=== PATIENT | female | born 1945 | race Caucasian/White ===

== ENCOUNTER 2016-11-16 15:22 | Inpatient (IN) ==
[~2016-11-16 15:22] MED LIST: *HR* Etomidate 20 MG/10 ML AMPUL IVP ONE; *HR* Midazolam HCl 5 MG/5 ML VIAL IVP ONE
[2016-11-16] MEDS ORDERED: Ipratropium/Albuterol Neb 3 ML IH ONE (15:36)
[2016-11-16] MEDS ORDERED: methylPREDNISolone 125 MG/2 ML VIAL IVP ONE (15:36)
--- NOTE | 2016-11-16 15:51 | Emergency Department Note ---
Disposition Clinical Impression: Acute exacerbation of chronic obstructive airways disease, Acute respiratory failure with hypoxia and hypercapnia Disposition: Admitted As Inpatient Condition: Fair Time of Disposition: 18:00 SOB HPI - General Chief Complaint: ED Shortness of Breath/Dyspnea Stated Complaint: SOB/CP/HIGH BP Time Seen by Provider: 11/16/16 15:29 Nursing Notes Reviewed: Yes Vital Signs Reviewed: Yes - History of Present Illness Patient is a 71-year-old female who presents to [facility] ED in respiratory distress. EMS states when they arrived at her house, she was saturating at low 70s. Patient was on 2.5 L home oxygen with extended oxygen tubing. They placed her on 6 L and when patient arrived, she was saturating 88% . She was placed on a nonrebreather which improved her oxygen up to 100%. We then did back off back to nasal cannula 6 L and patient has been maintaining at 92%. Per family, patient has had approximately 3 days of worsening respiratory status. They did not note any cough or cold prior to this that seemed any worse than her normal baseline COPD. Patient has been acting a little bit more altered today and daughter has been Concerned about her falling asleep watching TV. Denies any nausea, vomiting, fever or chills. Patient also noted some sharp chest pains previously that are now resolved. Denies any abdominal pain, problems with urination or bowel movements. Pt Subjective Complaint: shortness of breath Onset (ago): day(s) Context: occurred during exertion Severity: severe Consistency/Duration: gradually worsening Improves with: oxygen, rest, upright position Worsens with: exertion Known history of: COPD Associated symptoms: Reports: chest pain, wheezing. Denies: fever, cough, nausea/vomiting, abdominal pain Treatment prior to arrival: none Cough present: Yes Cough Description: Non-Productive - Related Data Home oxygen amount: 2 liters (2.5) Home Medications Medication Instructions Recorded Confirmed Aclidinium [place] [Tudorza 400 mcg IH BID 11/16/16 11/16/16 Pressair] Albuterol Neb [Proventil Neb] 2.5 mg IH Q4H PRN 11/16/16 11/16/16 Albuterol Sulfate [Ventolin Hfa] 2 puff IH Q4H PRN 11/16/16 11/16/16 Alendronate Sodium [Fosamax] 70 mg PO QWEEK 11/16/16 11/16/16 Amlodipine [Norvasc] 5 mg PO DAILY 11/16/16 11/16/16 Aspirin Enteric Coated [Aspirin EC] 325 mg PO DAILY 11/16/16 11/16/16 Atenolol [Tenormin] 25 mg PO DAILY 11/16/16 11/16/16 BuPROPion SR (12 HR) [Wellbutrin 200 mg PO BID 11/16/16 11/16/16 SR] Budesonide/Formoterol 160/4.5 2 puff IH BIDR 11/16/16 11/16/16 [Symbicort 160/4.5] Ergocalciferol (VITAMIN D2) 50,000 unit PO QWEEK 11/16/16 11/16/16 [Vitamin D2] Escitalopram [Lexapro] 20 mg PO DAILY 11/16/16 11/16/16 Folic Acid [Folic Acid] 1 mg PO DAILY 11/16/16 11/16/16 Gabapentin [Neurontin] 300 mg PO BID 11/16/16 11/16/16 Ipratropium/Albuterol Neb [Duoneb] 3 ml IH Q6H PRN 11/16/16 11/16/16 LORazepam [Ativan] 1 mg PO QID 11/16/16 11/16/16 Lamotrigine [Lamictal] 100 mg PO DAILY 11/16/16 11/16/16 Lansoprazole [Prevacid] 30 mg PO DAILY 11/16/16 11/16/16 Levothyroxine Sodium [Synthroid] 200 mcg PO QAM 11/16/16 11/16/16 Linagliptin [Tradjenta] 5 mg PO DAILY 11/16/16 11/16/16 Losartan/Hydrochlorothiazide 1 each PO DAILY 11/16/16 11/16/16 [Hyzaar 100-25 Tablet] Lovastatin [Mevacor] 20 mg PO QPM 11/16/16 11/16/16 Metformin HCl [Metformin HCl ER] 1,500 mg PO DAILY 11/16/16 11/16/16 Methotrexate [Otrexup] 12.5 mg PO QWEEK 11/16/16 11/16/16 Potassium Chloride [Klor-Con 10] 10 meq PO TID 11/16/16 11/16/16 Allergies Allergy/AdvReac Type Severity Reaction Status Date / Time No Known Allergies Allergy Verified 04/01/16 11:12 All systems ED: reviewed and negative except as stated. Past Medical History - Past Medical History Attestation: Yes The following information was validated with the patient. Source: patient Medical history: Reports: COPD, diabetes, hyperlipidemia, hypertension, thyroid disease Physical Exam - General Limitations: no limitations General appearance: alert, obtunded - Head Head exam: atraumatic, normocephalic, normal inspection - Eye Eye exam: Present: normal appearance, PERRL, EOMI - ENT ENT exam: normal exam, normal oropharynx, mucous membranes moist - Neck Neck exam: Present: normal inspection, full ROM, trachea midline - Chest Chest inspection: Present: normal inspection, symmetric chest wall rise - Respiratory Respiratory exam: Present: wheezes, other (Decreased breath sounds bilaterally) - Cardiovascular Cardiovascular exam: Present: normal rhythm, tachycardia - Abdominal Exam Abdominal exam: Present: soft, Non-Tender. Absent: tenderness, distention, guarding, rebound, rigidity - Extremities Exam Extremities exam: Present: normal inspection, full ROM. Absent: tenderness, pedal edema - Back Exam Back exam: Present: normal inspection, full ROM. Absent: tenderness - Neurological Exam Neurological exam: Present: alert, oriented X3 - Psychiatric Psychiatric exam: Present: normal affect - Skin Skin exam: Present: warm, dry, intact, normal color Course Course Narrative: Patient seen and examined. Acute respiratory failure. Patient looks like she is working hard to breathe. Using accessory muscles. Respiratory therapy was called for a triple DuoNeb. Also asked them to bring down the BiPAP. Critical care workup initiated. ABG ordered. - Reevaluation(s) Reevaluation #1: ABG showed severe respiratory acidosis. Unsure where patient baseline normally is. We repeated an ABG approximately 30 minutes later. It did show some improvement in the pH as well as CO2 and bicarbonate. We will continue to monitor. Patient will need close observation as she may need to be intubated if she does not continue to improve. I believe the patient's problem is purely secondary to her severe COPD. She does not have any sign of pneumonia on her chest x-ray. She is afebrile and does not have leukocytosis. Patient will be closely monitored for any development of infectious process. We will hold off on septic workup at this time. I spoke with hospitalist Dr. Mojica who has accepted patient for admission. Patient to go to 2 N. or ICU. Time: 18:00 Vital Signs Temperature 98.5 F 11/16/16 15:24 Pulse Rate 129 11/16/16 15:24 Respiratory Rate 30 11/16/16 15:24 Blood Pressure 205/118 11/16/16 15:24 O2 Sat by Pulse Oximetry 95 11/16/16 15:24 Temperature 98.5 F 11/16/16 15:24 Pulse Rate 110 11/16/16 17:02 Respiratory Rate 26 11/16/16 18:09 Blood Pressure 138/72 11/16/16 18:09 O2 Sat by Pulse Oximetry 90 L 11/16/16 17:02 Oxygen Delivery Oxygen Delivery Bipap Shortness of Breath/Dyspnea - Medical Records Medical records reviewed: Yes I reviewed the patient's medical records. - Lab Data Lab results reviewed: Yes I reviewed the patient's lab results. Result diagrams: 11/16/16 16:09 11/16/16 16:09 Lab Results 11/16/16 11/16/16 11/16/16 Range/Units 16:09 16:09 16:09 WBC 8.7 (4.3-11.1) K/mcL RBC 4.72 (3.82-4.97) M/mcL Hgb 13.7 (11.5-15.4) g/dL Hct 45.1 H (35.3-44.9) % MCV 95.6 (83.0-100.0) fL MCH 29.0 (28.0-33.3) pg MCHC 30.4 L (31.6-35.5) g/dL RDW 13.3 (11.5-14.5) % Plt Count 236 (140-400) K/mcL MPV 9.7 (9.4-12.4) fL Immature Gran % 0.7 (0-4) % Seg Neutrophils % 84.3 % Lymphocytes % 6.6 % Monocytes % 7.9 % Eosinophils % 0.0 % Basophils % 0.5 % Neutrophils # 7.3 (1.6-8.9) K/mcL Lymphocytes # 0.6 (0.6-4.6) K/mcL Monocytes # 0.7 (0.0-1.3) K/mcL Eosinophils # 0.0 (0.0-0.6) K/mcL Basophils # 0.0 (0.0-0.2) K/mcL ABG pH (7.32-7.45) pH Units ABG pCO2 (35-45) mmHg ABG pO2 (85-104) mmHg ABG HCO3 (21-27) mEQ/L ABG Total CO2 (20-26) mEq/L ABG O2 Saturation (95-98) % ABG Base Excess (-2.0 to 3.0) mEq/L Liter Flow L/MIN Blood Gas Modality Inspired O2 % Sodium 143 (136-145) mEq/L Potassium 4.0 (3.5-4.5) mEq/L Chloride 96 L (98-109) mEq/L Carbon Dioxide 35 H (19-29) mEq/L BUN 19 (7-20) mg/dL Creatinine 0.71 (0.57-1.11) mg/dL Est GFR ( Amer) > 60 (> 60) Est GFR (Non-Af Amer) > 60 (> 60) BUN/Creatinine Ratio 27 H (6-26) Glucose 189 H (70-99) mg/dL Calculated Osmolality 303 H (280-300) Lactic Acid 0.7 (0.5-2.2) mmol/L Calcium 9.0 (8.6-10.8) mg/dL Troponin I (0-0.03) ng/mL B-Natriuretic Peptide (0-100) pg/mL TSH 0.687 (0.350-4.840) mcIU/mL 11/16/16 11/16/16 11/16/16 Range/Units 16:09 16:09 16:20 WBC (4.3-11.1) K/mcL RBC (3.82-4.97) M/mcL Hgb (11.5-15.4) g/dL Hct (35.3-44.9) % MCV (83.0-100.0) fL MCH (28.0-33.3) pg MCHC (31.6-35.5) g/dL RDW (11.5-14.5) % Plt Count (140-400) K/mcL MPV (9.4-12.4) fL Immature Gran % (0-4) % Seg Neutrophils % % Lymphocytes % % Monocytes % % Eosinophils % % Basophils % % Neutrophils # (1.6-8.9) K/mcL Lymphocytes # (0.6-4.6) K/mcL Monocytes # (0.0-1.3) K/mcL Eosinophils # (0.0-0.6) K/mcL Basophils # (0.0-0.2) K/mcL ABG pH 7.13 L* (7.32-7.45) pH Units ABG pCO2 139 H* (35-45) mmHg ABG pO2 58 L (85-104) mmHg ABG HCO3 46.2 H (21-27) mEQ/L ABG Total CO2 50.5 H (20-26) mEq/L ABG O2 Saturation 80 L (95-98) % ABG Base Excess 10.4 H (-2.0 to 3.0) mEq/L Liter Flow 6 L/MIN Blood Gas Modality NC Inspired O2 44 % Sodium (136-145) mEq/L Potassium (3.5-4.5) mEq/L Chloride (98-109) mEq/L Carbon Dioxide (19-29) mEq/L BUN (7-20) mg/dL Creatinine (0.57-1.11) mg/dL Est GFR ( Amer) (> 60) Est GFR (Non-Af Amer) (> 60) BUN/Creatinine Ratio (6-26) Glucose (70-99) mg/dL Calculated Osmolality (280-300) Lactic Acid (0.5-2.2) mmol/L Calcium (8.6-10.8) mg/dL Troponin I 0.01 (0-0.03) ng/mL B-Natriuretic Peptide 106 H (0-100) pg/mL TSH (0.350-4.840) mcIU/mL 11/16/16 Range/Units 17:20 WBC (4.3-11.1) K/mcL RBC (3.82-4.97) M/mcL Hgb (11.5-15.4) g/dL Hct (35.3-44.9) % MCV (83.0-100.0) fL MCH (28.0-33.3) pg MCHC (31.6-35.5) g/dL RDW (11.5-14.5) % Plt Count (140-400) K/mcL MPV (9.4-12.4) fL Immature Gran % (0-4) % Seg Neutrophils % % Lymphocytes % % Monocytes % % Eosinophils % % Basophils % % Neutrophils # (1.6-8.9) K/mcL Lymphocytes # (0.6-4.6) K/mcL Monocytes # (0.0-1.3) K/mcL Eosinophils # (0.0-0.6) K/mcL Basophils # (0.0-0.2) K/mcL ABG pH 7.17 L* (7.32-7.45) pH Units ABG pCO2 123 H* (35-45) mmHg ABG pO2 72 L (85-104) mmHg ABG HCO3 44.9 H (21-27) mEQ/L ABG Total CO2 48.7 H (20-26) mEq/L ABG O2 Saturation 90 L (95-98) % ABG Base Excess 10.6 H (-2.0 to 3.0) mEq/L Liter Flow L/MIN Blood Gas Modality BIPAP Inspired O2 45 % Sodium (136-145) mEq/L Potassium (3.5-4.5) mEq/L Chloride (98-109) mEq/L Carbon Dioxide (19-29) mEq/L BUN (7-20) mg/dL Creatinine (0.57-1.11) mg/dL Est GFR ( Amer) (> 60) Est GFR (Non-Af Amer) (> 60) BUN/Creatinine Ratio (6-26) Glucose (70-99) mg/dL Calculated Osmolality (280-300) Lactic Acid (0.5-2.2) mmol/L Calcium (8.6-10.8) mg/dL Troponin I (0-0.03) ng/mL B-Natriuretic Peptide (0-100) pg/mL TSH (0.350-4.840) mcIU/mL - Radiology Data Radiology results reviewed: Yes I reviewed the patient's radiology results. Chest X-Ray 11/16/16 15:36 IMPRESSION: 1. Mildly enlarged cardiac silhouette, which appears similar to the prior exam. 2. Prominence of the interstitial markings bilaterally, which likely is a due to emphysematous changes. 3. Bibasilar atelectasis. D/ / Robin Vega MD / Robin Vega MD Interpreting Provider: Robin Vega MD - EKG Data EKG attestation: Yes I reviewed and interpreted this EKG. EKG results narrative: EKG done at 1539 shows sinus tachycardia with a rate of approximately 1 40 bpm. Poor quality throughout the anterior leads. No acute ST elevation or depression in the inferior leads. We will repeat EKG. EKG done at 1626 shows sinus tachycardia with a rate of [address] elevation or depression. Normal axis. Inverted T waves in leads aVL.
[2016-11-16 16:19] LABS: Basophils % 0.5 %; Hematocrit 45.1 % (35.3-44.9); Hemoglobin 13.7 g/dL (11.5-15.4); Immature Granulocytes % 0.7 % (0-4); Lymphocytes # 0.6 K/mcL (0.6-4.6); Lymphocytes % 6.6 %; Mean Corpuscular HGB Conc 30.4 g/dL (31.6-35.5); Mean Corpuscular Volume 95.6 fL (83.0-100.0); Mean Platelet Volume 9.7 fL (9.4-12.4); Monocytes # 0.7 K/mcL (0.0-1.3); Monocytes % 7.9 %; Neutrophils # 7.3 K/mcL (1.6-8.9); Platelet Count 236 K/mcL (140-400); Red Blood Count 4.72 M/mcL (3.82-4.97); Red Cell Distribution Width 13.3 % (11.5-14.5); Segmented Neutrophils % 84.3 %
--- NOTE | 2016-11-16 16:25 | Emergency Department Note ---
START Narrative - START START: I examined this patient and my medical decision-making was reviewed with the MEASURING MACHINE OPERATOR/PA/Advanced Practice Nurse/Resident Physician. I agree with the documented findings, disposition and treatment plan as described except to the extent set forth below. 47 yo female presents with respiratory distress and hypoxia for the past three days. Pt is unable to give a history regarding her symptoms. +hx of COPD on 2L o2 at home. Daughter states the patient requested to turn up her O2 last night due to difficulty breathing. Falling asleep more easily over the past couple days. Never intubated. +chest pain over the past few days as well. CP is sternal prior to arrival. Pt is using accessory muscles, satting 78% on RA on EMS arrival. Pt given breathing treatment en route to hospital. Pt given continued breathing treatments and placed on BiPAP after initial evaluation. Pt gradually improved and was comfortable to be admitted to the hospital for continuation of care.
[2016-11-16 16:30] LABS: BUN/Creatinine Ratio 27 (6-26); Blood Urea Nitrogen 19 mg/dL (7-20); Carbon Dioxide 35 mEq/L (19-29); Chloride 96 mEq/L (98-109); Glucose 189 mg/dL (70-99); Osmolality,Calculated 303 (280-300); Sodium 143 mEq/L (136-145); eGFR For African Americans > 60 (> 60); eGFR For Non-African Americans > 60 (> 60)
[2016-11-16 16:38] LABS: ABG Base Excess 10.4 mEq/L (-2.0 to 3.0); ABG HCO3 46.2 mEQ/L (21-27); ABG Oxygen Saturation 80 % (95-98); ABG PO2 58 mmHg (85-104); ABG TCO2 50.5 mEq/L (20-26)
[2016-11-16 16:43] LABS: ABG PCO2 139 mmHg (35-45); ABG PH 7.13 pH Units (7.32-7.45); Blood Gas FiO2 44 %; Blood Gas Liter Flow 6 L/MIN
[2016-11-16 17:31] LABS: ABG Base Excess 10.6 mEq/L (-2.0 to 3.0); ABG HCO3 44.9 mEQ/L (21-27); ABG Oxygen Saturation 90 % (95-98); ABG PO2 72 mmHg (85-104); ABG TCO2 48.7 mEq/L (20-26)
[2016-11-16 17:33] LABS: ABG PH 7.17 pH Units (7.32-7.45)
[2016-11-16 17:34] LABS: ABG PCO2 123 mmHg (35-45); Blood Gas FiO2 45 %
[2016-11-16 18:27] LABS: Thyroid Stimulating Hormone 0.687 mcIU/mL (0.350-4.840)
[2016-11-16] MEDS ORDERED: Naloxone 0.4 MG/ML INJ IVP PRN (20:12)
[2016-11-16 20:17] LABS: ABG Base Excess 12.3 mEq/L (-2.0 to 3.0); ABG HCO3 45.9 mEQ/L (21-27); ABG Oxygen Saturation 86 % (95-98); ABG PO2 64 mmHg (85-104); ABG TCO2 49.7 mEq/L (20-26)
[2016-11-16] MEDS ORDERED: *HR* Dextrose 50 % in Water (Syg) 50 ML SYRINGE IVP PRN (20:17)
[2016-11-16] MEDS ORDERED: Dextrose Gel 15 GM PO PRN ×2 (20:17)
[2016-11-16 20:18] LABS: ABG PCO2 123 mmHg (35-45)
[2016-11-16 20:19] LABS: ABG PH 7.18 pH Units (7.32-7.45); Blood Gas FiO2 50 %; Blood Gas PEEP 8 cm H2O; Blood Gas Respiration Rate 18
[2016-11-16] MEDS ORDERED: Lacri-Lube 3.5 GM TUBE BOTH EYES PRN (20:27)
--- NOTE | 2016-11-16 20:50 | Internal Med History&Physical ---
Date of Encounter: 11/16/16 Time of Encounter: 20:00 Assessment and Plan (1) Respiratory acidosis Current visit: Yes Status: Acute (2) Acute and chronic respiratory failure ([id number]) Current visit: Yes Status: Acute Patient failed supplemental oxygen, BiPAP therapy. Pt is intubated and is on mechanical ventilation. Pulmonary consultation. Treat acute exacerbation of of COPD, with the steroids, antibiotics and bronchodilators. Qualifiers: Respiratory failure complication: hypoxia and hypercapnia Qualified Code(s) : J96.21 - Acute and chronic respiratory failure with hypoxia; J96.22 - Acute and chronic respiratory failure with hypercapnia (3) Pulmonary edema Current visit: Yes Status: Acute Chest x-ray shows evidence of pulmonary edema. Treat with intravenous Lasix. We will obtain echocardiogram to evaluate for LV ejection fraction. Will consider cardiology consultation based on echocardiogram. Qualifiers: Chronicity: acute Qualified Code(s): J81.0 - Acute pulmonary edema (4) Acute exacerbation of chronic obstructive airways disease Current visit: Yes Status: Acute Will treat with levofloxacin, Solu-Medrol, bronchodilators. (5) Diabetes mellitus Current visit: Yes Status: Chronic Start sliding scale insulin Qualifiers: Diabetes mellitus type: type 2 Diabetes mellitus complication status: with unspecified complications Diabetes mellitus fpc insulin use: without fpc use Qualified Code(s): E11.8 - Type 2 diabetes mellitus with unspecified complications (6) Nicotine dependence Current visit: Yes Status: Chronic will consider nicotine patches when the pt is alert Qualifiers: Nicotine product type: cigarettes Substance use status: other nicotine- induced disorder Qualified Code(s): F17.218 - Nicotine dependence, cigarettes , with other nicotine-induced disorders (7) Hypertension Current visit: Yes Status: Chronic Cotinue home medications Qualifiers: Hypertension type: essential hypertension Qualified Code(s): I10 - Essential (primary) hypertension (8) DVT prophylaxis Current visit: Yes Status: Acute subQ Heparin Internal Medicine - H&P: HPI Chief complaint: Shortness of breath Admitted From: Emergency Dept Plans for Post Hospital Care: Home History of present illness: Ms. Jhaveri is a 71 year old female With Past medical history significant for COPD, chronic respiratory failure on home oxygen, current smoker, diabetes mellitus, hyperlipidemia, hypertension, arthritis (on methotrexate), degenerative disc disease. Patient is not able to give clinical details, as the pt is somnolent and not responding to verbal commands. Patients daughters at the bedside and was able to give some gentle details. Patient apparently has been feeling short of breath for the last 3 days and is gradually worsening. Initially started as shortness of breath on exertion but now short of breath at rest. She was increasingly somnolent. She has cough and minimal sputum production. No fevers reported. No chest pain reported. The daughter was concerned about her shortness of breath and mental status and called EMS. Per the ER note, patient was apparently saturating at about 70%, on 2.5 LPM ( her home O2). Her Oxygen saturation saturations apparently improved to 88% on 6 L of oxygen and 100% on nonrebreather. She was evaluated in the emergency department and was noted to have respiratory acidosis with significant CO2 retention. She was started on BiPAP therapy and was given solumedrol and admitted to the hospitalist service. On my evaluation, patient was somnolent and was not amendable to clinical details. She has not responded to verbal stimuli. Stat ABG showed respiratory acidosis with pH of 7.18 and PCO2 of 123, which was not significantly improved from prior ABG. Hence pt was intubated and started on mechanical ventilation. Discussed the details with the patients daughter who is at the bedside and she was agreeable for intubation. Patient is critically ill. Critical care time spent in organizing and co- ordination of the care and counselling is about 50 minutes. Past Med Surg Social Fam HX - Past Medical History Medical history: COPD, diabetes, hyperlipidemia, hypertension, thyroid disease Psychiatric history: anxiety, depression - Social History Smoking Status: Current every day smoker Smokeless Tobacco Status: No Alcohol use: none Drug use: other - Additional Family History Additional family history: Not able to obtain family hx, due to her mental status Internal Medicine - H&P: Meds Aclidinium [place] [Tudorza Pressair] 400 mcg IH BID 11/16/16 [History] Albuterol Neb [Proventil Neb] 2.5 mg IH Q4H PRN 11/16/16 [History] Albuterol Sulfate [Ventolin Hfa] 2 puff IH Q4H PRN 11/16/16 [History] Alendronate Sodium [Fosamax] 70 mg PO QWEEK 11/16/16 [History] Amlodipine [Norvasc] 5 mg PO DAILY 11/16/16 [History] Aspirin Enteric Coated [Aspirin EC] 325 mg PO DAILY 11/16/16 [History] Atenolol [Tenormin] 25 mg PO DAILY 11/16/16 [History] BuPROPion SR (12 HR) [Wellbutrin SR] 200 mg PO BID 11/16/16 [History] Budesonide/Formoterol 160/4.5 [Symbicort 160/4.5] 2 puff IH BIDR 11/16/16 [ History] Ergocalciferol (VITAMIN D2) [Vitamin D2] 50,000 unit PO QWEEK 11/16/16 [History] Escitalopram [Lexapro] 20 mg PO DAILY 11/16/16 [History] Folic Acid [Folic Acid] 1 mg PO DAILY 11/16/16 [History] Gabapentin [Neurontin] 300 mg PO BID 11/16/16 [History] Ipratropium/Albuterol Neb [Duoneb] 3 ml IH Q6H PRN 11/16/16 [History] LORazepam [Ativan] 1 mg PO QID 11/16/16 [History] Lamotrigine [Lamictal] 100 mg PO DAILY 11/16/16 [History] Lansoprazole [Prevacid] 30 mg PO DAILY 11/16/16 [History] Levothyroxine Sodium [Synthroid] 200 mcg PO QAM 11/16/16 [History] Linagliptin [Tradjenta] 5 mg PO DAILY 11/16/16 [History] Losartan/Hydrochlorothiazide [Hyzaar 100-25 Tablet] 1 each PO DAILY 11/16/16 [ History] Lovastatin [Mevacor] 20 mg PO QPM 11/16/16 [History] Metformin HCl [Metformin HCl ER] 1,500 mg PO DAILY 11/16/16 [History] Methotrexate [Otrexup] 12.5 mg PO QWEEK 11/16/16 [History] Potassium Chloride [Klor-Con 10] 10 meq PO TID 11/16/16 [History] Allergies No Known Allergies Allergy (Verified 04/01/16 11:12) ROS unobtainable: due to mental status - Constitutional Vitals: Temp Pulse Resp BP Pulse Ox 97.7 F 103 38 140/85 92 L 11/16/16 18:48 11/16/16 20:00 11/16/16 20:00 11/16/16 20:00 11/16/16 20:00 Exam: General: Somnulent at the time of my evaluation HEENT: BiPAP mask in place. No conjunctival palor or scleral icterus. Pupils small, with no significant reaction to light Neck: No obvious neck swellings Lungs: Diminished bilateral air entry Cardiac: Regular rate and rhythm. No significant murmurs Abdomen: Soft, non tender. Bowel sounds present Neurological: Somnolent. Not responsive to verbal commands Psych: Somnolent. Not responsive to verbal commands Extremities: Right sided leg edema present Skin: No generalized rash Internal Med - H&P Results - Labs CBC & Chem 7: 11/17/16 03:43 11/17/16 03:43 - ABG Interpretation ABG results: 11/16/16 20:03 ABG pH 7.18 L* ABG pCO2 123 H* ABG pO2 64 L ABG HCO3 45.9 H ABG Total CO2 49.7 H ABG O2 Saturation 86 L ABG Base Excess 12.3 H - EKG Data -: EKG Interpreted by Myself - EKG Data EKG comments: Baseline iiregularity. Needs repeat EKG 11/17/16 06:19 - Impressions ITS Impressions Chest X-Ray 11/16/16 15:36 IMPRESSION: 1. Mildly enlarged cardiac silhouette, which appears similar to the prior exam. 2. Prominence of the interstitial markings bilaterally, which likely is a due to emphysematous changes. 3. Bibasilar atelectasis. D/ / oRbin Vega MD / Robin Vega MD Interpreting Provider: Robin Vega MD Chest X-Ray 11/16/16 20:46 IMPRESSION: 1. The orogastric tube tip and side port are located in the gastric body. 2. The endotracheal tube tip is located 4.8 cm above the solitario. 3. Pulmonary edema. D/ / 11/16/2016 21:18:49 Hugh Victor MD / alfonzo Interpreting Provider: Hugh Victor MD X-Ray 11/16/16 20:46
[2016-11-16] MEDS: Ipratropium/Albuterol Neb 3 ML IH SCH (21:01)
[2016-11-16] MEDS: Chlorhexidine Rinse 15 ML MOUTHWASH MM SCH (21:57)
[2016-11-16] MEDS: Levofloxacin 750 MG/150 ML 750 MG/150 ML BAG IVPB SCH (21:57)
[2016-11-16 22:39] LABS: ABG Base Excess 16.7 mEq/L (-2.0 to 3.0); ABG HCO3 48.1 mEQ/L (21-27); ABG Oxygen Saturation 100 % (95-98); ABG PH 7.29 pH Units (7.32-7.45); ABG PO2 183 mmHg (85-104); ABG TCO2 51.2 mEq/L (20-26)
[2016-11-16 22:42] LABS: ABG PCO2 100 mmHg (35-45)
[2016-11-16 22:43] LABS: Blood Gas FiO2 100 %; Blood Gas Respiration Rate 16; Blood Gas VT 450 cc
[2016-11-17] MEDS ORDERED: Furosemide 40 MG/4 ML VIAL IVP ONE
[2016-11-17] MEDS: Ipratropium/Albuterol Neb 3 ML IH SCH ×7 (00:13→23:32)
[2016-11-17 00:17] LABS: Bilirubin,Urine Moderate (Negative); Blood,Urine Moderate (Negative); Clarity,Urine Cloudy (Clear); Color,Urine Dark Yellow (Yellow); Glucose,Urine (UA) 100 mg/dL (Normal); Ketones,Urine Negative (Negative); Leukocyte Esterase,Urine Negative (Negative); Nitrite,Urine Negative (Negative); PH,Urine 5.5 pH Units (5.0-8.0); Protein,Urine >=300 mg/dL (Neg-Trace); Specific Gravity,Urine 1.025 (1.010-1.025); Urobilinogen,Urine Normal (Normal)
[2016-11-17 00:18] LABS: ABG Base Excess 19.3 mEq/L (-2.0 to 3.0); ABG HCO3 50.1 mEQ/L (21-27); ABG Oxygen Saturation 96 % (95-98); ABG PH 7.33 pH Units (7.32-7.45); ABG PO2 85 mmHg (85-104)
[2016-11-17 00:19] LABS: Squamous Epithelial Cell,Urine Many per lpf (None-Few)
[2016-11-17 00:19] LABS: ABG PCO2 95 mmHg (35-45); Blood Gas FiO2 80 %; Blood Gas Respiration Rate 16
[2016-11-17 00:20] LABS: Blood Gas PEEP 5 cm H2O; Blood Gas VT 450 cc
[2016-11-17] MEDS: *HR* Heparin 5,000 UNIT/ML VIAL SQ SCH ×3 (00:24→18:16)
[2016-11-17] MEDS: methylPREDNISolone 125 MG/2 ML VIAL IVP SCH ×4 (00:24→18:16)
[2016-11-17] MEDS: Insulin LISPRO 300 UNITS/3 ML VIAL SQ SCH ×4 (00:25→18:21)
[2016-11-17] MEDS: Lacri-Lube 3.5 GM TUBE BOTH EYES SCH ×6 (00:25→20:17)
[2016-11-17 00:31] LABS: Granular Casts,Urine Few per lpf (None Seen); Hyaline Casts,Urine Many per lpf (None-Few); Renal Epithelial Cells,Urine Few per hpf (None-Few)
[2016-11-17 00:33] LABS: Mucus,Urine Many (Few); White Blood Cell Casts,Urine Moderate per lpf (None Seen)
[2016-11-17 00:35] LABS: Bacteria,Urine Many per hpf (None-Few)
[2016-11-17 00:37] LABS: Yeast,Urine Few per hpf (None Seen)
[2016-11-17 04:00] LABS: Basophils % 0.2 %; Hematocrit 39.4 % (35.3-44.9); Hemoglobin 12.6 g/dL (11.5-15.4); Immature Granulocytes % 0.4 % (0-4); Lymphocytes # 0.2 K/mcL (0.6-4.6); Lymphocytes % 3.1 %; Mean Corpuscular Hemoglobin 30.4 pg (28.0-33.3); Mean Corpuscular Volume 95.2 fL (83.0-100.0); Mean Platelet Volume 10.2 fL (9.4-12.4); Monocytes # 0.3 K/mcL (0.0-1.3); Monocytes % 4.8 %; Neutrophils # 4.8 K/mcL (1.6-8.9); Platelet Count 191 K/mcL (140-400); Red Blood Count 4.14 M/mcL (3.82-4.97); Red Cell Distribution Width 13.3 % (11.5-14.5); Segmented Neutrophils % 91.5 %
[2016-11-17 04:23] LABS: Alanine Aminotransferase 8 Units/L (0-55); Albumin/Globulin Ratio 0.9 (1.1-2.2); Alkaline Phosphatase 66 Units/L (38-126); Aspartate Amino Transferase 14 Units/L (5-34); BUN/Creatinine Ratio 32 (6-26); Bilirubin,Total 0.5 mg/dL (0.2-1.2); Blood Urea Nitrogen 28 mg/dL (7-20); Calcium 8.8 mg/dL (8.6-10.8); Carbon Dioxide 37 mEq/L (19-29); Chloride 94 mEq/L (98-109); Globulin 3.4 g/dL (2.4-3.5); Glucose 145 mg/dL (70-99); Osmolality,Calculated 302 (280-300); Potassium 3.7 mEq/L (3.5-4.5); Sodium 142 mEq/L (136-145); Total Protein 6.4 g/dL (6.0-8.3); eGFR For African Americans > 60 (> 60); eGFR For Non-African Americans > 60 (> 60)
[2016-11-17 04:38] LABS: Platelet Estimate Normal (Normal)
[2016-11-17 05:04] LABS: ABG Base Excess 22.9 mEq/L (-2.0 to 3.0); ABG HCO3 50.6 mEQ/L (21-27); ABG Oxygen Saturation 93 % (95-98); ABG PCO2 68 mmHg (35-45); ABG PH 7.48 pH Units (7.32-7.45); ABG PO2 62 mmHg (85-104); ABG TCO2 52.7 mEq/L (20-26)
[2016-11-17 05:05] LABS: Blood Gas FiO2 60 %; Blood Gas PEEP 5 cm H2O; Blood Gas Respiration Rate 20; Blood Gas VT 450 cc
[2016-11-17] MEDS: Chlorhexidine Rinse 15 ML MOUTHWASH MM SCH ×2 (07:49→20:14)
[2016-11-17] MEDS ORDERED: lamoTRIgine 100 MG TABLET GTUBE SCH (09:00)
[2016-11-17] MEDS ORDERED: Losartan/HCTZ 50-12.5 TABLET GTUBE SCH (09:00)
[2016-11-17] MEDS ORDERED: Gabapentin 300 MG CAPSULE GTUBE SCH (09:00)
[2016-11-17] MEDS ORDERED: amLODIPine 5 MG TABLET GTUBE SCH (09:00)
--- NOTE | 2016-11-17 09:17 | Pulmonology Consult Note ---
<Arthur Handley - Last Filed: 11/17/16 10:17> Date of Encounter: 11/17/16 Time of Encounter: 09:10 Assessment and Plan (1) Acute exacerbation of chronic obstructive airways disease Current Visit: Yes Status: Acute 71-year-old female with a history of COPD on 2.5 L home oxygen presented with chief complaint of shortness of breath worsening over the past 3 days. Patient was somnolent on presentation. Initial ABG showed respiratory acidosis and hypercapnia with hypoxia. Patient was placed on BiPAP and showed minimal improvement with repeat ABG. She was moved to the floor where hospitalist noticed patient was somnolent, unresponsive to verbal stimuli. Third ABG ordered on the patient showed no improvement and her doctor acidosis and she was intubated and moved to the ICU. Checks her x-ray showed worsening left lower lobe atelectasis, emphysema and pulmonary edema. 2nd to infectious etiology, new onset CHF unknown diastolic or systolic, undiagnosed sleep apnea. -Patient is asleep and intubated at this time -Lung exam shows diminished breath sounds throughout -ABG shows improvement in respiratory acidosis: PH: 7.48, PCO2 68, PO2 62, bicarbonate 50.6 -May consider titrating tidal volume to 6-8cc/kg. -Repeat ABG, CBC, BMP in the morning -Continue Symbicort, nebulizer treatments, Solu-Medrol, Levaquin (2) -due to diminished breath sounds patient will remain intubated for additional night. -start fentanyl drip for further sedation. Possible CAP, unknown bacterial or viral in origin -Respiratory panel -urine antigens -sputum and blood cultures pending -influenza screen Possible CHF -echocardiogram pending -20 lasix BID: 1+ pedal edema on exam. -strict I/O -troponin WNL Sleep apnea -patient will need outpatient sleep study -RF obesity, Hypertension, tobacco abuse DVT/PE less likely wells score for DVT 0 Wells score for PE 1.5 B/l Lower extremity dopplers pending. (2) Acute respiratory failure with hypoxia and hypercapnia Current Visit: Yes Status: Acute Plan as stated above. (3) Pulmonary edema Current Visit: Yes Status: Acute 2nd to undiagnosed CHF. unknown diastolic or systolic. -Chest x-ray showed cardiomegaly and bilateral pulmonary edema. -last echo in 2014 showed LVEF of 65% with no wall motion or valvular abnormalities -Echocardiogram pending -Strict I's and O's -Start on 20 mg Lasix IV -Continue Rivas catheter Qualifiers: Chronicity: acute Qualified Code(s): J81.0 - Acute pulmonary edema (4) Hx of rheumatoid arthritis Current Visit: Yes Status: Chronic hx of rheumatoid arthritis being followed by Dr. Romo. -Will hold methotrexate since concern for pneumonia as cause for acute on chronic respiratory failure. (5) Hx of major depression Current Visit: Yes Status: Chronic unknown if controlled as patient is sedated and intubated. continue lexapro (6) History of CVA in adulthood Current Visit: Yes Status: Chronic Patient had lacunar infarct 2014 with symptoms of left sided weakness. -will continue home statin, and aspirin 81mg. (7) Diabetes mellitus Current Visit: Yes Status: Chronic Controlled. Last hemoglobin A1c 5.9 -At home patient is on metformin and Linagliptin. -currently on SSI with gluclsoe levels between 150-200 Qualifiers: Diabetes mellitus type: type 2 Diabetes mellitus complication status: with unspecified complications Diabetes mellitus terminal gauger supervisor insulin use: without terminal gauger supervisor use Qualified Code(s): E11.8 - Type 2 diabetes mellitus with unspecified complications (8) Hypertension Current Visit: Yes Status: Chronic Initially patient presented with hypertension with systolic of 203. -Since being intubated and sedated patient's blood pressures under control -Continue home amlodipine, lisinopril/losartan, atenolol. Qualifiers: Hypertension type: essential hypertension Qualified Code(s): I10 - Essential (primary) hypertension (9) DVT prophylaxis Current Visit: Yes Status: Acute continue heparin (10) History of hypothyroidism Current Visit: Yes Status: Chronic TSH within normal limits continue home dose of levothyroxine. History of Present Illness Consult date: 11/17/16 Requesting physician: Blade Palma Reason for consult: other (Acute on chronic respiratory failure) Chief complaint: dyspnea and somlonence History of present illness: 71-year-old female with history of COPD on 2.5 L home oxygen, tobacco abuse, diabetes mellitus 2, hyperlipidemia, hypertension, psoriasis, rheumatoid arthritis presented to [facility] ER with chief complaint of shortness of breath onset 3 days ago. Initially shortness of breath was worse with exertion but this progressed to shortness of breath at rest. Patient was somnolent and history is obtained by talking to daughter. Patient had minimal sputum production and complaint of cough. When EMS arrived they found patient to be saturating at 70% on 2.5 L oxygen. Patient was put on 6 L high flow oxygen which improved her saturations are 88%. Thereafter patient was transitioned to a nonrebreather was increase her oxygen 100%. Initial ABG showed patient in respiratory acidosis pH of 7.18 and a PCO2 of 123. After patient was started on BiPAP there was mild improvement in her PCO2 and it was decided to admit her to the floor. During evaluation of the patient by hospitalist patient was not not responding to verbal stimuli repeat ABG was done showing no improvement and respiratory acidosis and PCO2 levels. It was decided the patient needed to be intubated and started on mechanical ventilation. Patient was transferred to ICU and intubated. She was started on COPD exacerbation regimen of bronchodilators, steroids, and abx. Since being moved to the ICU patient has had no acute events. Chest x-ray shows emphysema with left lower lobe atelectasis. CT chest in August was done and showed emphysema with a left upper lobe nodule that is being followed by outpatient. Past Med Surg Social Fam HX - Past Medical History Medical history: COPD, diabetes, hyperlipidemia, hypertension, thyroid disease, other (Psoriasis, rheumatoid arthritis) Psychiatric history: anxiety, depression - Past Surgical History Surgical History: cholecystectomy, other (Tubal ligation, local cord biopsy, bilateral cataract surgery) - Social History Smoking Status: Current every day smoker Smokeless Tobacco Status: No Alcohol use: none Drug use: other - Family History Father Living Status: Hx Family Respiratory Disorders: Yes (COPD) Hx Family Endocrine Disorder: Yes (Diabetes) Mother Living Status: Hx Family Cardiac Disorders: Yes (Hypertension) Hx Family Endocrine Disorder: Yes (Hypothyroidism, diabetes) Medications and Allergies Aclidinium [place] [Tudorza Pressair] 400 mcg IH BID 11/16/16 [History] Albuterol Neb [Proventil Neb] 2.5 mg IH Q4H PRN 11/16/16 [History] Albuterol Sulfate [Ventolin Hfa] 2 puff IH Q4H PRN 11/16/16 [History] Alendronate Sodium [Fosamax] 70 mg PO QWEEK 11/16/16 [History] Amlodipine [Norvasc] 5 mg PO DAILY 11/16/16 [History] Aspirin Enteric Coated [Aspirin EC] 325 mg PO DAILY 11/16/16 [History] Atenolol [Tenormin] 25 mg PO DAILY 11/16/16 [History] BuPROPion SR (12 HR) [Wellbutrin SR] 200 mg PO BID 11/16/16 [History] Budesonide/Formoterol 160/4.5 [Symbicort 160/4.5] 2 puff IH BIDR 11/16/16 [ History] Ergocalciferol (VITAMIN D2) [Vitamin D2] 50,000 unit PO QWEEK 11/16/16 [History] Escitalopram [Lexapro] 20 mg PO DAILY 11/16/16 [History] Folic Acid [Folic Acid] 1 mg PO DAILY 11/16/16 [History] Gabapentin [Neurontin] 300 mg PO BID 11/16/16 [History] Ipratropium/Albuterol Neb [Duoneb] 3 ml IH Q6H PRN 11/16/16 [History] LORazepam [Ativan] 1 mg PO QID 11/16/16 [History] Lamotrigine [Lamictal] 100 mg PO DAILY 11/16/16 [History] Lansoprazole [Prevacid] 30 mg PO DAILY 11/16/16 [History] Levothyroxine Sodium [Synthroid] 200 mcg PO QAM 11/16/16 [History] Linagliptin [Tradjenta] 5 mg PO DAILY 11/16/16 [History] Losartan/Hydrochlorothiazide [Hyzaar 100-25 Tablet] 1 each PO DAILY 11/16/16 [ History] Lovastatin [Mevacor] 20 mg PO QPM 11/16/16 [History] Metformin HCl [Metformin HCl ER] 1,500 mg PO DAILY 11/16/16 [History] Methotrexate [Otrexup] 12.5 mg PO QWEEK 11/16/16 [History] Potassium Chloride [Klor-Con 10] 10 meq PO TID 11/16/16 [History] Allergies No Known Allergies Allergy (Verified 04/01/16 11:12) ROS unobtainable: due to mental status All Systems: A 10-system review of systems was performed and is negative for pertinent findings except as documented above in the HPI. Physical Examination Vital Signs: Vital Signs, Last 4 Hours Temp Pulse Resp BP Pulse Ox 11/17/16 08:00 92 15 155/91 92 L 11/17/16 07:35 98.8 F 11/17/16 07:25 18 158/85 96 11/17/16 07:00 98.8 F 91 15 151/93 93 L 11/17/16 06:17 18 158/85 96 11/17/16 06:00 94 18 158/95 95 General appearance: no acute distress, asleep (Sedated) Eyes: nonicteric Neck: no lymphadenopathy (/.) Effort: normal (Ventilator control ) Inspection: normal Auscultation: bilateral: diminished breath sounds Cardiovascular: regular rate and rhythm Gastrointestinal: normoactive bowel sounds, soft, non-distended Integumentary: normal Extremities: no cyanosis, no clubbing, edema (1+ bilaterally) unable to assess due to mental status Ventilator Settings Ventilator Settings: Ventilator Settings, Last 8 Hours Ventilator Mode VC+ Ventilator Mode VC+ Ventilator Mode VC+ Ventilator Mode VC+ Ventilator Mode VC+ Ventilator Mode VC+ Ventilator Mode VC+ Ventilator Mode VC+ Ventilator Mode VC+ Ventilator Mode VC+ Ventilator Mode VC+ Ventilator Mode VC+ Ventilator Tidal Volume 450 Setting Ventilator Tidal Volume 450 Setting Ventilator Tidal Volume 450 Setting Ventilator Tidal Volume 450 Setting Ventilator Tidal Volume 450 Setting Ventilator Tidal Volume 450 Setting Ventilator Tidal Volume 450 Setting Ventilator Tidal Volume 450 Setting Ventilator Tidal Volume 450 Setting Ventilator Tidal Volume 450 Setting Ventilator Tidal Volume 450 Setting Ventilator Tidal Volume 450 Setting Ventilator Respiratory Rate 14 Setting Ventilator Respiratory Rate 14 Setting Ventilator Respiratory Rate 14 Setting Ventilator Respiratory Rate 14 Setting Ventilator Respiratory Rate 14 Setting Ventilator Respiratory Rate 20 Setting Ventilator Respiratory Rate 20 Setting Ventilator Respiratory Rate 20 Setting Ventilator Respiratory Rate 20 Setting Ventilator Respiratory Rate 20 Setting Ventilator Respiratory Rate 20 Setting Ventilator Respiratory Rate 20 Setting Actual Respiratory Rate 15 Actual Respiratory Rate 17 Actual Respiratory Rate 15 Actual Respiratory Rate 17 Actual Respiratory Rate 18 Actual Respiratory Rate 20 Actual Respiratory Rate 20 Actual Respiratory Rate 20 Actual Respiratory Rate 20 Actual Respiratory Rate 20 Actual Respiratory Rate 20 Positive End Expiratory 5 Pressure Positive End Expiratory 5 Pressure Positive End Expiratory 5 Pressure Positive End Expiratory 5 Pressure Positive End Expiratory 5 Pressure Positive End Expiratory 5 Pressure Positive End Expiratory 5 Pressure Positive End Expiratory 5 Pressure Positive End Expiratory 5 Pressure Positive End Expiratory 5 Pressure Positive End Expiratory 5 Pressure Positive End Expiratory 5 Pressure Peak Inspiratory Airway 22 Pressure Peak Inspiratory Airway 23 Pressure Peak Inspiratory Airway 23 Pressure Peak Inspiratory Airway 23 Pressure Peak Inspiratory Airway 23 Pressure Peak Inspiratory Airway 23 Pressure Peak Inspiratory Airway 22 Pressure Peak Inspiratory Airway 23 Pressure Peak Inspiratory Airway 22 Pressure Peak Inspiratory Airway 22 Pressure Peak Inspiratory Airway 23 Pressure Results - Laboratory Findings CBC and BMP: 11/17/16 03:43 11/17/16 03:43 ABG ABG pH 7.48 pH Units (7.32-7.45) H D 11/17/16 04:49 ABG pCO2 68 mmHg (35-45) H D 11/17/16 04:49 ABG pO2 62 mmHg (85-104) L 11/17/16 04:49 ABG O2 Saturation 93 % (95-98) L 11/17/16 04:49 Abnormal lab findings: Abnormal lab results Lymphocytes # 0.2 K/mcL (0.6-4.6) L 11/17/16 03:43 ABG pH 7.48 pH Units (7.32-7.45) H D 11/17/16 04:49 ABG pCO2 68 mmHg (35-45) H D 11/17/16 04:49 ABG pO2 62 mmHg (85-104) L 11/17/16 04:49 ABG HCO3 50.6 mEQ/L (21-27) H 11/17/16 04:49 ABG Total CO2 52.7 mEq/L (20-26) H 11/17/16 04:49 ABG O2 Saturation 93 % (95-98) L 11/17/16 04:49 ABG Base Excess 22.9 mEq/L (-2.0 to 3.0) H 11/17/16 04:49 Chloride 94 mEq/L (98-109) L 11/17/16 03:43 Carbon Dioxide 37 mEq/L (19-29) H 11/17/16 03:43 BUN 28 mg/dL (7-20) H 11/17/16 03:43 BUN/Creatinine Ratio 32 (6-26) H 11/17/16 03:43 Glucose 145 mg/dL (70-99) H 11/17/16 03:43 POC Glucose 156 (58-89) H 11/17/16 05:47 Calculated Osmolality 302 (280-300) H 11/17/16 03:43 B-Natriuretic Peptide 106 pg/mL (0-100) H 11/16/16 16:09 Albumin 3.0 g/dL (3.5-5.0) L 11/17/16 03:43 Albumin/Globulin Ratio 0.9 (1.1-2.2) L 11/17/16 03:43 Urine Clarity Cloudy (Clear) A 11/16/16 23:55 Urine Protein >=300 mg/dL (Neg-Trace) H 11/16/16 23:55 Urine Glucose (UA) 100 mg/dL (Normal) H 11/16/16 23:55 Urine Blood Moderate (Negative) H 11/16/16 23:55 Urine Bilirubin Moderate (Negative) H 11/16/16 23:55 Urine Microscopic RBC 3-5 per hpf (0-3) H 11/16/16 23:55 Urine Microscopic WBC 5-15 per hpf (0-3) H 11/16/16 23:55 Ur Squamous Epith Cells Many per lpf (None-Few) H 11/16/16 23:55 Urine Bacteria Many per hpf (None-Few) H 11/16/16 23:55 Hyaline Casts Many per lpf (None-Few) H 11/16/16 23:55 Granular Casts Few per lpf (None Seen) H 11/16/16 23:55 WBC Casts Moderate per lpf (None Seen) H 11/16/16 23:55 Urine Mucus Many (Few) H 11/16/16 23:55 Urine Yeast Few per hpf (None Seen) H 11/16/16 23:55 Ur Culture Indicated? YES (NO) A 11/16/16 23:55 - Microbiology Findings Microbiology Findings: Microbiology, Last 48 Hours 11/17/16 00:05 Sputum Culture - Preliminary Sputum - Diagnostic Findings Chest x-ray: report reviewed (Pulmonary edema and emphysema) - Clinical Findings Intake & Output: Intake & Output 11/16/16 11/17/16 11/17/16 23:59 07:59 15:59 Intake Total 183 / 183 Output Total 580 / 580 Balance -397 / -397 Weight 85.4 kg 85.4 kg Consult Discharge Plan - Plan Referrals: NO,PCP [Primary Care Provider] - <Felipe Putnam - Last Filed: 11/17/16 16:39> All Systems: A 10-system review of systems was performed and is negative for pertinent findings except as documented above in the HPI. Physical Examination Vital Signs: Vital Signs, Last 4 Hours Temp Pulse Resp BP Pulse Ox 11/17/16 15:19 97.9 F 11/17/16 15:00 75 16 147/78 91 L 11/17/16 14:17 14 144/85 93 L 11/17/16 14:00 66 14 144/85 93 L 11/17/16 13:00 65 14 135/70 92 L Ventilator Settings Ventilator Settings: Ventilator Settings, Last 8 Hours Ventilator Mode VC+ Ventilator Mode VC+ Ventilator Mode VC+ Ventilator Mode VC+ Ventilator Mode VC+ Ventilator Mode VC+ Ventilator Mode VC+ Ventilator Mode VC+ Ventilator Mode VC+ Ventilator Mode VC+ Ventilator Tidal Volume 450 Setting Ventilator Tidal Volume 450 Setting Ventilator Tidal Volume 450 Setting Ventilator Tidal Volume 450 Setting Ventilator Tidal Volume 450 Setting Ventilator Tidal Volume 450 Setting Ventilator Tidal Volume 450 Setting Ventilator Tidal Volume 450 Setting Ventilator Tidal Volume 450 Setting Ventilator Tidal Volume 450 Setting Ventilator Respiratory Rate 14 Setting Ventilator Respiratory Rate 14 Setting Ventilator Respiratory Rate 14 Setting Ventilator Respiratory Rate 14 Setting Ventilator Respiratory Rate 14 Setting Ventilator Respiratory Rate 14 Setting Ventilator Respiratory Rate 14 Setting Ventilator Respiratory Rate 14 Setting Ventilator Respiratory Rate 14 Setting Ventilator Respiratory Rate 14 Setting Actual Respiratory Rate 16 Actual Respiratory Rate 16 Actual Respiratory Rate 16 Actual Respiratory Rate 14 Actual Respiratory Rate 14 Actual Respiratory Rate 16 Actual Respiratory Rate 14 Actual Respiratory Rate 16 Actual Respiratory Rate 14 Actual Respiratory Rate 20 Positive End Expiratory 5 Pressure Positive End Expiratory 5 Pressure Positive End Expiratory 5 Pressure Positive End Expiratory 5 Pressure Positive End Expiratory 5 Pressure Positive End Expiratory 5 Pressure Positive End Expiratory 5 Pressure Positive End Expiratory 5 Pressure Positive End Expiratory 5 Pressure Positive End Expiratory 5 Pressure Peak Inspiratory Airway 17 Pressure Peak Inspiratory Airway 24 Pressure Peak Inspiratory Airway 21 Pressure Peak Inspiratory Airway 24 Pressure Peak Inspiratory Airway 23 Pressure Peak Inspiratory Airway 21 Pressure Peak Inspiratory Airway 22 Pressure Peak Inspiratory Airway 21 Pressure Peak Inspiratory Airway 21 Pressure Peak Inspiratory Airway 22 Pressure Results - Laboratory Findings CBC and BMP: 11/17/16 15:28 11/17/16 15:28 ABG ABG pH 7.48 pH Units (7.32-7.45) H D 11/17/16 04:49 ABG pCO2 68 mmHg (35-45) H D 11/17/16 04:49 ABG pO2 62 mmHg (85-104) L 11/17/16 04:49 ABG O2 Saturation 93 % (95-98) L 11/17/16 04:49 Abnormal lab findings: Abnormal lab results MCHC 31.1 g/dL (31.6-35.5) L 11/17/16 15:28 Lymphocytes # 0.3 K/mcL (0.6-4.6) L 11/17/16 15:28 ABG pH 7.48 pH Units (7.32-7.45) H D 11/17/16 04:49 ABG pCO2 68 mmHg (35-45) H D 11/17/16 04:49 ABG pO2 62 mmHg (85-104) L 11/17/16 04:49 ABG HCO3 50.6 mEQ/L (21-27) H 11/17/16 04:49 ABG Total CO2 52.7 mEq/L (20-26) H 11/17/16 04:49 ABG O2 Saturation 93 % (95-98) L 11/17/16 04:49 ABG Base Excess 22.9 mEq/L (-2.0 to 3.0) H 11/17/16 04:49 Chloride 92 mEq/L (98-109) L 11/17/16 15:28 Carbon Dioxide 36 mEq/L (19-29) H 11/17/16 15:28 BUN 41 mg/dL (7-20) H D 11/17/16 15:28 Creatinine 1.24 mg/dL (0.57-1.11) H 11/17/16 15:28 Est GFR ( Amer) 52 (> 60) L 11/17/16 15:28 Est GFR (Non-Af Amer) 43 (> 60) L 11/17/16 15:28 BUN/Creatinine Ratio 33 (6-26) H 11/17/16 15:28 Glucose 181 mg/dL (70-99) H 11/17/16 15:28 POC Glucose 198 (58-89) H 11/17/16 12:11 Calculated Osmolality 305 (280-300) H 11/17/16 15:28 Ionized Calcium 1.09 mmol/L (1.15-1.35) L 11/17/16 15:28 B-Natriuretic Peptide 106 pg/mL (0-100) H 11/16/16 16:09 Albumin 3.0 g/dL (3.5-5.0) L 11/17/16 03:43 Albumin/Globulin Ratio 0.9 (1.1-2.2) L 11/17/16 03:43 Urine Clarity Cloudy (Clear) A 11/16/16 23:55 Urine Protein >=300 mg/dL (Neg-Trace) H 11/16/16 23:55 Urine Glucose (UA) 100 mg/dL (Normal) H 11/16/16 23:55 Urine Blood Moderate (Negative) H 11/16/16 23:55 Urine Bilirubin Moderate (Negative) H 11/16/16 23:55 Urine Microscopic RBC 3-5 per hpf (0-3) H 11/16/16 23:55 Urine Microscopic WBC 5-15 per hpf (0-3) H 11/16/16 23:55 Ur Squamous Epith Cells Many per lpf (None-Few) H 11/16/16 23:55 Urine Bacteria Many per hpf (None-Few) H 11/16/16 23:55 Hyaline Casts Many per lpf (None-Few) H 11/16/16 23:55 Granular Casts Few per lpf (None Seen) H 11/16/16 23:55 WBC Casts Moderate per lpf (None Seen) H 11/16/16 23:55 Urine Mucus Many (Few) H 11/16/16 23:55 Urine Yeast Few per hpf (None Seen) H 11/16/16 23:55 Ur Culture Indicated? YES (NO) A 11/16/16 23:55 - Microbiology Findings Microbiology Findings: Microbiology, Last 48 Hours 11/17/16 00:05 Sputum Culture - Preliminary Sputum - Clinical Findings Intake & Output: Intake & Output 11/17/16 11/17/16 11/17/16 07:59 15:59 23:59 Intake Total 183 / 183 200 / 200 Output Total 580 / 580 150 / 150 Balance -397 / -397 50 / 50 Weight 85.4 kg - Attending Attestation I examined this patient and my medical decision-making was reviewed with the DIGITAL BUSINESS ANALYST/PA/Advanced Practice Nurse/Resident Physician. I agree with the documented findings, disposition and treatment plan as described except to the extent set forth below. Patient seen and examined. Labs, radiology, chart personally reviewed. Agree with resident's history and physical, assessment, plan with following comments: CHEESE SPECIALIST: Patient sedated and respond to painful stimuli. Pulmonary: Acceptable oxygenation and ventilation. Patient had acute/chronic respiratory acidosis and then rebound metabolic alkalosis. Changed vent setting and need to lower her minute ventilation. There is no evidence of PEEPi and will increase systemic steroid dose. I'm hoping patient will be more stable tomorrow to do SBT and can be extubated to BiPAP. Reviewing CT chest, with significant emphysema that patient have poor prognosis especially with smoking history. Cardiovascular: stable GI: Nutrition per dietary and GI prophylaxis per routine Heme: DVT prophylaxis per routine ID: Continue antibiotics and plan to de-escalation Renal; urine out put and renal funtion reviewed Endorcine: blood glucose is monitored Lines: all lines checked and no evidence of infections Skin: skin care to prevent pressure ulcers per nursing routine care I spent 35 min of Critical Care time with this patient. It involved decision making of high complexity to assess, manipulate, and support vital organ system failure and/or to prevent further life threatening deterioration of the patient' s condition. The time involved in the performance of separately reportable procedures was not counted toward critical care time.
[2016-11-17] MEDS: FentaNYL (PF) 1,000 MCG in 0.9 % Sodium Chloride 80 ML IVC SCH (09:34)
[2016-11-17] MEDS: Pantoprazole 40 MG VIAL IVP SCH (09:41)
[2016-11-17] MEDS: Budesonide/Formoterol 160/4.5 MDI IH SCH ×2 (10:21→21:01)
--- NOTE | 2016-11-17 13:10 | ECHO - Doppler Report ---
Echocardiogram Name: Lilly Jhaveri Date of Study: 11/17/2016 Date: 1945 Ht: 65.0 in Medical Record#: [id number] Age: 71 Wt: 188.0 lb Gender: Female BSA: 1.93 Order #: [id number] Location: [facility] Room #: IC4 Reading Physician: Allan Velazco DO, CHRIS, EMMANUEL JONES Sales Agent Pest Control Service: Amita Aviles Ordering Physician: Bhavesh Palma MD Primary Physician: None Indications: Congestive heart failure, Pulmonary edema Impressions: LVEF 65%. Normal LV chamber size and function. Mild concentric left ventricular hypertrophy. Mild left ventricular diastolic dysfunction. Normal right ventricular structure and function. Mild tricuspid regurgitation. Moderate pulmonary hypertension. Estimated RVSP is 47 mmHg. Left Ventricular Wall Motion: Rest Echo Findings All wall segments showed normal motion. Findings: Study Quality * Technically adequate exam. ECG Findings * Normal sinus rhythm. Left Ventricle * LVEF 65%. * Normal LV chamber size and function. * Mild concentric left ventricular hypertrophy. * Mild left ventricular diastolic dysfunction. Right Ventricle * Normal right ventricular structure and function. Left Atrium * Mildly dilated left atrium. Right Atrium * Normal right atrial size. Aortic Valve * Trileaflet aortic valve. * Mildly sclerotic aortic valve leaflets. * No aortic regurgitation. * No aortic stenosis. Mitral Valve * Mild posterior mitral annular calcification. * No mitral regurgitation. * No mitral stenosis. Tricuspid Valve * Normal tricuspid valve structure. * Mild tricuspid regurgitation. * Moderate pulmonary hypertension. * Estimated RVSP is 47 mmHg. * Estimated RA pressure is 5 mmHg. Pulmonic Valve * Normal pulmonic valve structure and function. * Trace pulmonic regurgitation. Aorta * Normally sized aortic root. Pericardium * The pericardium appears normal. IVC * Normal IVC dimensions and inspiratory collapse. Pulmonary Artery * Normal visualized portions of the main pulmonary artery. History 12/18/14 a Previous Echo was performed. Measurements: BP: 155/ 91 2D Normal Values RVIDd: 3.00 cm <2.7 cm IVSd: 1.30 cm 0.6 - 1.0 cm LVIDd: 4.60 cm 3.7 - 5.6 cm LVPWd: 1.30 cm 0.6 - 1.1 cm LVIDs: 3.60 cm 1.5 - 3.6 cm AO: 2.30 cm < 4.0 cm LA: 3.70 cm 2.0 - 4.0cm %FS: 21.70 cm >25 % LA volume: 39 Mitral Valve Peak E:.43 m/sec Peak A:.56 m/sec E/A Ratio:0.8 Peak E' Lat Andrea:3.8 cm/s Peak E' Med Andrea:4 cm/s E/E' Lat Ratio:11.3 E/E' Med Ratio:10.7 Tricuspid Valve TV Regurg Peak Grad: 43.00mmHg TV Regurg Peak Andrea: 3.26m/sec Updated by Allan Velazco DO, FACMinor, KAREN, EMMANUEL on 11/17/2016 1:04:17 PM electronically signed on 11/17/2016 1:04:34 PM with status of Final Wall Motion Archer: 1=Normal, 2=Hypokinesis, 3=Akinesis, 4=Dyskinesis, 5=Aneurysmal, 6=Hyperkinetic, X=Not Visualized (Blank)=Missing
--- NOTE | 2016-11-17 13:16 | Electrocardiograph Report ---
[address] [place] [address] Test Date: 2016-11-16 Pat Name: Lilly Jhaveri Department: 103 Room: [facility] Gender: F Seater Grinder: : 1945 Requested By: Roman Bray Order Number: [id number] Reading MD: Cas Rowley MD Measurements Intervals [place] Rate: 132 P: RI: 0 QRS: 0 QRSD: 0 T: 0 QT: 0 QTc: 0 Interpretive Statements SINUS TACHYCARDIA ANTERIOR VT, AGE UNDETERMINED BASELINE ARTIFACT Electronically Signed On 11-17-2016 13:14:34 EDT by Cas Rowley MD
[2016-11-17] MEDS: Gabapentin 100 MG CAPSULE PO SCH ×3 (13:44→20:16)
[2016-11-17] MEDS ORDERED: Sodium Phosphate 30 MMOL in D5% in Water 100 ML IVPB PRN (14:47)
[2016-11-17] MEDS ORDERED: Magnesium Sulfate 2 GM in D5% in Water 100 ML IVPB PRN (14:47)
--- NOTE | 2016-11-17 15:33 | Electrocardiograph Report ---
[address] [place] [address] Test Date: 2016-11-16 Pat Name: Lilly Jhaveri Department: 103 Room: 04 Gender: F Fly Fishing Guide: : 1945 Requested By: Annamarie Ying Order Number: [id number] Reading MD: Cas Rowley MD Measurements Intervals [employer] Rate: 120 P: AR: 0 QRS: -27 QRSD: 85 T: 84 QT: 288 QTc: 360 Interpretive Statements SINUS TACHYCARDIA LEFT ATRIAL ABNORMALITY ANTERIOR MYOCARDIAL INFARCTION, OF INDETERMINATE AGE Electronically Signed On 11-17-2016 15:31:55 EDT by Cas Rowley MD
[2016-11-17 15:38] LABS: Hematocrit 39.9 % (35.3-44.9); Hemoglobin 12.4 g/dL (11.5-15.4); Immature Granulocytes % 0.4 % (0-4); Lymphocytes # 0.3 K/mcL (0.6-4.6); Lymphocytes % 3.1 %; Mean Corpuscular HGB Conc 31.1 g/dL (31.6-35.5); Mean Corpuscular Hemoglobin 28.9 pg (28.0-33.3); Monocytes # 0.5 K/mcL (0.0-1.3); Monocytes % 6.3 %; Neutrophils # 7.5 K/mcL (1.6-8.9); Platelet Count 228 K/mcL (140-400); Red Blood Count 4.29 M/mcL (3.82-4.97); Red Cell Distribution Width 13.4 % (11.5-14.5); Segmented Neutrophils % 90.2 %
[2016-11-17 15:41] LABS: Ionized Calcium 1.09 mmol/L (1.15-1.35)
[2016-11-17 15:47] LABS: Calcium 8.8 mg/dL (8.6-10.8); Magnesium 1.6 mg/dL (1.6-2.6); Potassium 3.7 mEq/L (3.5-4.5)
[2016-11-17] MEDS ORDERED: Potassium Chloride Elixir 20 MEQ/15 ML UDC GTUBE PRN (16:40)
[2016-11-17] MEDS: Calcium Gluconate 1,000 MG in D5% in Water 100 ML IVPB PRN (18:16)
[2016-11-17] MEDS: Levofloxacin 750 MG/150 ML 750 MG/150 ML BAG IVPB SCH (20:15)
[2016-11-18] MEDS: *HR* Heparin 5,000 UNIT/ML VIAL SQ SCH ×4 (00:33→23:58)
[2016-11-18] MEDS: Insulin LISPRO 300 UNITS/3 ML VIAL SQ SCH ×4 (00:33→16:49)
[2016-11-18] MEDS: methylPREDNISolone 125 MG/2 ML VIAL IVP SCH ×5 (00:33→23:58)
[2016-11-18] MEDS: Lacri-Lube 3.5 GM TUBE BOTH EYES SCH ×4 (00:34→11:39)
[2016-11-18 01:11] LABS: Adenovirus Not Detected (Not Detect); Bordetella Pertussis Not Detected (Not Detect); Chlamydophila pneumoniae Not Detected (Not Detect); Coronavirus 229E Not Detected (Not Detect); Coronavirus HKU1 Not Detected (Not Detect); Coronavirus NL63 Not Detected (Not Detect); Coronavirus OC43 Not Detected (Not Detect); Human Metapneumovirus Not Detected (Not Detect); Human Rhinovirus/Enterovirus Not Detected (Not Detect); Influenza A Subtype 2009 H1 Not Detected (Not Detect); Influenza A Untypeable Not Detected (Not Detect); Influenza B Not Detected (Not Detect); Mycoplasma pneumoniae Not Detected (Not Detect); Parainfluenza Virus 1 Not Detected (Not Detect); Parainfluenza Virus 2 Not Detected (Not Detect); Parainfluenza Virus 3 Not Detected (Not Detect); Parainfluenza Virus 4 Not Detected (Not Detect); Respiratory Syncytial Virus Not Detected (Not Detect)
[2016-11-18] MEDS: Ipratropium/Albuterol Neb 3 ML IH SCH ×6 (03:22→23:37)
[2016-11-18 04:27] LABS: Hemoglobin 11.4 g/dL (11.5-15.4); Immature Granulocytes % 0.7 % (0-4); Lymphocytes # 0.2 K/mcL (0.6-4.6); Lymphocytes % 2.6 %; Mean Corpuscular HGB Conc 30.8 g/dL (31.6-35.5); Mean Corpuscular Hemoglobin 28.9 pg (28.0-33.3); Mean Corpuscular Volume 93.9 fL (83.0-100.0); Mean Platelet Volume 10.2 fL (9.4-12.4); Monocytes # 0.3 K/mcL (0.0-1.3); Monocytes % 3.5 %; Platelet Count 210 K/mcL (140-400); Red Blood Count 3.94 M/mcL (3.82-4.97); Red Cell Distribution Width 13.3 % (11.5-14.5); Segmented Neutrophils % 93.2 %
[2016-11-18 04:34] LABS: ABG HCO3 46.9 mEQ/L (21-27); ABG Oxygen Saturation 91 % (95-98); ABG PH 7.33 pH Units (7.32-7.45); ABG PO2 65 mmHg (85-104); ABG TCO2 49.6 mEq/L (20-26)
[2016-11-18 04:40] LABS: Blood Gas FiO2 60 %
[2016-11-18 04:41] LABS: ABG PCO2 89 mmHg (35-45)
[2016-11-18 04:51] LABS: Ionized Calcium 1.11 mmol/L (1.15-1.35)
[2016-11-18 05:00] LABS: Calcium 8.7 mg/dL (8.6-10.8); Magnesium 2.4 mg/dL (1.6-2.6); Phosphorous 4.4 mg/dL (2.3-4.7)
[2016-11-18] MEDS: FentaNYL (PF) 1,000 MCG in 0.9 % Sodium Chloride 80 ML IVC SCH (06:03)
--- NOTE | 2016-11-18 06:48 | Venous Imaging Report ---
LE Venous Duplex Patient Name:Lilly Jhaveri Order Number:[id number] Procedure Date:11/17/2016 Date:1945ge:71 yrs Gender:Female Location:[facility] Room #: IC4 Accounting Systems Analyst:Amita Aviles Referring MD:Bhavesh Palma MD tobacco grader:None Reading MD:Chuckie Barbosa MD Secondary Indications: Impressions: Normal right lower extremity deep and superficial venous exam. Normal contralateral common femoral vein. Recommendations: After imaging the patient returned to their room. Findings Venous Duplex Results: Right: Venous imaging of the lower extremity reveals full patency and normal vessel compressibility of the right distal iliac, right common femoral, right superficial femoral, right popliteal, right posterior tibial, right peroneal, right great saphenous and right lesser saphenous. Doppler signals in the evaluated veins were normal. The right lesser saphenous vein was not assessed. Left: Venous imaging of the lower extremity reveals full patency and normal vessel compressibility of the left common femoral. Doppler signals in the evaluated veins were normal. Lower Extremity Venous Duplex Side Vein Compress Spontaneous Flow Augment Diameter (cm) Depth (cm) Right Distal Iliac Normal Yes Phasic Yes Right Common Femoral Normal Yes Phasic Yes Right Superficial Femoral Normal Yes Phasic Yes Right Popliteal Normal Yes Phasic Yes Right Posterior Tibial Normal Yes Phasic Yes Right Peroneal Normal Yes Phasic Yes Right Great Saphenous Normal Yes Phasic Yes Right Lesser Saphenous Normal Yes Phasic Yes Left Common Femoral Normal Yes Phasic Yes Updated by Chuckie Barbosa MD on 11/18/2016 6:41:17 AM electronically signed on 11/18/2016 6:42:05 AM with status of Final
[2016-11-18] MEDS: Budesonide/Formoterol 160/4.5 MDI IH SCH ×2 (07:38→20:10)
[2016-11-18] MEDS: Pantoprazole 40 MG VIAL IVP SCH (08:23)
[2016-11-18] MEDS: Chlorhexidine Rinse 15 ML MOUTHWASH MM SCH (08:23)
--- NOTE | 2016-11-18 08:32 | Pulmonology Progress Note ---
<Arthur Handley - Last Filed: 11/18/16 11:08> Date of Encounter: 11/18/16 Time of Encounter: 08:30 Assessment and Plan (1) Acute exacerbation of chronic obstructive airways disease Current Visit: Yes Status: Acute 71-year-old female with a history of COPD on 2.5 L home oxygen presented with chief complaint of shortness of breath worsening over the past 3 days. Patient was somnolent on presentation. Initial ABG showed respiratory acidosis and hypercapnia with hypoxia. Patient was placed on BiPAP and showed minimal improvement with repeat ABG. She was moved to the floor where hospitalist noticed patient was somnolent, unresponsive to verbal stimuli. Third ABG ordered on the patient showed no improvement and her doctor acidosis and she was intubated and moved to the ICU. Checks her x-ray showed worsening left lower lobe atelectasis, emphysema and pulmonary edema. 2nd to infectious etiology, new onset CHF unknown diastolic or systolic, undiagnosed sleep apnea. -Patient is extubated on BIPAP -Lung exam shows diminished breath sounds throughout -ABG shows respiratory acidosis with metabolic alkalosis: PH: 7.33, PCO2 89, PO2 65, bicarbonate 49.6 patient most hayes has chronic hypercapnia and lives at PCO2 90 -Repeat ABG, CBC, BMP in the morning -Continue Symbicort, nebulizer treatments, Solu-Medrol, Levaquin (3) Possible CAP, unknown bacterial or viral in origin -Respiratory panel negative -urine antigens pending -sputum and blood cultures pending preliminarily negative -influenza screen pending Possible diastolic CHF -echocardiogram shows LVEF 65% with mild diastolic dysfunction and mild tricuspid regurg, moderate pulmonary hypertension -lasix was d/c due to worsening kidney function. SCr 1.55. -strict I/O -troponin WNL Sleep apnea -patient will need outpatient sleep study -RF obesity, Hypertension, tobacco abuse DVT/PE ruled out wells score for DVT 0 Wells score for PE 1.5 TL Lower extremity doppler negative (2) Acute respiratory failure with hypoxia and hypercapnia Current Visit: Yes Status: Acute (3) DOMINIK (acute kidney injury) Current Visit: Yes Status: Acute Patient has developed DOMINIK in the past 48 hours. Scr 1.55 lasix, and lisinopril on hold Urinalysis shows protein and blood, granular and hayline casts possible ATN, gomerulonephritis BUN:creatinine ratio 35: pre-renal cause urine culture pending. will obtain renal US, urine protein to creatinine ratio, urine urea, urine osmolaity Start 0.9% NS 75cc/hr. (4) Pulmonary edema Current Visit: Yes Status: Acute 2nd to diastolic CHF. unknown diastolic or systolic. -Chest x-ray showed cardiomegaly and bilateral pulmonary edema. -last echo in 2014 showed LVEF of 65% with no wall motion or valvular abnormalities -Echocardiogram results as stated above. -Strict I's and O's cumulative +650 -hold lasix due to DOMINIK Scr 1.55 -Continue Rivas catheter Qualifiers: Chronicity: acute Qualified Code(s): J81.0 - Acute pulmonary edema (5) Hx of rheumatoid arthritis Current Visit: Yes Status: Chronic hx of rheumatoid arthritis being followed by Dr. Romo. -Will hold methotrexate since concern for pneumonia as cause for acute on chronic respiratory failure. CBC in AM (6) Hx of major depression Current Visit: Yes Status: Chronic hx of major depression continue lexapro start home buporion (7) History of CVA in adulthood Current Visit: Yes Status: Chronic Patient had lacunar infarct 2014 with symptoms of left sided weakness. -will continue home statin, and aspirin 81mg. (8) Diabetes mellitus Current Visit: Yes Status: Chronic Controlled. Last hemoglobin A1c 5.9 -At home patient is on metformin and Linagliptin. -currently on SSI with gluclsoe levels between 150-200 -will start basal insulin dose. Qualifiers: Diabetes mellitus type: type 2 Diabetes mellitus complication status: with unspecified complications Diabetes mellitus crayon sorting machine feeder insulin use: without crayon sorting machine feeder use Qualified Code(s): E11.8 - Type 2 diabetes mellitus with unspecified complications (9) Hypertension Current Visit: Yes Status: Chronic Initially patient presented with hypertension with systolic of 203. -Since being intubated and sedated patient's blood pressures under control, now extubated -Continue home amlodipine, atenolol. -lisinopril/losartan d/c due to dominik. Qualifiers: Hypertension type: essential hypertension Qualified Code(s): I10 - Essential (primary) hypertension (10) DVT prophylaxis Current Visit: Yes Status: Acute continue heparin (11) History of hypothyroidism Current Visit: Yes Status: Chronic TSH within normal limits continue home dose of levothyroxine. Subjective Principal diagnosis: Acute on chronic respiratory failure Interval history: Patient is morning was on CPAP trial and was successfully extubated. Currently she is on BiPAP. She denies any problems. Denies chest pain, abdominal pain, nausea, lower extremity pain and swelling. Objective PUL Vital signs: Last Vital Signs Temp 98.3 F 11/18/16 08:19 Pulse 70 11/18/16 07:00 Resp 28 11/18/16 08:15 BP 150/83 11/18/16 07:00 Pulse Ox 96 11/18/16 08:15 General appearance: no acute distress, alert Eyes: nonicteric ENT: oropharynx moist Mallampati (class): 2 Neck: no lymphadenopathy Effort: mildly labored Auscultation: bilateral: diminished breath sounds Cardiovascular: regular rate and rhythm Gastrointestinal: normoactive bowel sounds, soft, non-tender, non-distended Integumentary: other (dry scaley skin on foot with great toe nail deformity. ) Extremities: no cyanosis, no edema, no clubbing, pink and warm, pulses normal Musculoskeletal: no deformities normal mental status mood appropriate Ventilator Settings Ventilator Settings: Ventilator Settings, Last 8 Hours Ventilator Mode CPAP Ventilator Mode CPAP Ventilator Mode VC+ Ventilator Mode VC+ Ventilator Mode VC+ Ventilator Mode VC+ Ventilator Mode VC+ Ventilator Mode A/C Ventilator Mode VC+ Ventilator Mode VC+ Ventilator Mode VC+ Ventilator Tidal Volume 450 Setting Ventilator Tidal Volume 450 Setting Ventilator Tidal Volume 450 Setting Ventilator Tidal Volume 450 Setting Ventilator Tidal Volume 450 Setting Ventilator Tidal Volume 450 Setting Ventilator Tidal Volume 450 Setting Ventilator Tidal Volume 450 Setting Ventilator Tidal Volume 450 Setting Ventilator Tidal Volume 450 Setting Ventilator Respiratory Rate 14 Setting Ventilator Respiratory Rate 14 Setting Ventilator Respiratory Rate 14 Setting Ventilator Respiratory Rate 14 Setting Ventilator Respiratory Rate 14 Setting Ventilator Respiratory Rate 14 Setting Ventilator Respiratory Rate 14 Setting Ventilator Respiratory Rate 14 Setting Ventilator Respiratory Rate 14 Setting Actual Respiratory Rate 33 Actual Respiratory Rate 30 Actual Respiratory Rate 16 Actual Respiratory Rate 18 Actual Respiratory Rate 14 Actual Respiratory Rate 15 Actual Respiratory Rate 14 Actual Respiratory Rate 14 Actual Respiratory Rate 14 Actual Respiratory Rate 14 Positive End Expiratory 5 Pressure Positive End Expiratory 5 Pressure Positive End Expiratory 5 Pressure Positive End Expiratory 5 Pressure Positive End Expiratory 5 Pressure Positive End Expiratory 5 Pressure Positive End Expiratory 5 Pressure Positive End Expiratory 5 Pressure Positive End Expiratory 5 Pressure Positive End Expiratory 5 Pressure Positive End Expiratory 5 Pressure Peak Inspiratory Airway 16 Pressure Peak Inspiratory Airway 15 Pressure Peak Inspiratory Airway 20 Pressure Peak Inspiratory Airway 23 Pressure Peak Inspiratory Airway 23 Pressure Peak Inspiratory Airway 22 Pressure Peak Inspiratory Airway 26 Pressure Peak Inspiratory Airway 22 Pressure Peak Inspiratory Airway 24 Pressure Peak Inspiratory Airway 22 Pressure Results - Laboratory Findings CBC and BMP: 11/18/16 03:39 11/18/16 03:39 ABG ABG pH 7.33 pH Units (7.32-7.45) 11/18/16 04:25 ABG pCO2 89 mmHg (35-45) H* 11/18/16 04:25 ABG pO2 65 mmHg (85-104) L 11/18/16 04:25 ABG O2 Saturation 91 % (95-98) L 11/18/16 04:25 Abnormal lab findings: Abnormal lab results Hgb 11.4 g/dL (11.5-15.4) L 11/18/16 03:39 MCHC 30.8 g/dL (31.6-35.5) L 11/18/16 03:39 Lymphocytes # 0.2 K/mcL (0.6-4.6) L 11/18/16 03:39 ABG pCO2 89 mmHg (35-45) H* 11/18/16 04:25 ABG pO2 65 mmHg (85-104) L 11/18/16 04:25 ABG HCO3 46.9 mEQ/L (21-27) H 11/18/16 04:25 ABG Total CO2 49.6 mEq/L (20-26) H 11/18/16 04:25 ABG O2 Saturation 91 % (95-98) L 11/18/16 04:25 ABG Base Excess 17.0 mEq/L (-2.0 to 3.0) H 11/18/16 04:25 Chloride 92 mEq/L (98-109) L 11/18/16 03:39 Carbon Dioxide 38 mEq/L (19-29) H 11/18/16 03:39 BUN 55 mg/dL (7-20) H D 11/18/16 03:39 Creatinine 1.55 mg/dL (0.57-1.11) H 11/18/16 03:39 Est GFR ( Amer) 40 (> 60) L 11/18/16 03:39 Est GFR (Non-Af Amer) 33 (> 60) L 11/18/16 03:39 BUN/Creatinine Ratio 35 (6-26) H 11/18/16 03:39 Glucose 218 mg/dL (70-99) H 11/18/16 03:39 POC Glucose 273 (58-89) H 11/18/16 00:14 Calculated Osmolality 308 (280-300) H 11/18/16 03:39 Ionized Calcium 1.11 mmol/L (1.15-1.35) L 11/18/16 03:39 B-Natriuretic Peptide 106 pg/mL (0-100) H 11/16/16 16:09 Albumin 3.0 g/dL (3.5-5.0) L 11/17/16 03:43 Albumin/Globulin Ratio 0.9 (1.1-2.2) L 11/17/16 03:43 Urine Clarity Cloudy (Clear) A 11/16/16 23:55 Urine Protein >=300 mg/dL (Neg-Trace) H 11/16/16 23:55 Urine Glucose (UA) 100 mg/dL (Normal) H 11/16/16 23:55 Urine Blood Moderate (Negative) H 11/16/16 23:55 Urine Bilirubin Moderate (Negative) H 11/16/16 23:55 Urine Microscopic RBC 3-5 per hpf (0-3) H 11/16/16 23:55 Urine Microscopic WBC 5-15 per hpf (0-3) H 11/16/16 23:55 Ur Squamous Epith Cells Many per lpf (None-Few) H 11/16/16 23:55 Urine Bacteria Many per hpf (None-Few) H 11/16/16 23:55 Hyaline Casts Many per lpf (None-Few) H 11/16/16 23:55 Granular Casts Few per lpf (None Seen) H 11/16/16 23:55 WBC Casts Moderate per lpf (None Seen) H 11/16/16 23:55 Urine Mucus Many (Few) H 11/16/16 23:55 Urine Yeast Few per hpf (None Seen) H 11/16/16 23:55 Ur Culture Indicated? YES (NO) A 11/16/16 23:55 - Microbiology Findings Microbiology Findings: Microbiology, Last 48 Hours 11/17/16 00:05 Sputum Culture - Preliminary Sputum - Clinical Findings Intake & Output: Intake & Output 11/17/16 11/18/16 11/18/16 23:59 07:59 15:59 Intake Total 857 / 857 406 / 406 Output Total 75 / 75 150 / 150 50 / 50 Balance 782 / 782 256 / 256 -50 / -50 Weight 86 kg Consult Discharge Plan - Plan Referrals: NO,PCP [Primary Care Provider] - <Felipe Putnam - Last Filed: 11/18/16 13:56> Objective PUL Vital signs: Last Vital Signs Temp 98.2 F 11/18/16 12:15 Pulse 70 11/18/16 13:00 Resp 32 11/18/16 13:00 BP 151/80 11/18/16 13:00 Pulse Ox 91 L 11/18/16 13:00 Ventilator Settings Ventilator Settings: Ventilator Settings, Last 8 Hours Ventilator Mode CPAP Ventilator Mode CPAP Ventilator Mode VC+ Ventilator Tidal Volume 450 Setting Ventilator Tidal Volume 450 Setting Ventilator Respiratory Rate 14 Setting Actual Respiratory Rate 33 Actual Respiratory Rate 30 Actual Respiratory Rate 16 Positive End Expiratory 5 Pressure Positive End Expiratory 5 Pressure Positive End Expiratory 5 Pressure Peak Inspiratory Airway 16 Pressure Peak Inspiratory Airway 15 Pressure Peak Inspiratory Airway 20 Pressure Results - Laboratory Findings CBC and BMP: 11/18/16 03:39 11/18/16 03:39 ABG ABG pH 7.33 pH Units (7.32-7.45) 11/18/16 04:25 ABG pCO2 89 mmHg (35-45) H* 11/18/16 04:25 ABG pO2 65 mmHg (85-104) L 11/18/16 04:25 ABG O2 Saturation 91 % (95-98) L 11/18/16 04:25 Abnormal lab findings: Abnormal lab results Hgb 11.4 g/dL (11.5-15.4) L 11/18/16 03:39 MCHC 30.8 g/dL (31.6-35.5) L 11/18/16 03:39 Lymphocytes # 0.2 K/mcL (0.6-4.6) L 11/18/16 03:39 ABG pCO2 89 mmHg (35-45) H* 11/18/16 04:25 ABG pO2 65 mmHg (85-104) L 11/18/16 04:25 ABG HCO3 46.9 mEQ/L (21-27) H 11/18/16 04:25 ABG Total CO2 49.6 mEq/L (20-26) H 11/18/16 04:25 ABG O2 Saturation 91 % (95-98) L 11/18/16 04:25 ABG Base Excess 17.0 mEq/L (-2.0 to 3.0) H 11/18/16 04:25 Chloride 92 mEq/L (98-109) L 11/18/16 03:39 Carbon Dioxide 38 mEq/L (19-29) H 11/18/16 03:39 BUN 55 mg/dL (7-20) H D 11/18/16 03:39 Creatinine 1.55 mg/dL (0.57-1.11) H 11/18/16 03:39 Est GFR ( Amer) 40 (> 60) L 11/18/16 03:39 Est GFR (Non-Af Amer) 33 (> 60) L 11/18/16 03:39 BUN/Creatinine Ratio 35 (6-26) H 11/18/16 03:39 Glucose 218 mg/dL (70-99) H 11/18/16 03:39 POC Glucose 232 (58-89) H 11/18/16 11:11 Calculated Osmolality 308 (280-300) H 11/18/16 03:39 Ionized Calcium 1.11 mmol/L (1.15-1.35) L 11/18/16 03:39 B-Natriuretic Peptide 106 pg/mL (0-100) H 11/16/16 16:09 Albumin 3.0 g/dL (3.5-5.0) L 11/17/16 03:43 Albumin/Globulin Ratio 0.9 (1.1-2.2) L 11/17/16 03:43 Urine Clarity Cloudy (Clear) A 11/16/16 23:55 Urine Protein >=300 mg/dL (Neg-Trace) H 11/16/16 23:55 Urine Glucose (UA) 100 mg/dL (Normal) H 11/16/16 23:55 Urine Blood Moderate (Negative) H 11/16/16 23:55 Urine Bilirubin Moderate (Negative) H 11/16/16 23:55 Urine Microscopic RBC 3-5 per hpf (0-3) H 11/16/16 23:55 Urine Microscopic WBC 5-15 per hpf (0-3) H 11/16/16 23:55 Ur Squamous Epith Cells Many per lpf (None-Few) H 11/16/16 23:55 Urine Bacteria Many per hpf (None-Few) H 11/16/16 23:55 Hyaline Casts Many per lpf (None-Few) H 11/16/16 23:55 Granular Casts Few per lpf (None Seen) H 11/16/16 23:55 WBC Casts Moderate per lpf (None Seen) H 11/16/16 23:55 Urine Mucus Many (Few) H 11/16/16 23:55 Urine Yeast Few per hpf (None Seen) H 11/16/16 23:55 Ur Culture Indicated? YES (NO) A 11/16/16 23:55 Protein/Creatinin Ratio 0.26 mg/mg (0-0.20) H 11/18/16 11:17 Urine Total Protein 28 mg/dL (1-14) H 11/18/16 11:17 - Microbiology Findings Microbiology Findings: Microbiology, Last 48 Hours 11/18/16 06:32 Legionella Antigen - Final Urine,Catheterized Streptococcus pneumoniae Antigen (M - Final 11/17/16 00:05 Sputum Culture - Preliminary Sputum - Clinical Findings Intake & Output: Intake & Output 11/17/16 11/18/16 11/18/16 23:59 07:59 15:59 Intake Total 857 / 857 406 / 406 Output Total 75 / 75 150 / 150 200 / 200 Balance 782 / 782 256 / 256 -200 / -200 Weight 86 kg - Attending Attestation I examined this patient and my medical decision-making was reviewed with the SUPERVISOR [employer] PROCESSING/PA/Advanced Practice Nurse/Resident Physician. I agree with the documented findings, disposition and treatment plan as described except to the extent set forth below. Patient seen and examined. Labs, radiology, chart personally reviewed. Agree with resident's history and physical, assessment, plan with following comments: BABYSITTER: Patient follows commands, Pulmonary: Acceptable oxygenation and ventilation and patient extubated to BiPAP continue current bronchodilators. Cardiovascular: stable GI: Nutrition per dietary and GI prophylaxis per routine Heme: DVT prophylaxis per routine ID: Continue antibiotics and plan to de-escalation Renal; urine out put and renal funtion reviewed Endorcine: blood glucose is monitored Lines: all lines checked and no evidence of infections Skin: skin care to prevent pressure ulcers per nursing routine care Patient remained stable then we will transfer patient to the floor
[2016-11-18] MEDS ORDERED: Potassium Chloride Elixir 20 MEQ/15 ML UDC PO PRN (08:46)
[2016-11-18] MEDS ORDERED: amLODIPine 5 MG TABLET PO SCH (08:46)
[2016-11-18] MEDS ORDERED: Aspirin 81 MG TAB.CHEW GTUBE SCH (09:00)
[2016-11-18] MEDS ORDERED: Furosemide 20 MG/2 ML VIAL IVP SCH (09:00)
[2016-11-18] MEDS: lamoTRIgine 100 MG TABLET PO SCH (11:33)
[2016-11-18] MEDS: BuPROPion SR (12 HR) 100 MG TABLET PO SCH ×2 (11:34→19:49)
[2016-11-18] MEDS: Gabapentin 100 MG CAPSULE PO SCH ×4 (11:34→19:50)
[2016-11-18] MEDS: 0.9 % Sodium Chloride 1,000 ML IVC SCH ×2 (11:37→23:59)
[2016-11-18 12:28] LABS: Protein/Creatinine Ratio,Urine 0.26 mg/mg (0-0.20)
[2016-11-18 12:29] LABS: Sodium, Urine < 20.0 mEq/L
[2016-11-18 12:58] LABS: Osmolality,Urine 573 mOsm/kg (300-1090)
[2016-11-18] MEDS ORDERED: *HR* Metoprolol 5 MG/5 ML VIAL IVP PRN (14:47)
[2016-11-18] MEDS ORDERED: amLODIPine 5 MG TABLET PO ONE (16:01)
[2016-11-18] MEDS ORDERED: Insulin LISPRO 300 UNITS/3 ML VIAL SQ SCH (21:00)
[2016-11-18] MEDS ORDERED: Insulin DETEMIR 100 UNIT/ML X5UNITS SQ SCH (21:00)
[2016-11-19 03:15] LABS: Ionized Calcium 1.09 mmol/L (1.15-1.35)
[2016-11-19 03:17] LABS: Basophils % 0.2 %; Hemoglobin 12.9 g/dL (11.5-15.4); Immature Granulocytes % 0.5 % (0-4); Lymphocytes # 0.3 K/mcL (0.6-4.6); Lymphocytes % 2.4 %; Mean Corpuscular HGB Conc 31.5 g/dL (31.6-35.5); Mean Corpuscular Hemoglobin 29.5 pg (28.0-33.3); Mean Corpuscular Volume 93.8 fL (83.0-100.0); Mean Platelet Volume 10.3 fL (9.4-12.4); Monocytes # 0.3 K/mcL (0.0-1.3); Monocytes % 3.1 %; Platelet Count 203 K/mcL (140-400); Red Blood Count 4.37 M/mcL (3.82-4.97); Red Cell Distribution Width 13.3 % (11.5-14.5); Segmented Neutrophils % 93.8 %
[2016-11-19 03:20] LABS: Magnesium 2.3 mg/dL (1.6-2.6); Phosphorous 4.2 mg/dL (2.3-4.7); Potassium 4.2 mEq/L (3.5-4.5)
[2016-11-19] MEDS: Ipratropium/Albuterol Neb 3 ML IH SCH ×5 (04:00→20:57)
[2016-11-19] MEDS: methylPREDNISolone 125 MG/2 ML VIAL IVP SCH (06:15)
[2016-11-19] MEDS: Calcium Gluconate 1,000 MG in D5% in Water 100 ML IVPB PRN (06:16)
[2016-11-19] MEDS: Budesonide/Formoterol 160/4.5 MDI IH SCH ×3 (07:40→20:57)
--- NOTE | 2016-11-19 07:48 | Pulmonology Progress Note ---
<Arthur Handley - Last Filed: 11/19/16 10:39> Date of Encounter: 11/19/16 Time of Encounter: 07:12 Assessment and Plan (1) Acute exacerbation of chronic obstructive airways disease Current Visit: Yes Status: Acute 71-year-old female with a history of COPD on 2.5 L home oxygen presented with chief complaint of shortness of breath worsening over the past 3 days. Patient was somnolent on presentation. Initial ABG showed respiratory acidosis and hypercapnia with hypoxia. Patient was placed on BiPAP and showed minimal improvement with repeat ABG. She was moved to the floor where hospitalist noticed patient was somnolent, unresponsive to verbal stimuli. Third ABG ordered on the patient showed no improvement and her doctor acidosis and she was intubated and moved to the ICU. Checks her x-ray showed worsening left lower lobe atelectasis, emphysema and pulmonary edema. 2nd to infectious etiology, new onset CHF unknown diastolic or systolic, undiagnosed sleep apnea. -Patient tolerating BIPAP will transition to high flow NC and transfer to . -Lung exam shows improved breath sounds. -Repeat CBC, BMP in the morning -Continue Symbicort, nebulizer treatments, d/c Solu-Medrol and transition to prednisone, Levaquin (4) -patient may need socially responsible investment adviser to set up biapap for outpatient use. Possible CAP, unknown bacterial or viral in origin -Respiratory panel negative -urine antigens negative -sputum and blood cultures pending preliminarily negative -influenza screen negative Possible diastolic CHF -echocardiogram shows LVEF 65% with mild diastolic dysfunction and mild tricuspid regurg, moderate pulmonary hypertension -lasix was d/c due to worsening kidney function which has improved to 1.15 d/c fluids. -strict I/O -troponin WNL Sleep apnea -patient will need outpatient sleep study -RF obesity, Hypertension, tobacco abuse DVT/PE ruled out wells score for DVT 0 Wells score for PE 1.5 TL Lower extremity doppler negative (2) Acute respiratory failure with hypoxia and hypercapnia Current Visit: Yes Status: Acute (3) DOMINIK (acute kidney injury) Current Visit: Yes Status: Acute improving. Patient has developed DOMINIK in the past 48 hours. like 2nd to ATN: Urinalysis shows protein and blood, granular and hayline casts Renal US shows parenchymal thickening lasix, and lisinopril on hold urine culture pending. d/c fluids (4) Pulmonary edema Current Visit: Yes Status: Resolved 2nd to diastolic CHF. -resolved. absent pedal edema and respiratory rales. -Chest x-ray showed cardiomegaly and bilateral pulmonary edema. -last echo in 2014 showed LVEF of 65% with no wall motion or valvular abnormalities -Echocardiogram results as stated above. -Strict I's and O's cumulative +550 -d/c Rivas catheter Qualifiers: Chronicity: acute Qualified Code(s): J81.0 - Acute pulmonary edema (5) Hx of rheumatoid arthritis Current Visit: Yes Status: Chronic hx of rheumatoid arthritis being followed by Dr. Romo. -Will hold methotrexate since concern for pneumonia as cause for acute on chronic respiratory failure. CBC in AM (6) Hx of major depression Current Visit: Yes Status: Chronic hx of major depression continue lexapro start home buporion (7) History of CVA in adulthood Current Visit: Yes Status: Chronic Patient had lacunar infarct 2014 with symptoms of left sided weakness. -will continue home statin, and aspirin 81mg. (8) Diabetes mellitus Current Visit: Yes Status: Chronic Controlled. Last hemoglobin A1c 5.9 -At home patient is on metformin and Linagliptin. -currently on SSI with gluclsoe levels between 150-200 -continue basal dose levamir 22 units. Qualifiers: Diabetes mellitus type: type 2 Diabetes mellitus complication status: with unspecified complications Diabetes mellitus mcc insulin use: without mcc use Qualified Code(s): E11.8 - Type 2 diabetes mellitus with unspecified complications (9) Hypertension Current Visit: Yes Status: Chronic Initially patient presented with hypertension with systolic of 203. -Since being intubated and sedated patient's blood pressures under control, now extubated -Continue home amlodipine, atenolol. -lisinopril/losartan d/c due to dominik. Qualifiers: Hypertension type: essential hypertension Qualified Code(s): I10 - Essential (primary) hypertension (10) DVT prophylaxis Current Visit: Yes Status: Acute continue heparin (11) History of hypothyroidism Current Visit: Yes Status: Chronic TSH within normal limits continue home dose of levothyroxine. Subjective Principal diagnosis: Acute on chronic respiratory failure Interval history: Patient tolerating BiPAP. She denies any chest pain, shortness of breath, abdominal pain, likely cramps. Most likely will be transferred out today. Objective PUL Vital signs: Last Vital Signs Temp 97.8 F 11/19/16 05:07 Pulse 77 11/19/16 06:00 Resp 26 11/19/16 06:00 BP 155/85 11/19/16 06:00 Pulse Ox 91 L 11/19/16 06:00 General appearance: no acute distress Eyes: nonicteric ENT: oropharynx moist Mallampati (class): 3 Effort: normal Auscultation: bilateral: clear Cardiovascular: regular rate and rhythm Gastrointestinal: normoactive bowel sounds, soft, non-tender, non-distended Integumentary: normal Extremities: no cyanosis, no edema, no clubbing normal mental status mood appropriate Results - Laboratory Findings CBC and BMP: 11/19/16 02:57 11/19/16 02:57 ABG ABG pH 7.33 pH Units (7.32-7.45) 11/18/16 04:25 ABG pCO2 89 mmHg (35-45) H* 11/18/16 04:25 ABG pO2 65 mmHg (85-104) L 11/18/16 04:25 ABG O2 Saturation 91 % (95-98) L 11/18/16 04:25 Abnormal lab findings: Abnormal lab results MCHC 31.5 g/dL (31.6-35.5) L 11/19/16 02:57 Neutrophils # 10.0 K/mcL (1.6-8.9) H 11/19/16 02:57 Lymphocytes # 0.3 K/mcL (0.6-4.6) L 11/19/16 02:57 ABG pCO2 89 mmHg (35-45) H* 11/18/16 04:25 ABG pO2 65 mmHg (85-104) L 11/18/16 04:25 ABG HCO3 46.9 mEQ/L (21-27) H 11/18/16 04:25 ABG Total CO2 49.6 mEq/L (20-26) H 11/18/16 04:25 ABG O2 Saturation 91 % (95-98) L 11/18/16 04:25 ABG Base Excess 17.0 mEq/L (-2.0 to 3.0) H 11/18/16 04:25 Chloride 95 mEq/L (98-109) L 11/19/16 02:57 Carbon Dioxide 34 mEq/L (19-29) H 11/19/16 02:57 BUN 59 mg/dL (7-20) H 11/19/16 02:57 Creatinine 1.15 mg/dL (0.57-1.11) H 11/19/16 02:57 Est GFR ( Amer) 57 (> 60) L 11/19/16 02:57 Est GFR (Non-Af Amer) 47 (> 60) L 11/19/16 02:57 BUN/Creatinine Ratio 51 (6-26) H 11/19/16 02:57 Glucose 220 mg/dL (70-99) H 11/19/16 02:57 POC Glucose 219 (58-89) H 11/18/16 19:55 Calculated Osmolality 311 (280-300) H 11/19/16 02:57 Ionized Calcium 1.09 mmol/L (1.15-1.35) L 11/19/16 02:57 B-Natriuretic Peptide 106 pg/mL (0-100) H 11/16/16 16:09 Albumin 3.0 g/dL (3.5-5.0) L 11/17/16 03:43 Albumin/Globulin Ratio 0.9 (1.1-2.2) L 11/17/16 03:43 Urine Clarity Cloudy (Clear) A 11/16/16 23:55 Urine Protein >=300 mg/dL (Neg-Trace) H 11/16/16 23:55 Urine Glucose (UA) 100 mg/dL (Normal) H 11/16/16 23:55 Urine Blood Moderate (Negative) H 11/16/16 23:55 Urine Bilirubin Moderate (Negative) H 11/16/16 23:55 Urine Microscopic RBC 3-5 per hpf (0-3) H 11/16/16 23:55 Urine Microscopic WBC 5-15 per hpf (0-3) H 11/16/16 23:55 Ur Squamous Epith Cells Many per lpf (None-Few) H 11/16/16 23:55 Urine Bacteria Many per hpf (None-Few) H 11/16/16 23:55 Hyaline Casts Many per lpf (None-Few) H 11/16/16 23:55 Granular Casts Few per lpf (None Seen) H 11/16/16 23:55 WBC Casts Moderate per lpf (None Seen) H 11/16/16 23:55 Urine Mucus Many (Few) H 11/16/16 23:55 Urine Yeast Few per hpf (None Seen) H 11/16/16 23:55 Ur Culture Indicated? YES (NO) A 11/16/16 23:55 Protein/Creatinin Ratio 0.26 mg/mg (0-0.20) H 11/18/16 11:17 Urine Total Protein 28 mg/dL (1-14) H 11/18/16 11:17 - Microbiology Findings Microbiology Findings: Microbiology, Last 48 Hours 11/16/16 23:55 Urine Culture - Final Urine,Clean Catch No growth. 11/18/16 06:32 Legionella Antigen - Final Urine,Catheterized Streptococcus pneumoniae Antigen (M - Final 11/17/16 00:05 Sputum Culture - Preliminary Sputum - Clinical Findings Intake & Output: Intake & Output 11/18/16 11/18/16 11/19/16 15:59 23:59 07:59 Intake Total 1900 / 1900 0 / 0 Output Total 200 / 200 950 / 950 900 / 900 Balance -200 / -200 950 / 950 -900 / -900 Weight 87.8 kg Consult Discharge Plan - Plan Referrals: NO,PCP [Primary Care Provider] - <Felipe Putnam - Last Filed: 11/19/16 16:21> Objective PUL Vital signs: Last Vital Signs Temp 98.0 F 11/19/16 12:00 Pulse 71 11/19/16 15:48 Resp 16 11/19/16 15:57 BP 152/84 11/19/16 14:00 Pulse Ox 99 11/19/16 15:57 Results - Laboratory Findings CBC and BMP: 11/19/16 02:57 11/19/16 02:57 ABG ABG pH 7.33 pH Units (7.32-7.45) 11/18/16 04:25 ABG pCO2 89 mmHg (35-45) H* 11/18/16 04:25 ABG pO2 65 mmHg (85-104) L 11/18/16 04:25 ABG O2 Saturation 91 % (95-98) L 11/18/16 04:25 Abnormal lab findings: Abnormal lab results MCHC 31.5 g/dL (31.6-35.5) L 11/19/16 02:57 Neutrophils # 10.0 K/mcL (1.6-8.9) H 11/19/16 02:57 Lymphocytes # 0.3 K/mcL (0.6-4.6) L 11/19/16 02:57 ABG pCO2 89 mmHg (35-45) H* 11/18/16 04:25 ABG pO2 65 mmHg (85-104) L 11/18/16 04:25 ABG HCO3 46.9 mEQ/L (21-27) H 11/18/16 04:25 ABG Total CO2 49.6 mEq/L (20-26) H 11/18/16 04:25 ABG O2 Saturation 91 % (95-98) L 11/18/16 04:25 ABG Base Excess 17.0 mEq/L (-2.0 to 3.0) H 11/18/16 04:25 Chloride 95 mEq/L (98-109) L 11/19/16 02:57 Carbon Dioxide 34 mEq/L (19-29) H 11/19/16 02:57 BUN 59 mg/dL (7-20) H 11/19/16 02:57 Creatinine 1.15 mg/dL (0.57-1.11) H 11/19/16 02:57 Est GFR ( Amer) 57 (> 60) L 11/19/16 02:57 Est GFR (Non-Af Amer) 47 (> 60) L 11/19/16 02:57 BUN/Creatinine Ratio 51 (6-26) H 11/19/16 02:57 Glucose 220 mg/dL (70-99) H 11/19/16 02:57 POC Glucose 281 (58-89) H 11/19/16 11:47 Calculated Osmolality 311 (280-300) H 11/19/16 02:57 Ionized Calcium 1.09 mmol/L (1.15-1.35) L 11/19/16 14:18 B-Natriuretic Peptide 106 pg/mL (0-100) H 11/16/16 16:09 Albumin 3.0 g/dL (3.5-5.0) L 11/17/16 03:43 Albumin/Globulin Ratio 0.9 (1.1-2.2) L 11/17/16 03:43 Urine Clarity Cloudy (Clear) A 11/16/16 23:55 Urine Protein >=300 mg/dL (Neg-Trace) H 11/16/16 23:55 Urine Glucose (UA) 100 mg/dL (Normal) H 11/16/16 23:55 Urine Blood Moderate (Negative) H 11/16/16 23:55 Urine Bilirubin Moderate (Negative) H 11/16/16 23:55 Urine Microscopic RBC 3-5 per hpf (0-3) H 11/16/16 23:55 Urine Microscopic WBC 5-15 per hpf (0-3) H 11/16/16 23:55 Ur Squamous Epith Cells Many per lpf (None-Few) H 11/16/16 23:55 Urine Bacteria Many per hpf (None-Few) H 11/16/16 23:55 Hyaline Casts Many per lpf (None-Few) H 11/16/16 23:55 Granular Casts Few per lpf (None Seen) H 11/16/16 23:55 WBC Casts Moderate per lpf (None Seen) H 11/16/16 23:55 Urine Mucus Many (Few) H 11/16/16 23:55 Urine Yeast Few per hpf (None Seen) H 11/16/16 23:55 Ur Culture Indicated? YES (NO) A 11/16/16 23:55 Protein/Creatinin Ratio 0.26 mg/mg (0-0.20) H 11/18/16 11:17 Urine Total Protein 28 mg/dL (1-14) H 11/18/16 11:17 - Microbiology Findings Microbiology Findings: Microbiology, Last 48 Hours 11/17/16 00:05 Sputum Culture - Preliminary Sputum 11/16/16 23:55 Urine Culture - Final Urine,Clean Catch No growth. 11/18/16 06:32 Legionella Antigen - Final Urine,Catheterized Streptococcus pneumoniae Antigen (M - Final - Clinical Findings Intake & Output: Intake & Output 11/19/16 11/19/16 11/19/16 07:59 15:59 23:59 Intake Total 0 / 0 350 / 350 Output Total 900 / 900 475 / 475 Balance -900 / -900 -125 / -125 Weight 87.8 kg - Attending Attestation I examined this patient and my medical decision-making was reviewed with the STEEL BUFFER/PA/Advanced Practice Nurse/Resident Physician. I agree with the documented findings, disposition and treatment plan as described except to the extent set forth below. Patient seen and examined. Labs, radiology, chart personally reviewed. Agree with resident's history and physical, assessment, plan with following comments: COMPUTER PROGRAMMER: Patient follows commands, Pulmonary: Acceptable oxygenation and ventilation. Transition IV steroid to oral and use BiPAP as needed Cardiovascular: stable GI: Nutrition per dietary and GI prophylaxis per routine Heme: DVT prophylaxis per routine ID: Continue antibiotics and plan to de-escalation Renal; urine out put and renal funtion reviewed Endorcine: blood glucose is monitored Lines: all lines checked and no evidence of infections Skin: skin care to prevent pressure ulcers per nursing routine care Patient can be transferred to the floor
[2016-11-19] MEDS: *HR* Heparin 5,000 UNIT/ML VIAL SQ SCH ×3 (08:04→23:22)
[2016-11-19] MEDS: Insulin LISPRO 300 UNITS/3 ML VIAL SQ SCH ×4 (08:04→20:36)
[2016-11-19] MEDS: Gabapentin 100 MG CAPSULE PO SCH ×5 (08:05→20:31)
[2016-11-19] MEDS: BuPROPion SR (12 HR) 100 MG TABLET PO SCH ×3 (08:06→20:32)
[2016-11-19] MEDS: lamoTRIgine 100 MG TABLET PO SCH ×2 (08:06→09:42)
[2016-11-19] MEDS: Pantoprazole 40 MG VIAL IVP SCH ×2 (08:06→09:43)
[2016-11-19] MEDS ORDERED: Potassium Chloride Elixir 20 MEQ/15 ML UDC PO PRN (08:30)
[2016-11-19] MEDS ORDERED: *HR* Metoprolol 5 MG/5 ML VIAL IVP PRN (08:30)
[2016-11-19] MEDS ORDERED: Calcium Gluconate 1,000 MG in D5% in Water 100 ML IVPB PRN (08:30)
[2016-11-19] MEDS ORDERED: Magnesium Sulfate 2 GM in D5% in Water 100 ML IVPB PRN (08:30)
[2016-11-19] MEDS ORDERED: Sodium Phosphate 30 MMOL in D5% in Water 100 ML IVPB PRN (08:30)
[2016-11-19] MEDS ORDERED: Naloxone 0.4 MG/ML INJ IVP PRN (08:30)
[2016-11-19] MEDS ORDERED: *HR* Dextrose 50 % in Water (Syg) 50 ML SYRINGE IVP PRN (08:30)
[2016-11-19] MEDS ORDERED: Dextrose Gel 15 GM PO PRN ×2 (08:30)
[2016-11-19] MEDS ORDERED: Levofloxacin 750 MG/150 ML 750 MG/150 ML BAG IVPB SCH (09:00)
[2016-11-19] MEDS ORDERED: amLODIPine 5 MG TABLET PO SCH (09:00)
[2016-11-19] MEDS: amLODIPine 5 MG TABLET PO SCH (09:43)
[2016-11-19] MEDS: predniSONE 20 MG TABLET PO SCH (11:45)
[2016-11-19] MEDS ORDERED: methylPREDNISolone 125 MG/2 ML VIAL IVP SCH (12:00)
--- NOTE | 2016-11-19 18:27 | Podiatry Consult Note ---
Date of Encounter: 11/19/16 Time of Encounter: 12:35 Assessment and Plan (1) Subungual hematoma of toe of left foot Current visit: Yes Status: Acute Assessment: #1 subungual hematoma left great toe without bacterial infection or evidence of complication #2 Multiple comorbidities as outlined in history. #3 advanced onychomycosis bilaterally 10 Plan: #1 we will debride nails of the side depending upon maturity of subungual hematoma nail avulsion may be necessary. Qualifiers: Encounter type: initial encounter Qualified Code(s): S90.222A - Contusion of left lesser toe(s) with damage to nail, initial encounter History of Present Illness Chief complaint: Discoloration left great toe HPI: Ms. Jhaveri is a 71 year old female admitted for multiple comorbidities exacerbation of COPD. Patient sitting up in bed conversant alert and oriented. Patient has no recollection of injury or trauma to the foot which is not unusual given her history of significant loss of protective sensation secondary to diabetic neuropathy. Cursory exam we observe a large subungual hematoma secondary to onychogryphosis/onychauxis secondary to onychomycosis. No cellulitis or lymphangitis noted draining purulence no fluctuance. Toenail likely to auto avulse. Patient will need bedside debridement. This particular presentation is not acute. We will treat bedside next 24 hours. Past Med Surg Social Fam HX - Past Medical History Medical history: COPD, diabetes, hyperlipidemia, hypertension, thyroid disease, other (Psoriasis, rheumatoid arthritis) Psychiatric history: anxiety, depression - Past Surgical History Surgical History: cholecystectomy, other (Tubal ligation, local cord biopsy, bilateral cataract surgery) - Social History Smoking Status: Current every day smoker Smokeless Tobacco Status: No Alcohol use: none Drug use: other - Family History Father Living Status: Hx Family Respiratory Disorders: Yes (COPD) Hx Family Endocrine Disorder: Yes (Diabetes) Mother Living Status: Hx Family Cardiac Disorders: Yes (Hypertension) Hx Family Endocrine Disorder: Yes (Hypothyroidism, diabetes) Medications and Allergies Aclidinium [place] [Tudorza Pressair] 400 mcg IH BID 11/16/16 [History] Albuterol Neb [Proventil Neb] 2.5 mg IH Q4H PRN 11/16/16 [History] Albuterol Sulfate [Ventolin Hfa] 2 puff IH Q4H PRN 11/16/16 [History] Alendronate Sodium [Fosamax] 70 mg PO QWEEK 11/16/16 [History] Amlodipine [Norvasc] 5 mg PO DAILY 11/16/16 [History] Aspirin Enteric Coated [Aspirin EC] 325 mg PO DAILY 11/16/16 [History] Atenolol [Tenormin] 25 mg PO DAILY 11/16/16 [History] BuPROPion SR (12 HR) [Wellbutrin SR] 200 mg PO BID 11/16/16 [History] Budesonide/Formoterol 160/4.5 [Symbicort 160/4.5] 2 puff IH BIDR 11/16/16 [ History] Ergocalciferol (VITAMIN D2) [Vitamin D2] 50,000 unit PO QWEEK 11/16/16 [History] Escitalopram [Lexapro] 20 mg PO DAILY 11/16/16 [History] Folic Acid [Folic Acid] 1 mg PO DAILY 11/16/16 [History] Gabapentin [Neurontin] 300 mg PO BID 11/16/16 [History] Ipratropium/Albuterol Neb [Duoneb] 3 ml IH Q6H PRN 11/16/16 [History] LORazepam [Ativan] 1 mg PO QID 11/16/16 [History] Lamotrigine [Lamictal] 100 mg PO DAILY 11/16/16 [History] Lansoprazole [Prevacid] 30 mg PO DAILY 11/16/16 [History] Levothyroxine Sodium [Synthroid] 200 mcg PO QAM 11/16/16 [History] Linagliptin [Tradjenta] 5 mg PO DAILY 11/16/16 [History] Losartan/Hydrochlorothiazide [Hyzaar 100-25 Tablet] 1 each PO DAILY 11/16/16 [ History] Lovastatin [Mevacor] 20 mg PO QPM 11/16/16 [History] Metformin HCl [Metformin HCl ER] 1,500 mg PO DAILY 11/16/16 [History] Methotrexate [Otrexup] 12.5 mg PO QWEEK 11/16/16 [History] Potassium Chloride [Klor-Con 10] 10 meq PO TID 11/16/16 [History] Allergies No Known Allergies Allergy (Verified 04/01/16 11:12) All Systems Reviewed: A 10-system review of systems was performed and is negative for pertinent findings except as documented above in the HPI. Physical Exam - Constitutional Vitals: Temp Pulse Resp BP Pulse Ox 98.1 F 87 24 148/84 91 L 11/19/16 16:00 11/19/16 18:00 11/19/16 18:00 11/19/16 18:00 11/19/16 18:00 Results - Labs Result Diagrams: 11/19/16 02:57 11/19/16 02:57 Labs: Abnormal lab results MCHC 31.5 g/dL (31.6-35.5) L 11/19/16 02:57 Neutrophils # 10.0 K/mcL (1.6-8.9) H 11/19/16 02:57 Lymphocytes # 0.3 K/mcL (0.6-4.6) L 11/19/16 02:57 ABG pCO2 89 mmHg (35-45) H* 11/18/16 04:25 ABG pO2 65 mmHg (85-104) L 11/18/16 04:25 ABG HCO3 46.9 mEQ/L (21-27) H 11/18/16 04:25 ABG Total CO2 49.6 mEq/L (20-26) H 11/18/16 04:25 ABG O2 Saturation 91 % (95-98) L 11/18/16 04:25 ABG Base Excess 17.0 mEq/L (-2.0 to 3.0) H 11/18/16 04:25 Chloride 95 mEq/L (98-109) L 11/19/16 02:57 Carbon Dioxide 34 mEq/L (19-29) H 11/19/16 02:57 BUN 59 mg/dL (7-20) H 11/19/16 02:57 Creatinine 1.15 mg/dL (0.57-1.11) H 11/19/16 02:57 Est GFR ( Amer) 57 (> 60) L 11/19/16 02:57 Est GFR (Non-Af Amer) 47 (> 60) L 11/19/16 02:57 BUN/Creatinine Ratio 51 (6-26) H 11/19/16 02:57 Glucose 220 mg/dL (70-99) H 11/19/16 02:57 POC Glucose 295 (58-89) H 11/19/16 16:33 Calculated Osmolality 311 (280-300) H 11/19/16 02:57 Ionized Calcium 1.09 mmol/L (1.15-1.35) L 11/19/16 14:18 B-Natriuretic Peptide 106 pg/mL (0-100) H 11/16/16 16:09 Albumin 3.0 g/dL (3.5-5.0) L 11/17/16 03:43 Albumin/Globulin Ratio 0.9 (1.1-2.2) L 11/17/16 03:43 Urine Clarity Cloudy (Clear) A 11/16/16 23:55 Urine Protein >=300 mg/dL (Neg-Trace) H 11/16/16 23:55 Urine Glucose (UA) 100 mg/dL (Normal) H 11/16/16 23:55 Urine Blood Moderate (Negative) H 11/16/16 23:55 Urine Bilirubin Moderate (Negative) H 11/16/16 23:55 Urine Microscopic RBC 3-5 per hpf (0-3) H 11/16/16 23:55 Urine Microscopic WBC 5-15 per hpf (0-3) H 11/16/16 23:55 Ur Squamous Epith Cells Many per lpf (None-Few) H 11/16/16 23:55 Urine Bacteria Many per hpf (None-Few) H 11/16/16 23:55 Hyaline Casts Many per lpf (None-Few) H 11/16/16 23:55 Granular Casts Few per lpf (None Seen) H 11/16/16 23:55 WBC Casts Moderate per lpf (None Seen) H 11/16/16 23:55 Urine Mucus Many (Few) H 11/16/16 23:55 Urine Yeast Few per hpf (None Seen) H 11/16/16 23:55 Ur Culture Indicated? YES (NO) A 11/16/16 23:55 Protein/Creatinin Ratio 0.26 mg/mg (0-0.20) H 11/18/16 11:17 Urine Total Protein 28 mg/dL (1-14) H 11/18/16 11:17 H & H 11/19/16 Range/Units 02:57 Hgb 12.9 D (11.5-15.4) g/dL Hct 41.0 (35.3-44.9) % All other labs normal. Consult Discharge Plan - Plan Referrals: NO,PCP [Primary Care Provider] -
[2016-11-19] MEDS: Insulin DETEMIR 100 UNIT/ML X5UNITS SQ SCH (20:32)
[2016-11-19] MEDS ORDERED: Insulin DETEMIR 100 UNIT/ML X5UNITS SQ SCH (21:00)
[2016-11-20] MEDS: Ipratropium/Albuterol Neb 3 ML IH SCH ×7 (00:33→23:30)
[2016-11-20 07:25] LABS: Basophils % 0.3 %; Hematocrit 40.5 % (35.3-44.9); Hemoglobin 12.8 g/dL (11.5-15.4); Lymphocytes % 8.8 %; Mean Corpuscular HGB Conc 31.6 g/dL (31.6-35.5); Mean Corpuscular Hemoglobin 28.8 pg (28.0-33.3); Mean Corpuscular Volume 91.2 fL (83.0-100.0); Mean Platelet Volume 11.1 fL (9.4-12.4); Monocytes # 1.1 K/mcL (0.0-1.3); Monocytes % 10.1 %; Neutrophils # 8.6 K/mcL (1.6-8.9); Platelet Count 187 K/mcL (140-400); Red Blood Count 4.44 M/mcL (3.82-4.97); Red Cell Distribution Width 13.2 % (11.5-14.5); Segmented Neutrophils % 78.8 %
[2016-11-20 07:37] LABS: BUN/Creatinine Ratio 65 (6-26); Blood Urea Nitrogen 57 mg/dL (7-20); Carbon Dioxide 36 mEq/L (19-29); Chloride 100 mEq/L (98-109); Glucose 141 mg/dL (70-99); Osmolality,Calculated 312 (280-300); Potassium 4.2 mEq/L (3.5-4.5); Sodium 142 mEq/L (136-145); eGFR For African Americans > 60 (> 60); eGFR For Non-African Americans > 60 (> 60)
[2016-11-20] MEDS: Insulin LISPRO 300 UNITS/3 ML VIAL SQ SCH ×4 (07:38→21:48)
--- NOTE | 2016-11-20 08:31 | Pulmonology Progress Note ---
Date of Encounter: 11/20/16 Time of Encounter: 08:01 Assessment and Plan (1) Acute exacerbation of chronic obstructive airways disease Current Visit: Yes Status: Resolved 71-year-old female with a history of COPD on 2.5 L home oxygen presented with chief complaint of shortness of breath worsening over the past 3 days. Patient was somnolent on presentation. Initial ABG showed respiratory acidosis and hypercapnia with hypoxia. Patient was placed on BiPAP and showed minimal improvement with repeat ABG. She was moved to the floor where hospitalist noticed patient was somnolent, unresponsive to verbal stimuli. Third ABG ordered on the patient showed no improvement and her doctor acidosis and she was intubated and moved to the ICU. Checks her x-ray showed worsening left lower lobe atelectasis, emphysema and pulmonary edema. 2nd to infectious etiology, new onset CHF unknown diastolic or systolic, undiagnosed sleep apnea. -Patient tolerating BIPAP will transition to high flow NC and transfer to . -Lung exam shows improved breath sounds. -Repeat CBC, BMP in the morning -Continue Symbicort, nebulizer treatments, d/c Solu-Medrol and transition to prednisone, Levaquin (4) -patient may need psych social worker to set up biapap for outpatient use. Possible CAP, unknown bacterial or viral in origin -Respiratory panel negative -urine antigens negative -sputum and blood cultures pending preliminarily negative -influenza screen negative Possible diastolic CHF -echocardiogram shows LVEF 65% with mild diastolic dysfunction and mild tricuspid regurg, moderate pulmonary hypertension -lasix was d/c due to worsening kidney function which has improved to 1.15 -troponin WNL Sleep apnea -patient will need outpatient sleep study -RF obesity, Hypertension, tobacco abuse DVT/PE ruled out wells score for DVT 0 Wells score for PE 1.5 TL Lower extremity doppler negative (2) Acute respiratory failure with hypoxia and hypercapnia Current Visit: Yes Status: Acute (3) DOMINIK (acute kidney injury) Current Visit: Yes Status: Acute resolved. Patient has developed DOMINIK in the past 48 hours. like 2nd to ATN: Urinalysis shows protein and blood, granular and hayline casts Renal US shows parenchymal thickening lasix, and lisinopril on hold (4) Pulmonary edema Current Visit: Yes Status: Resolved 2nd to diastolic CHF. -resolved. absent pedal edema and respiratory rales. -Chest x-ray showed cardiomegaly and bilateral pulmonary edema. -last echo in 2014 showed LVEF of 65% with no wall motion or valvular abnormalities -Echocardiogram results as stated above. Qualifiers: Chronicity: acute Qualified Code(s): J81.0 - Acute pulmonary edema (5) Hx of rheumatoid arthritis Current Visit: Yes Status: Chronic hx of rheumatoid arthritis being followed by Dr. Romo. -Will hold methotrexate since concern for pneumonia as cause for acute on chronic respiratory failure. CBC in AM (6) Hx of major depression Current Visit: Yes Status: Chronic hx of major depression continue lexapro start home buporion (7) History of CVA in adulthood Current Visit: Yes Status: Chronic Patient had lacunar infarct 2014 with symptoms of left sided weakness. -will continue home statin, and aspirin 81mg. (8) Diabetes mellitus Current Visit: Yes Status: Chronic Controlled. Last hemoglobin A1c 5.9 -At home patient is on metformin and Linagliptin. -currently on SSI with gluclsoe levels between 150-200 -continue basal dose levamir 22 units. 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 -Since being intubated and sedated patient's blood pressures under control, now extubated -Continue home amlodipine, atenolol. Qualifiers: Hypertension type: essential hypertension Qualified Code(s): I10 - Essential (primary) hypertension (10) DVT prophylaxis Current Visit: Yes Status: Acute continue heparin (11) History of hypothyroidism Current Visit: Yes Status: Chronic TSH within normal limits continue home dose of levothyroxine. Subjective Principal diagnosis: Acute on chronic respiratory failure Interval history: Patient tolerating NC on 5L. Transfer to any unit with continuous pulse ox. Objective PUL Vital signs: Last Vital Signs Temp 96.8 F L 11/20/16 07:54 Pulse 56 11/20/16 07:30 Resp 28 11/20/16 07:30 BP 135/68 11/20/16 06:00 Pulse Ox 94 L 11/20/16 07:30 General appearance: no acute distress Eyes: nonicteric ENT: oropharynx moist Neck: supple Effort: normal Auscultation: bilateral: clear Percussion: bilateral: not dull Tactile fremitus: bilateral: normal Cardiovascular: regular rate and rhythm Gastrointestinal: normoactive bowel sounds, non-distended Integumentary: normal Extremities: no cyanosis, no edema, no clubbing, other (left subungual hematoma and brittle nails ) Musculoskeletal: no deformities, ROM normal normal mental status, non-focal exam mood appropriate, affect normal Results - Laboratory Findings CBC and BMP: 11/20/16 06:40 11/20/16 06:40 ABG ABG pH 7.33 pH Units (7.32-7.45) 11/18/16 04:25 ABG pCO2 89 mmHg (35-45) H* 11/18/16 04:25 ABG pO2 65 mmHg (85-104) L 11/18/16 04:25 ABG O2 Saturation 91 % (95-98) L 11/18/16 04:25 Abnormal lab findings: Abnormal lab results ABG pCO2 89 mmHg (35-45) H* 11/18/16 04:25 ABG pO2 65 mmHg (85-104) L 11/18/16 04:25 ABG HCO3 46.9 mEQ/L (21-27) H 11/18/16 04:25 ABG Total CO2 49.6 mEq/L (20-26) H 11/18/16 04:25 ABG O2 Saturation 91 % (95-98) L 11/18/16 04:25 ABG Base Excess 17.0 mEq/L (-2.0 to 3.0) H 11/18/16 04:25 Carbon Dioxide 36 mEq/L (19-29) H 11/20/16 06:40 BUN 57 mg/dL (7-20) H 11/20/16 06:40 BUN/Creatinine Ratio 65 (6-26) H 11/20/16 06:40 Glucose 141 mg/dL (70-99) H 11/20/16 06:40 POC Glucose 133 (58-89) H 11/20/16 07:26 Calculated Osmolality 312 (280-300) H 11/20/16 06:40 Ionized Calcium 1.09 mmol/L (1.15-1.35) L 11/19/16 14:18 B-Natriuretic Peptide 106 pg/mL (0-100) H 11/16/16 16:09 Albumin 3.0 g/dL (3.5-5.0) L 11/17/16 03:43 Albumin/Globulin Ratio 0.9 (1.1-2.2) L 11/17/16 03:43 Urine Clarity Cloudy (Clear) A 11/16/16 23:55 Urine Protein >=300 mg/dL (Neg-Trace) H 11/16/16 23:55 Urine Glucose (UA) 100 mg/dL (Normal) H 11/16/16 23:55 Urine Blood Moderate (Negative) H 11/16/16 23:55 Urine Bilirubin Moderate (Negative) H 11/16/16 23:55 Urine Microscopic RBC 3-5 per hpf (0-3) H 11/16/16 23:55 Urine Microscopic WBC 5-15 per hpf (0-3) H 11/16/16 23:55 Ur Squamous Epith Cells Many per lpf (None-Few) H 11/16/16 23:55 Urine Bacteria Many per hpf (None-Few) H 11/16/16 23:55 Hyaline Casts Many per lpf (None-Few) H 11/16/16 23:55 Granular Casts Few per lpf (None Seen) H 11/16/16 23:55 WBC Casts Moderate per lpf (None Seen) H 11/16/16 23:55 Urine Mucus Many (Few) H 11/16/16 23:55 Urine Yeast Few per hpf (None Seen) H 11/16/16 23:55 Ur Culture Indicated? YES (NO) A 11/16/16 23:55 Protein/Creatinin Ratio 0.26 mg/mg (0-0.20) H 11/18/16 11:17 Urine Total Protein 28 mg/dL (1-14) H 11/18/16 11:17 - Microbiology Findings Microbiology Findings: Microbiology, Last 48 Hours 11/17/16 00:05 Sputum Culture - Final Sputum 11/16/16 23:55 Urine Culture - Final Urine,Clean Catch No growth. 11/18/16 06:32 Legionella Antigen - Final Urine,Catheterized Streptococcus pneumoniae Antigen (M - Final - Clinical Findings Intake & Output: Intake & Output 11/19/16 11/20/16 11/20/16 23:59 07:59 15:59 Output Total 250 / 250 0 / 0 Balance -250 / -250 0 / 0 Weight 89.5 kg Consult Discharge Plan - Plan Referrals: NO,PCP [Primary Care Provider] -
[2016-11-20] MEDS: *HR* Heparin 5,000 UNIT/ML VIAL SQ SCH ×3 (08:43→23:51)
[2016-11-20] MEDS: Gabapentin 100 MG CAPSULE PO SCH ×4 (08:44→21:49)
[2016-11-20] MEDS: lamoTRIgine 100 MG TABLET PO SCH (08:44)
[2016-11-20] MEDS: predniSONE 20 MG TABLET PO SCH (08:45)
[2016-11-20] MEDS: amLODIPine 5 MG TABLET PO SCH (08:45)
[2016-11-20] MEDS: Pantoprazole 40 MG VIAL IVP SCH (08:45)
[2016-11-20] MEDS: BuPROPion SR (12 HR) 100 MG TABLET PO SCH ×2 (08:45→21:48)
[2016-11-20] MEDS: Budesonide/Formoterol 160/4.5 MDI IH SCH ×2 (11:11→19:52)
[2016-11-20] MEDS: Insulin DETEMIR 100 UNIT/ML X5UNITS SQ SCH (21:48)
[2016-11-21] MEDS: Ipratropium/Albuterol Neb 3 ML IH SCH ×6 (04:51→23:13)
[2016-11-21 06:17] LABS: Basophils % 0.2 %; Hematocrit 37.7 % (35.3-44.9); Hemoglobin 11.9 g/dL (11.5-15.4); Lymphocytes # 1.2 K/mcL (0.6-4.6); Lymphocytes % 11.4 %; Mean Corpuscular HGB Conc 31.6 g/dL (31.6-35.5); Mean Corpuscular Hemoglobin 29.3 pg (28.0-33.3); Mean Corpuscular Volume 92.9 fL (83.0-100.0); Mean Platelet Volume 10.5 fL (9.4-12.4); Monocytes # 0.9 K/mcL (0.0-1.3); Neutrophils # 7.9 K/mcL (1.6-8.9); Platelet Count 186 K/mcL (140-400); Red Blood Count 4.06 M/mcL (3.82-4.97); Red Cell Distribution Width 13.3 % (11.5-14.5); Segmented Neutrophils % 77.4 %
[2016-11-21 06:30] LABS: BUN/Creatinine Ratio 53 (6-26); Blood Urea Nitrogen 48 mg/dL (7-20); Calcium 8.8 mg/dL (8.6-10.8); Carbon Dioxide 37 mEq/L (19-29); Chloride 100 mEq/L (98-109); Glucose 135 mg/dL (70-99); Osmolality,Calculated 311 (280-300); Potassium 4.2 mEq/L (3.5-4.5); Sodium 143 mEq/L (136-145); eGFR For African Americans > 60 (> 60); eGFR For Non-African Americans > 60 (> 60)
[2016-11-21] MEDS: BuPROPion SR (12 HR) 100 MG TABLET PO SCH ×2 (08:09→20:39)
[2016-11-21] MEDS: lamoTRIgine 100 MG TABLET PO SCH (08:09)
[2016-11-21] MEDS: Gabapentin 100 MG CAPSULE PO SCH ×4 (08:10→20:39)
[2016-11-21] MEDS: amLODIPine 5 MG TABLET PO SCH (08:10)
[2016-11-21] MEDS: predniSONE 20 MG TABLET PO SCH (08:10)
[2016-11-21] MEDS: *HR* Heparin 5,000 UNIT/ML VIAL SQ SCH ×2 (08:10→15:35)
[2016-11-21] MEDS: Pantoprazole 40 MG VIAL IVP SCH (08:11)
[2016-11-21] MEDS: Insulin LISPRO 300 UNITS/3 ML VIAL SQ SCH ×4 (08:11→20:40)
[2016-11-21] MEDS ORDERED: Levofloxacin 750 MG/150 ML 750 MG/150 ML BAG IVPB SCH (09:00)
[2016-11-21] MEDS: Budesonide/Formoterol 160/4.5 MDI IH SCH ×2 (11:35→20:08)
--- NOTE | 2016-11-21 17:33 | Internal Med Progress Note ---
Date of Encounter: 11/21/16 Time of Encounter: 14:30 - Assessment and plan (1) Acute and chronic respiratory failure ([id number]) Current Visit: Yes Status: Acute Assessment and plan: 71-year-old female with a history of COPD on 2.5 L home oxygen presented with chief complaint of shortness of breath worsening over the past 3 days. Patient was somnolent on presentation. Initial ABG showed respiratory acidosis and hypercapnia with hypoxia. Patient failed BiPAP trial and required mechanical ventilation to correct her respiratory acidosis and lethargy. Chest x-ray showed worsening left lower lobe atelectasis, emphysema and pulmonary edema. Patient improved and was extubated successfully and transition to BIPAP. Transfer to the medical floor on 11/20. Secondary to PNA, new onset diasstolic HF, and suspected OHS/KASIE. Respiratory panel negative. sputum culture negative. echocardiogram shows LVEF 65% with mild diastolic dysfunction and mild tricuspid regurg, moderate pulmonary hypertension. troponin WNL. Lower extremity doppler negative Still requiring high amount of oxygen, now on 7 L high flow nasal cannula. continue to wean off oxygen to keep SaO2 88-90%. will order overnight pulsoxiemtry. Continue Symbicort, nebulizer treatments, prednisone, Levaquin (5) . lasix was d/c due to worsening kidney function but kidney function has recovered will start maintenance dose of lasix. patient will need outpatient sleep study. Qualifiers: Respiratory failure complication: hypoxia and hypercapnia Qualified Code(s) : J96.21 - Acute and chronic respiratory failure with hypoxia; J96.22 - Acute and chronic respiratory failure with hypercapnia (2) Acute exacerbation of chronic obstructive airways disease Current Visit: Yes Status: Resolved Assessment and plan: plan as above. (3) PNA (pneumonia) Current Visit: Yes Status: Acute Assessment and plan: bacterial PNA. Qualifiers: Pneumonia type: due to unspecified organism Laterality: bilateral Lung location: lower lobe of lung Qualified Code(s): J18.9 - Pneumonia, unspecified organism (4) Diastolic heart failure Current Visit: Yes Status: Acute Assessment and plan: fluid restriction. low dose lasix. close monitor of kidney function. Qualifiers: Heart failure chronicity: acute on chronic Qualified Code(s): I50.33 - Acute on chronic diastolic (congestive) heart failure (5) Respiratory acidosis Current Visit: Yes Status: Acute Assessment and plan: resolved. (6) Diabetes mellitus Current Visit: Yes Status: Chronic Assessment and plan: fasting glucose 115 but rest accucheck 200-300. Change levemir to bid. sliding scale insulin. diabetic diet. 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 Qualified Code(s): E11.8 - Type 2 diabetes mellitus with unspecified complications (7) Hypertension Current Visit: Yes Status: Chronic Qualifiers: Hypertension type: essential hypertension Qualified Code(s): I10 - Essential (primary) hypertension (8) Hx of rheumatoid arthritis Current Visit: Yes Status: Chronic (9) Hx of major depression Current Visit: Yes Status: Chronic (10) History of CVA in adulthood Current Visit: Yes Status: Chronic (11) History of hypothyroidism Current Visit: Yes Status: Chronic (12) DOMINIK (acute kidney injury) Current Visit: Yes Status: Acute (13) Nicotine dependence Current Visit: Yes Status: Chronic Qualifiers: Nicotine product type: cigarettes Substance use status: other nicotine- induced disorder Qualified Code(s): F17.218 - Nicotine dependence, cigarettes , with other nicotine-induced disorders (14) KASIE (obstructive sleep apnea) Current Visit: Yes Status: Suspected Assessment and plan: sleep study as outpatient - Subjective Interval history: Improved shortness of breath at rest but still present at minimal exertion. dry cough. she complains of chronic lower back pain, she took percocet but her PCP stopped it recently. - Constitutional Vitals: Temp Pulse Resp BP Pulse Ox 98.2 F 72 18 154/84 90 L 11/21/16 15:00 11/21/16 15:00 11/21/16 15:45 11/21/16 15:00 11/21/16 15:45 General appearance: Present: cooperative, A&O X 3, pleasant, answers questions appropriately. Absent: no acute distress - Respiratory Respiratory exam: Present: CTAB - Cardiovascular Cardiovascular exam: Present: RRR - GI/Abdominal GI/Abdominal exam: Present: normal bowel sounds, soft. Absent: distended, tenderness - Extremities Exam Extremities exam: Absent: pedal edema - Back Exam Back exam: Absent: CVA tenderness (L), CVA tenderness (R) - Neurological Exam Neurological exam: Present: alert, oriented X3, no focal deficits, strengths equal and symetr throughout. Absent: facial droop, speech deficit Internal Medicine: Result - Labs CBC & Chem 7: 11/21/16 05:41 11/21/16 05:41 Labs: Short CBC 11/21/16 Range/Units 05:41 WBC 10.1 (4.3-11.1) K/mcL Hgb 11.9 (11.5-15.4) g/dL Hct 37.7 (35.3-44.9) % Plt Count 186 (140-400) K/mcL Neutrophils # 7.9 (1.6-8.9) K/mcL BMP 11/21/16 05:41 Sodium 143 Potassium 4.2 Chloride 100 Carbon Dioxide 37 H BUN 48 H Creatinine 0.91 Glucose 135 H Calcium 8.8 - ABG Interpretation ABG results: ABG ABG pH 7.33 pH Units (7.32-7.45) 11/18/16 04:25 ABG pCO2 89 mmHg (35-45) H* 11/18/16 04:25 ABG pO2 65 mmHg (85-104) L 11/18/16 04:25 ABG O2 Saturation 91 % (95-98) L 11/18/16 04:25 Consult Discharge Plan - Plan Referrals: NO,PCP [Primary Care Provider] -
[2016-11-21] MEDS: *HR* HYDROcodone/Acet 5/325 mg TABLET PO PRN (18:26)
[2016-11-21] MEDS: Insulin DETEMIR 100 UNIT/ML X5UNITS SQ SCH (20:42)
[2016-11-22] MEDS: *HR* Heparin 5,000 UNIT/ML VIAL SQ SCH ×3 (00:08→16:02)
[2016-11-22] MEDS: Ipratropium/Albuterol Neb 3 ML IH SCH ×5 (03:49→20:39)
[2016-11-22 05:05] LABS: Basophils # 0.1 K/mcL (0.0-0.2); Basophils % 0.5 %; Eosinophils % 0.1 %; Hematocrit 39.6 % (35.3-44.9); Hemoglobin 12.3 g/dL (11.5-15.4); Immature Granulocytes % 4.2 % (0-4); Lymphocytes % 10.2 %; Mean Corpuscular HGB Conc 31.1 g/dL (31.6-35.5); Mean Corpuscular Hemoglobin 28.7 pg (28.0-33.3); Mean Corpuscular Volume 92.3 fL (83.0-100.0); Monocytes # 0.7 K/mcL (0.0-1.3); Monocytes % 7.8 %; Neutrophils # 7.2 K/mcL (1.6-8.9); Platelet Count 177 K/mcL (140-400); Red Blood Count 4.29 M/mcL (3.82-4.97); Red Cell Distribution Width 13.2 % (11.5-14.5); Segmented Neutrophils % 77.2 %
[2016-11-22 05:17] LABS: BUN/Creatinine Ratio 51 (6-26); Blood Urea Nitrogen 41 mg/dL (7-20); Calcium 8.8 mg/dL (8.6-10.8); Carbon Dioxide 39 mEq/L (19-29); Chloride 98 mEq/L (98-109); Glucose 115 mg/dL (70-99); Osmolality,Calculated 305 (280-300); Potassium 3.9 mEq/L (3.5-4.5); Sodium 142 mEq/L (136-145); eGFR For African Americans > 60 (> 60); eGFR For Non-African Americans > 60 (> 60)
[2016-11-22] MEDS: Budesonide/Formoterol 160/4.5 MDI IH SCH ×2 (07:32→20:39)
--- NOTE | 2016-11-22 08:44 | Internal Med Progress Note ---
<Ralph Coutrney - Last Filed: 11/22/16 11:13> Date of Encounter: 11/22/16 Time of Encounter: 08:36 - Assessment and plan (1) Acute and chronic respiratory failure ([id number]) Current Visit: Yes Status: Acute Assessment and plan: 71-year-old female with a history of COPD on 2.5 L home oxygen presented with chief complaint of shortness of breath worsening over the past 3 days. Patient was somnolent on presentation. Initial ABG showed respiratory acidosis and hypercapnia with hypoxia. Patient failed BiPAP trial and required mechanical ventilation to correct her respiratory acidosis and lethargy. Chest x-ray showed worsening left lower lobe atelectasis, emphysema and pulmonary edema. Patient improved and was extubated successfully and transition to BIPAP. Transfer to the medical floor on 11/20. Secondary to PNA, new onset diastolic HF, and suspected OHS/KASIE. Respiratory panel negative. Sputum culture negative. echocardiogram shows LVEF 65% with mild diastolic dysfunction and mild tricuspid regurg, moderate pulmonary hypertension. troponin WNL. Lower extremity doppler negative. Still requiring high amount of oxygen, now on 7 L high flow nasal cannula. Currently saturating 96% on 7L. Continue to titrate down oxygen to keep SaO2 88 -90%. Continue overnight pulse ox. Continue Symbicort, nebulizer treatments, prednisone, Levaquin d3. Maintenance dose of Lasix was started and patient is tolerating it well with kidney function continuing to improve. Patient will need outpatient sleep study. Qualifiers: Respiratory failure complication: hypoxia and hypercapnia Qualified Code(s) : J96.21 - Acute and chronic respiratory failure with hypoxia; J96.22 - Acute and chronic respiratory failure with hypercapnia (2) Acute exacerbation of chronic obstructive airways disease Current Visit: Yes Status: Acute Assessment and plan: plan as above. (3) PNA (pneumonia) Current Visit: Yes Status: Acute Assessment and plan: CXR on 11/17 showed worsening left lower lobe pneumonia or atelectasis. Sputum culture only showed normal upper respiratory tract amber. Urine culture is negative for legionella and S. pneumo. Patient is receiving Levaquin d5 (review through OCT reveals skipped days) for treatment of CAP. Qualifiers: Pneumonia type: due to unspecified organism Laterality: bilateral Lung location: lower lobe of lung Qualified Code(s): J18.9 - Pneumonia, unspecified organism (4) Diastolic heart failure Current Visit: Yes Status: Acute Assessment and plan: ECHO showed LVEF of 65% and mild LV dysfunction along with mild tricuspid regurg and moderate pulmonary hypertension. Fluid restriction. low dose lasix 20mg bid. Continue monitoring kidney function. Qualifiers: Heart failure chronicity: acute on chronic Qualified Code(s): I50.33 - Acute on chronic diastolic (congestive) heart failure (5) Respiratory acidosis Current Visit: Yes Status: Resolved Assessment and plan: resolved. Secondary to acute exacerbation of chronic respiratory failure. (6) Diabetes mellitus Current Visit: Yes Status: Chronic Assessment and plan: fasting glucose 115. Continue Levemir bid and medium sliding scale insulin. diabetic diet. Qualifiers: Diabetes mellitus type: type 2 Diabetes mellitus complication status: with unspecified complications Diabetes mellitus long term care social worker insulin use: without fci use Qualified Code(s): E11.8 - Type 2 diabetes mellitus with unspecified complications (7) Nicotine dependence Current Visit: Yes Status: Chronic Assessment and plan: Nicotine patch available. Qualifiers: Nicotine product type: cigarettes Substance use status: other nicotine- induced disorder Qualified Code(s): F17.218 - Nicotine dependence, cigarettes , with other nicotine-induced disorders (8) Hypertension Current Visit: Yes Status: Chronic Assessment and plan: Blood pressure is elevated 149/85. Patient is on Norvasc 10mg PO daily, Atenolol 25 mg PO daily, and Lopressor 5 mg IVP Q6HR prn Continue to monitor. Qualifiers: Hypertension type: essential hypertension Qualified Code(s): I10 - Essential (primary) hypertension (9) Hx of rheumatoid arthritis Current Visit: Yes Status: Chronic Assessment and plan: Methotrexate being held due to pneumonia and acute on chronic respiratory failure. (10) Hx of major depression Current Visit: Yes Status: Chronic Assessment and plan: Continue home medications (11) History of hypothyroidism Current Visit: Yes Status: Chronic Assessment and plan: Continue home medication (12) DOMINIK (acute kidney injury) Current Visit: Yes Status: Resolved Assessment and plan: Resolved. Continue to monitor and avoid nephrotoxic medications (13) History of CVA in adulthood Current Visit: Yes Status: Chronic (14) KASIE (obstructive sleep apnea) Current Visit: Yes Status: Suspected Assessment and plan: Bipap tolerated, using during sleeps. sleep study as outpatient. (15) Constipation Current Visit: Yes Status: Acute Assessment and plan: Reports no bowel movments since admission. Miralax scheduled. May consider adding dulcolax as needed. Reassess tomorrow. Qualifiers: Constipation type: unspecified constipation type Qualified Code(s): K59.00 - Constipation, unspecified (16) DVT prophylaxis Current Visit: Yes Status: Acute Assessment and plan: Heparin SQ - Subjective Interval history: 71 year old female admitted for Acute on chronic respiratory failure, COPD exacerbation and pneumonia states that she is feeling pretty well today. Upon entering the room patient was sitting up in a chair eating breakfast. She reports that she is continuing to use BIPAP at night. States that her breathing continues to improve and is breathing well on 7L nasal cannula but is on 3L at home. She admits to some constipation and states that it is not normal for her to constipated. She denies any new or worsening symptoms. Patient denies headache, chest pain, SOB, abdominal pain, diarrhea, urinary symptoms, calf tenderness. - Constitutional Vitals: Temp Pulse Resp BP Pulse Ox 97.7 F 63 18 172/91 96 11/22/16 07:00 11/22/16 07:00 11/22/16 07:33 11/22/16 07:00 11/22/16 07:33 General appearance: Present: cooperative, A&O X 3, pleasant, obese, answers questions appropriately. Absent: no acute distress - Head Head exam: Present: atraumatic, normal inspection, normocephalic - Eye Eye exam: Present: normal appearance. Absent: conjunctival injection, scleral icterus - ENT ENT exam: Present: mucous membranes moist, normal exam, normal external ear exam , normal oropharynx - Neck Neck exam general surgery: Present: normal inspection, supple, trachea midline. Absent: lymphadenopathy, tenderness - Respiratory Respiratory exam: Present: decreased breath sounds, CTAB. Absent: accessory muscle use, rales, rhonchi, wheezes - Cardiovascular Cardiovascular exam: Present: RRR, +S1, +S2. Absent: diastolic murmur, gallop, rubs, systolic murmur - GI/Abdominal GI/Abdominal exam: Present: normal bowel sounds, soft, no peritoneal signs. Absent: distended, guarding, tenderness - Extremities Exam Extremities exam: Present: pedal edema (2+), warm, radial pulses palpable and symetrical. Absent: calf tenderness, cyanotic - Expanded Upper Extremities Exam Upper Arm exam: Present: swelling (1+ bilateral) - Neurological Exam Neurological exam: Present: altered, oriented X3, no focal deficits, strengths equal and symetr throughout. Absent: facial droop, speech deficit - Psychiatric Psychiatric exam: Present: normal affect, normal mood - Skin Skin exam: Present: dry, intact, normal color, warm. Absent: diaphoretic, erythema, pallor, rash Internal Medicine: Result - Labs CBC & Chem 7: 11/22/16 04:52 11/22/16 04:52 Labs: Short CBC 11/22/16 Range/Units 04:52 WBC 9.3 (4.3-11.1) K/mcL Hgb 12.3 (11.5-15.4) g/dL Hct 39.6 (35.3-44.9) % Plt Count 177 (140-400) K/mcL Neutrophils # 7.2 (1.6-8.9) K/mcL BMP 11/22/16 04:52 Sodium 142 Potassium 3.9 Chloride 98 Carbon Dioxide 39 H BUN 41 H Creatinine 0.80 Glucose 115 H Calcium 8.8 - ABG Interpretation ABG results: ABG ABG pH 7.33 pH Units (7.32-7.45) 11/18/16 04:25 ABG pCO2 89 mmHg (35-45) H* 11/18/16 04:25 ABG pO2 65 mmHg (85-104) L 11/18/16 04:25 ABG O2 Saturation 91 % (95-98) L 11/18/16 04:25 Consult Discharge Plan - Plan Referrals: NO,PCP [Primary Care Provider] - <Shy Izquierdo E - Last Filed: 11/22/16 17:50> - Assessment and plan (1) Acute and chronic respiratory failure ([id number]) Current Visit: Yes Status: Acute Qualifiers: Respiratory failure complication: hypoxia and hypercapnia Qualified Code(s) : J96.21 - Acute and chronic respiratory failure with hypoxia; J96.22 - Acute and chronic respiratory failure with hypercapnia (2) Acute exacerbation of chronic obstructive airways disease Current Visit: Yes Status: Acute (3) PNA (pneumonia) Current Visit: Yes Status: Acute Qualifiers: Pneumonia type: due to unspecified organism Laterality: bilateral Lung location: lower lobe of lung Qualified Code(s): J18.9 - Pneumonia, unspecified organism (4) Diastolic heart failure Current Visit: Yes Status: Acute Qualifiers: Heart failure chronicity: acute on chronic Qualified Code(s): I50.33 - Acute on chronic diastolic (congestive) heart failure (5) Respiratory acidosis Current Visit: Yes Status: Resolved (6) Diabetes mellitus Current Visit: Yes Status: Chronic Qualifiers: Diabetes mellitus type: type 2 Diabetes mellitus complication status: with unspecified complications Diabetes mellitus fci insulin use: without long term care social worker use Qualified Code(s): E11.8 - Type 2 diabetes mellitus with unspecified complications (7) Hypertension Current Visit: Yes Status: Chronic Qualifiers: Hypertension type: essential hypertension Qualified Code(s): I10 - Essential (primary) hypertension (8) Hx of rheumatoid arthritis Current Visit: Yes Status: Chronic (9) Hx of major depression Current Visit: Yes Status: Chronic (10) History of CVA in adulthood Current Visit: Yes Status: Chronic (11) History of hypothyroidism Current Visit: Yes Status: Chronic (12) DOMINIK (acute kidney injury) Current Visit: Yes Status: Resolved (13) Nicotine dependence Current Visit: Yes Status: Chronic Qualifiers: Nicotine product type: cigarettes Substance use status: other nicotine- induced disorder Qualified Code(s): F17.218 - Nicotine dependence, cigarettes , with other nicotine-induced disorders (14) KASIE (obstructive sleep apnea) Current Visit: Yes Status: Suspected - Constitutional Vitals: Temp Pulse Resp BP Pulse Ox 98.2 F 64 14 147/79 96 11/22/16 15:02 11/22/16 15:02 11/22/16 15:57 11/22/16 15:02 11/22/16 15:57 Internal Medicine: Result - Labs CBC & Chem 7: 11/22/16 04:52 11/22/16 04:52 Labs: Short CBC 11/22/16 Range/Units 04:52 WBC 9.3 (4.3-11.1) K/mcL Hgb 12.3 (11.5-15.4) g/dL Hct 39.6 (35.3-44.9) % Plt Count 177 (140-400) K/mcL Neutrophils # 7.2 (1.6-8.9) K/mcL BMP 11/22/16 04:52 Sodium 142 Potassium 3.9 Chloride 98 Carbon Dioxide 39 H BUN 41 H Creatinine 0.80 Glucose 115 H Calcium 8.8 - ABG Interpretation ABG results: ABG ABG pH 7.33 pH Units (7.32-7.45) 11/18/16 04:25 ABG pCO2 89 mmHg (35-45) H* 11/18/16 04:25 ABG pO2 65 mmHg (85-104) L 11/18/16 04:25 ABG O2 Saturation 91 % (95-98) L 11/18/16 04:25 - Attending Attestation I examined this patient and reviewed laboratory, imaging and all diagnostic data. My medical decision-making was reviewed with Ralph Roper - Resident Physician. I agree with the documented findings, disposition and treatment plan as described above.
[2016-11-22] MEDS: predniSONE 20 MG TABLET PO SCH (08:47)
[2016-11-22] MEDS: lamoTRIgine 100 MG TABLET PO SCH (08:47)
[2016-11-22] MEDS: BuPROPion SR (12 HR) 100 MG TABLET PO SCH ×2 (08:48→21:56)
[2016-11-22] MEDS: Furosemide 20 MG TABLET PO SCH ×2 (08:48→16:11)
[2016-11-22] MEDS: Gabapentin 100 MG CAPSULE PO SCH ×4 (08:48→21:56)
[2016-11-22] MEDS: Pantoprazole 40 MG VIAL IVP SCH (08:49)
[2016-11-22] MEDS: amLODIPine 5 MG TABLET PO SCH (08:49)
[2016-11-22] MEDS: Insulin LISPRO 300 UNITS/3 ML VIAL SQ SCH ×4 (08:51→21:57)
[2016-11-22] MEDS ORDERED: Levofloxacin 750 MG/150 ML 750 MG/150 ML BAG IVPB SCH (09:00)
[2016-11-22] MEDS ORDERED: Nicotine 7 MG PATCH.TD24 TD PRN (10:25)
[2016-11-22] MEDS: Insulin DETEMIR 100 UNIT/ML X5UNITS SQ SCH ×2 (10:43→22:19)
[2016-11-22] MEDS: *HR* HYDROcodone/Acet 5/325 mg TABLET PO PRN (12:43)
[2016-11-23] MEDS: Ipratropium/Albuterol Neb 3 ML IH SCH ×7 (00:05→23:06)
[2016-11-23] MEDS: *HR* Heparin 5,000 UNIT/ML VIAL SQ SCH ×4 (00:44→23:34)
[2016-11-23] MEDS: *HR* HYDROcodone/Acet 5/325 mg TABLET PO PRN ×2 (05:02→20:33)
[2016-11-23] MEDS: Insulin LISPRO 300 UNITS/3 ML VIAL SQ SCH ×4 (07:44→20:28)
[2016-11-23] MEDS: Budesonide/Formoterol 160/4.5 MDI IH SCH ×2 (08:22→19:59)
--- NOTE | 2016-11-23 08:49 | Internal Med Progress Note ---
<Ralph Courtney - Last Filed: 11/23/16 10:00> Date of Encounter: 11/23/16 Time of Encounter: 08:49 - Assessment and plan (1) Acute and chronic respiratory failure ([id number]) Current Visit: Yes Status: Acute Assessment and plan: 71-year-old female with a history of COPD on 2.5 L home oxygen presented with chief complaint of shortness of breath worsening over the past 3 days. Patient was somnolent on presentation. Initial ABG showed respiratory acidosis and hypercapnia with hypoxia. Patient failed BiPAP trial and required mechanical ventilation to correct her respiratory acidosis and lethargy. Chest x-ray showed worsening left lower lobe atelectasis, emphysema and pulmonary edema. Patient improved and was extubated successfully and transition to BIPAP. Transfer to the medical floor on 11/20. Secondary to PNA, new onset diastolic HF, and suspected OHS/KASIE. Respiratory panel negative. Sputum culture negative. echocardiogram shows LVEF 65% with mild diastolic dysfunction and mild tricuspid regurg, moderate pulmonary hypertension. troponin WNL. Lower extremity doppler negative. Patient is improving but still requiring more oxygen than prescribed at home. Currently saturating 90% on 5L high flow cannula. Will continue to titrate down oxygen as tolerated to keep SaO2 88-90%. May consider switching to nasal cannula this afternoon. Continue prednisone, albuterol, duonebs, and symbicort. Possible discharge tomorrow. PT recommends SNF, but patient refuses. PT to reevaluate later today. Qualifiers: Respiratory failure complication: hypoxia and hypercapnia Qualified Code(s) : J96.21 - Acute and chronic respiratory failure with hypoxia; J96.22 - Acute and chronic respiratory failure with hypercapnia (2) Acute exacerbation of chronic obstructive airways disease Current Visit: Yes Status: Acute Assessment and plan: plan as above. (3) PNA (pneumonia) Current Visit: Yes Status: Acute Assessment and plan: CXR on 11/17 showed worsening left lower lobe pneumonia or atelectasis. Sputum culture only showed normal upper respiratory tract amber. Urine culture is negative for legionella and S. pneumo. Patient received 5 days of Levaquin 750 mg for treatment of CAP. Qualifiers: Pneumonia type: due to unspecified organism Laterality: bilateral Lung location: lower lobe of lung Qualified Code(s): J18.9 - Pneumonia, unspecified organism (4) Diastolic heart failure Current Visit: Yes Status: Acute Assessment and plan: ECHO showed LVEF of 65% and mild LV dysfunction along with mild tricuspid regurg and moderate pulmonary hypertension. Fluid restriction. low dose lasix 20mg bid. Qualifiers: Heart failure chronicity: acute on chronic Qualified Code(s): I50.33 - Acute on chronic diastolic (congestive) heart failure (5) Respiratory acidosis Current Visit: Yes Status: Resolved Assessment and plan: resolved. Secondary to acute exacerbation of chronic respiratory failure. (6) Diabetes mellitus Current Visit: Yes Status: Chronic Assessment and plan: accucheck of 88 this morning. Will continue current medications and continue to monitor. Qualifiers: Diabetes mellitus type: type 2 Diabetes mellitus complication status: with unspecified complications Diabetes mellitus terminal system operator insulin use: without terminal system operator use Qualified Code(s): E11.8 - Type 2 diabetes mellitus with unspecified complications (7) Nicotine dependence Current Visit: Yes Status: Chronic Assessment and plan: Nicotine patch available. Qualifiers: Nicotine product type: cigarettes Substance use status: other nicotine- induced disorder Qualified Code(s): F17.218 - Nicotine dependence, cigarettes , with other nicotine-induced disorders (8) Hypertension Current Visit: Yes Status: Chronic Assessment and plan: Blood pressure is elevated 159/77. Patient is on Norvasc 10mg PO daily, Atenolol 25 mg PO daily, and Lopressor 5 mg IVP Q6HR prn Continue to monitor. Qualifiers: Hypertension type: essential hypertension Qualified Code(s): I10 - Essential (primary) hypertension (9) Hx of rheumatoid arthritis Current Visit: Yes Status: Chronic Assessment and plan: Methotrexate being held due to pneumonia and acute on chronic respiratory failure. (10) Hx of major depression Current Visit: Yes Status: Chronic Assessment and plan: Continue home medications (11) History of hypothyroidism Current Visit: Yes Status: Chronic Assessment and plan: Continue home medication (12) DOMINIK (acute kidney injury) Current Visit: Yes Status: Resolved Assessment and plan: Resolved. Continue to monitor and avoid nephrotoxic medications (13) History of CVA in adulthood Current Visit: Yes Status: Chronic (14) KASIE (obstructive sleep apnea) Current Visit: Yes Status: Suspected Assessment and plan: Bipap tolerated, using during sleep. sleep study as outpatient. (15) Constipation Current Visit: Yes Status: Acute Assessment and plan: Reports no bowel movement since admission. Miralax scheduled. Dulcolax will be added. Mag Citrate will also be added. Reassess tomorrow. Qualifiers: Constipation type: unspecified constipation type Qualified Code(s): K59.00 - Constipation, unspecified (16) DVT prophylaxis Current Visit: Yes Status: Acute Assessment and plan: Heparin SQ - Subjective Interval history: 71 year old female admitted for Acute on chronic respiratory failure, COPD exacerbation and pneumonia states that she is feeling pretty well today. Patient was eating breakfast again this morning upon entering the room. She reports continued improvement today and states that she feels a little better each day. Patient is still requiring 5L of O2 and is saturating at 90%. Patient is on 3L at home. She still admits to not having a bowel movement even after receiving Miralax yesterday. She reports no new or worsening symptoms today. She denies fever, headache, chest pain, SOB, abdominal pain, diarrhea, urinary symptoms, calf tenderness. - Constitutional Vitals: Temp Pulse Resp BP Pulse Ox 98.1 F 61 18 159/77 90 L 11/23/16 07:52 11/23/16 07:52 11/23/16 07:52 11/23/16 07:52 11/23/16 07:52 General appearance: Present: cooperative, A&O X 3, pleasant, obese, answers questions appropriately. Absent: no acute distress - Head Head exam: Present: atraumatic, normal inspection, normocephalic - Eye Eye exam: Present: EOMI, normal appearance, PERRL. Absent: scleral icterus Pupils: Present: PERRL - Neck Neck exam general surgery: Present: normal inspection, supple, trachea midline. Absent: lymphadenopathy - Respiratory Respiratory exam: Present: decreased breath sounds, wheezes (mild end expiratory wheeze). Absent: accessory muscle use, rales, rhonchi - Cardiovascular Cardiovascular exam: Present: RRR, +S1, +S2. Absent: diastolic murmur, gallop, rubs, systolic murmur - GI/Abdominal GI/Abdominal exam: Present: normal bowel sounds, soft, no peritoneal signs. Absent: distended, guarding, rebound, tenderness - Extremities Exam Extremities exam: Present: full ROM, pedal edema (1+), warm. Absent: calf tenderness, tenderness - Neurological Exam Neurological exam: Present: alert, CN II-XII intact, oriented X3, no focal deficits, strengths equal and symetr throughout. Absent: facial droop, speech deficit - Skin Skin exam: Present: dry, intact, normal color, warm. Absent: erythema, pallor, rash Internal Medicine: Result - Labs CBC & Chem 7: 11/22/16 04:52 11/22/16 04:52 - ABG Interpretation ABG results: ABG ABG pH 7.33 pH Units (7.32-7.45) 11/18/16 04:25 ABG pCO2 89 mmHg (35-45) H* 11/18/16 04:25 ABG pO2 65 mmHg (85-104) L 11/18/16 04:25 ABG O2 Saturation 91 % (95-98) L 11/18/16 04:25 Consult Discharge Plan - Plan Referrals: Jose G Toure MD [Partnered Physician] - 11/30/16 1:00 pm <Christos Cheek H - Last Filed: 11/24/16 10:12> - Constitutional Vitals: Temp Pulse Resp BP Pulse Ox 98.4 F 67 20 156/77 89 L 11/24/16 07:22 11/24/16 07:22 11/24/16 08:04 11/24/16 07:22 11/24/16 08:04 Internal Medicine: Result - Labs CBC & Chem 7: 11/22/16 04:52 11/22/16 04:52 - ABG Interpretation ABG results: ABG ABG pH 7.33 pH Units (7.32-7.45) 11/18/16 04:25 ABG pCO2 89 mmHg (35-45) H* 11/18/16 04:25 ABG pO2 65 mmHg (85-104) L 11/18/16 04:25 ABG O2 Saturation 91 % (95-98) L 11/18/16 04:25 - Attending Attestation acute on chronic hypoxic hypercapnic resp failure 2ry to acute COPD exacerbation due to community acquired pneumonia in combination with acute diastolic CHF exacerbation s/p intubation and extubation Oxygen dependant / BIPAP at home continue Prednisone and taper Lasix 20 mg PO BID started levaquin on 11/15 and completed treatment on 11/22 Methotrexate ( for RA) on hold due to infection ARF resolved still desaturating at 86% on 4 Lt I examined this patient and my medical decision-making was reviewed with the PACKAGE MAKER/PA/Advanced Practice Nurse/Resident Physician. I agree with the documented findings, disposition and treatment plan as described except to the extent set forth below. <Shy Izquierdo E - Last Filed: 11/24/16 19:39> Date of Encounter: 11/23/16 Time of Encounter: 09:48 - Assessment and plan (1) Acute and chronic respiratory failure ([id number]) Current Visit: Yes Status: Acute Qualifiers: Respiratory failure complication: hypoxia and hypercapnia Qualified Code(s) : J96.21 - Acute and chronic respiratory failure with hypoxia; J96.22 - Acute and chronic respiratory failure with hypercapnia (2) Acute exacerbation of chronic obstructive airways disease Current Visit: Yes Status: Acute (3) PNA (pneumonia) Current Visit: Yes Status: Acute Qualifiers: Pneumonia type: due to unspecified organism Laterality: bilateral Lung location: lower lobe of lung Qualified Code(s): J18.9 - Pneumonia, unspecified organism (4) Diastolic heart failure Current Visit: Yes Status: Acute Qualifiers: Heart failure chronicity: acute on chronic Qualified Code(s): I50.33 - Acute on chronic diastolic (congestive) heart failure (5) Respiratory acidosis Current Visit: Yes Status: Resolved (6) Diabetes mellitus Current Visit: Yes Status: Chronic Qualifiers: Diabetes mellitus type: type 2 Diabetes mellitus complication status: with unspecified complications Diabetes mellitus terminal system operator insulin use: without terminal system operator use Qualified Code(s): E11.8 - Type 2 diabetes mellitus with unspecified complications (7) Hypertension Current Visit: Yes Status: Chronic Qualifiers: Hypertension type: essential hypertension Qualified Code(s): I10 - Essential (primary) hypertension (8) Hx of rheumatoid arthritis Current Visit: Yes Status: Chronic (9) Hx of major depression Current Visit: Yes Status: Chronic (10) History of CVA in adulthood Current Visit: Yes Status: Chronic (11) History of hypothyroidism Current Visit: Yes Status: Chronic (12) DOMINIK (acute kidney injury) Current Visit: Yes Status: Resolved (13) Nicotine dependence Current Visit: Yes Status: Chronic Qualifiers: Nicotine product type: cigarettes Substance use status: other nicotine- induced disorder Qualified Code(s): F17.218 - Nicotine dependence, cigarettes , with other nicotine-induced disorders (14) KASIE (obstructive sleep apnea) Current Visit: Yes Status: Suspected - Constitutional Vitals: Temp Pulse Resp BP Pulse Ox 98.5 F 72 18 138/74 91 L 11/24/16 14:52 11/24/16 14:52 11/24/16 16:04 11/24/16 16:04 11/24/16 16:04 Internal Medicine: Result - Labs CBC & Chem 7: 11/22/16 04:52 11/22/16 04:52 - ABG Interpretation ABG results: ABG ABG pH 7.33 pH Units (7.32-7.45) 11/18/16 04:25 ABG pCO2 89 mmHg (35-45) H* 11/18/16 04:25 ABG pO2 65 mmHg (85-104) L 11/18/16 04:25 ABG O2 Saturation 91 % (95-98) L 11/18/16 04:25 - Attending Attestation Please disregard Dr Shields's attestation. This progress note is for 11/23/16, Dr Ralph Courtney and myself Dr Toan Kitchen. Late entry for a patient I examined, reviewed laboratory, imaging and all diagnostic data on 11/23/16. My medical decision-making was reviewed with Vidal Ricci - Resident Physician. I agree with the documented findings, disposition and treatment plan as described.
[2016-11-23] MEDS: Gabapentin 100 MG CAPSULE PO SCH ×4 (09:47→20:29)
[2016-11-23] MEDS: Furosemide 20 MG TABLET PO SCH ×2 (09:48→17:14)
[2016-11-23] MEDS: lamoTRIgine 100 MG TABLET PO SCH (09:49)
[2016-11-23] MEDS: amLODIPine 5 MG TABLET PO SCH (09:50)
[2016-11-23] MEDS: predniSONE 20 MG TABLET PO SCH (09:50)
[2016-11-23] MEDS: BuPROPion SR (12 HR) 100 MG TABLET PO SCH ×2 (09:51→20:29)
[2016-11-23] MEDS: Insulin DETEMIR 100 UNIT/ML X5UNITS SQ SCH ×2 (09:59→20:29)
[2016-11-24] MEDS: Ipratropium/Albuterol Neb 3 ML IH SCH ×5 (03:41→20:53)
[2016-11-24] MEDS: amLODIPine 5 MG TABLET PO SCH (07:48)
[2016-11-24] MEDS: BuPROPion SR (12 HR) 100 MG TABLET PO SCH ×2 (07:49→19:56)
[2016-11-24] MEDS: lamoTRIgine 100 MG TABLET PO SCH (07:49)
[2016-11-24] MEDS: predniSONE 20 MG TABLET PO SCH (07:49)
[2016-11-24] MEDS: Gabapentin 100 MG CAPSULE PO SCH ×4 (07:49→19:55)
[2016-11-24] MEDS: Furosemide 20 MG TABLET PO SCH ×2 (07:50→17:06)
[2016-11-24] MEDS: *HR* Heparin 5,000 UNIT/ML VIAL SQ SCH ×3 (07:50→23:26)
[2016-11-24] MEDS: Insulin LISPRO 300 UNITS/3 ML VIAL SQ SCH ×4 (07:59→21:31)
[2016-11-24] MEDS: Budesonide/Formoterol 160/4.5 MDI IH SCH ×2 (08:01→20:56)
[2016-11-24] MEDS: Insulin DETEMIR 100 UNIT/ML X5UNITS SQ SCH ×2 (11:56→21:31)
--- NOTE | 2016-11-24 16:35 | Podiatry Progress Note ---
Date of Encounter: 11/23/16 Time of Encounter: 12:30 - Assessment and Plan (1) Diabetes mellitus Current Visit: Yes Status: Chronic Qualifiers: Diabetes mellitus type: type 2 Diabetes mellitus complication status: with unspecified complications Diabetes mellitus [facility] insulin use: without long term care social worker use Qualified Code(s): E11.8 - Type 2 diabetes mellitus with unspecified complications (2) Subungual hematoma of toe of left foot Current Visit: Yes Status: Acute Left great toe nail likely to auto avulse. Will debride toe nails once subungual hematoma has dried to the left great toe. No evidence of bacterial infection. Will continue to monitor left great toe while in the hospital and may be able to debride toe nails based on maturity of subungual hematoma. Recommend patient f/u in Podiatry with in one week of discharge from the hospital to have toenails debrided. Qualifiers: Encounter type: initial encounter Qualified Code(s): S90.222A - Contusion of left lesser toe(s) with damage to nail, initial encounter Subjective Principal diagnosis: Acute on chronic respiratory failure Interval history: Podiatry was consulted on 11/19/2016 for subungual hematoma left great toe. Patient was evaluated by Dr. Arreola and diagnosed with a subungual hematoma left great toe with out bacterial infection and advanced onychomycosis to nails #1 through #5 bilaterally. Patient is lying bed. No c/o pain to the left great toe. Denies fever or chills. Objective - Vital Signs Vital Signs: Vital Signs Temp Pulse Resp BP Pulse Ox 11/24/16 14:52 98.5 F 72 20 138/74 91 L 11/24/16 11:34 18 144/77 94 L 11/24/16 11:14 98.3 F 71 18 144/77 92 L 11/24/16 08:04 20 89 L 11/24/16 07:22 98.4 F 67 20 156/77 92 L 11/24/16 04:37 98.0 F 67 25 150/91 90 L 11/24/16 03:41 20 89 L 11/23/16 23:24 97.2 F L 64 24 149/76 91 L 11/23/16 23:06 23 92 L 11/23/16 19:59 16 88 L 11/23/16 18:54 98.3 F 69 22 138/71 95 03/28/17 18:30 20 88 L Intake and Output 11/24/16 11/24/16 11/24/16 07:59 15:59 23:59 Intake Total 0 / 0 600 / 600 Output Total 300 / 300 800 / 800 Balance -300 / -300 -200 / -200 Intake: Oral 0 / 0 600 / 600 Output: Urine 300 / 300 800 / 800 Other: Meal Lunch Percent of Meal Consumed 100% Weight 87.634 kg Blood Glucose* 111 394 258 Patient Weight 11/24/16 23:59 Weight 87.634 kg - Exam Exam: Dermatologic: NAIL PATHOLOGY: Nails #1 through #5 bilaterally are thick, discolored, and mycotic. No signs of bacterial infection.. Large subungual hematoma to the left great toe, no erythema, no active drainage, no lymphangitis, no pus, no warmth, no fluctuance. ULCER: No signs of ulceration or open wound of either foot.. Podiatry General Exam: General appearance: alert awake oriented X 3. Calm and pleasant, no acute distress.. Vascular: Pedal pulses +1/4 DP/PT , No evidence of cyanosis, pallor or rubor, Edema graded at 1+/4, Skin temperature warm, Homans Sign negative, capillary refill time is immediate to digits.. Neurologic: Intact sensation with light touch. Musculoskeletal: Muscle strength 5/5 and equal bilaterally.. Integument: Skin with decreased turgor, decreased subcutaneous tissue, skin thin and shiny with trophic changes associated with comorbidities as described in history. - Lab Result Diagrams: 11/22/16 04:52 11/22/16 04:52 Labs: Abnormal lab results MCHC 31.1 g/dL (31.6-35.5) L 11/22/16 04:52 Immature Gran % 4.2 % (0-4) H 11/22/16 04:52 ABG pCO2 89 mmHg (35-45) H* 11/18/16 04:25 ABG pO2 65 mmHg (85-104) L 11/18/16 04:25 ABG HCO3 46.9 mEQ/L (21-27) H 11/18/16 04:25 ABG Total CO2 49.6 mEq/L (20-26) H 11/18/16 04:25 ABG O2 Saturation 91 % (95-98) L 11/18/16 04:25 ABG Base Excess 17.0 mEq/L (-2.0 to 3.0) H 11/18/16 04:25 Carbon Dioxide 39 mEq/L (19-29) H 11/22/16 04:52 BUN 41 mg/dL (7-20) H 11/22/16 04:52 BUN/Creatinine Ratio 51 (6-26) H 11/22/16 04:52 Glucose 115 mg/dL (70-99) H 11/22/16 04:52 POC Glucose 238 (58-89) H 11/23/16 20:12 Calculated Osmolality 305 (280-300) H 11/22/16 04:52 Ionized Calcium 1.09 mmol/L (1.15-1.35) L 11/19/16 14:18 B-Natriuretic Peptide 106 pg/mL (0-100) H 11/16/16 16:09 Albumin 3.0 g/dL (3.5-5.0) L 11/17/16 03:43 Albumin/Globulin Ratio 0.9 (1.1-2.2) L 11/17/16 03:43 Urine Clarity Cloudy (Clear) A 11/16/16 23:55 Urine Protein >=300 mg/dL (Neg-Trace) H 11/16/16 23:55 Urine Glucose (UA) 100 mg/dL (Normal) H 11/16/16 23:55 Urine Blood Moderate (Negative) H 11/16/16 23:55 Urine Bilirubin Moderate (Negative) H 11/16/16 23:55 Urine Microscopic RBC 3-5 per hpf (0-3) H 11/16/16 23:55 Urine Microscopic WBC 5-15 per hpf (0-3) H 11/16/16 23:55 Ur Squamous Epith Cells Many per lpf (None-Few) H 11/16/16 23:55 Urine Bacteria Many per hpf (None-Few) H 11/16/16 23:55 Hyaline Casts Many per lpf (None-Few) H 11/16/16 23:55 Granular Casts Few per lpf (None Seen) H 11/16/16 23:55 WBC Casts Moderate per lpf (None Seen) H 11/16/16 23:55 Urine Mucus Many (Few) H 11/16/16 23:55 Urine Yeast Few per hpf (None Seen) H 11/16/16 23:55 Ur Culture Indicated? YES (NO) A 11/16/16 23:55 Protein/Creatinin Ratio 0.26 mg/mg (0-0.20) H 11/18/16 11:17 Urine Total Protein 28 mg/dL (1-14) H 11/18/16 11:17 Consult Discharge Plan - Plan Referrals: Jose G Toure MD [Partnered Physician] - 11/30/16 1:00 pm
[2016-11-24] MEDS: *HR* HYDROcodone/Acet 5/325 mg TABLET PO PRN (19:55)
[2016-11-25] MEDS: Ipratropium/Albuterol Neb 3 ML IH SCH ×6 (00:26→15:41)
[2016-11-25] MEDS: Budesonide/Formoterol 160/4.5 MDI IH SCH (07:37)
--- NOTE | 2016-11-25 08:57 | Internal Med Progress Note ---
Date of Encounter: 11/24/16 Time of Encounter: 08:53 - Assessment and plan (1) Acute respiratory failure with hypoxia and hypercapnia Current Visit: Yes Status: Acute Assessment and plan: acute on chronic hypoxic hypercapnic resp failure 2ry to acute COPD exacerbation due to community acquired pneumonia in combination with acute diastolic CHF exacerbation s/p intubation and extubation Oxygen dependant / BIPAP at home continue Prednisone and taper Lasix 20 mg PO BID started levaquin on 11/15 and completed treatment on 11/22 Methotrexate ( for RA) on hold due to infection ARF resolved still desaturating at 86% on 4 Lt (2) Respiratory acidosis Current Visit: Yes Status: Resolved Assessment and plan: resolved. Secondary to acute exacerbation of chronic respiratory failure. (3) Pulmonary edema Current Visit: Yes Status: Resolved Qualifiers: Chronicity: acute Qualified Code(s): J81.0 - Acute pulmonary edema (4) Diabetes mellitus Current Visit: Yes Status: Chronic Assessment and plan: continue Levemir 20 in am and 22 units HS ISS. Qualifiers: Diabetes mellitus type: type 2 Diabetes mellitus complication status: with unspecified complications Diabetes mellitus prison insulin use: without brand representative use Qualified Code(s): E11.8 - Type 2 diabetes mellitus with unspecified complications (5) Nicotine dependence Current Visit: Yes Status: Chronic Assessment and plan: Nicotine patch available. Qualifiers: Nicotine product type: cigarettes Substance use status: other nicotine- induced disorder Qualified Code(s): F17.218 - Nicotine dependence, cigarettes , with other nicotine-induced disorders (6) Hypertension Current Visit: Yes Status: Chronic Assessment and plan: Continue Norvasc 10mg PO daily, Atenolol 25 mg PO daily, losartan 50 mg daily and Lopressor 5 mg IVP Q6HR prn Continue to monitor. Qualifiers: Hypertension type: essential hypertension Qualified Code(s): I10 - Essential (primary) hypertension (7) History of CVA in adulthood Current Visit: Yes Status: Chronic (8) History of hypothyroidism Current Visit: Yes Status: Chronic Assessment and plan: Continue home medication (9) Diastolic heart failure Current Visit: Yes Status: Acute Assessment and plan: ECHO showed LVEF of 65% and mild LV dysfunction along with mild tricuspid regurg and moderate pulmonary hypertension. Fluid restriction. low dose lasix 20mg bid. Qualifiers: Heart failure chronicity: acute on chronic Qualified Code(s): I50.33 - Acute on chronic diastolic (congestive) heart failure (10) PNA (pneumonia) Current Visit: Yes Status: Acute Assessment and plan: CXR on 11/17 showed worsening left lower lobe pneumonia or atelectasis. Sputum culture only showed normal upper respiratory tract amber. Urine culture is negative for legionella and S. pneumo. Completed Levaquin for treatment of CAP. Qualifiers: Pneumonia type: due to unspecified organism Laterality: bilateral Lung location: lower lobe of lung Qualified Code(s): J18.9 - Pneumonia, unspecified organism - Time Spent With Patient Greater than 35 minutes - Subjective Interval history: 71 year old female admitted for Acute on chronic respiratory failure, COPD exacerbation and pneumonia stated that she is feeling better Still requiring 5L of O2 and is saturating at 90%. Patient was on 3L at home. She still admitted to not having a bowel movement even after receiving Miralax . She reports no new or worsening symptoms today. She denied fever, headache, chest pain, SOB, abdominal pain, diarrhea, urinary symptoms, calf tenderness. Still desaturating down to 84% - Constitutional Vitals: Temp Pulse Resp BP Pulse Ox 98.1 F 71 20 156/82 93 L 11/25/16 07:41 11/25/16 07:41 11/25/16 07:41 11/25/16 07:41 11/25/16 07:41 General appearance: Present: cooperative, A&O X 3, pleasant, obese, answers questions appropriately. Absent: no acute distress - Head Head exam: Present: atraumatic, normocephalic - Eye Eye exam: Present: PERRL, conjuntiva pink, sclera anicteric Pupils: Present: PERRL - Neck Neck exam general surgery: Present: supple, trachea midline. Absent: lymphadenopathy - Respiratory Respiratory exam: Present: CTAB, wheezes. Absent: accessory muscle use, rales, rhonchi - Cardiovascular Cardiovascular exam: Present: RRR, +S1, +S2. Absent: diastolic murmur, gallop, rubs, systolic murmur - GI/Abdominal GI/Abdominal exam: Present: normal bowel sounds, soft, no peritoneal signs. Absent: distended, tenderness - Extremities Exam Extremities exam: Present: warm, radial pulses palpable and symetrical. Absent : calf tenderness, cyanotic, pedal edema - Neurological Exam Neurological exam: Present: CN II-XII intact, oriented X3, no focal deficits. Absent: pronater drift, facial droop, speech deficit - Skin Skin exam: Present: dry, intact Internal Medicine: Result - Labs CBC & Chem 7: 11/22/16 04:52 11/22/16 04:52 - ABG Interpretation ABG results: ABG ABG pH 7.33 pH Units (7.32-7.45) 11/18/16 04:25 ABG pCO2 89 mmHg (35-45) H* 11/18/16 04:25 ABG pO2 65 mmHg (85-104) L 11/18/16 04:25 ABG O2 Saturation 91 % (95-98) L 11/18/16 04:25 Consult Discharge Plan - Plan Referrals: Jose G Toure MD [Partnered Physician] - 11/30/16 1:00 pm
[2016-11-25] MEDS: BuPROPion SR (12 HR) 100 MG TABLET PO SCH (09:00)
[2016-11-25] MEDS: Insulin LISPRO 300 UNITS/3 ML VIAL SQ SCH ×2 (09:00→11:51)
[2016-11-25] MEDS: *HR* Heparin 5,000 UNIT/ML VIAL SQ SCH (09:00)
[2016-11-25] MEDS: amLODIPine 5 MG TABLET PO SCH (09:00)
[2016-11-25] MEDS: lamoTRIgine 100 MG TABLET PO SCH (09:01)
[2016-11-25] MEDS: Insulin DETEMIR 100 UNIT/ML X5UNITS SQ SCH (09:01)
[2016-11-25] MEDS: Furosemide 20 MG TABLET PO SCH (09:01)
[2016-11-25] MEDS: Gabapentin 100 MG CAPSULE PO SCH (09:01)
--- NOTE | 2016-11-25 09:14 | Discharge Summary ---
Date of Encounter: 11/24/16 Time of Encounter: 09:12 - Discharge Diagnosis (1) Acute respiratory failure with hypoxia and hypercapnia Priority: Primary Status: Acute Comments: acute on chronic hypoxic hypercapnic resp failure 2ry to acute COPD exacerbation due to community acquired pneumonia in combination with acute diastolic CHF exacerbation s/p intubation and extubation (2) Respiratory acidosis Priority: Secondary Status: Resolved (3) Pulmonary edema Priority: Secondary Status: Resolved Qualifiers: Chronicity: acute Qualified Code(s): J81.0 - Acute pulmonary edema (4) Diabetes mellitus Priority: Secondary Status: Chronic Qualifiers: Diabetes mellitus type: type 2 Diabetes mellitus complication status: with unspecified complications Diabetes mellitus penitentiary insulin use: without marine oil terminal superintendent use Qualified Code(s): E11.8 - Type 2 diabetes mellitus with unspecified complications (5) Nicotine dependence Priority: Secondary Status: Chronic Qualifiers: Nicotine product type: cigarettes Substance use status: other nicotine- induced disorder Qualified Code(s): F17.218 - Nicotine dependence, cigarettes , with other nicotine-induced disorders (6) Hypertension Priority: Secondary Status: Chronic Qualifiers: Hypertension type: essential hypertension Qualified Code(s): I10 - Essential (primary) hypertension (7) History of CVA in adulthood Priority: Secondary Status: Chronic (8) History of hypothyroidism Priority: Secondary Status: Chronic (9) Diastolic heart failure Priority: Secondary Status: Acute Qualifiers: Heart failure chronicity: acute on chronic Qualified Code(s): I50.33 - Acute on chronic diastolic (congestive) heart failure (10) PNA (pneumonia) Priority: Primary Status: Acute Qualifiers: Pneumonia type: due to unspecified organism Laterality: bilateral Lung location: lower lobe of lung Qualified Code(s): J18.9 - Pneumonia, unspecified organism - Discharge Medications Prescriptions: Furosemide [Lasix] 20 mg PO DAILY #30 tablet LORazepam [Ativan] 1 mg PO QID PRN #30 tablet PRN Reason: shortness of breath anxiety PredniSONE 10 mg PO DAILY 12 Days Home Medications: Aclidinium [place] [Tudorza Pressair] 400 mcg IH BID 11/16/16 [History] Albuterol Neb [Proventil Neb] 2.5 mg IH Q4H PRN 11/16/16 [History] Albuterol Sulfate [Ventolin Hfa] 2 puff IH Q4H PRN 11/16/16 [History] Alendronate Sodium [Fosamax] 70 mg PO QWEEK 11/16/16 [History] Amlodipine [Norvasc] 5 mg PO DAILY 11/16/16 [History] Aspirin Enteric Coated [Aspirin EC] 325 mg PO DAILY 11/16/16 [History] Atenolol [Tenormin] 25 mg PO DAILY 11/16/16 [History] BuPROPion SR (12 HR) [Wellbutrin SR] 200 mg PO BID 11/16/16 [History] Budesonide/Formoterol 160/4.5 [Symbicort 160/4.5] 2 puff IH BIDR 11/16/16 [ History] Ergocalciferol (VITAMIN D2) [Vitamin D2] 50,000 unit PO QWEEK 11/16/16 [History] Escitalopram [Lexapro] 20 mg PO DAILY 11/16/16 [History] Folic Acid 1 mg PO DAILY 11/16/16 [History] Gabapentin [Neurontin] 300 mg PO BID 11/16/16 [History] Ipratropium/Albuterol Neb [Duoneb] 3 ml IH Q6H PRN 11/16/16 [History] Lamotrigine [Lamictal] 100 mg PO DAILY 11/16/16 [History] Lansoprazole [Prevacid] 30 mg PO DAILY 11/16/16 [History] Levothyroxine Sodium [Synthroid] 200 mcg PO QAM 11/16/16 [History] Linagliptin [Tradjenta] 5 mg PO DAILY 11/16/16 [History] Losartan/Hydrochlorothiazide [Hyzaar 100-25 Tablet] 1 each PO DAILY 11/16/16 [ History] Lovastatin [Mevacor] 20 mg PO QPM 11/16/16 [History] Metformin HCl [Metformin HCl ER] 1,500 mg PO DAILY 11/16/16 [History] Methotrexate [Otrexup] 12.5 mg PO QWEEK 11/16/16 [History] Potassium Chloride [Klor-Con 10] 10 meq PO TID 11/16/16 [History] Furosemide [Lasix] 20 mg PO DAILY #30 tablet 11/25/16 [Rx] LORazepam [Ativan] 1 mg PO QID PRN #30 tablet 11/25/16 [Rx] PredniSONE 10 mg PO DAILY 12 Days 11/25/16 [Rx] Allergies/Adverse Reactions: Allergies No Known Allergies Allergy (Verified 04/01/16 11:12) Date of admission: 11/16/16 18:01 Primary care physician: PCP NO Consults: 11/16/16 19:59 Consult to Pastoral Services [CONS] Routine Comment: Consult to Crossbow [employer] [CONS] Routine Reason for SW Consult: Discharge planning 11/16/16 20:47 Consult to Pulmonology [CONS] Routine Consulting Provider: [facility] [place] Reason for Consult: Acute on chronic resp failure Call Completed: No 11/17/16 11:04 consult to legal counsel [Consult to Nutrition] [CONS] Routine Comment: Consulting Provider: NUTRITION Reason for Dietary Consult: TF Start and Manage 11/19/16 10:58 Consult to Podiatry [CONS] Routine Consulting Provider: [facility] Reason for Consult: brusing of left great toe. Call Completed: Yes 11/20/16 09:13 Consult to Occupational Therapy [CONS] Routine Comment: Evaluate, develop and implement POC Consult to Physical Therapy [CONS] Routine Comment: Evaluate, develop and implement POC - Patient Status Disposition: Home Health Service Condition: Fair Overall status at discharge: patient is progressing back to baseline - Discharge Instructions Follow Up With: Jose G Toure MD [Partnered Physician] - 11/30/16 1:00 pm Additional Instructions: Follow with primary care physician within the next 7 days. Complete prednisone taper. COntinue Oxygen at home, quit smoking , follow with pulmonary service within the next 3 weeks. Continue Lasix, Keep oxygen saturation between 88 and 92% - Diet and Activity Activity: increase activity as tolerated, wear oxygen at all times Diet: diabetic diet Hospital course: Ms. Jhaveri is a 71 year old female With Past medical history significant for COPD, chronic respiratory failure on home oxygen 3 Lt, current smoker, diabetes mellitus, hyperlipidemia, hypertension, arthritis (on methotrexate), degenerative disc disease. Upon admission the patient was somnolent and not responding to verbal commands. Patients daughters was at the bedside and was able to give some gentle details. Patient apparently was feeling short of breath for the last 3 days prior to admission and was gradually worsening. She was increasingly somnolent. She had a cough and minimal sputum production. No fevers reported. No chest pain reported. The daughter was concerned about her shortness of breath and mental status and called EMS. Per the ER note , patient was apparently saturating at about 70%, on 2.5 LPM (her home O2). Her Oxygen saturation saturations apparently improved to 88% on 6 L of oxygen and 100% on nonrebreather. She was evaluated in the emergency department and was noted to have respiratory acidosis with significant CO2 retention. She was started on BiPAP therapy and was given solumedrol and admitted to the hospitalist service. ABG showed respiratory acidosis with pH of 7.18 and PCO2 of 123, which was not significantly improved from prior ABG. Hence pt was intubated and started on mechanical ventilation. Discussed the details with the patients daughter who is at the bedside and she was agreeable for intubation. CXR on 11/17 showed worsening left lower lobe pneumonia or atelectasis. Sputum culture only showed normal upper respiratory tract amber. Urine was negative for legionella and S. pneumo. Completed Levaquin 7 days, started levaquin on 11/15 and completed treatment on Was diagnosed with acute on chronic hypoxic hypercapnic resp failure 2ry to acute COPD exacerbation due to community acquired pneumonia in combination with acute diastolic CHF exacerbation s/p intubation and extubation Oxygen dependant / BIPAP at home continue Prednisone taper Lasix 20 mg PO daily Methotrexate ( for RA) on hold due to infection ECHO showed LVEF of 65% and mild LV dysfunction along with mild tricuspid regurg and moderate pulmonary hypertension. ARF resolved , creat was 1.55 , now 0.8. Developed steroid induced hyperglycemia. Time spent discussing smoking cessation with patient: 3 to 10 minutes - Time Spent with Patient Total time spent providing and/or coordinating discharge services: Greater than 30 minutes (40 min) - Constitutional Vitals: Temp Pulse Resp BP Pulse Ox 98.1 F 71 20 156/82 93 L 11/25/16 07:41 11/25/16 07:41 11/25/16 07:41 11/25/16 07:41 11/25/16 07:41 General appearance: Present: cooperative, A&O X 3, pleasant, obese, answers questions appropriately. Absent: no acute distress - Head Head exam: Present: atraumatic, normocephalic - Eye Eye exam: Present: PERRL, conjuntiva pink, sclera anicteric Pupils: Present: PERRL - Neck Neck exam general surgery: Present: supple, trachea midline. Absent: lymphadenopathy - Respiratory Respiratory exam: Present: decreased breath sounds, CTAB. Absent: accessory muscle use, rales, rhonchi, wheezes - Cardiovascular Cardiovascular exam: Present: RRR, +S1, +S2. Absent: diastolic murmur, gallop, rubs, systolic murmur - GI/Abdominal GI/Abdominal exam: Present: normal bowel sounds, soft, no peritoneal signs. Absent: distended, tenderness - Extremities Exam Extremities exam: Present: warm, radial pulses palpable and symetrical. Absent : calf tenderness, cyanotic, pedal edema - Neurological Exam Neurological exam: Present: CN II-XII intact, oriented X3, no focal deficits. Absent: pronater drift, facial droop, speech deficit - Skin Skin exam: Present: dry, intact
[2016-11-25] MEDS ORDERED: predniSONE 20 MG TABLET PO SCH (09:15)
--- NOTE | 2016-11-25 09:29 | Physician Discharge Referral ---
Home Health/Hosp Referral Info Transfer to: Home Health Provider in Charge Post Discharge: PCP - Diagnosis (1) Acute respiratory failure with hypoxia and hypercapnia Status: Acute (2) Respiratory acidosis Status: Resolved (3) Pulmonary edema Status: Resolved (4) Diabetes mellitus Status: Chronic (5) Nicotine dependence Status: Chronic (6) Hypertension Status: Chronic (7) History of CVA in adulthood Status: Chronic (8) History of hypothyroidism Status: Chronic (9) Diastolic heart failure Status: Acute (10) PNA (pneumonia) Status: Acute - Respiratory Orders Oxygen / L per min (3.5-4 Lt) Smoking Cessation: Smoking cessation has been advised. For more information, call the [place] Tobacco Quit Line at 8-796-BUNC-NOW. - Diet/Nutrition Diet/Nutrition Orders: No Added Salt (KASSIDY) - Services Needed Following services are medically necessary services: Home Health Aide, Physical Therapy Home Care Orders: Follow with primary care physician within the next 7 days. Complete prednisone taper. COntinue Oxygen at home, quit smoking , follow with pulmonary service within the next 3 weeks. Continue Lasix, Keep oxygen saturation between 88 and 92% - Transfer Medications Prescriptions: Furosemide [Lasix] 20 mg PO DAILY #30 tablet LORazepam [Ativan] 1 mg PO QID PRN #30 tablet PRN Reason: shortness of breath anxiety PredniSONE 10 mg PO DAILY 12 Days Home Medications: Aclidinium [place] [Tudorza Pressair] 400 mcg IH BID 11/16/16 [History] Albuterol Neb [Proventil Neb] 2.5 mg IH Q4H PRN 11/16/16 [History] Albuterol Sulfate [Ventolin Hfa] 2 puff IH Q4H PRN 11/16/16 [History] Alendronate Sodium [Fosamax] 70 mg PO QWEEK 11/16/16 [History] Amlodipine [Norvasc] 5 mg PO DAILY 11/16/16 [History] Aspirin Enteric Coated [Aspirin EC] 325 mg PO DAILY 11/16/16 [History] Atenolol [Tenormin] 25 mg PO DAILY 11/16/16 [History] BuPROPion SR (12 HR) [Wellbutrin SR] 200 mg PO BID 11/16/16 [History] Budesonide/Formoterol 160/4.5 [Symbicort 160/4.5] 2 puff IH BIDR 11/16/16 [ History] Ergocalciferol (VITAMIN D2) [Vitamin D2] 50,000 unit PO QWEEK 11/16/16 [History] Escitalopram [Lexapro] 20 mg PO DAILY 11/16/16 [History] Folic Acid 1 mg PO DAILY 11/16/16 [History] Gabapentin [Neurontin] 300 mg PO BID 11/16/16 [History] Ipratropium/Albuterol Neb [Duoneb] 3 ml IH Q6H PRN 11/16/16 [History] Lamotrigine [Lamictal] 100 mg PO DAILY 11/16/16 [History] Lansoprazole [Prevacid] 30 mg PO DAILY 11/16/16 [History] Levothyroxine Sodium [Synthroid] 200 mcg PO QAM 11/16/16 [History] Linagliptin [Tradjenta] 5 mg PO DAILY 11/16/16 [History] Losartan/Hydrochlorothiazide [Hyzaar 100-25 Tablet] 1 each PO DAILY 11/16/16 [ History] Lovastatin [Mevacor] 20 mg PO QPM 11/16/16 [History] Metformin HCl [Metformin HCl ER] 1,500 mg PO DAILY 11/16/16 [History] Methotrexate [Otrexup] 12.5 mg PO QWEEK 11/16/16 [History] Potassium Chloride [Klor-Con 10] 10 meq PO TID 11/16/16 [History] Furosemide [Lasix] 20 mg PO DAILY #30 tablet 11/25/16 [Rx] LORazepam [Ativan] 1 mg PO QID PRN #30 tablet 11/25/16 [Rx] PredniSONE 10 mg PO DAILY 12 Days 11/25/16 [Rx] Allergies/Adverse Reactions: Allergies No Known Allergies Allergy (Verified 04/01/16 11:12) Certification: Further, I certify that my clinical findings support that this patient is homebound (i.e. absences from home require considerable and taxing effort and are for medical reasons or voodoo services or infrequently or short duration when for other reasons) because: Homebound Reason: Patient requires assistance of a person or device to safely leave home Attestation: My signature below is to certify that this patient is under my care and that I, or nurse practitioner, or a physician's faculty research assistant working with me, has a face-to -face encounter with this patient.
[2016-11-25 15:47] VITALS: BP 157/85
== END 2016-11-25 15:45 | disposition home health service (06) | DRG 951 ==
LOC: EMEROO 15:22 → SUATTDRO 18:01 → ICNU 18:01 → 3ANU 11-20 14:20
PROVIDERS: ADMIT Internal Medicine; ATTEND Internal Medicine

== ENCOUNTER 2016-12-30 21:52 | Inpatient (IN) ==
[2016-12-30] MEDS ORDERED: Ipratropium/Albuterol Neb 3 ML IH ONE (22:09)
[2016-12-30] MEDS ORDERED: methylPREDNISolone 125 MG/2 ML VIAL IVP ONE (22:09)
[2016-12-30] MEDS ORDERED: Aspirin 81 MG TAB.CHEW PO STA (22:10)
[2016-12-30 22:32] LABS: Basophils % 0.2 %; Eosinophils % 0.2 %; Hematocrit 34.9 % (35.3-44.9); Hemoglobin 11.4 g/dL (11.5-15.4); Immature Granulocytes % 1.2 % (0-4); Lymphocytes # 0.6 K/mcL (0.6-4.6); Lymphocytes % 3.3 %; Mean Corpuscular HGB Conc 32.7 g/dL (31.6-35.5); Mean Corpuscular Hemoglobin 29.2 pg (28.0-33.3); Mean Corpuscular Volume 89.3 fL (83.0-100.0); Mean Platelet Volume 9.5 fL (9.4-12.4); Monocytes # 0.4 K/mcL (0.0-1.3); Monocytes % 2.1 %; Neutrophils # 15.8 K/mcL (1.6-8.9); Platelet Count 258 K/mcL (140-400); Red Blood Count 3.91 M/mcL (3.82-4.97); Red Cell Distribution Width 13.5 % (11.5-14.5)
[2016-12-30 22:42] LABS: BUN/Creatinine Ratio 19 (6-26); Blood Urea Nitrogen 16 mg/dL (7-20); Carbon Dioxide 38 mEq/L (19-29); Chloride 91 mEq/L (98-109); Glucose 349 mg/dL (70-99); Sodium 140 mEq/L (136-145); eGFR For African Americans > 60 (> 60); eGFR For Non-African Americans > 60 (> 60)
[2016-12-30 22:42] LABS: INR 1.3; Prothrombin Time 14.5 Seconds (9.4-12.1)
[2016-12-30 22:43] LABS: Calcium 9.6 mg/dL (8.6-10.8); Osmolality,Calculated 305 (280-300)
--- NOTE | 2016-12-30 22:46 | Emergency Department Note ---
Disposition Clinical Impression: PNA (pneumonia) Qualifiers: Pneumonia type: due to unspecified organism Laterality: right Lung location: lower lobe of lung Qualified Code(s): J18.1 - Lobar pneumonia, unspecified organism Disposition: Admitted As Inpatient Condition: Fair Time of Disposition: 02:44 General Adult HPI - General Chief complaint: ED Shortness of Breath/Dyspnea Stated complaint: CALEB Time Seen by Provider: 12/30/16 22:02 Nursing Notes Reviewed: Yes Vital Signs Reviewed: Yes - History of Present Illness HPI Narrative: 1 Week history of increased SOB, cough, and dyspnea. Patient began having chest pain today. She states she has had an increase in her sputum and is changed to a thick clear sputum. - Related Data Home Medications Medication Instructions Recorded Confirmed Aclidinium [place] [Tudorza 400 mcg IH BID 11/16/16 12/31/16 Pressair] Albuterol Neb [Proventil Neb] 2.5 mg IH Q4H PRN 11/16/16 12/31/16 Albuterol Sulfate [Ventolin Hfa] 2 puff IH Q4H PRN 11/16/16 12/31/16 Amlodipine [Norvasc] 5 mg PO DAILY 11/16/16 12/31/16 Aspirin Enteric Coated [Aspirin EC] 325 mg PO DAILY 11/16/16 12/31/16 Atenolol [Tenormin] 25 mg PO DAILY 11/16/16 12/31/16 BuPROPion SR (12 HR) [Wellbutrin 200 mg PO BID 11/16/16 12/31/16 SR] Budesonide/Formoterol 160/4.5 2 puff IH BIDR 11/16/16 12/31/16 [Symbicort 160/4.5] Ergocalciferol (VITAMIN D2) 50,000 unit PO QWEEK 11/16/16 12/31/16 [Vitamin D2] Escitalopram [Lexapro] 20 mg PO DAILY 11/16/16 12/31/16 Folic Acid 1 mg PO DAILY 11/16/16 12/31/16 Gabapentin [Neurontin] 300 mg PO BID 11/16/16 12/31/16 Ipratropium/Albuterol Neb [Duoneb] 3 ml IH Q6H PRN 11/16/16 12/31/16 Lansoprazole [Prevacid] 30 mg PO DAILY 11/16/16 12/31/16 Levothyroxine Sodium [Synthroid] 200 mcg PO QAM 11/16/16 12/31/16 Linagliptin [Tradjenta] 5 mg PO DAILY 11/16/16 12/31/16 Losartan/Hydrochlorothiazide 1 each PO DAILY 11/16/16 12/31/16 [Hyzaar 100-25 Tablet] Lovastatin [Mevacor] 20 mg PO QPM 11/16/16 12/31/16 Metformin HCl [Metformin HCl ER] 1,500 mg PO DAILY 11/16/16 12/31/16 Methotrexate [Otrexup] 12.5 mg PO QWEEK 11/16/16 12/31/16 Potassium Chloride [Klor-Con 10] 10 meq PO TID 11/16/16 12/31/16 Previous Rx's Medication Instructions Recorded LORazepam [Ativan] 1 mg PO QID PRN #30 tablet 11/25/16 Allergies Allergy/AdvReac Type Severity Reaction Status Date / Time No Known Allergies Allergy Verified 12/31/16 02:29 Past Medical History - Past Medical History Medical history: Reports: COPD, diabetes, hyperlipidemia, hypertension, thyroid disease, other (Psoriasis, rheumatoid arthritis) Surgical history: Reports: cholecystectomy, other (Tubal ligation, local cord biopsy, bilateral cataract surgery) Psychiatric history: Reports: anxiety, depression - Social History Smoking Status: Current every day smoker Smokeless Tobacco Status: No Alcohol use: Reports: none Drug use: Reports: other Physical Exam - General Limitations: no limitations, language barrier General appearance: alert, in no apparent distress - Head Head exam: atraumatic, normocephalic - Eye Eye exam: Present: normal appearance, PERRL, EOMI - ENT ENT exam: normal exam, normal oropharynx, mucous membranes moist - Neck Neck exam: Present: normal inspection, full ROM - Chest Chest inspection: Present: normal inspection - Respiratory Respiratory exam: Present: respiratory distress, other (tight lung sounds throughout) - Cardiovascular Cardiovascular exam: Present: tachycardia, normal heart sounds - Abdominal Exam Abdominal exam: Present: soft, Non-Tender, normal bowel sounds. Absent: tenderness, distention, guarding, rebound, rigidity - Extremities Exam Extremities exam: Present: normal inspection, full ROM, normal capillary refill. Absent: tenderness, pedal edema - Neurological Exam Neurological exam: Present: alert, oriented X3 - Psychiatric Psychiatric exam: Present: normal affect, normal mood - Skin Skin exam: Present: warm, dry, intact, normal color. Absent: rash, cyanosis Course Course Narrative: 1 week history of increasing shortness of breath. Today history of left-sided chest pain. Does have a productive cough of a thickened clear sputum. This has changed from her normal sputum production. States that the pain is in the left side of her chest and is still present. She is stating she has never had a cardiac workup however family stating she was released one month ago for chest pain here as well. Patient's lung sounds are tight throughout. We will give patient 3 duo nebs and steroids. We will also do a cardiac workup on patient and provide her with aspirin. She denies any nausea vomiting or diarrhea. She denies any diaphoresis. Patient's oxygen saturation has been staying in the mid 80s to low 90s. Patient's family advises the patient's oxygen saturation generally stays from 85-90%. She is on 4 lpm via nasal cannula. She does appear to have possible pneumonia. Her chest x-rays have an increase opacity from the previous chest x-ray she has had. With her lung sounds dyspnea and increased sputum as well as recent IV antibiotic use we will admit patient for healthcare associated pneumonia and began her on triple antibiotic therapy. SHe is agreeable to this. - Consultations Consultation #1: Dr Piedra accepted Pt on stable condition Time: 23:36 Vital Signs Temperature 0 F L 12/30/16 21:55 Pulse Rate 130 12/30/16 21:55 Respiratory Rate 25 12/30/16 21:55 Blood Pressure 125/85 12/30/16 21:55 O2 Sat by Pulse Oximetry 91 12/30/16 21:55 Temperature 98.5 F 12/31/16 01:33 Pulse Rate 112 12/31/16 01:33 Respiratory Rate 0 12/31/16 00:56 Blood Pressure 165/90 12/31/16 01:33 O2 Sat by Pulse Oximetry 92 12/31/16 01:33 Oxygen Delivery Oxygen Delivery Nasal Cannula Medical Decision Making - Medical Records Medical records reviewed: Yes I reviewed the patient's medical records. - Lab Data Lab results reviewed: Yes I reviewed the patient's lab results. Result diagrams: 12/30/16 22:16 05/04/17 22:16 Lab Results 12/30/16 12/30/16 12/30/16 Range/Units 22:16 22:16 22:16 WBC 17.0 H (4.3-11.1) K/mcL RBC 3.91 (3.82-4.97) M/mcL Hgb 11.4 L (11.5-15.4) g/dL Hct 34.9 L (35.3-44.9) % MCV 89.3 (83.0-100.0) fL MCH 29.2 (28.0-33.3) pg MCHC 32.7 (31.6-35.5) g/dL RDW 13.5 (11.5-14.5) % Plt Count 258 (140-400) K/mcL MPV 9.5 (9.4-12.4) fL Immature Gran % 1.2 (0-4) % Seg Neutrophils % 93.0 % Lymphocytes % 3.3 % Monocytes % 2.1 % Eosinophils % 0.2 % Basophils % 0.2 % Neutrophils # 15.8 H (1.6-8.9) K/mcL Lymphocytes # 0.6 (0.6-4.6) K/mcL Monocytes # 0.4 (0.0-1.3) K/mcL Eosinophils # 0.0 (0.0-0.6) K/mcL Basophils # 0.0 (0.0-0.2) K/mcL PT (9.4-12.1) Seconds INR APTT (26.0-36.0) Seconds Sodium 140 (136-145) mEq/L Potassium 3.0 L (3.5-4.5) mEq/L Chloride 91 L (98-109) mEq/L Carbon Dioxide 38 H (19-29) mEq/L BUN 16 (7-20) mg/dL Creatinine 0.86 (0.57-1.11) mg/dL Est GFR ( Amer) > 60 (> 60) Est GFR (Non-Af Amer) > 60 (> 60) BUN/Creatinine Ratio 19 (6-26) Glucose 349 H (70-99) mg/dL Calculated Osmolality 305 H (280-300) Calcium 9.6 (8.6-10.8) mg/dL Troponin I (0-0.03) ng/mL B-Natriuretic Peptide 105 H (0-100) pg/mL 12/30/16 12/30/16 Range/Units 22:16 22:31 WBC (4.3-11.1) K/mcL RBC (3.82-4.97) M/mcL Hgb (11.5-15.4) g/dL Hct (35.3-44.9) % MCV (83.0-100.0) fL MCH (28.0-33.3) pg MCHC (31.6-35.5) g/dL RDW (11.5-14.5) % Plt Count (140-400) K/mcL MPV (9.4-12.4) fL Immature Gran % (0-4) % Seg Neutrophils % % Lymphocytes % % Monocytes % % Eosinophils % % Basophils % % Neutrophils # (1.6-8.9) K/mcL Lymphocytes # (0.6-4.6) K/mcL Monocytes # (0.0-1.3) K/mcL Eosinophils # (0.0-0.6) K/mcL Basophils # (0.0-0.2) K/mcL PT 14.5 H (9.4-12.1) Seconds INR 1.3 APTT 26.0 (26.0-36.0) Seconds Sodium (136-145) mEq/L Potassium (3.5-4.5) mEq/L Chloride (98-109) mEq/L Carbon Dioxide (19-29) mEq/L BUN (7-20) mg/dL Creatinine (0.57-1.11) mg/dL Est GFR ( Amer) (> 60) Est GFR (Non-Af Amer) (> 60) BUN/Creatinine Ratio (6-26) Glucose (70-99) mg/dL Calculated Osmolality (280-300) Calcium (8.6-10.8) mg/dL Troponin I 0.02 (0-0.03) ng/mL B-Natriuretic Peptide (0-100) pg/mL - Radiology Data Radiology results reviewed: Yes I reviewed the patient's radiology results. Chest X-Ray 12/30/16 22:04 IMPRESSION: No significant change compared to prior radiograph. Stable nonspecific mild diffuse interstitial prominence, worse in the mid and lower lung zones. Otherwise no new or acute consolidation. D/ / Johnathon Silva MD / Johnathon Silva MD Interpreting Provider: Johnahton Silva MD - EKG Data EKG #1 EKG attestation: Yes I reviewed and interpreted this EKG. EKG results narrative: Sinus tachycardia at a rate of 118. IL interval is 145. QRS duration is 92. QT is 321. QTC is 391. No signs of acute ischemia. No significant changes from previous EKG dated 11/16/2016. EKG #2 EKG attestation: Yes I reviewed and interpreted this EKG. Critical Care Time Critical Care Time: Yes Total Critical Care Time: 33 Attestation: Acute respiratory distress with hypoxia Attestation Statement - Attestation Attestation: Dr Cantrell note: Patient was seen in conjunction with resident Dr. Sara Padron; please see her charting for complete documentation. I have spent [id number] and with the patient and I agree with patient's treatment and disposition; patient's x-ray results have been reviewed. Her work of breathing has improved since she arrived in the ER. X-ray report was read as mostly unchanged. We reviewed the films ourselves and feel that the bilateral densities have worsened. Admitted to the hospitalist. Improved
[2016-12-30] MEDS ORDERED: 0.9 % Sodium Chloride 500 ML IVC ONE (23:20)
[2016-12-30] MEDS ORDERED: Piperacillin/Tazobactam 4.5 GM in D5% in Water (Mini-Bag+) 100 ML IVPB ONE (23:21)
[2016-12-30] MEDS ORDERED: Vancomycin 1,000 MG in D5% in Water 250 ML IVPB ONE (23:22)
[2016-12-30] MEDS ORDERED: Azithromycin 500 MG in D5% in Water 250 ML IVPB ONE (23:22)
[2016-12-31] MEDS ORDERED: Naloxone 0.4 MG/ML INJ IVP PRN (02:35)
[2016-12-31] MEDS ORDERED: 0.9 % Sodium Chloride 500 ML IVC ONE (02:38)
[2016-12-31] MEDS ORDERED: Levalbuterol Neb 1.25 MG/3 ML IH PRN (02:42)
--- NOTE | 2016-12-31 02:44 | Internal Med History&Physical ---
Date of Encounter: 12/31/16 Time of Encounter: 02:44 Assessment and Plan (1) Pneumonia Current visit: Yes Status: Acute On my personal review of chest x-ray, there is increased opacity of the right lower lobe. Treat her for healthcare associated pneumonia, with vancomycin, Zosyn and azithromycin. Sputum cultures. Qualifiers: Pneumonia type: due to unspecified organism Laterality: right Lung location: lower lobe of lung Qualified Code(s): J18.1 - Lobar pneumonia, unspecified organism (2) Sepsis Current visit: Yes Status: Acute Likely due to pneumonia. Patient has leukocytosis and tachycardia. Lactate is normal. Treat with antibiotics and IV fluids. Qualifiers: Sepsis type: sepsis due to unspecified organism Qualified Code(s): A41.9 - Sepsis, unspecified organism (3) Acute and chronic respiratory failure ([id number]) Current visit: Yes Status: Acute On supplemental oxygen. ABG does not show any respiratory acidosis. Consider BiPAP therapy, if any deterioration. Pt confirms that she does not want to be intubated. Code status at this time: DNRCCA- DNI Qualifiers: Respiratory failure complication: hypoxia and hypercapnia Qualified Code(s) : J96.21 - Acute and chronic respiratory failure with hypoxia; J96.22 - Acute and chronic respiratory failure with hypercapnia (4) Diabetes mellitus Current visit: Yes Status: Chronic Treat with sliding scale insulin Qualifiers: Diabetes mellitus type: type 2 Diabetes mellitus complication status: with unspecified complications Diabetes mellitus long term care social worker insulin use: without penitentiary use Qualified Code(s): E11.8 - Type 2 diabetes mellitus with unspecified complications (5) Nicotine dependence Current visit: Yes Status: Chronic Does not want nicotine patches Qualifiers: Nicotine product type: cigarettes Substance use status: other nicotine- induced disorder Qualified Code(s): F17.218 - Nicotine dependence, cigarettes , with other nicotine-induced disorders (6) Hypokalemia Current visit: Yes Status: Acute Replenish potassium (7) Leucocytosis Current visit: Yes Status: Acute Likely due to pneumonia Qualifiers: Leukocytosis type: unspecified Qualified Code(s): D72.829 - Elevated white blood cell count, unspecified (8) Hypothyroidism Current visit: Yes Status: Acute Continue synthroid Qualifiers: Hypothyroidism type: unspecified Qualified Code(s): E03.9 - Hypothyroidism , unspecified (9) Hypertension Current visit: Yes Status: Acute Continue home medications Qualifiers: Hypertension type: essential hypertension Qualified Code(s): I10 - Essential (primary) hypertension (10) Hypomagnesemia Current visit: Yes Status: Acute Replenish magnesium. Internal Medicine - H&P: HPI Chief complaint: Shortness of breath Admitted From: Emergency Dept Plans for Post Hospital Care: Home History of present illness: Ms. Jhaveri is a 71 year old female with Past medical history significant for COPD, chronic respiratory failure on home oxygen (4LPM), current smoker, diabetes mellitus, hyperlipidemia, hypertension, hypothyroidism, arthritis (on methotrexate), degenerative disc disease. She was recently admitted to this hospital in October 2016, acute respiratory failure requiring intubation and mechanical ventilation. She presents to the emergency department with 1 Week history of increased SOB, but even worse in the last day, cough with greenish expectoration. Patient began having chest pain today. She states she has had an increase in her sputum and is changed to a thick clear sputum. She reports low-grade fever. She denies significant chest pain/palpitations. She denies abdominal pain, dysuria, hematuria. She reports diarrhea for a few days. She was evaluated in the emergency department - oxygen saturation has been staying in the mid 80s to low 90s and improved with that treatment in the emergency department. WBC of 17. Her chest x-rays showed increase opacity from the previous chest x-ray - she is started on vancomycin, Zosyn, and daptomycin for healthcare associated pneumonia. She is admitted to the hospitalist service for further workup and management. Past Med Surg Social Fam HX - Past Medical History Medical history: COPD, diabetes, hyperlipidemia, hypertension, thyroid disease, other (Psoriasis, rheumatoid arthritis) Psychiatric history: anxiety, depression - Past Surgical History Surgical History: cholecystectomy, other (Tubal ligation, local cord biopsy, bilateral cataract surgery) - Social History Smoking Status: Current every day smoker Packs per day: 2 cigs/day Smokeless Tobacco Status: No Alcohol use: none Drug use: other - Family History Father Living Status: Hx Family Cardiac Disorders: Yes (Stroke,) Hx Family Respiratory Disorders: Yes (COPD) Hx Family Endocrine Disorder: Yes (Diabetes) Mother Living Status: Cause of : DC Hx Family Cardiac Disorders: Yes (DC) Hx Family Cancer: Yes (Lung) Hx Family Endocrine Disorder: Yes (Hypothyroidism, diabetes) Internal Medicine - H&P: Meds Aclidinium [place] [Tudorza Pressair] 400 mcg IH BID 11/16/16 [History] Albuterol Neb [Proventil Neb] 2.5 mg IH Q4H PRN 11/16/16 [History] Albuterol Sulfate [Ventolin Hfa] 2 puff IH Q4H PRN 11/16/16 [History] Amlodipine [Norvasc] 5 mg PO DAILY 11/16/16 [History] Aspirin Enteric Coated [Aspirin EC] 325 mg PO DAILY 11/16/16 [History] Atenolol [Tenormin] 25 mg PO DAILY 11/16/16 [History] BuPROPion SR (12 HR) [Wellbutrin SR] 200 mg PO BID 11/16/16 [History] Budesonide/Formoterol 160/4.5 [Symbicort 160/4.5] 2 puff IH BIDR 11/16/16 [ History] Ergocalciferol (VITAMIN D2) [Vitamin D2] 50,000 unit PO QWEEK 11/16/16 [History] Escitalopram [Lexapro] 20 mg PO DAILY 11/16/16 [History] Folic Acid 1 mg PO DAILY 11/16/16 [History] Gabapentin [Neurontin] 300 mg PO BID 11/16/16 [History] Ipratropium/Albuterol Neb [Duoneb] 3 ml IH Q6H PRN 11/16/16 [History] Lansoprazole [Prevacid] 30 mg PO DAILY 11/16/16 [History] Levothyroxine Sodium [Synthroid] 200 mcg PO QAM 11/16/16 [History] Linagliptin [Tradjenta] 5 mg PO DAILY 11/16/16 [History] Losartan/Hydrochlorothiazide [Hyzaar 100-25 Tablet] 1 each PO DAILY 11/16/16 [ History] Lovastatin [Mevacor] 20 mg PO QPM 11/16/16 [History] Metformin HCl [Metformin HCl ER] 1,500 mg PO DAILY 11/16/16 [History] Methotrexate [Otrexup] 12.5 mg PO QWEEK 11/16/16 [History] Potassium Chloride [Klor-Con 10] 10 meq PO TID 11/16/16 [History] LORazepam [Ativan] 1 mg PO QID PRN #30 tablet 11/25/16 [Rx] Alendronate Sodium [Fosamax] 70 mg PO QWEEK 12/31/16 [History] Roflumilast [Daliresp] 500 mcg PO DAILY 12/31/16 [History] Allergies No Known Allergies Allergy (Verified 12/31/16 02:29) All Systems PM: A 10-system review of systems was performed and is negative for pertinent findings except as documented above in the HPI. - Constitutional Vitals: Temp Pulse Resp BP Pulse Ox 98.5 F 112 0 165/90 92 12/31/16 01:33 12/31/16 01:33 12/31/16 00:56 12/31/16 01:33 12/31/16 01:33 Exam: General: Short of breath / tachypneic on talking HEENT: Oral mucosa is moist. No conjunctival palor or scleral icterus Neck: No obvious neck swellings Lungs: No significant wheeze Cardiac: Regular rate and rhythm. No significant murmurs Abdomen: Soft, non tender. Bowel sounds present Genitourinary: No vaughn catheter Neurological: Alert and oriented. No gross localizing deficits Psych: Not aggressive or agitated Extremities: Minimal leg edema Skin: No generalized rash Internal Med - H&P Results - Labs CBC & Chem 7: 12/31/16 03:24 12/31/16 03:24 - ABG Interpretation Interpretation: ABG interpreted by me Additional comments: Possible chronic CO2 retention - EKG Data -: EKG Interpreted by Myself EKG shows normal: sinus rhythm Rate: tachycardia - Impressions ITS Impressions Chest X-Ray 12/30/16 22:04 IMPRESSION: No significant change compared to prior radiograph. Stable nonspecific mild diffuse interstitial prominence, worse in the mid and lower lung zones. Otherwise no new or acute consolidation. D/ / Johnathon Silva MD / Johnathon Silva MD Interpreting Provider: Johnathon Silva MD
[2016-12-31] MEDS ORDERED: Vancomycin 1,250 MG in D5% in Water 250 ML IVPB SCH (03:00)
[2016-12-31] MEDS: Acetaminophen 325 MG TABLET PO PRN (03:06)
[2016-12-31 03:24] LABS: ABG Base Excess 15.3 mEq/L (-2.0 to 3.0); ABG HCO3 42.5 mEQ/L (21-27); ABG Oxygen Saturation 93 % (95-98); ABG PCO2 64 mmHg (35-45); ABG PH 7.43 pH Units (7.32-7.45); ABG PO2 65 mmHg (85-104); ABG TCO2 44.5 mEq/L (20-26)
[2016-12-31 03:25] LABS: Blood Gas FiO2 36 %
[2016-12-31 03:37] LABS: Basophils % 0.2 %; Hematocrit 33.6 % (35.3-44.9); Immature Granulocytes % 1.5 % (0-4); Lymphocytes # 0.2 K/mcL (0.6-4.6); Lymphocytes % 0.9 %; Mean Corpuscular HGB Conc 32.7 g/dL (31.6-35.5); Mean Corpuscular Hemoglobin 29.3 pg (28.0-33.3); Mean Corpuscular Volume 89.4 fL (83.0-100.0); Mean Platelet Volume 9.7 fL (9.4-12.4); Monocytes # 0.1 K/mcL (0.0-1.3); Monocytes % 0.7 %; Neutrophils # 17.1 K/mcL (1.6-8.9); Platelet Count 252 K/mcL (140-400); Red Blood Count 3.76 M/mcL (3.82-4.97); Red Cell Distribution Width 13.6 % (11.5-14.5); Segmented Neutrophils % 96.7 %
[2016-12-31 03:51] LABS: BUN/Creatinine Ratio 18 (6-26); Blood Urea Nitrogen 16 mg/dL (7-20); Calcium 9.3 mg/dL (8.6-10.8); Carbon Dioxide 34 mEq/L (19-29); Chloride 94 mEq/L (98-109); Glucose 361 mg/dL (70-99); Osmolality,Calculated 306 (280-300); Potassium 3.1 mEq/L (3.5-4.5); Sodium 140 mEq/L (136-145); eGFR For African Americans > 60 (> 60); eGFR For Non-African Americans > 60 (> 60)
[2016-12-31] MEDS ORDERED: Magnesium Sulfate 2 GM in D5% in Water 100 ML IVPB ONE (03:58)
[2016-12-31 04:16] LABS: Platelet Estimate Normal (Normal); Toxic Granulation Present (Not Present)
[2016-12-31] MEDS: Ipratropium/Albuterol Neb 3 ML IH SCH ×4 (04:17→22:28)
[2016-12-31] MEDS: *HR* Heparin 5,000 UNIT/ML VIAL SQ SCH ×3 (05:51→22:58)
[2016-12-31] MEDS: Azithromycin 500 MG in D5% in Water 250 ML IVPB SCH (05:52)
[2016-12-31] MEDS: Vancomycin 1,250 MG in D5% in Water 250 ML IVPB SCH ×2 (05:53→17:30)
[2016-12-31] MEDS ORDERED: *HR* LORazepam 1 MG TABLET PO PRN (06:51)
[2016-12-31] MEDS ORDERED: Albuterol 2.5 MG/3 ML NEBULIZER IH PRN (06:51)
[2016-12-31] MEDS ORDERED: D5% in Water 1,000 ML IVC PRN (06:54)
[2016-12-31] MEDS ORDERED: Dextrose Gel 15 GM PO PRN ×2 (06:54)
[2016-12-31] MEDS ORDERED: *HR* Dextrose 50 % in Water (Syg) 50 ML SYRINGE IVP PRN (06:54)
[2016-12-31] MEDS ORDERED: Potassium Chloride Elixir 20 MEQ/15 ML UDC PO SCH (09:00)
[2016-12-31] MEDS ORDERED: Magnesium Oxide 400 MG TABLET PO SCH (09:00)
[2016-12-31] MEDS ORDERED: predniSONE 10 MG TABLET PO SCH (09:00)
[2016-12-31] MEDS: Aspirin Enteric Coated 325 MG Tablet PO SCH (09:11)
[2016-12-31] MEDS: Gabapentin 300 MG CAPSULE PO SCH ×2 (09:11→22:57)
[2016-12-31] MEDS: Folic Acid 1 MG TABLET PO SCH (09:12)
[2016-12-31] MEDS: amLODIPine 5 MG TABLET PO SCH (09:12)
[2016-12-31] MEDS: Lactobacillus 1 EACH CAP.SPRINK PO SCH ×2 (09:12→22:57)
[2016-12-31] MEDS: (Aclidinium Bromide [Tudorza Pressair] 400 MCG) IH SCH ×2 (09:13→22:58)
[2016-12-31] MEDS: Piperacillin/Tazobactam 3.375 GM in D5% in Water (Mini-Bag+) 100 ML IVPB SCH ×3 (09:14→22:57)
[2016-12-31] MEDS: Insulin LISPRO 300 UNITS/3 ML VIAL SQ SCH ×4 (09:14→23:06)
--- NOTE | 2016-12-31 09:24 | Internal Med Progress Note ---
Addendum entered and electronically signed by Linda Quigley DO 12/31/16 15:05: NOTE: Patient has H&P from earlier this morning. This document is not to be considered a progress note, but to aid in documenting interval events and active issues. Original Note: <Linda Quigley - Last Filed: 12/31/16 14:54> Date of Encounter: 12/31/16 Time of Encounter: 09:00 - Assessment and plan (1) PNA (pneumonia) Current Visit: Yes Status: Acute Assessment and plan: Evidenced clinically and on CXR Chest X-Ray 12/30/16 22:04 IMPRESSION: No significant change compared to prior radiograph. Stable nonspecific mild diffuse interstitial prominence, worse in the mid and lower lung zones. Otherwise no new or acute consolidation. Given her RA on MTX, advanced COPD, consideration of immunosuppressed state. Agree with continuing broad spectrum abx pending culture return. Check Resp infectious panel. Ordered for induced sputum sample, to be obtained by RT with hypertonic inhaled saline. Qualifiers: Pneumonia type: due to unspecified organism Laterality: right Lung location: lower lobe of lung Qualified Code(s): J18.1 - Lobar pneumonia, unspecified organism (2) Acute exacerbation of chronic obstructive airways disease Current Visit: Yes Status: Acute Assessment and plan: Clinically with worsened sputum production, dyspnea. Solumedrol, taper as clinically warranted (3) Acute and chronic respiratory failure ([id number]) Current Visit: Yes Status: Acute Assessment and plan: Patient has advanced COPD, on daily prednisone and 4LNC supp O2 continuous. ABG @ 0315 Prior ABG pCO2 80's Recheck ABG - @ 11: Patient still able to follow cmds and protect airway, will start biPAP, re- evaluate. 1hr BiPAP: @ 12:00 - 7.33/ Improved. OK to take off BiPAP for meals. Resume BiPAP intermittently. Qualifiers: Respiratory failure complication: hypoxia and hypercapnia Qualified Code(s) : J96.21 - Acute and chronic respiratory failure with hypoxia; J96.22 - Acute and chronic respiratory failure with hypercapnia (4) KASIE (obstructive sleep apnea) Current Visit: Yes Status: Chronic Assessment and plan: Patient is diagnosed with KASIE, was on CPAP at home, reports compliance. While acutely hospitalized with CO2 retention, cont BiPAP therapy intermittently during daytime and always on while asleep (5) Rheumatoid arthritis Current Visit: Yes Status: Chronic Assessment and plan: In setting of pna, holding MTX She is followed by Dr. Shannon as outpatient. Qualifiers: Rheumatoid arthritis location: wrist Rheumatoid factor presence: with rheumatoid factor Laterality: bilateral Qualified Code(s): M05.731 - Rheumatoid arthritis with rheumatoid factor of right wrist without organ or systems involvement; M05.732 - Rheumatoid arthritis with rheumatoid factor of left wrist without organ or systems involvement (6) Diastolic heart failure Current Visit: No Status: Chronic Assessment and plan: Echo 11/17/16: EF 65%, mild concentric LVH, moderate PAH RVSP 47mmHg Does not appear to be acute CHF exacerbation at this time. Cont monitoring I/Os. Qualifiers: Heart failure chronicity: chronic Qualified Code(s): I50.32 - Chronic diastolic (congestive) heart failure (7) History of CVA in adulthood Current Visit: Yes Status: Chronic Assessment and plan: November 2014 with Acute lacunar infarct--cerebrovascular accident, residual L- sided weakness. Focal weakness not appreciated on exam during this hospitalization. (8) Insulin dependent diabetes mellitus Current Visit: Yes Status: Acute Assessment and plan: A1C October 2016: 5.9% IDDM, also was recently started on daily prednisone for advanced end-stage COPD. This hospitalization with acute COPD exacerbation, increased systemic steroids. Will increase basal dose. Cont monitoring. (9) DVT prophylaxis Current Visit: Yes Status: Acute Assessment and plan: Hep 5000 U SC TID Patient was initially hesitant regarding need for intubation should the need arise during cardiopulmonary arrest. We discussed that the pneumonia is being treated and that she has the option of changing her mind at any time. After careful consideration, she has elected to be FULL CODE Orders sent to reflect her wishes. - Subjective Interval history: Patient seen/eval, affirms events prompting hospitalization and past medical history. Advanced COPD, on daily prednisone, 4LNC continuous supp O2. Previously hospitalized 11/22/16 in ICU was on mechanical ventilation She affirms worsening dyspnea at home, productive cough, sick contacts. Denies overt chest pain, nvd. History RA followed by Dr. Shannon, has been on MTX since October 2016, follows Dr. [facility] for end-stage COPD. - Constitutional Vitals: Temp Pulse Resp BP Pulse Ox 97.5 F L 111 14 147/68 94 12/31/16 07:12 12/31/16 07:12 12/31/16 07:12 12/31/16 07:12 12/31/16 07:12 General appearance: Present: disheveled, A&O X 2 - Head Head exam: Present: atraumatic, normocephalic - Eye Eye exam: Present: EOMI, sclera anicteric - ENT ENT exam: Present: mucous membranes moist - Neck Neck exam general surgery: Present: supple, trachea midline. Absent: lymphadenopathy, nuchal rigidity - Respiratory Respiratory exam: Present: accessory muscle use (mild), decreased breath sounds (dim RUL, poor air mvt), rhonchi (scant), wheezes (end exp) - Cardiovascular Cardiovascular exam: Present: +S1, +S2. Absent: JVD - GI/Abdominal GI/Abdominal exam: Present: soft, no peritoneal signs - Extremities Exam Extremities exam: Present: warm, radial pulses palpable and symetrical. Absent : pedal edema Internal Medicine: Result - Labs CBC & Chem 7: 12/31/16 03:24 12/31/16 03:24 Labs: Short CBC 12/31/16 Range/Units 03:24 WBC 17.7 H (4.3-11.1) K/mcL Hgb 11.0 L (11.5-15.4) g/dL Hct 33.6 L (35.3-44.9) % Plt Count 252 (140-400) K/mcL Neutrophils # 17.1 H (1.6-8.9) K/mcL BMP 12/31/16 03:24 Sodium 140 Potassium 3.1 L Chloride 94 L Carbon Dioxide 34 H BUN 16 Creatinine 0.87 Glucose 361 H Calcium 9.3 Cardiac Enzymes 12/31/16 Range/Units 03:24 Troponin I 0.03 (0-0.03) ng/mL - ABG Interpretation ABG results: ABG ABG pH 7.43 pH Units (7.32-7.45) 12/31/16 03:15 ABG pCO2 64 mmHg (35-45) H 12/31/16 03:15 ABG pO2 65 mmHg (85-104) L 12/31/16 03:15 ABG O2 Saturation 93 % (95-98) L 12/31/16 03:15 PT/INR, D-dimer PT 14.5 Seconds (9.4-12.1) H 12/30/16 22:31 Consult Discharge Plan - Plan Referrals: Jose G Toure MD [Primary Care Provider] - <Mervin Yoo P - Last Filed: 12/31/16 17:01> Date of Encounter: 12/31/16 - Constitutional Vitals: Temp Pulse Resp BP Pulse Ox 97.7 F 65 26 93/46 99 12/31/16 15:26 12/31/16 15:26 12/31/16 16:34 12/31/16 15:26 12/31/16 16:34 Internal Medicine: Result - Labs CBC & Chem 7: 12/31/16 03:24 12/31/16 03:24 Labs: Short CBC 12/31/16 Range/Units 03:24 WBC 17.7 H (4.3-11.1) K/mcL Hgb 11.0 L (11.5-15.4) g/dL Hct 33.6 L (35.3-44.9) % Plt Count 252 (140-400) K/mcL Neutrophils # 17.1 H (1.6-8.9) K/mcL BMP 12/31/16 03:24 Sodium 140 Potassium 3.1 L Chloride 94 L Carbon Dioxide 34 H BUN 16 Creatinine 0.87 Glucose 361 H Calcium 9.3 Cardiac Enzymes 12/31/16 Range/Units 03:24 Troponin I 0.03 (0-0.03) ng/mL - ABG Interpretation ABG results: ABG ABG pH 7.33 pH Units (7.32-7.45) 12/31/16 12:16 ABG pCO2 85 mmHg (35-45) H* 12/31/16 12:16 ABG pO2 74 mmHg (85-104) L 12/31/16 12:16 ABG O2 Saturation 94 % (95-98) L 12/31/16 12:16 PT/INR, D-dimer PT 14.5 Seconds (9.4-12.1) H 12/30/16 22:31 - Attending Attestation I examined this patient and my medical decision-making was reviewed with the BUS REPAIR SUPERVISOR/PA/Advanced Practice Nurse/Resident Physician. I agree with the documented findings, disposition and treatment plan as described except to the extent set forth below. CODE STATUS: Full code. In case of worsening of the respiratory status, please consider endotracheal intubation and transferred to ICU
[2016-12-31] MEDS: Budesonide/Formoterol 160/4.5 MDI IH SCH ×2 (11:02→22:27)
[2016-12-31 11:10] LABS: ABG Base Excess 14.1 mEq/L (-2.0 to 3.0); ABG HCO3 44.2 mEQ/L (21-27); ABG Oxygen Saturation 99 % (95-98); ABG PH 7.28 pH Units (7.32-7.45); ABG PO2 174 mmHg (85-104); ABG TCO2 47.1 mEq/L (20-26)
[2016-12-31 11:11] LABS: ABG PCO2 94 mmHg (35-45)
[2016-12-31 11:12] LABS: Blood Gas FiO2 50 %
[2016-12-31] MEDS: BuPROPion SR (12 HR) 100 MG TABLET PO SCH ×2 (13:27→22:57)
[2016-12-31 13:35] LABS: ABG Base Excess 15.7 mEq/L (-2.0 to 3.0); ABG HCO3 44.8 mEQ/L (21-27); ABG Oxygen Saturation 94 % (95-98); ABG PH 7.33 pH Units (7.32-7.45); ABG PO2 74 mmHg (85-104); ABG TCO2 47.4 mEq/L (20-26)
[2016-12-31 13:36] LABS: ABG PCO2 85 mmHg (35-45); Blood Gas FiO2 35 %
[2016-12-31] MEDS ORDERED: 3% Sodium Chloride Inhalation 4 ML VIAL.NEB IH ONE (14:53)
[2016-12-31 16:50] LABS: Adenovirus Not Detected (Not Detect); Bordetella Pertussis Not Detected (Not Detect); Chlamydophila pneumoniae Not Detected (Not Detect); Coronavirus 229E Not Detected (Not Detect); Coronavirus HKU1 Not Detected (Not Detect); Coronavirus NL63 Not Detected (Not Detect); Coronavirus OC43 Not Detected (Not Detect); Human Metapneumovirus Not Detected (Not Detect); Human Rhinovirus/Enterovirus Not Detected (Not Detect); Influenza A Subtype 2009 H1 Not Detected (Not Detect); Influenza A Untypeable Not Detected (Not Detect); Influenza B Not Detected (Not Detect); Mycoplasma pneumoniae Not Detected (Not Detect); Parainfluenza Virus 1 Not Detected (Not Detect); Parainfluenza Virus 2 Not Detected (Not Detect); Parainfluenza Virus 3 Not Detected (Not Detect); Parainfluenza Virus 4 Not Detected (Not Detect); Respiratory Syncytial Virus Not Detected (Not Detect)
[2016-12-31] MEDS: methylPREDNISolone 125 MG/2 ML VIAL IVP SCH (17:30)
--- NOTE | 2016-12-31 17:46 | Electrocardiograph Report ---
[address] [address] Test Date: 2016-12-30 Pat Name: Lilly Jhaveri Department: 104 Room: 2NE18 Gender: F [employer] Consultant: KIRAN : 1945 Requested By: Kenya Padron Order Number: [id number] Reading MD: Scott Jeffery Measurements Intervals [place] Rate: 118 P: 84 [place]: 145 QRS: 105 QRSD: 92 T: 101 QT: 321 QTc: 391 Interpretive Statements SINUS TACHYCARDIA POSSIBLE LEFT ATRIAL ENLARGEMENT INDETERMINATE AXIS SEVERE ARTIFACT Electronically Signed On 12-31-2016 17:45:29 EDT by Scott Jeffery
[2016-12-31] MEDS: Insulin DETEMIR 100 UNIT/ML X5UNITS SQ SCH (23:10)
[2017-01-01] MEDS: Azithromycin 500 MG in D5% in Water 250 ML IVPB SCH (03:12)
[2017-01-01] MEDS: Vancomycin 1,250 MG in D5% in Water 250 ML IVPB SCH (03:13)
[2017-01-01] MEDS: Ipratropium/Albuterol Neb 3 ML IH SCH ×3 (04:46→16:34)
[2017-01-01 04:53] LABS: ABG Base Excess 17.2 mEq/L (-2.0 to 3.0); ABG HCO3 45.6 mEQ/L (21-27); ABG Oxygen Saturation 97 % (95-98); ABG PH 7.38 pH Units (7.32-7.45); ABG PO2 91 mmHg (85-104)
[2017-01-01 04:54] LABS: Blood Gas FiO2 35 %
[2017-01-01 04:55] LABS: ABG PCO2 77 mmHg (35-45)
[2017-01-01 05:46] LABS: Basophils % 0.2 %; Hematocrit 31.5 % (35.3-44.9); Hemoglobin 10.2 g/dL (11.5-15.4); Immature Granulocytes % 1.4 % (0-4); Lymphocytes # 0.5 K/mcL (0.6-4.6); Lymphocytes % 2.7 %; Mean Corpuscular HGB Conc 32.4 g/dL (31.6-35.5); Mean Corpuscular Volume 89.5 fL (83.0-100.0); Mean Platelet Volume 9.7 fL (9.4-12.4); Monocytes # 0.5 K/mcL (0.0-1.3); Monocytes % 2.4 %; Neutrophils # 18.5 K/mcL (1.6-8.9); Platelet Count 292 K/mcL (140-400); Red Blood Count 3.52 M/mcL (3.82-4.97); Red Cell Distribution Width 13.4 % (11.5-14.5); Segmented Neutrophils % 93.3 %
[2017-01-01 05:57] LABS: BUN/Creatinine Ratio 30 (6-26); Calcium 8.9 mg/dL (8.6-10.8); Carbon Dioxide 38 mEq/L (19-29); Chloride 93 mEq/L (98-109); Glucose 331 mg/dL (70-99); Osmolality,Calculated 304 (280-300); Sodium 138 mEq/L (136-145); eGFR For African Americans > 60 (> 60); eGFR For Non-African Americans 59 (> 60)
[2017-01-01 05:58] LABS: Blood Urea Nitrogen 28 mg/dL (7-20); Potassium 4.3 mEq/L (3.5-4.5)
[2017-01-01] MEDS: *HR* Heparin 5,000 UNIT/ML VIAL SQ SCH ×3 (06:28→23:18)
[2017-01-01] MEDS: Piperacillin/Tazobactam 3.375 GM in D5% in Water (Mini-Bag+) 100 ML IVPB SCH ×3 (06:29→20:43)
[2017-01-01] MEDS: methylPREDNISolone 125 MG/2 ML VIAL IVP SCH ×2 (06:29→17:19)
[2017-01-01] MEDS: Acetaminophen 325 MG TABLET PO PRN (06:31)
--- NOTE | 2017-01-01 07:52 | Internal Med Progress Note ---
<Linda Quigley - Last Filed: 01/01/17 10:44> Date of Encounter: 01/01/17 Time of Encounter: 07:35 - Assessment and plan (1) PNA (pneumonia) Current Visit: Yes Status: Acute Assessment and plan: Evidenced clinically and on CXR Chest X-Ray 12/30/16 22:04 IMPRESSION: No significant change compared to prior radiograph. Stable nonspecific mild diffuse interstitial prominence, worse in the mid and lower lung zones. Otherwise no new or acute consolidation. Given her RA on MTX, advanced COPD, consideration of immunosuppressed state. Agree with continuing broad spectrum abx Check Resp infectious panel - negative Ordered for induced sputum sample, to be obtained by RT with hypertonic inhaled saline. Sent for UAT Strep and Legionella, Influenza A/B/H1N1 and BC x 2 Qualifiers: Pneumonia type: due to unspecified organism Laterality: right Lung location: lower lobe of lung Qualified Code(s): J18.1 - Lobar pneumonia, unspecified organism (2) Acute exacerbation of chronic obstructive airways disease Current Visit: Yes Status: Acute Assessment and plan: Clinically with worsened sputum production, dyspnea. Solumedrol, taper as clinically warranted (3) Acute and chronic respiratory failure ([id number]) Current Visit: Yes Status: Acute Assessment and plan: Patient has advanced COPD, on daily prednisone and 4LNC supp O2 continuous. ABG @ 0315 7.43/64 Prior ABG pCO2 80's Recheck ABG - @ 11: 7. Patient still able to follow cmds and protect airway, will start biPAP, re- evaluate. 1hr BiPAP: @ 12:00 - 7.33/85 Improved. 01/01/17 7.38/77, bicarb 38, improved OK to take off BiPAP for meals. Resume BiPAP intermittently during the daytime. BiPAP while asleep. Qualifiers: Respiratory failure complication: hypoxia and hypercapnia Qualified Code(s) : J96.21 - Acute and chronic respiratory failure with hypoxia; J96.22 - Acute and chronic respiratory failure with hypercapnia (4) KASIE (obstructive sleep apnea) Current Visit: Yes Status: Chronic Assessment and plan: Patient is diagnosed with KASIE, was on CPAP at home, reports compliance. While acutely hospitalized with CO2 retention, cont BiPAP therapy intermittently during daytime and always on while asleep (5) Rheumatoid arthritis Current Visit: Yes Status: Chronic Assessment and plan: In setting of pna, holding MTX She is followed by Dr. Shannon as outpatient. Qualifiers: Rheumatoid arthritis location: wrist Rheumatoid factor presence: with rheumatoid factor Laterality: bilateral Qualified Code(s): M05.731 - Rheumatoid arthritis with rheumatoid factor of right wrist without organ or systems involvement; M05.732 - Rheumatoid arthritis with rheumatoid factor of left wrist without organ or systems involvement (6) Diastolic heart failure Current Visit: No Status: Chronic Assessment and plan: Echo 11/17/16: EF 65%, mild concentric LVH, moderate PAH RVSP 47mmHg Does not appear to be acute CHF exacerbation at this time. Cont monitoring I/Os. Qualifiers: Heart failure chronicity: chronic Qualified Code(s): I50.32 - Chronic diastolic (congestive) heart failure (7) History of CVA in adulthood Current Visit: Yes Status: Chronic Assessment and plan: November 2014 with Acute lacunar infarct--cerebrovascular accident, residual L- sided weakness. Focal weakness not appreciated on exam during this hospitalization. (8) Insulin dependent diabetes mellitus Current Visit: Yes Status: Acute Assessment and plan: A1C October 2016: 5.9% IDDM, also was recently started on daily prednisone for advanced end-stage COPD. This hospitalization with acute COPD exacerbation, increased systemic steroids. Will increase basal dose. Cont monitoring. (9) DVT prophylaxis Current Visit: Yes Status: Acute Assessment and plan: Hep 5000 U SC TID Patient was initially hesitant regarding need for intubation should the need arise during cardiopulmonary arrest. We discussed that the pneumonia is being treated and that she has the option of changing her mind at any time. After careful consideration, she has elected to be FULL CODE Orders sent to reflect her wishes. - Subjective Interval history: Patient seen/eval, also discussed interval events with covering resident overnight. Patient would be compliant with BiPAP, no acute events. She is resting comfortably on BiPAP. Review of orders no UAT or Cultures were sent. - Constitutional Vitals: Temp Pulse Resp BP Pulse Ox 98.6 F 72 30 144/79 96 01/01/17 06:50 01/01/17 06:50 01/01/17 06:50 01/01/17 06:50 01/01/17 06:50 Exam: Resting comfortably - Head Head exam: Present: atraumatic, normocephalic - Eye Eye exam: Absent: periorbital swelling - ENT ENT exam: Present: mucous membranes moist - Neck Neck exam general surgery: Present: supple, trachea midline - Respiratory Respiratory exam: Present: decreased breath sounds (dim RUL), rhonchi (scant). Absent: accessory muscle use, wheezes - Cardiovascular Cardiovascular exam: Present: +S1, +S2. Absent: JVD - GI/Abdominal GI/Abdominal exam: Present: soft, no peritoneal signs. Absent: tenderness - Extremities Exam Extremities exam: Present: warm, radial pulses palpable and symetrical. Absent : pedal edema Internal Medicine: Result - Labs CBC & Chem 7: 01/01/17 05:29 01/01/17 05:29 Labs: Short CBC 01/01/17 Range/Units 05:29 WBC 19.9 H (4.3-11.1) K/mcL Hgb 10.2 L (11.5-15.4) g/dL Hct 31.5 L (35.3-44.9) % Plt Count 292 (140-400) K/mcL Neutrophils # 18.5 H (1.6-8.9) K/mcL BMP 01/01/17 05:29 Sodium 138 Potassium 4.3 D Chloride 93 L Carbon Dioxide 38 H BUN 28 H D Creatinine 0.94 Glucose 331 H Calcium 8.9 - ABG Interpretation ABG results: ABG ABG pH 7.38 pH Units (7.32-7.45) 01/01/17 04:45 ABG pCO2 77 mmHg (35-45) H* 01/01/17 04:45 ABG pO2 91 mmHg (85-104) 01/01/17 04:45 ABG O2 Saturation 97 % (95-98) 01/01/17 04:45 PT/INR, D-dimer PT 14.5 Seconds (9.4-12.1) H 12/30/16 22:31 Consult Discharge Plan - Plan Referrals: Jose G Toure MD [Primary Care Provider] - <Mervin Yoo P - Last Filed: 01/01/17 12:33> Date of Encounter: 01/01/17 - Constitutional Vitals: Temp Pulse Resp BP Pulse Ox 98.6 F 62 25 140/81 100 01/01/17 11:35 01/01/17 11:35 01/01/17 11:35 01/01/17 11:35 01/01/17 11:35 Internal Medicine: Result - Labs CBC & Chem 7: 01/01/17 05:29 01/01/17 05:29 Labs: Short CBC 01/01/17 Range/Units 05:29 WBC 19.9 H (4.3-11.1) K/mcL Hgb 10.2 L (11.5-15.4) g/dL Hct 31.5 L (35.3-44.9) % Plt Count 292 (140-400) K/mcL Neutrophils # 18.5 H (1.6-8.9) K/mcL BMP 01/01/17 05:29 Sodium 138 Potassium 4.3 D Chloride 93 L Carbon Dioxide 38 H BUN 28 H D Creatinine 0.94 Glucose 331 H Calcium 8.9 - ABG Interpretation ABG results: ABG ABG pH 7.38 pH Units (7.32-7.45) 01/01/17 04:45 ABG pCO2 77 mmHg (35-45) H* 01/01/17 04:45 ABG pO2 91 mmHg (85-104) 01/01/17 04:45 ABG O2 Saturation 97 % (95-98) 01/01/17 04:45 PT/INR, D-dimer PT 14.5 Seconds (9.4-12.1) H 12/30/16 22:31 - Attending Attestation I examined this patient and my medical decision-making was reviewed with the ROAD MENDER/PA/Advanced Practice Nurse/Resident Physician. I agree with the documented findings, disposition and treatment plan as described except to the extent set forth below. We will continue present management. Very high risk patient with possible decompensation and likely intubation.
[2017-01-01] MEDS: Lactobacillus 1 EACH CAP.SPRINK PO SCH ×2 (08:50→20:39)
[2017-01-01] MEDS: BuPROPion SR (12 HR) 100 MG TABLET PO SCH ×2 (08:50→20:38)
[2017-01-01] MEDS: Folic Acid 1 MG TABLET PO SCH (08:51)
[2017-01-01] MEDS: Gabapentin 300 MG CAPSULE PO SCH ×2 (08:51→20:39)
[2017-01-01] MEDS: amLODIPine 5 MG TABLET PO SCH (08:51)
[2017-01-01] MEDS: Aspirin Enteric Coated 325 MG Tablet PO SCH (08:51)
[2017-01-01] MEDS: Insulin LISPRO 300 UNITS/3 ML VIAL SQ SCH ×5 (08:52→20:48)
[2017-01-01] MEDS: (Aclidinium Bromide [Tudorza Pressair] 400 MCG) IH SCH ×2 (08:52→20:43)
[2017-01-01] MEDS: Budesonide/Formoterol 160/4.5 MDI IH SCH (11:25)
[2017-01-01 12:13] LABS: 2009 H1N1 PCR NOT DETECTED (Not Detect); Influenza A PCR Negative (Negative); Influenza B PCR Negative (Negative)
[2017-01-01] MEDS: Insulin DETEMIR 100 UNIT/ML X5UNITS SQ SCH (20:39)
[2017-01-01] MEDS: Vancomycin 1,000 MG in D5% in Water 250 ML IVPB SCH (20:40)
[2017-01-02] MEDS: Azithromycin 500 MG in D5% in Water 250 ML IVPB SCH (03:59)
[2017-01-02 04:54] LABS: Basophils % 0.1 %; Hematocrit 30.4 % (35.3-44.9); Hemoglobin 10.2 g/dL (11.5-15.4); Immature Granulocytes % 0.7 % (0-4); Lymphocytes # 0.6 K/mcL (0.6-4.6); Lymphocytes % 3.7 %; Mean Corpuscular HGB Conc 33.6 g/dL (31.6-35.5); Mean Corpuscular Hemoglobin 30.1 pg (28.0-33.3); Mean Corpuscular Volume 89.7 fL (83.0-100.0); Mean Platelet Volume 10.6 fL (9.4-12.4); Monocytes # 0.4 K/mcL (0.0-1.3); Monocytes % 2.7 %; Neutrophils # 14.6 K/mcL (1.6-8.9); Platelet Count 307 K/mcL (140-400); Red Blood Count 3.39 M/mcL (3.82-4.97); Red Cell Distribution Width 13.2 % (11.5-14.5); Segmented Neutrophils % 92.8 %
[2017-01-02] MEDS: Ipratropium/Albuterol Neb 3 ML IH SCH ×5 (04:54→23:50)
[2017-01-02] MEDS: methylPREDNISolone 125 MG/2 ML VIAL IVP SCH (05:55)
[2017-01-02] MEDS: *HR* Heparin 5,000 UNIT/ML VIAL SQ SCH ×3 (05:57→21:50)
[2017-01-02] MEDS: Piperacillin/Tazobactam 3.375 GM in D5% in Water (Mini-Bag+) 100 ML IVPB SCH (06:00)
[2017-01-02 06:20] LABS: BUN/Creatinine Ratio 33 (6-26); Blood Urea Nitrogen 28 mg/dL (7-20); Calcium 8.7 mg/dL (8.6-10.8); Carbon Dioxide 38 mEq/L (19-29); Chloride 92 mEq/L (98-109); Glucose 237 mg/dL (70-99); Magnesium 1.9 mg/dL (1.6-2.6); Osmolality,Calculated 297 (280-300); Sodium 137 mEq/L (136-145); eGFR For African Americans > 60 (> 60); eGFR For Non-African Americans > 60 (> 60)
[2017-01-02 06:22] LABS: Potassium 3.6 mEq/L (3.5-4.5)
[2017-01-02] MEDS: Insulin LISPRO 300 UNITS/3 ML VIAL SQ SCH ×4 (08:05→21:49)
[2017-01-02] MEDS: Vancomycin 1,000 MG in D5% in Water 250 ML IVPB SCH (08:07)
[2017-01-02] MEDS: Lactobacillus 1 EACH CAP.SPRINK PO SCH ×2 (08:08→21:48)
[2017-01-02] MEDS: (Aclidinium Bromide [Tudorza Pressair] 400 MCG) IH SCH ×2 (08:09→21:50)
[2017-01-02] MEDS: Gabapentin 300 MG CAPSULE PO SCH ×2 (08:09→21:48)
[2017-01-02] MEDS: Aspirin Enteric Coated 325 MG Tablet PO SCH (08:09)
[2017-01-02] MEDS: amLODIPine 5 MG TABLET PO SCH (08:09)
[2017-01-02] MEDS: Folic Acid 1 MG TABLET PO SCH (08:15)
--- NOTE | 2017-01-02 09:32 | Internal Med Progress Note ---
<Linda Quigley - Last Filed: 01/02/17 09:34> Date of Encounter: 01/02/17 Time of Encounter: 08:00 - Assessment and plan (1) PNA (pneumonia) Current Visit: Yes Status: Acute Assessment and plan: Evidenced clinically and on CXR Chest X-Ray 12/30/16 22:04 IMPRESSION: No significant change compared to prior radiograph. Stable nonspecific mild diffuse interstitial prominence, worse in the mid and lower lung zones. Otherwise no new or acute consolidation. Given her RA on MTX, advanced COPD, consideration of immunosuppressed state. Agree with continuing broad spectrum abx, deescalate to levaquin tomorrow. Check Resp infectious panel - negative Ordered for induced sputum sample, to be obtained by RT with hypertonic inhaled saline. Sent for UAT Strep and Legionella, Influenza A/B/[id number] and BC x 2- pending. Qualifiers: Pneumonia type: due to unspecified organism Laterality: right Lung location: lower lobe of lung Qualified Code(s): J18.1 - Lobar pneumonia, unspecified organism (2) Acute exacerbation of chronic obstructive airways disease Current Visit: Yes Status: Acute Assessment and plan: Clinically with worsened sputum production, dyspnea. Solumedrol, taper as clinically warranted (3) Acute and chronic respiratory failure (lijns-iq-wlcglmb) Current Visit: Yes Status: Acute Assessment and plan: Patient has advanced COPD, on daily prednisone and 4LNC supp O2 continuous. ABG @ 0315 7.43/64 Prior ABG pCO2 80's Recheck ABG - @ 11: 7. Patient still able to follow cmds and protect airway, will start biPAP, re- evaluate. 1hr BiPAP: @ 12:00 - 7.33/85 Improved. 01/01/17 7.38/77, bicarb 38, improved OK to take off BiPAP for meals. Resume BiPAP intermittently during the daytime. BiPAP while asleep. Qualifiers: Respiratory failure complication: hypoxia and hypercapnia Qualified Code(s) : J96.21 - Acute and chronic respiratory failure with hypoxia; J96.22 - Acute and chronic respiratory failure with hypercapnia (4) KASIE (obstructive sleep apnea) Current Visit: Yes Status: Chronic Assessment and plan: Patient is diagnosed with KASIE, was on CPAP at home, reports compliance. While acutely hospitalized with CO2 retention, cont BiPAP therapy intermittently during daytime and always on while asleep (5) Rheumatoid arthritis Current Visit: Yes Status: Chronic Assessment and plan: In setting of pna, holding MTX She is followed by Dr. Shannon as outpatient. Qualifiers: Rheumatoid arthritis location: wrist Rheumatoid factor presence: with rheumatoid factor Laterality: bilateral Qualified Code(s): M05.731 - Rheumatoid arthritis with rheumatoid factor of right wrist without organ or systems involvement; M05.732 - Rheumatoid arthritis with rheumatoid factor of left wrist without organ or systems involvement (6) Diastolic heart failure Current Visit: No Status: Chronic Assessment and plan: Echo 11/17/16: EF 65%, mild concentric LVH, moderate PAH RVSP 47mmHg Does not appear to be acute CHF exacerbation at this time. Cont monitoring I/Os. Qualifiers: Heart failure chronicity: chronic Qualified Code(s): I50.32 - Chronic diastolic (congestive) heart failure (7) History of CVA in adulthood Current Visit: Yes Status: Chronic Assessment and plan: November 2014 with Acute lacunar infarct--cerebrovascular accident, residual L- sided weakness. Focal weakness not appreciated on exam during this hospitalization. (8) Insulin dependent diabetes mellitus Current Visit: Yes Status: Acute Assessment and plan: A1C October 2016: 5.9% IDDM, also was recently started on daily prednisone for advanced end-stage COPD. This hospitalization with acute COPD exacerbation, increased systemic steroids. Will increase basal dose. Cont monitoring. 01/02/17 BG 200s, also anticipate decreasing steroids. Will dec basal dose tonight. (9) DVT prophylaxis Current Visit: Yes Status: Acute Assessment and plan: Hep 5000 U SC TID Patient was initially hesitant regarding need for intubation should the need arise during cardiopulmonary arrest. We discussed that the pneumonia is being treated and that she has the option of changing her mind at any time. After careful consideration, she has elected to be FULL CODE Orders sent to reflect her wishes. - Subjective Interval history: Patient seen/eval, she is breathing better, still has mild cough - clearish sputum. Compliant with biPAP overnight. We discussed further about smoking cessation and she would like to try that upon discharge but not presently. She denies fever, chills, chest pain/tightness, nvd. Ate breakfast, no other concerns. - Constitutional Vitals: Temp Pulse Resp BP Pulse Ox 97.8 F 65 22 174/83 100 01/02/17 07:42 01/02/17 07:42 01/02/17 07:42 01/02/17 07:42 01/02/17 07:42 General appearance: Present: disheveled, A&O X 2 - Head Head exam: Present: atraumatic, normocephalic - Eye Eye exam: Present: EOMI, sclera anicteric - ENT ENT exam: Present: mucous membranes moist - Neck Neck exam general surgery: Present: supple, trachea midline - Respiratory Respiratory exam: Present: decreased breath sounds (bases and RU field), prolonged expiratory phase. Absent: wheezes - Cardiovascular Cardiovascular exam: Present: +S1, +S2. Absent: JVD - GI/Abdominal GI/Abdominal exam: Present: soft, no peritoneal signs. Absent: tenderness - Extremities Exam Extremities exam: Present: warm, radial pulses palpable and symetrical. Absent : pedal edema - Neurological Exam Neurological exam: Absent: facial droop, speech deficit Internal Medicine: Result - Labs CBC & Chem 7: 01/02/17 03:17 01/02/17 05:50 Labs: Short CBC 01/02/17 Range/Units 03:17 WBC 15.8 H (4.3-11.1) K/mcL Hgb 10.2 L (11.5-15.4) g/dL Hct 30.4 L (35.3-44.9) % Plt Count 307 (140-400) K/mcL Neutrophils # 14.6 H (1.6-8.9) K/mcL BMP 01/02/17 05:50 Sodium 137 Potassium 3.6 Chloride 92 L Carbon Dioxide 38 H BUN 28 H Creatinine 0.85 Glucose 237 H Calcium 8.7 - ABG Interpretation ABG results: ABG ABG pH 7.38 pH Units (7.32-7.45) 01/01/17 04:45 ABG pCO2 77 mmHg (35-45) H* 01/01/17 04:45 ABG pO2 91 mmHg (85-104) 01/01/17 04:45 ABG O2 Saturation 97 % (95-98) 01/01/17 04:45 PT/INR, D-dimer PT 14.5 Seconds (9.4-12.1) H 12/30/16 22:31 Consult Discharge Plan - Plan Referrals: Jose G Toure MD [Primary Care Provider] - <Mervin Yoo P - Last Filed: 01/02/17 17:24> Date of Encounter: 01/02/17 - Constitutional Vitals: Temp Pulse Resp BP Pulse Ox 97.9 F 74 20 166/91 99 01/02/17 16:25 01/02/17 16:25 01/02/17 16:25 01/02/17 16:25 01/02/17 16:25 Internal Medicine: Result - Labs CBC & Chem 7: 01/02/17 03:17 01/02/17 05:50 Labs: Short CBC 01/02/17 Range/Units 03:17 WBC 15.8 H (4.3-11.1) K/mcL Hgb 10.2 L (11.5-15.4) g/dL Hct 30.4 L (35.3-44.9) % Plt Count 307 (140-400) K/mcL Neutrophils # 14.6 H (1.6-8.9) K/mcL BMP 01/02/17 05:50 Sodium 137 Potassium 3.6 Chloride 92 L Carbon Dioxide 38 H BUN 28 H Creatinine 0.85 Glucose 237 H Calcium 8.7 - ABG Interpretation ABG results: ABG ABG pH 7.38 pH Units (7.32-7.45) 01/01/17 04:45 ABG pCO2 77 mmHg (35-45) H* 01/01/17 04:45 ABG pO2 91 mmHg (85-104) 01/01/17 04:45 ABG O2 Saturation 97 % (95-98) 01/01/17 04:45 PT/INR, D-dimer PT 14.5 Seconds (9.4-12.1) H 12/30/16 22:31 - Attending Attestation I examined this patient and my medical decision-making was reviewed with the DEALER ANALYST/PA/Advanced Practice Nurse/Resident Physician. I agree with the documented findings, disposition and treatment plan as described except to the extent set forth below.
[2017-01-02] MEDS: Budesonide/Formoterol 160/4.5 MDI IH SCH ×3 (10:48→23:50)
[2017-01-02] MEDS ORDERED: Aminoglycoside Consult 1 EACH MC ONE (12:00)
[2017-01-02] MEDS: BuPROPion SR (12 HR) 100 MG TABLET PO SCH ×2 (12:15→21:48)
[2017-01-02] MEDS: Acetaminophen 325 MG TABLET PO PRN (21:48)
[2017-01-02] MEDS: Insulin DETEMIR 100 UNIT/ML X5UNITS SQ SCH (21:48)
[2017-01-03] MEDS: Ipratropium/Albuterol Neb 3 ML IH SCH ×4 (05:04→23:59)
[2017-01-03 05:16] LABS: Basophils % 0.2 %; Eosinophils % 0.3 %; Hematocrit 30.3 % (35.3-44.9); Hemoglobin 9.6 g/dL (11.5-15.4); Immature Granulocytes % 1.5 % (0-4); Lymphocytes # 1.3 K/mcL (0.6-4.6); Lymphocytes % 11.4 %; Mean Corpuscular HGB Conc 31.7 g/dL (31.6-35.5); Mean Corpuscular Hemoglobin 28.8 pg (28.0-33.3); Mean Platelet Volume 9.8 fL (9.4-12.4); Monocytes # 0.7 K/mcL (0.0-1.3); Monocytes % 6.4 %; Neutrophils # 8.8 K/mcL (1.6-8.9); Platelet Count 315 K/mcL (140-400); Red Blood Count 3.33 M/mcL (3.82-4.97); Red Cell Distribution Width 13.1 % (11.5-14.5); Segmented Neutrophils % 80.2 %
[2017-01-03 05:36] LABS: BUN/Creatinine Ratio 30 (6-26); Blood Urea Nitrogen 23 mg/dL (7-20); Calcium 8.6 mg/dL (8.6-10.8); Chloride 95 mEq/L (98-109); Glucose 125 mg/dL (70-99); Osmolality,Calculated 299 (280-300); Potassium 3.3 mEq/L (3.5-4.5); Sodium 142 mEq/L (136-145); eGFR For African Americans > 60 (> 60); eGFR For Non-African Americans > 60 (> 60)
[2017-01-03 05:41] LABS: Carbon Dioxide 40 mEq/L (19-29)
[2017-01-03] MEDS: *HR* Heparin 5,000 UNIT/ML VIAL SQ SCH ×3 (06:49→21:58)
[2017-01-03] MEDS: methylPREDNISolone 125 MG/2 ML VIAL IVP SCH (08:12)
[2017-01-03] MEDS: Insulin LISPRO 300 UNITS/3 ML VIAL SQ SCH ×4 (08:12→22:00)
[2017-01-03] MEDS: Gabapentin 300 MG CAPSULE PO SCH ×2 (08:13→21:57)
[2017-01-03] MEDS: BuPROPion SR (12 HR) 100 MG TABLET PO SCH ×2 (08:13→21:57)
[2017-01-03] MEDS: Aspirin Enteric Coated 325 MG Tablet PO SCH (08:13)
[2017-01-03] MEDS: amLODIPine 5 MG TABLET PO SCH (08:14)
[2017-01-03] MEDS: Lactobacillus 1 EACH CAP.SPRINK PO SCH ×2 (08:14→21:58)
[2017-01-03] MEDS: Folic Acid 1 MG TABLET PO SCH (08:14)
[2017-01-03] MEDS: Levofloxacin 750 MG/150 ML 750 MG/150 ML BAG IVPB SCH (08:14)
--- NOTE | 2017-01-03 08:57 | Internal Med Progress Note ---
Date of Encounter: 01/03/17 Time of Encounter: 08:52 - Assessment and plan (1) PNA (pneumonia) Current Visit: Yes Status: Acute Assessment and plan: Evidenced clinically and on CXR Chest X-Ray 12/30/16 22:04 IMPRESSION: No significant change compared to prior radiograph. Stable nonspecific mild diffuse interstitial prominence, worse in the mid and lower lung zones. Otherwise no new or acute consolidation. Given her RA on MTX, advanced COPD, consideration of immunosuppressed state. Agree with continuing broad spectrum abx, deescalate to levaquin tomorrow. Check Resp infectious panel - negative Ordered for induced sputum sample, to be obtained by RT with hypertonic inhaled saline. Sent for UAT Strep and Legionella, Influenza A/B/[id number] and BC x 2- pending. 01/03/2017 Pneumonia in immunocompromised host. Also has underlying advanced stage IV Gold COPD. Admitted with COPD exacerbation. Presently on Zosyn/levofloxacin: D5 Uses BiPAP in the night. Was previously intubated 1. Plan We will continue antibiotics for now. We will continue steroids for now. We will continue bronchodilators for now Expected duration of about treatment should be 7 days. Qualifiers: Pneumonia type: due to unspecified organism Laterality: right Lung location: lower lobe of lung Qualified Code(s): J18.1 - Lobar pneumonia, unspecified organism (2) Acute exacerbation of chronic obstructive airways disease Current Visit: Yes Status: Acute Assessment and plan: Clinically with worsened sputum production, dyspnea. Solumedrol, taper as clinically warranted (3) Acute and chronic respiratory failure ([id number]) Current Visit: Yes Status: Acute Assessment and plan: Patient has advanced COPD, on daily prednisone and 4LNC supp O2 continuous. ABG @ 0315 7.43/64 Prior ABG pCO2 80's Recheck ABG - @ 11: 7. Patient still able to follow cmds and protect airway, will start biPAP, re- evaluate. 1hr BiPAP: @ 12:00 - 7.33/ Improved. 01/01/17 7.38/77, bicarb 38, improved OK to take off BiPAP for meals. Resume BiPAP intermittently during the daytime. BiPAP while asleep. Qualifiers: Respiratory failure complication: hypoxia and hypercapnia Qualified Code(s) : J96.21 - Acute and chronic respiratory failure with hypoxia; J96.22 - Acute and chronic respiratory failure with hypercapnia (4) Rheumatoid arthritis Current Visit: Yes Status: Chronic Assessment and plan: In setting of pna, holding MTX She is followed by Dr. Shannon as outpatient. Qualifiers: Rheumatoid arthritis location: wrist Rheumatoid factor presence: with rheumatoid factor Laterality: bilateral Qualified Code(s): M05.731 - Rheumatoid arthritis with rheumatoid factor of right wrist without organ or systems involvement; M05.732 - Rheumatoid arthritis with rheumatoid factor of left wrist without organ or systems involvement - Subjective Interval history: 01/03/2017 Seen and examined. Chart reviewed. Patient is comfortably sitting in the bed. has occasional dizziness, shortness of breath Denies chest pain, nausea, vomiting, abdominal pain and diarrhea. - Constitutional Vitals: Temp Pulse Resp BP Pulse Ox 98.4 F 61 29 148/84 99 01/03/17 07:07 01/03/17 07:07 01/03/17 07:07 01/03/17 07:07 01/03/17 07:07 General appearance: Present: disheveled, A&O X 3, pleasant, answers questions appropriately - Head Head exam: Present: atraumatic, normocephalic - Eye Eye exam: Present: PERRL, conjuntiva pink, sclera anicteric Pupils: Present: PERRL - Neck Neck exam general surgery: Present: supple, trachea midline. Absent: lymphadenopathy - Respiratory Respiratory exam: Present: CTAB. Absent: accessory muscle use, rales, rhonchi, wheezes - Cardiovascular Cardiovascular exam: Present: RRR, +S1, +S2. Absent: diastolic murmur, gallop, rubs, systolic murmur - GI/Abdominal GI/Abdominal exam: Present: normal bowel sounds, soft, no peritoneal signs. Absent: distended, tenderness - Extremities Exam Extremities exam: Present: warm, radial pulses palpable and symetrical. Absent : calf tenderness, cyanotic, pedal edema - Neurological Exam Neurological exam: Present: CN II-XII intact, oriented X3, no focal deficits. Absent: pronater drift, facial droop, speech deficit - Skin Skin exam: Present: dry, intact Internal Medicine: Result - Labs CBC & Chem 7: 01/03/17 04:07 01/03/17 04:07 Labs: Short CBC 01/03/17 Range/Units 04:07 WBC 11.0 (4.3-11.1) K/mcL Hgb 9.6 L (11.5-15.4) g/dL Hct 30.3 L (35.3-44.9) % Plt Count 315 (140-400) K/mcL Neutrophils # 8.8 (1.6-8.9) K/mcL BMP 01/03/17 04:07 Sodium 142 Potassium 3.3 L Chloride 95 L Carbon Dioxide 40 H* BUN 23 H Creatinine 0.76 Glucose 125 H Calcium 8.6 - ABG Interpretation ABG results: ABG ABG pH 7.38 pH Units (7.32-7.45) 01/01/17 04:45 ABG pCO2 77 mmHg (35-45) H* 01/01/17 04:45 ABG pO2 91 mmHg (85-104) 01/01/17 04:45 ABG O2 Saturation 97 % (95-98) 01/01/17 04:45 PT/INR, D-dimer PT 14.5 Seconds (9.4-12.1) H 12/30/16 22:31 Consult Discharge Plan - Plan Referrals: Jose G Toure MD [Primary Care Provider] -
[2017-01-03] MEDS: (Aclidinium Bromide [Tudorza Pressair] 400 MCG) IH SCH (10:02)
[2017-01-03] MEDS: Acetaminophen 325 MG TABLET PO PRN (10:05)
[2017-01-03] MEDS: Budesonide/Formoterol 160/4.5 MDI IH SCH (10:48)
[2017-01-03] MEDS: Insulin DETEMIR 100 UNIT/ML X5UNITS SQ SCH (21:59)
[2017-01-04] MEDS: Budesonide/Formoterol 160/4.5 MDI IH SCH ×3 (00:13→22:41)
[2017-01-04 04:59] LABS: Basophils % 0.2 %; Hematocrit 31.1 % (35.3-44.9); Hemoglobin 10.1 g/dL (11.5-15.4); Immature Granulocytes % 1.9 % (0-4); Lymphocytes % 7.9 %; Mean Corpuscular HGB Conc 32.5 g/dL (31.6-35.5); Mean Corpuscular Hemoglobin 29.3 pg (28.0-33.3); Mean Corpuscular Volume 90.1 fL (83.0-100.0); Mean Platelet Volume 10.1 fL (9.4-12.4); Monocytes # 0.7 K/mcL (0.0-1.3); Monocytes % 5.5 %; Neutrophils # 10.4 K/mcL (1.6-8.9); Platelet Count 349 K/mcL (140-400); Red Blood Count 3.45 M/mcL (3.82-4.97); Red Cell Distribution Width 13.2 % (11.5-14.5); Segmented Neutrophils % 84.5 %
[2017-01-04] MEDS: Ipratropium/Albuterol Neb 3 ML IH SCH ×4 (04:59→22:41)
[2017-01-04 05:30] LABS: Alanine Aminotransferase 6 Units/L (0-55); Albumin 2.7 g/dL (3.5-5.0); Albumin/Globulin Ratio 0.8 (1.1-2.2); Alkaline Phosphatase 60 Units/L (38-126); BUN/Creatinine Ratio 29 (6-26); Bilirubin,Total 0.2 mg/dL (0.2-1.2); Blood Urea Nitrogen 23 mg/dL (7-20); Calcium 8.6 mg/dL (8.6-10.8); Carbon Dioxide 39 mEq/L (19-29); Chloride 95 mEq/L (98-109); Globulin 3.4 g/dL (2.4-3.5); Glucose 137 mg/dL (70-99); Osmolality,Calculated 300 (280-300); Sodium 142 mEq/L (136-145); Total Protein 6.1 g/dL (6.0-8.3); eGFR For African Americans > 60 (> 60); eGFR For Non-African Americans > 60 (> 60)
[2017-01-04 05:32] LABS: Aspartate Amino Transferase 13 Units/L (5-34)
[2017-01-04] MEDS: *HR* Heparin 5,000 UNIT/ML VIAL SQ SCH ×3 (05:37→21:13)
[2017-01-04] MEDS: methylPREDNISolone 125 MG/2 ML VIAL IVP SCH (08:25)
[2017-01-04] MEDS: Levofloxacin 750 MG/150 ML 750 MG/150 ML BAG IVPB SCH (08:25)
[2017-01-04] MEDS: Folic Acid 1 MG TABLET PO SCH (08:26)
[2017-01-04] MEDS: amLODIPine 5 MG TABLET PO SCH (08:26)
[2017-01-04] MEDS: Aspirin Enteric Coated 325 MG Tablet PO SCH (08:26)
[2017-01-04] MEDS: Lactobacillus 1 EACH CAP.SPRINK PO SCH ×2 (08:27→21:14)
[2017-01-04] MEDS: Insulin LISPRO 300 UNITS/3 ML VIAL SQ SCH ×4 (08:27→21:14)
[2017-01-04] MEDS: BuPROPion SR (12 HR) 100 MG TABLET PO SCH ×2 (08:27→21:14)
[2017-01-04] MEDS: Gabapentin 300 MG CAPSULE PO SCH ×2 (08:27→21:14)
[2017-01-04] MEDS: Acetaminophen 325 MG TABLET PO PRN ×2 (08:41→16:32)
[2017-01-04] MEDS: predniSONE 20 MG TABLET PO SCH (16:31)
--- NOTE | 2017-01-04 16:33 | Podiatry Consult Note ---
Date of Encounter: 01/05/17 Time of Encounter: 16:10 Assessment and Plan (1) Onychomycosis Current visit: Yes Status: Acute #1 Exam and evaluate #2 Discuss and educate on diabetic foot care and necessity for daily inspection of skin. Discuss proper footwear fit and size. #3 Debridement of nails x 10 Length, width and thickness with nail nipper and nail regrinder operator to debulk nails to prevent infection/ulceration. No complication ensued. #4 Recommend patient f/u in three months in Podiatry clinic for diabetic foot care or sooner if increased redness, pain, open area or any other questions or concerns. (2) Subungual hematoma of great toe of left foot Current visit: Yes Status: Acute Subungual hematoma of the left great toe nail is dried and from nail bed. Light erythema to the proximal nail border secondary to pressure from loose mycotic toe nail. Pain alleviated after debridement of toe nail with nail nipper and regrinder operator. No open area. Recommend patient f/u in Podiatry clinic in three months for diabetic foot care or sooner if pain, increased redness, streaking, swelling, fever, chills, open area or any other questions or concerns. Qualifiers: Encounter type: subsequent encounter Qualified Code(s): S90.212D - Contusion of left great toe with damage to nail, subsequent encounter (3) DM type 2 with diabetic peripheral neuropathy Current visit: Yes Status: Acute History of Present Illness HPI: Ms. Jhaveri is a 71 year old female admitted to [facility] for COPD exacerbation. Patient has a medical history significant for DM with neuropathy. Patient was evaluated at the end of October during her most recent hospital admission for a subungual hematoma of the left great toe. Patient was instructed to f/u in Podiatry clinic for a toe nail debridement. Patient had not followed up and Podiatry was consulted today for a toe nail debridement. Toe nail #1 left with a dried subungual hematoma, toe nail is loose. No known injury or trauma. Patient has onychomycosis to toe nails #1 through #5 bilaterally. Patient states the left great toe nail is sore. Patients history of DM with neuropathy places her in a high risk category for self care. Past Med Surg Social Fam HX - Past Medical History Medical history: COPD, diabetes, hyperlipidemia, hypertension, thyroid disease, other (Psoriasis, rheumatoid arthritis) Psychiatric history: anxiety, depression - Past Surgical History Surgical History: cholecystectomy, other (Tubal ligation, local cord biopsy, bilateral cataract surgery) - Social History Smoking Status: Current every day smoker Packs per day: 2 cigs/day Smokeless Tobacco Status: No Alcohol use: none Drug use: other - Family History Father Living Status: Hx Family Cardiac Disorders: Yes (Stroke,) Hx Family Respiratory Disorders: Yes (COPD) Hx Family Endocrine Disorder: Yes (Diabetes) Mother Living Status: Cause of : [place] Hx Family Cardiac Disorders: Yes ([place]) Hx Family Cancer: Yes (Lung) Hx Family Endocrine Disorder: Yes (Hypothyroidism, diabetes) Medications and Allergies Aclidinium [place] [Tudorza Pressair] 400 mcg IH BID 11/16/16 [History] Albuterol Neb [Proventil Neb] 2.5 mg IH Q4H PRN 11/16/16 [History] Albuterol Sulfate [Ventolin Hfa] 2 puff IH Q4H PRN 11/16/16 [History] Amlodipine [Norvasc] 5 mg PO DAILY 11/16/16 [History] Aspirin Enteric Coated [Aspirin EC] 325 mg PO DAILY 11/16/16 [History] Atenolol [Tenormin] 25 mg PO DAILY 11/16/16 [History] BuPROPion SR (12 HR) [Wellbutrin SR] 200 mg PO BID 11/16/16 [History] Budesonide/Formoterol 160/4.5 [Symbicort 160/4.5] 2 puff IH BIDR 11/16/16 [ History] Ergocalciferol (VITAMIN D2) [Vitamin D2] 50,000 unit PO QWEEK 11/16/16 [History] Escitalopram [Lexapro] 20 mg PO DAILY 11/16/16 [History] Folic Acid 1 mg PO DAILY 11/16/16 [History] Gabapentin [Neurontin] 300 mg PO BID 11/16/16 [History] Ipratropium/Albuterol Neb [Duoneb] 3 ml IH Q6H PRN 11/16/16 [History] Lansoprazole [Prevacid] 30 mg PO DAILY 11/16/16 [History] Levothyroxine Sodium [Synthroid] 200 mcg PO QAM 11/16/16 [History] Linagliptin [Tradjenta] 5 mg PO DAILY 11/16/16 [History] Losartan/Hydrochlorothiazide [Hyzaar 100-25 Tablet] 1 each PO DAILY 11/16/16 [ History] Lovastatin [Mevacor] 20 mg PO QPM 11/16/16 [History] Metformin HCl [Metformin HCl ER] 1,500 mg PO DAILY 11/16/16 [History] Methotrexate [Otrexup] 12.5 mg PO QWEEK 11/16/16 [History] Potassium Chloride [Klor-Con 10] 10 meq PO TID 11/16/16 [History] LORazepam [Ativan] 1 mg PO QID PRN #30 tablet 11/25/16 [Rx] Alendronate Sodium [Fosamax] 70 mg PO QWEEK 12/31/16 [History] Roflumilast [Daliresp] 500 mcg PO DAILY 12/31/16 [History] Allergies No Known Allergies Allergy (Verified 12/31/16 02:29) All Systems Reviewed: A 10-system review of systems was performed and is negative for pertinent findings except as documented above in the HPI. Physical Exam - Constitutional Vitals: Temp Pulse Resp BP Pulse Ox 98.8 F 73 16 162/70 100 01/04/17 15:53 01/04/17 15:53 01/04/17 16:22 01/04/17 15:53 01/04/17 16:22 Exam: Dermatologic: NAIL PATHOLOGY: Nails #1 through #5 bilaterally are thick, discolored, and mycotic. Dried subungual hematoma to the left great toe, with light periwound erythema. Left great toe nail is separted from nail. S/p removal of toe nail revealed a dry nail bed, no open area. No streaking, no ascending cellulitis. No signs of bacterial infection.. ULCER: No signs of ulceration or open wound of either foot.. Podiatry General Exam: General appearance: alert awake oriented X 3. Calm and pleasant, no acute distress.. Vascular: Pedal pulses +1/4 DP/PT , No evidence of cyanosis, pallor or rubor, Edema graded at 1+/4, Skin temperature warm, Homans Sign negative, capillary refill time is immediate to digits.. Neurologic: Decreased epicritic sensation as evidenced by the SWMF 5.07. 28 CPS.. Musculoskeletal: Muscle strength 5/5 and equal bilaterally.. Integument: Skin with decreased turgor, decreased subcutaneous tissue, skin thin and shiny with trophic changes associated with comorbidities as described in history.. . Results - Labs Result Diagrams: 01/05/17 04:12 01/05/17 04:12 Labs: Abnormal lab results WBC 12.3 K/mcL (4.3-11.1) H 01/04/17 03:30 RBC 3.45 M/mcL (3.82-4.97) L 01/04/17 03:30 Hgb 10.1 g/dL (11.5-15.4) L 01/04/17 03:30 Hct 31.1 % (35.3-44.9) L 01/04/17 03:30 Neutrophils # 10.4 K/mcL (1.6-8.9) H 01/04/17 03:30 Toxic Granulation Present (Not Present) A 12/31/16 03:24 PT 14.5 Seconds (9.4-12.1) H 12/30/16 22:31 ABG pCO2 77 mmHg (35-45) H* 01/01/17 04:45 ABG HCO3 45.6 mEQ/L (21-27) H 01/01/17 04:45 ABG Total CO2 48.0 mEq/L (20-26) H 01/01/17 04:45 ABG Base Excess 17.2 mEq/L (-2.0 to 3.0) H 01/01/17 04:45 Chloride 95 mEq/L (98-109) L 01/04/17 03:30 Carbon Dioxide 39 mEq/L (19-29) H 01/04/17 03:30 BUN 23 mg/dL (7-20) H 01/04/17 03:30 BUN/Creatinine Ratio 29 (6-26) H 01/04/17 03:30 Glucose 137 mg/dL (70-99) H 01/04/17 03:30 POC Glucose 385 (58-89) H 01/04/17 11:15 B-Natriuretic Peptide 105 pg/mL (0-100) H 12/30/16 22:16 Albumin 2.7 g/dL (3.5-5.0) L 01/04/17 03:30 Albumin/Globulin Ratio 0.8 (1.1-2.2) L 01/04/17 03:30 Vancomycin Trough 21.5 mcg/mL (10-20) H* 01/01/17 14:54 H & H 01/04/17 Range/Units 03:30 Hgb 10.1 L (11.5-15.4) g/dL Hct 31.1 L (35.3-44.9) % All other labs normal. Consult Discharge Plan - Plan Referrals: Jose G Toure MD [Primary Care Provider] - 01/11/17 4:00 pm
--- NOTE | 2017-01-04 17:06 | Internal Med Progress Note ---
Date of Encounter: 01/04/17 Time of Encounter: 11:00 - Assessment and plan (1) Acute and chronic respiratory failure ([id number]) Current Visit: Yes Status: Acute Assessment and plan: Patient has advanced COPD, on daily prednisone and 4LNC supp O2 continuous. She seems to do much better with bipap. Will do bipap study tonight for further arrangements at discharge. Continue oxygen overnight. Qualifiers: Respiratory failure complication: hypoxia and hypercapnia Qualified Code(s) : J96.21 - Acute and chronic respiratory failure with hypoxia; J96.22 - Acute and chronic respiratory failure with hypercapnia (2) PNA (pneumonia) Current Visit: Yes Status: Acute Assessment and plan: Evidenced clinically and on CXR Pneumonia in immunocompromised host with severe COPD. Presently on IV abx and using bipap with improvement at night. Plan We will continue antibiotics for now. We will continue steroids for now. We will continue bronchodilators for now Expected duration of about treatment should be 7 days. Qualifiers: Pneumonia type: due to unspecified organism Laterality: right Lung location: lower lobe of lung Qualified Code(s): J18.1 - Lobar pneumonia, unspecified organism (3) Acute exacerbation of chronic obstructive airways disease Current Visit: Yes Status: Acute Assessment and plan: Tapering steroids today and changing to oral. Plan to wean as much as able but takes chronic prednisone. (4) Diabetes mellitus Current Visit: Yes Status: Chronic Assessment and plan: Continue current medications and coverage. 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 Qualifiers: Hypertension type: essential hypertension Qualified Code(s): I10 - Essential (primary) hypertension (6) Sepsis Current Visit: Yes Status: Resolved Qualifiers: Sepsis type: sepsis due to unspecified organism Qualified Code(s): A41.9 - Sepsis, unspecified organism (7) Rheumatoid arthritis Current Visit: Yes Status: Chronic Assessment and plan: In setting of pna, holding MTX She is followed by Dr. Shannon as outpatient. Qualifiers: Rheumatoid arthritis location: wrist Rheumatoid factor presence: with rheumatoid factor Laterality: bilateral Qualified Code(s): M05.731 - Rheumatoid arthritis with rheumatoid factor of right wrist without organ or systems involvement; M05.732 - Rheumatoid arthritis with rheumatoid factor of left wrist without organ or systems involvement (8) Moderate protein-calorie malnutrition Current Visit: Yes Status: Chronic Assessment and plan: Supportive care. - Subjective Interval history: Ms. Jhaveri is currently admitted for acute hypercarbic resp failure and acute exac COPD. She remains high risk due to potential for worsening respiratory status. Ms. Jhaveri feels the bipap really helps her breathing. She is not as short of breath when she has been wearing it. No fever or chills. Less cough. No GI symptoms. She does not have the bipap at home and would like to have it arranged if possible. - Constitutional Vitals: Temp Pulse Resp BP Pulse Ox 98.8 F 73 16 162/70 100 01/04/17 15:53 01/04/17 15:53 01/04/17 16:22 01/04/17 15:53 01/04/17 16:22 General appearance: Present: disheveled, A&O X 3, pleasant, answers questions appropriately - Head Head exam: Present: normocephalic - Eye Eye exam: Present: conjuntiva pink - ENT ENT exam: Present: mucous membranes moist - Respiratory Respiratory exam: Present: decreased breath sounds, prolonged expiratory phase, wheezes - Cardiovascular Cardiovascular exam: Present: RRR - GI/Abdominal GI/Abdominal exam: Present: soft. Absent: tenderness - Extremities Exam Extremities exam: Present: pedal edema, warm. Absent: tenderness - Neurological Exam Neurological exam: Present: alert, oriented X3, no focal deficits - Psychiatric Psychiatric exam: Present: normal affect, normal mood - Skin Skin exam: Present: warm. Absent: rash Internal Medicine: Result - Labs CBC & Chem 7: 01/04/17 03:30 01/04/17 03:30 Labs: Short CBC 01/04/17 Range/Units 03:30 WBC 12.3 H (4.3-11.1) K/mcL Hgb 10.1 L (11.5-15.4) g/dL Hct 31.1 L (35.3-44.9) % Plt Count 349 (140-400) K/mcL Neutrophils # 10.4 H (1.6-8.9) K/mcL BMP 01/04/17 03:30 Sodium 142 Potassium 4.0 Chloride 95 L Carbon Dioxide 39 H BUN 23 H Creatinine 0.80 Glucose 137 H Calcium 8.6 Liver Function 01/04/17 Range/Units 03:30 Total Bilirubin 0.2 (0.2-1.2) mg/dL AST 13 (5-34) Units/L ALT 6 (0-55) Units/L Alkaline Phosphatase 60 (38-126) Units/L Albumin 2.7 L (3.5-5.0) g/dL - ABG Interpretation ABG results: ABG ABG pH 7.38 pH Units (7.32-7.45) 01/01/17 04:45 ABG pCO2 77 mmHg (35-45) H* 01/01/17 04:45 ABG pO2 91 mmHg (85-104) 01/01/17 04:45 ABG O2 Saturation 97 % (95-98) 01/01/17 04:45 PT/INR, D-dimer PT 14.5 Seconds (9.4-12.1) H 12/30/16 22:31 Consult Discharge Plan - Plan Referrals: Jose G Toure MD [Primary Care Provider] - 01/11/17 4:00 pm
[2017-01-04] MEDS: Insulin LISPRO 300 UNITS/3 ML VIAL SQ ONE (18:17)
[2017-01-04] MEDS: Insulin DETEMIR 100 UNIT/ML X5UNITS SQ SCH (21:14)
[2017-01-05] MEDS: Ipratropium/Albuterol Neb 3 ML IH SCH ×3 (04:27→15:21)
[2017-01-05] MEDS: *HR* Heparin 5,000 UNIT/ML VIAL SQ SCH ×2 (05:12→16:26)
[2017-01-05 05:27] LABS: Basophils % 0.1 %; Hematocrit 35.2 % (35.3-44.9); Hemoglobin 11.1 g/dL (11.5-15.4); Immature Granulocytes % 2.2 % (0-4); Lymphocytes # 0.6 K/mcL (0.6-4.6); Lymphocytes % 4.2 %; Mean Corpuscular HGB Conc 31.5 g/dL (31.6-35.5); Mean Corpuscular Hemoglobin 28.3 pg (28.0-33.3); Mean Corpuscular Volume 89.8 fL (83.0-100.0); Mean Platelet Volume 9.9 fL (9.4-12.4); Monocytes # 0.4 K/mcL (0.0-1.3); Monocytes % 3.2 %; Neutrophils # 12.6 K/mcL (1.6-8.9); Platelet Count 413 K/mcL (140-400); Red Blood Count 3.92 M/mcL (3.82-4.97); Red Cell Distribution Width 13.1 % (11.5-14.5); Segmented Neutrophils % 90.3 %
[2017-01-05 05:46] LABS: Alanine Aminotransferase 10 Units/L (0-55); Alkaline Phosphatase 62 Units/L (38-126); Aspartate Amino Transferase 12 Units/L (5-34); BUN/Creatinine Ratio 29 (6-26); Bilirubin,Total 0.3 mg/dL (0.2-1.2); Blood Urea Nitrogen 25 mg/dL (7-20); Calcium 8.9 mg/dL (8.6-10.8); Carbon Dioxide 39 mEq/L (19-29); Chloride 93 mEq/L (98-109); Glucose 222 mg/dL (70-99); Osmolality,Calculated 301 (280-300); Sodium 140 mEq/L (136-145); eGFR For African Americans > 60 (> 60); eGFR For Non-African Americans > 60 (> 60)
[2017-01-05] MEDS: Aspirin Enteric Coated 325 MG Tablet PO SCH (09:13)
[2017-01-05] MEDS: BuPROPion SR (12 HR) 100 MG TABLET PO SCH (09:14)
[2017-01-05] MEDS: Lactobacillus 1 EACH CAP.SPRINK PO SCH (09:14)
[2017-01-05] MEDS: Levofloxacin 750 MG/150 ML 750 MG/150 ML BAG IVPB SCH (09:14)
[2017-01-05] MEDS: amLODIPine 5 MG TABLET PO SCH (09:14)
[2017-01-05] MEDS: Folic Acid 1 MG TABLET PO SCH (09:14)
[2017-01-05] MEDS: Gabapentin 300 MG CAPSULE PO SCH (09:14)
[2017-01-05] MEDS: Insulin LISPRO 300 UNITS/3 ML VIAL SQ SCH ×3 (09:15→16:26)
[2017-01-05] MEDS: Budesonide/Formoterol 160/4.5 MDI IH SCH (09:43)
[2017-01-05] MEDS: Acetaminophen 325 MG TABLET PO PRN (11:19)
--- NOTE | 2017-01-05 15:22 | Discharge Summary ---
Date of Encounter: 01/05/17 Time of Encounter: 15:20 - Discharge Diagnosis (1) Acute and chronic respiratory failure ([id number]) Priority: Primary Status: Acute Qualifiers: Respiratory failure complication: hypoxia and hypercapnia Qualified Code(s) : J96.21 - Acute and chronic respiratory failure with hypoxia; J96.22 - Acute and chronic respiratory failure with hypercapnia (2) PNA (pneumonia) Priority: Primary Status: Acute Qualifiers: Pneumonia type: due to unspecified organism Laterality: right Lung location: lower lobe of lung Qualified Code(s): J18.1 - Lobar pneumonia, unspecified organism (3) Acute exacerbation of chronic obstructive airways disease Priority: Primary Status: Acute (4) Diabetes mellitus Priority: Secondary Status: Chronic Qualifiers: Diabetes mellitus type: type 2 Diabetes mellitus complication status: with hyperglycemia Diabetes mellitus coil assembler insulin use: without coil assembler use Qualified Code(s): E11.65 - Type 2 diabetes mellitus with hyperglycemia (5) Hypertension Priority: Secondary Status: Chronic Qualifiers: Hypertension type: essential hypertension Qualified Code(s): I10 - Essential (primary) hypertension (6) Sepsis Priority: Primary Status: Resolved Qualifiers: Sepsis type: sepsis due to unspecified organism Qualified Code(s): A41.9 - Sepsis, unspecified organism (7) Rheumatoid arthritis Priority: Secondary Status: Chronic Qualifiers: Rheumatoid arthritis location: wrist Rheumatoid factor presence: with rheumatoid factor Laterality: bilateral Qualified Code(s): M05.731 - Rheumatoid arthritis with rheumatoid factor of right wrist without organ or systems involvement; M05.732 - Rheumatoid arthritis with rheumatoid factor of left wrist without organ or systems involvement (8) Moderate protein-calorie malnutrition Priority: Secondary Status: Chronic - Discharge Medications Prescriptions: GuaiFENesin ER [Mucinex] 600 mg PO BID #60 tbbp.12hr predniSONE [PredniSONE] See Taper PO Q24H #20 tablet Home Medications: Aclidinium [place] [Tudorza Pressair] 400 mcg IH BID 11/16/16 [History] Albuterol Neb [Proventil Neb] 2.5 mg IH Q4H PRN 11/16/16 [History] Albuterol Sulfate [Ventolin Hfa] 2 puff IH Q4H PRN 11/16/16 [History] Aspirin Enteric Coated [Aspirin EC] 325 mg PO DAILY 11/16/16 [History] Atenolol [Tenormin] 25 mg PO DAILY 11/16/16 [History] BuPROPion SR (12 HR) [Wellbutrin SR] 200 mg PO BID 11/16/16 [History] Budesonide/Formoterol 160/4.5 [Symbicort 160/4.5] 2 puff IH BIDR 11/16/16 [ History] Ergocalciferol (VITAMIN D2) [Vitamin D2] 50,000 unit PO QWEEK 11/16/16 [History] Escitalopram [Lexapro] 20 mg PO DAILY 11/16/16 [History] Folic Acid 1 mg PO DAILY 11/16/16 [History] Gabapentin [Neurontin] 300 mg PO BID 11/16/16 [History] Ipratropium/Albuterol Neb [Duoneb] 3 ml IH Q6H PRN 11/16/16 [History] Lansoprazole [Prevacid] 30 mg PO DAILY 11/16/16 [History] Levothyroxine Sodium [Synthroid] 200 mcg PO QAM 11/16/16 [History] Linagliptin [Tradjenta] 5 mg PO DAILY 11/16/16 [History] Losartan/Hydrochlorothiazide [Hyzaar 100-25 Tablet] 1 each PO DAILY 11/16/16 [ History] Lovastatin [Mevacor] 20 mg PO QPM 11/16/16 [History] Metformin HCl [Metformin HCl ER] 1,500 mg PO DAILY 11/16/16 [History] Methotrexate [Otrexup] 12.5 mg PO QWEEK 11/16/16 [History] Potassium Chloride [Klor-Con 10] 10 meq PO TID 11/16/16 [History] amLODIPine [Norvasc] 5 mg PO DAILY 11/16/16 [History] LORazepam [Ativan] 1 mg PO QID PRN #30 tablet 11/25/16 [Rx] Alendronate Sodium [Fosamax] 70 mg PO QWEEK 12/31/16 [History] Roflumilast [Daliresp] 500 mcg PO DAILY 12/31/16 [History] GuaiFENesin ER [Mucinex] 600 mg PO BID #60 tbbp.12hr 01/05/17 [Rx] predniSONE [PredniSONE] See Taper PO Q24H #20 tablet 01/05/17 [Rx] Allergies/Adverse Reactions: Allergies No Known Allergies Allergy (Verified 12/31/16 02:29) - Notes to Outpatient Provider Pt has been requiring insulin while on high dose steroids and may need coil assembler. Date of admission: 12/31/16 02:35 Primary care physician: Jose G Toure MD Consults: 12/31/16 09:21 Consult to Respiratory Therapy [CONS] Routine Reason for Consult: BiPAP at bedside - Advanced COPD, here with pna and COPD exacerbation - will be moving to 2NE -18 Call Completed: No 01/03/17 11:38 Consult to Podiatry [CONS] Routine Consulting Provider: Podiatry [facility] Reason for Consult: toenails Call Completed: No Discharging clinician: Chuck Gresham Anticipated date of discharge: 01/05/17 - Patient Status Disposition: Home Health Service Condition: Fair Functional capacity at discharge: independent ambulation Overall status at discharge: patient is progressing back to baseline - Discharge Instructions Follow Up With: Jose G Toure MD [Primary Care Provider] - 01/11/17 4:00 pm Forms: ED Satisfaction Letter - Diet and Activity Activity: increase activity as tolerated Diet: advance to your usual diet Hospital course: Ms. Jhaveri is a 71 year old female with hx of chronic hypoxic resp failure and RA on methotrexate presented to ED with 1 week history of increasing dyspnea. She had been hospitalized in 11/12 and required intubation and ventilation. She was evaluated in the ED and found to have pneumonia. She was then admitted for further treatment. Ms. Jhaveri was admitted to [facility]. She was started on aerosols, abx, steroids and bipap. She seemed to do well with the bipap and she had slow improvement in her symptoms. Her abx were de-escalated and her steroids were decreased. Blood sugars managed while on steroids. She had a study for bipap and arrangements were made for home use. On 01/05 she was afebrile with stable vitals. She was at baseline respiratory status. At that time she was felt ready for discharge home. Bipap to be arranged today. She will complete a course of abx and steroid taper. - Time Spent with Patient Total time spent providing and/or coordinating discharge services: 42min - Constitutional Vitals: Temp Pulse Resp BP Pulse Ox 98.2 F 71 16 159/94 93 01/05/17 07:01 01/05/17 07:01 01/05/17 09:44 01/05/17 07:01 01/05/17 09:44 General appearance: Present: disheveled, A&O X 3, pleasant, answers questions appropriately - Head Head exam: Present: normocephalic - Eye Eye exam: Present: conjuntiva pink - ENT ENT exam: Present: mucous membranes moist - Respiratory Respiratory exam: Present: decreased breath sounds, CTAB, prolonged expiratory phase. Absent: rales, wheezes - Cardiovascular Cardiovascular exam: Present: RRR. Absent: tachycardia - GI/Abdominal GI/Abdominal exam: Present: soft. Absent: tenderness - Extremities Exam Extremities exam: Present: warm. Absent: pedal edema, tenderness - Back Exam Additional comments: Increased thoracic kyphosis. - Neurological Exam Neurological exam: Present: alert, oriented X3 - Psychiatric Psychiatric exam: Present: normal affect, normal mood - Skin Skin exam: Present: warm. Absent: rash
[2017-01-05 15:51] VITALS: BP 147/62
--- NOTE | 2017-01-05 16:03 | Physician Discharge Referral ---
Home Health/Hosp Referral Info Transfer to: Home Health Attending Provider: Chuck Gresham DO Provider in Charge Post Discharge: PCP - Diagnosis (1) Acute and chronic respiratory failure ([id number]) Priority: Primary Status: Acute (2) PNA (pneumonia) Priority: Primary Status: Acute (3) Acute exacerbation of chronic obstructive airways disease Priority: Primary Status: Acute (4) Diabetes mellitus Priority: Secondary Status: Chronic (5) Hypertension Priority: Secondary Status: Chronic (6) Sepsis Priority: Primary Status: Resolved (7) Rheumatoid arthritis Priority: Secondary Status: Chronic (8) Moderate protein-calorie malnutrition Priority: Secondary Status: Chronic - Respiratory Orders Oxygen / L per min (Maintain saturation greater than 90%. Bipap at hs and naps. ) Smoking Cessation: Smoking cessation has been advised. For more information, call the [employer] Tobacco Quit Line at 4-392-ONVB-NOW. - Diet/Nutrition Diet/Nutrition Orders: No Concentrated Sweets - Activity Activity Orders: Up ad nazario - Services Needed Following services are medically necessary services: Nursing, Home Health Aide Home Care Orders: Follow blood sugars - Transfer Medications Prescriptions: GuaiFENesin ER [Mucinex] 600 mg PO BID #60 tbbp.12hr predniSONE [PredniSONE] See Taper PO Q24H #20 tablet Home Medications: Aclidinium [place] [Tudorza Pressair] 400 mcg IH BID 11/16/16 [History] Albuterol Neb [Proventil Neb] 2.5 mg IH Q4H PRN 11/16/16 [History] Albuterol Sulfate [Ventolin Hfa] 2 puff IH Q4H PRN 11/16/16 [History] Aspirin Enteric Coated [Aspirin EC] 325 mg PO DAILY 11/16/16 [History] Atenolol [Tenormin] 25 mg PO DAILY 11/16/16 [History] BuPROPion SR (12 HR) [Wellbutrin SR] 200 mg PO BID 11/16/16 [History] Budesonide/Formoterol 160/4.5 [Symbicort 160/4.5] 2 puff IH BIDR 11/16/16 [ History] Ergocalciferol (VITAMIN D2) [Vitamin D2] 50,000 unit PO QWEEK 11/16/16 [History] Escitalopram [Lexapro] 20 mg PO DAILY 11/16/16 [History] Folic Acid 1 mg PO DAILY 11/16/16 [History] Gabapentin [Neurontin] 300 mg PO BID 11/16/16 [History] Ipratropium/Albuterol Neb [Duoneb] 3 ml IH Q6H PRN 11/16/16 [History] Lansoprazole [Prevacid] 30 mg PO DAILY 11/16/16 [History] Levothyroxine Sodium [Synthroid] 200 mcg PO QAM 11/16/16 [History] Linagliptin [Tradjenta] 5 mg PO DAILY 11/16/16 [History] Losartan/Hydrochlorothiazide [Hyzaar 100-25 Tablet] 1 each PO DAILY 11/16/16 [ History] Lovastatin [Mevacor] 20 mg PO QPM 11/16/16 [History] Metformin HCl [Metformin HCl ER] 1,500 mg PO DAILY 11/16/16 [History] Methotrexate [Otrexup] 12.5 mg PO QWEEK 11/16/16 [History] Potassium Chloride [Klor-Con 10] 10 meq PO TID 11/16/16 [History] amLODIPine [Norvasc] 5 mg PO DAILY 11/16/16 [History] LORazepam [Ativan] 1 mg PO QID PRN #30 tablet 11/25/16 [Rx] Alendronate Sodium [Fosamax] 70 mg PO QWEEK 12/31/16 [History] Roflumilast [Daliresp] 500 mcg PO DAILY 12/31/16 [History] GuaiFENesin ER [Mucinex] 600 mg PO BID #60 tbbp.12hr 01/05/17 [Rx] predniSONE [PredniSONE] See Taper PO Q24H #20 tablet 01/05/17 [Rx] Allergies/Adverse Reactions: Allergies No Known Allergies Allergy (Verified 12/31/16 02:29) Certification: Further, I certify that my clinical findings support that this patient is homebound (i.e. absences from home require considerable and taxing effort and are for medical reasons or latter-day services or infrequently or short duration when for other reasons) because: Homebound Reason: Leaving home requires considerable and taxing effort due to condition, Severity of cardiac or pulmonary status limits activity tolerance Attestation: My signature below is to certify that this patient is under my care and that I, or nurse practitioner, or a physician's assistant tennis professional working with me, has a face-to -face encounter with this patient.
[2017-01-05] MEDS: Insulin LISPRO 300 UNITS/3 ML VIAL SQ ONE (16:22)
[2017-01-05] MEDS: predniSONE 20 MG TABLET PO SCH (16:26)
== END 2017-01-05 19:59 | disposition home health service (06) | DRG 720 ==
LOC: 2NENU 21:52 → EMEROO 21:52 → 2NENU 12-31 01:04 → SUATTDRO 12-31 02:35 → 2NENU 12-31 09:25
PROVIDERS: ADMIT Internal Medicine; ATTEND Internal Medicine

== ENCOUNTER 2017-01-21 00:45 | Inpatient (IN) ==
--- NOTE | 2017-01-21 01:33 | Emergency Department Note ---
Disposition Clinical Impression: Congestive heart failure Qualifiers: Congestive heart failure type: unspecified congestive heart failure type Congestive heart failure chronicity: unspecified congestive heart failure chronicity Qualified Code(s): I50.9 - Heart failure, unspecified Nicotine dependence Qualifiers: Nicotine product type: cigarettes Substance use status: unspecified nicotine- induced disorder Qualified Code(s): F17.219 - Nicotine dependence, cigarettes, with unspecified nicotine-induced disorders Disposition: Admitted As Inpatient Condition: Fair Time of Disposition: 04:18 SOB HPI - General Chief Complaint: ED Shortness of Breath/Dyspnea Stated Complaint: difficulty breathing Time Seen by Provider: 01/21/17 00:59 Source: EMS Mode of arrival: EMS Limitations: no limitations Nursing Notes Reviewed: Yes Vital Signs Reviewed: Yes - History of Present Illness Patient brought to the ED via EMS from home because of increased shortness of breath and difficulty in breathing. She has a history of CHF, DM. These current symptoms have been progressively worse over the last 2 days. She is on home oxygen at 4 l/min per n.c. She is able to answer questions, but is quite winded in doing so. She does have pedal edema all the time, but family seems to think it is worse tonight. Strong odor of cigarette smoke is on patient and all family members. She denies any chest pain or epigastric pain at this time. No nausea or vomiting. Pt Subjective Complaint: shortness of breath, cough Onset (ago): day(s) (2) Severity: severe Known history of: COPD, congestive heart failure, diabetes Associated symptoms: Reports: cough, sputum production. Denies: pain with inspiration, fever, lower extremity pain, nausea/vomiting Treatment prior to arrival: oxygen Cough present: Yes Cough Description: Involuntary, Bronchospastic, Wheezy Cough Frequency: Intermittent Sputum production: Yes Sputum Amount: Moderate Sputum Color: Clear - Related Data Home oxygen amount: 4 liters Home Medications Medication Instructions Recorded Confirmed Aclidinium [place] [Tudorza 400 mcg IH BID 11/16/16 12/31/16 Pressair] Albuterol Neb [Proventil Neb] 2.5 mg IH Q4H PRN 11/16/16 12/31/16 Albuterol Sulfate [Ventolin Hfa] 2 puff IH Q4H PRN 11/16/16 12/31/16 Aspirin Enteric Coated [Aspirin EC] 325 mg PO DAILY 11/16/16 12/31/16 Atenolol [Tenormin] 25 mg PO DAILY 11/16/16 12/31/16 BuPROPion SR (12 HR) [Wellbutrin 200 mg PO BID 11/16/16 12/31/16 SR] Budesonide/Formoterol 160/4.5 2 puff IH BIDR 11/16/16 12/31/16 [Symbicort 160/4.5] Escitalopram [Lexapro] 20 mg PO DAILY 11/16/16 12/31/16 Folic Acid 1 mg PO DAILY 11/16/16 12/31/16 Gabapentin [Neurontin] 300 mg PO BID 11/16/16 12/31/16 Ipratropium/Albuterol Neb [Duoneb] 3 ml IH Q6H PRN 11/16/16 12/31/16 Lansoprazole [Prevacid] 30 mg PO DAILY 11/16/16 12/31/16 Levothyroxine Sodium [Synthroid] 200 mcg PO QAM 11/16/16 12/31/16 Linagliptin [Tradjenta] 5 mg PO DAILY 11/16/16 12/31/16 Losartan/Hydrochlorothiazide 1 each PO DAILY 11/16/16 12/31/16 [Hyzaar 100-25 Tablet] Lovastatin [Mevacor] 20 mg PO QPM 11/16/16 12/31/16 Metformin HCl [Metformin HCl ER] 1,500 mg PO DAILY 11/16/16 12/31/16 Methotrexate [Otrexup] 12.5 mg PO QWEEK 11/16/16 12/31/16 Potassium Chloride [Klor-Con 10] 10 meq PO TID 11/16/16 12/31/16 amLODIPine [Norvasc] 5 mg PO DAILY 11/16/16 12/31/16 Alendronate Sodium [Fosamax] 70 mg PO QWEEK 12/31/16 12/31/16 Albuterol Sulfate [Ventolin Hfa] 2 puff IH Q4H PRN 01/21/17 01/21/17 Cholecalciferol (Vitamin D3) 50,000 unit PO QWEEK 01/21/17 01/21/17 [Vitamin D3] LORazepam [Ativan] 1 mg PO TID 01/21/17 01/21/17 lamoTRIgine [Lamotrigine] 100 mg PO DAILY 01/21/17 01/21/17 predniSONE [PredniSONE] See Taper PO DAILY 01/21/17 01/21/17 Allergies Allergy/AdvReac Type Severity Reaction Status Date / Time No Known Allergies Allergy Verified 01/21/17 03:23 All systems ED: reviewed and negative except as stated. Constitutional: Denies: fever, chills, weakness, weight change ENT ED: Denies: ear pain, throat pain, dental pain, hearing loss, epistaxis, congestion, dysphagia Cardiovascular: Denies: chest pain, palpitations, dyspnea on exertion, edema, syncope Respiratory: Reports: cough, dyspnea, wheezes, sputum production Gastrointestinal: Denies: abdominal pain, nausea, vomiting, diarrhea, constipation, hematemesis, melena, hematochezia Past Medical History - Past Medical History Attestation: Yes The following information was validated with the patient. Source: patient, nursing notes reviewed Medical history: Reports: COPD, diabetes, hyperlipidemia, hypertension, thyroid disease, other Surgical history: Reports: cholecystectomy, other (Tubal ligation, local cord biopsy, bilateral cataract surgery) Psychiatric history: Reports: anxiety, depression - Social History Smoking Status: Current every day smoker Smokeless Tobacco Status: No Alcohol use: Reports: none Drug use: Reports: none Physical Exam - General Limitations: no limitations General appearance: alert - Head Head exam: atraumatic, normocephalic, normal inspection - Eye Eye exam: Present: normal appearance, PERRL, EOMI - ENT ENT exam: normal exam, normal oropharynx, mucous membranes moist - Neck Neck exam: Present: normal inspection, full ROM, trachea midline - Chest Chest inspection: Present: normal inspection, symmetric chest wall rise - Respiratory Respiratory exam: Present: wheezes, accessory muscle use, prolonged expiratory phase - Cardiovascular Cardiovascular exam: Present: regular rate, normal rhythm, normal heart sounds - Abdominal Exam Abdominal exam: Present: soft, Non-Tender. Absent: tenderness, distention, guarding, rebound, rigidity - Extremities Exam Extremities exam: Present: normal inspection, full ROM, pedal edema (2+ to 3+). Absent: tenderness - Expanded Lower Extremity Exam Hip/Pelvis exam: Present: normal inspection, full ROM Upper leg exam: Present: normal inspection, full ROM Knee exam: Present: normal inspection, full ROM Lower leg exam: Present: normal inspection, full ROM Ankle exam: Present: normal inspection, full ROM Foot/toe exam: Present: normal inspection, full ROM Neurovascular/Tendon exam: Absent: motor deficit, sensory deficit, tendon deficit - Back Exam Back exam: Present: normal inspection, full ROM. Absent: tenderness - Neurological Exam Neurological exam: Present: alert, oriented X3, CN II-XII intact, reflexes normal - Psychiatric Psychiatric exam: Present: normal affect, normal mood - Skin Skin exam: Present: warm, dry, intact, normal color Course - Consultations Consultation #1: spoke with hospitalist who accepted her as a patient. Time: 03:18 Vital Signs Temperature 98.1 F 01/21/17 01:08 Pulse Rate 119 01/21/17 01:08 Respiratory Rate 22 01/21/17 01:08 Blood Pressure 155/93 01/21/17 01:08 O2 Sat by Pulse Oximetry 96 01/21/17 01:08 Temperature 98.1 F 01/21/17 04:11 Pulse Rate 103 01/21/17 04:11 Respiratory Rate 22 01/21/17 04:11 Blood Pressure 146/80 01/21/17 04:11 O2 Sat by Pulse Oximetry 95 01/21/17 04:11 Oxygen Delivery Oxygen Delivery Nasal Cannula Shortness of Breath/Dyspnea - Differential Diagnosis Likely: congestive heart failure - Lab Data Lab results reviewed: Yes I reviewed the patient's lab results. Result diagrams: 01/21/17 02:25 01/21/17 02:25 Lab Results 01/21/17 01/21/17 01/21/17 Range/Units 02:25 02:25 02:25 WBC 6.6 (4.3-11.1) K/mcL RBC 3.09 L (3.82-4.97) M/mcL Hgb 9.0 L (11.5-15.4) g/dL Hct 28.6 L (35.3-44.9) % MCV 92.6 (83.0-100.0) fL MCH 29.1 (28.0-33.3) pg MCHC 31.5 L (31.6-35.5) g/dL RDW 14.2 (11.5-14.5) % Plt Count 210 (140-400) K/mcL MPV 9.7 (9.4-12.4) fL Immature Gran % 0.6 (0-4) % Seg Neutrophils % 81.7 % Lymphocytes % 11.8 % Monocytes % 4.2 % Eosinophils % 1.5 % Basophils % 0.2 % Neutrophils # 5.4 (1.6-8.9) K/mcL Lymphocytes # 0.8 (0.6-4.6) K/mcL Monocytes # 0.3 (0.0-1.3) K/mcL Eosinophils # 0.1 (0.0-0.6) K/mcL Basophils # 0.0 (0.0-0.2) K/mcL PT 12.2 H (9.4-12.1) Seconds INR 1.1 APTT 23.7 L (26.0-36.0) Seconds Sodium 141 (136-145) mEq/L Potassium 3.4 L (3.5-4.5) mEq/L Chloride 99 (98-109) mEq/L Carbon Dioxide 28 (19-29) mEq/L BUN 21 H (7-20) mg/dL Creatinine 0.87 (0.57-1.11) mg/dL Est GFR ( Amer) > 60 (> 60) Est GFR (Non-Af Amer) > 60 (> 60) BUN/Creatinine Ratio 24 (6-26) Glucose 254 H (70-99) mg/dL Calculated Osmolality 304 H (280-300) Lactic Acid (0.5-2.2) mmol/L Calcium 9.2 (8.6-10.8) mg/dL Troponin I (0-0.03) ng/mL B-Natriuretic Peptide (0-100) pg/mL 01/21/17 01/21/17 01/21/17 Range/Units 02:25 02:25 03:11 WBC (4.3-11.1) K/mcL RBC (3.82-4.97) M/mcL Hgb (11.5-15.4) g/dL Hct (35.3-44.9) % MCV (83.0-100.0) fL MCH (28.0-33.3) pg MCHC (31.6-35.5) g/dL RDW (11.5-14.5) % Plt Count (140-400) K/mcL MPV (9.4-12.4) fL Immature Gran % (0-4) % Seg Neutrophils % % Lymphocytes % % Monocytes % % Eosinophils % % Basophils % % Neutrophils # (1.6-8.9) K/mcL Lymphocytes # (0.6-4.6) K/mcL Monocytes # (0.0-1.3) K/mcL Eosinophils # (0.0-0.6) K/mcL Basophils # (0.0-0.2) K/mcL PT (9.4-12.1) Seconds INR APTT (26.0-36.0) Seconds Sodium (136-145) mEq/L Potassium (3.5-4.5) mEq/L Chloride (98-109) mEq/L Carbon Dioxide (19-29) mEq/L BUN (7-20) mg/dL Creatinine (0.57-1.11) mg/dL Est GFR ( Amer) (> 60) Est GFR (Non-Af Amer) (> 60) BUN/Creatinine Ratio (6-26) Glucose (70-99) mg/dL Calculated Osmolality (280-300) Lactic Acid 1.6 (0.5-2.2) mmol/L Calcium (8.6-10.8) mg/dL Troponin I 0.02 (0-0.03) ng/mL B-Natriuretic Peptide 43 (0-100) pg/mL - Radiology Data Radiology results reviewed: Yes I reviewed the patient's radiology results. - EKG Data EKG attestation: Yes I reviewed and interpreted this EKG. EKG shows normal: Reports: sinus rhythm Rate: Reports: tachycardia Rhythm: Reports: PVC's Attestation Statement - Attestation Attestation: I, Javier Dutta MD, personally evaluated this patient and discussed their management with the midlevel provicer, PAC/MATERIAL MAN. I reviewed the midlevel provider 's note and agree with the documented findings, medical decision making, and plan of care. 71-year-old female presents to the emergency department with a complaint of increased shortness of breath over the past 2 days. Increased swelling of her feet and ankles. No chest pain. No increased cough or fever. History of COPD and CHF and is on home oxygen. On examination patient is a well-developed well-nourished elderly female in no acute distress. She is alert and oriented 3. There is no cyanosis or diaphoresis. She is mildly tachypneic on oxygen. Breath sounds are decreased bilaterally with some bibasilar rales. No wheezes noted. Heart regular with a mild tachycardia. Abdomen soft with normal bowel sounds. Bilateral pedal edema. Chest x-ray read as CHF. No acute changes on EKG. Labs reviewed. The hospitalist, Dr. Carlson, was consulted and accepted admission of the patient.
[2017-01-21] MEDS ORDERED: Furosemide 40 MG/4 ML VIAL IVP ONE (01:46)
[2017-01-21] MEDS ORDERED: 0.9 % Sodium Chloride 500 ML IVC SCH (02:00)
[2017-01-21 02:34] LABS: Basophils % 0.2 %; Eosinophils # 0.1 K/mcL (0.0-0.6); Eosinophils % 1.5 %; Hematocrit 28.6 % (35.3-44.9); Immature Granulocytes % 0.6 % (0-4); Lymphocytes # 0.8 K/mcL (0.6-4.6); Lymphocytes % 11.8 %; Mean Corpuscular HGB Conc 31.5 g/dL (31.6-35.5); Mean Corpuscular Hemoglobin 29.1 pg (28.0-33.3); Mean Corpuscular Volume 92.6 fL (83.0-100.0); Mean Platelet Volume 9.7 fL (9.4-12.4); Monocytes # 0.3 K/mcL (0.0-1.3); Monocytes % 4.2 %; Neutrophils # 5.4 K/mcL (1.6-8.9); Platelet Count 210 K/mcL (140-400); Red Blood Count 3.09 M/mcL (3.82-4.97); Red Cell Distribution Width 14.2 % (11.5-14.5); Segmented Neutrophils % 81.7 %
[2017-01-21 02:42] LABS: INR 1.1; Prothrombin Time 12.2 Seconds (9.4-12.1)
[2017-01-21 02:44] LABS: Activated Partial Thrombo Time 23.7 Seconds (26.0-36.0)
[2017-01-21 03:04] LABS: BUN/Creatinine Ratio 24 (6-26); Blood Urea Nitrogen 21 mg/dL (7-20); Calcium 9.2 mg/dL (8.6-10.8); Carbon Dioxide 28 mEq/L (19-29); Chloride 99 mEq/L (98-109); Glucose 254 mg/dL (70-99); Osmolality,Calculated 304 (280-300); Potassium 3.4 mEq/L (3.5-4.5); Sodium 141 mEq/L (136-145); eGFR For African Americans > 60 (> 60); eGFR For Non-African Americans > 60 (> 60)
[2017-01-21] MEDS ORDERED: Acetaminophen 325 MG TABLET PO PRN (04:34)
[2017-01-21] MEDS ORDERED: Naloxone 0.4 MG/ML INJ IVP PRN (04:34)
[2017-01-21] MEDS ORDERED: 0.9 % Sodium Chloride 1,000 ML IVC SCH (04:45)
--- NOTE | 2017-01-21 04:56 | Internal Med History&Physical ---
Date of Encounter: 01/21/17 Time of Encounter: 04:45 Assessment and Plan (1) Dyspnea Current visit: Yes Status: Acute At this point her failure is at the top of the differential however the patient does not appear to be in overt heart failure so other causes of dyspnea will be investigated. We will check a d-dimer and if positive patient will likely need a CTA to rule out PE. CT would also evaluate for interstitial lung disease related to rheumatoid arthritis or methotrexate therapy. This does not appear to be a COPD exacerbation. EKG shows sinus tachycardia with PVCs, no signs of ischemia, troponin is negative. Will diuresis, institute fluid restriction diet , strict I's and O's, daily weights. Qualifiers: Dyspnea type: shortness of breath Qualified Code(s): R06.02 - Shortness of breath (2) COPD (chronic obstructive pulmonary disease) Current visit: Yes Status: Acute Does not appear to be in acute exacerbation. We will continue aerosol treatments. Patient does continue to smoke, is down to 2 cigarettes a day. Qualifiers: COPD type: emphysema Emphysema type: unspecified Qualified Code(s): J43.9 - Emphysema, unspecified (3) Diabetes mellitus Current visit: No Status: Chronic Blood sugar elevated on presentation. We will hold oral hyperglycemic medications and institute moderate dose sliding scale. Adjust insulin based on blood sugar readings. Qualifiers: Diabetes mellitus type: type 2 Diabetes mellitus complication status: with hyperglycemia Diabetes mellitus ferry terminal supervisor insulin use: without ferry terminal supervisor use Qualified Code(s): E11.65 - Type 2 diabetes mellitus with hyperglycemia (4) Diastolic heart failure Current visit: No Status: Chronic Questionable if the patient's symptoms are related to her diastolic heart failure as discussed above. Most recent echo was in October 2016 which showed a normal EF with mild diastolic dysfunction. We will hold off on repeating at this time. Chest x-ray was read as pulmonary edema however upon comparison to previous chest x-rays it appears unchanged. Qualifiers: Heart failure chronicity: unspecified heart failure chronicity Qualified Code(s): I50.30 - Unspecified diastolic (congestive) heart failure (5) KASIE (obstructive sleep apnea) Current visit: No Status: Chronic Patient uses BiPAP at home, we will continue BiPAP at night. (6) Hypothyroidism Current visit: No Status: Acute Check TSH. Continue Synthroid. Qualifiers: Hypothyroidism type: unspecified Qualified Code(s): E03.9 - Hypothyroidism , unspecified (7) Rheumatoid arthritis Current visit: No Status: Chronic On methotrexate therapy. No evidence of worsening of symptoms. Qualifiers: Rheumatoid arthritis location: wrist Rheumatoid factor presence: with rheumatoid factor Laterality: bilateral Qualified Code(s): M05.731 - Rheumatoid arthritis with rheumatoid factor of right wrist without organ or systems involvement; M05.732 - Rheumatoid arthritis with rheumatoid factor of left wrist without organ or systems involvement (8) DVT prophylaxis Current visit: No Status: Acute Heparin 5000 units subcutaneous twice a day Internal Medicine - H&P: HPI Chief complaint: Dyspnea Admitted From: Emergency Dept Plans for Post Hospital Care: Home History of present illness: Ms. Jhaveri is a 71 year old female with history of COPD, rheumatoid arthritis, CHF presents with shortness of breath. Patient states that the shortness of breath developed yesterday while at rest all of a sudden and has gradually been getting worse. Patient also complains of an occasional tightness in her chest that does not radiate and was not associated with inspiration. Patient reports no change in her chronic cough which is sometimes productive with white phlegm. She also reports lower extremity swelling that has been increasing. Patient states that normally her right leg is more swollen than her left leg but recently her left leg seems to be more swollen than her right leg. Patient received Lasix in the emergency department she states that she feels better. She denies fever, chills, abdominal pain, nausea, vomiting, diarrhea, dysuria. Past Med Surg Social Fam HX - Past Medical History Medical history: COPD, diabetes, hyperlipidemia, hypertension, thyroid disease, other Psychiatric history: anxiety, depression - Past Surgical History Surgical History: cholecystectomy, other (Tubal ligation, local cord biopsy, bilateral cataract surgery) - Social History Smoking Status: Current every day smoker Smokeless Tobacco Status: No Alcohol use: none Drug use: none - Family History Father Living Status: Hx Family Cardiac Disorders: Yes (Stroke,) Hx Family Respiratory Disorders: Yes (COPD) Hx Family Endocrine Disorder: Yes (Diabetes) Mother Living Status: Hx Family Cardiac Disorders: Yes ([place]) Hx Family Cancer: Yes (Lung) Hx Family Endocrine Disorder: Yes (Hypothyroidism, diabetes) Internal Medicine - H&P: Meds Aclidinium [place] [Tudorza Pressair] 400 mcg IH BID 11/16/16 [History] Albuterol Neb [Proventil Neb] 2.5 mg IH QID 11/16/16 [History] Albuterol Sulfate [Ventolin Hfa] 2 puff IH QID 11/16/16 [History] Aspirin Enteric Coated [Aspirin EC] 325 mg PO DAILY 11/16/16 [History] Atenolol [Tenormin] 25 mg PO DAILY 11/16/16 [History] BuPROPion SR (12 HR) [Wellbutrin SR] 200 mg PO BID 11/16/16 [History] Budesonide/Formoterol 160/4.5 [Symbicort 160/4.5] 2 puff IH BIDR 11/16/16 [ History] Escitalopram [Lexapro] 20 mg PO DAILY 11/16/16 [History] Folic Acid 1 mg PO DAILY 11/16/16 [History] Gabapentin [Neurontin] 300 mg PO BID 11/16/16 [History] Ipratropium/Albuterol Neb [Duoneb] 3 ml IH QID 11/16/16 [History] Lansoprazole [Prevacid] 30 mg PO DAILY 11/16/16 [History] Levothyroxine Sodium [Synthroid] 200 mcg PO QAM 11/16/16 [History] Linagliptin [Tradjenta] 5 mg PO DAILY 11/16/16 [History] Losartan/Hydrochlorothiazide [Hyzaar 100-25 Tablet] 1 each PO DAILY 11/16/16 [ History] Lovastatin [Mevacor] 20 mg PO QPM 11/16/16 [History] Metformin HCl [Metformin HCl ER] 1,500 mg PO DAILY 11/16/16 [History] Methotrexate [Otrexup] 12.5 mg PO QWEEK 11/16/16 [History] Potassium Chloride [Klor-Con 10] 10 meq PO TID 11/16/16 [History] amLODIPine [Norvasc] 5 mg PO DAILY 11/16/16 [History] Alendronate Sodium [Fosamax] 70 mg PO QWEEK 12/31/16 [History] Albuterol Sulfate [Ventolin Hfa] 2 puff IH Q4H PRN 01/21/17 [History] Cholecalciferol (Vitamin D3) [Vitamin D3] 50,000 unit PO QWEEK 01/21/17 [History ] LORazepam [Ativan] 1 mg PO TID 01/21/17 [History] lamoTRIgine [Lamotrigine] 100 mg PO DAILY 01/21/17 [History] predniSONE [PredniSONE] See Taper PO DAILY 01/21/17 [History] Allergies No Known Allergies Allergy (Verified 01/21/17 03:23) All Systems PM: A 10-system review of systems was performed and is negative for pertinent findings except as documented above in the HPI. - Constitutional Constitutional: no chills, no fever(s) - EENT Eyes: no blurry vision, no change in vision Nose, mouth and throat: no sinus pain, no sinus pressure, no sore throat - Cardiovascular Cardiovascular ROS IM: chest pain, dyspnea, dyspnea on exertion, edema, no orthopnea, no palpitations, no syncope - Respiratory Respiratory: cough, dyspnea, no hemoptysis, no wheezing, no pain on inspiration , no chest congestion, no excessive phlegm production, no change in phlegm color , no pain with cough - Gastrointestinal Gastrointestinal: no abdominal pain, no diarrhea, no nausea, no vomiting - Genitourinary Genitourinary: no dysuria, no hematuria - Musculoskeletal Musculoskeletal ROS IM: back pain, no numbness, no tingling - Integumentary Integumentary IM: no erythema, no new lesions, no rash - Neurological Neurological ROS: no dizziness, no focal weakness, no numbness, no weakness - Endocrine Endocrine IM: no polydipsia, no polyuria - Hematologic/Lymphatic Hematologic/Lymphatic: no easy bleeding, no easy bruising - Constitutional Vitals: Temp Pulse Resp BP Pulse Ox 98.1 F 103 22 146/80 95 01/21/17 04:11 01/21/17 04:11 01/21/17 04:11 01/21/17 04:11 01/21/17 04:11 General appearance: Present: A&O X 3, pleasant, no acute distress - Head Head exam: Present: atraumatic, normal inspection, normocephalic - Eye Eye exam: Present: EOMI, PERRL - ENT ENT exam: Present: mucous membranes moist - Neck Neck exam general surgery: Present: supple - Respiratory Respiratory exam: Present: decreased breath sounds, wheezes (Occasional scattered). Absent: rales, respiratory distress, rhonchi, tachypnea - Cardiovascular Cardiovascular exam: Present: irregular rhythm, tachycardia. Absent: gallop, rubs, systolic murmur - GI/Abdominal GI/Abdominal exam: Present: normal bowel sounds, soft. Absent: distended, tenderness - Extremities Exam Extremities exam: Present: pedal edema (2+), warm (The left lower extremity does feel slightly warmer than the right lower extremity). Absent: calf tenderness (Homans sign negative), tenderness - Neurological Exam Neurological exam: Present: alert, CN II-XII intact, oriented X3, no focal deficits - Skin Skin exam: Present: dry, intact, warm Internal Med - H&P Results - Labs CBC & Chem 7: 01/21/17 02:25 01/21/17 02:25
[2017-01-21] MEDS ORDERED: Dextrose Gel 15 GM PO PRN ×2 (05:15)
[2017-01-21] MEDS ORDERED: D5% in Water 1,000 ML IVC PRN (05:15)
[2017-01-21] MEDS ORDERED: *HR* Dextrose 50 % in Water (Syg) 50 ML SYRINGE IVP PRN (05:15)
[2017-01-21] MEDS: *HR* OxyCODONE Immed Rel 5 MG TABLET PO PRN ×2 (05:16→12:10)
[2017-01-21] MEDS: *HR* Heparin 5,000 UNIT/ML VIAL SQ SCH ×2 (05:26→17:32)
[2017-01-21] MEDS: Ipratropium/Albuterol Neb 3 ML IH SCH ×6 (05:32→23:52)
--- NOTE | 2017-01-21 06:53 | Event Note ---
Date of Encounter: 01/21/17 Time of Encounter: 06:51 Patient seen and examined. Acute CHF exacerbation. lasix recently discontinued. Will give IV lasix. D-dimer is elevated, will do VQ scan because of my low suspicion for PE. She wants to discuss code status with daughter.
[2017-01-21] MEDS: Losartan/HCTZ 50-12.5 TABLET PO SCH (08:51)
[2017-01-21] MEDS: *HR* LORazepam 1 MG TABLET PO SCH (08:52)
[2017-01-21] MEDS: Aspirin Enteric Coated 325 MG Tablet PO SCH (08:52)
[2017-01-21] MEDS: amLODIPine 5 MG TABLET PO SCH (08:52)
[2017-01-21] MEDS: BuPROPion SR (12 HR) 100 MG TABLET PO SCH ×2 (08:52→19:16)
[2017-01-21] MEDS: Furosemide 20 MG/2 ML VIAL IVP SCH ×2 (08:52→17:29)
[2017-01-21] MEDS: lamoTRIgine 100 MG TABLET PO SCH (08:52)
[2017-01-21] MEDS: Folic Acid 1 MG TABLET PO SCH (08:52)
[2017-01-21] MEDS: Insulin LISPRO 300 UNITS/3 ML VIAL SQ SCH ×4 (08:52→19:53)
[2017-01-21] MEDS: Gabapentin 300 MG CAPSULE PO SCH ×2 (08:52→19:16)
[2017-01-21] MEDS: Budesonide/Formoterol 160/4.5 MDI IH SCH ×2 (10:39→20:12)
--- NOTE | 2017-01-21 11:22 | Event Note ---
Date of Encounter: 01/21/17 Time of Encounter: 11:00 Patient doing better today compared to yesterday. Unable to tolerate VQ scan as she was unable to lie flat. We will change his imaging study to CT angiogram to look for PE. We will also get venous Dopplers. Continue current management with diuretics and bronchodilators along with O2 supplementation to treat both CHF and COPD.
[2017-01-21] MEDS ORDERED: methylPREDNISolone 125 MG/2 ML VIAL IVP ONE (16:16)
[2017-01-21] MEDS ORDERED: methylPREDNISolone 125 MG/2 ML VIAL IVP SCH (16:38)
--- NOTE | 2017-01-21 16:42 | Electrocardiograph Report ---
[address] [address] Test Date: 2017-01-21 Pat Name: Lilly Jhaveri Department: 105 Room: 3B37 Gender: F [place] Treater: KIRAN : 1945 Requested By: Beverly Goldman Order Number: [id number] Reading MD: Linda Jeffery Measurements Intervals [place] Rate: 118 P: 72 MT: 155 QRS: 17 QRSD: 83 T: 91 QT: 321 QTc: 391 Interpretive Statements SINUS TACHYCARDIA WITH OCCASIONAL SUPRAVENTRICULAR PREMATURE COMPLEXES ABNORMAL QRS-T ANGLE [QRS-T AXIS DIFFERENCE > 60] Electronically Signed On 01-21-2017 16:40:27 EDT by Linda Jeffery
--- NOTE | 2017-01-21 16:43 | Pulmonology Consult Note ---
Date of Encounter: 01/21/17 Time of Encounter: 16:43 Assessment and Plan (1) Acute respiratory failure with hypoxia and hypercapnia Current Visit: No Status: Acute likely secondary to advanced COPD and CHF exacerbation initial ABG 7.29/88/73/42.3/93/1.7 - repeat ABG in 1 hour continue BiPAP trial Precedex for agitation and sedation if clinically worsens, recommend endotracheal intubation ddimer elevated 771 but clinically appears to be COPD exacerbation (2) Encephalopathy Current Visit: Yes Status: Acute likely secondary to CO2 narcosis patient is afebrile electrolytes unremarkable Cr 0.87 lactate normal history of DM, continue to monitor glucose not on chronic AC, non focal neuro exam (3) Acute exacerbation of chronic obstructive airways disease Current Visit: No Status: Acute history of COPD, 3L home oxygen supplementation scheduled bronchodilators IV steroids 60mg q6hr patient is afebrile start on Azithromycin awaiting ABG now and repeat 1 hour currently awake and restless on BiPAP Precedex for sedation and agitation if ABG worsens or becomes unresponsive, recommend endotracheal intubation (4) Diastolic heart failure Current Visit: No Status: Chronic 11/17/2016 ECHO EF 65% with normal LV size and fucntion, mild diastolic dysfunction, mild TR, moderate pulmonary hypertension RVSP 47 mmHg IV lasix vaughn placed strict I/Os Qualifiers: Heart failure chronicity: unspecified heart failure chronicity Qualified Code(s): I50.30 - Unspecified diastolic (congestive) heart failure (5) KASIE (obstructive sleep apnea) Current Visit: No Status: Chronic BiPAP at home (6) Diabetes mellitus Current Visit: No Status: Chronic ISS ordered accucheck ACHS continue to monitor Qualifiers: Diabetes mellitus type: type 2 Diabetes mellitus complication status: with hyperglycemia Diabetes mellitus fpc insulin use: without exterminator termite use Qualified Code(s): E11.65 - Type 2 diabetes mellitus with hyperglycemia (7) Hypertension Current Visit: No Status: Chronic continue home medications BPs stable Qualifiers: Hypertension type: essential hypertension Qualified Code(s): I10 - Essential (primary) hypertension (8) Hypothyroidism Current Visit: No Status: Acute TSH 0.406 continue home medications Qualifiers: Hypothyroidism type: unspecified Qualified Code(s): E03.9 - Hypothyroidism , unspecified (9) Rheumatoid arthritis Current Visit: No Status: Chronic takes Methotrexate continue home medications immunosuppressed, start on Azithromycin for COPD Qualifiers: Rheumatoid arthritis location: wrist Rheumatoid factor presence: with rheumatoid factor Laterality: bilateral Qualified Code(s): M05.731 - Rheumatoid arthritis with rheumatoid factor of right wrist without organ or systems involvement; M05.732 - Rheumatoid arthritis with rheumatoid factor of left wrist without organ or systems involvement (10) DVT prophylaxis Current Visit: No Status: Acute Heparin SQ History of Present Illness Consult date: 01/21/17 Requesting physician: Reggie Jeter Reason for consult: dyspnea, COPD, other (respiratory failure) Chief complaint: dyspnea History of present illness: 71-year-old female history of DCHF, DM, HTN, COPD on 4L home oxygenation and hypothyroidism admitted to [facility] for progressive dyspnea, combination of CHF versus COPD exacerbation. Patient reports shortness of breath over the past 2 days that has gradually worsened. She has been using her inhalers more frequently without much relief. Reports increase cough production as well as increased swelling in her lower extremities. Denies any fevers, chest pain, abdominal pain, nausea, vomiting. Denies any recent illness, diarrhea, or recent travel. Chest x-ray revealed pulmonary edema. BNP 43. Troponin 0.02. Lactic acid 1.6. She was admitted to the floor 01/21 on BiPAP. During the course of the day, her respiratory and mental status has declined. Transferred to the intensive care unit on 2016. She currently is somnolent but easily arousable. Answers questions and is alert and oriented but falls back to asleep easily. Concerning for acute and chronic respiratory failure due to hypercapnia. Will continue on a BiPAP trial and obtain an ABG now and then repeat in 1 hour. If ABG worsens or patient becomes unresponsive will elect to intubate. Patient is in agreement with this plan and endorses code status as FULL CODE. Past Med Surg Social Fam HX - Past Medical History Medical history: COPD, diabetes, hyperlipidemia, hypertension, thyroid disease, other Psychiatric history: anxiety, depression - Past Surgical History Surgical History: cholecystectomy, other (Tubal ligation, local cord biopsy, bilateral cataract surgery) - Social History Smoking Status: Current every day smoker Smokeless Tobacco Status: No Alcohol use: none Drug use: none - Family History Father Living Status: Hx Family Cardiac Disorders: Yes (Stroke,) Hx Family Respiratory Disorders: Yes (COPD) Hx Family Endocrine Disorder: Yes (Diabetes) Mother Name: Regina Alan Living Status: Age at : 83 Cause of : Cardiac arrest Hx Family Cardiac Disorders: Yes ([place]) Hx Family Respiratory Disorders: Yes (Lung CA,) Hx Family Cancer: Yes (Lung) Hx Family GI Disorders: Yes (Ulcers) Hx Family Genitourinary Disorders: No Hx Family Endocrine Disorder: Yes (Hypothyroidism, diabetes) Hx Family Musculoskeletal Disorders: Yes (Arthritis, back sx) Hx Family Neuromuscular Disorders: No Hx Family Neurologic Disorders: No Hx Family HEENT Disorders: No Hx Family Autoimmune Disorders: No Hx Family Reproductive Disorders: No Hx Family Psychosocial Disorders: Yes (Mental break down) Medications and Allergies Aclidinium [place] [Tudorza Pressair] 400 mcg IH BID 11/16/16 [History] Albuterol Sulfate [Ventolin Hfa] 2 puff IH QID 11/16/16 [History] Aspirin Enteric Coated [Aspirin EC] 325 mg PO DAILY 11/16/16 [History] Atenolol [Tenormin] 25 mg PO DAILY 11/16/16 [History] BuPROPion SR (12 HR) [Wellbutrin SR] 200 mg PO BID 11/16/16 [History] Budesonide/Formoterol 160/4.5 [Symbicort 160/4.5] 2 puff IH BIDR 11/16/16 [ History] Escitalopram [Lexapro] 20 mg PO DAILY 11/16/16 [History] Folic Acid 1 mg PO DAILY 11/16/16 [History] Gabapentin [Neurontin] 300 mg PO BID 11/16/16 [History] Ipratropium/Albuterol Neb [Duoneb] 3 ml IH QID 11/16/16 [History] Lansoprazole [Prevacid] 30 mg PO DAILY 11/16/16 [History] Levothyroxine Sodium [Synthroid] 200 mcg PO QAM 11/16/16 [History] Linagliptin [Tradjenta] 5 mg PO DAILY 11/16/16 [History] Losartan/Hydrochlorothiazide [Hyzaar 100-25 Tablet] 1 tab PO DAILY 11/16/16 [ History] Lovastatin [Mevacor] 20 mg PO QPM 11/16/16 [History] Metformin HCl [Metformin HCl ER] 1,500 mg PO DAILY 11/16/16 [History] Methotrexate [Otrexup] 12.5 mg PO QWEEK 11/16/16 [History] Potassium Chloride [Klor-Con 10] 10 meq PO TID 11/16/16 [History] amLODIPine [Norvasc] 5 mg PO DAILY 11/16/16 [History] Alendronate Sodium [Fosamax] 70 mg PO QWEEK 12/31/16 [History] Cholecalciferol (Vitamin D3) [Vitamin D3] 50,000 unit PO QWEEK 01/21/17 [History ] LORazepam [Ativan] 1 mg PO TID 01/21/17 [History] Oxygen 4 l .ROUTE AD 01/21/17 [History] Roflumilast [Daliresp] 500 mcg PO DAILY 01/21/17 [History] lamoTRIgine [Lamotrigine] 100 mg PO DAILY 01/21/17 [History] Allergies No Known Allergies Allergy (Verified 01/21/17 03:23) ROS unobtainable: due to mental status (assisted from medical records) All Systems: A 10-system review of systems was performed and is negative for pertinent findings except as documented above in the HPI. Physical Examination Vital Signs: Vital Signs, Last 4 Hours Pulse Resp Pulse Ox 01/21/17 15:38 39 90 01/21/17 15:25 106 85 01/21/17 15:15 33 72 General appearance: lethargic (easily arousable), agitated (restless, attempts to climb out of bed and remove BiPAP) Eyes: nonicteric Neck: supple Effort: mildly labored (on BiPAP) Inspection: other (attenuated chest rise) Auscultation: bilateral: diminished breath sounds Cardiovascular: regular rate and rhythm Gastrointestinal: normoactive bowel sounds, soft, non-tender, non-distended Integumentary: normal Extremities: pulses normal, edema (+2 pitting, symmetrical bilaterally) Musculoskeletal: no deformities, ROM normal non-focal exam, pupils equal and round, other (alert and oriented to person place and time) anxious Results - Laboratory Findings CBC and BMP: 01/21/17 02:25 01/21/17 02:25 PT/INR, D-dimer PT 12.2 Seconds (9.4-12.1) H 01/21/17 02:25 D-Dimer 771 ng/mLFEU (0-500) H 01/21/17 06:27 Abnormal lab findings: Abnormal lab results RBC 3.09 M/mcL (3.82-4.97) L 01/21/17 02:25 Hgb 9.0 g/dL (11.5-15.4) L 01/21/17 02:25 Hct 28.6 % (35.3-44.9) L 01/21/17 02:25 MCHC 31.5 g/dL (31.6-35.5) L 01/21/17 02:25 PT 12.2 Seconds (9.4-12.1) H 01/21/17 02:25 APTT 23.7 Seconds (26.0-36.0) L 01/21/17 02:25 D-Dimer 771 ng/mLFEU (0-500) H 01/21/17 06:27 Potassium 3.4 mEq/L (3.5-4.5) L 01/21/17 02:25 BUN 21 mg/dL (7-20) H 01/21/17 02:25 Glucose 254 mg/dL (70-99) H 01/21/17 02:25 POC Glucose 98 (58-89) H 01/21/17 11:58 Calculated Osmolality 304 (280-300) H 01/21/17 02:25 - Clinical Findings Intake & Output: Intake & Output 01/21/17 01/21/17 01/21/17 07:59 15:59 23:59 Output Total 600 / 600 Balance -600 / -600 Weight 82.1 kg Consult Discharge Plan - Plan Referrals: Freddy Toure MD [Primary Care Provider] -
--- NOTE | 2017-01-21 16:46 | Event Note ---
Date of Encounter: 01/21/17 Time of Encounter: 16:44 Attending addendum: The patient was seen and examined with the house staff. Complete resident note to follow. * Acute on chronic respiratory failure * Encephalopathy * COPD with acute exacerbation 71-year-old female with medical history significant for advanced COPD who presented to the emergency department for progressive dyspnea. She is admitted to the floor on BiPAP, but her respiratory status and mental status declined. She was transferred to the intensive care unit on 01/21/2017. Recommend trial of BiPAP as we treat her underlying COPD with steroids and bronchodilators. Recommend obtaining an arterial blood gas now and again in 1 hour. If her blood gas worsens or she becomes unresponsive, I recommend endotracheal intubation. She appears to have advanced, possibly end-stage, COPD and may be at risk for future tracheostomy depending on goals of care. Continue ICU level of care.
[2017-01-21 16:59] LABS: ABG Base Excess 12.7 mEq/L (-2.0 to 3.0); ABG HCO3 42.3 mEQ/L (21-27); ABG Oxygen Saturation 93 % (95-98); ABG PH 7.29 pH Units (7.32-7.45); ABG PO2 73 mmHg (85-104); Blood Gas FiO2 36 %
[2017-01-21 17:00] LABS: ABG PCO2 88 mmHg (35-45)
[2017-01-21] MEDS ORDERED: Ipratropium/Albuterol Neb 3 ML IH SCH (17:00)
[2017-01-21] MEDS: methylPREDNISolone 125 MG/2 ML VIAL IVP SCH ×2 (17:29→23:05)
[2017-01-21] MEDS: Azithromycin 500 MG in D5% in Water 250 ML IVPB SCH (17:29)
[2017-01-21] MEDS: Dexmedetomidine HCl 400 MCG/100 ML MLS IVC SCH (17:30)
[2017-01-21] MEDS ORDERED: Magnesium Sulfate 2 GM in D5% in Water 100 ML IVPB PRN (17:47)
[2017-01-21] MEDS ORDERED: Potassium Phosphate 44 MEQ in 0.9 % Sodium Chloride 250 ML IVPB PRN (17:47)
[2017-01-21] MEDS ORDERED: Calcium Gluconate 1,000 MG in D5% in Water 100 ML IVPB PRN (17:47)
[2017-01-21 17:56] LABS: ABG Base Excess 13.1 mEq/L (-2.0 to 3.0); ABG HCO3 43.2 mEQ/L (21-27); ABG Oxygen Saturation 92 % (95-98); ABG PH 7.28 pH Units (7.32-7.45); ABG PO2 72 mmHg (85-104)
[2017-01-21 17:57] LABS: ABG PCO2 92 mmHg (35-45); Blood Gas FiO2 35 %
[2017-01-21 20:07] LABS: ABG HCO3 42.8 mEQ/L (21-27); ABG Oxygen Saturation 94 % (95-98); ABG PH 7.32 pH Units (7.32-7.45); ABG PO2 76 mmHg (85-104); ABG TCO2 45.3 mEq/L (20-26)
[2017-01-21 20:08] LABS: Blood Gas FiO2 35 %
[2017-01-21 20:09] LABS: ABG PCO2 83 mmHg (35-45)
[2017-01-22] MEDS: Dexmedetomidine HCl 400 MCG/100 ML MLS IVC SCH ×2 (01:54→15:49)
[2017-01-22] MEDS: Ipratropium/Albuterol Neb 3 ML IH SCH ×6 (04:16→23:58)
[2017-01-22] MEDS: methylPREDNISolone 125 MG/2 ML VIAL IVP SCH ×3 (04:59→16:10)
[2017-01-22] MEDS: *HR* Heparin 5,000 UNIT/ML VIAL SQ SCH ×2 (05:00→16:10)
[2017-01-22 05:46] LABS: ABG Base Excess 12.5 mEq/L (-2.0 to 3.0); ABG HCO3 39.6 mEQ/L (21-27); ABG Oxygen Saturation 96 % (95-98); ABG PCO2 67 mmHg (35-45); ABG PH 7.38 pH Units (7.32-7.45); ABG PO2 83 mmHg (85-104); ABG TCO2 41.7 mEq/L (20-26); Blood Gas FiO2 35 %
[2017-01-22 06:09] LABS: Hematocrit 33.6 % (35.3-44.9); Immature Granulocytes % 0.9 % (0-4); Lymphocytes # 0.3 K/mcL (0.6-4.6); Lymphocytes % 4.7 %; Mean Corpuscular HGB Conc 31.5 g/dL (31.6-35.5); Mean Corpuscular Volume 92.1 fL (83.0-100.0); Mean Platelet Volume 9.5 fL (9.4-12.4); Monocytes % 0.3 %; Neutrophils # 5.4 K/mcL (1.6-8.9); Platelet Count 214 K/mcL (140-400); Red Blood Count 3.65 M/mcL (3.82-4.97); Red Cell Distribution Width 13.8 % (11.5-14.5); Segmented Neutrophils % 94.1 %
[2017-01-22 06:12] LABS: Hemoglobin 10.6 g/dL (11.5-15.4)
[2017-01-22 06:20] LABS: Calcium 9.4 mg/dL (8.6-10.8); Magnesium 1.6 mg/dL (1.6-2.6); Phosphorous 4.7 mg/dL (2.3-4.7); Potassium 4.4 mEq/L (3.5-4.5)
--- NOTE | 2017-01-22 06:32 | Pulmonology Progress Note ---
Date of Encounter: 01/22/17 Time of Encounter: 06:31 Assessment and Plan (1) Acute respiratory failure with hypoxia and hypercapnia Current Visit: Yes Status: Acute likely secondary to advanced COPD and CHF exacerbation ABG has improved significantly, 7.38/67/83/39.6/96/12.5 continue BiPAP and wean to home supplementation oxygen 4L NC Precedex for agitation as needed, currently off if clinically worsens, recommend endotracheal intubation ddimer elevated 771 but clinically appears to be COPD exacerbation, CTA chest discontinued (2) Encephalopathy Current Visit: Yes Status: Acute improving suspect likely secondary to CO2 narcosis as her CO2 is improving with mental status patient remains afebrile labs unremarkable (3) Acute exacerbation of chronic obstructive airways disease Current Visit: Yes Status: Suspected history of COPD, 3L home oxygen supplementation continue on BiPAP as tolerated and switch to NC scheduled bronchodilators IV steroids 60mg q6hr patient is afebrile Azithromycin day 2 if ABG worsens or becomes unresponsive, recommend endotracheal intubation (4) Diastolic heart failure Current Visit: No Status: Chronic questionable if patient's symptoms related to CHF BNP 43 11/17/2016 ECHO EF 65% with normal LV size and fucntion, mild diastolic dysfunction, mild TR, moderate pulmonary hypertension RVSP 47 mmHg CXE 01/21 read as pulmonary edema but upon comparison appears unchanged continue diuresis strict I/Os UOP 125 today, 450cc on 01/21 Qualifiers: Heart failure chronicity: unspecified heart failure chronicity Qualified Code(s): I50.30 - Unspecified diastolic (congestive) heart failure (5) KASIE (obstructive sleep apnea) Current Visit: Yes Status: Chronic BiPAP at night (6) Diabetes mellitus Current Visit: Yes Status: Chronic medium dose ISS continue to monitor Qualifiers: Diabetes mellitus type: type 2 Diabetes mellitus complication status: with hyperglycemia Diabetes mellitus exterminator helper insulin use: without exterminator helper use Qualified Code(s): E11.65 - Type 2 diabetes mellitus with hyperglycemia (7) Hypertension Current Visit: No Status: Chronic continue home medications Qualifiers: Hypertension type: essential hypertension Qualified Code(s): I10 - Essential (primary) hypertension (8) Hypothyroidism Current Visit: No Status: Chronic TSH 0.406 continue home medications Qualifiers: Hypothyroidism type: unspecified Qualified Code(s): E03.9 - Hypothyroidism , unspecified (9) Rheumatoid arthritis Current Visit: No Status: Chronic takes Methotrexate continue home medications immunosuppressed, start on Azithromycin for COPD Qualifiers: Rheumatoid arthritis location: wrist Rheumatoid factor presence: with rheumatoid factor Laterality: bilateral Qualified Code(s): M05.731 - Rheumatoid arthritis with rheumatoid factor of right wrist without organ or systems involvement; M05.732 - Rheumatoid arthritis with rheumatoid factor of left wrist without organ or systems involvement (10) DVT prophylaxis Current Visit: Yes Status: Acute Heparin SQ Subjective Principal diagnosis: Respiratory failure Interval history: No major events overnight. Patient seen and examined at bedside. She continues to tolerate the BiPAP well. ABGs have improved significantly. Maintains good at oxygen saturation. She is awake alert and oriented to person place and time. She remains confused about the events that occurred yesterday. She is tolerating sips of water without difficulty. Requesting food at this time. Denies any cough, shortness of breath, chest pain, nausea, vomiting. Denies any abdominal pain. Patient taken off BiPAP and tolerating 4 L nasal cannula well. She is able to have a conversation without any significant dyspnea. Objective PUL Vital signs: Last Vital Signs Temp 97.4 F L 01/22/17 05:10 Pulse 69 01/22/17 06:01 Resp 30 01/22/17 06:01 BP 131/67 01/22/17 06:01 Pulse Ox 99 01/22/17 06:01 General appearance: no acute distress, alert, other (no conversational dyspnea) Eyes: nonicteric, other (PERRL) ENT: oropharynx dry Neck: supple Effort: normal Auscultation: bilateral: diminished breath sounds Cardiovascular: regular rate and rhythm Gastrointestinal: normoactive bowel sounds, soft, non-tender, non-distended Integumentary: normal Extremities: pulses normal, edema (+2 pitting edema, symmetrical bilaterally) Musculoskeletal: no deformities, ROM normal normal mental status, non-focal exam, pupils equal and round Ventilator Settings Ventilator Settings: Ventilator Settings, Last 8 Hours Ventilator Respiratory Rate 8 Setting Results - Laboratory Findings CBC and BMP: 01/22/17 05:42 01/22/17 05:42 ABG ABG pH 7.38 pH Units (7.32-7.45) 01/22/17 05:37 ABG pCO2 67 mmHg (35-45) H 01/22/17 05:37 ABG pO2 83 mmHg (85-104) L 01/22/17 05:37 ABG O2 Saturation 96 % (95-98) 01/22/17 05:37 PT/INR, D-dimer PT 12.2 Seconds (9.4-12.1) H 01/21/17 02:25 D-Dimer 771 ng/mLFEU (0-500) H 01/21/17 06:27 Abnormal lab findings: Abnormal lab results RBC 3.65 M/mcL (3.82-4.97) L 01/22/17 05:42 Hgb 10.6 g/dL (11.5-15.4) L D 01/22/17 05:42 Hct 33.6 % (35.3-44.9) L 01/22/17 05:42 MCHC 31.5 g/dL (31.6-35.5) L 01/22/17 05:42 Lymphocytes # 0.3 K/mcL (0.6-4.6) L 01/22/17 05:42 PT 12.2 Seconds (9.4-12.1) H 01/21/17 02:25 APTT 23.7 Seconds (26.0-36.0) L 01/21/17 02:25 D-Dimer 771 ng/mLFEU (0-500) H 01/21/17 06:27 ABG pCO2 67 mmHg (35-45) H 01/22/17 05:37 ABG pO2 83 mmHg (85-104) L 01/22/17 05:37 ABG HCO3 39.6 mEQ/L (21-27) H 01/22/17 05:37 ABG Total CO2 41.7 mEq/L (20-26) H 01/22/17 05:37 ABG Base Excess 12.5 mEq/L (-2.0 to 3.0) H 01/22/17 05:37 Chloride 93 mEq/L (98-109) L 01/22/17 05:42 Carbon Dioxide 33 mEq/L (19-29) H 01/22/17 05:42 BUN 31 mg/dL (7-20) H D 01/22/17 05:42 Est GFR (Non-Af Amer) 49 (> 60) L 01/22/17 05:42 BUN/Creatinine Ratio 28 (6-26) H 01/22/17 05:42 Glucose 280 mg/dL (70-99) H 01/22/17 05:42 POC Glucose 193 (58-89) H 01/21/17 19:50 Calculated Osmolality 307 (280-300) H 01/22/17 05:42 - Clinical Findings Intake & Output: Intake & Output 01/21/17 01/21/17 01/22/17 15:59 23:59 07:59 Intake Total 250 / 250 100 / 100 Output Total 450 / 450 125 / 125 Balance -200 / -200 -25 / -25 Consult Discharge Plan - Plan Referrals: Freddy Toure MD [Primary Care Provider] -
[2017-01-22] MEDS: *HR* LORazepam 1 MG TABLET PO SCH (06:48)
[2017-01-22] MEDS: Insulin LISPRO 300 UNITS/3 ML VIAL SQ SCH ×4 (07:18→20:20)
[2017-01-22] MEDS: BuPROPion SR (12 HR) 100 MG TABLET PO SCH ×2 (07:47→20:11)
[2017-01-22] MEDS: Folic Acid 1 MG TABLET PO SCH (07:48)
[2017-01-22] MEDS: Gabapentin 300 MG CAPSULE PO SCH ×2 (07:48→20:11)
[2017-01-22] MEDS: Aspirin Enteric Coated 325 MG Tablet PO SCH (07:48)
[2017-01-22] MEDS: lamoTRIgine 100 MG TABLET PO SCH (07:49)
[2017-01-22] MEDS: amLODIPine 5 MG TABLET PO SCH (07:49)
[2017-01-22] MEDS: Furosemide 20 MG/2 ML VIAL IVP SCH ×2 (07:49→16:07)
[2017-01-22] MEDS: Losartan/HCTZ 50-12.5 TABLET PO SCH (07:49)
[2017-01-22] MEDS: Budesonide/Formoterol 160/4.5 MDI IH SCH ×2 (08:11→20:25)
[2017-01-22] MEDS: Azithromycin 500 MG in D5% in Water 250 ML IVPB SCH (16:07)
[2017-01-22] MEDS ORDERED: Insulin LISPRO 300 UNITS/3 ML VIAL SQ SCH (16:44)
[2017-01-22] MEDS ORDERED: Insulin DETEMIR 100 UNIT/ML X5UNITS SQ SCH (21:00)
[2017-01-23] MEDS: Ipratropium/Albuterol Neb 3 ML IH SCH ×5 (04:15→20:52)
[2017-01-23] MEDS: *HR* Heparin 5,000 UNIT/ML VIAL SQ SCH ×2 (05:04→16:40)
[2017-01-23 05:08] LABS: Eosinophils % 0.2 %; Hematocrit 28.4 % (35.3-44.9); Hemoglobin 9.3 g/dL (11.5-15.4); Immature Granulocytes % 0.7 % (0-4); Lymphocytes # 0.9 K/mcL (0.6-4.6); Lymphocytes % 10.8 %; Mean Corpuscular HGB Conc 32.7 g/dL (31.6-35.5); Mean Corpuscular Hemoglobin 29.7 pg (28.0-33.3); Mean Corpuscular Volume 90.7 fL (83.0-100.0); Mean Platelet Volume 9.8 fL (9.4-12.4); Monocytes # 0.4 K/mcL (0.0-1.3); Monocytes % 4.2 %; Platelet Count 195 K/mcL (140-400); Red Blood Count 3.13 M/mcL (3.82-4.97); Red Cell Distribution Width 14.2 % (11.5-14.5); Segmented Neutrophils % 84.1 %
[2017-01-23 05:15] LABS: Neutrophils # 7.3 K/mcL (1.6-8.9)
[2017-01-23 05:19] LABS: Calcium 8.5 mg/dL (8.6-10.8); Magnesium 1.6 mg/dL (1.6-2.6); Phosphorous 2.9 mg/dL (2.3-4.7); Potassium 3.4 mEq/L (3.5-4.5)
[2017-01-23] MEDS: Furosemide 20 MG/2 ML VIAL IVP SCH (07:15)
[2017-01-23] MEDS: Gabapentin 300 MG CAPSULE PO SCH ×2 (07:15→20:55)
[2017-01-23] MEDS: amLODIPine 5 MG TABLET PO SCH (07:16)
[2017-01-23] MEDS: Aspirin Enteric Coated 325 MG Tablet PO SCH (07:16)
[2017-01-23] MEDS: lamoTRIgine 100 MG TABLET PO SCH (07:16)
[2017-01-23] MEDS: Losartan/HCTZ 50-12.5 TABLET PO SCH (07:17)
[2017-01-23] MEDS: BuPROPion SR (12 HR) 100 MG TABLET PO SCH ×2 (07:17→20:55)
[2017-01-23] MEDS: Folic Acid 1 MG TABLET PO SCH (07:17)
[2017-01-23] MEDS: Budesonide/Formoterol 160/4.5 MDI IH SCH ×3 (08:01→20:52)
[2017-01-23] MEDS ORDERED: predniSONE 20 MG TABLET PO SCH (09:00)
[2017-01-23] MEDS ORDERED: *HR* Acetaminophen w/Cod 300-30 mg 1 TAB TABLET PO PRN (09:37)
--- NOTE | 2017-01-23 09:42 | Pulmonology Progress Note ---
Date of Encounter: 01/23/17 Time of Encounter: 09:40 Assessment and Plan (1) Acute exacerbation of chronic obstructive airways disease Current Visit: Yes Status: Suspected (2) Acute and chronic respiratory failure ([id number]) Current Visit: No Status: Acute Qualifiers: Respiratory failure complication: hypoxia and hypercapnia Qualified Code(s) : J96.21 - Acute and chronic respiratory failure with hypoxia; J96.22 - Acute and chronic respiratory failure with hypercapnia (3) Encephalopathy Current Visit: Yes Status: Acute Subjective Principal diagnosis: Respiratory failure Interval history: Patient tolerated BiPAP overnight. No fever/chills. Dyspnea all together improved. Mental status has cleared. Objective PUL Vital signs: Last Vital Signs Temp 97.5 F L 01/23/17 04:46 Pulse 66 01/23/17 09:00 Resp 14 01/23/17 08:00 BP 124/78 01/23/17 09:00 Pulse Ox 98 01/23/17 08:00 General: no acute distress Eyes: nonicteric ENT: oropharynx moist Neck: supple, no lymphadenopathy Lungs: Minimal air movement noted bilaterally Cardiovascular: regular rate and rhythm Gastrointestinal: normoactive bowel sounds, soft, non-tender, non-distended Integumentary: normal Extremities: no cyanosis, no edema Musculoskeletal: no deformities Neuro: normal mental status, non-focal exam Psych: mood appropriate, affect normal Results - Laboratory Findings CBC and BMP: 01/23/17 04:58 01/23/17 04:58 ABG ABG pH 7.38 pH Units (7.32-7.45) 01/22/17 05:37 ABG pCO2 67 mmHg (35-45) H 01/22/17 05:37 ABG pO2 83 mmHg (85-104) L 01/22/17 05:37 ABG O2 Saturation 96 % (95-98) 01/22/17 05:37 PT/INR, D-dimer PT 12.2 Seconds (9.4-12.1) H 01/21/17 02:25 D-Dimer 771 ng/mLFEU (0-500) H 01/21/17 06:27 Abnormal lab findings: Abnormal lab results RBC 3.13 M/mcL (3.82-4.97) L 01/23/17 04:58 Hgb 9.3 g/dL (11.5-15.4) L 01/23/17 04:58 Hct 28.4 % (35.3-44.9) L 01/23/17 04:58 PT 12.2 Seconds (9.4-12.1) H 01/21/17 02:25 APTT 23.7 Seconds (26.0-36.0) L 01/21/17 02:25 D-Dimer 771 ng/mLFEU (0-500) H 01/21/17 06:27 ABG pCO2 67 mmHg (35-45) H 01/22/17 05:37 ABG pO2 83 mmHg (85-104) L 01/22/17 05:37 ABG HCO3 39.6 mEQ/L (21-27) H 01/22/17 05:37 ABG Total CO2 41.7 mEq/L (20-26) H 01/22/17 05:37 ABG Base Excess 12.5 mEq/L (-2.0 to 3.0) H 01/22/17 05:37 Potassium 3.4 mEq/L (3.5-4.5) L D 01/23/17 04:58 Chloride 94 mEq/L (98-109) L 01/23/17 04:58 Carbon Dioxide 35 mEq/L (19-29) H 01/23/17 04:58 BUN 48 mg/dL (7-20) H D 01/23/17 04:58 Creatinine 1.19 mg/dL (0.57-1.11) H 01/23/17 04:58 Est GFR ( Amer) 55 (> 60) L 01/23/17 04:58 Est GFR (Non-Af Amer) 45 (> 60) L 01/23/17 04:58 BUN/Creatinine Ratio 40 (6-26) H 01/23/17 04:58 Glucose 186 mg/dL (70-99) H 01/23/17 04:58 POC Glucose 170 (58-89) H 01/23/17 07:23 Calculated Osmolality 303 (280-300) H 01/23/17 04:58 Calcium 8.5 mg/dL (8.6-10.8) L 01/23/17 04:58 - Clinical Findings Intake & Output: Intake & Output 05/27/17 05/28/17 05/28/17 23:59 07:59 15:59 Intake Total 610 / 610 360 / 360 104 / 104 Output Total 500 / 500 300 / 300 Balance 110 / 110 60 / 60 104 / 104 Weight 85 kg 85 kg Consult Discharge Plan - Plan Referrals: Freddy Toure MD [Primary Care Provider] -
[2017-01-23] MEDS ORDERED: Potassium Chloride Elixir 20 MEQ/15 ML UDC PO SCH ×2 (09:45→21:00)
[2017-01-23] MEDS ORDERED: Dextrose Gel 15 GM PO PRN ×2 (09:49)
[2017-01-23] MEDS ORDERED: *HR* Dextrose 50 % in Water (Syg) 50 ML SYRINGE IVP PRN (09:49)
[2017-01-23] MEDS ORDERED: Acetaminophen 325 MG TABLET PO PRN (09:49)
[2017-01-23] MEDS ORDERED: Naloxone 0.4 MG/ML INJ IVP PRN (09:49)
[2017-01-23] MEDS ORDERED: D5% in Water 1,000 ML IVC PRN (09:49)
[2017-01-23] MEDS: Azithromycin 500 MG in D5% in Water 250 ML IVPB SCH (10:04)
[2017-01-23] MEDS: Potassium Chloride Elixir 20 MEQ/15 ML UDC PO SCH ×2 (10:08→20:55)
[2017-01-23] MEDS: *HR* Acetaminophen w/Cod 300-30 mg 1 TAB TABLET PO PRN ×2 (11:01→16:40)
[2017-01-23] MEDS: Insulin LISPRO 300 UNITS/3 ML VIAL SQ SCH ×2 (11:43→16:40)
[2017-01-23] MEDS ORDERED: Insulin LISPRO 300 UNITS/3 ML VIAL SQ SCH (21:00)
[2017-01-24] MEDS: Ipratropium/Albuterol Neb 3 ML IH SCH ×4 (00:33→11:19)
[2017-01-24] MEDS: *HR* Heparin 5,000 UNIT/ML VIAL SQ SCH (05:35)
[2017-01-24 07:03] VITALS: BP 113/75
[2017-01-24] MEDS: BuPROPion SR (12 HR) 100 MG TABLET PO SCH (07:55)
[2017-01-24] MEDS: Gabapentin 300 MG CAPSULE PO SCH (07:56)
[2017-01-24] MEDS: *HR* Acetaminophen w/Cod 300-30 mg 1 TAB TABLET PO PRN (07:56)
[2017-01-24] MEDS: Insulin LISPRO 300 UNITS/3 ML VIAL SQ SCH ×2 (07:58→11:57)
[2017-01-24] MEDS: Budesonide/Formoterol 160/4.5 MDI IH SCH (08:05)
[2017-01-24 08:39] LABS: Basophils % 0.1 %; Eosinophils # 0.1 K/mcL (0.0-0.6); Eosinophils % 0.6 %; Hematocrit 31.7 % (35.3-44.9); Hemoglobin 10.2 g/dL (11.5-15.4); Immature Granulocytes % 0.6 % (0-4); Immature Platelets 2.3 % (1.1-6.1); Lymphocytes # 1.3 K/mcL (0.6-4.6); Lymphocytes % 12.4 %; Mean Corpuscular HGB Conc 32.2 g/dL (31.6-35.5); Mean Corpuscular Hemoglobin 29.5 pg (28.0-33.3); Mean Corpuscular Volume 91.6 fL (83.0-100.0); Mean Platelet Volume 9.6 fL (9.4-12.4); Monocytes # 0.6 K/mcL (0.0-1.3); Monocytes % 5.6 %; Neutrophils # 8.4 K/mcL (1.6-8.9); Platelet Count 246 K/mcL (140-400); Red Blood Count 3.46 M/mcL (3.82-4.97); Red Cell Distribution Width 14.4 % (11.5-14.5); Segmented Neutrophils % 80.7 %
[2017-01-24 08:51] LABS: BUN/Creatinine Ratio 32 (6-26); Calcium 9.1 mg/dL (8.6-10.8); Carbon Dioxide 33 mEq/L (19-29); Chloride 95 mEq/L (98-109); Glucose 190 mg/dL (70-99); Osmolality,Calculated 302 (280-300); Potassium 3.5 mEq/L (3.5-4.5); Sodium 140 mEq/L (136-145); eGFR For African Americans > 60 (> 60); eGFR For Non-African Americans 56 (> 60)
[2017-01-24 08:55] LABS: Blood Urea Nitrogen 32 mg/dL (7-20)
[2017-01-24] MEDS ORDERED: predniSONE 20 MG TABLET PO SCH (09:00)
[2017-01-24] MEDS ORDERED: amLODIPine 5 MG TABLET PO SCH (09:00)
[2017-01-24] MEDS ORDERED: Folic Acid 1 MG TABLET PO SCH (09:00)
[2017-01-24] MEDS ORDERED: Aspirin Enteric Coated 325 MG Tablet PO SCH (09:00)
[2017-01-24] MEDS ORDERED: Losartan/HCTZ 50-12.5 TABLET PO SCH (09:00)
[2017-01-24] MEDS ORDERED: lamoTRIgine 100 MG TABLET PO SCH (09:00)
--- NOTE | 2017-01-24 09:49 | Discharge Summary ---
Date of Encounter: 01/24/17 Time of Encounter: 08:35 - Discharge Diagnosis (1) Acute exacerbation of chronic obstructive airways disease Priority: Primary Status: Suspected (2) Acute and chronic respiratory failure ([id number]) Priority: Primary Status: Acute Qualifiers: Respiratory failure complication: hypoxia and hypercapnia Qualified Code(s) : J96.21 - Acute and chronic respiratory failure with hypoxia; J96.22 - Acute and chronic respiratory failure with hypercapnia (3) Diabetes mellitus Priority: Secondary Status: Chronic Qualifiers: Diabetes mellitus type: type 2 Diabetes mellitus complication status: with hyperglycemia Diabetes mellitus care home insulin use: without care home use Qualified Code(s): E11.65 - Type 2 diabetes mellitus with hyperglycemia (4) DVT prophylaxis Priority: Secondary Status: Acute (5) Hypertension Priority: Secondary Status: Chronic Qualifiers: Hypertension type: essential hypertension Qualified Code(s): I10 - Essential (primary) hypertension - Discharge Medications Prescriptions: predniSONE [PredniSONE] See Taper PO DAILY #14 tablet Home Medications: Aclidinium [place] [Tudorza Pressair] 400 mcg IH BID 11/16/16 [History] Albuterol Sulfate [Ventolin Hfa] 2 puff IH QID 11/16/16 [History] Aspirin Enteric Coated [Aspirin EC] 325 mg PO DAILY 11/16/16 [History] Atenolol [Tenormin] 25 mg PO DAILY 11/16/16 [History] BuPROPion SR (12 HR) [Wellbutrin SR] 200 mg PO BID 11/16/16 [History] Budesonide/Formoterol 160/4.5 [Symbicort 160/4.5] 2 puff IH BIDR 11/16/16 [ History] Escitalopram [Lexapro] 20 mg PO DAILY 11/16/16 [History] Folic Acid 1 mg PO DAILY 11/16/16 [History] Gabapentin [Neurontin] 300 mg PO BID 11/16/16 [History] Ipratropium/Albuterol Neb [Duoneb] 3 ml IH QID 11/16/16 [History] Lansoprazole [Prevacid] 30 mg PO DAILY 11/16/16 [History] Levothyroxine Sodium [Synthroid] 200 mcg PO QAM 11/16/16 [History] Linagliptin [Tradjenta] 5 mg PO DAILY 11/16/16 [History] Losartan/Hydrochlorothiazide [Hyzaar 100-25 Tablet] 1 tab PO DAILY 11/16/16 [ History] Lovastatin [Mevacor] 20 mg PO QPM 11/16/16 [History] Metformin HCl [Metformin HCl ER] 1,500 mg PO DAILY 11/16/16 [History] Methotrexate [Otrexup] 12.5 mg PO QWEEK 11/16/16 [History] Potassium Chloride [Klor-Con 10] 10 meq PO TID 11/16/16 [History] amLODIPine [Norvasc] 5 mg PO DAILY 11/16/16 [History] Alendronate Sodium [Fosamax] 70 mg PO QWEEK 12/31/16 [History] Cholecalciferol (Vitamin D3) [Vitamin D3] 50,000 unit PO QWEEK 01/21/17 [History ] LORazepam [Ativan] 1 mg PO TID 01/21/17 [History] Oxygen 4 l .ROUTE AD 01/21/17 [History] Roflumilast [Daliresp] 500 mcg PO DAILY 01/21/17 [History] lamoTRIgine [Lamotrigine] 100 mg PO DAILY 01/21/17 [History] Azithromycin [Zithromax] 250 mg PO DAILY #7 tablet 01/24/17 [Rx] predniSONE [PredniSONE] See Taper PO DAILY #14 tablet 01/24/17 [Rx] Allergies/Adverse Reactions: Allergies No Known Allergies Allergy (Verified 01/21/17 03:23) - Notes to Outpatient Provider 1. Prednisone tapered down: 40 mg 3 days, then 20 mg 3 days, then 10 mg 3 days, then stop. 2. Azithromycin 250 mg daily by mouth for 7 more days Date of admission: 01/21/17 18:29 Primary care physician: Freddy Toure MD Discharging clinician: Lexie Piedra Anticipated date of discharge: 01/24/17 - Patient Status Disposition: Home Health Service Condition: Fair Functional capacity at discharge: uses cane/walker Overall status at discharge: patient is back to baseline - Discharge Instructions Follow Up With: Freddy Toure MD [Primary Care Provider] - - Diet and Activity Activity: as per physical therapy Diet: diabetic diet Interval History: Ms. Jhaveri is a 71 year old female with history of COPD, rheumatoid arthritis, CHF presents with shortness of breath. Patient states that the shortness of breath developed yesterday while at rest all of a sudden and has gradually been getting worse. Patient also complains of an occasional tightness in her chest that does not radiate and was not associated with inspiration. Patient reports no change in her chronic cough which is sometimes productive with white phlegm. She also reports lower extremity swelling that has been increasing. Patient states that normally her right leg is more swollen than her left leg but recently her left leg seems to be more swollen than her right leg. Patient received Lasix in the emergency department she states that she feels better. She denies fever, chills, abdominal pain, nausea, vomiting, diarrhea, dysuria. Hospital course: Ms. Jhaveri is a 71 year old female admitted as COPD exacerbation. Patient was placed on antibiotic, IV steroids, bronchodilator. She was admitted to ICU and placed on BiPAP supportive treatment. After treatment, her condition has improved. Steroid taper down and changed to by mouth. Patient's shortness of breath has improved, right now is about her baseline. Patient has home oxygen and home BiPAP already, she also has home health arranged already.we will discharge patient home with by mouth azithromycin and prednisone. 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 I saw and examined patient. She is awake alert oriented 3. She said she feels fine, shortness of breath is about her baseline. Vital signs stable. No wheezing on auscultation. Lab reviewed. Patient will discharge home, with home health, home oxygen, and home BiPAP (patient has all of them at home already). - Time Spent with Patient Total time spent providing and/or coordinating discharge services: 40 minutes Greater than 30 minutes - Constitutional Vitals: Temp Pulse Resp BP Pulse Ox 97.8 F 73 18 113/75 98 01/24/17 06:59 01/24/17 06:59 01/24/17 08:02 01/24/17 08:02 01/24/17 08:02 General appearance: Present: A&O X 3, pleasant, no acute distress - Head Head exam: Present: atraumatic, normocephalic - Eye Eye exam: Present: PERRL, conjuntiva pink, sclera anicteric Pupils: Present: PERRL - Neck Neck exam general surgery: Present: supple, trachea midline. Absent: lymphadenopathy - Respiratory Respiratory exam: Present: decreased breath sounds (Bilaterally), CTAB. Absent : accessory muscle use, rales, rhonchi, wheezes - Cardiovascular Cardiovascular exam: Present: RRR, +S1, +S2. Absent: diastolic murmur, gallop, rubs, systolic murmur - GI/Abdominal GI/Abdominal exam: Present: normal bowel sounds, soft, no peritoneal signs. Absent: distended, tenderness - Extremities Exam Extremities exam: Present: warm, radial pulses palpable and symetrical. Absent : calf tenderness, cyanotic, pedal edema - Neurological Exam Neurological exam: Present: CN II-XII intact, oriented X3, no focal deficits. Absent: pronater drift, facial droop, speech deficit - Skin Skin exam: Present: dry, intact
--- NOTE | 2017-01-24 10:15 | Physician Discharge Referral ---
Home Health/Hosp Referral Info Transfer to: Home Health Provider in Charge Post Discharge: PCP - Diagnosis (1) Acute exacerbation of chronic obstructive airways disease Status: Suspected (2) Acute and chronic respiratory failure ([id number]) Status: Acute (3) Diabetes mellitus Status: Chronic (4) DVT prophylaxis Status: Acute (5) Hypertension Status: Chronic - Respiratory Orders Oxygen / L per min (2-4) Smoking Cessation: Smoking cessation has been advised. For more information, call the [place] Tobacco Quit Line at 8-663-OXZN-NOW. - Diet/Nutrition Diet/Nutrition Orders: No Concentrated Sweets - Activity Activity Orders: Walker - Services Needed Following services are medically necessary services: Nursing, Home Health Aide, Physical Therapy, Occupational Therapy - Transfer Medications Prescriptions: Azithromycin [Zithromax] 250 mg PO DAILY #7 tablet predniSONE [PredniSONE] See Taper PO DAILY #14 tablet Home Medications: Aclidinium [place] [Tudorza Pressair] 400 mcg IH BID 11/16/16 [History] Albuterol Sulfate [Ventolin Hfa] 2 puff IH QID 11/16/16 [History] Aspirin Enteric Coated [Aspirin EC] 325 mg PO DAILY 11/16/16 [History] Atenolol [Tenormin] 25 mg PO DAILY 11/16/16 [History] BuPROPion SR (12 HR) [Wellbutrin SR] 200 mg PO BID 11/16/16 [History] Budesonide/Formoterol 160/4.5 [Symbicort 160/4.5] 2 puff IH BIDR 11/16/16 [ History] Escitalopram [Lexapro] 20 mg PO DAILY 11/16/16 [History] Folic Acid 1 mg PO DAILY 11/16/16 [History] Gabapentin [Neurontin] 300 mg PO BID 11/16/16 [History] Ipratropium/Albuterol Neb [Duoneb] 3 ml IH QID 11/16/16 [History] Lansoprazole [Prevacid] 30 mg PO DAILY 11/16/16 [History] Levothyroxine Sodium [Synthroid] 200 mcg PO QAM 11/16/16 [History] Linagliptin [Tradjenta] 5 mg PO DAILY 11/16/16 [History] Losartan/Hydrochlorothiazide [Hyzaar 100-25 Tablet] 1 tab PO DAILY 11/16/16 [ History] Lovastatin [Mevacor] 20 mg PO QPM 11/16/16 [History] Metformin HCl [Metformin HCl ER] 1,500 mg PO DAILY 11/16/16 [History] Methotrexate [Otrexup] 12.5 mg PO QWEEK 11/16/16 [History] Potassium Chloride [Klor-Con 10] 10 meq PO TID 11/16/16 [History] amLODIPine [Norvasc] 5 mg PO DAILY 11/16/16 [History] Alendronate Sodium [Fosamax] 70 mg PO QWEEK 12/31/16 [History] Cholecalciferol (Vitamin D3) [Vitamin D3] 50,000 unit PO QWEEK 01/21/17 [History ] LORazepam [Ativan] 1 mg PO TID 01/21/17 [History] Oxygen 4 l .ROUTE AD 01/21/17 [History] Roflumilast [Daliresp] 500 mcg PO DAILY 01/21/17 [History] lamoTRIgine [Lamotrigine] 100 mg PO DAILY 01/21/17 [History] Azithromycin [Zithromax] 250 mg PO DAILY #7 tablet 01/24/17 [Rx] predniSONE [PredniSONE] See Taper PO DAILY #14 tablet 01/24/17 [Rx] Allergies/Adverse Reactions: Allergies No Known Allergies Allergy (Verified 01/21/17 03:23) Certification: Further, I certify that my clinical findings support that this patient is homebound (i.e. absences from home require considerable and taxing effort and are for medical reasons or worship services or infrequently or short duration when for other reasons) because: Homebound Reason: Patient requires assistance of a person or device to safely leave home Attestation: My signature below is to certify that this patient is under my care and that I, or nurse practitioner, or a physician's insurance administrative assistant working with me, has a face-to -face encounter with this patient.
[2017-01-24] MEDS: Azithromycin 500 MG in D5% in Water 250 ML IVPB SCH (10:18)
== END 2017-01-24 12:45 | disposition home health service (06) | DRG 140 ==
LOC: 3BNU 00:45 → EMEROO 00:45 → SUATTDRO 03:31 → 3BNU 03:50 → ICNU 17:18 → SUATTDRO 18:29 → 3ANU 01-23 12:31
PROVIDERS: ADMIT Registered Nurse; ATTEND Internal Medicine

== ENCOUNTER 2017-12-31 02:44 | Inpatient (IN) ==
[2017-12-31] MEDS ORDERED: methylPREDNISolone 125 MG/2 ML VIAL IVP ONE (02:52)
[2017-12-31] MEDS ORDERED: Ipratropium/Albuterol Neb 3 ML IH ONE (02:52)
[2017-12-31] MEDS ORDERED: Ipratropium/Albuterol Neb 3 ML ONE (02:53)
[2017-12-31 03:20] LABS: Basophils % 0.2 %; Eosinophils # 0.2 K/mcL (0.0-0.6); Eosinophils % 2.9 %; Hematocrit 33.8 % (35.3-44.9); Hemoglobin 10.6 g/dL (11.5-15.4); Immature Granulocytes % 0.2 % (0-4); Lymphocytes # 0.7 K/mcL (0.6-4.6); Lymphocytes % 12.4 %; Mean Corpuscular HGB Conc 31.4 g/dL (31.6-35.5); Mean Corpuscular Hemoglobin 29.5 pg (28.0-33.3); Mean Corpuscular Volume 94.2 fL (83.0-100.0); Mean Platelet Volume 10.4 fL (9.4-12.4); Monocytes # 0.3 K/mcL (0.0-1.3); Monocytes % 5.7 %; Neutrophils # 4.1 K/mcL (1.6-8.9); Platelet Count 141 K/mcL (140-400); Red Blood Count 3.59 M/mcL (3.82-4.97); Red Cell Distribution Width 14.1 % (11.5-14.5); Segmented Neutrophils % 78.6 %
--- NOTE | 2017-12-31 03:20 | Emergency Department Note ---
Disposition Clinical Impression: Acute exacerbation of chronic obstructive airways disease Acute and chronic respiratory failure Qualifiers: Respiratory failure complication: hypoxia and hypercapnia Qualified Code(s): J96.21 - Acute and chronic respiratory failure with hypoxia Disposition: Admitted As Inpatient Condition: Fair General Adult HPI - General Chief complaint: ED Shortness of Breath/Dyspnea Stated complaint: CALEB Time Seen by Provider: 12/31/17 02:52 Source: patient, EMS Limitations: no limitations Nursing Notes Reviewed: Yes Vital Signs Reviewed: Yes - History of Present Illness Pain Scale: 8 - Related Data Home Medications Medication Instructions Recorded Confirmed Albuterol Sulfate [Ventolin Hfa] 2 puff IH QID PRN 11/16/16 08/31/17 Aspirin Enteric Coated [Aspirin EC] 325 mg PO DAILY 11/16/16 08/31/17 Atenolol [Tenormin] 25 mg PO DAILY 11/16/16 08/31/17 Folic Acid 1 mg PO DAILY 11/16/16 08/31/17 Gabapentin [Neurontin] 300 mg PO BID 11/16/16 08/31/17 Ipratropium/Albuterol Neb [Duoneb] 3 ml IH QID 11/16/16 08/31/17 Lansoprazole [Prevacid] 30 mg PO DAILY 11/16/16 08/31/17 Linagliptin [Tradjenta] 5 mg PO DAILY 11/16/16 08/31/17 Losartan/Hydrochlorothiazide 1 tab PO DAILY 11/16/16 08/31/17 [Hyzaar 100-25 Tablet] Lovastatin [Mevacor] 20 mg PO QPM 11/16/16 08/31/17 Metformin HCl [Metformin HCl ER] 1,500 mg PO DAILY 11/16/16 08/31/17 Methotrexate [Otrexup] 12.5 mg PO TU 11/16/16 08/31/17 Potassium Chloride [Klor-Con 10] 10 meq PO TID 11/16/16 08/31/17 amLODIPine [Norvasc] 10 mg PO DAILY 11/16/16 08/31/17 Alendronate Sodium [Fosamax] 70 mg PO TU 12/31/16 08/31/17 Cholecalciferol (Vitamin D3) 50,000 unit PO TU 01/21/17 08/31/17 [Vitamin D3] Oxygen 4 l NS AD 01/21/17 08/31/17 Roflumilast [Daliresp] 500 mcg PO DAILY 01/21/17 08/31/17 lamoTRIgine [Lamotrigine] 100 mg PO DAILY 01/21/17 08/31/17 Escitalopram [Lexapro] 10 mg PO DAILY 08/31/17 08/31/17 Guaifenesin [Guaifenesin ER] 600 mg PO DAILY 08/31/17 08/31/17 Levothyroxine [Synthroid] 150 mcg PO QAM 08/31/17 08/31/17 Previous Rx's Medication Instructions Recorded Levofloxacin [Levaquin] 500 mg PO DAILY #5 tablet 09/03/17 Nicotine Patch [Nicoderm] 14 mg TD DAILY #30 patch.td24 09/03/17 predniSONE [PredniSONE] 40 mg PO NOW #10 tablet 09/03/17 Allergies Allergy/AdvReac Type Severity Reaction Status Date / Time No Known Allergies Allergy Verified 01/21/17 03:23 Past Medical History - Past Medical History Medical history: Reports: COPD, diabetes, hyperlipidemia, hypertension, thyroid disease, other Surgical history: Reports: cholecystectomy, other Psychiatric history: Reports: anxiety, depression - Social History Smoking Status: Current every day smoker Smokeless Tobacco Status: No Alcohol use: Reports: none Drug use: Reports: none Physical Exam - General Limitations: no limitations General appearance: alert, in no apparent distress Course Vital Signs Temperature 98.2 F 12/31/17 02:45 Pulse Rate 80 12/31/17 02:45 Respiratory Rate 22 12/31/17 02:45 Blood Pressure 143/119 12/31/17 02:45 O2 Sat by Pulse Oximetry 98 12/31/17 02:45 Temperature 98.2 F 12/31/17 02:45 Pulse Rate 75 12/31/17 03:43 Respiratory Rate 39 12/31/17 05:41 Blood Pressure 106/74 12/31/17 05:13 O2 Sat by Pulse Oximetry 98 12/31/17 05:41 Oxygen Delivery Oxygen Delivery Bipap Medical Decision Making - Lab Data Result diagrams: 12/31/17 03:07 12/31/17 03:07 Lab Results 12/31/17 12/31/17 12/31/17 Range/Units 03:07 03:07 03:07 WBC 5.3 (4.3-11.1) K/mcL RBC 3.59 L (3.82-4.97) M/mcL Hgb 10.6 L (11.5-15.4) g/dL Hct 33.8 L (35.3-44.9) % MCV 94.2 (83.0-100.0) fL MCH 29.5 (28.0-33.3) pg MCHC 31.4 L (31.6-35.5) g/dL RDW 14.1 (11.5-14.5) % Plt Count 141 (140-400) K/mcL MPV 10.4 (9.4-12.4) fL Immature Gran % 0.2 (0-4) % Seg Neutrophils % 78.6 % Lymphocytes % 12.4 % Monocytes % 5.7 % Eosinophils % 2.9 % Basophils % 0.2 % Neutrophils # 4.1 (1.6-8.9) K/mcL Lymphocytes # 0.7 (0.6-4.6) K/mcL Monocytes # 0.3 (0.0-1.3) K/mcL Eosinophils # 0.2 (0.0-0.6) K/mcL Basophils # 0.0 (0.0-0.2) K/mcL Sodium 142 (136-145) mEq/L Potassium 4.2 (3.5-5.1) mEq/L Chloride 100 (98-107) mEq/L Carbon Dioxide 36 H (23-29) mEq/L BUN 25 H (8-23) mg/dL Creatinine 0.96 (0.60-1.20) mg/dL Est GFR ( Amer) > 60 (> 60) Est GFR (Non-Af Amer) 57 L (> 60) BUN/Creatinine Ratio 26 (6-26) Glucose 136 H (70-105) mg/dL Calculated Osmolality 300 (280-300) Lactic Acid 0.8 (0.5-2.2) mmol/L Calcium 9.2 (8.6-10.3) mg/dL Troponin I < 0.03 (< 0.04) ng/mL B-Natriuretic Peptide (Less than 100) pg/mL 12/31/17 Range/Units 03:07 WBC (4.3-11.1) K/mcL RBC (3.82-4.97) M/mcL Hgb (11.5-15.4) g/dL Hct (35.3-44.9) % MCV (83.0-100.0) fL MCH (28.0-33.3) pg MCHC (31.6-35.5) g/dL RDW (11.5-14.5) % Plt Count (140-400) K/mcL MPV (9.4-12.4) fL Immature Gran % (0-4) % Seg Neutrophils % % Lymphocytes % % Monocytes % % Eosinophils % % Basophils % % Neutrophils # (1.6-8.9) K/mcL Lymphocytes # (0.6-4.6) K/mcL Monocytes # (0.0-1.3) K/mcL Eosinophils # (0.0-0.6) K/mcL Basophils # (0.0-0.2) K/mcL Sodium (136-145) mEq/L Potassium (3.5-5.1) mEq/L Chloride (98-107) mEq/L Carbon Dioxide (23-29) mEq/L BUN (8-23) mg/dL Creatinine (0.60-1.20) mg/dL Est GFR ( Amer) (> 60) Est GFR (Non-Af Amer) (> 60) BUN/Creatinine Ratio (6-26) Glucose (70-105) mg/dL Calculated Osmolality (280-300) Lactic Acid (0.5-2.2) mmol/L Calcium (8.6-10.3) mg/dL Troponin I (< 0.04) ng/mL B-Natriuretic Peptide 119 H (Less than 100) pg/mL Critical Care Time Critical Care Time: Yes Total Critical Care Time: 35 Attestation: Critical care performed: Time is exclusive of separately billable procedures. Time includes: direct patient care, patient reassessment, coordination of patient care, interpretation of data (laboratory data, radiology data, and respiratory data), review of patient's medical records, medical consultation and documentation of patient care. Procedures included in critical care time: Procedures excluded from critical care time: Attestation Statement - Attestation Attestation: I examined this patient and my medical decision-making was reviewed with the Resident Physician. I agree with the documented findings, disposition and treatment plan as described except to the extent set forth below. Patient to the ED with a chief complaint of shortness of breath. Dry cough. Worsening tonight. Patient states her taylor out she is unable to use her BiPAP which usually helps. She has COPD and emphysema and she also has CHF. On examination she is in some mild respiratory distress with accessory muscle use. Diffuse wheezing. Plan. Patient placed on BiPAP. steroids. Cardiac workup and likely admission. Patient tolerating BiPAP at this time. Workup shows no pneumonia. Steroids given by EMS. Patient admitted to medicine. Chest X-Ray 12/31/17 02:52 IMPRESSION: Emphysema with diffuse airway inflammation, presumably smoking-related although a component of acute bronchitis could present in the appropriate clinical context. No consolidative pneumonia. D/ / Johnathon Song / Johnathon Song Interpreting Provider: Johnathon Song
[2017-12-31 03:45] LABS: BUN/Creatinine Ratio 26 (6-26); Blood Urea Nitrogen 25 mg/dL (8-23); Calcium 9.2 mg/dL (8.6-10.3); Carbon Dioxide 36 mEq/L (23-29); Chloride 100 mEq/L (98-107); Glucose 136 mg/dL (70-105); Osmolality,Calculated 300 (280-300); Potassium 4.2 mEq/L (3.5-5.1); Sodium 142 mEq/L (136-145); Troponin I < 0.03 ng/mL (< 0.04); eGFR For African Americans > 60 (> 60); eGFR For Non-African Americans 57 (> 60)
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
[2017-12-31 06:21] LABS: VBG HCO3 38 mEq/L (21-27); VBG PCO2 78 mmHg (41-51); VBG PO2 151 mmHg (25-50)
[2017-12-31] MEDS ORDERED: Naloxone 0.4 MG/ML INJ IVP PRN (08:14)
[2017-12-31] MEDS ORDERED: Acetaminophen 325 MG TABLET PO PRN (08:14)
[2017-12-31] MEDS ORDERED: *HR* Dextrose 50 % in Water (Syg) 50 ML SYRINGE IVP PRN (08:29)
[2017-12-31] MEDS ORDERED: D5% in Water 1,000 ML IVC PRN (08:29)
[2017-12-31] MEDS ORDERED: Dextrose Gel 15 GM/37.5 ML TUBE PO PRN ×2 (08:29)
[2017-12-31] MEDS ORDERED: NON-FORMULARY MEDICATION 1 EACH EACH (Oxygen [Oxygen] 4 L) NS SCH (08:30)
--- NOTE | 2017-12-31 08:34 | Internal Med History&Physical ---
Date of Encounter: 12/31/17 Time of Encounter: 08:23 Internal Medicine - H&P: HPI Chief complaint: Shortness of breath Admitted From: Emergency Dept Plans for Post Hospital Care: Home History of present illness: Ms. Jhaveri is a 72 year old female who is a background history of diabetes mellitus, hypertension, dyslipidemia, COPD, rheumatoid arthritis on methotrexate , active smoker. Patient started worsening shortness of breath for past 4 days. In last 24 hours her shortness of breath has progressively got worsened. Since last night 10 PM patient was not able to lay down flat and was persistently coughing. In view of this persistent cough she was not able to sleep. Patient also claims that there is a change in the phlegm color. Patient denies chest pain, nausea, vomiting, dizziness and diarrhea. Workup in the emergency room: Patient was evaluated in the emergency room. Noted that patient was persistently tachypneic. ABG shows PCO2 of 70. Patient was started on BiPAP. Reason for admission acute exacerbation of COPD likely secondary to infective origin, for intravenous antibiotics/steroids. Family history: Noncontributory Past Med Surg Social Fam HX - Past Medical History Medical history: COPD, diabetes, hyperlipidemia, hypertension, thyroid disease, other Psychiatric history: anxiety, depression - Past Surgical History Surgical History: cholecystectomy, other - Social History Smoking Status: Current every day smoker Smokeless Tobacco Status: No Alcohol use: none Drug use: none - Family History Father Living Status: Hx Family Cardiac Disorders: Yes (Stroke,) Hx Family Respiratory Disorders: Yes (COPD) Hx Family Endocrine Disorder: Yes (Diabetes) Mother Living Status: Hx Family Cardiac Disorders: Yes ([place]) Hx Family Respiratory Disorders: Yes (Lung CA,) Hx Family Cancer: Yes (Lung) Hx Family GI Disorders: Yes (Ulcers) Hx Family Endocrine Disorder: Yes (Hypothyroidism, diabetes) Hx Family Neuromuscular Disorders: No Hx Family Neurologic Disorders: No Hx Family HEENT Disorders: No Hx Family Autoimmune Disorders: No Internal Medicine - H&P: Meds Albuterol Sulfate [Ventolin Hfa] 2 puff IH QID PRN 11/16/16 [History] Aspirin Enteric Coated [Aspirin EC] 325 mg PO DAILY 11/16/16 [History] Atenolol [Tenormin] 25 mg PO DAILY 11/16/16 [History] Folic Acid 1 mg PO DAILY 11/16/16 [History] Gabapentin [Neurontin] 300 mg PO BID 11/16/16 [History] Ipratropium/Albuterol Neb [Duoneb] 3 ml IH QID 11/16/16 [History] Lansoprazole [Prevacid] 30 mg PO DAILY 11/16/16 [History] Linagliptin [Tradjenta] 5 mg PO DAILY 11/16/16 [History] Losartan/Hydrochlorothiazide [Hyzaar 100-25 Tablet] 1 tab PO DAILY 11/16/16 [ History] Lovastatin [Mevacor] 20 mg PO QPM 11/16/16 [History] Metformin HCl [Metformin HCl ER] 1,500 mg PO DAILY 11/16/16 [History] Methotrexate [Otrexup] 12.5 mg PO TU 11/16/16 [History] Potassium Chloride [Klor-Con 10] 10 meq PO TID 11/16/16 [History] amLODIPine [Norvasc] 10 mg PO DAILY 11/16/16 [History] Alendronate Sodium [Fosamax] 70 mg PO TU 12/31/16 [History] Cholecalciferol (Vitamin D3) [Vitamin D3] 50,000 unit PO TU 01/21/17 [History] Oxygen 4 l NS AD 01/21/17 [History] Roflumilast [Daliresp] 500 mcg PO DAILY 01/21/17 [History] lamoTRIgine [Lamotrigine] 100 mg PO DAILY 01/21/17 [History] Escitalopram [Lexapro] 10 mg PO DAILY 08/31/17 [History] Guaifenesin [Guaifenesin ER] 600 mg PO DAILY 08/31/17 [History] Levothyroxine [Synthroid] 150 mcg PO QAM 08/31/17 [History] Levofloxacin [Levaquin] 500 mg PO DAILY #5 tablet 09/03/17 [Rx] Nicotine Patch [Nicoderm] 14 mg TD DAILY #30 patch.td24 09/03/17 [Rx] predniSONE [PredniSONE] 40 mg PO NOW #10 tablet 09/03/17 [Rx] 3 Allergy/AdvReac Type Severity Reaction Status Date / Time No Known Allergies Allergy Verified 01/21/17 03:23 All Systems PM: A 10-system review of systems was performed and is negative for pertinent findings except as documented above in the HPI. - Constitutional Constitutional: no chills, no fever(s), no night sweats - EENT Eyes: no change in vision, no discharge, no pain, no photophobia Ears: no ear discharge, no ear pain, no tinnitus Nose, mouth and throat: no dysphagia, no nasal discharge, no neck pain, no sore throat - Cardiovascular Cardiovascular ROS IM: dyspnea, dyspnea on exertion, no chest pain, no diaphoresis, no lightheadedness, no palpitations, no syncope - Respiratory Respiratory: no cough, no dyspnea, no wheezing, no excessive phlegm production - Gastrointestinal Gastrointestinal: no abdominal pain, no diarrhea, no hematemesis, no hematochezia, no melena, no nausea, no vomiting - Genitourinary Genitourinary: no change in urinary stream, no dysuria, no flank pain, no hematuria - Musculoskeletal Musculoskeletal ROS IM: no numbness, no tingling - Integumentary Integumentary IM: no rash, no unusual bruising - Neurological Neurological ROS: no confusion, no convulsions, no focal weakness, no numbness, no tingling, no tremor(s) - Hematologic/Lymphatic Hematologic/Lymphatic: no easy bruising - Constitutional Vitals: Temp Pulse Resp BP Pulse Ox 97.8 F 80 17 136/70 94 12/31/17 06:43 12/31/17 06:43 12/31/17 06:43 12/31/17 06:43 12/31/17 08:14 General appearance: Present: A&O X 3, pleasant, no acute distress, answers questions appropriately - Head Head exam: Present: atraumatic, normocephalic - Eye Eye exam: Present: PERRL, conjuntiva pink, sclera anicteric Pupils: Present: PERRL - Neck Neck exam general surgery: Present: supple, trachea midline. Absent: lymphadenopathy - Respiratory Respiratory exam: Present: CTAB, prolonged expiratory phase, wheezes, tachypnea. Absent: accessory muscle use, rales, rhonchi - Cardiovascular Cardiovascular exam: Present: RRR, +S1, +S2. Absent: diastolic murmur, gallop, rubs, systolic murmur - GI/Abdominal GI/Abdominal exam: Present: normal bowel sounds, soft, no peritoneal signs. Absent: distended, tenderness - Extremities Exam Extremities exam: Present: warm, radial pulses palpable and symmetrical. Absent : calf tenderness, cyanotic, pedal edema - Neurological Exam Neurological exam: Present: CN II-XII intact, oriented X3, no focal deficits. Absent: pronater drift, facial droop, speech deficit - Skin Skin exam: Present: dry, intact Internal Med - H&P Results - Labs CBC & Chem 7: 12/31/17 03:07 12/31/17 03:07 - ABG Interpretation ABG results: 12/31/17 06:04 VBG pH 7.30 L VBG pCO2 78 H* VBG pO2 151 H VBG HCO3 38 H - Assessment and plan (1) Acute exacerbation of chronic obstructive airways disease Current Visit: No Status: Resolved Assessment and plan: 70/mL Known to have a acute exacerbation of COPD and multiple times the past. Admitted with the persistent cough/change change in color of expectoration. Noted that on the VBG PCO2 is 70. Line: Admit as inpatient. Continue BiPAP. Cardiac diet. Diabetic diet. VBG at 11 AM. Cycle troponin. Antibiotics: Ceftriaxone and azithromycin. Steroids: Solu-Medrol. Bronchodilators: DuoNeb. I examined this patient in a patient's room. Plan of care explained to the patient. Patient is active smoker. Spent 10 minutes with the patient regarding smoking cessation. (2) Diabetes mellitus Current Visit: No Status: Chronic Assessment and plan: Patient is known to have her type 2 diabetes mellitus. At this point patient will get home medications resumed. We will follow the recommendations from subcutaneous insulin order set. Qualifiers: Diabetes mellitus type: type 2 Diabetes mellitus manager equity insulin use: without custodial use Diabetes mellitus complication status: with hyperglycemia Qualified Code(s): E11.65 - Type 2 diabetes mellitus with hyperglycemia (3) Hypertension Current Visit: No Status: Chronic Assessment and plan: Patient blood pressure is very well-controlled. We will resume the home medication. Close monitoring of the blood pressure Qualifiers: Hypertension type: essential hypertension Qualified Code(s): I10 - Essential (primary) hypertension (4) History of hypothyroidism Current Visit: No Status: Chronic Assessment and plan: Patient is known to have a history of hypothyroidism. We will resume her home medication. (5) Rheumatoid arthritis Current Visit: No Status: Chronic Assessment and plan: Patient is known to have seropositive rheumatoid arthritis. Patient is presently on methotrexate. we will continue the same medication. Patient is a possibility that patient might have a rheumatoid lung. Qualifiers: Rheumatoid arthritis location: wrist Rheumatoid factor presence: with rheumatoid factor Laterality: bilateral Qualified Code(s): M05.731 - Rheumatoid arthritis with rheumatoid factor of right wrist without organ or systems involvement; M05.732 - Rheumatoid arthritis with rheumatoid factor of left wrist without organ or systems involvement; M05.732 - Rheumatoid arthritis with rheumatoid factor of left wrist without organ or systems involvement; M05.732 - Rheumatoid arthritis with rheumatoid factor of left wrist without organ or systems involvement; M05.732 - Rheumatoid arthritis with rheumatoid factor of left wrist without organ or systems involvement (6) DVT prophylaxis Current Visit: No Status: Acute Assessment and plan: Heparin Medical decision making: This patient has a moderate to severe risk of worsening in spite of being on appropriate medication due to the underlying chronic comorbid conditions. - Time Spent With Patient Total time spent is greater than 50% in coordination of care (as documented) at patient's floor/unit and/or counseling patient:
[2017-12-31] MEDS ORDERED: (Linagliptin [Tradjenta] 5 MG) PO SCH (09:00)
[2017-12-31] MEDS ORDERED: (Roflumilast [Daliresp] 500 MCG) PO SCH (09:00)
[2017-12-31] MEDS: Azithromycin 500 MG in D5% in Water 250 ML IVPB SCH (10:53)
[2017-12-31] MEDS: cefTRIAXone 1,000 MG in 0.9 % Sodium Chloride Mini Bag 100 ML IVPB SCH (10:55)
[2017-12-31] MEDS: Aspirin Enteric Coated 325 MG Tablet PO SCH (10:56)
[2017-12-31] MEDS: Gabapentin 300 MG CAPSULE PO SCH ×2 (10:56→19:53)
[2017-12-31] MEDS: Folic Acid 1 MG TABLET PO SCH (10:56)
[2017-12-31] MEDS: lamoTRIgine 100 MG TABLET PO SCH (10:56)
[2017-12-31] MEDS: Losartan/HCTZ 50-12.5 TABLET PO SCH (10:56)
[2017-12-31] MEDS: amLODIPine 5 MG TABLET PO SCH (10:57)
[2017-12-31] MEDS: Nicotine 14 MG PATCH.TD24 TD SCH (10:57)
[2017-12-31] MEDS: Cholecalciferol (D-3) 1,000 UNIT TABLET PO SCH (11:02)
[2017-12-31] MEDS: (Linagliptin [Tradjenta] 5 MG) PO SCH (11:03)
[2017-12-31] MEDS: (Roflumilast [Daliresp] 500 MCG) PO SCH (11:03)
[2017-12-31] MEDS: Ipratropium/Albuterol Neb 3 ML IH SCH ×3 (11:53→20:03)
[2017-12-31] MEDS: Insulin LISPRO 300 UNITS/3 ML VIAL SQ SCH ×2 (12:59→16:57)
[2017-12-31] MEDS: MethylPREDNISolone 40 MG/ML VIAL IVP SCH (18:16)
[2017-12-31] MEDS: *HR* Heparin 5,000 UNIT/ML VIAL SQ SCH (18:16)
[2018-01-01] MEDS ORDERED: *HR* LORazepam 2 MG/ML VIAL IVP ONE ×2 (00:30→03:00)
[2018-01-01] MEDS: Ipratropium/Albuterol Neb 3 ML IH SCH ×8 (00:37→23:30)
[2018-01-01] MEDS: MethylPREDNISolone 40 MG/ML VIAL IVP SCH ×4 (00:40→23:01)
[2018-01-01] MEDS: *HR* Heparin 5,000 UNIT/ML VIAL SQ SCH ×4 (00:40→23:01)
[2018-01-01 07:33] LABS: Hematocrit 37.2 % (35.3-44.9); Hemoglobin 11.5 g/dL (11.5-15.4); Mean Corpuscular HGB Conc 30.9 g/dL (31.6-35.5); Mean Corpuscular Hemoglobin 29.1 pg (28.0-33.3); Mean Corpuscular Volume 94.2 fL (83.0-100.0); Mean Platelet Volume 10.5 fL (9.4-12.4); Platelet Count 174 K/mcL (140-400); Red Blood Count 3.95 M/mcL (3.82-4.97); Red Cell Distribution Width 13.8 % (11.5-14.5)
[2018-01-01 07:38] LABS: INR 1.1; Prothrombin Time 11.3 Seconds (9.4-12.1)
[2018-01-01 07:41] LABS: Activated Partial Thrombo Time 28.6 Seconds (26.0-36.0)
[2018-01-01] MEDS ORDERED: *HR* Midazolam HCl 5 MG/5 ML VIAL IVP ONE ×2 (07:48→12:22)
[2018-01-01] MEDS ORDERED: *HR* Etomidate 20 MG/10 ML AMPUL IVP ONE ×2 (07:48→12:22)
[2018-01-01] MEDS ORDERED: *HR* Midazolam HCl 2 MG/2 ML VIAL IV ONE (07:48)
[2018-01-01 08:00] LABS: BUN/Creatinine Ratio 36 (6-26); Blood Urea Nitrogen 25 mg/dL (8-23); Carbon Dioxide 41 mEq/L (23-29); Chloride 96 mEq/L (98-107); Potassium 4.3 mEq/L (3.5-5.1); Sodium 140 mEq/L (136-145); eGFR For African Americans > 60 (> 60)
[2018-01-01 08:01] LABS: Alanine Aminotransferase 4 Units/L (7-52); Albumin/Globulin Ratio 1.5 (1.1-2.2); Alkaline Phosphatase 66 Units/L (34-104); Aspartate Amino Transferase 10 Units/L (13-39); Bilirubin,Total 0.3 mg/dL (0.3-1.0); Calcium 9.3 mg/dL (8.6-10.3); Chol/HDL Ratio 3.1 (0-4.9); Cholesterol 154 mg/dL (< 200); Globulin 2.7 g/dL (2.4-3.5); Glucose 184 mg/dL (70-105); HDL Cholesterol 49 mg/dL (40-59); LDL Cholesterol,Calculated 78 mg/dL (0-99); Magnesium 2.2 mg/dL (1.6-2.6); Osmolality,Calculated 299 (280-300); Total Protein 6.7 g/dL (6.4-8.9); Triglycerides 134 mg/dL (< 150); eGFR For Non-African Americans > 60 (> 60)
[2018-01-01 08:14] LABS: Monocytes # 0.2 K/mcL (0.0-1.3); Neutrophils # 7.9 K/mcL (1.6-8.9); Platelet Estimate Normal (Normal)
[2018-01-01] MEDS: Azithromycin 500 MG in D5% in Water 250 ML IVPB SCH (09:08)
[2018-01-01] MEDS: cefTRIAXone 1,000 MG in 0.9 % Sodium Chloride Mini Bag 100 ML IVPB SCH (09:09)
[2018-01-01] MEDS: Losartan/HCTZ 50-12.5 TABLET PO SCH (09:10)
[2018-01-01] MEDS: Gabapentin 300 MG CAPSULE PO SCH ×2 (09:10→20:08)
[2018-01-01] MEDS: Folic Acid 1 MG TABLET PO SCH (09:10)
[2018-01-01] MEDS: Aspirin Enteric Coated 325 MG Tablet PO SCH (09:10)
[2018-01-01] MEDS: Cholecalciferol (D-3) 1,000 UNIT TABLET PO SCH (09:11)
[2018-01-01] MEDS: lamoTRIgine 100 MG TABLET PO SCH (09:11)
[2018-01-01] MEDS: amLODIPine 5 MG TABLET PO SCH (09:11)
[2018-01-01] MEDS: Nicotine 14 MG PATCH.TD24 TD SCH (09:12)
[2018-01-01] MEDS: (Roflumilast [Daliresp] 500 MCG) PO SCH (09:12)
[2018-01-01] MEDS: (Linagliptin [Tradjenta] 5 MG) PO SCH (09:12)
[2018-01-01] MEDS: Insulin LISPRO 300 UNITS/3 ML VIAL SQ SCH ×3 (09:12→17:01)
[2018-01-01 09:47] LABS: ABG Base Excess 11 mEq/L (-2 to 3); ABG HCO3 45 mEq/L (21-27); ABG Oxygen Saturation 86 % (95-98); ABG PCO2 134 mmHg (35-45); ABG PH 7.14 pH Units (7.32-7.45); ABG PO2 73 mmHg (85-104); ABG TCO2 49 mEq/L (20-26)
--- NOTE | 2018-01-01 10:12 | Internal Med Progress Note ---
Date of Encounter: 01/01/18 Time of Encounter: 09:45 - Assessment and plan (1) Acute on chronic respiratory failure with hypoxia and hypercapnia Current Visit: Yes Status: Acute Assessment and plan: She has declined overnight and is now unresponsive. ABG shows worsening respiratory acidosis. She will be transferred to ICU for further management. (2) Acute exacerbation of chronic obstructive airways disease Current Visit: No Status: Resolved Assessment and plan: 70/mL Known to have a acute exacerbation of COPD and multiple times the past. Admitted with the persistent cough/change change in color of expectoration Worsening respiratory status. To be transferred to ICU at this time. (3) Diabetes mellitus Current Visit: No Status: Chronic Assessment and plan: Accuchecks and coverage. Qualifiers: Diabetes mellitus type: type 2 Diabetes mellitus nursing home insulin use: without nursing home use Diabetes mellitus complication status: with hyperglycemia Qualified Code(s): E11.65 - Type 2 diabetes mellitus with hyperglycemia (4) Hypertension Current Visit: No Status: Chronic Assessment and plan: Continuing monitoring. Qualifiers: Hypertension type: essential hypertension Qualified Code(s): I10 - Essential (primary) hypertension (5) History of hypothyroidism Current Visit: Yes Status: Chronic Assessment and plan: Patient is known to have a history of hypothyroidism. Synthroid. (6) Rheumatoid arthritis Current Visit: No Status: Chronic Assessment and plan: Patient is known to have seropositive rheumatoid arthritis. Patient is presently on methotrexate. Qualifiers: Rheumatoid arthritis location: wrist Rheumatoid factor presence: with rheumatoid factor Laterality: bilateral Qualified Code(s): M05.731 - Rheumatoid arthritis with rheumatoid factor of right wrist without organ or systems involvement; M05.732 - Rheumatoid arthritis with rheumatoid factor of left wrist without organ or systems involvement; M05.732 - Rheumatoid arthritis with rheumatoid factor of left wrist without organ or systems involvement; M05.732 - Rheumatoid arthritis with rheumatoid factor of left wrist without organ or systems involvement; M05.732 - Rheumatoid arthritis with rheumatoid factor of left wrist without organ or systems involvement (7) DVT prophylaxis Current Visit: No Status: Acute Assessment and plan: Heparin - Time Spent With Patient Total time spent is greater than 50% in coordination of care (as documented) at patient's floor/unit and/or counseling patient: - Subjective Interval history: Ms Jhaveri is currently admitted for acute exac COPD. She remains high risk due to potential for worsening respiratory status. Ms Jhaveri is more somnolent this AM. She is breathing 30-40 times a minute on bipap. Repeat blood gas at this time is worse. - Constitutional Vitals: Temp Pulse Resp BP Pulse Ox 98.1 F 98 16 153/72 93 01/01/18 07:55 01/01/18 07:55 01/01/18 07:55 01/01/18 07:55 01/01/18 07:55 Exam: Unresponsive. Tachypneic. - Head Head exam: Present: normocephalic - Eye Eye exam: Present: conjuntiva pink - ENT ENT exam: Present: mucous membranes dry - Respiratory Respiratory exam: Present: wheezes Additional comments: Diffuse rhonchi and wheeze - Cardiovascular Cardiovascular exam: Present: distant heart sounds - GI/Abdominal GI/Abdominal exam: Present: soft - Extremities Exam Extremities exam: Present: warm - Neurological Exam Additional comments: Unresponsive to voice. Moves to pain. - Skin Skin exam: Present: warm Internal Medicine: Result - Labs CBC & Chem 7: 01/01/18 05:44 01/01/18 05:44 Labs: Short CBC 01/01/18 Range/Units 05:44 WBC 8.1 D (4.3-11.1) K/mcL Hgb 11.5 (11.5-15.4) g/dL Hct 37.2 (35.3-44.9) % Plt Count 174 (140-400) K/mcL Neutrophils # 7.9 (1.6-8.9) K/mcL BMP 01/01/18 05:44 Sodium 140 Potassium 4.3 Chloride 96 L Carbon Dioxide 41 H* BUN 25 H Creatinine 0.69 Glucose 184 H Calcium 9.3 Cardiac Enzymes 12/31/17 12/31/17 Range/Units 13:53 20:43 Troponin I < 0.03 < 0.03 (< 0.04) ng/mL Liver Function 01/01/18 Range/Units 05:44 Total Bilirubin 0.3 (0.3-1.0) mg/dL AST 10 L (13-39) Units/L ALT 4 L (7-52) Units/L Alkaline Phosphatase 66 (34-104) Units/L Albumin 4.0 (3.5-5.7) g/dL - ABG Interpretation ABG results: ABG ABG pH 7.14 pH Units (7.32-7.45) L* 01/01/18 09:42 ABG pCO2 134 mmHg (35-45) H* 01/01/18 09:42 ABG pO2 73 mmHg (85-104) L 01/01/18 09:42 ABG O2 Saturation 86 % (95-98) L 01/01/18 09:42 PT/INR, D-dimer PT 11.3 Seconds (9.4-12.1) 01/01/18 05:44 Consult Discharge Plan - Plan Referrals: Jose G Toure MD [Primary Care Provider] -
[2018-01-01] MEDS ORDERED: Furosemide 20 MG/2 ML VIAL IVP ONE (10:20)
--- NOTE | 2018-01-01 10:22 | Pulmonology Consult Note ---
<Bora Michaud - Last Filed: 01/01/18 11:14> Date of Encounter: 01/01/18 Time of Encounter: 10:25 Assessment and Plan (1) Acute on chronic respiratory failure with hypoxia and hypercapnia Current Visit: Yes Status: Acute Acute on chronic respiratory failure with hypoxia and hypercapnia Patient presented with shortness of breath, became more somnolent and obtunded overnight CXR shows emphysema with diffuse airway inflammation Currently on BiPAP, however not mentating appropriately ABG 7.14/126/61/43/79 on BiPAP She has been minimally responsive to BiPAP, however remains somnolent We will continue to attempt BiPAP with plan to intubate if respiratory failure persists We will give Lasix to decrease pulmonary edema (2) Diastolic heart failure Current Visit: Yes Status: Chronic CHF with preserved EF, pulmonary edema present TTE 11/12 LVEF 65% Mild LV diastolic dysfunction Moderate Pulmonary htn, RVSP 47 The patient has JVD on exam, minimal LE edema We will get a repeat TTE today Lasix for fluid management Qualifiers: Heart failure chronicity: acute on chronic Qualified Code(s): I50.33 - Acute on chronic diastolic (congestive) heart failure (3) Encephalopathy Current Visit: Yes Status: Acute (4) COPD (chronic obstructive pulmonary disease) Current Visit: Yes Status: Acute Severe COPD with significant emphysematous changes CXR demonstrates substantial airtrapping and airway disease Chest CT 12/14 shows Severe centrilobular and paraseptal emphysema ABG demonstrates hypoxia and hypercapnia We will give IV Steroids Duonebs and albuterol as needed Will likely require intubation Qualifiers: COPD type: emphysema Emphysema type: unspecified Qualified Code(s): J43.9 - Emphysema, unspecified (5) History of hypothyroidism Current Visit: Yes Status: Chronic Continue home dose synthroid (6) Hx of rheumatoid arthritis Current Visit: Yes Status: Chronic History of seropositive RA Continue methorexate (7) Diabetes mellitus Current Visit: No Status: Chronic Hold oral DM meds Start SSI Qualifiers: Diabetes mellitus type: type 2 Diabetes mellitus chcf insulin use: without chcf use Diabetes mellitus complication status: with hyperglycemia Qualified Code(s): E11.65 - Type 2 diabetes mellitus with hyperglycemia (8) Hypertension Current Visit: No Status: Chronic continue home meds, may require holding if sedation is started Qualifiers: Hypertension type: essential hypertension Qualified Code(s): I10 - Essential (primary) hypertension (9) DVT prophylaxis Current Visit: No Status: Acute SQ Heparin History of Present Illness Consult date: 01/01/18 Requesting physician: Chuck Gresham Reason for consult: COPD, other (Hypoxic Hypercapnic respiratory failure) Chief complaint: Shortness of breath History of present illness: Ms. Jhaveri is a 72-year-old woman with a history of diabetes, hypertension, hyperlipidemia, rheumatoid arthritis, severe COPD presented to the ED with worsening shortness of breath for approximately 4 days. The patient is minimally responsive at time of examination secondary to respiratory failure, and her history is primarily taken from previous records as well as family. The patient apparently has severe COPD and uses approximately 3-4 L of oxygen at home. In the past several days, the patient has become increasingly short of breath. In addition of this, she is apparently had a dry cough over the past several days. According to the patient's daughter the patient does have BiPAP at home as well as O2, however she has been unable to use the BiPAP due to technical difficulties with the machine. Apparently Tuesday night she was unable to lie flat or redness without significant shortness of breath, and eventually EMS was called due to severe respiratory distress. When they found her she had an oxygen saturation of 82% on 4 L nasal cannula, which apparently improved with increase to 6 L nasal cannula. In the ED, the patient was found to be dyspneic, tachypneic, and hypoxic. She was placed on BiPAP at the time of arrival, and she was treated for acute exacerbation of COPD with IV steroids. The mentating appropriately at that time , and further workup did demonstrate that she had significant airway disease. Her chest x-ray showed diffuse airway disease with increased opacifications in the bases consistent with chronic lung disease. Her BNP was mildly elevated, and troponins were negative. Initial VBG did demonstrate mild respiratory acidosis with venous PCO2 78 and venous pH 7.3 with incomplete compensation with bicarbonate 38. She was admitted to the hospitalist service on BiPAP for management of acute exacerbation of COPD with steroids and IV antibiotics, however overnight she apparently worsened. This morning she was found to be poorly responsive, with very minimal alertness. The patient did remain on BiPAP throughout the night, however she apparently did receive Ativan multiple times throughout the night as well. ABG at that time did demonstrate a pH of 7.14, PCO2 134, PO2 73 with O2 saturation 86. At this time she was transferred to the ICU for more critical management. Notably, I did speak with the patient's daughter who is listed as her emergency contact to confirm that the patient would want advanced measures. She said that she has undergone endotracheal intubation in the past for respiratory distress and she believes that it would be her wish to have this done again if necessary. Past Med Surg Social Fam HX - Past Medical History Medical history: COPD, diabetes, hyperlipidemia, hypertension, thyroid disease, other Psychiatric history: anxiety, depression - Past Surgical History Surgical History: cholecystectomy, other - Social History Smoking Status: Current every day smoker Smokeless Tobacco Status: No Alcohol use: none Drug use: none - Family History Father Living Status: Hx Family Cardiac Disorders: Yes (Stroke,) Hx Family Respiratory Disorders: Yes (COPD) Hx Family Endocrine Disorder: Yes (Diabetes) Mother Living Status: Hx Family Cardiac Disorders: Yes ([place]) Hx Family Respiratory Disorders: Yes (Lung CA,) Hx Family Cancer: Yes (Lung) Hx Family GI Disorders: Yes (Ulcers) Hx Family Endocrine Disorder: Yes (Hypothyroidism, diabetes) Hx Family Neuromuscular Disorders: No Hx Family Neurologic Disorders: No Hx Family HEENT Disorders: No Hx Family Autoimmune Disorders: No Medications and Allergies Albuterol Sulfate [Ventolin Hfa] 2 puff IH QID PRN 11/16/16 [History] Aspirin Enteric Coated [Aspirin EC] 325 mg PO DAILY 11/16/16 [History] Atenolol [Tenormin] 25 mg PO DAILY 11/16/16 [History] Folic Acid 1 mg PO DAILY 11/16/16 [History] Gabapentin [Neurontin] 300 mg PO BID 11/16/16 [History] Ipratropium/Albuterol Neb [Duoneb] 3 ml IH QID 11/16/16 [History] Lansoprazole [Prevacid] 30 mg PO DAILY 11/16/16 [History] Linagliptin [Tradjenta] 5 mg PO DAILY 11/16/16 [History] Losartan/Hydrochlorothiazide [Hyzaar 100-25 Tablet] 1 tab PO DAILY 11/16/16 [ History] Lovastatin [Mevacor] 20 mg PO QPM 11/16/16 [History] Metformin HCl [Metformin HCl ER] 1,500 mg PO DAILY 11/16/16 [History] Methotrexate [Otrexup] 12.5 mg PO TU 11/16/16 [History] Potassium Chloride [Klor-Con 10] 10 meq PO TID 11/16/16 [History] amLODIPine [Norvasc] 10 mg PO DAILY 11/16/16 [History] Alendronate Sodium [Fosamax] 70 mg PO TU 12/31/16 [History] Cholecalciferol (Vitamin D3) [Vitamin D3] 50,000 unit PO TU 01/21/17 [History] Oxygen 4 l NS AD 01/21/17 [History] Roflumilast [Daliresp] 500 mcg PO DAILY 01/21/17 [History] lamoTRIgine [Lamotrigine] 100 mg PO DAILY 01/21/17 [History] Escitalopram [Lexapro] 10 mg PO DAILY 08/31/17 [History] Guaifenesin [Guaifenesin ER] 600 mg PO DAILY 08/31/17 [History] Levothyroxine [Synthroid] 150 mcg PO QAM 08/31/17 [History] Levofloxacin [Levaquin] 500 mg PO DAILY #5 tablet 09/03/17 [Rx] Nicotine Patch [Nicoderm] 14 mg TD DAILY #30 patch.td24 09/03/17 [Rx] predniSONE [PredniSONE] 40 mg PO NOW #10 tablet 09/03/17 [Rx] 3 Allergy/AdvReac Type Severity Reaction Status Date / Time No Known Allergies Allergy Verified 01/21/17 03:23 ROS unobtainable: due to endotracheal tube All Systems: The remainder of the systems were reviewed and are negative Physical Examination Vital Signs: Vital Signs, Last 4 Hours Temp Pulse Resp BP Pulse Ox 01/01/18 07:55 98.1 F 98 16 153/72 93 Gen: Vitals noted. No acute distress. Alert only to painful stimuli HEENT: PERRL, oropharynx clear, Normocephalic, atraumatic Neck: Supple. No adenopathy. JVD present Cardiac: RRR, no murmur, +S1/S2. Bounding pulses Pulmonary: Poor aeration overall, wheezes present b/l with extremely diminished lung sounds in the b/l bases Abdomen: soft, nontender, no guarding Back: Nontender throughout. MSK: ROM intact, no joint swelling noted Extremities: no BLE edema, nontender calf, no cyanosis or clubbing Neuro: unable to assess due to mental status Results - Laboratory Findings CBC and BMP: 01/01/18 05:44 01/01/18 05:44 ABG ABG pH 7.14 pH Units (7.32-7.45) L* 01/01/18 09:42 ABG pCO2 134 mmHg (35-45) H* 01/01/18 09:42 ABG pO2 73 mmHg (85-104) L 01/01/18 09:42 ABG O2 Saturation 86 % (95-98) L 01/01/18 09:42 PT/INR, D-dimer PT 11.3 Seconds (9.4-12.1) 01/01/18 05:44 Abnormal lab findings: Abnormal lab results MCHC 30.9 g/dL (31.6-35.5) L 01/01/18 05:44 ABG pH 7.14 pH Units (7.32-7.45) L* 01/01/18 09:42 ABG pCO2 134 mmHg (35-45) H* 01/01/18 09:42 ABG pO2 73 mmHg (85-104) L 01/01/18 09:42 ABG HCO3 45 mEq/L (21-27) H 01/01/18 09:42 ABG Total CO2 49 mEq/L (20-26) H 01/01/18 09:42 ABG O2 Saturation 86 % (95-98) L 01/01/18 09:42 ABG Base Excess 11 mEq/L (-2 to 3) H 01/01/18 09:42 VBG pH 7.30 pH Units (7.32-7.42) L 12/31/17 06:04 VBG pCO2 78 mmHg (41-51) H* 12/31/17 06:04 VBG pO2 151 mmHg (25-50) H 12/31/17 06:04 VBG HCO3 38 mEq/L (21-27) H 12/31/17 06:04 Chloride 96 mEq/L (98-107) L 01/01/18 05:44 Carbon Dioxide 41 mEq/L (23-29) H* 01/01/18 05:44 BUN 25 mg/dL (8-23) H 01/01/18 05:44 BUN/Creatinine Ratio 36 (6-26) H 01/01/18 05:44 Glucose 184 mg/dL (70-105) H 01/01/18 05:44 POC Glucose 174 mg/dL (70-99) H 01/01/18 10:10 AST 10 Units/L (13-39) L 01/01/18 05:44 ALT 4 Units/L (7-52) L 01/01/18 05:44 B-Natriuretic Peptide 500 pg/mL (Less than 100) H 01/01/18 05:44 - Microbiology Findings Microbiology Findings: Microbiology, Last 48 Hours 12/31/17 08:56 Blood Culture - Preliminary Peripheral Venipuncture No growth. - Clinical Findings Intake & Output: Intake & Output 12/31/17 01/01/18 01/01/18 23:59 07:59 15:59 Intake Total 200 / 200 Balance 200 / 200 Weight 77.3 kg Consult Discharge Plan - Plan Referrals: Jose G Toure MD [Primary Care Provider] - <Dave Villegas - Last Filed: 01/01/18 15:27> Date of Encounter: 01/01/18 All Systems: The remainder of the systems were reviewed and are negative Physical Examination Vital Signs: Vital Signs, Last 4 Hours Pulse Resp BP Pulse Ox 01/01/18 14:00 60 16 105/57 99 01/01/18 13:00 66 16 103/53 97 01/01/18 12:00 97 34 141/74 90 Ventilator Settings Ventilator Settings: Ventilator Settings, Last 8 Hours Ventilator Mode VC+ Ventilator Tidal Volume 400 Setting Ventilator Tidal Volume 450 Setting Ventilator Respiratory Rate 16 Setting Actual Respiratory Rate 16 Positive End Expiratory 5 Pressure Peak Inspiratory Airway 22 Pressure Results - Laboratory Findings CBC and BMP: 01/01/18 05:44 01/01/18 05:44 ABG ABG pH 7.26 pH Units (7.32-7.45) L 01/01/18 14:00 ABG pCO2 94 mmHg (35-45) H* D 01/01/18 14:00 ABG pO2 53 mmHg (85-104) L 01/01/18 14:00 ABG O2 Saturation 79 % (95-98) L 01/01/18 14:00 PT/INR, D-dimer PT 11.3 Seconds (9.4-12.1) 01/01/18 05:44 Abnormal lab findings: Abnormal lab results MCHC 30.9 g/dL (31.6-35.5) L 01/01/18 05:44 ABG pH 7.26 pH Units (7.32-7.45) L 01/01/18 14:00 ABG pCO2 94 mmHg (35-45) H* D 01/01/18 14:00 ABG pO2 53 mmHg (85-104) L 01/01/18 14:00 ABG HCO3 42 mEq/L (21-27) H 01/01/18 14:00 ABG Total CO2 45 mEq/L (20-26) H 01/01/18 14:00 ABG O2 Saturation 79 % (95-98) L 01/01/18 14:00 ABG Base Excess 12 mEq/L (-2 to 3) H 01/01/18 14:00 VBG pH 7.30 pH Units (7.32-7.42) L 12/31/17 06:04 VBG pCO2 78 mmHg (41-51) H* 12/31/17 06:04 VBG pO2 151 mmHg (25-50) H 12/31/17 06:04 VBG HCO3 38 mEq/L (21-27) H 12/31/17 06:04 Chloride 96 mEq/L (98-107) L 01/01/18 05:44 Carbon Dioxide 41 mEq/L (23-29) H* 01/01/18 05:44 BUN 25 mg/dL (8-23) H 01/01/18 05:44 BUN/Creatinine Ratio 36 (6-26) H 01/01/18 05:44 Glucose 184 mg/dL (70-105) H 01/01/18 05:44 POC Glucose 174 mg/dL (70-99) H 01/01/18 10:10 AST 10 Units/L (13-39) L 01/01/18 05:44 ALT 4 Units/L (7-52) L 01/01/18 05:44 B-Natriuretic Peptide 500 pg/mL (Less than 100) H 01/01/18 05:44 - Microbiology Findings Microbiology Findings: Microbiology, Last 48 Hours 12/31/17 08:56 Blood Culture - Preliminary Peripheral Venipuncture No growth. - Clinical Findings Intake & Output: Intake & Output 12/31/17 01/01/1818 23:59 07:59 15:59 Intake Total 200 / 200 Balance 200 / 200 Weight 77.3 kg - Attending Attestation I saw and evaluated this patient and my medical decision-making was reviewed with the Resident Physician. I agree with the documented findings, disposition and treatment plan as described except to the extent set forth below. We independently had [id number] contact with the patient I spent 45 minutes of Critical Care time with this patient. It involved decision making of high complexity to assess, manipulate, and support vital organ system failure and/or to prevent further life threatening deterioration of the patient's condition. The time involved in the performance of separately reportable procedures was not counted toward critical care time. Patient seen and examined at bedside Labs, radiology, chart personally reviewed. Management was reviewed during multidisciplinary critical care rounds. CONCRETE BLOCK MOLDER: Patient altered mental status with profound hypercarbia and acidosis most likely this is the cause for encephalopathy Pulm: Acute on chronic hypoxic and hypercarbic respiratory failure secondary to COPD exacerbation to continue bronchodilators , steroids because of endstage COPD will add anti-pseudomonal coverage . Intubated with Low tidal volume RR adjusted to prevent significant airtrapping will repeat ABG after intubation . Cards: Patient has some acute on chronic diastolic dysfunction will gently diurese if blood pressure tolerates FEN-GI:NPO for now Renal:Labs reviewed ID:No active source of infection CXR shows some chronic interstitial changes Heme/Onc:Labs reviewed Endo: Glucose Monitored Integ/MSK: Skin Care per routine ICU Nursing Protocol to prevent ulcers. Lines: All lines examined without evidence of infection : Dispo: Critically ill CODE:Full Code
[2018-01-01] MEDS ORDERED: D5% in Water 1,000 ML IVC PRN (11:07)
[2018-01-01] MEDS ORDERED: Naloxone 0.4 MG/ML INJ IVP PRN (11:07)
[2018-01-01] MEDS ORDERED: *HR* Dextrose 50 % in Water (Syg) 50 ML SYRINGE IVP PRN (11:07)
[2018-01-01] MEDS ORDERED: Dextrose Gel 15 GM/37.5 ML TUBE PO PRN ×2 (11:07)
[2018-01-01] MEDS ORDERED: Acetaminophen 325 MG TABLET PO PRN (11:07)
[2018-01-01 11:18] LABS: ABG Base Excess 9 mEq/L (-2 to 3); ABG HCO3 43 mEq/L (21-27); ABG Oxygen Saturation 79 % (95-98); ABG PCO2 126 mmHg (35-45); ABG PH 7.14 pH Units (7.32-7.45); ABG PO2 61 mmHg (85-104); ABG TCO2 46 mEq/L (20-26); Blood Gas PEEP 5 cm H2O; Blood Gas VT 450 cc
[2018-01-01 12:04] LABS: ABG Base Excess 11 mEq/L (-2 to 3); ABG HCO3 45 mEq/L (21-27); ABG Oxygen Saturation 76 % (95-98); ABG PCO2 129 mmHg (35-45); ABG PH 7.15 pH Units (7.32-7.45); ABG PO2 57 mmHg (85-104); ABG TCO2 49 mEq/L (20-26); Blood Gas PEEP 5 cm H2O; Blood Gas VT 450 cc
[2018-01-01] MEDS ORDERED: Lacri-Lube 3.5 GM TUBE BOTH EYES PRN (12:20)
--- NOTE | 2018-01-01 12:28 | Procedure Note ---
<Bora Michaud - Last Filed: 01/01/18 12:24> Date of procedure: 01/01/18 Pre-op diagnosis: Acute hypoxic respiratory failure Post-op diagnosis: same Procedure: Procedure: Endotracheal intubation Date: 01/01/18 Time: 1225 Shuttle Car Operator: DO Jaswant Attending: MD Nelly Indication: Acute hypoxic hypercapnic respiratory failure The patient was placed in supine position. All equipment was checked and operational before beginning the procedure. Sedation was obtained using 5mg IV Versed. Patient was paralyzed using 15mg IV Etomidate. The patient was easily ventilated using an Ambu bag. dbBlade of GLIDESCOPE was inserted into the oropharynx at which time a grade 1 view of the vocal cords was visualized. A 7.5 Italian endotracheal tube was inserted and visualized going through the cords. The stylet was removed. Colorimetric change was visualized on the CO2 meter. Breath sounds were heard in both lung renee. There were no breast breath sounds auscultated over the stomach. The endotracheal tube was placed at 24 cm at the lip line. Attending physician Dr. Villegas was in attendance throughout the entirety of the procedures. A chest x-ray was ordered afterwards to assess for pneumothorax and placement of the endotracheal tube. The patient tolerated the procedure well without desaturation or hemodynamic compromise. Anesthesia: IV sedation Surgeon: Bora Michaud Was there an campaign assistant present: Yes Transporter Driver: Dave Villegas Estimated blood loss (cc): 0 Specimen: 0 Pathology: none sent Condition: critical Disposition: ICU <Dave Villegas - Last Filed: 01/01/18 15:11> Procedure: I was present for the entire procedure assisted in critical portions . Patient tolerated the procedure well.
[2018-01-01] MEDS ORDERED: Dexmedetomidine HCl 400 MCG/100 ML MLS IVC ONE (12:33)
[2018-01-01] MEDS: Dexmedetomidine HCl 400 MCG/100 ML MLS IVC SCH ×2 (12:38→20:41)
[2018-01-01] MEDS ORDERED: *HR* FentaNYL (PF) 100 MCG/2 ML VIAL IVP ONE (13:04)
[2018-01-01] MEDS ORDERED: *HR* FentaNYL (PF) 100 MCG/2 ML VIAL ONE (13:06)
[2018-01-01] MEDS: FentaNYL (PF) 1,000 MCG in 0.9 % Sodium Chloride 80 ML IVC SCH ×2 (13:35→20:40)
[2018-01-01 14:05] LABS: ABG Base Excess 12 mEq/L (-2 to 3); ABG HCO3 42 mEq/L (21-27); ABG Oxygen Saturation 79 % (95-98); ABG PCO2 94 mmHg (35-45); ABG PH 7.26 pH Units (7.32-7.45); ABG PO2 53 mmHg (85-104); ABG TCO2 45 mEq/L (20-26); Blood Gas Modality PRVC; Blood Gas PEEP 5 cm H2O; Blood Gas Respiration Rate 16; Blood Gas VT 400 cc
[2018-01-01] MEDS: Levofloxacin 750 MG/150 ML 750 MG/150 ML BAG IVPB SCH (14:47)
[2018-01-01] MEDS: Piperacillin/Tazobactam 3.375 GM in 0.9 % Sodium Chloride Mini Bag 100 ML IVPB SCH ×2 (16:57→23:00)
[2018-01-01] MEDS: Lacri-Lube 3.5 GM TUBE BOTH EYES SCH ×3 (16:57→23:02)
[2018-01-01] MEDS: Chlorhexidine Rinse 15 ML MOUTHWASH MM SCH (20:07)
[2018-01-01 22:42] LABS: ABG Base Excess 15 mEq/L (-2 to 3); ABG HCO3 43 mEq/L (21-27); ABG Oxygen Saturation 87 % (95-98); ABG PCO2 75 mmHg (35-45); ABG PH 7.37 pH Units (7.32-7.45); ABG PO2 57 mmHg (85-104); ABG TCO2 46 mEq/L (20-26); Blood Gas Modality ASSIST CONTROL; Blood Gas PEEP 5 cm H2O; Blood Gas Respiration Rate 16; Blood Gas VT 400 cc
[2018-01-02] MEDS: FentaNYL (PF) 1,000 MCG in 0.9 % Sodium Chloride 80 ML IVC SCH ×4 (02:06→19:35)
[2018-01-02] MEDS: Ipratropium/Albuterol Neb 3 ML IH SCH ×6 (03:21→23:51)
[2018-01-02] MEDS: Lacri-Lube 3.5 GM TUBE BOTH EYES SCH ×6 (04:05→23:58)
[2018-01-02] MEDS: Dexmedetomidine HCl 400 MCG/100 ML MLS IVC SCH ×4 (04:11→22:41)
[2018-01-02 04:23] LABS: Hematocrit 31.9 % (35.3-44.9); Immature Granulocytes % 0.6 % (0-4); Lymphocytes # 0.3 K/mcL (0.6-4.6); Lymphocytes % 4.5 %; Mean Corpuscular Hemoglobin 29.2 pg (28.0-33.3); Mean Corpuscular Volume 94.1 fL (83.0-100.0); Mean Platelet Volume 10.7 fL (9.4-12.4); Monocytes # 0.2 K/mcL (0.0-1.3); Neutrophils # 6.5 K/mcL (1.6-8.9); Platelet Count 136 K/mcL (140-400); Red Blood Count 3.39 M/mcL (3.82-4.97); Red Cell Distribution Width 13.9 % (11.5-14.5); Segmented Neutrophils % 91.9 %
[2018-01-02 04:37] LABS: Hemoglobin 9.9 g/dL (11.5-15.4)
[2018-01-02 04:42] LABS: Calcium 8.9 mg/dL (8.6-10.3); Potassium 4.3 mEq/L (3.5-5.1)
[2018-01-02 04:57] LABS: ABG Base Excess 14 mEq/L (-2 to 3); ABG HCO3 41 mEq/L (21-27); ABG Oxygen Saturation 87 % (95-98); ABG PCO2 68 mmHg (35-45); ABG PH 7.39 pH Units (7.32-7.45); ABG PO2 55 mmHg (85-104); ABG TCO2 43 mEq/L (20-26); Blood Gas Modality PRVC; Blood Gas PEEP 5 cm H2O; Blood Gas Respiration Rate 16; Blood Gas VT 400 cc
[2018-01-02] MEDS: *HR* Heparin 5,000 UNIT/ML VIAL SQ SCH ×3 (08:26→23:59)
[2018-01-02] MEDS: Chlorhexidine Rinse 15 ML MOUTHWASH MM SCH ×2 (08:26→19:16)
[2018-01-02] MEDS: MethylPREDNISolone 40 MG/ML VIAL IVP SCH ×3 (08:26→23:56)
[2018-01-02] MEDS: Pantoprazole 40 MG VIAL IVP SCH (08:26)
[2018-01-02] MEDS: Piperacillin/Tazobactam 3.375 GM in 0.9 % Sodium Chloride Mini Bag 100 ML IVPB SCH (08:26)
[2018-01-02] MEDS: Nicotine 14 MG PATCH.TD24 TD SCH (08:27)
[2018-01-02] MEDS: amLODIPine 5 MG TABLET PO SCH (08:27)
[2018-01-02] MEDS: lamoTRIgine 100 MG TABLET PO SCH (08:28)
[2018-01-02] MEDS: Losartan/HCTZ 50-12.5 TABLET PO SCH (08:28)
[2018-01-02] MEDS: Cholecalciferol (D-3) 1,000 UNIT TABLET PO SCH (08:28)
[2018-01-02] MEDS: Gabapentin 300 MG CAPSULE PO SCH ×2 (08:28→19:17)
[2018-01-02] MEDS: Insulin LISPRO 300 UNITS/3 ML VIAL SQ SCH ×3 (08:28→16:03)
[2018-01-02] MEDS: Folic Acid 1 MG TABLET PO SCH (08:28)
[2018-01-02] MEDS: Levofloxacin 750 MG/150 ML 750 MG/150 ML BAG IVPB SCH (08:29)
[2018-01-02] MEDS: Potassium Chloride Elixir 20 MEQ/15 ML UDC GTUBE SCH ×3 (08:35→19:17)
[2018-01-02] MEDS: Aspirin 325 MG TABLET PO SCH (08:35)
[2018-01-02] MEDS ORDERED: Patient Taking Own Medication 1 EACH PO SCH ×2 (09:00)
[2018-01-02] MEDS ORDERED: Aspirin Enteric Coated 325 MG Tablet PO SCH (09:00)
[2018-01-02 09:18] LABS: ABG Base Excess 13 mEq/L (-2 to 3); ABG HCO3 40 mEq/L (21-27); ABG Oxygen Saturation 90 % (95-98); ABG PCO2 61 mmHg (35-45); ABG PH 7.42 pH Units (7.32-7.45); ABG PO2 60 mmHg (85-104); ABG TCO2 42 mEq/L (20-26); Blood Gas Modality VC; Blood Gas PEEP 5 cm H2O; Blood Gas Respiration Rate 12; Blood Gas VT 500 cc
[2018-01-02] MEDS ORDERED: 0.9 % Sodium Chloride 1,000 ML IVC ONE (09:33)
--- NOTE | 2018-01-02 09:41 | Pulmonology Progress Note ---
<Felipe Putnam M - Last Filed: 01/02/18 10:31> Date of Encounter: 01/02/18 Objective PUL Vital signs: Last Vital Signs Temp 100.2 F H 01/02/18 08:09 Pulse 88 01/02/18 09:00 Resp 12 01/02/18 09:00 BP 153/81 01/02/18 09:00 Pulse Ox 95 01/02/18 08:11 Ventilator Settings Ventilator Settings: Ventilator Settings, Last 8 Hours Ventilator Mode VC+ Ventilator Mode VC+ Ventilator Mode VC+ Ventilator Mode VC+ Ventilator Mode VC+ Ventilator Tidal Volume 500 Setting Ventilator Tidal Volume 500 Setting Ventilator Tidal Volume 500 Setting Ventilator Tidal Volume 500 Setting Ventilator Tidal Volume 500 Setting Ventilator Tidal Volume 400 Setting Ventilator Tidal Volume 400 Setting Ventilator Tidal Volume 400 Setting Ventilator Tidal Volume 400 Setting Ventilator Tidal Volume 400 Setting Ventilator Tidal Volume 400 Setting Ventilator Tidal Volume 400 Setting Ventilator Tidal Volume 400 Setting Ventilator Respiratory Rate 12 Setting Ventilator Respiratory Rate 12 Setting Ventilator Respiratory Rate 12 Setting Ventilator Respiratory Rate 12 Setting Ventilator Respiratory Rate 12 Setting Ventilator Respiratory Rate 16 Setting Ventilator Respiratory Rate 16 Setting Ventilator Respiratory Rate 16 Setting Ventilator Respiratory Rate 16 Setting Ventilator Respiratory Rate 16 Setting Ventilator Respiratory Rate 16 Setting Ventilator Respiratory Rate 16 Setting Ventilator Respiratory Rate 16 Setting Actual Respiratory Rate 12 Actual Respiratory Rate 12 Actual Respiratory Rate 16 Actual Respiratory Rate 16 Actual Respiratory Rate 16 Actual Respiratory Rate 16 Actual Respiratory Rate 16 Actual Respiratory Rate 16 Actual Respiratory Rate 16 Positive End Expiratory 5 Pressure Positive End Expiratory 5 Pressure Positive End Expiratory 5 Pressure Positive End Expiratory 5 Pressure Positive End Expiratory 5 Pressure Positive End Expiratory 5 Pressure Positive End Expiratory 5 Pressure Positive End Expiratory 5 Pressure Positive End Expiratory 5 Pressure Positive End Expiratory 5 Pressure Positive End Expiratory 5 Pressure Positive End Expiratory 5 Pressure Positive End Expiratory 5 Pressure Peak Inspiratory Airway 32 Pressure Peak Inspiratory Airway 24 Pressure Peak Inspiratory Airway 24 Pressure Peak Inspiratory Airway 26 Pressure Peak Inspiratory Airway 26 Pressure Peak Inspiratory Airway 25 Pressure Peak Inspiratory Airway 23 Pressure Peak Inspiratory Airway 25 Pressure Results - Laboratory Findings CBC and BMP: 01/02/18 04:00 01/02/18 04:00 ABG ABG pH 7.42 pH Units (7.32-7.45) 01/02/18 09:15 ABG pCO2 61 mmHg (35-45) H 01/02/18 09:15 ABG pO2 60 mmHg (85-104) L 01/02/18 09:15 ABG O2 Saturation 90 % (95-98) L 01/02/18 09:15 PT/INR, D-dimer PT 11.3 Seconds (9.4-12.1) 01/01/18 05:44 Abnormal lab findings: Abnormal lab results RBC 3.39 M/mcL (3.82-4.97) L 01/02/18 04:00 Hgb 9.9 g/dL (11.5-15.4) L D 01/02/18 04:00 Hct 31.9 % (35.3-44.9) L 01/02/18 04:00 MCHC 31.0 g/dL (31.6-35.5) L 01/02/18 04:00 Plt Count 136 K/mcL (140-400) L 01/02/18 04:00 Lymphocytes # 0.3 K/mcL (0.6-4.6) L 01/02/18 04:00 ABG pCO2 61 mmHg (35-45) H 01/02/18 09:15 ABG pO2 60 mmHg (85-104) L 01/02/18 09:15 ABG HCO3 40 mEq/L (21-27) H 01/02/18 09:15 ABG Total CO2 42 mEq/L (20-26) H 01/02/18 09:15 ABG O2 Saturation 90 % (95-98) L 01/02/18 09:15 ABG Base Excess 13 mEq/L (-2 to 3) H 01/02/18 09:15 VBG pH 7.30 pH Units (7.32-7.42) L 12/31/17 06:04 VBG pCO2 78 mmHg (41-51) H* 12/31/17 06:04 VBG pO2 151 mmHg (25-50) H 12/31/17 06:04 VBG HCO3 38 mEq/L (21-27) H 12/31/17 06:04 Chloride 96 mEq/L (98-107) L 01/02/18 04:00 Carbon Dioxide 36 mEq/L (23-29) H 01/02/18 04:00 BUN 43 mg/dL (8-23) H 01/02/18 04:00 Creatinine 1.22 mg/dL (0.60-1.20) H 01/02/18 04:00 Est GFR ( Amer) 53 (> 60) L 01/02/18 04:00 Est GFR (Non-Af Amer) 44 (> 60) L 01/02/18 04:00 BUN/Creatinine Ratio 35 (6-26) H 01/02/18 04:00 Glucose 174 mg/dL (70-105) H 01/02/18 04:00 POC Glucose 253 mg/dL (70-99) H 01/02/18 07:25 Calculated Osmolality 305 (280-300) H 01/02/18 04:00 AST 10 Units/L (13-39) L 01/01/18 05:44 ALT 4 Units/L (7-52) L 01/01/18 05:44 B-Natriuretic Peptide 500 pg/mL (Less than 100) H 01/01/18 05:44 - Microbiology Findings Microbiology Findings: Microbiology, Last 48 Hours 12/31/17 08:56 Blood Culture - Preliminary Peripheral Venipuncture No growth. - Clinical Findings Intake & Output: Intake & Output 01/01/18 01/02/18 01/02/18 23:59 07:59 15:59 Intake Total 444 / 444 300 / 300 100 / 100 Output Total 100 / 100 100 / 100 225 / 225 Balance 344 / 344 200 / 200 -125 / -125 Weight 77 kg Consult Discharge Plan - Plan Referrals: Jose G Toure MD [Primary Care Provider] - - Attending Attestation I examined this patient and my medical decision-making was reviewed with the Resident Physician. I agree with the documented findings, disposition and treatment plan as described except to the extent set forth below. Patient seen and examined. Labs, radiology, chart personally reviewed. 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 Cardiovascular: stable GI: Nutrition per dietary and GI prophylaxis per routine Heme: DVT prophylaxis per routine ID: Continue antibiotics and plan to de-escalation. Stop Zosyn Renal; urine out put and renal funtion reviewed Endorcine: blood glucose is monitored Lines: all lines checked and no evidence of infections Skin: skin care to prevent pressure ulcers per nursing routine care I spent 35 min of Critical Care time with this patient. It involved decision making of high complexity to assess, manipulate, and support vital organ system failure and/or to prevent further life threatening deterioration of the patient' s condition. The time involved in the performance of separately reportable procedures was not counted toward critical care time. <Liam Coleman - Last Filed: 01/02/18 16:55> Date of Encounter: 01/02/18 Time of Encounter: 09:41 Assessment and Plan (1) Acute respiratory failure with hypoxia and hypercapnia Current Visit: Yes Status: Acute - Acute on chronic respiratory failure secondary to likely COPD exacerbation - ABG on admission showed a respiratory acidosis with a pH of 7.14 and a CO2 of 134 - This did require intubation on 01/01 - Most recent ABG showing a pH of 7.42 with CO2 improved to 61 - Chest x-ray showed mild edema superimposed on likely COPD Plan - Continue ventilator support as necessary - Attempt to wean tomorrow, patient failed CPAP today. Likely has an anxiety component - Start Klonopin for anxiety - Continue Solu-Medrol, however will decrease dose from 40 mg every 8 hours to every 12 hours - Continue breathing treatments, Levaquin (2) Acute metabolic encephalopathy Current Visit: Yes Status: Acute - Secondary to hypercapnia secondary to COPD exacerbation as above - We will continue to treat the underlying illness - Continue to monitor for signs of improvement (3) Acute exacerbation of chronic obstructive airways disease Current Visit: Yes Status: Acute As above for respiratory failure (4) Respiratory acidosis Current Visit: Yes Status: Resolved Results Most recent pH on ABG of 7.42 Still requiring ventilator support as above (5) Diabetes mellitus Current Visit: Yes Status: Chronic - History of type 2 diabetes with peripheral neuropathy - Most recent blood sugar of 174 - A1c in August 2017 of 5.8% - Continue sliding scale insulin Qualifiers: Diabetes mellitus type: type 2 Diabetes mellitus penitentiary insulin use: without penitentiary use Diabetes mellitus complication status: with hyperglycemia Qualified Code(s): E11.65 - Type 2 diabetes mellitus with hyperglycemia (6) Hypertension Current Visit: Yes Status: Chronic - Most recent BP of 153/81 - Continue home medications Qualifiers: Hypertension type: essential hypertension Qualified Code(s): I10 - Essential (primary) hypertension (7) Hypothyroidism Current Visit: Yes Status: Chronic Continue Synthroid when able to take by mouth meds Qualifiers: Hypothyroidism type: unspecified Qualified Code(s): E03.9 - Hypothyroidism , unspecified (8) DOMINIK (acute kidney injury) Current Visit: No Status: Resolved - Most recent creatinine this morning was 1.22 - Baseline creatinine appears to be around 0.8 - History of stage III CKD per chart review - Possibly secondary to medication effect Plan - Continue to monitor with daily labs - Avoid nephrotoxic medications - We will hold methotrexate for rheumatoid arthritis (9) DVT prophylaxis Current Visit: Yes Status: Acute Heparin 5000 units every 8 hours Subjective Principal diagnosis: Acute on chronic respiratory failure Interval history: Patient seen and examined at bedside this AM. She was intubated yesterday due to hypersomulence and non improvement of respiratory acidosis on BiPAP. She is unable to provide an interval history this AM. No acute events overnight. Objective PUL Vital signs: Last Vital Signs Temp 100.2 F H 01/02/18 08:09 Pulse 88 01/02/18 09:00 Resp 12 01/02/18 09:00 BP 153/81 01/02/18 09:00 Pulse Ox 95 01/02/18 08:11 Gen.: Vitals noted. No acute distress. Intubated and sedated, resting comfortably HEENT: PERRL/EOMI, oropharynx clear, Normocephalic, atraumatic, MMM Cardiac: RRR, no murmur, +S1/S2 Pulmonary: Mild diffuse rhonchi, equal chest expansion Abdomen: soft, nontender, BS noted, no guarding, no rebound. Extremities: no BLE edema, nontender calf, no cyanosis or clubbing Neuro: sedation Ventilator Settings Ventilator Settings: Ventilator Settings, Last 8 Hours Ventilator Mode VC+ Ventilator Mode VC+ Ventilator Mode VC+ Ventilator Mode VC+ Ventilator Mode VC+ Ventilator Tidal Volume 500 Setting Ventilator Tidal Volume 500 Setting Ventilator Tidal Volume 500 Setting Ventilator Tidal Volume 500 Setting Ventilator Tidal Volume 500 Setting Ventilator Tidal Volume 400 Setting Ventilator Tidal Volume 400 Setting Ventilator Tidal Volume 400 Setting Ventilator Tidal Volume 400 Setting Ventilator Tidal Volume 400 Setting Ventilator Tidal Volume 400 Setting Ventilator Tidal Volume 400 Setting Ventilator Tidal Volume 400 Setting Ventilator Respiratory Rate 12 Setting Ventilator Respiratory Rate 12 Setting Ventilator Respiratory Rate 12 Setting Ventilator Respiratory Rate 12 Setting Ventilator Respiratory Rate 12 Setting Ventilator Respiratory Rate 16 Setting Ventilator Respiratory Rate 16 Setting Ventilator Respiratory Rate 16 Setting Ventilator Respiratory Rate 16 Setting Ventilator Respiratory Rate 16 Setting Ventilator Respiratory Rate 16 Setting Ventilator Respiratory Rate 16 Setting Ventilator Respiratory Rate 16 Setting Actual Respiratory Rate 12 Actual Respiratory Rate 12 Actual Respiratory Rate 16 Actual Respiratory Rate 16 Actual Respiratory Rate 16 Actual Respiratory Rate 16 Actual Respiratory Rate 16 Actual Respiratory Rate 16 Actual Respiratory Rate 16 Positive End Expiratory 5 Pressure Positive End Expiratory 5 Pressure Positive End Expiratory 5 Pressure Positive End Expiratory 5 Pressure Positive End Expiratory 5 Pressure Positive End Expiratory 5 Pressure Positive End Expiratory 5 Pressure Positive End Expiratory 5 Pressure Positive End Expiratory 5 Pressure Positive End Expiratory 5 Pressure Positive End Expiratory 5 Pressure Positive End Expiratory 5 Pressure Positive End Expiratory 5 Pressure Peak Inspiratory Airway 32 Pressure Peak Inspiratory Airway 24 Pressure Peak Inspiratory Airway 24 Pressure Peak Inspiratory Airway 26 Pressure Peak Inspiratory Airway 26 Pressure Peak Inspiratory Airway 25 Pressure Peak Inspiratory Airway 23 Pressure Peak Inspiratory Airway 25 Pressure Results - Laboratory Findings CBC and BMP: 01/02/18 04:00 01/02/18 04:00 ABG ABG pH 7.42 pH Units (7.32-7.45) 01/02/18 09:15 ABG pCO2 61 mmHg (35-45) H 01/02/18 09:15 ABG pO2 60 mmHg (85-104) L 01/02/18 09:15 ABG O2 Saturation 90 % (95-98) L 01/02/18 09:15 PT/INR, D-dimer PT 11.3 Seconds (9.4-12.1) 01/01/18 05:44 Abnormal lab findings: Abnormal lab results RBC 3.39 M/mcL (3.82-4.97) L 01/02/18 04:00 Hgb 9.9 g/dL (11.5-15.4) L D 01/02/18 04:00 Hct 31.9 % (35.3-44.9) L 01/02/18 04:00 MCHC 31.0 g/dL (31.6-35.5) L 01/02/18 04:00 Plt Count 136 K/mcL (140-400) L 01/02/18 04:00 Lymphocytes # 0.3 K/mcL (0.6-4.6) L 01/02/18 04:00 ABG pCO2 61 mmHg (35-45) H 01/02/18 09:15 ABG pO2 60 mmHg (85-104) L 01/02/18 09:15 ABG HCO3 40 mEq/L (21-27) H 01/02/18 09:15 ABG Total CO2 42 mEq/L (20-26) H 01/02/18 09:15 ABG O2 Saturation 90 % (95-98) L 05/07/18 09:15 ABG Base Excess 13 mEq/L (-2 to 3) H 01/02/18 09:15 VBG pH 7.30 pH Units (7.32-7.42) L 12/31/17 06:04 VBG pCO2 78 mmHg (41-51) H* 12/31/17 06:04 VBG pO2 151 mmHg (25-50) H 12/31/17 06:04 VBG HCO3 38 mEq/L (21-27) H 12/31/17 06:04 Chloride 96 mEq/L (98-107) L 01/02/18 04:00 Carbon Dioxide 36 mEq/L (23-29) H 01/02/18 04:00 BUN 43 mg/dL (8-23) H 01/02/18 04:00 Creatinine 1.22 mg/dL (0.60-1.20) H 01/02/18 04:00 Est GFR ( Amer) 53 (> 60) L 01/02/18 04:00 Est GFR (Non-Af Amer) 44 (> 60) L 01/02/18 04:00 BUN/Creatinine Ratio 35 (6-26) H 01/02/18 04:00 Glucose 174 mg/dL (70-105) H 01/02/18 04:00 POC Glucose 253 mg/dL (70-99) H 01/02/18 07:25 Calculated Osmolality 305 (280-300) H 01/02/18 04:00 AST 10 Units/L (13-39) L 01/01/18 05:44 ALT 4 Units/L (7-52) L 01/01/18 05:44 B-Natriuretic Peptide 500 pg/mL (Less than 100) H 01/01/18 05:44 - Microbiology Findings Microbiology Findings: Microbiology, Last 48 Hours 12/31/17 08:56 Blood Culture - Preliminary Peripheral Venipuncture No growth. - Clinical Findings Intake & Output: Intake & Output 01/01/18 01/02/18 01/02/18 23:59 07:59 15:59 Intake Total 444 / 444 300 / 300 100 / 100 Output Total 100 / 100 100 / 100 225 / 225 Balance 344 / 344 200 / 200 -125 / -125 Weight 77 kg
[2018-01-02] MEDS: clonazePAM 1 MG TABLET PO PRN (15:55)
[2018-01-03] MEDS: FentaNYL (PF) 1,000 MCG in 0.9 % Sodium Chloride 80 ML IVC SCH ×3 (01:38→23:38)
[2018-01-03] MEDS: Ipratropium/Albuterol Neb 3 ML IH SCH ×6 (03:32→23:24)
[2018-01-03 05:02] LABS: ABG Base Excess 14 mEq/L (-2 to 3); ABG HCO3 41 mEq/L (21-27); ABG Oxygen Saturation 89 % (95-98); ABG PCO2 66 mmHg (35-45); ABG PH 7.41 pH Units (7.32-7.45); ABG PO2 59 mmHg (85-104); ABG TCO2 43 mEq/L (20-26); Blood Gas Modality VC; Blood Gas PEEP 5 cm H2O; Blood Gas Respiration Rate 12; Blood Gas VT 500 cc
[2018-01-03 05:31] LABS: Hematocrit 33.2 % (35.3-44.9); Hemoglobin 10.5 g/dL (11.5-15.4); Immature Granulocytes % 0.4 % (0-4); Lymphocytes # 0.3 K/mcL (0.6-4.6); Lymphocytes % 5.1 %; Mean Corpuscular HGB Conc 31.6 g/dL (31.6-35.5); Mean Corpuscular Hemoglobin 29.2 pg (28.0-33.3); Mean Corpuscular Volume 92.2 fL (83.0-100.0); Mean Platelet Volume 10.7 fL (9.4-12.4); Monocytes # 0.3 K/mcL (0.0-1.3); Monocytes % 5.9 %; Neutrophils # 4.5 K/mcL (1.6-8.9); Platelet Count 141 K/mcL (140-400); Segmented Neutrophils % 88.6 %
[2018-01-03 05:41] LABS: BUN/Creatinine Ratio 49 (6-26); Blood Urea Nitrogen 39 mg/dL (8-23); Calcium 9.1 mg/dL (8.6-10.3); Carbon Dioxide 38 mEq/L (23-29); Chloride 99 mEq/L (98-107); Glucose 188 mg/dL (70-105); Osmolality,Calculated 306 (280-300); Sodium 141 mEq/L (136-145); eGFR For African Americans > 60 (> 60); eGFR For Non-African Americans > 60 (> 60)
[2018-01-03] MEDS: Dexmedetomidine HCl 400 MCG/100 ML MLS IVC SCH ×2 (05:57→15:56)
[2018-01-03] MEDS: Lacri-Lube 3.5 GM TUBE BOTH EYES SCH ×6 (05:59→23:58)
--- NOTE | 2018-01-03 07:22 | Pulmonology Progress Note ---
<IndyGriselyamilex M - Last Filed: 01/03/18 15:31> Date of Encounter: 01/03/18 Objective PUL Vital signs: Last Vital Signs Temp 97.8 F 01/03/18 05:01 Pulse 72 01/03/18 06:00 Resp 15 01/03/18 06:00 BP 163/93 01/03/18 06:00 Pulse Ox 96 01/03/18 06:00 Ventilator Settings Ventilator Settings: Ventilator Settings, Last 8 Hours Ventilator Mode VC+ Ventilator Mode VC+ Ventilator Mode VC+ Ventilator Mode VC+ Ventilator Mode VC+ Ventilator Mode VC+ Ventilator Mode VC+ Ventilator Tidal Volume 500 Setting Ventilator Tidal Volume 500 Setting Ventilator Tidal Volume 500 Setting Ventilator Tidal Volume 500 Setting Ventilator Tidal Volume 500 Setting Ventilator Tidal Volume 500 Setting Ventilator Tidal Volume 500 Setting Ventilator Tidal Volume 500 Setting Ventilator Tidal Volume 500 Setting Ventilator Tidal Volume 500 Setting Ventilator Respiratory Rate 12 Setting Ventilator Respiratory Rate 12 Setting Ventilator Respiratory Rate 12 Setting Ventilator Respiratory Rate 12 Setting Ventilator Respiratory Rate 12 Setting Ventilator Respiratory Rate 12 Setting Ventilator Respiratory Rate 12 Setting Ventilator Respiratory Rate 12 Setting Ventilator Respiratory Rate 12 Setting Ventilator Respiratory Rate 12 Setting Actual Respiratory Rate 12 Actual Respiratory Rate 12 Actual Respiratory Rate 12 Actual Respiratory Rate 12 Actual Respiratory Rate 12 Actual Respiratory Rate 12 Actual Respiratory Rate 12 Actual Respiratory Rate 12 Actual Respiratory Rate 12 Positive End Expiratory 5 Pressure Positive End Expiratory 5 Pressure Positive End Expiratory 5 Pressure Positive End Expiratory 5 Pressure Positive End Expiratory 5 Pressure Positive End Expiratory 5 Pressure Positive End Expiratory 5 Pressure Positive End Expiratory 5 Pressure Positive End Expiratory 5 Pressure Positive End Expiratory 5 Pressure Peak Inspiratory Airway 28 Pressure Peak Inspiratory Airway 28 Pressure Peak Inspiratory Airway 34 Pressure Peak Inspiratory Airway 31 Pressure Peak Inspiratory Airway 31 Pressure Peak Inspiratory Airway 34 Pressure Peak Inspiratory Airway 34 Pressure Peak Inspiratory Airway 38 Pressure Peak Inspiratory Airway 40 Pressure Results - Laboratory Findings CBC and BMP: 01/03/18 05:00 01/03/18 05:00 ABG ABG pH 7.41 pH Units (7.32-7.45) 01/03/18 04:58 ABG pCO2 66 mmHg (35-45) H 01/03/18 04:58 ABG pO2 59 mmHg (85-104) L 01/03/18 04:58 ABG O2 Saturation 89 % (95-98) L 01/03/18 04:58 PT/INR, D-dimer PT 11.3 Seconds (9.4-12.1) 05/06/18 05:44 Abnormal lab findings: Abnormal lab results RBC 3.60 M/mcL (3.82-4.97) L 01/03/18 05:00 Hgb 10.5 g/dL (11.5-15.4) L 01/03/18 05:00 Hct 33.2 % (35.3-44.9) L 01/03/18 05:00 Lymphocytes # 0.3 K/mcL (0.6-4.6) L 01/03/18 05:00 ABG pCO2 66 mmHg (35-45) H 01/03/18 04:58 ABG pO2 59 mmHg (85-104) L 01/03/18 04:58 ABG HCO3 41 mEq/L (21-27) H 01/03/18 04:58 ABG Total CO2 43 mEq/L (20-26) H 01/03/18 04:58 ABG O2 Saturation 89 % (95-98) L 01/03/18 04:58 ABG Base Excess 14 mEq/L (-2 to 3) H 01/03/18 04:58 VBG pH 7.30 pH Units (7.32-7.42) L 12/31/17 06:04 VBG pCO2 78 mmHg (41-51) H* 12/31/17 06:04 VBG pO2 151 mmHg (25-50) H 12/31/17 06:04 VBG HCO3 38 mEq/L (21-27) H 12/31/17 06:04 Carbon Dioxide 38 mEq/L (23-29) H 01/03/18 05:00 BUN 39 mg/dL (8-23) H 01/03/18 05:00 BUN/Creatinine Ratio 49 (6-26) H 01/03/18 05:00 Glucose 188 mg/dL (70-105) H 01/03/18 05:00 POC Glucose 182 mg/dL (70-99) H 01/03/18 04:43 Calculated Osmolality 306 (280-300) H 01/03/18 05:00 AST 10 Units/L (13-39) L 01/01/18 05:44 ALT 4 Units/L (7-52) L 01/01/18 05:44 B-Natriuretic Peptide 500 pg/mL (Less than 100) H 01/01/18 05:44 - Microbiology Findings Microbiology Findings: Microbiology, Last 48 Hours 12/31/17 08:56 Blood Culture - Preliminary Peripheral Venipuncture No growth. - Clinical Findings Intake & Output: Intake & Output 01/02/18 01/02/18 01/03/18 15:59 23:59 07:59 Intake Total 550 / 550 513 / 513 365 / 365 Output Total 425 / 425 350 / 350 550 / 550 Balance 125 / 125 163 / 163 -185 / -185 Weight 77.3 kg Consult Discharge Plan - Plan Referrals: Jose G Toure MD [Primary Care Provider] - - Attending Attestation I examined this patient and my medical decision-making was reviewed with the Resident Physician. I agree with the documented findings, disposition and treatment plan as described except to the extent set forth below. Patient seen and examined. Labs, radiology, chart personally reviewed. Agree with resident's history and physical, assessment, plan with following comments: [employer]: Patient follows commands, Pulmonary: Acceptable oxygenation and ventilation him a however she failed spontaneous breathing trial and is still not ready for extubation. Continue supportive care and trial tomorrow. Cardiovascular: stable GI: Nutrition per dietary and GI prophylaxis per routine Heme: DVT prophylaxis per routine ID: Continue antibiotics and plan to de-escalation Renal; urine out put and renal funtion reviewed Endorcine: blood glucose is monitored Lines: all lines checked and no evidence of infections Skin: skin care to prevent pressure ulcers per nursing routine care <Liam Coleman - Last Filed: 01/03/18 18:11> Date of Encounter: 01/03/18 Time of Encounter: 08:04 Assessment and Plan (1) Acute respiratory failure with hypoxia and hypercapnia Current Visit: Yes Status: Acute - Acute on chronic respiratory failure secondary to likely COPD exacerbation - ABG on admission showed a respiratory acidosis with a pH of 7.14 and a CO2 of 134 - This did require intubation on 01/01 - Most recent ABG showing a pH of 7.41 with CO2 improved to 66 - Chest x-ray showed mild edema superimposed on likely COPD - Failed CPAP trial this AM due to low tidal volumes Plan - Continue ventilator support as necessary - Attempt to wean tomorrow, patient failed CPAP today. Likely has an anxiety component - [place] Klonopin for anxiety - Continue Solu-Medrol 40 mg q 12 hours - Continue breathing treatments, Levaquin day 2 (2) Acute metabolic encephalopathy Current Visit: Yes Status: Acute - Secondary to hypercapnia secondary to COPD exacerbation as above - We will continue to treat the underlying illness - Continue to monitor for signs of improvement (3) Acute exacerbation of chronic obstructive airways disease Current Visit: Yes Status: Acute As above for respiratory failure (4) Respiratory acidosis Current Visit: Yes Status: Resolved Resolved Most recent pH on ABG of 7.41 Still requiring ventilator support as above (5) Diabetes mellitus Current Visit: Yes Status: Chronic - History of type 2 diabetes with peripheral neuropathy - Most recent blood sugar of 159 - A1c in August 2017 of 5.8% - Continue sliding scale insulin Qualifiers: Diabetes mellitus type: type 2 Diabetes mellitus senior living insulin use: without terminal clerk use Diabetes mellitus complication status: with hyperglycemia Qualified Code(s): E11.65 - Type 2 diabetes mellitus with hyperglycemia (6) Hypertension Current Visit: Yes Status: Chronic - Most recent BP of 153/82 - Continue home medications Qualifiers: Hypertension type: essential hypertension Qualified Code(s): I10 - Essential (primary) hypertension (7) Hypothyroidism Current Visit: Yes Status: Chronic Continue Synthroid when able to take by mouth meds Qualifiers: Hypothyroidism type: unspecified Qualified Code(s): E03.9 - Hypothyroidism , unspecified (8) DOMINIK (acute kidney injury) Current Visit: Yes Status: Resolved - Resolved - Most recent creatinine this morning was 0.80 - Baseline creatinine appears to be around 0.8 - History of stage III CKD per chart review - Possibly secondary to medication effect Plan - Continue to monitor with daily labs - Avoid nephrotoxic medications - We will hold methotrexate for rheumatoid arthritis (9) DVT prophylaxis Current Visit: Yes Status: Acute Heparin 5000 units every 8 hours Subjective Principal diagnosis: Acute on chronic respiratory failure Interval history: Patient seen and examined at bedside this AM. She was intubated due to hypersomulence and non improvement of respiratory acidosis on BiPAP. She is unable to provide an interval history this AM. No acute events overnight. Objective PUL Vital signs: Last Vital Signs Temp 97.8 F 01/03/18 05:01 Pulse 72 01/03/18 06:00 Resp 15 01/03/18 06:00 BP 163/93 01/03/18 06:00 Pulse Ox 96 01/03/18 06:00 Gen.: Vitals noted. No acute distress. Intubated and sedated, resting comfortably HEENT: PERRL/EOMI, oropharynx clear, Normocephalic, atraumatic, MMM Cardiac: RRR, no murmur, +S1/S2 Pulmonary: Mild diffuse rhonchi, equal chest expansion Abdomen: soft, nontender, BS noted, no guarding, no rebound. mildly distended Extremities: no BLE edema, nontender calf, no cyanosis or clubbing Neuro: sedation Ventilator Settings Ventilator Settings: Ventilator Settings, Last 8 Hours Ventilator Mode VC+ Ventilator Mode VC+ Ventilator Mode VC+ Ventilator Mode VC+ Ventilator Mode VC+ Ventilator Mode VC+ Ventilator Mode VC+ Ventilator Tidal Volume 500 Setting Ventilator Tidal Volume 500 Setting Ventilator Tidal Volume 500 Setting Ventilator Tidal Volume 500 Setting Ventilator Tidal Volume 500 Setting Ventilator Tidal Volume 500 Setting Ventilator Tidal Volume 500 Setting Ventilator Tidal Volume 500 Setting Ventilator Tidal Volume 500 Setting Ventilator Tidal Volume 500 Setting Ventilator Tidal Volume 500 Setting Ventilator Respiratory Rate 12 Setting Ventilator Respiratory Rate 12 Setting Ventilator Respiratory Rate 12 Setting Ventilator Respiratory Rate 12 Setting Ventilator Respiratory Rate 12 Setting Ventilator Respiratory Rate 12 Setting Ventilator Respiratory Rate 12 Setting Ventilator Respiratory Rate 12 Setting Ventilator Respiratory Rate 12 Setting Ventilator Respiratory Rate 12 Setting Ventilator Respiratory Rate 12 Setting Actual Respiratory Rate 12 Actual Respiratory Rate 12 Actual Respiratory Rate 12 Actual Respiratory Rate 12 Actual Respiratory Rate 12 Actual Respiratory Rate 12 Actual Respiratory Rate 12 Actual Respiratory Rate 12 Actual Respiratory Rate 12 Actual Respiratory Rate 12 Positive End Expiratory 5 Pressure Positive End Expiratory 5 Pressure Positive End Expiratory 5 Pressure Positive End Expiratory 5 Pressure Positive End Expiratory 5 Pressure Positive End Expiratory 5 Pressure Positive End Expiratory 5 Pressure Positive End Expiratory 5 Pressure Positive End Expiratory 5 Pressure Positive End Expiratory 5 Pressure Positive End Expiratory 5 Pressure Peak Inspiratory Airway 28 Pressure Peak Inspiratory Airway 28 Pressure Peak Inspiratory Airway 34 Pressure Peak Inspiratory Airway 31 Pressure Peak Inspiratory Airway 31 Pressure Peak Inspiratory Airway 34 Pressure Peak Inspiratory Airway 34 Pressure Peak Inspiratory Airway 38 Pressure Peak Inspiratory Airway 40 Pressure Peak Inspiratory Airway 32 Pressure Results - Laboratory Findings CBC and BMP: 01/03/18 05:00 01/03/18 05:00 ABG ABG pH 7.41 pH Units (7.32-7.45) 01/03/18 04:58 ABG pCO2 66 mmHg (35-45) H 01/03/18 04:58 ABG pO2 59 mmHg (85-104) L 01/03/18 04:58 ABG O2 Saturation 89 % (95-98) L 01/03/18 04:58 PT/INR, D-dimer PT 11.3 Seconds (9.4-12.1) 01/01/18 05:44 Abnormal lab findings: Abnormal lab results RBC 3.60 M/mcL (3.82-4.97) L 01/03/18 05:00 Hgb 10.5 g/dL (11.5-15.4) L 01/03/18 05:00 Hct 33.2 % (35.3-44.9) L 01/03/18 05:00 Lymphocytes # 0.3 K/mcL (0.6-4.6) L 01/03/18 05:00 ABG pCO2 66 mmHg (35-45) H 01/03/18 04:58 ABG pO2 59 mmHg (85-104) L 01/03/18 04:58 ABG HCO3 41 mEq/L (21-27) H 01/03/18 04:58 ABG Total CO2 43 mEq/L (20-26) H 01/03/18 04:58 ABG O2 Saturation 89 % (95-98) L 01/03/18 04:58 ABG Base Excess 14 mEq/L (-2 to 3) H 01/03/18 04:58 VBG pH 7.30 pH Units (7.32-7.42) L 12/31/17 06:04 VBG pCO2 78 mmHg (41-51) H* 12/31/17 06:04 VBG pO2 151 mmHg (25-50) H 12/31/17 06:04 VBG HCO3 38 mEq/L (21-27) H 12/31/17 06:04 Carbon Dioxide 38 mEq/L (23-29) H 01/03/18 05:00 BUN 39 mg/dL (8-23) H 01/03/18 05:00 BUN/Creatinine Ratio 49 (6-26) H 01/03/18 05:00 Glucose 188 mg/dL (70-105) H 01/03/18 05:00 POC Glucose 182 mg/dL (70-99) H 01/03/18 04:43 Calculated Osmolality 306 (280-300) H 01/03/18 05:00 AST 10 Units/L (13-39) L 01/01/18 05:44 ALT 4 Units/L (7-52) L 01/01/18 05:44 B-Natriuretic Peptide 500 pg/mL (Less than 100) H 01/01/18 05:44 - Microbiology Findings Microbiology Findings: Microbiology, Last 48 Hours 12/31/17 08:56 Blood Culture - Preliminary Peripheral Venipuncture No growth. - Clinical Findings Intake & Output: Intake & Output 01/02/18 01/02/18 01/03/18 15:59 23:59 07:59 Intake Total 550 / 550 513 / 513 365 / 365 Output Total 425 / 425 350 / 350 550 / 550 Balance 125 / 125 163 / 163 -185 / -185 Weight 77.3 kg
[2018-01-03] MEDS: Insulin LISPRO 300 UNITS/3 ML VIAL SQ SCH ×3 (08:18→16:07)
[2018-01-03] MEDS: Nicotine 14 MG PATCH.TD24 TD SCH (08:23)
[2018-01-03] MEDS: *HR* Heparin 5,000 UNIT/ML VIAL SQ SCH ×3 (08:24→23:48)
[2018-01-03] MEDS: Gabapentin 300 MG CAPSULE PO SCH ×2 (08:24→19:52)
[2018-01-03] MEDS: Aspirin 325 MG TABLET PO SCH (08:24)
[2018-01-03] MEDS: MethylPREDNISolone 40 MG/ML VIAL IVP SCH ×3 (08:24→23:49)
[2018-01-03] MEDS: lamoTRIgine 100 MG TABLET PO SCH (08:25)
[2018-01-03] MEDS: Folic Acid 1 MG TABLET PO SCH (08:25)
[2018-01-03] MEDS: Cholecalciferol (D-3) 1,000 UNIT TABLET PO SCH (08:25)
[2018-01-03] MEDS: Chlorhexidine Rinse 15 ML MOUTHWASH MM SCH ×2 (08:25→19:52)
[2018-01-03] MEDS: Pantoprazole 40 MG VIAL IVP SCH (08:25)
[2018-01-03] MEDS: Potassium Chloride Elixir 20 MEQ/15 ML UDC GTUBE SCH ×3 (08:55→19:53)
[2018-01-03] MEDS: Losartan/HCTZ 50-12.5 TABLET PO SCH (09:00)
[2018-01-03] MEDS ORDERED: *HR* Methotrexate 2.5 MG TABLET PO SCH ×2 (09:00)
--- NOTE | 2018-01-03 15:53 | Electrocardiograph Report ---
[address] [place], [place] [address] Test Date: 2017-12-31 Pat Name: Lilly Jhaveri Department: 102 Room: [facility] Gender: F Gamer: Akiko : 1945 Requested By: Annamarie Ying Order Number: [id number] Reading MD: Allan Velazco Measurements Intervals [place] Rate: 75 P: 75 OR: 173 QRS: -9 QRSD: 88 T: 78 QT: 385 QTc: 414 Interpretive Statements SINUS RHYTHM ANTEROSEPTAL MYOCARDIAL INFARCTION [40+ ms Q WAVE IN V1-V4], OF INDETERMINATE AGE Electronically Signed On 01-03-2018 15:51:31 EDT by Allan Velazco
[2018-01-03] MEDS: amLODIPine 5 MG TABLET PO SCH (16:05)
[2018-01-03] MEDS: Lactulose Oral Soln 20 GM/30 ML UDC PO SCH (19:52)
[2018-01-04] MEDS: Ipratropium/Albuterol Neb 3 ML IH SCH ×5 (03:22→20:19)
[2018-01-04 04:11] LABS: Hematocrit 29.9 % (35.3-44.9); Hemoglobin 9.6 g/dL (11.5-15.4); Immature Granulocytes % 0.5 % (0-4); Lymphocytes # 0.3 K/mcL (0.6-4.6); Lymphocytes % 4.5 %; Mean Corpuscular HGB Conc 32.1 g/dL (31.6-35.5); Mean Corpuscular Hemoglobin 29.9 pg (28.0-33.3); Mean Corpuscular Volume 93.1 fL (83.0-100.0); Mean Platelet Volume 10.5 fL (9.4-12.4); Monocytes # 0.3 K/mcL (0.0-1.3); Monocytes % 5.5 %; Neutrophils # 5.6 K/mcL (1.6-8.9); Nucleated Red Blood Cells 0.3 /100 WBC (0); Platelet Count 148 K/mcL (140-400); Red Blood Count 3.21 M/mcL (3.82-4.97); Red Cell Distribution Width 14.2 % (11.5-14.5); Segmented Neutrophils % 89.5 %
[2018-01-04 04:29] LABS: Alanine Aminotransferase 5 Units/L (7-52); Albumin 2.9 g/dL (3.5-5.7); Albumin/Globulin Ratio 1.3 (1.1-2.2); Alkaline Phosphatase 42 Units/L (34-104); Aspartate Amino Transferase 14 Units/L (13-39); BUN/Creatinine Ratio 59 (6-26); Bilirubin,Total 0.3 mg/dL (0.3-1.0); Blood Urea Nitrogen 41 mg/dL (8-23); Calcium 8.4 mg/dL (8.6-10.3); Carbon Dioxide 33 mEq/L (23-29); Chloride 103 mEq/L (98-107); Globulin 2.2 g/dL (2.4-3.5); Glucose 210 mg/dL (70-105); Osmolality,Calculated 310 (280-300); Potassium 3.8 mEq/L (3.5-5.1); Sodium 142 mEq/L (136-145); Total Protein 5.1 g/dL (6.4-8.9); eGFR For African Americans > 60 (> 60); eGFR For Non-African Americans > 60 (> 60)
[2018-01-04 05:07] LABS: ABG Base Excess 14 mEq/L (-2 to 3); ABG HCO3 37 mEq/L (21-27); ABG Oxygen Saturation 99 % (95-98); ABG PCO2 42 mmHg (35-45); ABG PH 7.55 pH Units (7.32-7.45); ABG PO2 110 mmHg (85-104); ABG TCO2 39 mEq/L (20-26); Blood Gas Modality VC; Blood Gas PEEP 5 cm H2O; Blood Gas Respiration Rate 12; Blood Gas VT 500 cc
[2018-01-04] MEDS: Lacri-Lube 3.5 GM TUBE BOTH EYES SCH (05:17)
[2018-01-04] MEDS: Potassium Chloride Elixir 20 MEQ/15 ML UDC GTUBE SCH ×3 (08:14→21:29)
[2018-01-04] MEDS: lamoTRIgine 100 MG TABLET PO SCH (08:15)
[2018-01-04] MEDS: Losartan/HCTZ 50-12.5 TABLET PO SCH (08:15)
[2018-01-04] MEDS: Gabapentin 300 MG CAPSULE PO SCH ×2 (08:15→21:29)
[2018-01-04] MEDS: Aspirin 325 MG TABLET PO SCH (08:15)
[2018-01-04] MEDS: Lactulose Oral Soln 20 GM/30 ML UDC PO SCH ×2 (08:15→21:29)
[2018-01-04] MEDS: Folic Acid 1 MG TABLET PO SCH (08:16)
[2018-01-04] MEDS: Nicotine 14 MG PATCH.TD24 TD SCH (08:16)
[2018-01-04] MEDS: amLODIPine 5 MG TABLET PO SCH (08:16)
[2018-01-04] MEDS: Chlorhexidine Rinse 15 ML MOUTHWASH MM SCH (08:16)
[2018-01-04] MEDS: Pantoprazole 40 MG VIAL IVP SCH (08:17)
[2018-01-04] MEDS: MethylPREDNISolone 40 MG/ML VIAL IVP SCH ×2 (08:17→17:25)
[2018-01-04] MEDS: Insulin LISPRO 300 UNITS/3 ML VIAL SQ SCH ×3 (08:18→16:26)
[2018-01-04] MEDS: *HR* Heparin 5,000 UNIT/ML VIAL SQ SCH ×3 (08:18→23:11)
[2018-01-04] MEDS ORDERED: Levofloxacin 750 MG/150 ML 750 MG/150 ML BAG IVPB SCH (09:00)
--- NOTE | 2018-01-04 10:02 | Pulmonology Progress Note ---
<TyrelcamiloLiam yoon - Last Filed: 01/04/18 14:42> Date of Encounter: 01/04/18 Time of Encounter: 08:35 Assessment and Plan (1) Acute respiratory failure with hypoxia and hypercapnia Current Visit: Yes Status: Acute - Acute on chronic respiratory failure secondary to likely COPD exacerbation - ABG on admission showed a respiratory acidosis with a pH of 7.14 and a CO2 of 134 - This did require intubation on 01/01, successfully extubated to BiPAP this morning - Most recent ABG showing a pH of 7.55 with CO2 improved to 42 - Chest x-ray showed mild edema superimposed on likely COPD, repeat chest x-ray on 01/04 showed COPD with possible edema Plan - Continue BiPAP support as necessary - Resume home meds once passes swallow evaluation - Coninute Klonopin for anxiety - Continue Solu-Medrol 40 mg Will decrease to every 24 hours - Continue breathing treatments, Levaquin day 3 (2) Acute metabolic encephalopathy Current Visit: Yes Status: Acute -Resolved , alert and oriented this morning on exam - Secondary to hypercapnia secondary to COPD exacerbation as above - We will continue to treat the underlying illness - Continue to monitor (3) Acute exacerbation of chronic obstructive airways disease Current Visit: Yes Status: Acute As above for respiratory failure (4) Respiratory acidosis Current Visit: Yes Status: Resolved Resolved Most recent pH on ABG of 7.55 Still requiring ventilator support as above (5) Diabetes mellitus Current Visit: Yes Status: Chronic - History of type 2 diabetes with peripheral neuropathy - Most recent blood sugar of 326 - A1c in August 2017 of 5.8% - Continue sliding scale insulin - Rapid increase in blood sugars possibly secondary to steroids and stress - We will monitor for additional day and decrease steroids Qualifiers: Diabetes mellitus type: type 2 Diabetes mellitus fdc insulin use: without fdc use Diabetes mellitus complication status: with hyperglycemia Qualified Code(s): E11.65 - Type 2 diabetes mellitus with hyperglycemia (6) Hypertension Current Visit: Yes Status: Chronic - Most recent BP of 133/62 - Continue home medications Qualifiers: Hypertension type: essential hypertension Qualified Code(s): I10 - Essential (primary) hypertension (7) Hypothyroidism Current Visit: Yes Status: Chronic Continue Synthroid when able to take by mouth meds Qualifiers: Hypothyroidism type: unspecified Qualified Code(s): E03.9 - Hypothyroidism , unspecified (8) DOMINIK (acute kidney injury) Current Visit: Yes Status: Resolved - Resolved - Most recent creatinine this morning was 0.70 - Baseline creatinine appears to be around 0.8 - History of stage III CKD per chart review - Possibly secondary to medication effect Plan - Continue to monitor with daily labs - Avoid nephrotoxic medications - We will hold methotrexate for rheumatoid arthritis (9) DVT prophylaxis Current Visit: Yes Status: Acute Heparin 5000 units every 8 hours Subjective Principal diagnosis: Acute on chronic respiratory failure Interval history: Patient seen and examined at bedside this AM. She was successfully extubated to BiPAP this morning. She states she is no longer feeling shortness of breath. She is having a scratchy throat but otherwise has no complaints. She is wondering when she will be able to eat and drink. No overnight events Objective PUL Vital signs: Last Vital Signs Temp 99.1 F 01/04/18 07:25 Pulse 107 01/04/18 08:45 Resp 28 01/04/18 08:45 BP 157/76 01/04/18 08:45 Pulse Ox 97 01/04/18 08:45 Gen.: Vitals noted. No acute distress. AAOx3. BiPAP in place, resting comfortably HEENT: PERRL/EOMI, oropharynx clear, Normocephalic, atraumatic, MMM Cardiac: RRR, no murmur, +S1/S2 Pulmonary: Mild wheezes appreciated diffusely, otherwise clear to auscultation, equal chest expansion Abdomen: soft, nontender, BS noted, no guarding, no rebound. MSK: ROM intact, no joint swelling noted Extremities: no BLE edema, nontender calf, no cyanosis or clubbing Neuro: A&Ox3, moves all extremities, no focal deficits, answers questions appropriately, responds to verbal and tactile stimuli Psych: Appropriate mood and behavior Ventilator Settings Ventilator Settings: Ventilator Settings, Last 8 Hours Ventilator Mode VC+ Ventilator Mode VC+ Ventilator Mode VC+ Ventilator Mode VC+ Ventilator Mode VC+ Ventilator Tidal Volume 500 Setting Ventilator Tidal Volume 500 Setting Ventilator Tidal Volume 500 Setting Ventilator Tidal Volume 500 Setting Ventilator Tidal Volume 500 Setting Ventilator Tidal Volume 500 Setting Ventilator Tidal Volume 500 Setting Ventilator Tidal Volume 500 Setting Ventilator Respiratory Rate 12 Setting Ventilator Respiratory Rate 12 Setting Ventilator Respiratory Rate 12 Setting Ventilator Respiratory Rate 12 Setting Ventilator Respiratory Rate 12 Setting Ventilator Respiratory Rate 12 Setting Ventilator Respiratory Rate 12 Setting Ventilator Respiratory Rate 12 Setting Actual Respiratory Rate 22 Actual Respiratory Rate 22 Actual Respiratory Rate 22 Actual Respiratory Rate 12 Actual Respiratory Rate 12 Actual Respiratory Rate 12 Positive End Expiratory 5 Pressure Positive End Expiratory 5 Pressure Positive End Expiratory 5 Pressure Positive End Expiratory 5 Pressure Positive End Expiratory 5 Pressure Positive End Expiratory 5 Pressure Positive End Expiratory 5 Pressure Positive End Expiratory 5 Pressure Peak Inspiratory Airway 23 Pressure Peak Inspiratory Airway 24 Pressure Peak Inspiratory Airway 24 Pressure Peak Inspiratory Airway 22 Pressure Peak Inspiratory Airway 23 Pressure Peak Inspiratory Airway 23 Pressure Peak Inspiratory Airway 23 Pressure Results - Laboratory Findings CBC and BMP: 01/04/18 04:00 01/04/18 04:00 ABG ABG pH 7.55 pH Units (7.32-7.45) H 01/04/18 05:02 ABG pCO2 42 mmHg (35-45) 01/04/18 05:02 ABG pO2 110 mmHg (85-104) H 01/04/18 05:02 ABG O2 Saturation 99 % (95-98) H 01/04/18 05:02 PT/INR, D-dimer PT 11.3 Seconds (9.4-12.1) 01/01/18 05:44 Abnormal lab findings: Abnormal lab results RBC 3.21 M/mcL (3.82-4.97) L 01/04/18 04:00 Hgb 9.6 g/dL (11.5-15.4) L 01/04/18 04:00 Hct 29.9 % (35.3-44.9) L 01/04/18 04:00 Lymphocytes # 0.3 K/mcL (0.6-4.6) L 01/04/18 04:00 Nucleated RBCs/100 WBC 0.3 /100 WBC (0) H 01/04/18 04:00 ABG pH 7.55 pH Units (7.32-7.45) H 01/04/18 05:02 ABG pO2 110 mmHg (85-104) H 01/04/18 05:02 ABG HCO3 37 mEq/L (21-27) H 01/04/18 05:02 ABG Total CO2 39 mEq/L (20-26) H 01/04/18 05:02 ABG O2 Saturation 99 % (95-98) H 01/04/18 05:02 ABG Base Excess 14 mEq/L (-2 to 3) H 01/04/18 05:02 VBG pH 7.30 pH Units (7.32-7.42) L 12/31/17 06:04 VBG pCO2 78 mmHg (41-51) H* 12/31/17 06:04 VBG pO2 151 mmHg (25-50) H 12/31/17 06:04 VBG HCO3 38 mEq/L (21-27) H 12/31/17 06:04 Carbon Dioxide 33 mEq/L (23-29) H 01/04/18 04:00 BUN 41 mg/dL (8-23) H 01/04/18 04:00 BUN/Creatinine Ratio 59 (6-26) H 01/04/18 04:00 Glucose 210 mg/dL (70-105) H 01/04/18 04:00 POC Glucose 326 mg/dL (70-99) H 01/04/18 07:24 Calculated Osmolality 310 (280-300) H 01/04/18 04:00 Calcium 8.4 mg/dL (8.6-10.3) L 01/04/18 04:00 ALT 5 Units/L (7-52) L 01/04/18 04:00 B-Natriuretic Peptide 500 pg/mL (Less than 100) H 01/01/18 05:44 Serum Total Protein 5.1 g/dL (6.4-8.9) L 01/04/18 04:00 Albumin 2.9 g/dL (3.5-5.7) L 01/04/18 04:00 Globulin 2.2 g/dL (2.4-3.5) L 01/04/18 04:00 - Clinical Findings Intake & Output: Intake & Output 01/03/18 01/04/18 01/04/18 23:59 07:59 15:59 Intake Total 100 / 100 463 / 463 Output Total 550 / 550 300 / 300 100 / 100 Balance -450 / -450 163 / 163 -100 / -100 Consult Discharge Plan - Plan Referrals: Jose G Toure MD [Primary Care Provider] - <Felipe Putnam - Last Filed: 01/04/18 16:01> Date of Encounter: 01/04/18 Objective PUL Vital signs: Last Vital Signs Temp 99.1 F 01/04/18 07:25 Pulse 107 01/04/18 08:45 Resp 28 01/04/18 08:45 BP 157/76 01/04/18 08:45 Pulse Ox 97 01/04/18 08:45 Ventilator Settings Ventilator Settings: Ventilator Settings, Last 8 Hours Ventilator Mode VC+ Ventilator Mode VC+ Ventilator Mode VC+ Ventilator Mode VC+ Ventilator Mode VC+ Ventilator Tidal Volume 500 Setting Ventilator Tidal Volume 500 Setting Ventilator Tidal Volume 500 Setting Ventilator Tidal Volume 500 Setting Ventilator Tidal Volume 500 Setting Ventilator Tidal Volume 500 Setting Ventilator Tidal Volume 500 Setting Ventilator Tidal Volume 500 Setting Ventilator Respiratory Rate 12 Setting Ventilator Respiratory Rate 12 Setting Ventilator Respiratory Rate 12 Setting Ventilator Respiratory Rate 12 Setting Ventilator Respiratory Rate 12 Setting Ventilator Respiratory Rate 12 Setting Ventilator Respiratory Rate 12 Setting Ventilator Respiratory Rate 12 Setting Actual Respiratory Rate 22 Actual Respiratory Rate 22 Actual Respiratory Rate 22 Actual Respiratory Rate 12 Actual Respiratory Rate 12 Actual Respiratory Rate 12 Positive End Expiratory 5 Pressure Positive End Expiratory 5 Pressure Positive End Expiratory 5 Pressure Positive End Expiratory 5 Pressure Positive End Expiratory 5 Pressure Positive End Expiratory 5 Pressure Positive End Expiratory 5 Pressure Positive End Expiratory 5 Pressure Peak Inspiratory Airway 23 Pressure Peak Inspiratory Airway 24 Pressure Peak Inspiratory Airway 24 Pressure Peak Inspiratory Airway 22 Pressure Peak Inspiratory Airway 23 Pressure Peak Inspiratory Airway 23 Pressure Peak Inspiratory Airway 23 Pressure Results - Laboratory Findings CBC and BMP: 01/04/18 04:00 01/04/18 04:00 ABG ABG pH 7.55 pH Units (7.32-7.45) H 01/04/18 05:02 ABG pCO2 42 mmHg (35-45) 01/04/18 05:02 ABG pO2 110 mmHg (85-104) H 01/04/18 05:02 ABG O2 Saturation 99 % (95-98) H 01/04/18 05:02 PT/INR, D-dimer PT 11.3 Seconds (9.4-12.1) 01/01/18 05:44 Abnormal lab findings: Abnormal lab results RBC 3.21 M/mcL (3.82-4.97) L 01/04/18 04:00 Hgb 9.6 g/dL (11.5-15.4) L 01/04/18 04:00 Hct 29.9 % (35.3-44.9) L 01/04/18 04:00 Lymphocytes # 0.3 K/mcL (0.6-4.6) L 01/04/18 04:00 Nucleated RBCs/100 WBC 0.3 /100 WBC (0) H 01/04/18 04:00 ABG pH 7.55 pH Units (7.32-7.45) H 01/04/18 05:02 ABG pO2 110 mmHg (85-104) H 01/04/18 05:02 ABG HCO3 37 mEq/L (21-27) H 01/04/18 05:02 ABG Total CO2 39 mEq/L (20-26) H 01/04/18 05:02 ABG O2 Saturation 99 % (95-98) H 01/04/18 05:02 ABG Base Excess 14 mEq/L (-2 to 3) H 01/04/18 05:02 VBG pH 7.30 pH Units (7.32-7.42) L 12/31/17 06:04 VBG pCO2 78 mmHg (41-51) H* 12/31/17 06:04 VBG pO2 151 mmHg (25-50) H 12/31/17 06:04 VBG HCO3 38 mEq/L (21-27) H 12/31/17 06:04 Carbon Dioxide 33 mEq/L (23-29) H 01/04/18 04:00 BUN 41 mg/dL (8-23) H 01/04/18 04:00 BUN/Creatinine Ratio 59 (6-26) H 01/04/18 04:00 Glucose 210 mg/dL (70-105) H 01/04/18 04:00 POC Glucose 326 mg/dL (70-99) H 01/04/18 07:24 Calculated Osmolality 310 (280-300) H 01/04/18 04:00 Calcium 8.4 mg/dL (8.6-10.3) L 01/04/18 04:00 ALT 5 Units/L (7-52) L 01/04/18 04:00 B-Natriuretic Peptide 500 pg/mL (Less than 100) H 01/01/18 05:44 Serum Total Protein 5.1 g/dL (6.4-8.9) L 01/04/18 04:00 Albumin 2.9 g/dL (3.5-5.7) L 01/04/18 04:00 Globulin 2.2 g/dL (2.4-3.5) L 01/04/18 04:00 - Clinical Findings Intake & Output: Intake & Output 01/03/18 01/04/18 01/04/18 23:59 07:59 15:59 Intake Total 100 / 100 463 / 463 Output Total 550 / 550 300 / 300 100 / 100 Balance -450 / -450 163 / 163 -100 / -100 - Attending Attestation I examined this patient and my medical decision-making was reviewed with the Resident Physician. I agree with the documented findings, disposition and treatment plan as described except to the extent set forth below. Patient seen and examined. Labs, radiology, chart personally reviewed. 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 Cardiovascular: stable GI: Nutrition per dietary and GI prophylaxis per routine Heme: DVT prophylaxis per routine Renal; urine out put and renal funtion reviewed Endorcine: blood glucose is monitored Lines: all lines checked and no evidence of infections Skin: skin care to prevent pressure ulcers per nursing routine care
[2018-01-04] MEDS: Cholecalciferol (D-3) 1,000 UNIT TABLET PO SCH (17:25)
[2018-01-04] MEDS ORDERED: Ketorolac 15 MG/ML VIAL IVP ONE (20:55)
[2018-01-04] MEDS: clonazePAM 1 MG TABLET PO PRN (23:10)
[2018-01-05] MEDS: Ipratropium/Albuterol Neb 3 ML IH SCH ×7 (00:10→23:38)
[2018-01-05 04:20] LABS: Basophils % 0.1 %; Hematocrit 36.8 % (35.3-44.9); Hemoglobin 11.4 g/dL (11.5-15.4); Immature Granulocytes % 0.8 % (0-4); Immature Platelets 2.7 % (1.1-6.1); Lymphocytes # 0.5 K/mcL (0.6-4.6); Lymphocytes % 4.7 %; Mean Corpuscular Hemoglobin 29.4 pg (28.0-33.3); Mean Corpuscular Volume 94.8 fL (83.0-100.0); Mean Platelet Volume 10.2 fL (9.4-12.4); Monocytes # 0.6 K/mcL (0.0-1.3); Monocytes % 5.1 %; Platelet Count 228 K/mcL (140-400); Red Blood Count 3.88 M/mcL (3.82-4.97); Red Cell Distribution Width 14.6 % (11.5-14.5); Segmented Neutrophils % 89.3 %
[2018-01-05 06:07] LABS: Neutrophils # 9.6 K/mcL (1.6-8.9)
[2018-01-05] MEDS: MethylPREDNISolone 40 MG/ML VIAL IVP SCH (06:15)
[2018-01-05 06:22] LABS: BUN/Creatinine Ratio 69 (6-26); Blood Urea Nitrogen 49 mg/dL (8-23); Calcium 9.5 mg/dL (8.6-10.3); Carbon Dioxide 38 mEq/L (23-29); Chloride 100 mEq/L (98-107); Glucose 197 mg/dL (70-105); Osmolality,Calculated 314 (280-300); Potassium 4.7 mEq/L (3.5-5.1); Sodium 143 mEq/L (136-145); eGFR For African Americans > 60 (> 60); eGFR For Non-African Americans > 60 (> 60)
--- NOTE | 2018-01-05 07:51 | Pulmonology Progress Note ---
<CachorroLiam yoon - Last Filed: 01/05/18 10:45> Date of Encounter: 01/05/18 Time of Encounter: 10:47 Assessment and Plan (1) Acute respiratory failure with hypoxia and hypercapnia Current Visit: Yes Status: Acute - Acute on chronic respiratory failure secondary to likely COPD exacerbation - ABG on admission showed a respiratory acidosis with a pH of 7.14 and a CO2 of 134 - This did require intubation on 01/01, successfully extubated to BiPAP yesterday - Has been tolerating intermittent BiPAP with brakes on 10 L of oxygen mask - Chest x-ray showed mild edema superimposed on likely COPD, repeat chest x-ray on 01/04 showed COPD with possible edema Plan - Continue BiPAP support as necessary - Coninute Klonopin for anxiety - Continue Solu-Medrol 40 mg Will decrease to every 24 hours - Continue breathing treatments, Levaquin day 5, complete course after today - Continue to monitor for 1 additional day with potential transfer out of ICU tomorrow (2) Acute metabolic encephalopathy Current Visit: Yes Status: Acute -Resolved , alert and oriented this morning on exam - Secondary to hypercapnia secondary to COPD exacerbation as above - We will continue to treat the underlying illness - Continue to monitor (3) Acute exacerbation of chronic obstructive airways disease Current Visit: Yes Status: Acute As above for respiratory failure (4) Respiratory acidosis Current Visit: Yes Status: Resolved Resolved Most recent pH on ABG of 7.55 Still requiring ventilator support as above (5) Diabetes mellitus Current Visit: Yes Status: Chronic - History of type 2 diabetes with peripheral neuropathy - Most recent blood sugar of 197 - A1c in August 2017 of 5.8% - Continue sliding scale insulin - Rapid increase in blood sugars possibly secondary to steroids and stress, improved from yesterday - We will monitor for additional day and decrease steroids Qualifiers: Diabetes mellitus type: type 2 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 care use Diabetes mellitus complication status: with hyperglycemia Qualified Code(s): E11.65 - Type 2 diabetes mellitus with hyperglycemia (6) Hypertension Current Visit: Yes Status: Chronic - Most recent BP of 159/77 - May be slightly elevated due to anxiety - Continue home medications Qualifiers: Hypertension type: essential hypertension Qualified Code(s): I10 - Essential (primary) hypertension (7) Hypothyroidism Current Visit: Yes Status: Chronic Continue Synthroid when able to take by mouth meds Qualifiers: Hypothyroidism type: unspecified Qualified Code(s): E03.9 - Hypothyroidism , unspecified (8) DOMINIK (acute kidney injury) Current Visit: Yes Status: Resolved - Resolved - Most recent creatinine this morning was 0.71 - Baseline creatinine appears to be around 0.8 - History of stage III CKD per chart review - Possibly secondary to medication effect Plan - Continue to monitor with daily labs - Avoid nephrotoxic medications - We will hold methotrexate for rheumatoid arthritis (9) DVT prophylaxis Current Visit: Yes Status: Acute Heparin 5000 units every 8 hours Subjective Principal diagnosis: Acute on chronic respiratory failure Interval history: Patient seen and examined at bedside this AM. She was successfully extubated to BiPAP this yesterday and is currently tolerating 10 L of oxygen via Oxy mask. No shortness of breath. Passed her swallow evaluation. No overnight events Objective PUL Vital signs: Last Vital Signs Temp 98.0 F 01/05/18 07:36 Pulse 58 01/05/18 06:00 Resp 18 01/05/18 07:47 BP 142/80 01/05/18 07:47 Pulse Ox 98 01/05/18 07:47 Gen.: Vitals noted. No acute distress. AAOx3 HEENT: PERRL/EOMI, oropharynx clear, Normocephalic, atraumatic, MMM Cardiac: RRR, no murmur, +S1/S2 Pulmonary: Minimal wheezes, greatly improved from previous. equal chest expansion Abdomen: soft, nontender, BS noted, no guarding, no rebound. MSK: ROM intact, no joint swelling noted Extremities: no BLE edema, nontender calf, no cyanosis or clubbing Neuro: A&Ox3, moves all extremities, no focal deficits Psych: Appropriate mood and behavior Results - Laboratory Findings CBC and BMP: 01/05/18 03:30 01/05/18 03:30 ABG ABG pH 7.55 pH Units (7.32-7.45) H 01/04/18 05:02 ABG pCO2 42 mmHg (35-45) 01/04/18 05:02 ABG pO2 110 mmHg (85-104) H 01/04/18 05:02 ABG O2 Saturation 99 % (95-98) H 01/04/18 05:02 PT/INR, D-dimer PT 11.3 Seconds (9.4-12.1) 01/01/18 05:44 Abnormal lab findings: Abnormal lab results Hgb 11.4 g/dL (11.5-15.4) L D 01/05/18 03:30 MCHC 31.0 g/dL (31.6-35.5) L 01/05/18 03:30 RDW 14.6 % (11.5-14.5) H 01/05/18 03:30 Neutrophils # 9.6 K/mcL (1.6-8.9) H 01/05/18 03:30 Lymphocytes # 0.5 K/mcL (0.6-4.6) L 01/05/18 03:30 Nucleated RBCs/100 WBC 0.3 /100 WBC (0) H 01/04/18 04:00 ABG pH 7.55 pH Units (7.32-7.45) H 01/04/18 05:02 ABG pO2 110 mmHg (85-104) H 01/04/18 05:02 ABG HCO3 37 mEq/L (21-27) H 01/04/18 05:02 ABG Total CO2 39 mEq/L (20-26) H 01/04/18 05:02 ABG O2 Saturation 99 % (95-98) H 01/04/18 05:02 ABG Base Excess 14 mEq/L (-2 to 3) H 01/04/18 05:02 VBG pH 7.30 pH Units (7.32-7.42) L 12/31/17 06:04 VBG pCO2 78 mmHg (41-51) H* 12/31/17 06:04 VBG pO2 151 mmHg (25-50) H 12/31/17 06:04 VBG HCO3 38 mEq/L (21-27) H 12/31/17 06:04 Carbon Dioxide 38 mEq/L (23-29) H 01/05/18 03:30 BUN 49 mg/dL (8-23) H 01/05/18 03:30 BUN/Creatinine Ratio 69 (6-26) H 01/05/18 03:30 Glucose 197 mg/dL (70-105) H 01/05/18 03:30 POC Glucose 220 mg/dL (70-99) H 01/04/18 23:38 Calculated Osmolality 314 (280-300) H 01/05/18 03:30 ALT 5 Units/L (7-52) L 01/04/18 04:00 B-Natriuretic Peptide 500 pg/mL (Less than 100) H 01/01/18 05:44 Serum Total Protein 5.1 g/dL (6.4-8.9) L 01/04/18 04:00 Albumin 2.9 g/dL (3.5-5.7) L 01/04/18 04:00 Globulin 2.2 g/dL (2.4-3.5) L 01/04/18 04:00 - Clinical Findings Intake & Output: Intake & Output 01/04/18 01/04/18 01/05/18 15:59 23:59 07:59 Intake Total 50 / 50 Output Total 350 / 350 300 / 300 525 / 525 Balance -300 / -300 -300 / -300 -525 / -525 Weight 75.4 kg Consult Discharge Plan - Plan Referrals: Jose G Toure MD [Primary Care Provider] - <Felipe Putnam - Last Filed: 01/06/18 06:33> Date of Encounter: 01/06/18 Objective PUL Vital signs: Last Vital Signs Temp 96.7 F L 01/06/18 03:49 Pulse 59 01/06/18 06:00 Resp 16 01/06/18 06:00 BP 130/59 01/06/18 06:00 Pulse Ox 100 01/06/18 06:00 Results - Laboratory Findings CBC and BMP: 01/06/18 03:25 01/06/18 03:25 ABG ABG pH 7.55 pH Units (7.32-7.45) H 01/04/18 05:02 ABG pCO2 42 mmHg (35-45) 01/04/18 05:02 ABG pO2 110 mmHg (85-104) H 01/04/18 05:02 ABG O2 Saturation 99 % (95-98) H 01/04/18 05:02 PT/INR, D-dimer PT 11.3 Seconds (9.4-12.1) 01/01/18 05:44 Abnormal lab findings: Abnormal lab results RBC 3.64 M/mcL (3.82-4.97) L 01/06/18 03:25 Hgb 11.1 g/dL (11.5-15.4) L 01/06/18 03:25 Hct 35.1 % (35.3-44.9) L 01/06/18 03:25 Nucleated RBCs/100 WBC 0.3 /100 WBC (0) H 01/04/18 04:00 ABG pH 7.55 pH Units (7.32-7.45) H 01/04/18 05:02 ABG pO2 110 mmHg (85-104) H 01/04/18 05:02 ABG HCO3 37 mEq/L (21-27) H 01/04/18 05:02 ABG Total CO2 39 mEq/L (20-26) H 01/04/18 05:02 ABG O2 Saturation 99 % (95-98) H 01/04/18 05:02 ABG Base Excess 14 mEq/L (-2 to 3) H 01/04/18 05:02 VBG pH 7.30 pH Units (7.32-7.42) L 12/31/17 06:04 VBG pCO2 78 mmHg (41-51) H* 12/31/17 06:04 VBG pO2 151 mmHg (25-50) H 12/31/17 06:04 VBG HCO3 38 mEq/L (21-27) H 12/31/17 06:04 Carbon Dioxide 42 mEq/L (23-29) H* 01/06/18 03:25 BUN 50 mg/dL (8-23) H 01/06/18 03:25 BUN/Creatinine Ratio 57 (6-26) H 01/06/18 03:25 Glucose 120 mg/dL (70-105) H 01/06/18 03:25 POC Glucose 150 mg/dL (70-99) H 01/05/18 20:02 Calculated Osmolality 313 (280-300) H 01/06/18 03:25 ALT 5 Units/L (7-52) L 01/04/18 04:00 B-Natriuretic Peptide 500 pg/mL (Less than 100) H 01/01/18 05:44 Serum Total Protein 5.1 g/dL (6.4-8.9) L 01/04/18 04:00 Albumin 2.9 g/dL (3.5-5.7) L 01/04/18 04:00 Globulin 2.2 g/dL (2.4-3.5) L 01/04/18 04:00 - Microbiology Findings Microbiology Findings: Microbiology, Last 48 Hours 12/31/17 08:56 Blood Culture - Final Peripheral Venipuncture No growth. - Clinical Findings Intake & Output: Intake & Output 01/05/18 01/05/18 01/06/18 15:59 23:59 07:59 Intake Total 150 / 150 Output Total 550 / 550 200 / 200 100 / 100 Balance -550 / -550 -50 / -50 -100 / -100 Weight 76.2 kg - Attending Attestation this was done in 01/06/2018, but patient was seen and examined with the resident and case discussed in MDR on 01/05/2018. I examined this patient and my medical decision-making was reviewed with the Resident Physician. I agree with the documented findings, disposition and treatment plan as described except to the extent set forth below. Patient seen and examined. Labs, radiology, chart personally reviewed. 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 Pulmonary: Acceptable oxygenation and ventilation and still requiring NIV. Cardiovascular: stable GI: Nutrition per dietary and GI prophylaxis per routine Heme: DVT prophylaxis per routine Renal; urine out put and renal funtion reviewed Endorcine: blood glucose is monitored Lines: all lines checked and no evidence of infections Skin: skin care to prevent pressure ulcers per nursing routine care Continue monitoring can ICU for often another day or 2.
[2018-01-05] MEDS: amLODIPine 5 MG TABLET PO SCH (09:00)
[2018-01-05] MEDS ORDERED: Levofloxacin 750 MG/150 ML 750 MG/150 ML BAG IVPB SCH (09:00)
[2018-01-05] MEDS: Aspirin 325 MG TABLET PO SCH (09:00)
[2018-01-05] MEDS: *HR* Heparin 5,000 UNIT/ML VIAL SQ SCH ×3 (09:01→23:17)
[2018-01-05] MEDS: Folic Acid 1 MG TABLET PO SCH (09:01)
[2018-01-05] MEDS: Lactulose Oral Soln 20 GM/30 ML UDC PO SCH ×2 (09:01→20:20)
[2018-01-05] MEDS: Cholecalciferol (D-3) 1,000 UNIT TABLET PO SCH (09:01)
[2018-01-05] MEDS: Potassium Chloride Elixir 20 MEQ/15 ML UDC GTUBE SCH ×3 (09:01→20:17)
[2018-01-05] MEDS: lamoTRIgine 100 MG TABLET PO SCH (09:01)
[2018-01-05] MEDS: Nicotine 14 MG PATCH.TD24 TD SCH (09:02)
[2018-01-05] MEDS: Insulin LISPRO 300 UNITS/3 ML VIAL SQ SCH ×3 (09:03→16:57)
[2018-01-05] MEDS: Gabapentin 300 MG CAPSULE PO SCH ×2 (09:20→20:17)
[2018-01-05] MEDS ORDERED: *HR* HYDROcodone/Acet 5/325 mg TABLET PO PRN (17:10)
[2018-01-05] MEDS: clonazePAM 1 MG TABLET PO PRN (20:20)
[2018-01-06 03:44] LABS: Basophils % 0.2 %; Eosinophils % 0.2 %; Hematocrit 35.1 % (35.3-44.9); Hemoglobin 11.1 g/dL (11.5-15.4); Immature Granulocytes % 0.9 % (0-4); Lymphocytes # 0.7 K/mcL (0.6-4.6); Mean Corpuscular HGB Conc 31.6 g/dL (31.6-35.5); Mean Corpuscular Hemoglobin 30.5 pg (28.0-33.3); Mean Corpuscular Volume 96.4 fL (83.0-100.0); Mean Platelet Volume 9.9 fL (9.4-12.4); Monocytes # 0.7 K/mcL (0.0-1.3); Monocytes % 10.1 %; Neutrophils # 5.2 K/mcL (1.6-8.9); Platelet Count 196 K/mcL (140-400); Red Blood Count 3.64 M/mcL (3.82-4.97); Red Cell Distribution Width 14.2 % (11.5-14.5); Segmented Neutrophils % 77.6 %
[2018-01-06] MEDS: Ipratropium/Albuterol Neb 3 ML IH SCH ×6 (03:45→22:58)
[2018-01-06 04:09] LABS: BUN/Creatinine Ratio 57 (6-26); Blood Urea Nitrogen 50 mg/dL (8-23); Calcium 9.4 mg/dL (8.6-10.3); Carbon Dioxide 42 mEq/L (23-29); Chloride 102 mEq/L (98-107); Glucose 120 mg/dL (70-105); Osmolality,Calculated 313 (280-300); Potassium 4.4 mEq/L (3.5-5.1); Sodium 144 mEq/L (136-145); eGFR For African Americans > 60 (> 60); eGFR For Non-African Americans > 60 (> 60)
--- NOTE | 2018-01-06 07:40 | Pulmonology Progress Note ---
<IndyFelipe M - Last Filed: 01/06/18 13:00> Date of Encounter: 01/06/18 Objective PUL Vital signs: Last Vital Signs Temp 97.8 F 01/06/18 07:53 Pulse 66 01/06/18 08:00 Resp 24 01/06/18 08:00 BP 117/58 01/06/18 08:00 Pulse Ox 100 01/06/18 08:00 Results - Laboratory Findings CBC and BMP: 01/06/18 03:25 01/06/18 03:25 ABG ABG pH 7.55 pH Units (7.32-7.45) H 01/04/18 05:02 ABG pCO2 42 mmHg (35-45) 01/04/18 05:02 ABG pO2 110 mmHg (85-104) H 01/04/18 05:02 ABG O2 Saturation 99 % (95-98) H 01/04/18 05:02 PT/INR, D-dimer PT 11.3 Seconds (9.4-12.1) 01/01/18 05:44 Abnormal lab findings: Abnormal lab results RBC 3.64 M/mcL (3.82-4.97) L 01/06/18 03:25 Hgb 11.1 g/dL (11.5-15.4) L 01/06/18 03:25 Hct 35.1 % (35.3-44.9) L 01/06/18 03:25 Nucleated RBCs/100 WBC 0.3 /100 WBC (0) H 01/04/18 04:00 ABG pH 7.55 pH Units (7.32-7.45) H 01/04/18 05:02 ABG pO2 110 mmHg (85-104) H 01/04/18 05:02 ABG HCO3 37 mEq/L (21-27) H 01/04/18 05:02 ABG Total CO2 39 mEq/L (20-26) H 01/04/18 05:02 ABG O2 Saturation 99 % (95-98) H 01/04/18 05:02 ABG Base Excess 14 mEq/L (-2 to 3) H 01/04/18 05:02 VBG pH 7.30 pH Units (7.32-7.42) L 12/31/17 06:04 VBG pCO2 78 mmHg (41-51) H* 12/31/17 06:04 VBG pO2 151 mmHg (25-50) H 12/31/17 06:04 VBG HCO3 38 mEq/L (21-27) H 12/31/17 06:04 Carbon Dioxide 42 mEq/L (23-29) H* 01/06/18 03:25 BUN 50 mg/dL (8-23) H 01/06/18 03:25 BUN/Creatinine Ratio 57 (6-26) H 01/06/18 03:25 Glucose 120 mg/dL (70-105) H 01/06/18 03:25 POC Glucose 150 mg/dL (70-99) H 01/05/18 20:02 Calculated Osmolality 313 (280-300) H 01/06/18 03:25 ALT 5 Units/L (7-52) L 01/04/18 04:00 B-Natriuretic Peptide 500 pg/mL (Less than 100) H 01/01/18 05:44 Serum Total Protein 5.1 g/dL (6.4-8.9) L 01/04/18 04:00 Albumin 2.9 g/dL (3.5-5.7) L 01/04/18 04:00 Globulin 2.2 g/dL (2.4-3.5) L 01/04/18 04:00 - Microbiology Findings Microbiology Findings: Microbiology, Last 48 Hours 12/31/17 08:56 Blood Culture - Final Peripheral Venipuncture No growth. - Clinical Findings Intake & Output: Intake & Output 01/05/18 01/06/18 01/06/18 23:59 07:59 15:59 Intake Total 150 / 150 Output Total 200 / 200 100 / 100 Balance -50 / -50 -100 / -100 Weight 76.2 kg Consult Discharge Plan - Plan Referrals: Jose G Toure MD [Primary Care Provider] - - Attending Attestation I examined this patient and my medical decision-making was reviewed with the Resident Physician. I agree with the documented findings, disposition and treatment plan as described except to the extent set forth below. Patient seen and examined. Labs, radiology, chart personally reviewed. Agree with resident's history and physical, assessment, plan with following comments: CONCRETE POURER: Patient follows commands, Pulmonary: Acceptable oxygenation and ventilation continue noninvasive ventilation with bronchodilators Cardiovascular: stable GI: Nutrition per dietary and GI prophylaxis per routine Heme: DVT prophylaxis per routine Renal; urine out put and renal funtion reviewed Endorcine: blood glucose is monitored Lines: all lines checked and no evidence of infections Skin: skin care to prevent pressure ulcers per nursing routine care Patient transferred to the floor she remained hemodynamically stable and can follow-up as outpatient for her COPD <Liam Coleman - Last Filed: 01/06/18 16:46> Date of Encounter: 01/06/18 Time of Encounter: 09:00 Assessment and Plan (1) Acute respiratory failure with hypoxia and hypercapnia Current Visit: Yes Status: Acute - Acute on chronic respiratory failure secondary to likely COPD exacerbation - ABG on admission showed a respiratory acidosis with a pH of 7.14 and a CO2 of 134 - This did require intubation on 01/01, successfully extubated to BiPAP. Tolerating intermittent BiPAP with intermittent oxygen mask - Has been tolerating intermittent BiPAP with breaks on 10 L of oxygen mask - Chest x-ray showed mild edema superimposed on likely COPD, repeat chest x-ray on 01/04 showed COPD with possible edema Plan - Continue BiPAP support as necessary - Coninute Klonopin for anxiety - Discontinue steroids on transfer to medical floor - Continue breathing treatments, Levaquin day 5 (stopped upon transfer) - Stable for transfer to medical floor (2) Acute metabolic encephalopathy Current Visit: Yes Status: Resolved -Resolved , alert and oriented this morning on exam - Secondary to hypercapnia secondary to COPD exacerbation as above - We will continue to treat the underlying illness - Continue to monitor (3) Acute exacerbation of chronic obstructive airways disease Current Visit: Yes Status: Acute As above for respiratory failure (4) Respiratory acidosis Current Visit: Yes Status: Resolved Resolved Most recent pH on ABG of 7.55 Still requiring ventilator support as above (5) Diabetes mellitus Current Visit: Yes Status: Chronic - History of type 2 diabetes with peripheral neuropathy - Most recent blood sugar of 120 - A1c in August 2017 of 5.8% - Continue sliding scale insulin - Rapid increase in blood sugars possibly secondary to steroids and stress, improved from yesterday - We will monitor for additional day and decrease steroids Qualifiers: Diabetes mellitus type: type 2 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: without correction use Diabetes mellitus complication status: with hyperglycemia Qualified Code(s): E11.65 - Type 2 diabetes mellitus with hyperglycemia (6) Hypertension Current Visit: Yes Status: Chronic - Most recent BP of 120/67 - May be slightly elevated due to anxiety - Continue home medications Qualifiers: Hypertension type: essential hypertension Qualified Code(s): I10 - Essential (primary) hypertension (7) Hypothyroidism Current Visit: Yes Status: Chronic Continue Synthroid when able to take by mouth meds Qualifiers: Hypothyroidism type: unspecified Qualified Code(s): E03.9 - Hypothyroidism , unspecified (8) DOMINIK (acute kidney injury) Current Visit: Yes Status: Resolved - Resolved - Most recent creatinine this morning was 0.87 - Baseline creatinine appears to be around 0.8 - History of stage III CKD per chart review - Possibly secondary to medication effect Plan - Continue to monitor with daily labs - Avoid nephrotoxic medications - We will hold methotrexate for rheumatoid arthritis (9) DVT prophylaxis Current Visit: Yes Status: Acute Heparin 5000 units every 8 hours Subjective Principal diagnosis: Acute on chronic respiratory failure Interval history: Patient seen and examined at bedside this AM. She is tolerating her BiPAP well and had intermittent periods of oxygen mask yesterday. She states overall she is feeling better with no complaints of shortness of breath, wheezing, chest pain. No events overnight Objective PUL Vital signs: Last Vital Signs Temp 96.7 F L 01/06/18 03:49 Pulse 60 01/06/18 07:00 Resp 26 01/06/18 07:00 BP 116/56 01/06/18 07:00 Pulse Ox 100 01/06/18 07:00 Gen.: Vitals noted. No acute distress. AAOx3 HEENT: PERRL/EOMI, oropharynx clear, Normocephalic, atraumatic, MMM Cardiac: RRR, no murmur, +S1/S2 Pulmonary: Minimal wheezes, greatly improved from previous. equal chest expansion Abdomen: soft, nontender, BS noted, no guarding, no rebound. MSK: ROM intact, no joint swelling noted Extremities: no BLE edema, nontender calf, no cyanosis or clubbing Neuro: A&Ox3, moves all extremities, no focal deficits Psych: Appropriate mood and behavior Results - Laboratory Findings CBC and BMP: 01/06/18 03:25 01/06/18 03:25 ABG ABG pH 7.55 pH Units (7.32-7.45) H 01/04/18 05:02 ABG pCO2 42 mmHg (35-45) 01/04/18 05:02 ABG pO2 110 mmHg (85-104) H 01/04/18 05:02 ABG O2 Saturation 99 % (95-98) H 01/04/18 05:02 PT/INR, D-dimer PT 11.3 Seconds (9.4-12.1) 01/01/18 05:44 Abnormal lab findings: Abnormal lab results RBC 3.64 M/mcL (3.82-4.97) L 01/06/18 03:25 Hgb 11.1 g/dL (11.5-15.4) L 01/06/18 03:25 Hct 35.1 % (35.3-44.9) L 01/06/18 03:25 Nucleated RBCs/100 WBC 0.3 /100 WBC (0) H 01/04/18 04:00 ABG pH 7.55 pH Units (7.32-7.45) H 01/04/18 05:02 ABG pO2 110 mmHg (85-104) H 01/04/18 05:02 ABG HCO3 37 mEq/L (21-27) H 01/04/18 05:02 ABG Total CO2 39 mEq/L (20-26) H 01/04/18 05:02 ABG O2 Saturation 99 % (95-98) H 01/04/18 05:02 ABG Base Excess 14 mEq/L (-2 to 3) H 01/04/18 05:02 VBG pH 7.30 pH Units (7.32-7.42) L 12/31/17 06:04 VBG pCO2 78 mmHg (41-51) H* 12/31/17 06:04 VBG pO2 151 mmHg (25-50) H 12/31/17 06:04 VBG HCO3 38 mEq/L (21-27) H 12/31/17 06:04 Carbon Dioxide 42 mEq/L (23-29) H* 01/06/18 03:25 BUN 50 mg/dL (8-23) H 01/06/18 03:25 BUN/Creatinine Ratio 57 (6-26) H 01/06/18 03:25 Glucose 120 mg/dL (70-105) H 01/06/18 03:25 POC Glucose 150 mg/dL (70-99) H 01/05/18 20:02 Calculated Osmolality 313 (280-300) H 01/06/18 03:25 ALT 5 Units/L (7-52) L 01/04/18 04:00 B-Natriuretic Peptide 500 pg/mL (Less than 100) H 01/01/18 05:44 Serum Total Protein 5.1 g/dL (6.4-8.9) L 01/04/18 04:00 Albumin 2.9 g/dL (3.5-5.7) L 01/04/18 04:00 Globulin 2.2 g/dL (2.4-3.5) L 01/04/18 04:00 - Microbiology Findings Microbiology Findings: Microbiology, Last 48 Hours 12/31/17 08:56 Blood Culture - Final Peripheral Venipuncture No growth. - Clinical Findings Intake & Output: Intake & Output 01/05/18 01/05/18 01/06/18 15:59 23:59 07:59 Intake Total 150 / 150 Output Total 550 / 550 200 / 200 100 / 100 Balance -550 / -550 -50 / -50 -100 / -100 Weight 76.2 kg
[2018-01-06] MEDS: Insulin LISPRO 300 UNITS/3 ML VIAL SQ SCH ×3 (07:50→17:26)
[2018-01-06] MEDS: Potassium Chloride Elixir 20 MEQ/15 ML UDC GTUBE SCH (07:51)
[2018-01-06] MEDS: Nicotine 14 MG PATCH.TD24 TD SCH (08:02)
[2018-01-06] MEDS: Lactulose Oral Soln 20 GM/30 ML UDC PO SCH ×2 (08:02→21:17)
[2018-01-06] MEDS: Folic Acid 1 MG TABLET PO SCH (08:03)
[2018-01-06] MEDS: Gabapentin 300 MG CAPSULE PO SCH ×3 (08:03→21:17)
[2018-01-06] MEDS: Aspirin 325 MG TABLET PO SCH (08:03)
[2018-01-06] MEDS: Cholecalciferol (D-3) 1,000 UNIT TABLET PO SCH (08:03)
[2018-01-06] MEDS: lamoTRIgine 100 MG TABLET PO SCH (08:04)
[2018-01-06] MEDS: amLODIPine 5 MG TABLET PO SCH (08:04)
[2018-01-06] MEDS: *HR* Heparin 5,000 UNIT/ML VIAL SQ SCH ×2 (08:05→17:27)
[2018-01-06] MEDS ORDERED: MethylPREDNISolone 40 MG/ML VIAL IVP SCH (09:00)
[2018-01-06] MEDS ORDERED: Dextrose Gel 15 GM/37.5 ML TUBE PO PRN ×2 (09:14)
[2018-01-06] MEDS ORDERED: D5% in Water 1,000 ML IVC PRN (09:14)
[2018-01-06] MEDS ORDERED: Naloxone 0.4 MG/ML INJ IVP PRN (09:14)
[2018-01-06] MEDS ORDERED: Acetaminophen 325 MG TABLET PO PRN (09:14)
[2018-01-06] MEDS ORDERED: clonazePAM 1 MG TABLET PO PRN (09:14)
[2018-01-06] MEDS ORDERED: *HR* Dextrose 50 % in Water (Syg) 50 ML SYRINGE IVP PRN (09:14)
[2018-01-06] MEDS: *HR* HYDROcodone/Acet 5/325 mg TABLET PO PRN ×2 (09:39→17:27)
[2018-01-06] MEDS ORDERED: Potassium Chloride Elixir 20 MEQ/15 ML UDC GTUBE SCH (15:00)
[2018-01-07] MEDS: *HR* Heparin 5,000 UNIT/ML VIAL SQ SCH ×3 (00:22→16:32)
[2018-01-07] MEDS: Ipratropium/Albuterol Neb 3 ML IH SCH ×6 (04:28→23:17)
[2018-01-07] MEDS: *HR* HYDROcodone/Acet 5/325 mg TABLET PO PRN ×2 (04:54→21:54)
[2018-01-07 04:56] LABS: Basophils % 0.2 %; Eosinophils % 0.5 %; Hematocrit 35.2 % (35.3-44.9); Hemoglobin 10.5 g/dL (11.5-15.4); Immature Granulocytes % 0.8 % (0-4); Lymphocytes # 0.8 K/mcL (0.6-4.6); Lymphocytes % 13.3 %; Mean Corpuscular HGB Conc 29.8 g/dL (31.6-35.5); Mean Corpuscular Hemoglobin 28.6 pg (28.0-33.3); Mean Corpuscular Volume 95.9 fL (83.0-100.0); Mean Platelet Volume 10.2 fL (9.4-12.4); Monocytes # 0.6 K/mcL (0.0-1.3); Monocytes % 9.2 %; Neutrophils # 4.7 K/mcL (1.6-8.9); Platelet Count 188 K/mcL (140-400); Red Blood Count 3.67 M/mcL (3.82-4.97)
[2018-01-07 05:20] LABS: BUN/Creatinine Ratio 59 (6-26); Blood Urea Nitrogen 47 mg/dL (8-23); Carbon Dioxide 44 mEq/L (23-29); Chloride 104 mEq/L (98-107); Glucose 108 mg/dL (70-105); Osmolality,Calculated 319 (280-300); Potassium 4.5 mEq/L (3.5-5.1); Sodium 148 mEq/L (136-145); eGFR For African Americans > 60 (> 60); eGFR For Non-African Americans > 60 (> 60)
[2018-01-07] MEDS: Insulin LISPRO 300 UNITS/3 ML VIAL SQ SCH ×3 (08:02→16:31)
[2018-01-07] MEDS: Lactulose Oral Soln 20 GM/30 ML UDC PO SCH ×2 (09:02→21:49)
[2018-01-07] MEDS: Aspirin 325 MG TABLET PO SCH (09:03)
[2018-01-07] MEDS: Gabapentin 300 MG CAPSULE PO SCH ×2 (09:04→21:51)
[2018-01-07] MEDS: Folic Acid 1 MG TABLET PO SCH (09:04)
[2018-01-07] MEDS: amLODIPine 5 MG TABLET PO SCH (09:04)
[2018-01-07] MEDS: lamoTRIgine 100 MG TABLET PO SCH (09:04)
[2018-01-07] MEDS: Cholecalciferol (D-3) 1,000 UNIT TABLET PO SCH (09:04)
[2018-01-07] MEDS: Nicotine 14 MG PATCH.TD24 TD SCH (09:05)
[2018-01-07] MEDS ORDERED: methylPREDNISolone 125 MG/2 ML VIAL IVP ONE (11:24)
--- NOTE | 2018-01-07 11:30 | Internal Med Progress Note ---
Date of Encounter: 01/07/18 Time of Encounter: 11:26 - Assessment and plan (1) Acute exacerbation of chronic obstructive airways disease Current Visit: Yes Status: Acute Assessment and plan: Acute on chronic hypoxic hypercapnic respiratory failure secondary to acute COPD exacerbation due to acute bacterial bronchitis in combination with possible acute pulmonary edema status post extubation Resume steroids, start Solu-Medrol Continue Levaquin day #6, the patient received 2 days of Rocephin and azithromycin until January 01, received 2 days of Zosyn until January 02 Repeat chest x-ray, continue BiPAP, may repeat ABG is not improving Worsening respiratory status. Consider CT scan of the chest Was intubated in the ICU Last chest x-ray showed severe emphysema with superimposed interstitial edema, the initial chest x-ray showed possible acute bronchitis (2) Diastolic heart failure Current Visit: Yes Status: Chronic Assessment and plan: History of diastolic CHF Order echocardiogram Start IV Lasix Qualifiers: Heart failure chronicity: acute on chronic Qualified Code(s): I50.33 - Acute on chronic diastolic (congestive) heart failure (3) Acute respiratory failure with hypoxia and hypercapnia Current Visit: Yes Status: Acute (4) Respiratory acidosis Current Visit: Yes Status: Resolved Assessment and plan: PH was 7.14 upon admission (5) Diabetes mellitus Current Visit: Yes Status: Chronic Assessment and plan: Accuchecks and coverage. Insulin sliding scale Qualifiers: Diabetes mellitus type: type 2 Diabetes mellitus mcc insulin use: without termite treater helper use Diabetes mellitus complication status: with hyperglycemia Qualified Code(s): E11.65 - Type 2 diabetes mellitus with hyperglycemia (6) DVT prophylaxis Current Visit: Yes Status: Acute Assessment and plan: Heparin (7) Hypertension Current Visit: Yes Status: Chronic Assessment and plan: Continue losartan Qualifiers: Hypertension type: essential hypertension Qualified Code(s): I10 - Essential (primary) hypertension (8) DOMINIK (acute kidney injury) Current Visit: Yes Status: Resolved Assessment and plan: Resolved Creatinine was 1.22, baseline of 0.7 (9) Hypothyroidism Current Visit: Yes Status: Chronic Qualifiers: Hypothyroidism type: unspecified Qualified Code(s): E03.9 - Hypothyroidism , unspecified (10) Acute metabolic encephalopathy Current Visit: Yes Status: Resolved Assessment and plan: Secondary to acute on chronic respiratory failure (11) Tobacco use Current Visit: No Status: Acute Assessment and plan: Smoking cessation counseling, nicotine patch (12) Rheumatoid arthritis Current Visit: No Status: Chronic Assessment and plan: Hold methotrexate. Qualifiers: Rheumatoid arthritis location: wrist Rheumatoid factor presence: with rheumatoid factor Laterality: bilateral Qualified Code(s): M05.731 - Rheumatoid arthritis with rheumatoid factor of right wrist without organ or systems involvement; M05.732 - Rheumatoid arthritis with rheumatoid factor of left wrist without organ or systems involvement; M05.732 - Rheumatoid arthritis with rheumatoid factor of left wrist without organ or systems involvement; M05.732 - Rheumatoid arthritis with rheumatoid factor of left wrist without organ or systems involvement; M05.732 - Rheumatoid arthritis with rheumatoid factor of left wrist without organ or systems involvement - Time Spent With Patient Total time spent is greater than 50% in coordination of care (as documented) at patient's floor/unit and/or counseling patient: - Subjective Interval history: Saturation of oxygen dropping to the 80s while coming off BiPAP, feels very short of breath, denies any chest pain, no abdominal pain, no dysuria or diarrhea - Constitutional Vitals: Temp Pulse Resp BP Pulse Ox 97.6 F 58 18 150/75 99 01/07/18 07:31 01/07/18 07:31 01/07/18 11:09 01/07/18 07:31 01/07/18 11:09 General appearance: Present: A&O X 3, pleasant, no acute distress, answers questions appropriately - Head Head exam: Present: atraumatic, normocephalic - Eye Eye exam: Present: PERRL, conjuntiva pink, sclera anicteric Pupils: Present: PERRL - Neck Neck exam general surgery: Present: supple, trachea midline. Absent: lymphadenopathy - Respiratory Respiratory exam: Present: CTAB, rales (Bibasilar crackles, very diminished breath sounds). Absent: accessory muscle use, rhonchi, wheezes - Cardiovascular Cardiovascular exam: Present: RRR, +S1, +S2. Absent: diastolic murmur, gallop, rubs, systolic murmur - GI/Abdominal GI/Abdominal exam: Present: normal bowel sounds, soft, no peritoneal signs. Absent: distended, tenderness - Extremities Exam Extremities exam: Present: warm, radial pulses palpable and symmetrical. Absent : calf tenderness, cyanotic, pedal edema - Neurological Exam Neurological exam: Present: CN II-XII intact, oriented X3, no focal deficits. Absent: pronater drift, facial droop, speech deficit - Skin Skin exam: Present: dry. Absent: intact Additional comments: Skin is very frail, ecchymotic areas in both upper extremities +1 pitting edema in both lower extremities Internal Medicine: Result - Labs CBC & Chem 7: 01/07/18 04:00 01/07/18 04:00 Labs: Short CBC 01/07/18 Range/Units 04:00 WBC 6.2 (4.3-11.1) K/mcL Hgb 10.5 L (11.5-15.4) g/dL Hct 35.2 L (35.3-44.9) % Plt Count 188 (140-400) K/mcL Neutrophils # 4.7 (1.6-8.9) K/mcL BMP 01/07/18 04:00 Sodium 148 H Potassium 4.5 Chloride 104 Carbon Dioxide 44 H* BUN 47 H Creatinine 0.79 Glucose 108 H Calcium 9.0 - ABG Interpretation ABG results: ABG ABG pH 7.55 pH Units (7.32-7.45) H 01/04/18 05:02 ABG pCO2 42 mmHg (35-45) 01/04/18 05:02 ABG pO2 110 mmHg (85-104) H 01/04/18 05:02 ABG O2 Saturation 99 % (95-98) H 01/04/18 05:02 PT/INR, D-dimer PT 11.3 Seconds (9.4-12.1) 01/01/18 05:44 Consult Discharge Plan - Plan Referrals: Jose G Toure MD [Primary Care Provider] -
[2018-01-07] MEDS: Levofloxacin 750 MG/150 ML 750 MG/150 ML BAG IVPB SCH (11:48)
[2018-01-07] MEDS: Furosemide 20 MG/2 ML VIAL IVP SCH ×2 (11:49→21:49)
[2018-01-07] MEDS: MethylPREDNISolone 40 MG/ML VIAL IVP SCH (16:32)
[2018-01-08] MEDS: MethylPREDNISolone 40 MG/ML VIAL IVP SCH ×3 (00:11→16:49)
[2018-01-08] MEDS: *HR* Heparin 5,000 UNIT/ML VIAL SQ SCH ×3 (00:12→16:49)
[2018-01-08] MEDS: Ipratropium/Albuterol Neb 3 ML IH SCH ×6 (03:07→23:13)
[2018-01-08] MEDS: *HR* HYDROcodone/Acet 5/325 mg TABLET PO PRN ×2 (06:06→21:05)
[2018-01-08] MEDS: Levofloxacin 750 MG/150 ML 750 MG/150 ML BAG IVPB SCH (08:35)
[2018-01-08] MEDS: Nicotine 14 MG PATCH.TD24 TD SCH (08:36)
[2018-01-08] MEDS: lamoTRIgine 100 MG TABLET PO SCH (08:37)
[2018-01-08] MEDS: Furosemide 20 MG/2 ML VIAL IVP SCH ×2 (08:37→21:02)
[2018-01-08] MEDS: Insulin LISPRO 300 UNITS/3 ML VIAL SQ SCH ×4 (08:38→21:03)
[2018-01-08] MEDS: amLODIPine 5 MG TABLET PO SCH (08:38)
[2018-01-08] MEDS: Folic Acid 1 MG TABLET PO SCH (08:38)
[2018-01-08] MEDS: Aspirin 325 MG TABLET PO SCH (08:38)
[2018-01-08] MEDS: Cholecalciferol (D-3) 1,000 UNIT TABLET PO SCH (08:39)
[2018-01-08] MEDS: Lactulose Oral Soln 20 GM/30 ML UDC PO SCH ×2 (08:39→21:02)
[2018-01-08] MEDS: Gabapentin 300 MG CAPSULE PO SCH ×2 (08:39→21:13)
--- NOTE | 2018-01-08 14:40 | Internal Med Progress Note ---
Date of Encounter: 01/08/18 Time of Encounter: 14:38 - Assessment and plan (1) Acute exacerbation of chronic obstructive airways disease Current Visit: Yes Status: Acute Assessment and plan: Acute on chronic hypoxic hypercapnic respiratory failure secondary to acute COPD exacerbation due to acute bacterial bronchitis in combination with possible acute pulmonary edema status post extubation Still on 6 L Continue Solu-Medrol Lasix due to congestion Continue Levaquin day #7, the patient received 2 days of Rocephin and azithromycin until January 01, received 2 days of Zosyn until January 02 baseline HOme O 2 requirements is 4 L continue BiPAP PRN Was intubated in the ICU Last chest x-ray showed severe emphysema with superimposed interstitial edema, the initial chest x-ray showed possible acute bronchitis (2) Diastolic heart failure Current Visit: Yes Status: Chronic Assessment and plan: History of diastolic CHF Echocardiogram showed EF of 65-70%, mild diastolic dysfunction IV Lasix Qualifiers: Heart failure chronicity: acute on chronic Qualified Code(s): I50.33 - Acute on chronic diastolic (congestive) heart failure (3) Acute respiratory failure with hypoxia and hypercapnia Current Visit: Yes Status: Acute (4) Respiratory acidosis Current Visit: Yes Status: Resolved Assessment and plan: PH was 7.14 upon admission (5) Diabetes mellitus Current Visit: Yes Status: Chronic Assessment and plan: Accuchecks and coverage. Insulin sliding scale Qualifiers: Diabetes mellitus type: type 2 Diabetes mellitus halfway insulin use: without ferry terminal supervisor use Diabetes mellitus complication status: with hyperglycemia Qualified Code(s): E11.65 - Type 2 diabetes mellitus with hyperglycemia (6) Hypertension Current Visit: Yes Status: Chronic Assessment and plan: Continue losartan Qualifiers: Hypertension type: essential hypertension Qualified Code(s): I10 - Essential (primary) hypertension (7) DOMINIK (acute kidney injury) Current Visit: Yes Status: Resolved Assessment and plan: Resolved Creatinine was 1.22, baseline of 0.7 (8) Hypothyroidism Current Visit: Yes Status: Chronic Qualifiers: Hypothyroidism type: unspecified Qualified Code(s): E03.9 - Hypothyroidism , unspecified (9) Acute metabolic encephalopathy Current Visit: Yes Status: Resolved Assessment and plan: Secondary to acute on chronic respiratory failure (10) Tobacco use Current Visit: No Status: Acute Assessment and plan: Smoking cessation counseling, nicotine patch (11) Rheumatoid arthritis Current Visit: No Status: Chronic Assessment and plan: Hold methotrexate. Qualifiers: Rheumatoid arthritis location: wrist Rheumatoid factor presence: with rheumatoid factor Laterality: bilateral Qualified Code(s): M05.731 - Rheumatoid arthritis with rheumatoid factor of right wrist without organ or systems involvement; M05.732 - Rheumatoid arthritis with rheumatoid factor of left wrist without organ or systems involvement; M05.732 - Rheumatoid arthritis with rheumatoid factor of left wrist without organ or systems involvement; M05.732 - Rheumatoid arthritis with rheumatoid factor of left wrist without organ or systems involvement; M05.732 - Rheumatoid arthritis with rheumatoid factor of left wrist without organ or systems involvement - Time Spent With Patient Total time spent is greater than 50% in coordination of care (as documented) at patient's floor/unit and/or counseling patient: - Subjective Interval history: Less SOB and weak. Saturation of oxygen dropping to the 80s while coming off BiPAP on 01/07/18, denies any chest pain, no abdominal pain, no dysuria or diarrhea - Constitutional Vitals: Temp Pulse Resp BP Pulse Ox 97.0 F L 78 30 145/66 97 01/08/18 12:00 01/08/18 12:00 01/08/18 12:00 01/08/18 12:00 01/08/18 12:00 General appearance: Present: A&O X 3, pleasant, no acute distress, answers questions appropriately Exam: - Head Head exam: Present: atraumatic, normocephalic - Eye Eye exam: Present: PERRL, conjuntiva pink, sclera anicteric Pupils: Present: PERRL - Neck Neck exam general surgery: Present: supple, trachea midline. Absent: lymphadenopathy - Respiratory Respiratory exam: Present: CTAB, rales (Bibasilar fine crackles, very diminished breath sounds). Absent: accessory muscle use, rhonchi, wheezes - Cardiovascular Cardiovascular exam: Present: RRR, +S1, +S2. Absent: diastolic murmur, gallop, rubs, systolic murmur - GI/Abdominal GI/Abdominal exam: Present: normal bowel sounds, soft, no peritoneal signs. Absent: distended, tenderness - Extremities Exam Extremities exam: Present: warm, radial pulses palpable and symmetrical. Absent : calf tenderness, cyanotic, pedal edema - Neurological Exam Neurological exam: Present: CN II-XII intact, oriented X3, no focal deficits. Absent: pronater drift, facial droop, speech deficit - Skin Skin exam: Present: dry. Absent: intact Additional comments: Skin is very frail, ecchymotic areas in both upper extremities +1 pitting edema in both lower extremities Internal Medicine: Result - Labs CBC & Chem 7: 01/07/18 04:00 01/07/18 04:00 - ABG Interpretation ABG results: ABG ABG pH 7.55 pH Units (7.32-7.45) H 01/04/18 05:02 ABG pCO2 42 mmHg (35-45) 01/04/18 05:02 ABG pO2 110 mmHg (85-104) H 01/04/18 05:02 ABG O2 Saturation 99 % (95-98) H 01/04/18 05:02 PT/INR, D-dimer PT 11.3 Seconds (9.4-12.1) 01/01/18 05:44 - Impressions Impressions Chest X-Ray 01/07/18 11:24 IMPRESSION: Interval removal of endotracheal and enteric tubes. Otherwise no significant change from 01/04/2018. D/ / Laney Mccray MD / Laney Mccray MD Interpreting Provider: Laney Mccray MD Echocardiogram 01/07/18 11:28 Impressions: No pulmonary hypertension. LVEF 65-70%. Mild left ventricular diastolic dysfunction. No significant valvular dysfunction. Left Ventricular Wall Motion: Rest Echo Findings The apex, apical inferior, mid inferior, basal inferior, apical anterior, mid anterior, basal anterior, apical septal, mid inferior septal, basal inferior septal, apical lateral, mid anterior lateral, basal anterior lateral, mid anterior septal, mid inferior lateral, basal anterior septal and basal inferior lateral villegas were hyperkinetic. Findings: Right Ventricle * Normal right ventricular structure and function. Right Atrium * Normal right atrial size. Interatrial Septum * No evidence of PFO by color Doppler. Aorta * Normally sized aortic root. Pericardium * The pericardium appears normal. Study Quality * Technically adequate exam. ECG Findings * Normal sinus rhythm. Mitral Valve * Mildly calcified mitral valve leaflets. * No mitral stenosis. * Trace mitral regurgitation. Tricuspid Valve * Trace tricuspid regurgitation. * No tricuspid stenosis. * Estimated RVSP is 28 mmHg. * No pulmonary hypertension. * Estimated RA pressure is 0-5 mmHg. Pulmonic Valve * No pulmonic regurgitation. * No pulmonic stenosis. Aortic Valve * No aortic regurgitation. * No aortic stenosis. * Aortic valve not well visualized. Left Ventricle * LVEF 65-70%. * Mild left ventricular diastolic dysfunction. Left Atrium * Mildly dilated left atrium. Consult Discharge Plan - Plan Referrals: Jose G Toure MD [Primary Care Provider] -
[2018-01-09] MEDS: MethylPREDNISolone 40 MG/ML VIAL IVP SCH ×3 (00:06→20:08)
[2018-01-09] MEDS: *HR* Heparin 5,000 UNIT/ML VIAL SQ SCH ×4 (00:06→23:15)
[2018-01-09] MEDS: Ipratropium/Albuterol Neb 3 ML IH SCH ×6 (03:29→23:44)
[2018-01-09 04:44] LABS: BUN/Creatinine Ratio 42 (6-26); Blood Urea Nitrogen 33 mg/dL (8-23); Calcium 8.9 mg/dL (8.6-10.3); Carbon Dioxide 44 mEq/L (23-29); Chloride 94 mEq/L (98-107); Glucose 236 mg/dL (70-105); Osmolality,Calculated 311 (280-300); Sodium 143 mEq/L (136-145); eGFR For African Americans > 60 (> 60); eGFR For Non-African Americans > 60 (> 60)
[2018-01-09] MEDS: *HR* HYDROcodone/Acet 5/325 mg TABLET PO PRN ×2 (05:22→17:27)
--- NOTE | 2018-01-09 05:57 | Electrocardiograph Report ---
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
[2018-01-09] MEDS: Lactulose Oral Soln 20 GM/30 ML UDC PO SCH ×2 (07:54→20:05)
[2018-01-09] MEDS: amLODIPine 5 MG TABLET PO SCH (07:55)
[2018-01-09] MEDS: Furosemide 20 MG/2 ML VIAL IVP SCH ×2 (07:55→20:04)
[2018-01-09] MEDS: Cholecalciferol (D-3) 1,000 UNIT TABLET PO SCH (07:55)
[2018-01-09] MEDS: Folic Acid 1 MG TABLET PO SCH (07:55)
[2018-01-09] MEDS: lamoTRIgine 100 MG TABLET PO SCH (07:56)
[2018-01-09] MEDS: Aspirin 325 MG TABLET PO SCH (07:56)
[2018-01-09] MEDS: Gabapentin 300 MG CAPSULE PO SCH ×2 (07:56→20:06)
[2018-01-09] MEDS: Nicotine 14 MG PATCH.TD24 TD SCH (07:56)
[2018-01-09] MEDS: Levofloxacin 750 MG/150 ML 750 MG/150 ML BAG IVPB SCH (07:57)
[2018-01-09] MEDS: Insulin LISPRO 300 UNITS/3 ML VIAL SQ SCH ×4 (07:58→20:10)
--- NOTE | 2018-01-09 13:14 | Electrocardiograph Report ---
[address] [place], [place] [address] Test Date: 2018-01-06 Pat Name: Lilly Jhaveri Department: 114 Room: [facility] Gender: F Hand Buffer: : 1945 Requested By: Chuck Gresham Order Number: [id number] Reading MD: Cas Rowley Measurements Intervals [place] Rate: 59 P: 87 SD: 149 QRS: -3 QRSD: 84 T: 78 QT: 399 QTc: 399 Interpretive Statements SINUS BRADYCARDIA Electronically Signed On 01-09-2018 9:56:10 EDT by Cas Rowley
--- NOTE | 2018-01-09 16:02 | Internal Med Progress Note ---
Date of Encounter: 01/09/18 Time of Encounter: 16:00 - Assessment and plan (1) Acute exacerbation of chronic obstructive airways disease Current Visit: Yes Status: Acute Assessment and plan: Acute on chronic hypoxic hypercapnic respiratory failure secondary to acute COPD exacerbation due to acute bacterial bronchitis in combination with possible acute pulmonary edema status post extubation Still on 6 L Continue Solu-Medrol Lasix due to congestion Stop Levaquin day #8, the patient received 2 days of Rocephin and azithromycin until January 01, received 2 days of Zosyn until January 02 baseline HOme O 2 requirements is 4 L continue BiPAP PRN Was intubated in the ICU Last chest x-ray showed severe emphysema with superimposed interstitial edema, the initial chest x-ray showed possible acute bronchitis (2) Diastolic heart failure Current Visit: Yes Status: Chronic Assessment and plan: History of diastolic CHF Echocardiogram showed EF of 65-70%, mild diastolic dysfunction IV Lasix Qualifiers: Heart failure chronicity: acute on chronic Qualified Code(s): I50.33 - Acute on chronic diastolic (congestive) heart failure (3) Acute respiratory failure with hypoxia and hypercapnia Current Visit: Yes Status: Acute (4) Respiratory acidosis Current Visit: Yes Status: Resolved Assessment and plan: PH was 7.14 upon admission (5) Diabetes mellitus Current Visit: Yes Status: Chronic Assessment and plan: Accuchecks and coverage. Insulin sliding scale Qualifiers: Diabetes mellitus type: type 2 Diabetes mellitus termination clerk insulin use: without longterm use Diabetes mellitus complication status: with hyperglycemia Qualified Code(s): E11.65 - Type 2 diabetes mellitus with hyperglycemia (6) Hypertension Current Visit: Yes Status: Chronic Assessment and plan: Continue losartan Qualifiers: Hypertension type: essential hypertension Qualified Code(s): I10 - Essential (primary) hypertension (7) DOMINIK (acute kidney injury) Current Visit: Yes Status: Resolved Assessment and plan: Resolved Creatinine was 1.22, baseline of 0.7 (8) Hypothyroidism Current Visit: Yes Status: Chronic Qualifiers: Hypothyroidism type: unspecified Qualified Code(s): E03.9 - Hypothyroidism , unspecified (9) Acute metabolic encephalopathy Current Visit: Yes Status: Resolved Assessment and plan: Secondary to acute on chronic respiratory failure (10) Tobacco use Current Visit: No Status: Acute Assessment and plan: Smoking cessation counseling, nicotine patch (11) Rheumatoid arthritis Current Visit: No Status: Chronic Assessment and plan: Hold methotrexate. Qualifiers: Rheumatoid arthritis location: wrist Rheumatoid factor presence: with rheumatoid factor Laterality: bilateral Qualified Code(s): M05.731 - Rheumatoid arthritis with rheumatoid factor of right wrist without organ or systems involvement; M05.732 - Rheumatoid arthritis with rheumatoid factor of left wrist without organ or systems involvement; M05.732 - Rheumatoid arthritis with rheumatoid factor of left wrist without organ or systems involvement; M05.732 - Rheumatoid arthritis with rheumatoid factor of left wrist without organ or systems involvement; M05.732 - Rheumatoid arthritis with rheumatoid factor of left wrist without organ or systems involvement - Time Spent With Patient Total time spent is greater than 50% in coordination of care (as documented) at patient's floor/unit and/or counseling patient: - Subjective Interval history: Feeling slightly better but still weak and short of breath. Saturation of oxygen dropping to the 80s while coming off BiPAP on 01/07/18, denies any chest pain, no abdominal pain, no dysuria or diarrhea - Constitutional Vitals: Temp Pulse Resp BP Pulse Ox 97.9 F 84 20 129/76 100 01/09/18 11:40 01/09/18 15:39 01/09/18 15:56 01/09/18 12:00 01/09/18 15:56 General appearance: Present: A&O X 3, pleasant, no acute distress, answers questions appropriately Exam: - Head Head exam: Present: atraumatic, normocephalic - Eye Eye exam: Present: PERRL, conjuntiva pink, sclera anicteric Pupils: Present: PERRL - Neck Neck exam general surgery: Present: supple, trachea midline. Absent: lymphadenopathy - Respiratory Respiratory exam: Present: CTAB, rales (Bibasilar fine crackles, very diminished breath sounds). Absent: accessory muscle use, rhonchi, wheezes - Cardiovascular Cardiovascular exam: Present: RRR, +S1, +S2. Absent: diastolic murmur, gallop, rubs, systolic murmur - GI/Abdominal GI/Abdominal exam: Present: normal bowel sounds, soft, no peritoneal signs. Absent: distended, tenderness - Extremities Exam Extremities exam: Present: warm, radial pulses palpable and symmetrical. Absent : calf tenderness, cyanotic, pedal edema - Neurological Exam Neurological exam: Present: CN II-XII intact, oriented X3, no focal deficits. Absent: pronater drift, facial droop, speech deficit - Skin Skin exam: Present: dry. Absent: intact Additional comments: Skin is very frail, ecchymotic areas in both upper extremities +1 pitting edema in both lower extremities Internal Medicine: Result - Labs CBC & Chem 7: 01/07/18 04:00 01/09/18 03:45 Labs: BMP 01/09/18 03:45 Sodium 143 Potassium 4.0 Chloride 94 L Carbon Dioxide 44 H* BUN 33 H Creatinine 0.78 Glucose 236 H Calcium 8.9 - ABG Interpretation ABG results: ABG ABG pH 7.55 pH Units (7.32-7.45) H 01/04/18 05:02 ABG pCO2 42 mmHg (35-45) 01/04/18 05:02 ABG pO2 110 mmHg (85-104) H 01/04/18 05:02 ABG O2 Saturation 99 % (95-98) H 01/04/18 05:02 PT/INR, D-dimer PT 11.3 Seconds (9.4-12.1) 01/01/18 05:44 Consult Discharge Plan - Plan Referrals: Jose G Toure MD [Primary Care Provider] -
[2018-01-10] MEDS: Ipratropium/Albuterol Neb 3 ML IH SCH ×5 (03:19→20:30)
[2018-01-10] MEDS: *HR* HYDROcodone/Acet 5/325 mg TABLET PO PRN ×3 (10:35→20:49)
[2018-01-10] MEDS: MethylPREDNISolone 40 MG/ML VIAL IVP SCH (11:49)
[2018-01-10] MEDS: Gabapentin 300 MG CAPSULE PO SCH ×2 (11:49→20:48)
[2018-01-10] MEDS: Aspirin 325 MG TABLET PO SCH (11:49)
[2018-01-10] MEDS: Furosemide 20 MG/2 ML VIAL IVP SCH ×2 (11:49→20:48)
[2018-01-10] MEDS: Insulin LISPRO 300 UNITS/3 ML VIAL SQ SCH ×4 (11:50→20:55)
[2018-01-10] MEDS: *HR* Heparin 5,000 UNIT/ML VIAL SQ SCH ×2 (12:51→15:48)
--- NOTE | 2018-01-10 13:32 | Internal Med Progress Note ---
Date of Encounter: 01/10/18 Time of Encounter: 13:00 - Assessment and plan (1) Acute exacerbation of chronic obstructive airways disease Current Visit: Yes Status: Acute Assessment and plan: Acute on chronic hypoxic hypercapnic respiratory failure secondary to acute COPD exacerbation due to acute bacterial bronchitis in combination with possible acute pulmonary edema status post extubation Still on 6 L Will taper slumedrol to po prednisone. Completed course of antibiotic Lasix due to congestion continue BiPAP PRN. Repeat cxr today 01/10 Was intubated in the ICU Last chest x-ray showed severe emphysema with superimposed interstitial edema, the initial chest x-ray showed possible acute bronchitis (2) Acute respiratory failure with hypoxia and hypercapnia Current Visit: Yes Status: Acute Assessment and plan: See management for COPD (3) Respiratory acidosis Current Visit: Yes Status: Resolved Assessment and plan: PH was 7.14 upon admission and is s/p intubation and extubation. Continue BIPAP as needed (4) Diabetes mellitus Current Visit: Yes Status: Chronic Assessment and plan: Accuchecks and coverage. Insulin sliding scale Qualifiers: Diabetes mellitus type: type 2 Diabetes mellitus lobsterman insulin use: without assisted use Diabetes mellitus complication status: with hyperglycemia Qualified Code(s): E11.65 - Type 2 diabetes mellitus with hyperglycemia (5) Hypertension Current Visit: Yes Status: Chronic Assessment and plan: Continue losartan Qualifiers: Hypertension type: essential hypertension Qualified Code(s): I10 - Essential (primary) hypertension (6) DOMINIK (acute kidney injury) Current Visit: Yes Status: Resolved Assessment and plan: Resolved Creatinine was 1.22, baseline of 0.7 (7) Diastolic heart failure Current Visit: Yes Status: Chronic Assessment and plan: History of diastolic CHF Echocardiogram showed EF of 65-70%, mild diastolic dysfunction IV Lasix Qualifiers: Heart failure chronicity: acute on chronic Qualified Code(s): I50.33 - Acute on chronic diastolic (congestive) heart failure (8) Hypothyroidism Current Visit: Yes Status: Chronic Qualifiers: Hypothyroidism type: unspecified Qualified Code(s): E03.9 - Hypothyroidism , unspecified (9) Rheumatoid arthritis Current Visit: No Status: Chronic Assessment and plan: Hold methotrexate. Qualifiers: Rheumatoid arthritis location: wrist Rheumatoid factor presence: with rheumatoid factor Laterality: bilateral Qualified Code(s): M05.731 - Rheumatoid arthritis with rheumatoid factor of right wrist without organ or systems involvement; M05.732 - Rheumatoid arthritis with rheumatoid factor of left wrist without organ or systems involvement; M05.732 - Rheumatoid arthritis with rheumatoid factor of left wrist without organ or systems involvement; M05.732 - Rheumatoid arthritis with rheumatoid factor of left wrist without organ or systems involvement; M05.732 - Rheumatoid arthritis with rheumatoid factor of left wrist without organ or systems involvement (10) Tobacco use Current Visit: No Status: Acute Assessment and plan: Smoking cessation counseling, nicotine patch (11) Acute metabolic encephalopathy Current Visit: Yes Status: Resolved Assessment and plan: Secondary to acute on chronic respiratory failure - Time Spent With Patient Total time spent is greater than 50% in coordination of care (as documented) at patient's floor/unit and/or counseling patient: - Subjective Interval history: No acute events overnight - Constitutional Vitals: Temp Pulse Resp BP Pulse Ox 98.1 F 83 22 133/63 97 01/10/18 12:41 01/10/18 12:41 01/10/18 12:41 01/10/18 12:41 01/10/18 12:41 General appearance: Present: A&O X 3, pleasant, no acute distress, answers questions appropriately - Head Head exam: Present: atraumatic, normocephalic - Eye Eye exam: Present: PERRL, conjuntiva pink, sclera anicteric Pupils: Present: PERRL - Neck Neck exam general surgery: Present: supple, trachea midline. Absent: lymphadenopathy - Respiratory Respiratory exam: Present: CTAB. Absent: accessory muscle use, rales, rhonchi, wheezes - Cardiovascular Cardiovascular exam: Present: RRR, +S1, +S2. Absent: diastolic murmur, gallop, rubs, systolic murmur - GI/Abdominal GI/Abdominal exam: Present: normal bowel sounds, soft, no peritoneal signs. Absent: distended, tenderness - Extremities Exam Extremities exam: Present: warm, radial pulses palpable and symmetrical. Absent : calf tenderness, cyanotic, pedal edema - Neurological Exam Neurological exam: Present: CN II-XII intact, oriented X3, no focal deficits. Absent: pronater drift, facial droop, speech deficit - Skin Skin exam: Present: dry, intact Internal Medicine: Result - Labs CBC & Chem 7: 01/07/18 04:00 01/09/18 03:45 - ABG Interpretation ABG results: ABG ABG pH 7.55 pH Units (7.32-7.45) H 01/04/18 05:02 ABG pCO2 42 mmHg (35-45) 01/04/18 05:02 ABG pO2 110 mmHg (85-104) H 01/04/18 05:02 ABG O2 Saturation 99 % (95-98) H 01/04/18 05:02 PT/INR, D-dimer PT 11.3 Seconds (9.4-12.1) 01/01/18 05:44 Consult Discharge Plan - Plan Referrals: Jose G Toure MD [Primary Care Provider] -
[2018-01-10] MEDS: Folic Acid 1 MG TABLET PO SCH (14:41)
[2018-01-10] MEDS: Cholecalciferol (D-3) 1,000 UNIT TABLET PO SCH (14:41)
[2018-01-10] MEDS: amLODIPine 5 MG TABLET PO SCH (14:41)
[2018-01-10] MEDS: Lactulose Oral Soln 20 GM/30 ML UDC PO SCH ×2 (17:50→20:48)
[2018-01-10] MEDS: lamoTRIgine 100 MG TABLET PO SCH (17:51)
[2018-01-10] MEDS: Nicotine 14 MG PATCH.TD24 TD SCH (17:51)
[2018-01-11] MEDS: *HR* Heparin 5,000 UNIT/ML VIAL SQ SCH ×2 (00:21→07:46)
[2018-01-11] MEDS: Ipratropium/Albuterol Neb 3 ML IH SCH ×5 (00:47→15:49)
[2018-01-11 05:40] LABS: BUN/Creatinine Ratio 39 (6-26); Blood Urea Nitrogen 27 mg/dL (8-23); Carbon Dioxide 42 mEq/L (23-29); Chloride 101 mEq/L (98-107); Glucose 155 mg/dL (70-105); Osmolality,Calculated 314 (280-300); Potassium 3.5 mEq/L (3.5-5.1); Sodium 148 mEq/L (136-145); eGFR For African Americans > 60 (> 60); eGFR For Non-African Americans > 60 (> 60)
[2018-01-11] MEDS: Folic Acid 1 MG TABLET PO SCH (07:43)
[2018-01-11] MEDS: Aspirin 325 MG TABLET PO SCH (07:43)
[2018-01-11] MEDS: amLODIPine 5 MG TABLET PO SCH (07:44)
[2018-01-11] MEDS: Gabapentin 300 MG CAPSULE PO SCH (07:44)
[2018-01-11] MEDS: Cholecalciferol (D-3) 1,000 UNIT TABLET PO SCH (07:44)
[2018-01-11] MEDS: lamoTRIgine 100 MG TABLET PO SCH (07:44)
[2018-01-11] MEDS: Furosemide 20 MG/2 ML VIAL IVP SCH (07:45)
[2018-01-11] MEDS: Nicotine 14 MG PATCH.TD24 TD SCH (07:45)
[2018-01-11] MEDS: Lactulose Oral Soln 20 GM/30 ML UDC PO SCH (07:50)
[2018-01-11] MEDS: Insulin LISPRO 300 UNITS/3 ML VIAL SQ SCH ×2 (08:15→12:32)
[2018-01-11] MEDS: *HR* HYDROcodone/Acet 5/325 mg TABLET PO PRN (08:19)
[2018-01-11] MEDS ORDERED: predniSONE 20 MG TABLET PO SCH (09:00)
[2018-01-11 11:07] VITALS: BP 122/55
--- NOTE | 2018-01-11 11:12 | Discharge Summary ---
Orders not resulted at time of discharge: Pending orders 01/12/18 04:00 Basic Metabolic Panel AM 04001/13/18 04:00 Basic Metabolic Panel AM 39901/14/18 04:00 Basic Metabolic Panel AM 39901/15/18 04:00 Basic Metabolic Panel AM 39901/16/18 04:00 Basic Metabolic Panel AM 040 Date of Encounter: 01/11/18 Time of Encounter: 11:00 - Discharge Diagnosis (1) Acute exacerbation of chronic obstructive airways disease Priority: Primary Status: Acute Assessment and Plan: 72 year old female with COPD, tobacco abuse, diabetes, rheumatoid arthritis who camei in with inability to lie down flat and persistent coughing. She was assessed with acute on chronic hypoxic hypercapnic respiratory failure secondary to acute COPD exacerbation due to acute bacterial bronchitis. She was started on BIPAP, nebs , steroids and antibiotics. Her respiratory status continued to decline with respiratory acidosis and she was intubated on 01/01 and managed supportively in the ICU. she tolerated CPAP and was successfully extubated on 01/04. She tolerated BiPAP and was transferred tp the floor. She was continued on lasix and Iv steroids on the floor after which she was successfully tapered to po steroids. She was stable for discharge with her oxygen requirements back to her baseline and she was discharged home in a stable condition. (2) Acute respiratory failure with hypoxia and hypercapnia Priority: Primary Status: Acute Assessment and Plan: See management for COPD (3) Respiratory acidosis Priority: Secondary Status: Resolved Assessment and Plan: PH was 7.14 upon admission and is s/p intubation and extubation. Continue BIPAP as needed (4) Diabetes mellitus Priority: Secondary Status: Chronic Assessment and Plan: Accuchecks and coverage. Insulin sliding scale Qualifiers: Diabetes mellitus type: type 2 Diabetes mellitus detention insulin use: without ad terminal makeup operator use Diabetes mellitus complication status: with hyperglycemia Qualified Code(s): E11.65 - Type 2 diabetes mellitus with hyperglycemia (5) Hypertension Priority: Secondary Status: Chronic Assessment and Plan: Continue losartan Qualifiers: Hypertension type: essential hypertension Qualified Code(s): I10 - Essential (primary) hypertension (6) DOMINIK (acute kidney injury) Priority: Secondary Status: Resolved Assessment and Plan: Resolved Creatinine was 1.22, baseline of 0.7 (7) Diastolic heart failure Priority: Secondary Status: Chronic Assessment and Plan: History of diastolic CHF Echocardiogram showed EF of 65-70%, mild diastolic dysfunction IV Lasix Qualifiers: Heart failure chronicity: acute on chronic Qualified Code(s): I50.33 - Acute on chronic diastolic (congestive) heart failure (8) Hypothyroidism Priority: Secondary Status: Chronic Assessment and Plan: Continue levothyroxine Qualifiers: Hypothyroidism type: unspecified Qualified Code(s): E03.9 - Hypothyroidism , unspecified (9) Tobacco use Priority: Secondary Status: Acute Assessment and Plan: Smoking cessation counseling, nicotine patch (10) Acute metabolic encephalopathy Priority: Secondary Status: Resolved Assessment and Plan: Secondary to acute on chronic respiratory failure Hospital course: Ms. Jhaveri is a 72 year old female - Time Spent with Patient Total time spent providing and/or coordinating discharge services: - Discharge Medications Prescriptions: Docusate [Colace] 100 mg PO BID #60 capsule Polyethylene Glycol 3350 [MiraLAX] 17 gm PO DAILY #30 powd.pack predniSONE [PredniSONE] 40 mg PO DAILY #5 tablet Home Medications: Albuterol Sulfate [Ventolin Hfa] 2 puff IH QID PRN 11/16/16 [History] Aspirin Enteric Coated [Aspirin EC] 325 mg PO DAILY 11/16/16 [History] Atenolol [Tenormin] 25 mg PO DAILY 11/16/16 [History] Folic Acid 1 mg PO DAILY 11/16/16 [History] Gabapentin [Neurontin] 300 mg PO BID 11/16/16 [History] Ipratropium/Albuterol Neb [Duoneb] 3 ml IH QID 11/16/16 [History] Linagliptin [Tradjenta] 5 mg PO DAILY 11/16/16 [History] Lovastatin [Mevacor] 20 mg PO QPM 11/16/16 [History] Metformin HCl [Metformin HCl ER] 1,500 mg PO DAILY 11/16/16 [History] Methotrexate [Otrexup] 12.5 mg PO TU 11/16/16 [History] Potassium Chloride [Klor-Con 10] 10 meq PO BID 11/16/16 [History] amLODIPine [Norvasc] 5 mg PO DAILY 11/16/16 [History] Alendronate Sodium [Fosamax] 70 mg PO TU 12/31/16 [History] Cholecalciferol (Vitamin D3) [Vitamin D3] 50,000 unit PO TU 01/21/17 [History] Oxygen 4 l NS AD 01/21/17 [History] Roflumilast [Daliresp] 500 mcg PO DAILY 01/21/17 [History] lamoTRIgine [Lamotrigine] 100 mg PO DAILY 01/21/17 [History] Escitalopram [Lexapro] 10 mg PO DAILY 08/31/17 [History] Guaifenesin [Guaifenesin ER] 600 mg PO DAILY 08/31/17 [History] Nicotine Patch [Nicoderm] 14 mg TD DAILY #30 patch.[id number] 09/03/17 [Rx] Furosemide [Lasix] 20 mg PO DAILY 01/02/18 [History] Levothyroxine Sodium [Levo-T] 200 mcg PO QAM 01/02/18 [History] Losartan Potassium [Cozaar] 100 mg PO DAILY 01/02/18 [History] Docusate [Colace] 100 mg PO BID #60 capsule 01/11/18 [Rx] Polyethylene Glycol 3350 [MiraLAX] 17 gm PO DAILY #30 powd.pack 01/11/18 [Rx] predniSONE [PredniSONE] 40 mg PO DAILY #5 tablet 01/11/18 [Rx] Allergies/Adverse Reactions: 3 Allergy/AdvReac Type Severity Reaction Status Date / Time No Known Allergies Allergy Verified 01/21/17 03:23 Date of admission: 12/31/17 08:14 Primary care physician: Jose G Toure MD Consults: 01/01/18 10:11 Consult to Critical Care [CONS] Routine Consulting Provider: [facility] Reason for Consult: respiratory failure Time Notified: 09:45 Call Completed: Yes 01/05/18 09:12 Consult to Physical Therapy [CONS] Routine Comment: Evaluate, develop and implement POC Reason for Consult: Eval and treat Does patient have active BEDREST order?: No Is patient medically & hemodynamically stable?: Yes 01/07/18 07:55 Consult to Occupational Therapy [CONS] Routine Comment: Evaluate, develop and implement POC Reason for Consult: d/c planning Does patient have active BEDREST order?: No Is patient medically & hemodynamically stable?: Yes - Constitutional Vitals: Temp Pulse Resp BP Pulse Ox 98.5 F 77 18 122/55 98 01/11/18 11:04 01/11/18 11:04 01/11/18 11:04 01/11/18 11:04 01/11/18 11:04 General appearance: Present: A&O X 3, pleasant, no acute distress, answers questions appropriately - Head Head exam: Present: atraumatic, normocephalic - Eye Eye exam: Present: PERRL, conjuntiva pink, sclera anicteric Pupils: Present: PERRL - Neck Neck exam general surgery: Present: supple, trachea midline. Absent: lymphadenopathy - Respiratory Respiratory exam: Present: CTAB. Absent: accessory muscle use, rales, rhonchi, wheezes - Cardiovascular Cardiovascular exam: Present: RRR, +S1, +S2. Absent: diastolic murmur, gallop, rubs, systolic murmur - GI/Abdominal GI/Abdominal exam: Present: normal bowel sounds, soft, no peritoneal signs. Absent: distended, tenderness - Extremities Exam Extremities exam: Present: warm, radial pulses palpable and symmetrical. Absent : calf tenderness, cyanotic, pedal edema - Neurological Exam Neurological exam: Present: CN II-XII intact, oriented X3, no focal deficits. Absent: pronater drift, facial droop, speech deficit - Skin Skin exam: Present: dry, intact - Patient Status Disposition: Home, Self-Care Condition: Good - Discharge Instructions Follow Up With: Jose G Toure MD [Primary Care Provider] - 01/20/18 10:30 am
== END 2018-01-11 16:03 | disposition home or self-care (01) | DRG 133 ==
LOC: 3BNU 02:44 → EMEROO 02:44 → 3BNU 05:16 → SUATTDRO 08:14 → ICNU 01-01 11:05 → 3NENU 01-06 10:13 → ICNU 01-07 12:40 → 2SOUTHHOLD 01-10 06:28 → 2NNU 01-10 23:13
PROVIDERS: ADMIT Internal Medicine; ATTEND Internal Medicine

== ENCOUNTER 2018-10-12 18:50 | Inpatient (IN) ==
[~2018-10-12 18:50] MED LIST changes: -*HR* Midazolam HCl 5 MG/5 ML VIAL IVP ONE; +*HR* Rocuronium Bromide 100 MG/10 ML VIAL IVC ONE
[2018-10-12] MEDS ORDERED: methylPREDNISolone 125 MG/2 ML VIAL IVP ONE (18:59)
[2018-10-12] MEDS ORDERED: Ipratropium/Albuterol Neb 3 ML IH ONE (19:00)
[2018-10-12] MEDS ORDERED: *HR* LORazepam 2 MG/ML VIAL IVP ONE (19:08)
--- NOTE | 2018-10-12 19:22 | Emergency Department Note ---
Disposition Clinical Impression: COPD exacerbation Hypercapnic respiratory failure Qualifiers: Chronicity: acute on chronic Qualified Code(s): J96.22 - Acute and chronic respiratory failure with hypercapnia Disposition: Admitted As Inpatient Condition: Fair SOB HPI - General Chief Complaint: ED Shortness of Breath/Dyspnea Stated Complaint: CALEB Time Seen by Provider: 10/12/18 18:57 Source: EMS Mode of arrival: EMS Limitations: no limitations Nursing Notes Reviewed: Yes Vital Signs Reviewed: Yes - History of Present Illness 73-year-old female history of oxygen-dependent COPD as well as BiPAP at night who presents in respiratory distress. Reports symptoms of 4 days. She has had a cough as well as productive sputum that is green at home. EMS found her this evening and respiratory distress. She received 1 DuoNeb treatment in route. She denies any chest pain. She denies fevers or chills. No nausea vomiting or diarrhea. No history of DVT or PE. No other complaints. Pt Subjective Complaint: shortness of breath, cough Onset (ago): day(s) Context: recent illness Severity: severe Consistency/Duration: constant Improves with: nothing Worsens with: nothing Known history of: COPD Associated symptoms: Reports: cough, sputum production. Denies: chest pain, fever Cough present: Yes Cough Description: Involuntary, Hoarse Sputum production: Yes - Related Data Home oxygen amount: 2 liters Home Medications Medication Instructions Recorded Confirmed Albuterol Sulfate [Ventolin Hfa] 2 puff IH QID PRN 11/16/16 01/02/18 Aspirin Enteric Coated [Aspirin EC] 325 mg PO DAILY 11/16/16 01/02/18 Atenolol [Tenormin] 25 mg PO DAILY 11/16/16 01/02/18 Folic Acid 1 mg PO DAILY 11/16/16 01/02/18 Gabapentin [Neurontin] 300 mg PO BID 11/16/16 01/02/18 Ipratropium/Albuterol Neb [Duoneb] 3 ml IH QID 11/16/16 01/02/18 Linagliptin [Tradjenta] 5 mg PO DAILY 11/16/16 01/02/18 Lovastatin [Mevacor] 20 mg PO QPM 11/16/16 01/02/18 Metformin HCl [Metformin ER 1,500 mg PO DAILY 11/16/16 01/02/18 Gastric] Methotrexate [Otrexup] 12.5 mg PO TU 11/16/16 01/02/18 Potassium Chloride [Klor-Con 10] 10 meq PO BID 11/16/16 01/02/18 amLODIPine [Norvasc] 5 mg PO DAILY 11/16/16 01/02/18 Alendronate Sodium [Fosamax] 70 mg PO TU 12/31/16 01/02/18 Cholecalciferol (Vitamin D3) 50,000 unit PO TU 01/21/17 01/02/18 [Vitamin D3] Oxygen 4 l NS AD 01/21/17 01/02/18 Roflumilast [Daliresp] 500 mcg PO DAILY 01/21/17 01/02/18 lamoTRIgine [Lamotrigine] 100 mg PO DAILY 01/21/17 01/02/18 Escitalopram [Lexapro] 10 mg PO DAILY 08/31/17 01/02/18 Guaifenesin [Guaifenesin ER] 600 mg PO DAILY 08/31/17 01/02/18 Furosemide [Lasix] 20 mg PO DAILY 01/02/18 01/02/18 Levothyroxine Sodium [Levo-T] 200 mcg PO QAM 01/02/18 01/02/18 Losartan Potassium [Cozaar] 100 mg PO DAILY 01/02/18 01/02/18 Previous Rx's Medication Instructions Recorded Nicotine Patch [Nicoderm] 14 mg TD DAILY #30 patch.td24 09/03/17 Docusate [Colace] 100 mg PO BID #60 capsule 01/11/18 Polyethylene Glycol 3350 [MiraLAX] 17 gm PO DAILY #30 powd.pack 01/11/18 predniSONE [PredniSONE] 40 mg PO DAILY #5 tablet 01/11/18 Allergies Allergy/AdvReac Type Severity Reaction Status Date / Time No Known Allergies Allergy Verified 01/21/17 03:23 All systems ED: reviewed and negative except as stated. Constitutional: Denies: fever, chills Cardiovascular: Denies: chest pain Respiratory: Reports: cough, dyspnea, sputum production Gastrointestinal: Denies: abdominal pain, nausea, vomiting Psychiatric: Reports: anxiety Past Medical History - Past Medical History Attestation: Yes The following information was validated with the patient. Source: patient Medical history: Reports: COPD, diabetes, hyperlipidemia, hypertension, thyroid disease, other Surgical history: Reports: cholecystectomy, other Psychiatric history: Reports: anxiety, depression - Social History Smoking Status: Current every day smoker Smokeless Tobacco Status: No Alcohol use: Reports: none Drug use: Reports: none Physical Exam - General Limitations: no limitations General appearance: alert, anxious, in distress (Moderate respiratory distress) - Head Head exam: atraumatic, normocephalic, normal inspection - Eye Eye exam: Present: normal appearance - ENT ENT exam: normal exam - Neck Neck exam: Present: normal inspection - Chest Chest inspection: Present: normal inspection, symmetric chest wall rise - Respiratory Respiratory exam: Present: respiratory distress, accessory muscle use, other (Poor air movement throughout) - Cardiovascular Cardiovascular exam: Present: normal rhythm, tachycardia, normal heart sounds - Abdominal Exam Abdominal exam: Present: soft, Non-Tender. Absent: tenderness, distention, rigidity - Extremities Exam Extremities exam: Present: normal inspection, full ROM - Expanded Upper Extremity Exam Shoulder exam: Present: normal inspection, full ROM Arm exam: Present: normal inspection, full ROM Elbow exam: Present: normal inspection, full ROM Forearm/Wrist exam: Present: normal inspection, full ROM Hand exam: Present: normal inspection, full ROM - Expanded Lower Extremity Exam Hip/Pelvis exam: Present: normal inspection, full ROM Upper leg exam: Present: normal inspection, full ROM Knee exam: Present: normal inspection, full ROM Lower leg exam: Present: normal inspection, full ROM, other (Lymphedema of the lower extremities) Ankle exam: Present: normal inspection, full ROM Foot/toe exam: Present: normal inspection, full ROM - Skin Skin exam: Present: warm, dry Course Course Narrative: Patient seen and examined at time of arrival. She is in moderate respiratory distress. Respiratory therapy paged. Plan for DuoNeb treatments, Solu-Medrol, EKG, chest x-ray, labs, BiPAP and Ativan for anxiety. She will require admission for COPD exacerbation. - Reevaluation(s) Reevaluation #1: Patient had decompensation in her mental status here. We check an ABG demonstrating hypercapnic respiratory acidosis. Given her failure on BiPAP patient intubated. Vital Signs Temperature 98.3 F 10/12/18 19:03 Pulse Rate 98 10/12/18 19:03 Respiratory Rate 28 10/12/18 19:03 Blood Pressure 187/100 10/12/18 19:03 O2 Sat by Pulse Oximetry 100 10/12/18 19:03 Temperature 98.3 F 10/12/18 19:03 Pulse Rate 80 10/12/18 21:17 Respiratory Rate 18 10/12/18 21:17 Blood Pressure 147/76 10/12/18 21:17 O2 Sat by Pulse Oximetry 90 10/12/18 21:17 Oxygen Delivery Oxygen Delivery Ventilator Procedures - Intubation sedative: Etomidate Mg Given: 20 paralytic: Rocuronium Mg Given: 100 Laryngoscope: Gallo ET Tube Size: 7.5 ET Tube Uncuffed: No Tube Secured Depth (cm): 25 Tube Secured Location: lips Tube Placement Confirmation: visualized tube passing through cords, equal breath sounds bilaterally, no breath sounds over epigastrium, confirmation by capnometry Patient Tolerated Procedure: well Intubation Complications: none Shortness of Breath/Dyspnea - [facility] Narrative Medical decision making narrative: 73-year-old female presenting in respiratory distress secondary to COPD exacerbation. She had worsening respiratory and mental status here necessitati ng intubation after felt BiPAP management. Labs reviewed and grossly unremarkable. Patient given Levaquin for COPD exacerbation. Admitted to the intensive care unit for hypercapnic respiratory failure. - Lab Data Lab results reviewed: Yes I reviewed the patient's lab results. Result diagrams: 10/12/18 19:25 10/12/18 19:25 Lab Results 10/12/18 10/12/18 10/12/18 Range/Units 19:25 19:25 19:25 WBC 9.4 (4.3-11.1) K/mcL RBC 3.83 (3.82-4.97) M/mcL Hgb 11.8 (11.5-15.4) g/dL Hct 37.5 (35.3-44.9) % MCV 97.9 (83.0-100.0) fL MCH 30.8 (28.0-33.3) pg MCHC 31.5 L (31.6-35.5) g/dL RDW 13.3 (11.5-14.5) % Plt Count 140 (140-400) K/mcL MPV 10.2 (9.4-12.4) fL Immature Gran % 1.3 (0-4) % Seg Neutrophils % 84.3 % Lymphocytes % 6.4 % Monocytes % 6.0 % Eosinophils % 1.6 % Basophils % 0.4 % Neutrophils # 7.9 (1.6-8.9) K/mcL Lymphocytes # 0.6 (0.6-4.6) K/mcL Monocytes # 0.6 (0.0-1.3) K/mcL Eosinophils # 0.2 (0.0-0.6) K/mcL Basophils # 0.0 (0.0-0.2) K/mcL PT 11.6 (9.4-12.1) Seconds INR 1.0 APTT 32.5 (26.0-36.0) Seconds ABG pH (7.32-7.45) pH Units ABG pCO2 (35-45) mmHg ABG pO2 (85-104) mmHg ABG HCO3 (21-27) mEq/L ABG Total CO2 (20-26) mEq/L ABG O2 Saturation (95-98) % ABG Base Excess (-2 to 3) mEq/L O2 Delivery Device Inspired O2 (1-15=lpm [id number]=%) Sodium 144 (136-145) mEq/L Potassium 4.1 (3.5-5.1) mEq/L Chloride 102 (98-107) mEq/L Carbon Dioxide 38 H (23-29) mEq/L BUN 17 (8-23) mg/dL Creatinine 0.82 (0.60-1.20) mg/dL Est GFR ( Amer) > 60 (> 60) Est GFR (Non-Af Amer) > 60 (> 60) BUN/Creatinine Ratio 21 (6-26) Glucose 134 H (70-105) mg/dL Calculated Osmolality 302 H (280-300) Lactic Acid (0.5-2.2) mmol/L Calcium 9.5 (8.6-10.3) mg/dL Troponin I < 0.03 (< 0.04) ng/mL B-Natriuretic Peptide (Less than 100) pg/mL 10/12/18 10/12/18 10/12/18 Range/Units 19:25 19:25 20:00 WBC (4.3-11.1) K/mcL RBC (3.82-4.97) M/mcL Hgb (11.5-15.4) g/dL Hct (35.3-44.9) % MCV (83.0-100.0) fL MCH (28.0-33.3) pg MCHC (31.6-35.5) g/dL RDW (11.5-14.5) % Plt Count (140-400) K/mcL MPV (9.4-12.4) fL Immature Gran % (0-4) % Seg Neutrophils % % Lymphocytes % % Monocytes % % Eosinophils % % Basophils % % Neutrophils # (1.6-8.9) K/mcL Lymphocytes # (0.6-4.6) K/mcL Monocytes # (0.0-1.3) K/mcL Eosinophils # (0.0-0.6) K/mcL Basophils # (0.0-0.2) K/mcL PT (9.4-12.1) Seconds INR APTT (26.0-36.0) Seconds ABG pH 7.07 L* (7.32-7.45) pH Units ABG pCO2 143 H* (35-45) mmHg ABG pO2 96 (85-104) mmHg ABG HCO3 41 H (21-27) mEq/L ABG Total CO2 45 H (20-26) mEq/L ABG O2 Saturation 92 L (95-98) % ABG Base Excess 6 H (-2 to 3) mEq/L O2 Delivery Device AeroMask Inspired O2 10.0 (1-15=lpm [id number]=%) Sodium (136-145) mEq/L Potassium (3.5-5.1) mEq/L Chloride (98-107) mEq/L Carbon Dioxide (23-29) mEq/L BUN (8-23) mg/dL Creatinine (0.60-1.20) mg/dL Est GFR ( Amer) (> 60) Est GFR (Non-Af Amer) (> 60) BUN/Creatinine Ratio (6-26) Glucose (70-105) mg/dL Calculated Osmolality (280-300) Lactic Acid 0.6 (0.5-2.2) mmol/L Calcium (8.6-10.3) mg/dL Troponin I (< 0.04) ng/mL B-Natriuretic Peptide 341 H (Less than 100) pg/mL - Radiology Data Radiology results reviewed: Yes I reviewed the patient's radiology results. Chest X-Ray 10/12/18 18:59 IMPRESSION: 1. Stable cardiomegaly 2. Diffuse reticular changes at the lung bases could represent an atypical pneumonia or possibly interstitial lung disease D/ / Bora Cabrera MD / Bora Cabrera MD Interpreting Provider: Bora Cabrera MD Chest X-Ray 10/12/18 20:27 IMPRESSION: No acute process. Endotracheal tube in satisfactory position Stable cardiomegaly D/ / Bora Cabrera MD / Bora Cabrera MD Interpreting Provider: Bora Cabrera MD - EKG Data EKG attestation: Yes I reviewed and interpreted this EKG. EKG results narrative: EKG demonstrates sinus rhythm with rate of 95 beats or minute. Normal axis. Normal intervals. Normal R-wave progression. No gross ST elevations or depressions. No acute ischemic findings. S.B.A.R. - S.B.A.R. Situation: Demographics, MOA Background: Presenting Complaint, Relevant PMH, Meds, & Allergies Assessment: Course and respsone to treatment, Exam Concerns, Patient/Family Expectation, Pertinant Lab Results Recommendation: Barrier(s) to disposition, Recommendation based on pending studies, treatments, or consults S.B.A.R. Report Given to: Dr. Chadwick TinocoBMalathiATammy Repor Time: 21:12 Attestation Statement - Attestation Attestation: I, Darren Mora DO, examined this patient [id number] and my medical decision-making was reviewed with Dr. Carmelo Jimenez, Resident Physician. I agree with the documented findings, disposition and treatment plan as described except to the extent set forth below. Please see my progress notes for details.
[2018-10-12 19:43] LABS: Basophils % 0.4 %; Eosinophils # 0.2 K/mcL (0.0-0.6); Eosinophils % 1.6 %; Hematocrit 37.5 % (35.3-44.9); Hemoglobin 11.8 g/dL (11.5-15.4); Immature Granulocytes % 1.3 % (0-4); Lymphocytes # 0.6 K/mcL (0.6-4.6); Lymphocytes % 6.4 %; Mean Corpuscular HGB Conc 31.5 g/dL (31.6-35.5); Mean Corpuscular Hemoglobin 30.8 pg (28.0-33.3); Mean Corpuscular Volume 97.9 fL (83.0-100.0); Mean Platelet Volume 10.2 fL (9.4-12.4); Monocytes # 0.6 K/mcL (0.0-1.3); Neutrophils # 7.9 K/mcL (1.6-8.9); Platelet Count 140 K/mcL (140-400); Red Blood Count 3.83 M/mcL (3.82-4.97); Red Cell Distribution Width 13.3 % (11.5-14.5); Segmented Neutrophils % 84.3 %
[2018-10-12 20:00] LABS: Prothrombin Time 11.6 Seconds (9.4-12.1)
--- NOTE | 2018-10-12 20:01 | Emergency Department Note ---
Disposition Clinical Impression: COPD exacerbation, Hypercapnia, Respiratory acidosis, Altered mental status Disposition: Admitted As Inpatient Condition: Critical Referrals: NONE,PCP [Primary Care Provider] - Forms: ED Satisfaction Letter Time of Disposition: 21:33 General Adult HPI - General Chief complaint: ED Shortness of Breath/Dyspnea Stated complaint: CALEB Time Seen by Provider: 10/12/18 18:57 Source: EMS Mode of arrival: EMS Limitations: no limitations - History of Present Illness Pain Scale: 10 - Related Data Home Medications Medication Instructions Recorded Confirmed Albuterol Sulfate [Ventolin Hfa] 2 puff IH QID PRN 11/16/16 01/02/18 Aspirin Enteric Coated [Aspirin EC] 325 mg PO DAILY 11/16/16 01/02/18 Atenolol [Tenormin] 25 mg PO DAILY 11/16/16 01/02/18 Folic Acid 1 mg PO DAILY 11/16/16 01/02/18 Gabapentin [Neurontin] 300 mg PO BID 11/16/16 01/02/18 Ipratropium/Albuterol Neb [Duoneb] 3 ml IH QID 11/16/16 01/02/18 Linagliptin [Tradjenta] 5 mg PO DAILY 11/16/16 01/02/18 Lovastatin [Mevacor] 20 mg PO QPM 11/16/16 01/02/18 Metformin HCl [Metformin ER 1,500 mg PO DAILY 11/16/16 01/02/18 Gastric] Methotrexate [Otrexup] 12.5 mg PO TU 11/16/16 01/02/18 Potassium Chloride [Klor-Con 10] 10 meq PO BID 11/16/16 01/02/18 amLODIPine [Norvasc] 5 mg PO DAILY 11/16/16 01/02/18 Alendronate Sodium [Fosamax] 70 mg PO TU 12/31/16 01/02/18 Cholecalciferol (Vitamin D3) 50,000 unit PO TU 01/21/17 01/02/18 [Vitamin D3] Oxygen 4 l NS AD 01/21/17 01/02/18 Roflumilast [Daliresp] 500 mcg PO DAILY 01/21/17 01/02/18 lamoTRIgine [Lamotrigine] 100 mg PO DAILY 01/21/17 01/02/18 Escitalopram [Lexapro] 10 mg PO DAILY 08/31/17 01/02/18 Guaifenesin [Guaifenesin ER] 600 mg PO DAILY 08/31/17 01/02/18 Furosemide [Lasix] 20 mg PO DAILY 01/02/18 01/02/18 Levothyroxine Sodium [Levo-T] 200 mcg PO QAM 01/02/18 01/02/18 Losartan Potassium [Cozaar] 100 mg PO DAILY 01/02/18 01/02/18 Previous Rx's Medication Instructions Recorded Nicotine Patch [Nicoderm] 14 mg TD DAILY #30 patch.td24 09/03/17 Docusate [Colace] 100 mg PO BID #60 capsule 01/11/18 Polyethylene Glycol 3350 [MiraLAX] 17 gm PO DAILY #30 powd.pack 01/11/18 predniSONE [PredniSONE] 40 mg PO DAILY #5 tablet 01/11/18 Allergies Allergy/AdvReac Type Severity Reaction Status Date / Time No Known Allergies Allergy Verified 01/21/17 03:23 Constitutional: Denies: fever, chills Cardiovascular: Denies: chest pain Respiratory: Reports: cough, dyspnea, sputum production Gastrointestinal: Denies: abdominal pain, nausea, vomiting Psychiatric: Reports: anxiety Past Medical History - Past Medical History Medical history: Reports: COPD, diabetes, hyperlipidemia, hypertension, thyroid disease, other Surgical history: Reports: cholecystectomy, other Psychiatric history: Reports: anxiety, depression - Social History Smoking Status: Current every day smoker Smokeless Tobacco Status: No Alcohol use: Reports: none Drug use: Reports: none Physical Exam - General Limitations: no limitations General appearance: alert, anxious, in distress (Moderate respiratory distress) Course Vital Signs Temperature 98.3 F 10/12/18 19:03 Pulse Rate 98 10/12/18 19:03 Respiratory Rate 28 10/12/18 19:03 Blood Pressure 187/100 10/12/18 19:03 O2 Sat by Pulse Oximetry 100 10/12/18 19:03 Temperature 98.3 F 10/12/18 19:03 Pulse Rate 91 10/12/18 20:19 Respiratory Rate 32 10/12/18 20:19 Blood Pressure 153/72 10/12/18 20:19 O2 Sat by Pulse Oximetry 100 10/12/18 20:19 Oxygen Delivery Oxygen Delivery CPAP Mask O2 Medical Decision Making - Lab Data Result diagrams: 10/12/18 19:25 02/14/19 19:25 Lab Results 10/12/18 10/12/18 10/12/18 Range/Units 19:25 19:25 19:25 WBC 9.4 (4.3-11.1) K/mcL RBC 3.83 (3.82-4.97) M/mcL Hgb 11.8 (11.5-15.4) g/dL Hct 37.5 (35.3-44.9) % MCV 97.9 (83.0-100.0) fL MCH 30.8 (28.0-33.3) pg MCHC 31.5 L (31.6-35.5) g/dL RDW 13.3 (11.5-14.5) % Plt Count 140 (140-400) K/mcL MPV 10.2 (9.4-12.4) fL Immature Gran % 1.3 (0-4) % Seg Neutrophils % 84.3 % Lymphocytes % 6.4 % Monocytes % 6.0 % Eosinophils % 1.6 % Basophils % 0.4 % Neutrophils # 7.9 (1.6-8.9) K/mcL Lymphocytes # 0.6 (0.6-4.6) K/mcL Monocytes # 0.6 (0.0-1.3) K/mcL Eosinophils # 0.2 (0.0-0.6) K/mcL Basophils # 0.0 (0.0-0.2) K/mcL PT 11.6 (9.4-12.1) Seconds INR 1.0 APTT 32.5 (26.0-36.0) Seconds ABG pH (7.32-7.45) pH Units ABG pCO2 (35-45) mmHg ABG pO2 (85-104) mmHg ABG HCO3 (21-27) mEq/L ABG Total CO2 (20-26) mEq/L ABG O2 Saturation (95-98) % ABG Base Excess (-2 to 3) mEq/L O2 Delivery Device Inspired O2 (1-15=lpm [id number]=%) Sodium 144 (136-145) mEq/L Potassium 4.1 (3.5-5.1) mEq/L Chloride 102 (98-107) mEq/L Carbon Dioxide 38 H (23-29) mEq/L BUN 17 (8-23) mg/dL Creatinine 0.82 (0.60-1.20) mg/dL Est GFR ( Amer) > 60 (> 60) Est GFR (Non-Af Amer) > 60 (> 60) BUN/Creatinine Ratio 21 (6-26) Glucose 134 H (70-105) mg/dL Calculated Osmolality 302 H (280-300) Lactic Acid (0.5-2.2) mmol/L Calcium 9.5 (8.6-10.3) mg/dL Troponin I < 0.03 (< 0.04) ng/mL B-Natriuretic Peptide (Less than 100) pg/mL 10/12/18 10/12/18 10/12/18 Range/Units 19:25 19:25 20:00 WBC (4.3-11.1) K/mcL RBC (3.82-4.97) M/mcL Hgb (11.5-15.4) g/dL Hct (35.3-44.9) % MCV (83.0-100.0) fL MCH (28.0-33.3) pg MCHC (31.6-35.5) g/dL RDW (11.5-14.5) % Plt Count (140-400) K/mcL MPV (9.4-12.4) fL Immature Gran % (0-4) % Seg Neutrophils % % Lymphocytes % % Monocytes % % Eosinophils % % Basophils % % Neutrophils # (1.6-8.9) K/mcL Lymphocytes # (0.6-4.6) K/mcL Monocytes # (0.0-1.3) K/mcL Eosinophils # (0.0-0.6) K/mcL Basophils # (0.0-0.2) K/mcL PT (9.4-12.1) Seconds INR APTT (26.0-36.0) Seconds ABG pH 7.07 L* (7.32-7.45) pH Units ABG pCO2 143 H* (35-45) mmHg ABG pO2 96 (85-104) mmHg ABG HCO3 41 H (21-27) mEq/L ABG Total CO2 45 H (20-26) mEq/L ABG O2 Saturation 92 L (95-98) % ABG Base Excess 6 H (-2 to 3) mEq/L O2 Delivery Device AeroMask Inspired O2 10.0 (1-15=lpm [id number]=%) Sodium (136-145) mEq/L Potassium (3.5-5.1) mEq/L Chloride (98-107) mEq/L Carbon Dioxide (23-29) mEq/L BUN (8-23) mg/dL Creatinine (0.60-1.20) mg/dL Est GFR ( Amer) (> 60) Est GFR (Non-Af Amer) (> 60) BUN/Creatinine Ratio (6-26) Glucose (70-105) mg/dL Calculated Osmolality (280-300) Lactic Acid 0.6 (0.5-2.2) mmol/L Calcium (8.6-10.3) mg/dL Troponin I (< 0.04) ng/mL B-Natriuretic Peptide 341 H (Less than 100) pg/mL Critical Care Time Critical Care Time: Yes Total Critical Care Time: 45 Attestation: Critical care performed: Time is exclusive of separately billable procedures. Time includes: direct patient care, patient reassessment, coordination of patient care, interpretation of data (laboratory data, radiology data, and respiratory data), review of patient's medical records, medical consultation and documentation of patient care. Procedures included in critical care time: Procedures excluded from critical care time: Attestation Statement - Attestation Attestation: I, Darren Mora DO, examined this patient [id number] and my medical decision-making was reviewed with Dr. Carmelo Jimenez, Resident Physician. I agree with the documented findings, disposition and treatment plan as described except to the extent set forth below. Please see my progress notes for details. 73-year-old female presents from home by EMS for evaluation of significant shortness of breath. Patient is very anxious on arrival. Patient typically uses 2 L of oxygen by nasal cannula 24 hours a day. She has known COPD and emphysema. Denies any recent fevers or chills. Currently denying chest pain. Patient does have increased work of breathing. Denies any nausea vomiting or diarrhea. She has not traveled outside the country. She has not had any trauma or injuries. Denies any medication changes. Vital signs in transport were stable with a nonrebreather mask and placed. Patient has significant work of breathing. She has diminished breath sounds bilaterally with no air movement. Heart is regular on arrival with intermittent runs of tachycardia. Abdomen is soft nontender nondistended. Patient does have significantly swollen bilateral lower extremities are getting worse according to her. No signs of skin lesions or rashes. Patient has what appears to be COPD exacerbation but other etiology will be addressed and reviewed. Patient is otherwise clinically stable but does require medical intervention. CBC chemistry BMP troponin EKG chest x-ray will be resulted along with breathing treatments steroids and BiPAP to be applied. Nausea medication will be given fluids will be started if needed and anxiety medication will be given to help with symptomatic control. See detailed documentation of the physical exam, medical intervention, medical decision- making and disposition in the resident physician's note. No critical care applied the patient's treatment course at this time. 1999 ABG shows a CO2 of 143 along with a pH of 7.01. Patient is post on the BiPAP at this time and she does not tolerate or is any decline in mental status she will be intubated. The remainder the workup is to be completed at this time. 2024 Patient was not able to fall commands and was very somnolent. At this time determined that intubation was most appropriate way of managing the patient's airway. Intubation was completed by the resident physician under my direct supervision. The laryngoscopy was utilized and one attempt was made with good visualization of the ET tube passing through the cords. 20 mg of etomidate and 100 mg of Roxicodone Amer utilized without any issue. Post chest x-ray was ordered. 2114 Repeat ABG shows a pH of 7.3. His appear to be a venous blood draw at this time but the CO2 is 71 and the O2 is 41 which shows significant resolution of the hypercapnic presentation. Patient left on the ventilator and admitted to the hospital. Hospitalist reviewed the case and no other concerns at least initially at this time. Patient will be monitored here in the emergency department to the admission process is completed.
[2018-10-12 20:02] LABS: Activated Partial Thrombo Time 32.5 Seconds (26.0-36.0)
[2018-10-12 20:06] LABS: BUN/Creatinine Ratio 21 (6-26); Blood Urea Nitrogen 17 mg/dL (8-23); Calcium 9.5 mg/dL (8.6-10.3); Carbon Dioxide 38 mEq/L (23-29); Chloride 102 mEq/L (98-107); Glucose 134 mg/dL (70-105); Osmolality,Calculated 302 (280-300); Potassium 4.1 mEq/L (3.5-5.1); Sodium 144 mEq/L (136-145); Troponin I < 0.03 ng/mL (< 0.04); eGFR For Non-African Americans > 60 (> 60)
[2018-10-12 20:10] LABS: ABG Base Excess 6 mEq/L (-2 to 3); ABG HCO3 41 mEq/L (21-27); ABG Oxygen Saturation 92 % (95-98); ABG PCO2 143 mmHg (35-45); ABG PH 7.07 pH Units (7.32-7.45); ABG PO2 96 mmHg (85-104); ABG TCO2 45 mEq/L (20-26)
[2018-10-12] MEDS ORDERED: 0.9 % Sodium Chloride 1,000 ML ONE ×2 (20:22→22:47)
[2018-10-12] MEDS ORDERED: Levofloxacin 750 MG/150 ML 750 MG/150 ML BAG IVPB ONE (20:29)
[2018-10-12] MEDS ORDERED: Propofol 500 MG/50 ML INFUS..BTL ONE (20:31)
--- NOTE | 2018-10-12 20:38 | Internal Med History&Physical ---
Addendum entered and electronically signed by Tong Doty MD 10/13/18 00:06: CCT=60mins Original Note: <Keon Pablo S - Last Filed: 10/12/18 22:29> Date of Encounter: 10/12/18 Time of Encounter: 20:52 Internal Medicine - H&P: HPI Chief complaint: SOB Admitted From: Home Plans for Post Hospital Care: Home History of present illness: Ms. Jhaveri is a 73 year old female with PMH COPD on 2 L, CHF, depression, hypothyroidism, T2DM, tobacco abuse , and osteoporosis is here for shortness of breath. She is seen in the ER after intubation and all information is gathered from ER notes and ER resident. She presented to the ER in acute respiratory distress x 4 days according to notes. She had increasing green sputum production and cough. EMS was called and she was found to be in respiraotyr distress and got [address] to the ER. No other information is able to be gathered. ROS is unobtainable due to intubation. She uses home 2 L oxygen. She is a chronic tobacco smoker. In the ER she was intubated and given a dose of steroid and levofloxacin. She will be admitted to the ICU for further evaluation and management. Past Med Surg Social Fam HX - Past Medical History Medical history: COPD, diabetes, hyperlipidemia, hypertension, thyroid disease, other Additional medical history: Patient reports an irregual heart rate but doesnt remember what it was called. CVA (2015), Psychiatric history: anxiety, depression - Past Surgical History Surgical History: cholecystectomy, other Additional surgical history: Throat biopsy. - Social History Smoking Status: Current every day smoker Smokeless Tobacco Status: No Alcohol use: none Drug use: none - Family History Father Living Status: Hx Family Cardiac Disorders: Yes (Stroke,) Hx Family Respiratory Disorders: Yes (COPD) Hx Family Endocrine Disorder: Yes (Diabetes) Mother Living Status: Hx Family Cardiac Disorders: Yes ([place]) Hx Family Respiratory Disorders: Yes (Lung CA,) Hx Family Cancer: Yes (Lung) Hx Family GI Disorders: Yes (Ulcers) Hx Family Endocrine Disorder: Yes (Hypothyroidism, diabetes) Hx Family Neuromuscular Disorders: No Hx Family Neurologic Disorders: No Hx Family HEENT Disorders: No Hx Family Autoimmune Disorders: No Internal Medicine - H&P: Meds RX: Albuterol Sulfate [Ventolin Hfa] 2 puff IH QID PRN 11/16/16 [History] RX: Aspirin Enteric Coated [Aspirin EC] 325 mg PO DAILY 11/16/16 [History] RX: Atenolol [Tenormin] 25 mg PO DAILY 11/16/16 [History] RX: Folic Acid 1 mg PO DAILY 11/16/16 [History] RX: Gabapentin [Neurontin] 300 mg PO BID 11/16/16 [History] RX: Ipratropium/Albuterol Neb [Duoneb] 3 ml IH QID 11/16/16 [History] RX: Linagliptin [Tradjenta] 5 mg PO DAILY 11/16/16 [History] RX: Lovastatin [Mevacor] 20 mg PO QPM 11/16/16 [History] RX: Metformin HCl [Metformin ER Gastric] 1,500 mg PO DAILY 11/16/16 [History] RX: Methotrexate [Otrexup] 12.5 mg PO TU 11/16/16 [History] RX: Potassium Chloride [Klor-Con 10] 10 meq PO BID 11/16/16 [History] RX: amLODIPine [Norvasc] 5 mg PO DAILY 11/16/16 [History] RX: Alendronate Sodium [Fosamax] 70 mg PO TU 12/31/16 [History] RX: Cholecalciferol (Vitamin D3) [Vitamin D3] 50,000 unit PO TU 01/21/17 [History] RX: Oxygen 4 l NS AD 01/21/17 [History] RX: Roflumilast [Daliresp] 500 mcg PO DAILY 01/21/17 [History] RX: lamoTRIgine [Lamotrigine] 100 mg PO DAILY 01/21/17 [History] RX: Escitalopram [Lexapro] 10 mg PO DAILY 08/31/17 [History] RX: Guaifenesin [Guaifenesin ER] 600 mg PO DAILY 08/31/17 [History] RX: Nicotine Patch [Nicoderm] 14 mg TD DAILY #30 patch.td24 09/03/17 [Rx] RX: Furosemide [Lasix] 20 mg PO DAILY 01/02/18 [History] RX: Levothyroxine Sodium [Levo-T] 200 mcg PO QAM 01/02/18 [History] RX: Losartan Potassium [Cozaar] 100 mg PO DAILY 01/02/18 [History] RX: Docusate [Colace] 100 mg PO BID #60 capsule 01/11/18 [Rx] RX: Polyethylene Glycol 3350 [MiraLAX] 17 gm PO DAILY #30 powd.pack 01/11/18 [Rx] RX: predniSONE [PredniSONE] 40 mg PO DAILY #5 tablet 01/11/18 [Rx] Allergy/AdvReac Type Severity Reaction Status Date / Time No Known Allergies Allergy Verified 01/21/17 03:23 ROS unobtainable: due to mental status All Systems PM: A 10-system review of systems was performed and is negative for pertinent findings except as documented above in the HPI. - Constitutional Vitals: Temp Pulse Resp BP Pulse Ox 98.3 F 110 16 129/67 100 10/12/18 19:03 10/12/18 20:29 10/12/18 20:29 10/12/18 20:29 10/12/18 20:29 General appearance: Present: A&O X 0, obese. Absent: answers questions appropriately Exam: x - Head Head exam: Present: atraumatic, normocephalic - Eye Eye exam: Present: sclera anicteric - ENT ENT exam: Present: mucous membranes dry - Neck Neck exam general surgery: Present: trachea midline - Respiratory Respiratory exam: Present: decreased breath sounds, prolonged expiratory phase - Expanded Respiratory Exam Location: decreased breath sounds: Left, Right, Upper, Lower - Cardiovascular Cardiovascular exam: Present: +S1, +S2, tachycardia. Absent: clicks, gallop, J VD, rubs - GI/Abdominal GI/Abdominal exam: Present: soft, no peritoneal signs. Absent: distended, firm, guarding, tenderness - Extremities Exam Extremities exam: Present: pedal edema Additional comments: bilateral venous stasis changes - Neurological Exam Additional comments: unable to assess due to mental status - Psychiatric Additional comments: unable to assess due to mental status - Skin Skin exam: Present: dry, intact, warm Internal Med - H&P Results - Labs CBC & Chem 7: 10/12/18 19:25 10/12/18 19:25 Labs: Short CBC 10/12/18 Range/Units 19:25 WBC 9.4 (4.3-11.1) K/mcL Hgb 11.8 (11.5-15.4) g/dL Hct 37.5 (35.3-44.9) % Plt Count 140 (140-400) K/mcL Neutrophils # 7.9 (1.6-8.9) K/mcL BMP 10/12/18 19:25 Sodium 144 Potassium 4.1 Chloride 102 Carbon Dioxide 38 H BUN 17 Creatinine 0.82 Glucose 134 H Calcium 9.5 Cardiac Enzymes 10/12/18 Range/Units 19:25 Troponin I < 0.03 (< 0.04) ng/mL - ABG Interpretation ABG results: 10/12/18 20:00 ABG pH 7.07 L* ABG pCO2 143 H* ABG pO2 96 ABG HCO3 41 H ABG Total CO2 45 H ABG O2 Saturation 92 L ABG Base Excess 6 H - Impressions ITS Impressions Chest X-Ray 10/12/18 18:59 IMPRESSION: 1. Stable cardiomegaly 2. Diffuse reticular changes at the lung bases could represent an atypical pneumonia or possibly interstitial lung disease D/ / Bora Cabrera MD / Bora Cabrera MD Interpreting Provider: Bora Cabrera MD - Assessment and plan (1) Acute exacerbation of chronic obstructive airways disease Current Visit: No Status: Acute Assessment and plan: Pt with increasing SOB from baseline, requiring increasing amounts of oxygen - pt intubated when I evaluated her - failed BiPAP and was intubated Initial ABG showed pH 7.07, CO2 143, HCO3 41 Repeat ABG at 21:26 showed pH 7.31, CO2 74, HCO3 37 CXR showed stable cardiomegaly, diffuse reticular changes at the lung bases, atypical pneumonia vs interstitial lung disease Repeat CXR showed endotracheal tube in correct position Met sepsis criteria for HR 91, RR 32 on admission, has since resolved - pt remains stable BP, MAP >65 Vent settings: TV 500, PEEP 5, FiO2 40, RR 20 Plan: - IV steroids 40 q8hr - azithromycin and rocephin q24hr, got 1x dose of levaquin in the ER - blood cx pending - strep pneumo, mycoplasma and legionella antigens pending - ABG pending for 0400 - CBC and BMP with AM labs - consult for pulmonology placed for vent management - lorazepam q6h4 prn agitation - on propofol drip - MRSA screen pending - admission to ICU for further evaluate and management, if pt becomes hypotensive with MAP <65 we will plan to place central line (2) PNA (pneumonia) Current Visit: No Status: Acute Assessment and plan: Pt with change in respiratory status, came to ER in active respiratory distress - had to be intubated by ER physician CXR from ER showed - Stable cardiomegaly - Diffuse reticular changes at the lung bases could represent an atypical pneumonia or possibly interstitial lung disease See plan as above for AECOPD. Qualifiers: Pneumonia type: due to unspecified organism Laterality: right Lung location: lower lobe of lung Qualified Code(s): J18.1 - Lobar pneumonia, unspecified organism (3) Acute respiratory failure with hypoxia and hypercapnia Current Visit: No Status: Acute Assessment and plan: See plan as above. (4) Diabetes mellitus Current Visit: No Status: Chronic Assessment and plan: Has hx of T2DM - chronic On admission glucose 134 Plan: - achs glucose checks - LDSS - hold home DM rx Qualifiers: Diabetes mellitus type: type 2 Diabetes mellitus correction insulin use: without correction use Diabetes mellitus complication status: with hyperg lycemia Qualified Code(s): E11.65 - Type 2 diabetes mellitus with hypergl ycemia (5) DVT prophylaxis Current Visit: No Status: Acute Assessment and plan: sq heparin (6) Hypertension Current Visit: No Status: Chronic Assessment and plan: BP 158/95 - chronic Plan: - holding home PO rx - will add lopressor ivp 10mg for SBP >160 Qualifiers: Hypertension type: essential hypertension Qualified Code(s): I10 - Essential (primary) hypertension (7) KASIE (obstructive sleep apnea) Current Visit: No Status: Chronic Assessment and plan: Chronic. (8) Hypothyroidism Current Visit: No Status: Chronic Assessment and plan: On levothyroxine, chronic. Qualifiers: Hypothyroidism type: unspecified Qualified Code(s): E03.9 - Hypothyroidism, unspecified (9) Dyspnea Current Visit: No Status: Acute Assessment and plan: Secondary to AECOPD. Qualifiers: Dyspnea type: shortness of breath Qualified Code(s): R06.02 - Shortness of breath (10) Diastolic heart failure Current Visit: Yes Status: Acute Assessment and plan: Exacebration of underlying HF - troponin negative, BNP 341 Last ECHO completed in December 2017 - showed no pHTN, LVEF 65-70% - mild LV diastolic dysfxnnn - no significant valvular dysfxn Pt appears euvolemic on examination Plan: - takes home PO lasix, will change this to IVP lasix 20mg daily Qualifiers: Heart failure chronicity: acute on chronic Qualified Code(s): I50.33 - Acute on chronic diastolic (congestive) heart failure - Time Spent With Patient Total time spent is greater than 50% in coordination of care (as documented) at patient's floor/unit and/or counseling patient: less than 15 minutes <Tong Doty - Last Filed: 10/13/18 00:04> Date of Encounter: 10/12/18 All Systems PM: A 10-system review of systems was performed and is negative for pertinent findings except as documented above in the HPI. - Constitutional Vitals: Temp Pulse Resp BP Pulse Ox 98.3 F 80 18 147/76 90 10/12/18 19:03 10/12/18 21:17 10/12/18 21:17 10/12/18 21:17 10/12/18 21:17 Internal Med - H&P Results - Labs CBC & Chem 7: 10/12/18 19:25 10/12/18 19:25 Labs: Short CBC 10/12/18 Range/Units 19:25 WBC 9.4 (4.3-11.1) K/mcL Hgb 11.8 (11.5-15.4) g/dL Hct 37.5 (35.3-44.9) % Plt Count 140 (140-400) K/mcL Neutrophils # 7.9 (1.6-8.9) K/mcL BMP 10/12/18 19:25 Sodium 144 Potassium 4.1 Chloride 102 Carbon Dioxide 38 H BUN 17 Creatinine 0.82 Glucose 134 H Calcium 9.5 Cardiac Enzymes 10/12/18 Range/Units 19:25 Troponin I < 0.03 (< 0.04) ng/mL Urine 10/12/18 Range/Units 21:10 Urine Color Yellow (Yellow) Urine Clarity Clear (Clear) Urine pH 6.0 (5.0-8.0) pH Units Ur Specific [place] 1.019 (1.010-1.025) Urine Protein 100 H (Neg-Trace) mg/dL Urine Glucose (UA) Normal (Normal) mg/dL - ABG Interpretation ABG results: 10/12/18 10/12/18 20:00 21:26 ABG pH 7.07 L* 7.31 L D ABG pCO2 143 H* 74 H* D ABG pO2 96 42 L* D ABG HCO3 41 H 37 H ABG Total CO2 45 H 39 H ABG O2 Saturation 92 L 69 L ABG Base Excess 6 H 8 H - Impressions ITS Impressions Chest X-Ray 10/12/18 18:59 IMPRESSION: 1. Stable cardiomegaly 2. Diffuse reticular changes at the lung bases could represent an atypical pneumonia or possibly interstitial lung disease D/ / Bora Cabrera MD / Bora Cabrera MD Interpreting Provider: Bora Cabrera MD Chest X-Ray 10/12/18 20:27 IMPRESSION: No acute process. Endotracheal tube in satisfactory position Stable cardiomegaly D/ / Bora Cabrera MD / Bora Cabrera MD Interpreting Provider: Bora Cabrera MD - Time Spent With Patient Total time spent is greater than 50% in coordination of care (as documented) at patient's floor/unit and/or counseling patient: Greater than 35 minutes - Attending Attestation I performed a history and physical exam of the patient and discussed management with the resident. I reviewed the resident's note and agree with the documented findings and plan of care. Lilly Jhaveri is a 73 year old woman with severe obstructive ventilatory impairment without significant bronchodilator response based on her spirometry reviewed from 2016 seen to have severe gas exchange abnormalities with a DLCO 25% of predicted and increased residual volumes suggesting air trapping who presents with acute hypercarbic respiratory failure with a PCO2 at 143 and pH of 7.07. She required intubation due to distress and will be admitted to ICU for further. Physical exam remarkable for rhonchorous breath sounds bilaterally, nondistended and soft abdomen and 3+ pitting edema on both legs bilaterally with blanching erythema. We will titrate vent settings per ABG response, empiric antimicrobials for possible pneumonia has been started and a respiratory virus panel will be sent. Give 1 dose of furosemide 40mg tonight. Sedate to RASS -2 and wean as per protocol once more stabilized. Unable to obtain family history due to intubated status. HU CANCINO.
[2018-10-12] MEDS ORDERED: D5% in Water 1,000 ML IVC PRN ×2 (20:49→23:54)
[2018-10-12] MEDS ORDERED: *HR* Dextrose 50 % in Water (Syg) 50 ML SYRINGE IVP PRN ×2 (20:49→23:54)
[2018-10-12] MEDS ORDERED: Dextrose Gel 15 GM/37.5 ML TUBE PO PRN ×4 (20:49→23:54)
[2018-10-12] MEDS ORDERED: Dextrose 4 GM Chewable Tablets PO PRN ×4 (20:49→23:54)
[2018-10-12] MEDS ORDERED: Naloxone 0.4 MG/ML INJ IVP PRN (20:49)
[2018-10-12] MEDS ORDERED: Insulin LISPRO 300 UNITS/3 ML VIAL SQ SCH (21:00)
[2018-10-12] MEDS ORDERED: methylPREDNISolone 125 MG/2 ML VIAL IVP SCH (21:00)
[2018-10-12 21:31] LABS: ABG Base Excess 8 mEq/L (-2 to 3); ABG HCO3 37 mEq/L (21-27); ABG Oxygen Saturation 69 % (95-98); ABG PCO2 74 mmHg (35-45); ABG PH 7.31 pH Units (7.32-7.45); ABG PO2 42 mmHg (85-104); ABG TCO2 39 mEq/L (20-26); Blood Gas PEEP 5 cm H2O; Blood Gas Respiration Rate 20; Blood Gas VT 500 cc
[2018-10-12 21:40] LABS: Bilirubin,Urine Negative (Negative); Blood,Urine Trace (Negative); Clarity,Urine Clear (Clear); Color,Urine Yellow (Yellow); Glucose,Urine (UA) Normal (Normal); Ketones,Urine Trace mg/dL (Negative); Leukocyte Esterase,Urine Negative (Negative); Nitrite,Urine Negative (Negative); Protein,Urine 100 mg/dL (Neg-Trace); Specific Gravity,Urine 1.019 (1.010-1.025); Urobilinogen,Urine Normal (Normal)
[2018-10-12 21:43] LABS: Bacteria,Urine None Seen per hpf (None-Few); Hyaline Casts,Urine None Seen per lpf (None-Few); Squamous Epithelial Cell,Urine Many per lpf (None-Few); WBC,Urine 0-3 per hpf (0-3)
[2018-10-12] MEDS ORDERED: Artificial Tears SOLN 15 ML BOTTLE BOTH EYES PRN (21:58)
[2018-10-12] MEDS ORDERED: Furosemide 40 MG/4 ML VIAL IVP ONE (22:10)
[2018-10-13 00:24] LABS: ABG Base Excess 8 mEq/L (-2 to 3); ABG HCO3 35 mEq/L (21-27); ABG Oxygen Saturation 81 % (95-98); ABG PCO2 58 mmHg (35-45); ABG PH 7.39 pH Units (7.32-7.45); ABG PO2 47 mmHg (85-104); ABG TCO2 36 mEq/L (20-26); Blood Gas Modality PRVC; Blood Gas PEEP 5 cm H2O; Blood Gas Respiration Rate 20; Blood Gas VT 500 cc
[2018-10-13] MEDS: FentaNYL (PF) 1,000 MCG in 0.9 % Sodium Chloride 80 ML IVC SCH ×3 (00:24→23:13)
[2018-10-13] MEDS: *HR* Heparin 5,000 UNIT/ML VIAL SQ SCH ×3 (00:24→16:56)
[2018-10-13] MEDS: Azithromycin 500 MG in D5% in Water 250 ML IVPB SCH ×2 (00:25→20:11)
[2018-10-13] MEDS: cefTRIAXone 2,000 MG in Water for inj. (sterile) 20 ML 20 ML IVP SCH ×2 (00:25→20:11)
[2018-10-13] MEDS: Artificial Tears SOLN 15 ML BOTTLE BOTH EYES SCH ×7 (00:29→23:22)
[2018-10-13] MEDS: MethylPREDNISolone 40 MG/ML VIAL IVP SCH ×3 (02:25→20:12)
[2018-10-13] MEDS ORDERED: methylPREDNISolone 125 MG/2 ML VIAL IVP SCH (03:00)
[2018-10-13] MEDS ORDERED: D5% in Water 1,000 ML IVC PRN (03:13)
[2018-10-13 03:54] LABS: Eosinophils % 0.1 %; Hematocrit 33.5 % (35.3-44.9); Hemoglobin 10.5 g/dL (11.5-15.4); Immature Granulocytes % 0.5 % (0-4); Lymphocytes # 0.4 K/mcL (0.6-4.6); Lymphocytes % 4.2 %; Mean Corpuscular HGB Conc 31.3 g/dL (31.6-35.5); Mean Corpuscular Hemoglobin 29.7 pg (28.0-33.3); Mean Corpuscular Volume 94.6 fL (83.0-100.0); Mean Platelet Volume 10.1 fL (9.4-12.4); Monocytes # 0.2 K/mcL (0.0-1.3); Monocytes % 2.8 %; Neutrophils # 7.7 K/mcL (1.6-8.9); Platelet Count 141 K/mcL (140-400); Red Blood Count 3.54 M/mcL (3.82-4.97); Red Cell Distribution Width 13.3 % (11.5-14.5); Segmented Neutrophils % 92.4 %
[2018-10-13 04:09] LABS: BUN/Creatinine Ratio 25 (6-26); Blood Urea Nitrogen 18 mg/dL (8-23); Calcium 8.9 mg/dL (8.6-10.3); Carbon Dioxide 33 mEq/L (23-29); Chloride 101 mEq/L (98-107); Glucose 213 mg/dL (70-105); Osmolality,Calculated 300 (280-300); Potassium 3.9 mEq/L (3.5-5.1); Sodium 141 mEq/L (136-145); eGFR For Non-African Americans > 60 (> 60)
[2018-10-13 05:22] LABS: ABG Base Excess 10 mEq/L (-2 to 3); ABG HCO3 35 mEq/L (21-27); ABG Oxygen Saturation 85 % (95-98); ABG PCO2 49 mmHg (35-45); ABG PH 7.46 pH Units (7.32-7.45); ABG PO2 49 mmHg (85-104); ABG TCO2 37 mEq/L (20-26); Blood Gas Modality ac; Blood Gas PEEP 5 cm H2O; Blood Gas Respiration Rate 20; Blood Gas VT 500 cc
[2018-10-13] MEDS: Insulin LISPRO 300 UNITS/3 ML VIAL SQ SCH ×3 (05:32→18:00)
[2018-10-13] MEDS ORDERED: Insulin LISPRO 300 UNITS/3 ML VIAL SQ SCH (07:30)
[2018-10-13] MEDS ORDERED: Budesonide/Formoterol 160/4.5 1 PUFF INH IH ONE (07:43)
[2018-10-13] MEDS: Ipratropium/Albuterol Neb 3 ML IH SCH ×5 (07:46→23:37)
[2018-10-13] MEDS: Budesonide/Formoterol 160/4.5 1 PUFF INH IH SCH ×2 (07:46→19:45)
[2018-10-13] MEDS: Chlorhexidine Rinse 15 ML MOUTHWASH MM SCH ×2 (08:43→20:11)
[2018-10-13] MEDS: Furosemide 20 MG/2 ML VIAL IVP SCH (08:43)
--- NOTE | 2018-10-13 09:39 | Pulmonology Progress Note ---
Addendum entered and electronically signed by Daquan Collier 10/13/18 17:44: Document created in error. Please delete. Refer to subsequent Pulm consult note. Original Note: <MiguelDaquan T - Last Filed: 10/13/18 16:12> Date of Encounter: 10/13/18 Time of Encounter: 14:07 Assessment and Plan (1) Acute exacerbation of chronic obstructive airways disease Current Visit: No Status: Acute 73-year-old female presenting on 10/12 she was intubated in ER and received 750 mg of Levaquin IV push bolus. History significant for COPD on 2 L oxygen, CHF, hypercapnic respiratory failure. Started on Rocephin and azithromycin. Currently on mechanical ventilation. Vitals: Pulse 6, respiratory rate 14, satting 94% on mechanical ventilation, BP 129/64 Ventilator settings: Rate 20, FiO2 60%, PEEP 5, tidal volume 500 Imaging CXR 10/12 showing stable cardiomegaly, diffuse reticular changes at lung bases possibly representing atypical pneumonia or interstitial lung disease - Labs - 10/12 pending mycoplasma pneumonia IgG IgM - 10/12 pending blood culture 2 - 10/13/18 bronchoscopy morning, pending sputum cytology and culture, AFB culture, fungal culture Plan: Sedation continue fentanyl propofol COPD exacerbation continue Solu-Medrol and Symbicort For potential pneumonia continue azithromycin and Rocephin Morning labs CBC and BMP and ABG Tube feeding diet (2) PNA (pneumonia) Current Visit: No Status: Acute Refer to acute exacerbation of COPD Qualifiers: Pneumonia type: due to unspecified organism Laterality: right Lung location: lower lobe of lung Qualified Code(s): J18.1 - Lobar pneumonia, unspecified organism (3) Diabetes mellitus Current Visit: No Status: Chronic Sliding scale insulin Qualifiers: Diabetes mellitus type: type 2 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 Received one time push of 40 mg Lasix on 10/12. Plan: Lopressor 5 mg IV push every 6 when necessary Continue Lasix 20 mg IV push daily. Qualifiers: Hypertension type: essential hypertension Qualified Code(s): I10 - Essential (primary) hypertension (5) DVT prophylaxis Current Visit: No Status: Acute Subcutaneous heparin. Subjective Principal diagnosis: Acute respiratory distress secondary to COPD exacerbation possible pneumo Interval history: 73-year-old female here for shortness of breath with history significant for COPD 2 L oxygen, CHF, hypercapnic respiratory failure, and pneumonia. Patient received bronchoscopy this morning with Dr. Putnam. She is currently asleep on sedation with fentanyl and propofol. No acute distress. Objective PUL Vital signs: Last Vital Signs Temp 97.5 F L 10/13/18 08:59 Pulse 55 10/13/18 09:00 Resp 14 10/13/18 09:05 BP 116/66 10/13/18 09:05 Pulse Ox 94 10/13/18 09:05 General appearance: no acute distress, asleep, appears uncomfortable Eyes: nonicteric Neck: supple Effort: normal Auscultation: bilateral: diminished breath sounds Cardiovascular: regular rate and rhythm Gastrointestinal: normoactive bowel sounds, soft, non-distended Extremities: pink and warm unable to assess due to mental status Ventilator Settings Ventilator Settings: Ventilator Settings, Last 8 Hours Ventilator Tidal Volume 500 Setting Ventilator Tidal Volume 500 Setting Ventilator Tidal Volume 500 Setting Ventilator Tidal Volume 500 Setting Ventilator Tidal Volume 500 Setting Ventilator Tidal Volume 500 Setting Ventilator Tidal Volume 500 Setting Ventilator Tidal Volume 500 Setting Ventilator Tidal Volume 500 Setting Ventilator Tidal Volume 500 Setting Ventilator Tidal Volume 500 Setting Ventilator Tidal Volume 500 Setting Ventilator Tidal Volume 500 Setting Ventilator Respiratory Rate 14 Setting Ventilator Respiratory Rate 14 Setting Ventilator Respiratory Rate 14 Setting Ventilator Respiratory Rate 14 Setting Ventilator Respiratory Rate 20 Setting Ventilator Respiratory Rate 20 Setting Ventilator Respiratory Rate 20 Setting Ventilator Respiratory Rate 20 Setting Ventilator Respiratory Rate 20 Setting Ventilator Respiratory Rate 20 Setting Ventilator Respiratory Rate 20 Setting Ventilator Respiratory Rate 20 Setting Ventilator Respiratory Rate 20 Setting Actual Respiratory Rate 14 Actual Respiratory Rate 14 Actual Respiratory Rate 14 Actual Respiratory Rate 14 Actual Respiratory Rate 20 Actual Respiratory Rate 20 Actual Respiratory Rate 20 Actual Respiratory Rate 20 Actual Respiratory Rate 20 Actual Respiratory Rate 20 Actual Respiratory Rate 20 Actual Respiratory Rate 20 Positive End Expiratory 5 Pressure Positive End Expiratory 5 Pressure Positive End Expiratory 5 Pressure Positive End Expiratory 5 Pressure Positive End Expiratory 5 Pressure Positive End Expiratory 5 Pressure Positive End Expiratory 5 Pressure Positive End Expiratory 5 Pressure Positive End Expiratory 5 Pressure Positive End Expiratory 5 Pressure Positive End Expiratory 5 Pressure Positive End Expiratory 5 Pressure Positive End Expiratory 5 Pressure Peak Inspiratory Airway 21 Pressure Peak Inspiratory Airway 21 Pressure Peak Inspiratory Airway 23 Pressure Peak Inspiratory Airway 33 Pressure Peak Inspiratory Airway 32 Pressure Peak Inspiratory Airway 24 Pressure Peak Inspiratory Airway 28 Pressure Peak Inspiratory Airway 25 Pressure Peak Inspiratory Airway 27 Pressure Peak Inspiratory Airway 31 Pressure Peak Inspiratory Airway 25 Pressure Peak Inspiratory Airway 25 Pressure Results - Laboratory Findings CBC and BMP: 10/13/18 03:26 10/13/18 03:26 ABG ABG pH 7.46 pH Units (7.32-7.45) H 10/13/18 05:17 ABG pCO2 49 mmHg (35-45) H 10/13/18 05:17 ABG pO2 49 mmHg (85-104) L* 10/13/18 05:17 ABG O2 Saturation 85 % (95-98) L 10/13/18 05:17 PT/INR, D-dimer PT 11.6 Seconds (9.4-12.1) 10/12/18 19:25 Abnormal lab findings: Abnormal lab results RBC 3.54 M/mcL (3.82-4.97) L 10/13/18 03:26 Hgb 10.5 g/dL (11.5-15.4) L 10/13/18 03:26 Hct 33.5 % (35.3-44.9) L 10/13/18 03:26 MCHC 31.3 g/dL (31.6-35.5) L 10/13/18 03:26 Lymphocytes # 0.4 K/mcL (0.6-4.6) L 10/13/18 03:26 ABG pH 7.46 pH Units (7.32-7.45) H 10/13/18 05:17 ABG pCO2 49 mmHg (35-45) H 10/13/18 05:17 ABG pO2 49 mmHg (85-104) L* 10/13/18 05:17 ABG HCO3 35 mEq/L (21-27) H 10/13/18 05:17 ABG Total CO2 37 mEq/L (20-26) H 10/13/18 05:17 ABG O2 Saturation 85 % (95-98) L 10/13/18 05:17 ABG Base Excess 10 mEq/L (-2 to 3) H 10/13/18 05:17 Carbon Dioxide 33 mEq/L (23-29) H 10/13/18 03:26 Glucose 213 mg/dL (70-105) H 10/13/18 03:26 POC Glucose 189 mg/dL (70-99) H 10/12/18 23:08 B-Natriuretic Peptide 341 pg/mL (Less than 100) H 10/12/18 19:25 Urine Protein 100 mg/dL (Neg-Trace) H 10/12/18 21:10 Urine Ketones Trace mg/dL (Negative) H 10/12/18 21:10 Urine Blood Trace (Negative) H 10/12/18 21:10 Urine Microscopic RBC 3-5 per hpf (0-3) H 10/12/18 21:10 Ur Squamous Epith Cells Many per lpf (None-Few) H 10/12/18 21:10 - Microbiology Findings Microbiology Findings: Microbiology, Last 48 Hours 10/13/18 01:05 Legionella Antigen - Final Urine,Clean Catch Streptococcus pneumoniae Antigen (M - Final 10/12/18 19:25 Blood Culture - Preliminary Peripheral Venipuncture Culture is incubating and being continuously monitored for growth. Final report to follow. 10/12/18 19:25 Blood Culture - Preliminary Peripheral Venipuncture Culture is incubating and being continuously monitored for growth. Final report to follow. - Clinical Findings Intake & Output: Intake & Output 10/12/18 10/13/18 10/13/18 23:59 07:59 15:59 Intake Total 1200 / 1200 513 / 513 Output Total 125 / 125 400 / 400 Balance 1075 / 1075 113 / 113 Weight 83.6 kg 83.6 kg Consult Discharge Plan - Plan Referrals: NONE,PCP [Primary Care Provider] - <Felipe Putnam M - Last Filed: 10/14/18 23:21> Date of Encounter: 10/14/18 Assessment and Plan (1) Acute and chronic respiratory failure ([id number]) Current Visit: No Status: Acute Qualifiers: Respiratory failure complication: hypoxia and hypercapnia Qualified Code(s): J96.21 - Acute and chronic respiratory failure with hypoxia; J96.22 - Acute and chronic respiratory failure with hypercapnia (2) Acute exacerbation of chronic obstructive airways disease Current Visit: No Status: Acute Objective PUL Vital signs: Last Vital Signs Temp 98.3 F 10/14/18 20:00 Pulse 71 10/14/18 22:00 Resp 14 10/14/18 22:04 BP 96/47 10/14/18 22:04 Pulse Ox 92 10/14/18 22:04 Ventilator Settings Ventilator Settings: Ventilator Settings, Last 8 Hours Ventilator Tidal Volume 500 Setting Ventilator Tidal Volume 500 Setting Ventilator Tidal Volume 500 Setting Ventilator Tidal Volume 500 Setting Ventilator Tidal Volume 500 Setting Ventilator Tidal Volume 500 Setting Ventilator Tidal Volume 500 Setting Ventilator Tidal Volume 500 Setting Ventilator Tidal Volume 500 Setting Ventilator Tidal Volume 500 Setting Ventilator Tidal Volume 500 Setting Ventilator Respiratory Rate 14 Setting Ventilator Respiratory Rate 14 Setting Ventilator Respiratory Rate 14 Setting Ventilator Respiratory Rate 14 Setting Ventilator Respiratory Rate 14 Setting Ventilator Respiratory Rate 14 Setting Ventilator Respiratory Rate 14 Setting Ventilator Respiratory Rate 14 Setting Ventilator Respiratory Rate 14 Setting Ventilator Respiratory Rate 14 Setting Ventilator Respiratory Rate 14 Setting Actual Respiratory Rate 14 Actual Respiratory Rate 14 Actual Respiratory Rate 14 Actual Respiratory Rate 14 Actual Respiratory Rate 14 Actual Respiratory Rate 14 Actual Respiratory Rate 14 Actual Respiratory Rate 14 Positive End Expiratory 5 Pressure Positive End Expiratory 5 Pressure Positive End Expiratory 5 Pressure Positive End Expiratory 5 Pressure Positive End Expiratory 5 Pressure Positive End Expiratory 5 Pressure Positive End Expiratory 5 Pressure Positive End Expiratory 5 Pressure Positive End Expiratory 5 Pressure Positive End Expiratory 5 Pressure Positive End Expiratory 5 Pressure Peak Inspiratory Airway 17 Pressure Peak Inspiratory Airway 16 Pressure Peak Inspiratory Airway 17 Pressure Peak Inspiratory Airway 19 Pressure Peak Inspiratory Airway 23 Pressure Peak Inspiratory Airway 19 Pressure Peak Inspiratory Airway 20 Pressure Peak Inspiratory Airway 20 Pressure Peak Inspiratory Airway 20 Pressure Peak Inspiratory Airway 20 Pressure Peak Inspiratory Airway 20 Pressure Results - Laboratory Findings CBC and BMP: 10/14/18 03:08 10/14/18 03:08 ABG ABG pH 7.38 pH Units (7.32-7.45) 10/14/18 06:21 ABG pCO2 60 mmHg (35-45) H 10/14/18 06:21 ABG pO2 81 mmHg (85-104) L 10/14/18 06:21 ABG O2 Saturation 95 % (95-98) 10/14/18 06:21 PT/INR, D-dimer PT 11.6 Seconds (9.4-12.1) 10/12/18 19:25 Abnormal lab findings: Abnormal lab results RBC 3.19 M/mcL (3.82-4.97) L 10/14/18 03:08 Hgb 9.6 g/dL (11.5-15.4) L 10/14/18 03:08 Hct 30.0 % (35.3-44.9) L 10/14/18 03:08 Lymphocytes # 0.3 K/mcL (0.6-4.6) L 10/14/18 03:08 ABG pCO2 60 mmHg (35-45) H 10/14/18 06:21 ABG pO2 81 mmHg (85-104) L 10/14/18 06:21 ABG HCO3 36 mEq/L (21-27) H 10/14/18 06:21 ABG Total CO2 37 mEq/L (20-26) H 10/14/18 06:21 ABG Base Excess 9 mEq/L (-2 to 3) H 10/14/18 06:21 Carbon Dioxide 33 mEq/L (23-29) H 10/14/18 03:08 BUN 27 mg/dL (8-23) H 10/14/18 03:08 Est GFR (Non-Af Amer) 52 (> 60) L 10/14/18 03:08 Glucose 210 mg/dL (70-105) H 10/14/18 03:08 POC Glucose 184 mg/dL (70-99) H 10/14/18 08:01 B-Natriuretic Peptide 341 pg/mL (Less than 100) H 10/12/18 19:25 Urine Protein 100 mg/dL (Neg-Trace) H 10/12/18 21:10 Urine Ketones Trace mg/dL (Negative) H 10/12/18 21:10 Urine Blood Trace (Negative) H 10/12/18 21:10 Urine Microscopic RBC 3-5 per hpf (0-3) H 10/12/18 21:10 Ur Squamous Epith Cells Many per lpf (None-Few) H 10/12/18 21:10 Fluid Appearance Hazy (Clear) A 10/13/18 10:10 - Microbiology Findings Microbiology Findings: Microbiology, Last 48 Hours 10/13/18 10:10 Respiratory Culture - Preliminary Left Lower Lobe Lung 10/13/18 10:10 Fungal Culture - Preliminary Left Lower Lobe Lung Culture is incubating. 10/13/18 01:05 Legionella Antigen - Final Urine,Clean Catch Streptococcus pneumoniae Antigen (M - Final 10/12/18 19:25 Blood Culture - Preliminary Peripheral Venipuncture Culture is incubating and being continuously monitored for growth. Final report to follow. 10/12/18 19:25 Blood Culture - Preliminary Peripheral Venipuncture Culture is incubating and being continuously monitored for growth. Final report to follow. - Clinical Findings Intake & Output: Intake & Output 10/14/18 10/14/1810/14/19 07:59 15:59 23:59 Intake Total 529.1 / 529.1 401.9 / 401.9 947 / 947 Output Total 50 / 50 150 / 150 250 / 250 Balance 479.1 / 479.1 251.9 / 251.9 697 / 697 Weight 83.5 kg - Attending Attestation Refer to consult note
[2018-10-13] MEDS ORDERED: Pantoprazole 40 MG VIAL IVP ONE (10:53)
--- NOTE | 2018-10-13 16:45 | Pulmonology Consult Note ---
<Daquan Collier - Last Filed: 10/13/18 17:38> Date of Encounter: 10/13/18 Time of Encounter: 17:38 Assessment and Plan (1) Acute exacerbation of chronic obstructive airways disease Current Visit: No Status: Acute 73-year-old female presenting on 10/12 she was intubated in ER and received 750 mg of Levaquin IV push bolus. History significant for COPD on 2 L oxygen, CHF, hypercapnic respiratory failure. Started on Rocephin and azithromycin. Currently on mechanical ventilation. Vitals: Pulse 6, respiratory rate 14, satting 94% on mechanical ventilation, BP 129/64 Ventilator settings: Rate 20, FiO2 60%, PEEP 5, tidal volume 500 Imaging CXR 10/12 showing stable cardiomegaly, diffuse reticular changes at lung bases possibly representing atypical pneumonia or interstitial lung disease - Labs - 10/12 pending mycoplasma pneumonia IgG IgM - 10/12 pending blood culture 2 - 10/13/18 bronchoscopy morning, pending sputum cytology and culture, AFB culture, fungal culture Plan: Sedation continue fentanyl propofol COPD exacerbation continue Solu-Medrol and Symbicort For potential pneumonia continue azithromycin and Rocephin Morning labs CBC and BMP and ABG Tube feeding diet (2) PNA (pneumonia) Current Visit: No Status: Acute Refer to acute exacerbation of COPD Qualifiers: Pneumonia type: due to unspecified organism Laterality: right Lung location: lower lobe of lung Qualified Code(s): J18.1 - Lobar pneumonia, unspecified organism (3) Diabetes mellitus Current Visit: No Status: Chronic Sliding scale insulin Qualifiers: Diabetes mellitus type: type 2 Diabetes mellitus fpc insulin use: without fpc use Diabetes mellitus complication status: with hyperglycemia Qualified Code(s): E11.65 - Type 2 diabetes mellitus with hyperglycemia (4) Hypertension Current Visit: No Status: Chronic Patient's current pressures 142/68. Received one time push of 40 mg Lasix on 10/12. Plan: Lopressor 5 mg IV push every 6 when necessary Continue Lasix 20 mg IV push daily. Qualifiers: Hypertension type: essential hypertension Qualified Code(s): I10 - Essential (primary) hypertension (5) DVT prophylaxis Current Visit: No Status: Acute Subcutaneous heparin. History of Present Illness Consult date: 10/13/18 Reason for consult: dyspnea, pneumonia Chief complaint: Shortness of breath History of present illness: 73-year-old female presenting/19 shortness of breath admitted to the ICU for further evaluation and management of shortness of breath. History significant for COPD on 2 L oxygen, CHF, hypothyroidism, type 2 diabetes, tobacco abuse. She was intubated in the ER and given one dose of steroids and levofloxacin. Vitals: Pulse 6, respiratory rate 14, satting 94% on mechanical ventilation, BP 129/64 Ventilator settings: Rate 20, FiO2 60%, PEEP 5, tidal volume 500 Imaging CXR 10/12 showing stable cardiomegaly, diffuse reticular changes at lung bases possibly representing atypical pneumonia or interstitial lung disease - Labs - 10/12 pending mycoplasma pneumonia IgG IgM - 10/12 pending blood culture 2 - 10/13/18 bronchoscopy morning, pending sputum cytology and culture, AFB culture, fungal culture Past Med Surg Social Fam HX - Past Medical History Medical history: COPD, diabetes, hyperlipidemia, hypertension, thyroid disease, other Additional medical history: Patient reports an irregual heart rate but doesnt remember what it was called. CVA (2015), Psychiatric history: anxiety, depression - Past Surgical History Surgical History: cholecystectomy, other Additional surgical history: Throat biopsy. - Social History Smoking Status: Current every day smoker Smokeless Tobacco Status: No Alcohol use: none Drug use: none - Family History Father Living Status: Hx Family Cardiac Disorders: Yes (Stroke,) Hx Family Respiratory Disorders: Yes (COPD) Hx Family Endocrine Disorder: Yes (Diabetes) Mother Living Status: Hx Family Cardiac Disorders: Yes (MS) Hx Family Respiratory Disorders: Yes (Lung CA,) Hx Family Cancer: Yes (Lung) Hx Family GI Disorders: Yes (Ulcers) Hx Family Endocrine Disorder: Yes (Hypothyroidism, diabetes) Hx Family Neuromuscular Disorders: No Hx Family Neurologic Disorders: No Hx Family HEENT Disorders: No Hx Family Autoimmune Disorders: No Medications and Allergies RX: Albuterol Sulfate [Ventolin Hfa] 2 puff IH Q4H PRN 11/16/16 [History] RX: Aspirin Enteric Coated [Aspirin EC] 325 mg PO DAILY 11/16/16 [History] RX: Atenolol [Tenormin] 25 mg PO DAILY 11/16/16 [History] RX: Folic Acid 1 mg PO DAILY 11/16/16 [History] RX: Gabapentin [Neurontin] 300 mg PO BID 11/16/16 [History] RX: Ipratropium/Albuterol Neb [Duoneb] 3 ml IH QID PRN 11/16/16 [History] RX: Lovastatin [Mevacor] 20 mg PO DAILY 11/16/16 [History] RX: Metformin HCl [Metformin ER Gastric] 1,500 mg PO QPM 11/16/16 [History] RX: Potassium Chloride [Klor-Con 10] 10 meq PO BID 11/16/16 [History] RX: amLODIPine [Norvasc] 5 mg PO DAILY 11/16/16 [History] RX: Alendronate Sodium [Fosamax] 70 mg PO QWEEK 12/31/16 [History] RX: Cholecalciferol (Vitamin D3) [Vitamin D3] 50,000 unit PO TU 01/21/17 [History] RX: Oxygen 4 l NS AD 01/21/17 [History] RX: Escitalopram [Lexapro] 10 mg PO DAILY 08/31/17 [History] RX: Furosemide [Lasix] 40 mg PO QAM 01/02/18 [History] RX: Levothyroxine Sodium [Levo-T] 200 mcg PO QAM 01/02/18 [History] RX: Losartan Potassium [Cozaar] 100 mg PO DAILY 01/02/18 [History] Albuterol Neb [Proventil Neb] 2.5 mg IH QID PRN 10/13/18 [History] Furosemide [Lasix] 20 mg PO QPM 10/13/18 [History] Linagliptin [Tradjenta] 5 mg PO DAILY 10/13/18 [History] RX: Docusate [Colace] 100 mg PO BID PRN 10/13/18 [History] RX: Mupirocin [Bactroban Oint] 1 appl TP TID 10/13/18 [History] Allergy/AdvReac Type Severity Reaction Status Date / Time No Known Allergies Allergy Verified 01/21/17 03:23 ROS unobtainable: due to endotracheal tube, due to mental status All Systems: The remainder of the systems were reviewed and are negative Physical Examination Vital Signs: Vital Signs, Last 4 Hours Temp Pulse Resp BP Pulse Ox 10/13/18 16:16 14 157/71 98 10/13/18 15:22 97.3 F L 10/13/18 15:00 97.3 F L 57 14 152/66 97 02/15/19 14:00 62 16 142/68 95 10/13/18 13:34 14 129/64 92 10/13/18 13:00 56 14 130/67 94 General appearance: no acute distress, asleep, appears uncomfortable Eyes: nonicteric Neck: supple Effort: mildly labored Auscultation: bilateral: diminished breath sounds Cardiovascular: regular rate and rhythm Gastrointestinal: normoactive bowel sounds, soft, non-distended Extremities: pink and warm, pulses normal unable to assess due to mental status Ventilator Settings Ventilator Settings: Ventilator Settings, Last 8 Hours Ventilator Tidal Volume 500 Setting Ventilator Tidal Volume 500 Setting Ventilator Tidal Volume 500 Setting Ventilator Tidal Volume 500 Setting Ventilator Tidal Volume 500 Setting Ventilator Tidal Volume 500 Setting Ventilator Tidal Volume 500 Setting Ventilator Tidal Volume 500 Setting Ventilator Tidal Volume 500 Setting Ventilator Tidal Volume 500 Setting Ventilator Tidal Volume 500 Setting Ventilator Respiratory Rate 14 Setting Ventilator Respiratory Rate 14 Setting Ventilator Respiratory Rate 14 Setting Ventilator Respiratory Rate 14 Setting Ventilator Respiratory Rate 14 Setting Ventilator Respiratory Rate 14 Setting Ventilator Respiratory Rate 14 Setting Ventilator Respiratory Rate 14 Setting Ventilator Respiratory Rate 14 Setting Ventilator Respiratory Rate 14 Setting Ventilator Respiratory Rate 14 Setting Actual Respiratory Rate 14 Actual Respiratory Rate 14 Actual Respiratory Rate 16 Actual Respiratory Rate 14 Actual Respiratory Rate 14 Actual Respiratory Rate 14 Actual Respiratory Rate 14 Actual Respiratory Rate 14 Actual Respiratory Rate 14 Actual Respiratory Rate 14 Actual Respiratory Rate 14 Positive End Expiratory 5 Pressure Positive End Expiratory 5 Pressure Positive End Expiratory 5 Pressure Positive End Expiratory 5 Pressure Positive End Expiratory 5 Pressure Positive End Expiratory 5 Pressure Positive End Expiratory 5 Pressure Positive End Expiratory 5 Pressure Positive End Expiratory 5 Pressure Positive End Expiratory 5 Pressure Positive End Expiratory 5 Pressure Peak Inspiratory Airway 23 Pressure Peak Inspiratory Airway 24 Pressure Peak Inspiratory Airway 24 Pressure Peak Inspiratory Airway 24 Pressure Peak Inspiratory Airway 22 Pressure Peak Inspiratory Airway 22 Pressure Peak Inspiratory Airway 22 Pressure Peak Inspiratory Airway 22 Pressure Peak Inspiratory Airway 21 Pressure Peak Inspiratory Airway 21 Pressure Peak Inspiratory Airway 21 Pressure Results - Laboratory Findings CBC and BMP: 10/13/18 03:26 10/13/18 03:26 ABG ABG pH 7.46 pH Units (7.32-7.45) H 10/13/18 05:17 ABG pCO2 49 mmHg (35-45) H 10/13/18 05:17 ABG pO2 49 mmHg (85-104) L* 10/13/18 05:17 ABG O2 Saturation 85 % (95-98) L 10/13/18 05:17 PT/INR, D-dimer PT 11.6 Seconds (9.4-12.1) 10/12/18 19:25 Abnormal lab findings: Abnormal lab results RBC 3.54 M/mcL (3.82-4.97) L 10/13/18 03:26 Hgb 10.5 g/dL (11.5-15.4) L 10/13/18 03:26 Hct 33.5 % (35.3-44.9) L 10/13/18 03:26 MCHC 31.3 g/dL (31.6-35.5) L 10/13/18 03:26 Lymphocytes # 0.4 K/mcL (0.6-4.6) L 10/13/18 03:26 ABG pH 7.46 pH Units (7.32-7.45) H 10/13/18 05:17 ABG pCO2 49 mmHg (35-45) H 10/13/18 05:17 ABG pO2 49 mmHg (85-104) L* 10/13/18 05:17 ABG HCO3 35 mEq/L (21-27) H 10/13/18 05:17 ABG Total CO2 37 mEq/L (20-26) H 10/13/18 05:17 ABG O2 Saturation 85 % (95-98) L 10/13/18 05:17 ABG Base Excess 10 mEq/L (-2 to 3) H 10/13/18 05:17 Carbon Dioxide 33 mEq/L (23-29) H 10/13/18 03:26 Glucose 213 mg/dL (70-105) H 10/13/18 03:26 POC Glucose 189 mg/dL (70-99) H 10/12/18 23:08 B-Natriuretic Peptide 341 pg/mL (Less than 100) H 10/12/18 19:25 Urine Protein 100 mg/dL (Neg-Trace) H 10/12/18 21:10 Urine Ketones Trace mg/dL (Negative) H 10/12/18 21:10 Urine Blood Trace (Negative) H 10/12/18 21:10 Urine Microscopic RBC 3-5 per hpf (0-3) H 10/12/18 21:10 Ur Squamous Epith Cells Many per lpf (None-Few) H 10/12/18 21:10 - Microbiology Findings Microbiology Findings: Microbiology, Last 48 Hours 10/13/18 10:10 Respiratory Culture - Preliminary Left Lower Lobe Lung 10/13/18 01:05 Legionella Antigen - Final Urine,Clean Catch Streptococcus pneumoniae Antigen (M - Final 10/12/18 19:25 Blood Culture - Preliminary Peripheral Venipuncture Culture is incubating and being continuously monitored for growth. Final report to follow. 10/12/18 19:25 Blood Culture - Preliminary Peripheral Venipuncture Culture is incubating and being continuously monitored for growth. Final report to follow. - Clinical Findings Intake & Output: Intake & Output 10/13/18 10/13/18 10/13/18 07:59 15:59 23:59 Intake Total 513 / 513 157 / 157 Output Total 400 / 400 250 / 250 Balance 113 / 113 -93 / -93 Weight 83.6 kg Consult Discharge Plan - Plan Referrals: NONE,PCP [Primary Care Provider] - <Felipe Putnam M - Last Filed: 10/14/18 23:31> Date of Encounter: 10/14/18 All Systems: The remainder of the systems were reviewed and are negative Physical Examination Vital Signs: Vital Signs, Last 4 Hours Temp Pulse Resp BP Pulse Ox 10/13/18 16:16 14 157/71 98 10/13/18 15:22 97.3 F L 10/13/18 15:00 97.3 F L 57 14 152/66 97 10/13/18 14:00 62 16 142/68 95 10/13/18 13:34 14 129/64 92 10/13/18 13:00 56 14 130/67 94 Ventilator Settings Ventilator Settings: Ventilator Settings, Last 8 Hours Ventilator Tidal Volume 500 Setting Ventilator Tidal Volume 500 Setting Ventilator Tidal Volume 500 Setting Ventilator Tidal Volume 500 Setting Ventilator Tidal Volume 500 Setting Ventilator Tidal Volume 500 Setting Ventilator Tidal Volume 500 Setting Ventilator Tidal Volume 500 Setting Ventilator Tidal Volume 500 Setting Ventilator Tidal Volume 500 Setting Ventilator Tidal Volume 500 Setting Ventilator Respiratory Rate 14 Setting Ventilator Respiratory Rate 14 Setting Ventilator Respiratory Rate 14 Setting Ventilator Respiratory Rate 14 Setting Ventilator Respiratory Rate 14 Setting Ventilator Respiratory Rate 14 Setting Ventilator Respiratory Rate 14 Setting Ventilator Respiratory Rate 14 Setting Ventilator Respiratory Rate 14 Setting Ventilator Respiratory Rate 14 Setting Ventilator Respiratory Rate 14 Setting Actual Respiratory Rate 14 Actual Respiratory Rate 14 Actual Respiratory Rate 16 Actual Respiratory Rate 14 Actual Respiratory Rate 14 Actual Respiratory Rate 14 Actual Respiratory Rate 14 Actual Respiratory Rate 14 Actual Respiratory Rate 14 Actual Respiratory Rate 14 Actual Respiratory Rate 14 Positive End Expiratory 5 Pressure Positive End Expiratory 5 Pressure Positive End Expiratory 5 Pressure Positive End Expiratory 5 Pressure Positive End Expiratory 5 Pressure Positive End Expiratory 5 Pressure Positive End Expiratory 5 Pressure Positive End Expiratory 5 Pressure Positive End Expiratory 5 Pressure Positive End Expiratory 5 Pressure Positive End Expiratory 5 Pressure Peak Inspiratory Airway 23 Pressure Peak Inspiratory Airway 24 Pressure Peak Inspiratory Airway 24 Pressure Peak Inspiratory Airway 24 Pressure Peak Inspiratory Airway 22 Pressure Peak Inspiratory Airway 22 Pressure Peak Inspiratory Airway 22 Pressure Peak Inspiratory Airway 22 Pressure Peak Inspiratory Airway 21 Pressure Peak Inspiratory Airway 21 Pressure Peak Inspiratory Airway 21 Pressure Results - Laboratory Findings CBC and BMP: 10/14/18 03:08 10/14/18 03:08 ABG ABG pH 7.46 pH Units (7.32-7.45) H 10/13/18 05:17 ABG pCO2 49 mmHg (35-45) H 10/13/18 05:17 ABG pO2 49 mmHg (85-104) L* 10/13/18 05:17 ABG O2 Saturation 85 % (95-98) L 10/13/18 05:17 PT/INR, D-dimer PT 11.6 Seconds (9.4-12.1) 10/12/18 19:25 Abnormal lab findings: Abnormal lab results RBC 3.54 M/mcL (3.82-4.97) L 10/13/18 03:26 Hgb 10.5 g/dL (11.5-15.4) L 10/13/18 03:26 Hct 33.5 % (35.3-44.9) L 10/13/18 03:26 MCHC 31.3 g/dL (31.6-35.5) L 10/13/18 03:26 Lymphocytes # 0.4 K/mcL (0.6-4.6) L 10/13/18 03:26 ABG pH 7.46 pH Units (7.32-7.45) H 10/13/18 05:17 ABG pCO2 49 mmHg (35-45) H 10/13/18 05:17 ABG pO2 49 mmHg (85-104) L* 10/13/18 05:17 ABG HCO3 35 mEq/L (21-27) H 10/13/18 05:17 ABG Total CO2 37 mEq/L (20-26) H 10/13/18 05:17 ABG O2 Saturation 85 % (95-98) L 10/13/18 05:17 ABG Base Excess 10 mEq/L (-2 to 3) H 10/13/18 05:17 Carbon Dioxide 33 mEq/L (23-29) H 10/13/18 03:26 Glucose 213 mg/dL (70-105) H 10/13/18 03:26 POC Glucose 189 mg/dL (70-99) H 10/12/18 23:08 B-Natriuretic Peptide 341 pg/mL (Less than 100) H 10/12/18 19:25 Urine Protein 100 mg/dL (Neg-Trace) H 10/12/18 21:10 Urine Ketones Trace mg/dL (Negative) H 10/12/18 21:10 Urine Blood Trace (Negative) H 10/12/18 21:10 Urine Microscopic RBC 3-5 per hpf (0-3) H 10/12/18 21:10 Ur Squamous Epith Cells Many per lpf (None-Few) H 10/12/18 21:10 - Microbiology Findings Microbiology Findings: Microbiology, Last 48 Hours 10/13/18 10:10 Respiratory Culture - Preliminary Left Lower Lobe Lung 10/13/18 01:05 Legionella Antigen - Final Urine,Clean Catch Streptococcus pneumoniae Antigen (M - Final 10/12/18 19:25 Blood Culture - Preliminary Peripheral Venipuncture Culture is incubating and being continuously monitored for growth. Final report to follow. 10/12/18 19:25 Blood Culture - Preliminary Peripheral Venipuncture Culture is incubating and being continuously monitored for growth. Final report to follow. - Clinical Findings Intake & Output: Intake & Output 10/13/18 10/13/18 10/13/18 07:59 15:59 23:59 Intake Total 513 / 513 157 / 157 Output Total 400 / 400 250 / 250 Balance 113 / 113 -93 / -93 Weight 83.6 kg - Attending Attestation I examined this patient and my medical decision-making was reviewed with the Resident Physician. I agree with the documented findings, disposition and treatment plan as described except to the extent set forth below. Patient seen and examined. Labs, radiology, chart personally reviewed. 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 Pulmonary: Acceptable oxygenation and ventilation. Patient has evidence of intrinsic PEEP and I have change her setting with lowering respiratory rate and quick improvement in the intrinsic PEEP.Will adjust the vent based on the ABG and also PEEPi and I'm hoping with treatment of AECOP with systemic steroid and bronchdilators, she will be liberated from the invasive mechanical ventilation soon.Nursing staff and respiratory therapist noticed significant sputum when suction patient and discussed with daughter regarding bronchoscpy since patient is sedated on the vent and she gave consent for bronchoscopy for airway inspection and bronchial hygiene. Cardiovascular: stable , however there is a possibility her condition could worsen. GI: Nutrition per dietary and GI prophylaxis per routine Heme: DVT prophylaxis per routine ID: Continue antibiotics and plan to de-escalation Renal; urine out put and renal funtion reviewed Endorcine: blood glucose is monitored Lines: all lines checked and no evidence of infections Skin: skin care to prevent pressure ulcers per nursing routine care. Her lower extremities has evidence of chronic skin changes and stasis, suspect home condition may have something to do with this and social services coordinator consulted. I spent 35 min of Critical Care time with this patient. It involved decision making of high complexity to assess, manipulate, and support vital organ system failure and/or to prevent further life threatening deterioration of the patient's condition. The time involved in the performance of separately reportable procedures was not counted toward critical care time.
[2018-10-13] MEDS: Miconazole 2% ointment 114 GM TUBE TP SCH (20:13)
[2018-10-13 23:08] LABS: Appearance of Body Fluid Hazy (Clear); Volume of Body Fluid 20 mL
[2018-10-14] MEDS: Insulin LISPRO 300 UNITS/3 ML VIAL SQ SCH ×6 (00:39→23:34)
[2018-10-14] MEDS: MethylPREDNISolone 40 MG/ML VIAL IVP SCH ×3 (03:32→18:15)
[2018-10-14] MEDS: Artificial Tears SOLN 15 ML BOTTLE BOTH EYES SCH ×6 (03:33→23:33)
[2018-10-14 03:37] LABS: Hemoglobin 9.6 g/dL (11.5-15.4); Immature Granulocytes % 0.4 % (0-4); Lymphocytes # 0.3 K/mcL (0.6-4.6); Lymphocytes % 4.2 %; Mean Corpuscular Hemoglobin 30.1 pg (28.0-33.3); Mean Platelet Volume 10.5 fL (9.4-12.4); Monocytes # 0.2 K/mcL (0.0-1.3); Monocytes % 3.5 %; Neutrophils # 6.4 K/mcL (1.6-8.9); Platelet Count 160 K/mcL (140-400); Red Blood Count 3.19 M/mcL (3.82-4.97); Red Cell Distribution Width 13.6 % (11.5-14.5); Segmented Neutrophils % 91.9 %
[2018-10-14 03:40] LABS: BUN/Creatinine Ratio 26 (6-26); Blood Urea Nitrogen 27 mg/dL (8-23); Carbon Dioxide 33 mEq/L (23-29); Chloride 98 mEq/L (98-107); Glucose 210 mg/dL (70-105); Osmolality,Calculated 297 (280-300); Potassium 3.7 mEq/L (3.5-5.1); Sodium 138 mEq/L (136-145); eGFR For Non-African Americans 52 (> 60)
[2018-10-14] MEDS: Ipratropium/Albuterol Neb 3 ML IH SCH ×6 (03:44→23:39)
[2018-10-14] MEDS: *HR* Heparin 5,000 UNIT/ML VIAL SQ SCH ×2 (05:54→18:15)
[2018-10-14 06:25] LABS: ABG Base Excess 9 mEq/L (-2 to 3); ABG HCO3 36 mEq/L (21-27); ABG Oxygen Saturation 95 % (95-98); ABG PCO2 60 mmHg (35-45); ABG PH 7.38 pH Units (7.32-7.45); ABG PO2 81 mmHg (85-104); ABG TCO2 37 mEq/L (20-26); Blood Gas Modality ASSIST CONTROL; Blood Gas PEEP 5 cm H2O; Blood Gas Respiration Rate 14; Blood Gas VT 500 cc
[2018-10-14] MEDS ORDERED: Insulin LISPRO 300 UNITS/3 ML VIAL SQ SCH (08:00)
[2018-10-14] MEDS: Chlorhexidine Rinse 15 ML MOUTHWASH MM SCH ×2 (08:02→19:34)
[2018-10-14] MEDS: Pantoprazole 40 MG VIAL IVP SCH (08:02)
[2018-10-14] MEDS: Furosemide 20 MG/2 ML VIAL IVP SCH (08:02)
[2018-10-14] MEDS: Miconazole 2% ointment 114 GM TUBE TP SCH ×2 (08:03→19:44)
[2018-10-14] MEDS: Budesonide/Formoterol 160/4.5 1 PUFF INH IH SCH ×2 (08:15→20:32)
[2018-10-14] MEDS: FentaNYL (PF) 1,000 MCG in 0.9 % Sodium Chloride 80 ML IVC SCH ×3 (10:14→23:29)
--- NOTE | 2018-10-14 11:19 | Pulmonology Progress Note ---
Date of Encounter: 10/14/18 Time of Encounter: 07:30 Assessment and Plan (1) Acute and chronic respiratory failure ([id number]) Current Visit: No Status: Acute Unfortunately patient did not tolerate spontaneous breathing trial and agitation plays an important role for the failure and most likely we will need to have a short trial and extubate. We will resume her home medication or the antidepressant which hopefully will help to some extent. Continue vent support today and another trial tomorrow. Qualifiers: Respiratory failure complication: hypoxia and hypercapnia Qualified Code(s): J96.21 - Acute and chronic respiratory failure with hypoxia; J96.22 - Acute and chronic respiratory failure with hypercapnia (2) Acute exacerbation of chronic obstructive airways disease Current Visit: No Status: Acute Continue current treatment with bronchodilators and systemic steroid. 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 Subjective Principal diagnosis: Acute respiratory distress secondary to COPD exacerbation possible pneumo Interval history: Patient failed spontaneous breathing trial and looks like mainly due to agitation Objective PUL Vital signs: Last Vital Signs Temp 97.7 F 10/14/18 08:00 Pulse 68 10/14/18 10:00 Resp 14 10/14/18 10:00 BP 102/50 10/14/18 10:00 Pulse Ox 90 10/14/18 10:00 General: Patient is in no acute distress. HEENT: Normocephalic atraumatic, pupils are equal round and reactive to light and accommodation, anicteric sclera, nares is patent, mucous membranes moist, no JVD, trachea is midline Cardiovascular: Normal sinus rhythm, S1 and S2 audible, no murmur or rubs Respiratory: Diminished to auscultation bilaterally. No acute distress. No wheezing. Patient not using accessory muscles. Abdomen: Soft, nontender, nondistended, positive bowel sounds in all 4 quadrants Extremities: Warm, dry, trace lower extremity edema. Normal capillary refill. Neuro: Does not follows commands. Patient on sedation Skin: Warm to touch : No obvious abnormalities. Ventilator Settings Ventilator Settings: Ventilator Settings, Last 8 Hours Ventilator Tidal Volume 500 Setting Ventilator Tidal Volume 500 Setting Ventilator Tidal Volume 500 Setting Ventilator Tidal Volume 500 Setting Ventilator Tidal Volume 500 Setting Ventilator Tidal Volume 500 Setting Ventilator Tidal Volume 500 Setting Ventilator Tidal Volume 500 Setting Ventilator Tidal Volume 500 Setting Ventilator Tidal Volume 500 Setting Ventilator Tidal Volume 500 Setting Ventilator Respiratory Rate 14 Setting Ventilator Respiratory Rate 14 Setting Ventilator Respiratory Rate 14 Setting Ventilator Respiratory Rate 14 Setting Ventilator Respiratory Rate 14 Setting Ventilator Respiratory Rate 14 Setting Ventilator Respiratory Rate 14 Setting Ventilator Respiratory Rate 14 Setting Ventilator Respiratory Rate 14 Setting Ventilator Respiratory Rate 14 Setting Ventilator Respiratory Rate 14 Setting Actual Respiratory Rate 16 Actual Respiratory Rate 15 Actual Respiratory Rate 19 Actual Respiratory Rate 15 Actual Respiratory Rate 14 Actual Respiratory Rate 14 Actual Respiratory Rate 14 Positive End Expiratory 5 Pressure Positive End Expiratory 5 Pressure Positive End Expiratory 5 Pressure Positive End Expiratory 5 Pressure Positive End Expiratory 5 Pressure Positive End Expiratory 5 Pressure Positive End Expiratory 5 Pressure Positive End Expiratory 5 Pressure Positive End Expiratory 5 Pressure Positive End Expiratory 5 Pressure Positive End Expiratory 5 Pressure Positive End Expiratory 5 Pressure Peak Inspiratory Airway 20 Pressure Peak Inspiratory Airway 16 Pressure Peak Inspiratory Airway 17 Pressure Peak Inspiratory Airway 16 Pressure Peak Inspiratory Airway 17 Pressure Peak Inspiratory Airway 17 Pressure Peak Inspiratory Airway 10 Pressure Peak Inspiratory Airway 19 Pressure Peak Inspiratory Airway 21 Pressure Peak Inspiratory Airway 21 Pressure Peak Inspiratory Airway 20 Pressure Results - Laboratory Findings CBC and BMP: 10/14/18 03:08 10/14/18 03:08 ABG ABG pH 7.38 pH Units (7.32-7.45) 10/14/18 06:21 ABG pCO2 60 mmHg (35-45) H 10/14/18 06:21 ABG pO2 81 mmHg (85-104) L 10/14/18 06:21 ABG O2 Saturation 95 % (95-98) 10/14/18 06:21 PT/INR, D-dimer PT 11.6 Seconds (9.4-12.1) 10/12/18 19:25 Abnormal lab findings: Abnormal lab results RBC 3.19 M/mcL (3.82-4.97) L 10/14/18 03:08 Hgb 9.6 g/dL (11.5-15.4) L 10/14/18 03:08 Hct 30.0 % (35.3-44.9) L 10/14/18 03:08 Lymphocytes # 0.3 K/mcL (0.6-4.6) L 10/14/18 03:08 ABG pCO2 60 mmHg (35-45) H 10/14/18 06:21 ABG pO2 81 mmHg (85-104) L 10/14/18 06:21 ABG HCO3 36 mEq/L (21-27) H 10/14/18 06:21 ABG Total CO2 37 mEq/L (20-26) H 10/14/18 06:21 ABG Base Excess 9 mEq/L (-2 to 3) H 10/14/18 06:21 Carbon Dioxide 33 mEq/L (23-29) H 10/14/18 03:08 BUN 27 mg/dL (8-23) H 10/14/18 03:08 Est GFR (Non-Af Amer) 52 (> 60) L 10/14/18 03:08 Glucose 210 mg/dL (70-105) H 10/14/18 03:08 POC Glucose 184 mg/dL (70-99) H 10/14/18 08:01 B-Natriuretic Peptide 341 pg/mL (Less than 100) H 10/12/18 19:25 Urine Protein 100 mg/dL (Neg-Trace) H 10/12/18 21:10 Urine Ketones Trace mg/dL (Negative) H 10/12/18 21:10 Urine Blood Trace (Negative) H 10/12/18 21:10 Urine Microscopic RBC 3-5 per hpf (0-3) H 10/12/18 21:10 Ur Squamous Epith Cells Many per lpf (None-Few) H 10/12/18 21:10 Fluid Appearance Hazy (Clear) A 10/13/18 10:10 - Microbiology Findings Microbiology Findings: Microbiology, Last 48 Hours 10/13/18 10:10 Respiratory Culture - Preliminary Left Lower Lobe Lung 10/13/18 01:05 Legionella Antigen - Final Urine,Clean Catch Streptococcus pneumoniae Antigen (M - Final 10/12/18 19:25 Blood Culture - Preliminary Peripheral Venipuncture Culture is incubating and being continuously monit ored for growth. Final report to follow. 10/12/18 19:25 Blood Culture - Preliminary Peripheral Venipuncture Culture is incubating and being continuously monitored for growth. Final report to follow. - Clinical Findings Intake & Output: Intake & Output 10/13/18 10/14/18 10/14/18 23:59 07:59 15:59 Intake Total 988.0 / 988.0 529.1 / 529.1 109.9 / 109.9 Output Total 250 / 250 50 / 50 Balance 738.0 / 738.0 479.1 / 479.1 109.9 / 109.9 Weight 83.5 kg Consult Discharge Plan - Plan Referrals: NONE,PCP [Primary Care Provider] -
[2018-10-14] MEDS: cefTRIAXone 2,000 MG in Water for inj. (sterile) 20 ML 20 ML IVP SCH (19:32)
[2018-10-14] MEDS: Azithromycin 500 MG in D5% in Water 250 ML IVPB SCH (19:34)
--- NOTE | 2018-10-14 21:18 | Electrocardiograph Report ---
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
[2018-10-15] MEDS: MethylPREDNISolone 40 MG/ML VIAL IVP SCH ×3 (03:30→18:40)
[2018-10-15] MEDS: Ipratropium/Albuterol Neb 3 ML IH SCH ×5 (03:50→20:25)
[2018-10-15] MEDS: Artificial Tears SOLN 15 ML BOTTLE BOTH EYES SCH ×5 (04:00→20:23)
[2018-10-15] MEDS: Insulin LISPRO 300 UNITS/3 ML VIAL SQ SCH ×5 (04:01→20:50)
[2018-10-15 04:26] LABS: Hematocrit 30.4 % (35.3-44.9); Hemoglobin 9.7 g/dL (11.5-15.4); Immature Granulocytes % 1.5 % (0-4); Lymphocytes # 0.4 K/mcL (0.6-4.6); Lymphocytes % 5.5 %; Mean Corpuscular HGB Conc 31.9 g/dL (31.6-35.5); Mean Corpuscular Volume 94.1 fL (83.0-100.0); Mean Platelet Volume 10.3 fL (9.4-12.4); Monocytes # 0.4 K/mcL (0.0-1.3); Monocytes % 4.8 %; Neutrophils # 6.9 K/mcL (1.6-8.9); Platelet Count 186 K/mcL (140-400); Red Blood Count 3.23 M/mcL (3.82-4.97); Segmented Neutrophils % 88.2 %
[2018-10-15 04:46] LABS: Calcium 8.6 mg/dL (8.6-10.3); Potassium 3.6 mEq/L (3.5-5.1)
[2018-10-15 05:31] LABS: ABG Base Excess 9 mEq/L (-2 to 3); ABG HCO3 37 mEq/L (21-27); ABG Oxygen Saturation 85 % (95-98); ABG PCO2 68 mmHg (35-45); ABG PH 7.34 pH Units (7.32-7.45); ABG PO2 55 mmHg (85-104); ABG TCO2 39 mEq/L (20-26); Blood Gas PEEP 5 cm H2O; Blood Gas Respiration Rate 14; Blood Gas VT 500 cc
[2018-10-15] MEDS: *HR* Heparin 5,000 UNIT/ML VIAL SQ SCH ×2 (06:15→18:40)
[2018-10-15] MEDS: FentaNYL (PF) 1,000 MCG in 0.9 % Sodium Chloride 80 ML IVC SCH ×2 (06:15→20:05)
[2018-10-15 06:46] LABS: Mycoplasma pneumoniae IgG 0.04 U/L (<=0.09)
--- NOTE | 2018-10-15 06:50 | Pulmonology Progress Note ---
Date of Encounter: 10/15/18 Time of Encounter: 06:50 Assessment and Plan (1) Acute respiratory failure with hypoxia and hypercapnia Current Visit: No Status: Acute In conclusion this Emilio has advanced emphysema complicated by chronic respiratory failure presenting with acute on chronic hypoxic hypercapnic respiratory failure secondary to COPD exacerbation possibly from pneumonia. She remains intubated spontaneous breathing trial a day was cut short because of apnea patient still having periods of intense agitation requiring sedation while on vent Switch from propofol to Precedex for agitation control and comfort on vent. May need fentanyl if pain arises Plan to flip back to before meals mode today and we will reassess tomorrow with spontaneous breathing trial Review antibiotics IV steroids and bronchodilators. Nicotine patch will be provided and smoking cessation counseling given prior to discharge from the hospital DVT prophy/PPI/VAP while on Vent. (2) Acute exacerbation of chronic obstructive airways disease Current Visit: No Status: Acute (3) Pulmonary edema Current Visit: No Status: Resolved Qualifiers: Chronicity: acute Qualified Code(s): J81.0 - Acute pulmonary edema (4) Nicotine dependence Current Visit: No Status: Chronic Qualifiers: Nicotine product type: cigarettes Substance use status: unspecified nicotine-induced disorder Qualified Code(s): F17.219 - Nicotine dependence, cigarettes, with unspecified nicotine-induced disorders Subjective Principal diagnosis: Acute respiratory distress secondary to COPD exacerbation possible pneumo Interval history: No acute events overnight. Remains on vent fairly minimal sedation but she has had periods of intense agitation where she started hitting the side rails. Objective PUL Vital signs: Last Vital Signs Temp 96.6 F L 10/15/18 04:00 Pulse 75 10/15/18 06:00 Resp 12 10/15/18 06:23 BP 108/59 10/15/18 06:23 Pulse Ox 90 10/15/18 06:23 General appearance: other (She is calm and appears comfortable when I examined her) Eyes: nonicteric ENT: other (Endotracheal tube noted in satisfactory position) Neck: supple Auscultation: bilateral: diminished breath sounds, wheezes Cardiovascular: regular rate and rhythm Gastrointestinal: normoactive bowel sounds, soft, non-tender Integumentary: other (Bilateral erythema noted in the lower extremities which appears chronic for the patient) Extremities: edema Musculoskeletal: no deformities normal mental status, non-focal exam mood appropriate Ventilator Settings Ventilator Settings: Ventilator Settings, Last 8 Hours Ventilator Tidal Volume 500 Setting Ventilator Tidal Volume 500 Setting Ventilator Tidal Volume 500 Setting Ventilator Tidal Volume 500 Setting Ventilator Tidal Volume 500 Setting Ventilator Tidal Volume 500 Setting Ventilator Tidal Volume 500 Setting Ventilator Tidal Volume 500 Setting Ventilator Tidal Volume 500 Setting Ventilator Tidal Volume 500 Setting Ventilator Tidal Volume 500 Setting Ventilator Tidal Volume 500 Setting Ventilator Tidal Volume 500 Setting Ventilator Respiratory Rate 14 Setting Ventilator Respiratory Rate 14 Setting Ventilator Respiratory Rate 14 Setting Ventilator Respiratory Rate 14 Setting Ventilator Respiratory Rate 14 Setting Ventilator Respiratory Rate 14 Setting Ventilator Respiratory Rate 14 Setting Ventilator Respiratory Rate 14 Setting Ventilator Respiratory Rate 14 Setting Ventilator Respiratory Rate 14 Setting Ventilator Respiratory Rate 14 Setting Ventilator Respiratory Rate 14 Setting Ventilator Respiratory Rate 14 Setting Actual Respiratory Rate 14 Actual Respiratory Rate 14 Actual Respiratory Rate 14 Actual Respiratory Rate 14 Actual Respiratory Rate 14 Actual Respiratory Rate 14 Actual Respiratory Rate 14 Actual Respiratory Rate 14 Actual Respiratory Rate 14 Actual Respiratory Rate 14 Actual Respiratory Rate 14 Actual Respiratory Rate 14 Positive End Expiratory 5 Pressure Positive End Expiratory 5 Pressure Positive End Expiratory 5 Pressure Positive End Expiratory 5 Pressure Positive End Expiratory 5 Pressure Positive End Expiratory 5 Pressure Positive End Expiratory 5 Pressure Positive End Expiratory 5 Pressure Positive End Expiratory 5 Pressure Positive End Expiratory 5 Pressure Positive End Expiratory 5 Pressure Positive End Expiratory 5 Pressure Positive End Expiratory 5 Pressure Peak Inspiratory Airway 20 Pressure Peak Inspiratory Airway 22 Pressure Peak Inspiratory Airway 18 Pressure Peak Inspiratory Airway 22 Pressure Peak Inspiratory Airway 22 Pressure Peak Inspiratory Airway 20 Pressure Peak Inspiratory Airway 19 Pressure Peak Inspiratory Airway 19 Pressure Peak Inspiratory Airway 19 Pressure Peak Inspiratory Airway 20 Pressure Peak Inspiratory Airway 19 Pressure Peak Inspiratory Airway 21 Pressure Results - Laboratory Findings CBC and BMP: 10/15/18 04:02 10/15/18 04:02 ABG ABG pH 7.34 pH Units (7.32-7.45) 10/15/18 05:28 ABG pCO2 68 mmHg (35-45) H 10/15/18 05:28 ABG pO2 55 mmHg (85-104) L 10/15/18 05:28 ABG O2 Saturation 85 % (95-98) L 10/15/18 05:28 PT/INR, D-dimer PT 11.6 Seconds (9.4-12.1) 10/12/18 19:25 Abnormal lab findings: Abnormal lab results RBC 3.23 M/mcL (3.82-4.97) L 10/15/18 04:02 Hgb 9.7 g/dL (11.5-15.4) L 10/15/18 04:02 Hct 30.4 % (35.3-44.9) L 10/15/18 04:02 Lymphocytes # 0.4 K/mcL (0.6-4.6) L 10/15/18 04:02 ABG pCO2 68 mmHg (35-45) H 10/15/18 05:28 ABG pO2 55 mmHg (85-104) L 10/15/18 05:28 ABG HCO3 37 mEq/L (21-27) H 10/15/18 05:28 ABG Total CO2 39 mEq/L (20-26) H 10/15/18 05:28 ABG O2 Saturation 85 % (95-98) L 10/15/18 05:28 ABG Base Excess 9 mEq/L (-2 to 3) H 10/15/18 05:28 Carbon Dioxide 33 mEq/L (23-29) H 10/15/18 04:02 BUN 39 mg/dL (8-23) H 10/15/18 04:02 Est GFR ( Amer) 54 (> 60) L 10/15/18 04:02 Est GFR (Non-Af Amer) 44 (> 60) L 10/15/18 04:02 BUN/Creatinine Ratio 33 (6-26) H 10/15/18 04:02 Glucose 163 mg/dL (70-105) H 10/15/18 04:02 POC Glucose 222 mg/dL (70-99) H 10/14/18 23:28 B-Natriuretic Peptide 341 pg/mL (Less than 100) H 10/12/18 19:25 Urine Protein 100 mg/dL (Neg-Trace) H 10/12/18 21:10 Urine Ketones Trace mg/dL (Negative) H 10/12/18 21:10 Urine Blood Trace (Negative) H 10/12/18 21:10 Urine Microscopic RBC 3-5 per hpf (0-3) H 10/12/18 21:10 Ur Squamous Epith Cells Many per lpf (None-Few) H 10/12/18 21:10 Fluid Appearance Hazy (Clear) A 10/13/18 10:10 - Microbiology Findings Microbiology Findings: Microbiology, Last 48 Hours 10/13/18 10:10 Respiratory Culture - Preliminary Left Lower Lobe Lung 10/13/18 10:10 Fungal Culture - Preliminary Left Lower Lobe Lung Culture is incubating. 10/13/18 01:05 Legionella Antigen - Final Urine,Clean Catch Streptococcus pneumoniae Antigen (M - Final 10/12/18 19:25 Blood Culture - Preliminary Peripheral Venipuncture Culture is incubating and being continuously monitored for growth. Final report to follow. 10/12/18 19:25 Blood Culture - Preliminary Peripheral Venipuncture Culture is incubating and being continuously monitored for growth. Final report to follow. - Clinical Findings Intake & Output: Intake & Output 10/14/18 10/14/18 10/15/18 15:59 23:59 07:59 Intake Total 401.9 / 401.9 1147 / 1147 711 / 711 Output Total 150 / 150 250 / 250 225 / 225 Balance 251.9 / 251.9 897 / 897 486 / 486 Weight 86 kg Consult Discharge Plan - Plan Referrals: NONE,PCP [Primary Care Provider] -
[2018-10-15] MEDS: Budesonide/Formoterol 160/4.5 1 PUFF INH IH SCH ×2 (07:35→20:25)
[2018-10-15] MEDS: Chlorhexidine Rinse 15 ML MOUTHWASH MM SCH ×2 (07:53→20:50)
[2018-10-15] MEDS: Miconazole 2% ointment 114 GM TUBE TP SCH ×2 (07:53→20:24)
[2018-10-15] MEDS: Furosemide 20 MG/2 ML VIAL IVP SCH (07:53)
[2018-10-15] MEDS: Pantoprazole 40 MG VIAL IVP SCH (07:53)
[2018-10-15 08:32] LABS: Magnesium 2.4 mg/dL (1.6-2.6)
[2018-10-15] MEDS: Dexmedetomidine HCl 400 MCG/100 ML MLS IVC SCH ×3 (09:20→20:49)
[2018-10-15] MEDS: *HR* Metoprolol 5 MG/5 ML VIAL IVP PRN ×2 (15:34→17:06)
[2018-10-15 18:39] LABS: Troponin I 0.03 ng/mL (< 0.04)
[2018-10-15 18:53] LABS: Thyroid Stimulating Hormone 18.059 mcIU/mL (0.340-5.600)
[2018-10-15] MEDS ORDERED: Furosemide 20 MG/2 ML VIAL IVP ONE (19:53)
[2018-10-15 20:41] LABS: BUN/Creatinine Ratio 41 (6-26); Blood Urea Nitrogen 41 mg/dL (8-23); Calcium 8.6 mg/dL (8.6-10.3); Carbon Dioxide 32 mEq/L (23-29); Chloride 101 mEq/L (98-107); Glucose 186 mg/dL (70-105); Osmolality,Calculated 293 (280-300); Potassium 4.2 mEq/L (3.5-5.1); Sodium 134 mEq/L (136-145); eGFR For Non-African Americans 54 (> 60)
[2018-10-15] MEDS: Azithromycin 500 MG in D5% in Water 250 ML IVPB SCH (20:48)
[2018-10-15] MEDS: cefTRIAXone 2,000 MG in Water for inj. (sterile) 20 ML 20 ML IVP SCH (20:48)
[2018-10-16] MEDS: Insulin LISPRO 300 UNITS/3 ML VIAL SQ SCH ×7 (00:25→23:13)
[2018-10-16] MEDS: Artificial Tears SOLN 15 ML BOTTLE BOTH EYES SCH ×3 (00:26→08:06)
[2018-10-16] MEDS: Ipratropium/Albuterol Neb 3 ML IH SCH ×7 (00:27→23:59)
[2018-10-16] MEDS: Dexmedetomidine HCl 400 MCG/100 ML MLS IVC SCH ×2 (03:12→14:27)
[2018-10-16] MEDS: MethylPREDNISolone 40 MG/ML VIAL IVP SCH ×2 (03:12→11:47)
[2018-10-16] MEDS: FentaNYL (PF) 1,000 MCG in 0.9 % Sodium Chloride 80 ML IVC SCH (03:13)
[2018-10-16 04:11] LABS: Basophils % 0.2 %; Hematocrit 33.6 % (35.3-44.9); Hemoglobin 10.9 g/dL (11.5-15.4); Immature Granulocytes % 1.4 % (0-4); Lymphocytes # 0.5 K/mcL (0.6-4.6); Lymphocytes % 8.2 %; Mean Corpuscular HGB Conc 32.4 g/dL (31.6-35.5); Mean Corpuscular Hemoglobin 29.8 pg (28.0-33.3); Mean Corpuscular Volume 91.8 fL (83.0-100.0); Mean Platelet Volume 10.4 fL (9.4-12.4); Monocytes # 0.4 K/mcL (0.0-1.3); Monocytes % 5.7 %; Neutrophils # 5.3 K/mcL (1.6-8.9); Platelet Count 198 K/mcL (140-400); Red Blood Count 3.66 M/mcL (3.82-4.97); Red Cell Distribution Width 13.7 % (11.5-14.5); Segmented Neutrophils % 84.5 %
[2018-10-16 04:24] LABS: BUN/Creatinine Ratio 46 (6-26); Blood Urea Nitrogen 41 mg/dL (8-23); Calcium 8.4 mg/dL (8.6-10.3); Carbon Dioxide 35 mEq/L (23-29); Chloride 98 mEq/L (98-107); Glucose 181 mg/dL (70-105); Osmolality,Calculated 305 (280-300); Potassium 3.8 mEq/L (3.5-5.1); Sodium 140 mEq/L (136-145); eGFR For Non-African Americans > 60 (> 60)
[2018-10-16] MEDS: *HR* Heparin 5,000 UNIT/ML VIAL SQ SCH ×2 (05:09→17:47)
[2018-10-16 05:26] LABS: ABG Base Excess 10 mEq/L (-2 to 3); ABG HCO3 37 mEq/L (21-27); ABG Oxygen Saturation 87 % (95-98); ABG PCO2 61 mmHg (35-45); ABG PH 7.39 pH Units (7.32-7.45); ABG PO2 55 mmHg (85-104); ABG TCO2 39 mEq/L (20-26); Blood Gas PEEP 5 cm H2O; Blood Gas Respiration Rate 14; Blood Gas VT 500 cc
[2018-10-16] MEDS: Budesonide/Formoterol 160/4.5 1 PUFF INH IH SCH ×2 (08:00→19:55)
[2018-10-16] MEDS: Furosemide 20 MG/2 ML VIAL IVP SCH (08:05)
[2018-10-16] MEDS: Miconazole 2% ointment 114 GM TUBE TP SCH ×2 (08:06→20:28)
[2018-10-16] MEDS: Pantoprazole 40 MG VIAL IVP SCH (08:06)
[2018-10-16] MEDS: Chlorhexidine Rinse 15 ML MOUTHWASH MM SCH (08:06)
[2018-10-16] MEDS ORDERED: Levothyroxine Sodium 100 MCG VIAL IVP ONE (08:29)
[2018-10-16] MEDS ORDERED: Furosemide 20 MG/2 ML VIAL IVP ONE (08:36)
--- NOTE | 2018-10-16 08:53 | Pulmonology Progress Note ---
Date of Encounter: 10/16/18 Time of Encounter: 08:51 Assessment and Plan (1) Acute respiratory failure with hypoxia and hypercapnia Current Visit: No Status: Acute In conclusion Lilly Jhaveri has advanced emphysema complicated by chronic respiratory failure presenting with acute on chronic hypoxic hypercapnic respiratory failure secondary to COPD exacerbation possibly from pneumonia. She remains intubated however passed SBT with favorable liberation parameters. Plan for extubation to Bipap today Start antihypertensives Increase dose of Lasix Cont Steroids transition to oral glucocorticoids once taking by mouth Continue bronchodilators including Symbicort Continue Tx for CAP x 7 days Nicotine patch will be provided and smoking cessation counseling given prior to discharge from the hospital DVT prophy/PPI/VAP while on Vent. Skin care per Routine ICU protocol (2) Acute exacerbation of chronic obstructive airways disease Current Visit: No Status: Acute (3) Pulmonary edema Current Visit: No Status: Resolved Qualifiers: Chronicity: acute Qualified Code(s): J81.0 - Acute pulmonary edema (4) Nicotine dependence Current Visit: No Status: Chronic Qualifiers: Nicotine product type: cigarettes Substance use status: unspecified nicotine-induced disorder Qualified Code(s): F17.219 - Nicotine dependence, cigarettes, with unspecified nicotine-induced disorders Subjective Principal diagnosis: Acute respiratory distress secondary to COPD exacerbation possible pneumo Interval history: No acute events overnight. Remains hemodynamically stable. She denies being in any pain she is anxious to have the endotracheal tube removed Objective PUL Vital signs: Last Vital Signs Temp 97.7 F 10/16/18 08:43 Pulse 77 10/16/18 06:00 Resp 23 10/16/18 08:36 BP 150/88 10/16/18 06:21 Pulse Ox 93 10/16/18 08:02 General appearance: no acute distress ENT: other (ETT noted in satisfactory position ) Neck: supple, JVD Auscultation: bilateral: rales Cardiovascular: regular rate and rhythm Gastrointestinal: normoactive bowel sounds, soft, non-tender Integumentary: erythema (b/l LE ext's (chronic appearing) with venous stasis changes ) Extremities: no cyanosis, no clubbing, pulses normal, edema Musculoskeletal: no deformities normal mental status, non-focal exam mood appropriate (occasional episodes of agitation ) Ventilator Settings Ventilator Settings: Ventilator Settings, Last 8 Hours Ventilator Tidal Volume 500 Setting Ventilator Tidal Volume 500 Setting Ventilator Tidal Volume 500 Setting Ventilator Tidal Volume 500 Setting Ventilator Tidal Volume 500 Setting Ventilator Tidal Volume 500 Setting Ventilator Tidal Volume 500 Setting Ventilator Tidal Volume 500 Setting Ventilator Tidal Volume 500 Setting Ventilator Respiratory Rate 14 Setting Ventilator Respiratory Rate 14 Setting Ventilator Respiratory Rate 14 Setting Ventilator Respiratory Rate 14 Setting Ventilator Respiratory Rate 14 Setting Ventilator Respiratory Rate 14 Setting Ventilator Respiratory Rate 14 Setting Ventilator Respiratory Rate 14 Setting Ventilator Respiratory Rate 14 Setting Actual Respiratory Rate 21 Actual Respiratory Rate 14 Actual Respiratory Rate 14 Actual Respiratory Rate 14 Actual Respiratory Rate 14 Actual Respiratory Rate 15 Actual Respiratory Rate 14 Actual Respiratory Rate 16 Actual Respiratory Rate 15 Positive End Expiratory 5 Pressure Positive End Expiratory 5 Pressure Positive End Expiratory 5 Pressure Positive End Expiratory 5 Pressure Positive End Expiratory 5 Pressure Positive End Expiratory 5 Pressure Positive End Expiratory 5 Pressure Positive End Expiratory 5 Pressure Positive End Expiratory 5 Pressure Positive End Expiratory 5 Pressure Peak Inspiratory Airway 11 Pressure Peak Inspiratory Airway 18 Pressure Peak Inspiratory Airway 19 Pressure Peak Inspiratory Airway 20 Pressure Peak Inspiratory Airway 20 Pressure Peak Inspiratory Airway 21 Pressure Peak Inspiratory Airway 20 Pressure Peak Inspiratory Airway 20 Pressure Peak Inspiratory Airway 20 Pressure Results - Laboratory Findings CBC and BMP: 10/16/18 03:49 10/16/18 03:49 ABG ABG pH 7.39 pH Units (7.32-7.45) 10/16/18 05:23 ABG pCO2 61 mmHg (35-45) H 10/16/18 05:23 ABG pO2 55 mmHg (85-104) L 10/16/18 05:23 ABG O2 Saturation 87 % (95-98) L 10/16/18 05:23 PT/INR, D-dimer PT 11.6 Seconds (9.4-12.1) 10/12/18 19:25 Abnormal lab findings: Abnormal lab results RBC 3.66 M/mcL (3.82-4.97) L 10/16/18 03:49 Hgb 10.9 g/dL (11.5-15.4) L 10/16/18 03:49 Hct 33.6 % (35.3-44.9) L 10/16/18 03:49 Lymphocytes # 0.5 K/mcL (0.6-4.6) L 10/16/18 03:49 ABG pCO2 61 mmHg (35-45) H 10/16/18 05:23 ABG pO2 55 mmHg (85-104) L 10/16/18 05:23 ABG HCO3 37 mEq/L (21-27) H 10/16/18 05:23 ABG Total CO2 39 mEq/L (20-26) H 10/16/18 05:23 ABG O2 Saturation 87 % (95-98) L 10/16/18 05:23 ABG Base Excess 10 mEq/L (-2 to 3) H 10/16/18 05:23 Carbon Dioxide 35 mEq/L (23-29) H 10/16/18 03:49 BUN 41 mg/dL (8-23) H 10/16/18 03:49 BUN/Creatinine Ratio 46 (6-26) H 10/16/18 03:49 Glucose 181 mg/dL (70-105) H 10/16/18 03:49 POC Glucose 254 mg/dL (70-99) H 10/15/18 23:56 Calculated Osmolality 305 (280-300) H 10/16/18 03:49 Calcium 8.4 mg/dL (8.6-10.3) L 10/16/18 03:49 B-Natriuretic Peptide 181 pg/mL (Less than 100) H 10/15/18 17:33 TSH 18.059 mcIU/mL (0.340-5.600) H 10/15/18 17:36 Urine Protein 100 mg/dL (Neg-Trace) H 10/12/18 21:10 Urine Ketones Trace mg/dL (Negative) H 10/12/18 21:10 Urine Blood Trace (Negative) H 10/12/18 21:10 Urine Microscopic RBC 3-5 per hpf (0-3) H 10/12/18 21:10 Ur Squamous Epith Cells Many per lpf (None-Few) H 10/12/18 21:10 Fluid Appearance Hazy (Clear) A 10/13/18 10:10 - Microbiology Findings Microbiology Findings: Microbiology, Last 48 Hours 10/13/18 10:10 Respiratory Culture - Final Left Lower Lobe Lung Corynebacterium striatum 10/13/18 10:10 Acid Fast Stain - Final Left Lower Lobe Lung 10/13/18 10:10 Fungal Culture - Preliminary Left Lower Lobe Lung Culture is incubating. - Diagnostic Findings Chest x-ray: report reviewed, image reviewed - Clinical Findings Intake & Output: Intake & Output 10/15/18 10/16/18 10/16/18 23:59 07:59 15:59 Intake Total 849.5 / 849.5 843.7 / 843.7 Output Total 700 / 700 1200 / 1200 325 / 325 Balance 149.5 / 149.5 -356.3 / -356.3 -325 / -325 Weight 85 kg Consult Discharge Plan - Plan Referrals: NONE,PCP [Primary Care Provider] -
[2018-10-16] MEDS: amLODIPine 5 MG TABLET PO SCH (08:54)
[2018-10-16] MEDS: Doxycycline 100 MG CAPSULE PO SCH ×2 (11:47→20:27)
[2018-10-16] MEDS ORDERED: Promethazine 12.5 MG in 0.9 % Sodium Chloride 50 ML IVPB ONE (17:02)
[2018-10-16] MEDS ORDERED: *HR* Promethazine 25 MG/ML VIAL IVP ONE (17:27)
[2018-10-16] MEDS ORDERED: *HR* Promethazine 25 MG/ML VIAL ONE (17:30)
[2018-10-16] MEDS: Furosemide 40 MG/4 ML VIAL IVP SCH (17:47)
[2018-10-16] MEDS: cefTRIAXone 2,000 MG in Water for inj. (sterile) 20 ML 20 ML IVP SCH (20:27)
[2018-10-16 21:16] LABS: ABG Base Excess 16 mEq/L (-2 to 3); ABG HCO3 42 mEq/L (21-27); ABG Oxygen Saturation 90 % (95-98); ABG PCO2 52 mmHg (35-45); ABG PH 7.51 pH Units (7.32-7.45); ABG PO2 54 mmHg (85-104); ABG TCO2 44 mEq/L (20-26); Blood Gas PEEP 6 cm H2O
[2018-10-16] MEDS ORDERED: *HR* LORazepam 2 MG/ML VIAL IVP ONE ×2 (21:20)
[2018-10-17] MEDS: Dexmedetomidine HCl 400 MCG/100 ML MLS IVC SCH ×2 (00:02→10:43)
[2018-10-17 00:03] LABS: ABG Base Excess 13 mEq/L (-2 to 3); ABG HCO3 38 mEq/L (21-27); ABG Oxygen Saturation 91 % (95-98); ABG PCO2 50 mmHg (35-45); ABG PH 7.49 pH Units (7.32-7.45); ABG PO2 57 mmHg (85-104); ABG TCO2 40 mEq/L (20-26); Blood Gas PEEP 6 cm H2O
[2018-10-17] MEDS: Insulin LISPRO 300 UNITS/3 ML VIAL SQ SCH ×5 (03:42→19:54)
[2018-10-17] MEDS: Ipratropium/Albuterol Neb 3 ML IH SCH ×6 (04:01→23:50)
[2018-10-17] MEDS ORDERED: Haloperidol Lactate 5 MG/ML VIAL IVP ONE (04:09)
[2018-10-17 04:20] LABS: VBG Ionized Calcium 1.06 mmol/L (1.15-1.35)
[2018-10-17 04:32] LABS: Basophils % 0.3 %; Eosinophils % 0.6 %; Hematocrit 35.2 % (35.3-44.9); Hemoglobin 11.4 g/dL (11.5-15.4); Immature Granulocytes % 1.9 % (0-4); Lymphocytes # 0.9 K/mcL (0.6-4.6); Lymphocytes % 13.1 %; Mean Corpuscular HGB Conc 32.4 g/dL (31.6-35.5); Mean Corpuscular Hemoglobin 29.9 pg (28.0-33.3); Mean Corpuscular Volume 92.4 fL (83.0-100.0); Mean Platelet Volume 10.1 fL (9.4-12.4); Monocytes # 0.5 K/mcL (0.0-1.3); Monocytes % 7.3 %; Neutrophils # 5.4 K/mcL (1.6-8.9); Platelet Count 215 K/mcL (140-400); Red Blood Count 3.81 M/mcL (3.82-4.97); Segmented Neutrophils % 76.8 %
[2018-10-17 04:44] LABS: BUN/Creatinine Ratio 40 (6-26); Blood Urea Nitrogen 31 mg/dL (8-23); Calcium 8.8 mg/dL (8.6-10.3); Carbon Dioxide 40 mEq/L (23-29); Chloride 99 mEq/L (98-107); Glucose 124 mg/dL (70-105); Osmolality,Calculated 300 (280-300); Sodium 141 mEq/L (136-145); eGFR For Non-African Americans > 60 (> 60)
[2018-10-17] MEDS: *HR* Heparin 5,000 UNIT/ML VIAL SQ SCH ×2 (06:29→17:46)
--- NOTE | 2018-10-17 07:21 | Pulmonology Progress Note ---
Date of Encounter: 10/17/18 Time of Encounter: 07:21 Assessment and Plan (1) Acute respiratory failure with hypoxia and hypercapnia Current Visit: No Status: Acute In conclusion Lilly Jhaveri has advanced emphysema complicated by chronic respiratory failure presenting with acute on chronic hypoxic hypercapnic respiratory failure secondary to COPD exacerbation possibly from pneumonia. Currently tenuous high risk for worsening respiratory failure requiring reintubation this is in large part I suspect related to hydrostatic pulmonary edema and hypertension also mental status changes with persistent anxiety requiring sedatives which showed decreased respiratory drive despite the use of Precedex. Blood pressure has been labile we will have to transition to IV antihypertensives may consider nicardipine infusion of remains persistently hypertensive Continue twice a day dosing of Lasix she said acceptable urine output were followed up her electrolytes daily Cont Steroids transition to oral glucocorticoids once taking by mouth Continue bronchodilators including Symbicort Continue Tx for CAP x 7 days Nicotine patch will be provided and smoking cessation counseling given prior to discharge from the hospital Which converted to her thyroxine to IV formulation she had increased TSH during this admission DVT prophy given Skin care per Routine ICU protocol Full code (2) Acute exacerbation of chronic obstructive airways disease Current Visit: No Status: Acute (3) Pulmonary edema Current Visit: No Status: Resolved Qualifiers: Chronicity: acute Qualified Code(s): J81.0 - Acute pulmonary edema (4) Nicotine dependence Current Visit: No Status: Chronic Qualifiers: Nicotine product type: cigarettes Substance use status: unspecified nicotine-induced disorder Qualified Code(s): F17.219 - Nicotine dependence, cigarettes, with unspecified nicotine-induced disorders Subjective Principal diagnosis: Acute respiratory distress secondary to COPD exacerbation possible pneumo Interval history: Patient was successfully liberated from the vent yesterday. She has had a tenuous respiratory status this morning precipitated large part by agitation no serious somnolent on BiPAP after administration of benzodiazepine because of an xiety. She is has also had persistent hypertension. Per nursing staff she was noted to choke when taking by mouth yesterday and so remains nothing by mouth. Objective PUL Vital signs: Last Vital Signs Temp 97.7 F 10/17/18 06:43 Pulse 87 10/17/18 06:00 Resp 29 10/17/18 06:00 BP 178/93 10/17/18 06:00 Pulse Ox 92 10/17/18 06:00 General appearance: lethargic, other (She is somnolent but able to follow simple commands and open her eyes to my voice she localizes to pain) Eyes: nonicteric ENT: oropharynx dry Neck: supple Effort: mildly labored Auscultation: bilateral: rales Cardiovascular: regular rate and rhythm Gastrointestinal: soft, non-tender Integumentary: erythema (Chronic lower extremity erythema noted), other (Scattered areas of ecchymosis over the abdomen unchanged from previous examinations) Extremities: no cyanosis, no clubbing, pink and warm, edema Musculoskeletal: no deformities pupils equal and round, other (She is somnolent but able to be aroused she has symmetric motor strength in the bilateral upper and lower extremities, sensation is grossly intact) Results - Laboratory Findings CBC and BMP: 10/17/18 03:50 10/17/18 03:50 ABG ABG pH 7.49 pH Units (7.32-7.45) H 10/17/18 00:00 ABG pCO2 50 mmHg (35-45) H 10/17/18 00:00 ABG pO2 57 mmHg (85-104) L 10/17/18 00:00 ABG O2 Saturation 91 % (95-98) L 10/17/18 00:00 PT/INR, D-dimer PT 11.6 Seconds (9.4-12.1) 10/12/18 19:25 Abnormal lab findings: Abnormal lab results RBC 3.81 M/mcL (3.82-4.97) L 10/17/18 03:50 Hgb 11.4 g/dL (11.5-15.4) L 10/17/18 03:50 Hct 35.2 % (35.3-44.9) L 10/17/18 03:50 ABG pH 7.49 pH Units (7.32-7.45) H 10/17/18 00:00 ABG pCO2 50 mmHg (35-45) H 10/17/18 00:00 ABG pO2 57 mmHg (85-104) L 10/17/18 00:00 ABG HCO3 38 mEq/L (21-27) H 10/17/18 00:00 ABG Total CO2 40 mEq/L (20-26) H 10/17/18 00:00 ABG O2 Saturation 91 % (95-98) L 10/17/18 00:00 ABG Base Excess 13 mEq/L (-2 to 3) H 10/17/18 00:00 Potassium 3.0 mEq/L (3.5-5.1) L 10/17/18 03:50 Carbon Dioxide 40 mEq/L (23-29) H* 10/17/18 03:50 BUN 31 mg/dL (8-23) H 10/17/18 03:50 BUN/Creatinine Ratio 40 (6-26) H 10/17/18 03:50 Glucose 124 mg/dL (70-105) H 10/17/18 03:50 POC Glucose 119 mg/dL (70-99) H 10/16/18 23:07 Venous Ioniz Calcium 1.06 mmol/L (1.15-1.35) L 10/17/18 04:18 B-Natriuretic Peptide 181 pg/mL (Less than 100) H 10/15/18 17:33 TSH 18.059 mcIU/mL (0.340-5.600) H 10/15/18 17:36 Urine Protein 100 mg/dL (Neg-Trace) H 10/12/18 21:10 Urine Ketones Trace mg/dL (Negative) H 10/12/18 21:10 Urine Blood Trace (Negative) H 10/12/18 21:10 Urine Microscopic RBC 3-5 per hpf (0-3) H 10/12/18 21:10 Ur Squamous Epith Cells Many per lpf (None-Few) H 10/12/18 21:10 Fluid Appearance Hazy (Clear) A 10/13/18 10:10 - Microbiology Findings Microbiology Findings: Microbiology, Last 48 Hours 10/13/18 10:10 Respiratory Culture - Final Left Lower Lobe Lung Corynebacterium striatum 10/13/18 10:10 Acid Fast Stain - Final Left Lower Lobe Lung - Clinical Findings Intake & Output: Intake & Output 10/16/18 10/16/18 10/17/18 15:59 23:59 07:59 Intake Total 36 / 36 42 / 42 133.5 / 133.5 Output Total 1775 / 1775 2975 / 2975 700 / 700 Balance -1739 / -1739 -2933 / -2933 -566.5 / -566.5 Weight 82 kg Consult Discharge Plan - Plan Referrals: NONE,PCP [Primary Care Provider] -
[2018-10-17] MEDS: predniSONE 20 MG TABLET PO SCH ×2 (07:25→08:10)
[2018-10-17] MEDS: amLODIPine 5 MG TABLET PO SCH ×2 (07:25→08:10)
[2018-10-17] MEDS: Furosemide 40 MG/4 ML VIAL IVP SCH ×2 (07:25→16:13)
[2018-10-17] MEDS: Doxycycline 100 MG CAPSULE PO SCH ×2 (07:25→08:10)
[2018-10-17] MEDS: Pantoprazole 40 MG VIAL IVP SCH (07:26)
[2018-10-17] MEDS: Budesonide/Formoterol 160/4.5 1 PUFF INH IH SCH ×2 (07:53→20:09)
[2018-10-17] MEDS: *HR* Metoprolol 5 MG/5 ML VIAL IVP PRN (07:56)
[2018-10-17] MEDS: *HR* LORazepam 2 MG/ML VIAL IVP PRN ×2 (07:56→19:24)
[2018-10-17] MEDS ORDERED: Potassium Chloride 40 MEQ, Lidocaine 1% 2 ML in D5% in Water 500 ML IVPB ONE (08:00)
[2018-10-17] MEDS: Nicotine 21 MG PATCH.TD24 TD SCH (09:00)
[2018-10-17] MEDS ORDERED: *HR* Metoprolol 5 MG/5 ML VIAL IVP SCH (09:00)
[2018-10-17] MEDS: Levothyroxine Sodium 100 MCG VIAL IVP SCH (09:00)
[2018-10-17] MEDS: Miconazole 2% ointment 114 GM TUBE TP SCH ×2 (09:01→19:54)
[2018-10-17] MEDS: Doxycycline 100 MG in 0.9 % Sodium Chloride Mini Bag 100 ML IVPB SCH ×2 (10:01→21:25)
[2018-10-17] MEDS: MethylPREDNISolone 40 MG/ML VIAL IVP SCH (10:01)
[2018-10-17] MEDS ORDERED: *HR* Morphine 2 MG/ML SYRINGE IVP ONE (13:06)
[2018-10-17] MEDS: *HR* Metoprolol 5 MG/5 ML VIAL IVP SCH ×2 (14:46→19:57)
[2018-10-17] MEDS ORDERED: Potassium Chloride 20 MEQ, Lidocaine 1% 2 ML in D5% in Water 250 ML IVPB ONE (18:39)
[2018-10-17] MEDS: cefTRIAXone 2,000 MG in Water for inj. (sterile) 20 ML 20 ML IVP SCH (19:57)
[2018-10-18] MEDS: Insulin LISPRO 300 UNITS/3 ML VIAL SQ SCH ×7 (00:48→23:51)
[2018-10-18] MEDS: Ipratropium/Albuterol Neb 3 ML IH SCH ×6 (03:06→23:51)
[2018-10-18] MEDS: *HR* Metoprolol 5 MG/5 ML VIAL IVP SCH ×4 (03:53→20:58)
[2018-10-18 04:16] LABS: Basophils % 0.4 %; Eosinophils # 0.2 K/mcL (0.0-0.6); Eosinophils % 1.7 %; Hematocrit 35.8 % (35.3-44.9); Hemoglobin 11.5 g/dL (11.5-15.4); Immature Granulocytes % 2.1 % (0-4); Lymphocytes # 1.2 K/mcL (0.6-4.6); Lymphocytes % 12.2 %; Mean Corpuscular HGB Conc 32.1 g/dL (31.6-35.5); Mean Corpuscular Hemoglobin 30.1 pg (28.0-33.3); Mean Corpuscular Volume 93.7 fL (83.0-100.0); Monocytes # 0.7 K/mcL (0.0-1.3); Monocytes % 7.3 %; Neutrophils # 7.6 K/mcL (1.6-8.9); Platelet Count 213 K/mcL (140-400); Red Blood Count 3.82 M/mcL (3.82-4.97); Red Cell Distribution Width 14.1 % (11.5-14.5); Segmented Neutrophils % 76.3 %
[2018-10-18 04:21] LABS: VBG Ionized Calcium 1.09 mmol/L (1.15-1.35)
[2018-10-18] MEDS: *HR* Heparin 5,000 UNIT/ML VIAL SQ SCH ×2 (04:32→17:52)
[2018-10-18 04:37] LABS: BUN/Creatinine Ratio 43 (6-26); Blood Urea Nitrogen 30 mg/dL (8-23); Calcium 9.1 mg/dL (8.6-10.3); Carbon Dioxide 38 mEq/L (23-29); Chloride 96 mEq/L (98-107); Glucose 119 mg/dL (70-105); Magnesium 1.9 mg/dL (1.6-2.6); Osmolality,Calculated 303 (280-300); Phosphorous 2.9 mg/dL (2.7-4.5); Potassium 3.3 mEq/L (3.5-5.1); Sodium 143 mEq/L (136-145); eGFR For Non-African Americans > 60 (> 60)
[2018-10-18] MEDS ORDERED: Potassium Phosphate 44 MEQ in 0.9 % Sodium Chloride 250 ML IVPB ONE (05:47)
[2018-10-18] MEDS: Dexmedetomidine HCl 400 MCG/100 ML MLS IVC SCH ×2 (06:47→16:50)
--- NOTE | 2018-10-18 07:40 | Pulmonology Progress Note ---
<Abhishek Simpson - Last Filed: 10/18/18 11:35> Date of Encounter: 10/18/18 Time of Encounter: 07:38 Assessment and Plan (1) Acute on chronic respiratory failure with hypoxia and hypercapnia Current Visit: No Status: Acute This is a 73-year-old female with past medical history significant for COPD, CHF, depression, hypothyroidism, type 2 diabetes mellitus, tobacco use who initially presented to the ED in acute respiratory distress. Patient was intubated and transferred to ICU. - This patient has advanced emphysema complicated by respiratory failure and found to have acute on chronic hypoxic hypercapnic respiratory failure likely s econdary to COPD exacerbation from pneumonia. - Patient was extubated yesterday; currently on CPAP CXR (10/18/18): - Interval removal of endotrachela and enteric tubes - Small bilateral pleural effusions with adjacent atelectasis, left greater than right PLAN: Patient respiratory status improving. However complicated by likely pulmonary edema. Currently on BiPAP, improving. - Cont BIPAP throughout the day; monitor O2 sat; titrate to keep O2 > 88% - Cont bronchodilators, cont symbicort - Continue Lasix 40 mg twice a day for diuresis - Cont solumedrol QD; Transition to PO steroids when tolerating PO - Cont antibiotics for total of 7 days (2) Acute exacerbation of chronic obstructive airways disease Current Visit: No Status: Acute - Cont scheduled bronchodilators - Cont symbicort - Cont solumedrol QD (3) Pulmonary edema Current Visit: No Status: Resolved CXR (10/18/18): - Interval removal of endotrachela and enteric tubes - Small bilateral pleural effusions with adjacent atelectasis, left greater than right PLAN: - Cont BIPAP throughout the day - Cont Lasix BID Qualifiers: Chronicity: acute Qualified Code(s): J81.0 - Acute pulmonary edema (4) Hypertension Current Visit: No Status: Chronic PLAN: - Cont IV HTN meds - Titrate to keep systolic BP < 130 - Cont Lasix BID Qualifiers: Hypertension type: essential hypertension Qualified Code(s): I10 - Essential (primary) hypertension (5) Hypothyroidism Current Visit: No Status: Chronic PLAN: - Cont Synthroid Qualifiers: Hypothyroidism type: unspecified Qualified Code(s): E03.9 - Hypothyroidism, unspecified (6) Nicotine dependence Current Visit: No Status: Chronic PLAN: - Nicotine Patch PRN Qualifiers: Nicotine product type: cigarettes Substance use status: unspecified nicotine-induced disorder Qualified Code(s): F17.219 - Nicotine dependence, cigarettes, with unspecified nicotine-induced disorders Subjective Principal diagnosis: Acute respiratory distress secondary to COPD exacerbation possible pneumo Interval history: Pt seen and examined resting in bedside in no acute distress. No events reported overnight. Currently on CPAP. Vitals hemodynamically stable. BP remains controlled. Receiving mild sedation Precedex 0.4 mcg/kg/hr. Currently managed with ceftriaxone, doxycycline for treatment of CAP. Pt pending swallow eval today. Objective PUL Vital signs: Last Vital Signs Temp 97.4 F L 10/18/18 04:00 Pulse 74 10/18/18 07:27 Resp 27 10/18/18 06:00 BP 149/77 10/18/18 06:00 Pulse Ox 95 10/18/18 06:00 General appearance: no acute distress, asleep Eyes: nonicteric ENT: oropharynx moist Effort: normal Auscultation: bilateral: clear (No wheezes, rales, rhonchi) Cardiovascular: irregular rhythm (Irregular rhythm, regular rate; no murmurs, rubs, gallops appreciated) Gastrointestinal: soft, non-tender, non-distended Extremities: no edema unable to assess due to mental status Results - Laboratory Findings CBC and BMP: 10/18/18 04:08 10/18/18 04:08 ABG ABG pH 7.49 pH Units (7.32-7.45) H 10/17/18 00:00 ABG pCO2 50 mmHg (35-45) H 10/17/18 00:00 ABG pO2 57 mmHg (85-104) L 10/17/18 00:00 ABG O2 Saturation 91 % (95-98) L 10/17/18 00:00 PT/INR, D-dimer PT 11.6 Seconds (9.4-12.1) 10/12/18 19:25 Abnormal lab findings: Abnormal lab results ABG pH 7.49 pH Units (7.32-7.45) H 10/17/18 00:00 ABG pCO2 50 mmHg (35-45) H 10/17/18 00:00 ABG pO2 57 mmHg (85-104) L 10/17/18 00:00 ABG HCO3 38 mEq/L (21-27) H 10/17/18 00:00 ABG Total CO2 40 mEq/L (20-26) H 10/17/18 00:00 ABG O2 Saturation 91 % (95-98) L 10/17/18 00:00 ABG Base Excess 13 mEq/L (-2 to 3) H 10/17/18 00:00 Potassium 3.3 mEq/L (3.5-5.1) L 10/18/18 04:08 Chloride 96 mEq/L (98-107) L 10/18/18 04:08 Carbon Dioxide 38 mEq/L (23-29) H 10/18/18 04:08 BUN 30 mg/dL (8-23) H 10/18/18 04:08 BUN/Creatinine Ratio 43 (6-26) H 10/18/18 04:08 Glucose 119 mg/dL (70-105) H 10/18/18 04:08 POC Glucose 124 mg/dL (70-99) H 10/18/18 00:09 Calculated Osmolality 303 (280-300) H 10/18/18 04:08 Venous Ioniz Calcium 1.09 mmol/L (1.15-1.35) L 10/18/18 04:17 B-Natriuretic Peptide 181 pg/mL (Less than 100) H 10/15/18 17:33 TSH 18.059 mcIU/mL (0.340-5.600) H 10/15/18 17:36 Urine Protein 100 mg/dL (Neg-Trace) H 10/12/18 21:10 Urine Ketones Trace mg/dL (Negative) H 10/12/18 21:10 Urine Blood Trace (Negative) H 10/12/18 21:10 Urine Microscopic RBC 3-5 per hpf (0-3) H 10/12/18 21:10 Ur Squamous Epith Cells Many per lpf (None-Few) H 10/12/18 21:10 Fluid Appearance Hazy (Clear) A 10/13/18 10:10 - Microbiology Findings Microbiology Findings: Microbiology, Last 48 Hours 10/12/18 19:25 Blood Culture - Final Peripheral Venipuncture No growth. Final report. 10/12/18 19:25 Blood Culture - Final Peripheral Venipuncture No growth. Final report. 10/13/18 10:10 Respiratory Culture - Final Left Lower Lobe Lung Corynebacterium striatum - Clinical Findings Intake & Output: Intake & Output 10/17/18 10/17/18 10/18/18 15:59 23:59 07:59 Intake Total 622 / 622 436 / 436 46 / 46 Output Total 2150 / 2150 550 / 550 450 / 450 Balance -1528 / -1528 -114 / -114 -404 / -404 Weight 77.3 kg Consult Discharge Plan - Plan Referrals: NONE,PCP [Primary Care Provider] - <Dave Villegas - Last Filed: 10/18/18 17:23> Date of Encounter: 10/18/18 Objective PUL Vital signs: Last Vital Signs Temp 97.8 F 10/18/18 16:40 Pulse 80 10/18/18 16:00 Resp 29 10/18/18 16:00 BP 154/67 10/18/18 16:00 Pulse Ox 93 10/18/18 16:00 Results - Laboratory Findings CBC and BMP: 10/18/18 04:08 10/18/18 04:08 ABG ABG pH 7.46 pH Units (7.32-7.45) H 10/18/18 15:21 ABG pCO2 49 mmHg (35-45) H 10/18/18 15:21 ABG pO2 70 mmHg (85-104) L 10/18/18 15:21 ABG O2 Saturation 94 % (95-98) L 10/18/18 15:21 PT/INR, D-dimer PT 11.6 Seconds (9.4-12.1) 10/12/18 19:25 Abnormal lab findings: Abnormal lab results ABG pH 7.46 pH Units (7.32-7.45) H 10/18/18 15:21 ABG pCO2 49 mmHg (35-45) H 10/18/18 15:21 ABG pO2 70 mmHg (85-104) L 10/18/18 15:21 ABG HCO3 35 mEq/L (21-27) H 10/18/18 15:21 ABG Total CO2 36 mEq/L (20-26) H 10/18/18 15:21 ABG O2 Saturation 94 % (95-98) L 10/18/18 15:21 ABG Base Excess 9 mEq/L (-2 to 3) H 10/18/18 15:21 Potassium 3.3 mEq/L (3.5-5.1) L 10/18/18 04:08 Chloride 96 mEq/L (98-107) L 10/18/18 04:08 Carbon Dioxide 38 mEq/L (23-29) H 10/18/18 04:08 BUN 30 mg/dL (8-23) H 10/18/18 04:08 BUN/Creatinine Ratio 43 (6-26) H 10/18/18 04:08 Glucose 119 mg/dL (70-105) H 10/18/18 04:08 POC Glucose 124 mg/dL (70-99) H 10/18/18 00:09 Calculated Osmolality 303 (280-300) H 10/18/18 04:08 Venous Ioniz Calcium 1.09 mmol/L (1.15-1.35) L 10/18/18 04:17 B-Natriuretic Peptide 181 pg/mL (Less than 100) H 10/15/18 17:33 TSH 18.059 mcIU/mL (0.340-5.600) H 10/15/18 17:36 Urine Protein 100 mg/dL (Neg-Trace) H 10/12/18 21:10 Urine Ketones Trace mg/dL (Negative) H 10/12/18 21:10 Urine Blood Trace (Negative) H 10/12/18 21:10 Urine Microscopic RBC 3-5 per hpf (0-3) H 10/12/18 21:10 Ur Squamous Epith Cells Many per lpf (None-Few) H 10/12/18 21:10 Fluid Appearance Hazy (Clear) A 10/13/18 10:10 - Microbiology Findings Microbiology Findings: Microbiology, Last 48 Hours 10/12/18 19:25 Blood Culture - Final Peripheral Venipuncture No growth. Final report. 10/12/18 19:25 Blood Culture - Final Peripheral Venipuncture No growth. Final report. - Clinical Findings Intake & Output: Intake & Output 10/18/18 10/18/18 10/18/18 07:59 15:59 23:59 Intake Total 46 / 46 100 / 100 100 / 100 Output Total 450 / 450 1325 / 1325 475 / 475 Balance -404 / -404 -1225 / -1225 -375 / -375 Weight 77.3 kg - Attending Attestation I saw and evaluated this patient and my medical decision-making was reviewed with the Resident Physician. I agree with the documented findings, disposition and treatment plan as described except to the extent set forth below. We independently had [id number] contact with the patient I spent 35 minutes of Critical Care time with this patient. It involved decision making of high complexity to assess, manipulate, and support vital organ system failure and/or to prevent further life threatening deterioration of the patient's condition. The time involved in the performance of separately reportable procedures was not counted toward critical care time. Patient seen and examined at bedside Labs, radiology, chart personally reviewed. Management was reviewed during multidisciplinary critical care rounds. UROLOGY PHYSICIAN: Patient is slightly lethargic toxic/metabolic encephalopathy secondary to hypoxia she is following commands responding to meaningful conversation. Pulm: Patient has acceptable oxygenation and ventilation I repeated the blood gas the current hypoxic respiratory failure is secondary to pulmonary edema and did ultrasound lung patient has minimal bilateral pleural effusion not enough to do thoracentesis patient has extensive B lines consistent with pulmonary edema to continue diuresis Cards: Patient blood pressure is controlled with beta blockers and hydralazine FEN-GI: Patient is nothing by mouth as she is dependent on BiPAP Renal: Labs and output were reviewed to continue diuresis as tolerated ID: No evidence of pneumonia is more of pulmonary edema Heme/Onc: Labs reviewed Endo: Glucose Monitored Integ/MSK: Skin Care per routine ICU Nursing Protocol to prevent ulcers. Lines: All lines examined without evidence of infection : Dispo: Critically ill CODE: Full Code
[2018-10-18] MEDS: Budesonide/Formoterol 160/4.5 1 PUFF INH IH SCH ×2 (08:19→19:54)
[2018-10-18] MEDS: Pantoprazole 40 MG VIAL IVP SCH (08:59)
[2018-10-18] MEDS: MethylPREDNISolone 40 MG/ML VIAL IVP SCH (08:59)
[2018-10-18] MEDS: Levothyroxine Sodium 100 MCG VIAL IVP SCH (08:59)
[2018-10-18] MEDS: Furosemide 40 MG/4 ML VIAL IVP SCH ×2 (08:59→16:51)
[2018-10-18] MEDS: amLODIPine 5 MG TABLET PO SCH (09:05)
[2018-10-18] MEDS: Nicotine 21 MG PATCH.TD24 TD SCH (09:05)
[2018-10-18] MEDS: Miconazole 2% ointment 114 GM TUBE TP SCH ×2 (09:05→20:59)
[2018-10-18] MEDS: Doxycycline 100 MG in 0.9 % Sodium Chloride Mini Bag 100 ML IVPB SCH ×2 (10:00→20:58)
[2018-10-18] MEDS: *HR* LORazepam 2 MG/ML VIAL IVP PRN ×2 (11:14→18:28)
[2018-10-18] MEDS ORDERED: Haloperidol Lactate 5 MG/ML VIAL IVP ONE (12:51)
[2018-10-18 15:26] LABS: ABG Base Excess 9 mEq/L (-2 to 3); ABG HCO3 35 mEq/L (21-27); ABG Oxygen Saturation 94 % (95-98); ABG PCO2 49 mmHg (35-45); ABG PH 7.46 pH Units (7.32-7.45); ABG PO2 70 mmHg (85-104); ABG TCO2 36 mEq/L (20-26); Blood Gas PEEP 10 cm H2O
[2018-10-18] MEDS: cefTRIAXone 2,000 MG in Water for inj. (sterile) 20 ML 20 ML IVP SCH (20:57)
[2018-10-19] MEDS: Ipratropium/Albuterol Neb 3 ML IH SCH ×5 (03:26→20:10)
[2018-10-19] MEDS: *HR* Metoprolol 5 MG/5 ML VIAL IVP SCH ×4 (04:47→21:11)
[2018-10-19] MEDS: *HR* LORazepam 2 MG/ML VIAL IVP PRN ×3 (04:47→21:46)
[2018-10-19] MEDS: *HR* Heparin 5,000 UNIT/ML VIAL SQ SCH ×2 (04:47→17:59)
[2018-10-19] MEDS: Insulin LISPRO 300 UNITS/3 ML VIAL SQ SCH ×5 (04:48→21:12)
[2018-10-19 04:55] LABS: Basophils % 0.3 %; Eosinophils # 0.1 K/mcL (0.0-0.6); Hematocrit 35.6 % (35.3-44.9); Hemoglobin 11.2 g/dL (11.5-15.4); Immature Granulocytes % 1.7 % (0-4); Lymphocytes # 0.9 K/mcL (0.6-4.6); Lymphocytes % 10.1 %; Mean Corpuscular HGB Conc 31.5 g/dL (31.6-35.5); Mean Corpuscular Hemoglobin 29.6 pg (28.0-33.3); Mean Corpuscular Volume 94.2 fL (83.0-100.0); Mean Platelet Volume 9.9 fL (9.4-12.4); Monocytes # 0.6 K/mcL (0.0-1.3); Monocytes % 7.2 %; Platelet Count 206 K/mcL (140-400); Red Blood Count 3.78 M/mcL (3.82-4.97); Red Cell Distribution Width 14.3 % (11.5-14.5); Segmented Neutrophils % 79.7 %
[2018-10-19 05:19] LABS: BUN/Creatinine Ratio 47 (6-26); Blood Urea Nitrogen 37 mg/dL (8-23); Calcium 9.1 mg/dL (8.6-10.3); Carbon Dioxide 33 mEq/L (23-29); Chloride 100 mEq/L (98-107); Glucose 136 mg/dL (70-105); Magnesium 1.9 mg/dL (1.6-2.6); Osmolality,Calculated 313 (280-300); Phosphorous 3.8 mg/dL (2.7-4.5); Potassium 3.5 mEq/L (3.5-5.1); Sodium 146 mEq/L (136-145); eGFR For Non-African Americans > 60 (> 60)
[2018-10-19] MEDS: Dexmedetomidine HCl 400 MCG/100 ML MLS IVC SCH ×2 (06:26→16:18)
[2018-10-19] MEDS: Budesonide/Formoterol 160/4.5 1 PUFF INH IH SCH ×2 (07:19→20:10)
[2018-10-19] MEDS: Furosemide 40 MG/4 ML VIAL IVP SCH ×2 (08:03→18:00)
[2018-10-19] MEDS: MethylPREDNISolone 40 MG/ML VIAL IVP SCH (08:04)
[2018-10-19] MEDS: Levothyroxine Sodium 100 MCG VIAL IVP SCH (08:04)
[2018-10-19] MEDS: amLODIPine 5 MG TABLET PO SCH (08:04)
[2018-10-19] MEDS: Nicotine 21 MG PATCH.TD24 TD SCH (08:04)
[2018-10-19] MEDS: Pantoprazole 40 MG VIAL IVP SCH (08:04)
[2018-10-19] MEDS: Miconazole 2% ointment 114 GM TUBE TP SCH ×2 (08:05→21:12)
--- NOTE | 2018-10-19 08:10 | Pulmonology Progress Note ---
<Abhishek Simpson - Last Filed: 10/19/18 12:36> Date of Encounter: 10/19/18 Time of Encounter: 08:10 Assessment and Plan (1) Acute on chronic respiratory failure with hypoxia and hypercapnia Current Visit: No Status: Acute This is a 73-year-old female with past medical history significant for COPD, CHF, depression, hypothyroidism, type 2 diabetes mellitus, tobacco use who initially presented to the ED in acute respiratory distress. Patient was intubated and transferred to ICU. - This patient has advanced emphysema complicated by respiratory failure and found to have acute on chronic hypoxic hypercapnic respiratory failure likely s econdary to COPD exacerbation from pneumonia. - Patient was extubated yesterday; currently on CPAP CXR (10/18/18): - Interval removal of endotrachela and enteric tubes - Small bilateral pleural effusions with adjacent atelectasis, left greater than right PLAN: Patient respiratory status improving. However complicated by likely pulmonary edema. Switched from BIPAP to [place] High Flow O2. - Cont positive pressure ventilation throughout the day; monitor O2 sat; titrate to keep O2 > 88% - Cont bronchodilators, cont symbicort - Continue Lasix 40 mg twice a day for diuresis - Cont solumedrol QD; Transition to PO steroids when tolerating PO - Cont antibiotics for total of 7 days (2) Acute exacerbation of chronic obstructive airways disease Current Visit: No Status: Acute - Cont scheduled bronchodilators - Cont symbicort - Cont solumedrol QD (3) Pulmonary edema Current Visit: No Status: Resolved CXR (10/18/18): - Interval removal of endotrachela and enteric tubes - Small bilateral pleural effusions with adjacent atelectasis, left greater than right PLAN: - Cont PPV throughout the day - Cont Lasix BID Qualifiers: Chronicity: acute Qualified Code(s): J81.0 - Acute pulmonary edema (4) Hypertension Current Visit: No Status: Chronic PLAN: - Cont IV HTN meds - Titrate to keep systolic BP < 130 - Cont Lasix BID Qualifiers: Hypertension type: essential hypertension Qualified Code(s): I10 - Essential (primary) hypertension (5) Hypothyroidism Current Visit: No Status: Chronic PLAN: - Cont Synthroid Qualifiers: Hypothyroidism type: unspecified Qualified Code(s): E03.9 - Hypothyroidism, unspecified (6) Nicotine dependence Current Visit: No Status: Chronic PLAN: - Nicotine Patch PRN Qualifiers: Nicotine product type: cigarettes Substance use status: unspecified nicotine-induced disorder Qualified Code(s): F17.219 - Nicotine dependence, cigarettes, with unspecified nicotine-induced disorders Subjective Principal diagnosis: Acute respiratory distress secondary to COPD exacerbation possible pneumo Interval history: Pt seen and examined resting in bedside this morning, currently in no acute distress. No events reported overnight. Switched from CPAP to [facility] Hi Flow O2. Pt tolerating without complaints. Remains hemodynamically stable. Currently on precedex for sedation, and antibiotics rocephin and doxycycline. Objective PUL Vital signs: Last Vital Signs Temp 97.9 F 10/19/18 04:00 Pulse 84 10/19/18 07:47 Resp 26 10/19/18 07:19 BP 129/69 10/19/18 07:19 Pulse Ox 92 10/19/18 07:19 General appearance: no acute distress, alert ENT: oropharynx moist Effort: normal Auscultation: bilateral: diminished breath sounds (Decreased lung sounds b/l; no wheezes, rales, rhonchi, crackles) Cardiovascular: regular rate and rhythm, PVC's noted (Occasional ectopic beats noted; no murmurs, rubs, gallops) Integumentary: normal Extremities: no cyanosis, no edema non-focal exam, pupils equal and round, CN II-XII normal Results - Laboratory Findings CBC and BMP: 10/19/18 04:39 10/19/18 04:39 ABG ABG pH 7.46 pH Units (7.32-7.45) H 10/18/18 15:21 ABG pCO2 49 mmHg (35-45) H 10/18/18 15:21 ABG pO2 70 mmHg (85-104) L 10/18/18 15:21 ABG O2 Saturation 94 % (95-98) L 10/18/18 15:21 PT/INR, D-dimer PT 11.6 Seconds (9.4-12.1) 10/12/18 19:25 Abnormal lab findings: Abnormal lab results RBC 3.78 M/mcL (3.82-4.97) L 10/19/18 04:39 Hgb 11.2 g/dL (11.5-15.4) L 10/19/18 04:39 MCHC 31.5 g/dL (31.6-35.5) L 10/19/18 04:39 ABG pH 7.46 pH Units (7.32-7.45) H 10/18/18 15:21 ABG pCO2 49 mmHg (35-45) H 10/18/18 15:21 ABG pO2 70 mmHg (85-104) L 10/18/18 15:21 ABG HCO3 35 mEq/L (21-27) H 10/18/18 15:21 ABG Total CO2 36 mEq/L (20-26) H 10/18/18 15:21 ABG O2 Saturation 94 % (95-98) L 10/18/18 15:21 ABG Base Excess 9 mEq/L (-2 to 3) H 10/18/18 15:21 Sodium 146 mEq/L (136-145) H 10/19/18 04:39 Carbon Dioxide 33 mEq/L (23-29) H 10/19/18 04:39 BUN 37 mg/dL (8-23) H 10/19/18 04:39 BUN/Creatinine Ratio 47 (6-26) H 10/19/18 04:39 Glucose 136 mg/dL (70-105) H 10/19/18 04:39 POC Glucose 129 mg/dL (70-99) H 10/18/18 23:44 Calculated Osmolality 313 (280-300) H 10/19/18 04:39 Venous Ioniz Calcium 1.09 mmol/L (1.15-1.35) L 10/18/18 04:17 B-Natriuretic Peptide 181 pg/mL (Less than 100) H 10/15/18 17:33 TSH 18.059 mcIU/mL (0.340-5.600) H 10/15/18 17:36 Urine Protein 100 mg/dL (Neg-Trace) H 10/12/18 21:10 Urine Ketones Trace mg/dL (Negative) H 10/12/18 21:10 Urine Blood Trace (Negative) H 10/12/18 21:10 Urine Microscopic RBC 3-5 per hpf (0-3) H 10/12/18 21:10 Ur Squamous Epith Cells Many per lpf (None-Few) H 10/12/18 21:10 Fluid Appearance Hazy (Clear) A 10/13/18 10:10 - Microbiology Findings Microbiology Findings: Microbiology, Last 48 Hours 10/12/18 19:25 Blood Culture - Final Peripheral Venipuncture No growth. Final report. 10/12/18 19:25 Blood Culture - Final Peripheral Venipuncture No growth. Final report. - Clinical Findings Intake & Output: Intake & Output 10/18/18 10/19/18 10/19/18 23:59 07:59 15:59 Intake Total 220 / 220 100 / 100 Output Total 925 / 925 275 / 275 Balance -705 / -705 -175 / -175 Consult Discharge Plan - Plan Referrals: NONE,PCP [Primary Care Provider] - <Dave Villegas S - Last Filed: 10/19/18 14:32> Date of Encounter: 10/19/18 Objective PUL Vital signs: Last Vital Signs Temp 97.4 F L 10/19/18 12:32 Pulse 79 10/19/18 14:00 Resp 16 10/19/18 14:00 BP 151/76 10/19/18 14:00 Pulse Ox 95 10/19/18 14:00 Results - Laboratory Findings CBC and BMP: 10/19/18 04:39 10/19/18 04:39 ABG ABG pH 7.46 pH Units (7.32-7.45) H 10/18/18 15:21 ABG pCO2 49 mmHg (35-45) H 10/18/18 15:21 ABG pO2 70 mmHg (85-104) L 10/18/18 15:21 ABG O2 Saturation 94 % (95-98) L 10/18/18 15:21 PT/INR, D-dimer PT 11.6 Seconds (9.4-12.1) 10/12/18 19:25 Abnormal lab findings: Abnormal lab results RBC 3.78 M/mcL (3.82-4.97) L 10/19/18 04:39 Hgb 11.2 g/dL (11.5-15.4) L 10/19/18 04:39 MCHC 31.5 g/dL (31.6-35.5) L 10/19/18 04:39 ABG pH 7.46 pH Units (7.32-7.45) H 10/18/18 15:21 ABG pCO2 49 mmHg (35-45) H 10/18/18 15:21 ABG pO2 70 mmHg (85-104) L 10/18/18 15:21 ABG HCO3 35 mEq/L (21-27) H 10/18/18 15:21 ABG Total CO2 36 mEq/L (20-26) H 10/18/18 15:21 ABG O2 Saturation 94 % (95-98) L 10/18/18 15:21 ABG Base Excess 9 mEq/L (-2 to 3) H 10/18/18 15:21 Sodium 146 mEq/L (136-145) H 10/19/18 04:39 Carbon Dioxide 33 mEq/L (23-29) H 10/19/18 04:39 BUN 37 mg/dL (8-23) H 10/19/18 04:39 BUN/Creatinine Ratio 47 (6-26) H 10/19/18 04:39 Glucose 136 mg/dL (70-105) H 10/19/18 04:39 POC Glucose 129 mg/dL (70-99) H 10/18/18 23:44 Calculated Osmolality 313 (280-300) H 10/19/18 04:39 Venous Ioniz Calcium 1.09 mmol/L (1.15-1.35) L 10/18/18 04:17 B-Natriuretic Peptide 181 pg/mL (Less than 100) H 10/15/18 17:33 TSH 18.059 mcIU/mL (0.340-5.600) H 10/15/18 17:36 Urine Protein 100 mg/dL (Neg-Trace) H 10/12/18 21:10 Urine Ketones Trace mg/dL (Negative) H 10/12/18 21:10 Urine Blood Trace (Negative) H 10/12/18 21:10 Urine Microscopic RBC 3-5 per hpf (0-3) H 10/12/18 21:10 Ur Squamous Epith Cells Many per lpf (None-Few) H 10/12/18 21:10 Fluid Appearance Hazy (Clear) A 10/13/18 10:10 - Microbiology Findings Microbiology Findings: Microbiology, Last 48 Hours 10/12/18 19:25 Blood Culture - Final Peripheral Venipuncture No growth. Final report. 10/12/18 19:25 Blood Culture - Final Peripheral Venipuncture No growth. Final report. - Clinical Findings Intake & Output: Intake & Output 10/18/18 10/19/18 10/19/18 23:59 07:59 15:59 Intake Total 220 / 220 100 / 100 100 / 100 Output Total 925 / 925 275 / 275 1025 / 1025 Balance -705 / -705 -175 / -175 -925 / -925 - Attending Attestation - Attending Attestation I saw and evaluated this patient and my medical decision-making was reviewed with the Resident Physician. I agree with the documented findings, disposition and treatment plan as described except to the extent set forth below. We independently had [id number] contact with the patient Patient seen and examined at bedside Labs, radiology, chart personally reviewed. Management was reviewed during multidisciplinary critical care rounds. PLANT SUPERINTENDENT: Patient is slightly lethargic toxic/metabolic encephalopathy secondary to hypoxia she is following commands responding to meaningful conversation. Pulm: Patient has acceptable oxygenation and ventilation I repeated the blood gas the current hypoxic respiratory failure is secondary to pulmonary edema and did ultrasound lung patient has minimal bilateral pleural effusion not enough to do thoracentesis patient has extensive B lines consistent with pulmonary edema to continue diuresis 10/19 patient has acceptable oxygenation and ventilation responding well to diuresis transitioned to high flow nasal cannula. Cards: Patient blood pressure is controlled with beta blockers and hydralazine FEN-GI: We will advance diet as tolerated if she tolerates high flow nasal cannula. Renal: Labs and output were reviewed to continue diuresis as tolerated ID: No evidence of pneumonia is more of pulmonary edema Heme/Onc: Labs reviewed Endo: Glucose Monitored Integ/MSK: Skin Care per routine ICU Nursing Protocol to prevent ulcers. Lines: All lines examined without evidence of infection : Dispo: Critically ill CODE: Full Code
[2018-10-19] MEDS: Doxycycline 100 MG in 0.9 % Sodium Chloride Mini Bag 100 ML IVPB SCH ×2 (11:13→21:11)
[2018-10-19] MEDS: cefTRIAXone 2,000 MG in Water for inj. (sterile) 20 ML 20 ML IVP SCH (21:11)
[2018-10-19] MEDS: *HR* HYDROcodone/Acet 5/325 mg TABLET PO PRN (21:46)
[2018-10-20] MEDS: Ipratropium/Albuterol Neb 3 ML IH SCH ×6 (00:08→20:05)
[2018-10-20] MEDS: Insulin LISPRO 300 UNITS/3 ML VIAL SQ SCH ×6 (00:27→20:56)
[2018-10-20] MEDS: *HR* Metoprolol 5 MG/5 ML VIAL IVP SCH ×2 (04:03→07:33)
[2018-10-20 04:47] LABS: Basophils % 0.2 %; Eosinophils # 0.1 K/mcL (0.0-0.6); Hematocrit 35.9 % (35.3-44.9); Hemoglobin 11.4 g/dL (11.5-15.4); Lymphocytes # 1.2 K/mcL (0.6-4.6); Lymphocytes % 10.5 %; Mean Corpuscular HGB Conc 31.8 g/dL (31.6-35.5); Mean Corpuscular Hemoglobin 29.9 pg (28.0-33.3); Mean Corpuscular Volume 94.2 fL (83.0-100.0); Mean Platelet Volume 10.1 fL (9.4-12.4); Monocytes % 9.1 %; Platelet Count 232 K/mcL (140-400); Red Blood Count 3.81 M/mcL (3.82-4.97); Red Cell Distribution Width 14.3 % (11.5-14.5); Segmented Neutrophils % 78.2 %
[2018-10-20 04:57] LABS: BUN/Creatinine Ratio 42 (6-26); Blood Urea Nitrogen 37 mg/dL (8-23); Calcium 9.2 mg/dL (8.6-10.3); Carbon Dioxide 39 mEq/L (23-29); Chloride 100 mEq/L (98-107); Glucose 136 mg/dL (70-105); Osmolality,Calculated 317 (280-300); Potassium 2.9 mEq/L (3.5-5.1); Sodium 148 mEq/L (136-145); eGFR For Non-African Americans > 60 (> 60)
[2018-10-20] MEDS: *HR* Heparin 5,000 UNIT/ML VIAL SQ SCH ×2 (05:10→16:28)
[2018-10-20] MEDS: Furosemide 40 MG/4 ML VIAL IVP SCH (07:32)
[2018-10-20] MEDS: Nicotine 21 MG PATCH.TD24 TD SCH (07:33)
[2018-10-20] MEDS: MethylPREDNISolone 40 MG/ML VIAL IVP SCH (07:33)
[2018-10-20] MEDS: Levothyroxine Sodium 100 MCG VIAL IVP SCH (07:33)
[2018-10-20] MEDS: Budesonide/Formoterol 160/4.5 1 PUFF INH IH SCH ×2 (07:33→20:05)
[2018-10-20] MEDS: Pantoprazole 40 MG VIAL IVP SCH (07:33)
[2018-10-20] MEDS: amLODIPine 5 MG TABLET PO SCH (07:33)
[2018-10-20] MEDS: *HR* HYDROcodone/Acet 5/325 mg TABLET PO PRN (07:35)
--- NOTE | 2018-10-20 11:05 | Pulmonology Progress Note ---
Addendum entered and electronically signed by Abhishek Simpson 10/20/18 16:08: Spoke with Hospitalist Dr. Miller who agreed to accept patient. Original Note: <TatianaAbhishek - Last Filed: 10/20/18 13:07> Date of Encounter: 10/20/18 Time of Encounter: 11:05 Assessment and Plan (1) Acute on chronic respiratory failure with hypoxia and hypercapnia Current Visit: No Status: Acute This is a 73-year-old female with past medical history significant for COPD, CHF, depression, hypothyroidism, type 2 diabetes mellitus, tobacco use who initially presented to the ED in acute respiratory distress. Patient was intubated and transferred to ICU. - This patient has advanced emphysema complicated by respiratory failure and found to have acute on chronic hypoxic hypercapnic respiratory failure likely secondary to COPD exacerbation from pneumonia. - Patient currently tolerating HFNC without difficulty - O2 sats appropriate on 40% O2; Otherwise hemodynamically stable CXR (10/18/18): - Interval removal of endotrachela and enteric tubes - Small bilateral pleural effusions with adjacent atelectasis, left greater than right PLAN: Patient respiratory status improving. However complicated by likely pulmonary edema. Switched from BIPAP to HFNC. - Cont positive pressure ventilation throughout the day; monitor O2 sat; titrate to keep O2 > 88% - Cont bronchodilators, cont symbicort - Continue Lasix 40 mg twice a day for diuresis - Cont solumedrol QD; Transition to PO steroids when tolerating PO - Completed course of antibiotics - Pending transfer to stepdown (2) Acute exacerbation of chronic obstructive airways disease Current Visit: No Status: Acute - Cont scheduled bronchodilators - Cont symbicort - Cont solumedrol QD (3) Pulmonary edema Current Visit: No Status: Resolved CXR (10/18/18): - Interval removal of endotrachela and enteric tubes - Small bilateral pleural effusions with adjacent atelectasis, left greater than right PLAN: - Cont PPV throughout the day - Cont Lasix BID Qualifiers: Chronicity: acute Qualified Code(s): J81.0 - Acute pulmonary edema (4) Hypertension Current Visit: No Status: Chronic PLAN: - Switch IV BP meds to PO; Cont home BP medications - Cont to monitor - Cont Lasix BID Qualifiers: Hypertension type: essential hypertension Qualified Code(s): I10 - Essential (primary) hypertension (5) Hypothyroidism Current Visit: No Status: Chronic PLAN: - Cont Synthroid Qualifiers: Hypothyroidism type: unspecified Qualified Code(s): E03.9 - Hypothyroidism, unspecified (6) Nicotine dependence Current Visit: No Status: Chronic PLAN: - Nicotine Patch PRN Qualifiers: Nicotine product type: cigarettes Substance use status: unspecified nicotine-induced disorder Qualified Code(s): F17.219 - Nicotine dependence, cigarettes, with unspecified nicotine-induced disorders Subjective Principal diagnosis: Acute respiratory distress secondary to COPD exacerbation possible pneumo Interval history: Pt seen and examined this morning comfortably sitting in chair at bedside this morning. Reports no acute distress. Currently eating breakfast, tolerating soft diet. No acute events overnight. Remains hemodynamically stable. Has completed full course of antibiotics doxycycline and rocephin. Remains on Lasix BID for management of pulmonary edema. Tolerating HFNC without difficulty. Objective PUL Vital signs: Last Vital Signs Temp 98.5 F 10/20/18 08:02 Pulse 102 10/20/18 10:00 Resp 24 10/20/18 10:00 BP 152/114 10/20/18 10:00 Pulse Ox 93 10/20/18 10:00 General appearance: no acute distress, alert Eyes: nonicteric ENT: oropharynx moist Neck: supple Effort: normal Auscultation: bilateral: clear (Diminished breath sounds b/l; otherwise no wheezes, rales, crackles, rhonchi) Cardiovascular: regular rate and rhythm Gastrointestinal: normoactive bowel sounds, soft, non-tender, non-distended Extremities: no cyanosis, no edema normal mental status, non-focal exam, pupils equal and round, CN II-XII normal mood appropriate, affect normal Results - Laboratory Findings CBC and BMP: 10/20/18 04:13 10/20/18 04:13 ABG ABG pH 7.46 pH Units (7.32-7.45) H 10/18/18 15:21 ABG pCO2 49 mmHg (35-45) H 10/18/18 15:21 ABG pO2 70 mmHg (85-104) L 10/18/18 15:21 ABG O2 Saturation 94 % (95-98) L 10/18/18 15:21 PT/INR, D-dimer PT 11.6 Seconds (9.4-12.1) 10/12/18 19:25 Abnormal lab findings: Abnormal lab results WBC 11.5 K/mcL (4.3-11.1) H 10/20/18 04:13 RBC 3.81 M/mcL (3.82-4.97) L 10/20/18 04:13 Hgb 11.4 g/dL (11.5-15.4) L 10/20/18 04:13 Neutrophils # 9.0 K/mcL (1.6-8.9) H 10/20/18 04:13 ABG pH 7.46 pH Units (7.32-7.45) H 10/18/18 15:21 ABG pCO2 49 mmHg (35-45) H 10/18/18 15:21 ABG pO2 70 mmHg (85-104) L 10/18/18 15:21 ABG HCO3 35 mEq/L (21-27) H 10/18/18 15:21 ABG Total CO2 36 mEq/L (20-26) H 10/18/18 15:21 ABG O2 Saturation 94 % (95-98) L 10/18/18 15:21 ABG Base Excess 9 mEq/L (-2 to 3) H 10/18/18 15:21 Sodium 148 mEq/L (136-145) H 10/20/18 04:13 Potassium 2.9 mEq/L (3.5-5.1) L 10/20/18 04:13 Carbon Dioxide 39 mEq/L (23-29) H 10/20/18 04:13 BUN 37 mg/dL (8-23) H 10/20/18 04:13 BUN/Creatinine Ratio 42 (6-26) H 10/20/18 04:13 Glucose 136 mg/dL (70-105) H 10/20/18 04:13 POC Glucose 178 mg/dL (70-99) H 10/20/18 00:04 Calculated Osmolality 317 (280-300) H 10/20/18 04:13 Venous Ioniz Calcium 1.09 mmol/L (1.15-1.35) L 10/18/18 04:17 B-Natriuretic Peptide 181 pg/mL (Less than 100) H 10/15/18 17:33 TSH 18.059 mcIU/mL (0.340-5.600) H 10/15/18 17:36 Urine Protein 100 mg/dL (Neg-Trace) H 10/12/18 21:10 Urine Ketones Trace mg/dL (Negative) H 10/12/18 21:10 Urine Blood Trace (Negative) H 10/12/18 21:10 Urine Microscopic RBC 3-5 per hpf (0-3) H 10/12/18 21:10 Ur Squamous Epith Cells Many per lpf (None-Few) H 10/12/18 21:10 Fluid Appearance Hazy (Clear) A 10/13/18 10:10 - Clinical Findings Intake & Output: Intake & Output 10/19/18 10/20/18 10/20/18 23:59 07:59 15:59 Intake Total 230 / 230 120 / 120 Output Total 400 / 400 300 / 300 500 / 500 Balance -170 / -170 -300 / -300 -380 / -380 Consult Discharge Plan - Plan Referrals: NONE,PCP [Primary Care Provider] - <Dave Villegas S - Last Filed: 10/20/18 13:36> Date of Encounter: 10/20/18 Objective PUL Vital signs: Last Vital Signs Temp 98.4 F 10/20/18 11:57 Pulse 93 10/20/18 12:00 Resp 22 10/20/18 12:00 BP 149/92 10/20/18 12:00 Pulse Ox 93 10/20/18 12:00 Results - Laboratory Findings CBC and BMP: 10/20/18 04:13 10/20/18 04:13 ABG ABG pH 7.46 pH Units (7.32-7.45) H 10/18/18 15:21 ABG pCO2 49 mmHg (35-45) H 10/18/18 15:21 ABG pO2 70 mmHg (85-104) L 10/18/18 15:21 ABG O2 Saturation 94 % (95-98) L 10/18/18 15:21 PT/INR, D-dimer PT 11.6 Seconds (9.4-12.1) 10/12/18 19:25 Abnormal lab findings: Abnormal lab results WBC 11.5 K/mcL (4.3-11.1) H 10/20/18 04:13 RBC 3.81 M/mcL (3.82-4.97) L 10/20/18 04:13 Hgb 11.4 g/dL (11.5-15.4) L 10/20/18 04:13 Neutrophils # 9.0 K/mcL (1.6-8.9) H 10/20/18 04:13 ABG pH 7.46 pH Units (7.32-7.45) H 10/18/18 15:21 ABG pCO2 49 mmHg (35-45) H 10/18/18 15:21 ABG pO2 70 mmHg (85-104) L 10/18/18 15:21 ABG HCO3 35 mEq/L (21-27) H 10/18/18 15:21 ABG Total CO2 36 mEq/L (20-26) H 10/18/18 15:21 ABG O2 Saturation 94 % (95-98) L 10/18/18 15:21 ABG Base Excess 9 mEq/L (-2 to 3) H 10/18/18 15:21 Sodium 148 mEq/L (136-145) H 10/20/18 04:13 Potassium 2.9 mEq/L (3.5-5.1) L 10/20/18 04:13 Carbon Dioxide 39 mEq/L (23-29) H 10/20/18 04:13 BUN 37 mg/dL (8-23) H 10/20/18 04:13 BUN/Creatinine Ratio 42 (6-26) H 10/20/18 04:13 Glucose 136 mg/dL (70-105) H 10/20/18 04:13 POC Glucose 178 mg/dL (70-99) H 10/20/18 00:04 Calculated Osmolality 317 (280-300) H 10/20/18 04:13 Venous Ioniz Calcium 1.09 mmol/L (1.15-1.35) L 10/18/18 04:17 B-Natriuretic Peptide 181 pg/mL (Less than 100) H 10/15/18 17:33 TSH 18.059 mcIU/mL (0.340-5.600) H 10/15/18 17:36 Urine Protein 100 mg/dL (Neg-Trace) H 10/12/18 21:10 Urine Ketones Trace mg/dL (Negative) H 10/12/18 21:10 Urine Blood Trace (Negative) H 10/12/18 21:10 Urine Microscopic RBC 3-5 per hpf (0-3) H 10/12/18 21:10 Ur Squamous Epith Cells Many per lpf (None-Few) H 10/12/18 21:10 Fluid Appearance Hazy (Clear) A 10/13/18 10:10 - Clinical Findings Intake & Output: Intake & Output 10/19/18 10/20/18 10/20/18 23:59 07:59 15:59 Intake Total 230 / 230 120 / 120 Output Total 400 / 400 300 / 300 500 / 500 Balance -170 / -170 -300 / -300 -380 / -380 - Attending Attestation - Attending Attestation I saw and evaluated this patient and my medical decision-making was reviewed with the Resident Physician. I agree with the documented findings, disposition and treatment plan as described except to the extent set forth below. We independently had [id number] contact with the patient Patient seen and examined at bedside Labs, radiology, chart personally reviewed. Management was reviewed during multidisciplinary critical care rounds. CORPORATE ASSOCIATE: Patient is sitting up and eating today having meaningful conversation Pulm: Patient has acceptable oxygenation and ventilation I repeated the blood gas the current hypoxic respiratory failure is secondary to pulmonary edema and did ultrasound lung patient has minimal bilateral pleural effusion not enough to do thoracentesis patient has extensive B lines consistent with pulmonary edema to continue diuresis 10/19 patient has acceptable oxygenation and ventilation responding well to diuresis transitioned to high flow nasal cannula. 10/20 patient has excellent proximal and ventilation ventilation responding well to diuresis to continue high flow nasal cannula and BiPAP at night. Cards: Patient blood pressure is controlled with beta blockers and hydralazine to change to by mouth medications. FEN-GI: Advance diet as tolerated. To follow speech recommendations. Renal: Labs and output were reviewed to continue diuresis as tolerated ID: No evidence of pneumonia is more of pulmonary edema Heme/Onc: Labs reviewed Endo: Glucose Monitored Integ/MSK: Skin Care per routine ICU Nursing Protocol to prevent ulcers. Lines: All lines examined without evidence of infection : Dispo: Can be transferred to any telemetry. CODE: Full Code
[2018-10-20] MEDS: Miconazole 2% ointment 114 GM TUBE TP SCH ×2 (11:26→20:52)
[2018-10-20] MEDS ORDERED: *HR* LORazepam 0.5 MG TABLET PO PRN (12:06)
[2018-10-20] MEDS ORDERED: *HR* Dextrose 50 % in Water (Syg) 50 ML SYRINGE IVP PRN (12:10)
[2018-10-20] MEDS ORDERED: Dextrose 4 GM Chewable Tablets PO PRN ×2 (12:10)
[2018-10-20] MEDS ORDERED: Naloxone 0.4 MG/ML INJ IVP PRN (12:10)
[2018-10-20] MEDS ORDERED: Dextrose Gel 15 GM/37.5 ML TUBE PO PRN ×2 (12:10)
[2018-10-20] MEDS ORDERED: D5% in Water 1,000 ML IVC PRN (12:10)
[2018-10-20] MEDS ORDERED: Insulin LISPRO 300 UNITS/3 ML VIAL SQ SCH ×3 (12:15→21:00)
[2018-10-20] MEDS ORDERED: Gabapentin 300 MG CAPSULE PO SCH (12:15)
[2018-10-20] MEDS: *HR* LORazepam 0.5 MG TABLET PO PRN (13:57)
[2018-10-20] MEDS: Gabapentin 300 MG CAPSULE PO SCH ×2 (13:57→20:51)
[2018-10-20] MEDS ORDERED: Furosemide 40 MG/4 ML VIAL IVP SCH (17:00)
[2018-10-21] MEDS: Ipratropium/Albuterol Neb 3 ML IH SCH ×7 (00:08→23:36)
[2018-10-21] MEDS: *HR* LORazepam 0.5 MG TABLET PO PRN ×2 (05:21→22:06)
[2018-10-21] MEDS: *HR* Heparin 5,000 UNIT/ML VIAL SQ SCH (05:21)
[2018-10-21] MEDS: Budesonide/Formoterol 160/4.5 1 PUFF INH IH SCH ×2 (08:00→20:01)
[2018-10-21] MEDS: amLODIPine 5 MG TABLET PO SCH (08:20)
[2018-10-21] MEDS: Gabapentin 300 MG CAPSULE PO SCH ×2 (08:20→20:16)
[2018-10-21] MEDS: Miconazole 2% ointment 114 GM TUBE TP SCH ×2 (08:21→20:21)
[2018-10-21] MEDS: Insulin LISPRO 300 UNITS/3 ML VIAL SQ SCH ×4 (08:21→20:15)
[2018-10-21] MEDS: Nicotine 21 MG PATCH.TD24 TD SCH (08:21)
[2018-10-21] MEDS ORDERED: MethylPREDNISolone 40 MG/ML VIAL IVP SCH (09:00)
--- NOTE | 2018-10-21 10:44 | Internal Med Progress Note ---
Hospitalist Progress Note - Encounter Date of Encounter: 10/21/18 Time of Encounter: 09:15 - Subjective Interval History: Patient is lying down in bed. Currently on high flow nasal cannula. Saturating at 99 -100%. Patient reports increased pain in her left shoulder joint. She does have rheumatoid arthritis and has been having occasional pain in the left shoulder joint for several months. She also reports increased swelling in her right upper extremity compared to the left. - Exam Vitals: Temp Pulse Resp BP Pulse Ox 98.4 F 85 18 130/80 89 10/21/18 06:53 10/21/18 06:53 10/21/18 08:02 10/21/18 06:53 10/21/18 08:02 Exam: General: Patient is alert, no acute distress, oriented x 3 Respiratory: Mild end expiratory wheezing Cardiovascular: Regular rate and rhythm. s1 and s2 normal No clicks, rubs, gallops, or murmurs. No pedal edema Abdomen: Abdomen is soft, nontender. Bowel sounds are present Musculoskeletal: Spontaneously moving all extremities , left shoulder joint tenderness. Ecchymosis and swelling involving the right upper extremity around the right elbow joint. Around the site of right powerglide Skin: warm, dry, intact. Neuro: Alert oriented x 3 normal cranial nerves, no focal deficits - Assessment and Plan (1) Acute and chronic respiratory failure ([id number]) Current Visit: Yes Status: Acute Assessment and Plan: Continue O2 supplementation and wean FiO2 as tolerated. Keep sats greater than 88%. Use BiPAP as needed. Continue to treat underlying COPD. (2) Deep venous thrombosis of right upper extremity Current Visit: Yes Status: Acute Assessment and Plan: Patient with acute DVT and SVT involving the right upper extremity at site of powerglide. Probably due to powerglide placement. We will remove powerglide catheter. Start patient on anticoagulation with Lovenox. Patient will most likely need to be on anticoagulation for one to 3 months. (3) Acute exacerbation of chronic obstructive airways disease Current Visit: Yes Status: Acute Assessment and Plan: Improving. We will transition to oral steroids. Recommend a tapering course of steroids. Continue bronchodilators and O2 supplementation. Patient has already completed antibiotic therapy. (4) Diabetes mellitus Current Visit: Yes Status: Chronic Assessment and Plan: Blood sugars are well controlled. Will continue current insulin regimen (5) Hypertension Current Visit: Yes Status: Chronic Assessment and Plan: Blood pressure is better controlled today. Will continue current medication regimen with losartan, atenolol. (6) Hypothyroidism Current Visit: Yes Status: Chronic Assessment and Plan: Continue levothyroxin (7) Nicotine dependence Current Visit: No Status: Chronic Assessment and Plan: On nicotine patch (8) Pulmonary edema Current Visit: Yes Status: Acute Assessment and Plan: With underlying acute on chronic diastolic congestive heart failure. Treated w ith IV Lasix. Patient has also had a good response to it. Will transition to oral Lasix. Check basic panel. Follow renal function closely. (9) Rheumatoid arthritis Current Visit: Yes Status: Chronic Assessment and Plan: Continue symptomatic treatment. Pain control with Tylenol. Patient also is on [place] as needed for severe pain. DVT Prophylaxis: Patient has been on heparin for DVT prophylaxis. However she did develop right upper extremity DVT related to powerglide. We will remove powerglide. Patient will now be on subcutaneous Lovenox. - Time Spent with Patient Total time spent is greater than 50% in coordination of care (as documented) at patient's floor/unit and/or counseling patient: Internal Medicine: Result - Labs CBC & Chem 7: 10/20/18 04:13 10/20/18 04:13 - ABG Interpretation ABG results: ABG ABG pH 7.46 pH Units (7.32-7.45) H 10/18/18 15:21 ABG pCO2 49 mmHg (35-45) H 10/18/18 15:21 ABG pO2 70 mmHg (85-104) L 10/18/18 15:21 ABG O2 Saturation 94 % (95-98) L 10/18/18 15:21 PT/INR, D-dimer PT 11.6 Seconds (9.4-12.1) 10/12/18 19:25 Consult Discharge Plan - Plan Referrals: NONE,PCP [Primary Care Provider] - (1) Acute and chronic respiratory failure ([id number]) Qualifiers: Respiratory failure complication: hypoxia and hypercapnia Qualified Code(s): J96.21 - Acute and chronic respiratory failure with hypoxia; J96.22 - Acute and chronic respiratory failure with hypercapnia (2) Deep venous thrombosis of right upper extremity Qualifiers: Affected thrombotic vein of extremity: brachial Chronicity: acute Qualified Code(s): I82.621 - Acute embolism and thrombosis of deep veins of right upper extremity (4) Diabetes mellitus Qualifiers: Diabetes mellitus type: type 2 Diabetes mellitus intermediate insulin use: without coal screener use Diabetes mellitus complication status: with hyperglycemia Qualified Code(s): E11.65 - Type 2 diabetes mellitus with hyperglycemia (5) Hypertension Qualifiers: Hypertension type: essential hypertension Qualified Code(s): I10 - Essential (primary) hypertension (6) Hypothyroidism Qualifiers: Hypothyroidism type: unspecified Qualified Code(s): E03.9 - Hypothyroidism, unspecified (7) Nicotine dependence Qualifiers: Nicotine product type: cigarettes Substance use status: unspecified nicotine- induced disorder Qualified Code(s): F17.219 - Nicotine dependence, cigarettes, with unspecified nicotine-induced disorders (8) Pulmonary edema Qualifiers: Chronicity: acute Qualified Code(s): J81.0 - Acute pulmonary edema (9) Rheumatoid arthritis Qualifiers: Rheumatoid arthritis location: wrist Rheumatoid factor presence: with rheumatoid factor Laterality: bilateral Qualified Code(s): M05.731 - Rheumatoid arthritis with rheumatoid factor of right wrist without organ or systems involvement; M05.732 - Rheumatoid arthritis with rheumatoid factor of left wrist without organ or systems involvement
[2018-10-21 11:32] LABS: Basophils % 0.2 %; Eosinophils # 0.1 K/mcL (0.0-0.6); Eosinophils % 1.1 %; Hemoglobin 12.2 g/dL (11.5-15.4); Immature Granulocytes % 0.9 % (0-4); Lymphocytes # 0.5 K/mcL (0.6-4.6); Lymphocytes % 3.9 %; Mean Corpuscular HGB Conc 31.3 g/dL (31.6-35.5); Mean Corpuscular Volume 96.1 fL (83.0-100.0); Monocytes # 0.3 K/mcL (0.0-1.3); Monocytes % 2.9 %; Neutrophils # 10.4 K/mcL (1.6-8.9); Platelet Count 182 K/mcL (140-400); Red Blood Count 4.06 M/mcL (3.82-4.97); Red Cell Distribution Width 14.5 % (11.5-14.5)
[2018-10-21 11:48] LABS: BUN/Creatinine Ratio 45 (6-26); Blood Urea Nitrogen 37 mg/dL (8-23); Calcium 8.9 mg/dL (8.6-10.3); Carbon Dioxide 34 mEq/L (23-29); Chloride 102 mEq/L (98-107); Glucose 227 mg/dL (70-105); Osmolality,Calculated 320 (280-300); Potassium 3.6 mEq/L (3.5-5.1); Sodium 147 mEq/L (136-145); eGFR For Non-African Americans > 60 (> 60)
[2018-10-21] MEDS: *HR* Enoxaparin 80 MG/0.8 ML SYRINGE SQ SCH ×2 (11:50→15:42)
[2018-10-21] MEDS: *HR* HYDROcodone/Acet 5/325 mg TABLET PO PRN ×2 (12:28→19:38)
--- NOTE | 2018-10-21 18:26 | Electrocardiograph Report ---
[address] [place] [address] Test Date: 2018-10-15 Pat Name: Lilly Jhaveri Department: 109 Room: 2NE24 Gender: F Print Production Associate: : [id number] Requested By: Abhishek Simpson Order Number: [id number] Reading MD: Adrián Post Measurements Intervals [place] Rate: 69 P: 70 IN: 177 QRS: 37 QRSD: 104 T: 68 QT: 393 QTc: 411 Interpretive Statements SINUS RHYTHM WITH OCCASIONAL SUPRAVENTRICULAR PREMATURE COMPLEXES POSSIBLE ANTERIOR MYOCARDIAL INFARCTION, OF INDETERMINATE AGE Electronically Signed On 10-21-2018 18:24:29 EST by Adrián Post
[2018-10-22] MEDS: Ipratropium/Albuterol Neb 3 ML IH SCH ×5 (03:56→19:51)
[2018-10-22 05:05] LABS: Basophils % 0.3 %; Eosinophils # 0.2 K/mcL (0.0-0.6); Eosinophils % 1.7 %; Hematocrit 37.8 % (35.3-44.9); Hemoglobin 11.6 g/dL (11.5-15.4); Immature Granulocytes % 1.3 % (0-4); Lymphocytes # 1.6 K/mcL (0.6-4.6); Mean Corpuscular HGB Conc 30.7 g/dL (31.6-35.5); Mean Corpuscular Hemoglobin 30.1 pg (28.0-33.3); Mean Corpuscular Volume 98.2 fL (83.0-100.0); Mean Platelet Volume 10.5 fL (9.4-12.4); Monocytes # 0.8 K/mcL (0.0-1.3); Monocytes % 7.6 %; Neutrophils # 7.7 K/mcL (1.6-8.9); Platelet Count 164 K/mcL (140-400); Red Blood Count 3.85 M/mcL (3.82-4.97); Red Cell Distribution Width 14.5 % (11.5-14.5); Segmented Neutrophils % 74.1 %
[2018-10-22 05:23] LABS: BUN/Creatinine Ratio 44 (6-26); Blood Urea Nitrogen 35 mg/dL (8-23); Calcium 9.1 mg/dL (8.6-10.3); Carbon Dioxide 36 mEq/L (23-29); Chloride 104 mEq/L (98-107); Glucose 109 mg/dL (70-105); Osmolality,Calculated 311 (280-300); Sodium 146 mEq/L (136-145); eGFR For Non-African Americans > 60 (> 60)
[2018-10-22] MEDS: *HR* Enoxaparin 80 MG/0.8 ML SYRINGE SQ SCH ×2 (06:08→17:15)
[2018-10-22] MEDS: Budesonide/Formoterol 160/4.5 1 PUFF INH IH SCH ×2 (07:15→19:53)
[2018-10-22] MEDS: Gabapentin 300 MG CAPSULE PO SCH ×3 (08:18→22:53)
[2018-10-22] MEDS: Aspirin Enteric Coated 325 MG Tablet PO SCH (08:18)
[2018-10-22] MEDS: predniSONE 20 MG TABLET PO SCH (08:18)
[2018-10-22] MEDS: Folic Acid 1 MG TABLET PO SCH (08:18)
[2018-10-22] MEDS: amLODIPine 5 MG TABLET PO SCH (08:18)
[2018-10-22] MEDS: Miconazole 2% ointment 114 GM TUBE TP SCH ×2 (08:18→19:41)
[2018-10-22] MEDS: Nicotine 21 MG PATCH.TD24 TD SCH (08:20)
[2018-10-22] MEDS: Insulin LISPRO 300 UNITS/3 ML VIAL SQ SCH ×4 (08:22→22:32)
--- NOTE | 2018-10-22 11:13 | Internal Med Progress Note ---
Hospitalist Progress Note - Encounter Date of Encounter: 10/22/18 Time of Encounter: 10:25 - Subjective Interval History: Patient is awake and alert. Sitting up in bed. Remains on high flow nasal cannula at 30 L/m. She reports feeling much better overall. Denies any fevers or chills. No nausea or vomiting. Continues to have good urine output. - Exam Vitals: Temp Pulse Resp BP Pulse Ox 97.7 F 66 16 172/79 92 10/22/18 10:33 10/22/18 10:33 10/22/18 11:03 10/22/18 10:33 10/22/18 11:03 Exam: General: Patient is alert, moderate respiratory distress, oriented x 3 ENT: Mucous membranes moist, high flow nasal cannula (Campos) in place Respiratory: Improved air entry bilaterally. Decreased breath sounds at both bases.. Cardiovascular: Regular rate and rhythm. s1 and s2 normal No clicks, rubs, gallops, or murmurs. No pedal edema Abdomen: Abdomen is soft, nontender. Bowel sounds are present Musculoskeletal: Spontaneously moving all extremities Skin: warm, dry, intact. Neuro: Alert oriented x 3 normal cranial nerves, no focal deficits - Assessment and Plan (1) Acute and chronic respiratory failure ([id number]) Current Visit: Yes Status: Acute Assessment and Plan: Continue to wean FiO2 as tolerated. Keep sats greater than 88%. Continue to treat underlying medical conditions. Moderate risk for complications. (2) Deep venous thrombosis of right upper extremity Current Visit: Yes Status: Acute Assessment and Plan: Continue Lovenox. We will run the logan check on direct oral anticoagulants tomorrow to decide on best option for long-term anticoagulation. Since this is a provoked DVT due to presence of powerglide, patient will need to be on anticoagulation for 1-3 months. (3) Pulmonary edema Current Visit: Yes Status: Acute Assessment and Plan: Improved. Transition patient to oral Lasix. (4) Acute exacerbation of chronic obstructive airways disease Current Visit: Yes Status: Acute Assessment and Plan: Continue bronchodilators. Wean FiO2 as tolerated. Continue to taper steroids. (5) Diabetes mellitus Current Visit: Yes Status: Chronic Assessment and Plan: Improved control. Continue current insulin regimen. (6) Hypertension Current Visit: Yes Status: Chronic Assessment and Plan: Blood pressure remains elevated. We will change atenolol to carvedilol. Continue losartan and amlodipine.. (7) Hypothyroidism Current Visit: Yes Status: Chronic Assessment and Plan: Continue levothyroxin (8) Nicotine dependence Current Visit: No Status: Chronic Assessment and Plan: Continue NicoDerm (9) Rheumatoid arthritis Current Visit: Yes Status: Chronic Assessment and Plan: Continue supportive care. Patient on Tylenol for pain patient does not taking disease modifying agents at home. She will need follow-up outpatient with rheumatology. - Time Spent with Patient Total time spent is greater than 50% in coordination of care (as documented) at patient's floor/unit and/or counseling patient: Internal Medicine: Result - Labs CBC & Chem 7: 10/22/18 04:34 10/22/18 04:34 Labs: Short CBC 10/21/18 10/22/18 Range/Units 11:19 04:34 WBC 11.4 H 10.4 (4.3-11.1) K/mcL Hgb 12.2 11.6 (11.5-15.4) g/dL Hct 39.0 37.8 (35.3-44.9) % Plt Count 182 164 (140-400) K/mcL Neutrophils # 10.4 H 7.7 (1.6-8.9) K/mcL BMP 10/21/18 10/22/18 11:19 04:34 Sodium 147 H 146 H Potassium 3.6 4.0 Chloride 102 104 Carbon Dioxide 34 H 36 H BUN 37 H 35 H Creatinine 0.83 0.79 Glucose 227 H 109 H Calcium 8.9 9.1 - ABG Interpretation ABG results: ABG ABG pH 7.46 pH Units (7.32-7.45) H 10/18/18 15:21 ABG pCO2 49 mmHg (35-45) H 10/18/18 15:21 ABG pO2 70 mmHg (85-104) L 10/18/18 15:21 ABG O2 Saturation 94 % (95-98) L 10/18/18 15:21 PT/INR, D-dimer PT 11.6 Seconds (9.4-12.1) 10/12/18 19:25 Consult Discharge Plan - Plan Referrals: NONE,PCP [Primary Care Provider] - (1) Acute and chronic respiratory failure ([id number]) Qualifiers: Respiratory failure complication: hypoxia and hypercapnia Qualified Code(s): J96.21 - Acute and chronic respiratory failure with hypoxia; J96.22 - Acute and chronic respiratory failure with hypercapnia (2) Deep venous thrombosis of right upper extremity Qualifiers: Affected thrombotic vein of extremity: brachial Chronicity: acute Qualified Code(s): I82.621 - Acute embolism and thrombosis of deep veins of right upper extremity (3) Pulmonary edema Qualifiers: Chronicity: acute Qualified Code(s): J81.0 - Acute pulmonary edema (5) Diabetes mellitus Qualifiers: Diabetes mellitus type: type 2 Diabetes mellitus half-way insulin use: without terminal worker use Diabetes mellitus complication status: with hyperglycemia Qualified Code(s): E11.65 - Type 2 diabetes mellitus with hyperglycemia (6) Hypertension Qualifiers: Hypertension type: essential hypertension Qualified Code(s): I10 - Essential (primary) hypertension (7) Hypothyroidism Qualifiers: Hypothyroidism type: unspecified Qualified Code(s): E03.9 - Hypothyroidism, unspecified (8) Nicotine dependence Qualifiers: Nicotine product type: cigarettes Substance use status: unspecified nicotine- induced disorder Qualified Code(s): F17.219 - Nicotine dependence, cigarettes, with unspecified nicotine-induced disorders (9) Rheumatoid arthritis Qualifiers: Rheumatoid arthritis location: wrist Rheumatoid factor presence: with rheumatoid factor Laterality: bilateral Qualified Code(s): M05.731 - Rheumatoid arthritis with rheumatoid factor of right wrist without organ or systems involvement; M05.732 - Rheumatoid arthritis with rheumatoid factor of left wrist without organ or systems involvement
[2018-10-22] MEDS: Furosemide 40 MG TABLET PO SCH ×2 (12:27→17:16)
[2018-10-22 17:19] LABS: ABG Base Excess 10 mEq/L (-2 to 3); ABG HCO3 36 mEq/L (21-27); ABG Oxygen Saturation 94 % (95-98); ABG PCO2 54 mmHg (35-45); ABG PH 7.43 pH Units (7.32-7.45); ABG PO2 69 mmHg (85-104); ABG TCO2 38 mEq/L (20-26)
[2018-10-22] MEDS: *HR* LORazepam 0.5 MG TABLET PO PRN (19:40)
[2018-10-22] MEDS: *HR* HYDROcodone/Acet 5/325 mg TABLET PO PRN (22:23)
[2018-10-22 22:36] LABS: Bilirubin,Urine Negative (Negative); Blood,Urine Negative (Negative); Clarity,Urine Clear (Clear); Color,Urine Yellow (Yellow); Glucose,Urine (UA) Normal (Normal); Ketones,Urine Negative (Negative); Leukocyte Esterase,Urine Negative (Negative); Nitrite,Urine Negative (Negative); Protein,Urine Negative (Neg-Trace); Specific Gravity,Urine 1.008 (1.010-1.025); Urobilinogen,Urine Normal (Normal)
[2018-10-23] MEDS: Ipratropium/Albuterol Neb 3 ML IH SCH ×6 (00:35→19:38)
[2018-10-23] MEDS: *HR* LORazepam 0.5 MG TABLET PO PRN (02:54)
[2018-10-23 06:08] LABS: BUN/Creatinine Ratio 39 (6-26); Blood Urea Nitrogen 27 mg/dL (8-23); Calcium 9.3 mg/dL (8.6-10.3); Carbon Dioxide 35 mEq/L (23-29); Chloride 105 mEq/L (98-107); Glucose 136 mg/dL (70-105); Osmolality,Calculated 309 (280-300); Potassium 4.5 mEq/L (3.5-5.1); Sodium 146 mEq/L (136-145); eGFR For Non-African Americans > 60 (> 60)
[2018-10-23] MEDS: *HR* Enoxaparin 80 MG/0.8 ML SYRINGE SQ SCH ×2 (06:19→18:06)
[2018-10-23] MEDS: *HR* HYDROcodone/Acet 5/325 mg TABLET PO PRN ×2 (06:25→18:51)
[2018-10-23 07:14] LABS: Basophils % 0.3 %; Eosinophils # 0.2 K/mcL (0.0-0.6); Eosinophils % 1.8 %; Hematocrit 36.3 % (35.3-44.9); Hemoglobin 11.3 g/dL (11.5-15.4); Lymphocytes # 1.9 K/mcL (0.6-4.6); Lymphocytes % 16.5 %; Mean Corpuscular HGB Conc 31.1 g/dL (31.6-35.5); Mean Corpuscular Hemoglobin 29.7 pg (28.0-33.3); Mean Corpuscular Volume 95.3 fL (83.0-100.0); Mean Platelet Volume 10.9 fL (9.4-12.4); Monocytes # 0.7 K/mcL (0.0-1.3); Monocytes % 6.4 %; Neutrophils # 8.5 K/mcL (1.6-8.9); Platelet Count 173 K/mcL (140-400); Red Blood Count 3.81 M/mcL (3.82-4.97); Red Cell Distribution Width 14.3 % (11.5-14.5)
[2018-10-23] MEDS: Budesonide/Formoterol 160/4.5 1 PUFF INH IH SCH ×2 (07:22→19:39)
[2018-10-23] MEDS: Insulin LISPRO 300 UNITS/3 ML VIAL SQ SCH ×4 (08:26→21:05)
[2018-10-23] MEDS: Gabapentin 300 MG CAPSULE PO SCH ×2 (08:37→20:30)
[2018-10-23] MEDS: predniSONE 20 MG TABLET PO SCH (08:37)
[2018-10-23] MEDS: Aspirin Enteric Coated 325 MG Tablet PO SCH (08:38)
[2018-10-23] MEDS: Folic Acid 1 MG TABLET PO SCH (08:38)
[2018-10-23] MEDS: amLODIPine 5 MG TABLET PO SCH (08:38)
[2018-10-23] MEDS: Furosemide 40 MG TABLET PO SCH ×2 (08:38→16:37)
[2018-10-23] MEDS: Nicotine 21 MG PATCH.TD24 TD SCH (08:53)
[2018-10-23] MEDS: Miconazole 2% ointment 114 GM TUBE TP SCH ×2 (08:54→21:07)
--- NOTE | 2018-10-23 10:38 | Pulmonology Progress Note ---
<Genie Sanders - Last Filed: 10/23/18 15:07> Date of Encounter: 10/23/18 Time of Encounter: 09:15 Assessment and Plan (1) Acute exacerbation of chronic obstructive airways disease Current Visit: Yes Status: Acute History of COPD, appeared to be in exacerbation at presentation and required intubation but was successfully extubated -Currently on high flow oxygen, titrate as tolerated -Continue oral prednisone -Continue Bronchodilators -CTA chest pending to rule out PE due to her increased oxygen demand (2) Acute respiratory failure with hypoxia and hypercapnia Current Visit: No Status: Acute Presented with shortness of breath has history of advanced emphysema as surveyed from ammonia. Continues to have small bilateral pleural effusion with left-sided atelectasis. -Chest x-ray pending -Currently requiring high flow oxygen -Echo pending -Has been transitioned to oral prednisone completed IV Solu-Medrol for 9 days -Completed antibiotics for pneumonia -Continue IV Lasix (3) Pulmonary edema Current Visit: Yes Status: Acute . To have bilateral pleural effusions left greater than right last chest x-ray was on 10/18/18. -Repeat chest x-ray pending -Currently continue IV Lasix Qualifiers: Chronicity: acute Qualified Code(s): J81.0 - Acute pulmonary edema Subjective Principal diagnosis: Acute respiratory distress secondary to COPD exacerbation possible pneumo Interval history: Mr. Jhaveri was seen at bedside this morning. She was resting comfortably and had just completed breakfast. She continues to complain of shortness of breath Currently on 20 L of high flow oxygen. She denies fever, chills, cough and chest pain. Objective PUL Vital signs: Last Vital Signs Temp 96.5 F L 10/23/18 07:00 Pulse 64 10/23/18 07:00 Resp 30 10/23/18 07:22 BP 154/82 10/23/18 07:22 Pulse Ox 100 10/23/18 07:22 General appearance: no acute distress, alert Eyes: nonicteric ENT: oropharynx moist Neck: supple Auscultation: bilateral: diminished breath sounds Cardiovascular: regular rate and rhythm Gastrointestinal: normoactive bowel sounds, soft, non-tender, non-distended Integumentary: normal Extremities: no cyanosis, no edema Musculoskeletal: no deformities normal mental status, pupils equal and round mood appropriate, affect normal Results - Laboratory Findings CBC and BMP: 10/23/18 06:55 10/23/18 05:09 ABG ABG pH 7.43 pH Units (7.32-7.45) 10/22/18 17:11 ABG pCO2 54 mmHg (35-45) H 10/22/18 17:11 ABG pO2 69 mmHg (85-104) L 10/22/18 17:11 ABG O2 Saturation 94 % (95-98) L 10/22/18 17:11 PT/INR, D-dimer PT 11.6 Seconds (9.4-12.1) 10/12/18 19:25 Abnormal lab findings: Abnormal lab results WBC 11.4 K/mcL (4.3-11.1) H 10/23/18 06:55 RBC 3.81 M/mcL (3.82-4.97) L 10/23/18 06:55 Hgb 11.3 g/dL (11.5-15.4) L 10/23/18 06:55 MCHC 31.1 g/dL (31.6-35.5) L 10/23/18 06:55 ABG pCO2 54 mmHg (35-45) H 10/22/18 17:11 ABG pO2 69 mmHg (85-104) L 10/22/18 17:11 ABG HCO3 36 mEq/L (21-27) H 10/22/18 17:11 ABG Total CO2 38 mEq/L (20-26) H 10/22/18 17:11 ABG O2 Saturation 94 % (95-98) L 10/22/18 17:11 ABG Base Excess 10 mEq/L (-2 to 3) H 10/22/18 17:11 Sodium 146 mEq/L (136-145) H 10/23/18 05:09 Carbon Dioxide 35 mEq/L (23-29) H 10/23/18 05:09 BUN 27 mg/dL (8-23) H 10/23/18 05:09 BUN/Creatinine Ratio 39 (6-26) H 10/23/18 05:09 Glucose 136 mg/dL (70-105) H 10/23/18 05:09 POC Glucose 128 mg/dL (70-99) H 10/23/18 08:00 Calculated Osmolality 309 (280-300) H 10/23/18 05:09 Venous Ioniz Calcium 1.09 mmol/L (1.15-1.35) L 10/18/18 04:17 B-Natriuretic Peptide 181 pg/mL (Less than 100) H 10/15/18 17:33 TSH 18.059 mcIU/mL (0.340-5.600) H 10/15/18 17:36 Ur Specific [place] 1.008 (1.010-1.025) L 10/22/18 22:17 Urine Microscopic RBC 3-5 per hpf (0-3) H 10/12/18 21:10 Ur Squamous Epith Cells Many per lpf (None-Few) H 10/12/18 21:10 Fluid Appearance Hazy (Clear) A 10/13/18 10:10 - Clinical Findings Intake & Output: Intake & Output 10/22/18 10/23/18 10/23/18 23:59 07:59 15:59 Intake Total 0 / 0 0 / 0 240 / 240 Output Total 0 / 0 650 / 650 Balance 0 / 0 -650 / -650 240 / 240 Weight 73.5 kg Consult Discharge Plan - Plan Referrals: NONE,PCP [Primary Care Provider] - Prescriptions: Apixaban [Eliquis] 5 mg PO AD #1 tab.ds.pk <Felipe Putnam M - Last Filed: 10/24/18 12:23> Date of Encounter: 10/24/18 Objective PUL Vital signs: Last Vital Signs Temp 96.5 F L 10/23/18 07:00 Pulse 64 10/23/18 07:00 Resp 16 10/23/18 11:09 BP 154/82 10/23/18 07:22 Pulse Ox 96 10/23/18 11:09 Results - Laboratory Findings CBC and BMP: 10/23/18 06:55 10/23/18 05:09 ABG ABG pH 7.43 pH Units (7.32-7.45) 10/22/18 17:11 ABG pCO2 54 mmHg (35-45) H 10/22/18 17:11 ABG pO2 69 mmHg (85-104) L 10/22/18 17:11 ABG O2 Saturation 94 % (95-98) L 10/22/18 17:11 PT/INR, D-dimer PT 11.6 Seconds (9.4-12.1) 10/12/18 19:25 Abnormal lab findings: Abnormal lab results WBC 11.4 K/mcL (4.3-11.1) H 10/23/18 06:55 RBC 3.81 M/mcL (3.82-4.97) L 10/23/18 06:55 Hgb 11.3 g/dL (11.5-15.4) L 10/23/18 06:55 MCHC 31.1 g/dL (31.6-35.5) L 10/23/18 06:55 ABG pCO2 54 mmHg (35-45) H 10/22/18 17:11 ABG pO2 69 mmHg (85-104) L 10/22/18 17:11 ABG HCO3 36 mEq/L (21-27) H 10/22/18 17:11 ABG Total CO2 38 mEq/L (20-26) H 10/22/18 17:11 ABG O2 Saturation 94 % (95-98) L 10/22/18 17:11 ABG Base Excess 10 mEq/L (-2 to 3) H 10/22/18 17:11 Sodium 146 mEq/L (136-145) H 10/23/18 05:09 Carbon Dioxide 35 mEq/L (23-29) H 10/23/18 05:09 BUN 27 mg/dL (8-23) H 10/23/18 05:09 BUN/Creatinine Ratio 39 (6-26) H 10/23/18 05:09 Glucose 136 mg/dL (70-105) H 10/23/18 05:09 POC Glucose 128 mg/dL (70-99) H 10/23/18 08:00 Calculated Osmolality 309 (280-300) H 10/23/18 05:09 Venous Ioniz Calcium 1.09 mmol/L (1.15-1.35) L 10/18/18 04:17 B-Natriuretic Peptide 181 pg/mL (Less than 100) H 10/15/18 17:33 TSH 18.059 mcIU/mL (0.340-5.600) H 10/15/18 17:36 Ur Specific [place] 1.008 (1.010-1.025) L 10/22/18 22:17 Urine Microscopic RBC 3-5 per hpf (0-3) H 10/12/18 21:10 Ur Squamous Epith Cells Many per lpf (None-Few) H 10/12/18 21:10 Fluid Appearance Hazy (Clear) A 10/13/18 10:10 - Clinical Findings Intake & Output: Intake & Output 10/22/18 10/23/18 10/23/18 23:59 07:59 15:59 Intake Total 0 / 0 0 / 0 480 / 480 Output Total 0 / 0 650 / 650 1000 / 1000 Balance 0 / 0 -650 / -650 -520 / -520 Weight 73.5 kg - Attending Attestation I examined this patient and my medical decision-making was reviewed with the Resident Physician. I agree with the documented findings, disposition and treatment plan as described except to the extent set forth below. Patient seen and examined. Labs, radiology, chart personally reviewed. Agree with resident's history and physical, assessment, plan with following comments: [employer]: Patient follows commands, Pulmonary: Acceptable oxygenation and ventilation and overall she stated she is feeling better, however more lethargic and sleepy. They have told her physical therapy would be important for her and to use her noninvasive ventilation during daytime as needed and at night when she is asleep which will help her hypercapnia and she understand that. Keep SPO2 around 90% and wean off FiO2. Again physical therapy will be important. Continue bronchodilators. Will need CT angiogram to make sure there is no pulmonary embolism since there is a possibility that she could have it because of the hypoxia. Please call for any questions.
--- NOTE | 2018-10-23 14:21 | Internal Med Progress Note ---
Hospitalist Progress Note - Encounter Date of Encounter: 10/23/18 Time of Encounter: 14:22 - Subjective Interval History: Patient evaluated earlier today. Patient remains on high flow O2 supplementation. Apparently patient was found smoking cigarettes in her room yesterday. she denies any chest pain. No fever or chills reported overnight. Attempts to wean O2 supplementation yesterday but unsuccessful. - Exam Vitals: Temp Pulse Resp BP Pulse Ox 96.5 F L 64 16 154/82 96 10/23/18 07:00 10/23/18 07:00 10/23/18 11:09 10/23/18 07:22 10/23/18 11:09 Exam: General: Patient is alert, mild distress, oriented x 3 Respiratory: Bilateral wheezing: End expiratory. Cardiovascular: Regular rate and rhythm. s1 and s2 normal No clicks, rubs, gallops, or murmurs. Bilateral pedal edema Abdomen: Abdomen is soft, nontender. Bowel sounds are present Musculoskeletal: Spontaneously moving all extremities Skin: warm, dry, intact. Neuro: Alert oriented x 3 normal cranial nerves, no focal deficits - Assessment and Plan (1) Acute and chronic respiratory failure ([id number]) Current Visit: Yes Status: Acute Assessment and Plan: Patient is awake and alert. Continues to require high flow nasal cannula. Consult pulmonology to help with weaning patient down to nasal cannula. Chest x-ray done today shows bilateral pleural effusions along with streaky airspace opacities bilaterally. Will order incentive spirometry. (2) Deep venous thrombosis of right upper extremity Current Visit: Yes Status: Acute Assessment and Plan: We will transition patient to [facility]. Confirmed low co-pay with pharmacy. (3) Pulmonary edema Current Visit: Yes Status: Acute Assessment and Plan: On oral Lasix. 2-D echocardiogram shows normal ejection fraction. Mild left ventricular diastolic dysfunction (4) Acute exacerbation of chronic obstructive airways disease Current Visit: Yes Status: Acute Assessment and Plan: Continue bronchodilators, steroids. Patient is already completed antibiotic course. Continue O2 supplementation. (5) Diabetes mellitus Current Visit: Yes Status: Chronic Assessment and Plan: Blood sugars are elevated later in the day. We will add daily dose of long- acting insulin (6) Hypertension Current Visit: Yes Status: Chronic Assessment and Plan: Continue amlodipine, losartan and carvedilol. (7) Hypothyroidism Current Visit: Yes Status: Chronic Assessment and Plan: Continue levothyroxin (8) Nicotine dependence Current Visit: No Status: Chronic Assessment and Plan: On nicotine patch. Counseled about cessation (9) Rheumatoid arthritis Current Visit: Yes Status: Chronic Assessment and Plan: Symptoms are well controlled at this time continue supportive care and pain meds - Time Spent with Patient Total time spent is greater than 50% in coordination of care (as documented) at patient's floor/unit and/or counseling patient: Internal Medicine: Result - Labs CBC & Chem 7: 10/23/18 06:55 10/23/18 05:09 Labs: Short CBC 10/23/18 Range/Units 06:55 WBC 11.4 H (4.3-11.1) K/mcL Hgb 11.3 L (11.5-15.4) g/dL Hct 36.3 (35.3-44.9) % Plt Count 173 (140-400) K/mcL Neutrophils # 8.5 (1.6-8.9) K/mcL BMP 10/23/18 05:09 Sodium 146 H Potassium 4.5 Chloride 105 Carbon Dioxide 35 H BUN 27 H Creatinine 0.69 Glucose 136 H Calcium 9.3 Urine 10/22/18 Range/Units 22:17 Urine Color Yellow (Yellow) Urine Clarity Clear (Clear) Urine pH 7.0 (5.0-8.0) pH Units Ur Specific [place] 1.008 L (1.010-1.025) Urine Protein Negative (Neg-Trace) mg/dL Urine Glucose (UA) Normal (Normal) mg/dL - ABG Interpretation ABG results: ABG ABG pH 7.43 pH Units (7.32-7.45) 10/22/18 17:11 ABG pCO2 54 mmHg (35-45) H 10/22/18 17:11 ABG pO2 69 mmHg (85-104) L 10/22/18 17:11 ABG O2 Saturation 94 % (95-98) L 10/22/18 17:11 PT/INR, D-dimer PT 11.6 Seconds (9.4-12.1) 10/12/18 19:25 - Impressions Impressions Chest X-Ray 10/23/18 10:40 IMPRESSION: No significant change from 10/18/2018 with small bilateral pleural effusions, left worse than right, along with patchy/streaky airspace opacities to the lower lung zones bilaterally, also left worse than right, which may relate to atelectasis and/or infiltrates. COPD. D/ / 10/23/2018 11:15:37 Karan Chacon MD / lico Interpreting Provider: Karan Chacon MD Echocardiogram 10/23/18 11:20 Impressions: LVEF 60-65%. Normal LV chamber size and function. Mild concentric left ventricular hypertrophy. Mild left ventricular diastolic dysfunction. Normal right ventricular structure and function. No significant valvular dysfunction. No evidence of pulmonary hypertension. Left Ventricular Wall Motion: Rest Echo Findings All wall segments showed normal motion. Findings: Study Quality * Technically sub-optimal due to poor echocardiographic windows. ECG Findings * Normal sinus rhythm. Left Ventricle * LVEF 60-65%. * Normal LV chamber size and function. * Mild concentric left ventricular hypertrophy. * Mild left ventricular diastolic dysfunction. Right Ventricle * Normal right ventricular structure and function. Left Atrium * Mildly dilated left atrium. Right Atrium * Normal right atrial size. Aortic Valve * Mildly calcified aortic valve leaflets. Difficult to determine the number of leaflets. * No aortic regurgitation. * No aortic stenosis. Mitral Valve * Mild mitral annular calcification. * No mitral stenosis. * No mitral regurgitation. Tricuspid Valve * Normal tricuspid valve structure and function. * Trace tricuspid regurgitation. * No evidence of pulmonary hypertension. Pulmonic Valve * Pulmonic valve not well visualized. Aorta * Normally sized aortic root. Pericardium * The pericardium appears normal. IVC * Normal IVC dimensions and inspiratory collapse. Pulmonary Artery * Normal visualized portions of the main pulmonary artery. Consult Discharge Plan - Plan Referrals: NONE,PCP [Primary Care Provider] - Prescriptions: Apixaban [Eliquis] 5 mg PO AD #1 tab.ds.pk (1) Acute and chronic respiratory failure ([id number]) Qualifiers: Respiratory failure complication: hypoxia and hypercapnia Qualified Code(s): J96.21 - Acute and chronic respiratory failure with hypoxia; J96.22 - Acute and chronic respiratory failure with hypercapnia (2) Deep venous thrombosis of right upper extremity Qualifiers: Affected thrombotic vein of extremity: brachial Chronicity: acute Qualified Code(s): I82.621 - Acute embolism and thrombosis of deep veins of right upper extremity (3) Pulmonary edema Qualifiers: Chronicity: acute Qualified Code(s): J81.0 - Acute pulmonary edema (5) Diabetes mellitus Qualifiers: Diabetes mellitus type: type 2 Diabetes mellitus care home insulin use: without care home use Diabetes mellitus complication status: with hyperglycemia Qualified Code(s): E11.65 - Type 2 diabetes mellitus with hyperglycemia (6) Hypertension Qualifiers: Hypertension type: essential hypertension Qualified Code(s): I10 - Essential (primary) hypertension (7) Hypothyroidism Qualifiers: Hypothyroidism type: unspecified Qualified Code(s): E03.9 - Hypothyroidism, unspecified (8) Nicotine dependence Qualifiers: Nicotine product type: cigarettes Substance use status: unspecified nicotine- induced disorder Qualified Code(s): F17.219 - Nicotine dependence, cigarettes, with unspecified nicotine-induced disorders (9) Rheumatoid arthritis Qualifiers: Rheumatoid arthritis location: wrist Rheumatoid factor presence: with rheumatoid factor Laterality: bilateral Qualified Code(s): M05.731 - Rheumatoid arthritis with rheumatoid factor of right wrist without organ or systems involvement; M05.732 - Rheumatoid arthritis with rheumatoid factor of left wrist without organ or systems involvement
[2018-10-23] MEDS ORDERED: Isovue-370 500 ML BOTTLE IVP ONE (15:05)
[2018-10-23] MEDS: Insulin DETEMIR 100 UNIT/ML X5UNITS SQ SCH (15:47)
[2018-10-24] MEDS: Ipratropium/Albuterol Neb 3 ML IH SCH ×6 (00:01→19:42)
[2018-10-24] MEDS: *HR* Enoxaparin 80 MG/0.8 ML SYRINGE SQ SCH (06:31)
[2018-10-24] MEDS: Budesonide/Formoterol 160/4.5 1 PUFF INH IH SCH ×2 (07:27→19:42)
[2018-10-24] MEDS: predniSONE 20 MG TABLET PO SCH (08:52)
[2018-10-24] MEDS: Nicotine 21 MG PATCH.TD24 TD SCH (08:53)
[2018-10-24] MEDS: Aspirin Enteric Coated 325 MG Tablet PO SCH (08:53)
[2018-10-24] MEDS: amLODIPine 5 MG TABLET PO SCH (08:56)
[2018-10-24] MEDS: Folic Acid 1 MG TABLET PO SCH (08:56)
[2018-10-24] MEDS: *HR* HYDROcodone/Acet 5/325 mg TABLET PO PRN ×2 (08:56→17:35)
[2018-10-24] MEDS: Furosemide 40 MG TABLET PO SCH ×2 (08:56→17:27)
[2018-10-24] MEDS: Gabapentin 300 MG CAPSULE PO SCH ×2 (08:56→20:40)
[2018-10-24] MEDS: Insulin DETEMIR 100 UNIT/ML X5UNITS SQ SCH (08:58)
[2018-10-24] MEDS: Miconazole 2% ointment 114 GM TUBE TP SCH ×2 (09:01→20:41)
[2018-10-24] MEDS: Insulin LISPRO 300 UNITS/3 ML VIAL SQ SCH ×4 (09:03→20:41)
[2018-10-24] MEDS: Potassium Chloride Elixir 20 MEQ/15 ML UDC PO SCH ×2 (09:21→20:40)
--- NOTE | 2018-10-24 10:20 | Pulmonology Progress Note ---
<Genie Sanders - Last Filed: 10/24/18 15:36> Date of Encounter: 10/24/18 Time of Encounter: 09:10 Assessment and Plan (1) Acute exacerbation of chronic obstructive airways disease Current Visit: Yes Status: Acute History of COPD, appeared to be in exacerbation at presentation and required intubation but was successfully extubated -Does not appear to be currently in exacerbation -Currently on high flow oxygen, titrate as tolerated -Continue oral prednisone -Continue Bronchodilators -CTA chest shows a pulmonary embolism -Currently on Lovenox, qualifies for eliquis and is very low-cost for her (2) Acute respiratory failure with hypoxia and hypercapnia Current Visit: No Status: Acute Presented with shortness of breath has history of advanced emphysema as surveyed from ammonia. Continues to have small bilateral pleural effusion with left-sided atelectasis. -Chest x-ray pending -Currently requiring high flow oxygen -CTA of the chest shows pulmonary embolism on the right pulmonary vasculature -Currently on Lovenox will be transitioned to eliquis -Her echo yesterday showed EF of 60-65% with mild concentric LVH mild LV diastolic dysfunction no wall motion abnormalities noted -Has been transitioned to oral prednisone completed IV Solu-Medrol for 9 days -Completed antibiotics for pneumonia -Continue IV Lasix (3) Pulmonary edema Current Visit: Yes Status: Acute To have bilateral pleural effusions left greater than right last chest x-ray was on 10/18/18. -Chest xray from yesterday shows small bilateral opacification, right worse than left -Continue IV Lasix Qualifiers: Chronicity: acute Qualified Code(s): J81.0 - Acute pulmonary edema (4) Pulmonary embolism Current Visit: Yes Status: Acute Noted to have a right sided peripheral pulmonary emobolism, likely from her right upper extremity DVT -She is currently requiring 20 liters of oxygen -Continue to titrate oxygen as tolerated -Continue lovenox and can transition to eliquis Qualifiers: Pulmonary embolism type: unspecified Chronicity: acute Acute cor pulmonale presence: without acute cor pulmonale Qualified Code(s): I26.99 - Other pulmonary embolism without acute cor pulmonale Subjective Principal diagnosis: Acute respiratory distress secondary to COPD exacerbation possible pneumo Interval history: Ms. Jhaveri was seen at bedside this morning. She was sitting at bedside and noted that her chest heaviness sensation resolved yesterday afternoon. She is not complaining of shortness of breath but is requiring 20 L of oxygen. She part about going home just because she misses her family and eats to pay her bills reported she would return to the hospital after dressing the social needs. She denies fever, chills, nausea, emesis, chest pain. Objective PUL Vital signs: Last Vital Signs Temp 98.3 F 10/24/18 08:00 Pulse 77 10/24/18 08:00 Resp 16 10/24/18 08:00 BP 158/87 10/24/18 08:00 Pulse Ox 91 10/24/18 08:00 General appearance: no acute distress, alert Eyes: nonicteric ENT: oropharynx moist Neck: supple Auscultation: bilateral: diminished breath sounds Cardiovascular: regular rate and rhythm Gastrointestinal: normoactive bowel sounds, soft, non-distended Integumentary: erythema (bilateral lower legs) Extremities: no edema, pink and warm, other (right upper arm is erythematous and bilateral lower legs have chronic vascular skin changes) Musculoskeletal: no deformities normal mental status, pupils equal and round mood appropriate, affect normal Results - Laboratory Findings CBC and BMP: 10/23/18 06:55 10/23/18 05:09 ABG ABG pH 7.43 pH Units (7.32-7.45) 10/22/18 17:11 ABG pCO2 54 mmHg (35-45) H 10/22/18 17:11 ABG pO2 69 mmHg (85-104) L 10/22/18 17:11 ABG O2 Saturation 94 % (95-98) L 10/22/18 17:11 PT/INR, D-dimer PT 11.6 Seconds (9.4-12.1) 10/12/18 19:25 Abnormal lab findings: Abnormal lab results WBC 11.4 K/mcL (4.3-11.1) H 10/23/18 06:55 RBC 3.81 M/mcL (3.82-4.97) L 10/23/18 06:55 Hgb 11.3 g/dL (11.5-15.4) L 10/23/18 06:55 MCHC 31.1 g/dL (31.6-35.5) L 10/23/18 06:55 ABG pCO2 54 mmHg (35-45) H 10/22/18 17:11 ABG pO2 69 mmHg (85-104) L 10/22/18 17:11 ABG HCO3 36 mEq/L (21-27) H 10/22/18 17:11 ABG Total CO2 38 mEq/L (20-26) H 10/22/18 17:11 ABG O2 Saturation 94 % (95-98) L 10/22/18 17:11 ABG Base Excess 10 mEq/L (-2 to 3) H 10/22/18 17:11 Sodium 146 mEq/L (136-145) H 10/23/18 05:09 Carbon Dioxide 35 mEq/L (23-29) H 10/23/18 05:09 BUN 27 mg/dL (8-23) H 10/23/18 05:09 BUN/Creatinine Ratio 39 (6-26) H 10/23/18 05:09 Glucose 136 mg/dL (70-105) H 10/23/18 05:09 POC Glucose 228 mg/dL (70-99) H 10/23/18 16:19 Calculated Osmolality 309 (280-300) H 10/23/18 05:09 Venous Ioniz Calcium 1.09 mmol/L (1.15-1.35) L 10/18/18 04:17 B-Natriuretic Peptide 181 pg/mL (Less than 100) H 10/15/18 17:33 TSH 18.059 mcIU/mL (0.340-5.600) H 10/15/18 17:36 Ur Specific [place] 1.008 (1.010-1.025) L 10/22/18 22:17 Urine Microscopic RBC 3-5 per hpf (0-3) H 10/12/18 21:10 Ur Squamous Epith Cells Many per lpf (None-Few) H 10/12/18 21:10 Fluid Appearance Hazy (Clear) A 10/13/18 10:10 - Clinical Findings Intake & Output: Intake & Output 10/23/18 10/24/18 10/24/18 23:59 07:59 15:59 Intake Total 800 / 800 400 / 400 480 / 480 Output Total 0 / 0 0 / 0 Balance 800 / 800 400 / 400 480 / 480 Weight 73.9 kg Consult Discharge Plan - Plan Referrals: NONE,PCP [Primary Care Provider] - Prescriptions: Apixaban [Eliquis] 5 mg PO AD #1 tab.ds.pk <Felipe Putnam M - Last Filed: 10/24/18 17:36> Date of Encounter: 10/24/18 Objective PUL Vital signs: Last Vital Signs Temp 98.6 F 10/24/18 16:43 Pulse 84 10/24/18 16:43 Resp 16 10/24/18 16:43 BP 141/63 10/24/18 16:43 Pulse Ox 97 10/24/18 16:43 Results - Laboratory Findings CBC and BMP: 10/23/18 06:55 10/23/18 05:09 ABG ABG pH 7.43 pH Units (7.32-7.45) 10/22/18 17:11 ABG pCO2 54 mmHg (35-45) H 10/22/18 17:11 ABG pO2 69 mmHg (85-104) L 10/22/18 17:11 ABG O2 Saturation 94 % (95-98) L 10/22/18 17:11 PT/INR, D-dimer PT 11.6 Seconds (9.4-12.1) 10/12/18 19:25 Abnormal lab findings: Abnormal lab results WBC 11.4 K/mcL (4.3-11.1) H 10/23/18 06:55 RBC 3.81 M/mcL (3.82-4.97) L 10/23/18 06:55 Hgb 11.3 g/dL (11.5-15.4) L 10/23/18 06:55 MCHC 31.1 g/dL (31.6-35.5) L 10/23/18 06:55 ABG pCO2 54 mmHg (35-45) H 10/22/18 17:11 ABG pO2 69 mmHg (85-104) L 10/22/18 17:11 ABG HCO3 36 mEq/L (21-27) H 10/22/18 17:11 ABG Total CO2 38 mEq/L (20-26) H 10/22/18 17:11 ABG O2 Saturation 94 % (95-98) L 10/22/18 17:11 ABG Base Excess 10 mEq/L (-2 to 3) H 10/22/18 17:11 Sodium 146 mEq/L (136-145) H 10/23/18 05:09 Carbon Dioxide 35 mEq/L (23-29) H 10/23/18 05:09 BUN 27 mg/dL (8-23) H 10/23/18 05:09 BUN/Creatinine Ratio 39 (6-26) H 10/23/18 05:09 Glucose 136 mg/dL (70-105) H 10/23/18 05:09 POC Glucose 228 mg/dL (70-99) H 10/23/18 16:19 Calculated Osmolality 309 (280-300) H 10/23/18 05:09 Venous Ioniz Calcium 1.09 mmol/L (1.15-1.35) L 10/18/18 04:17 B-Natriuretic Peptide 181 pg/mL (Less than 100) H 10/15/18 17:33 TSH 18.059 mcIU/mL (0.340-5.600) H 10/15/18 17:36 Ur Specific [place] 1.008 (1.010-1.025) L 10/22/18 22:17 Urine Microscopic RBC 3-5 per hpf (0-3) H 10/12/18 21:10 Ur Squamous Epith Cells Many per lpf (None-Few) H 10/12/18 21:10 Fluid Appearance Hazy (Clear) A 10/13/18 10:10 - Clinical Findings Intake & Output: Intake & Output 10/24/18 10/24/18 10/24/18 07:59 15:59 23:59 Intake Total 400 / 400 720 / 720 Output Total 0 / 0 800 / 800 Balance 400 / 400 -80 / -80 Weight 73.9 kg - Attending Attestation I examined this patient and my medical decision-making was reviewed with the Resident Physician. I agree with the documented findings, disposition and treatment plan as described except to the extent set forth below. Patient seen and examined. Labs, radiology, chart personally reviewed. Agree with resident's history and physical, assessment, plan with following comments: MANAGER UI: Patient follows commands, Pulmonary: Acceptable oxygenation and ventilation. Discussed with primary team and the patient has pulmonary embolism with her underlying severe COPD that would explain her hypoxia and I have recommended patient can be transferred to [facility] as a transition since she is still requiring high FiO2. Please call for any questions.
--- NOTE | 2018-10-24 14:28 | Internal Med Progress Note ---
Hospitalist Progress Note - Encounter Date of Encounter: 10/24/18 Time of Encounter: 09:10 - Subjective Interval History: Patient is awake and alert. She reports feeling somewhat better compared to yesterday. But remains on 20 L high flow nasal cannula through [place]. Continue denies any chest pain. No palpitations. No nausea or vomiting. - Exam Vitals: Temp Pulse Resp BP Pulse Ox 98.6 F 84 16 167/83 90 10/24/18 11:41 10/24/18 11:41 10/24/18 11:41 10/24/18 11:41 10/24/18 11:41 Exam: General: Patient is alert, mild distress, oriented x 3 ENT: High flow Nasal cannula in place Respiratory: Diminished breath sounds bilaterally. End expiratory wheezing.. Cardiovascular: Regular rate and rhythm. s1 and s2 normal No clicks, rubs, gallops, or murmurs. Bilateral pedal edema Abdomen: Abdomen is soft, nontender. Bowel sounds are present Musculoskeletal: Spontaneously moving all extremities Skin: warm, dry, intact. Neuro: Alert oriented x 3 normal cranial nerves, no focal deficits - Assessment and Plan (1) Acute and chronic respiratory failure ([id number]) Current Visit: Yes Status: Acute Assessment and Plan: Pulmonology following. CT angioggram yesterday showed small right-sided PE. Patient on anticoagulation. Most likely provoked due to presence of right powerglide with thrombosis in right upper extremity. Continue to wean FiO2. (2) Pulmonary embolism Current Visit: Yes Status: Acute Assessment and Plan: Patient with acute subsegmental PE involving the right middle lobe. Continue anticoagulation with Eliquis. (3) Deep venous thrombosis of right upper extremity Current Visit: Yes Status: Acute Assessment and Plan: With right-sided PE. Continue anticoagulation. Will transition to Eliquis. (4) Pulmonary edema Current Visit: Yes Status: Acute Assessment and Plan: Continue Lasix. Echocardiogram done yesterday showed EF of 60-65% with mild left ventricular diastolic dysfunction. (5) Acute exacerbation of chronic obstructive airways disease Current Visit: Yes Status: Acute Assessment and Plan: Continue bronchodilators, continue to taper steroids. (6) Diabetes mellitus Current Visit: Yes Status: Chronic Assessment and Plan: Blood sugars are elevated during the day. We will increase Levemir dosage to 14 units. (7) Hypertension Current Visit: Yes Status: Chronic Assessment and Plan: Blood pressure remains elevated. We will increase carvedilol to 6.25 mg twice a day (8) Hypothyroidism Current Visit: Yes Status: Chronic Assessment and Plan: Continue levothyroxin (9) Nicotine dependence Current Visit: No Status: Chronic Assessment and Plan: Continue nicotine patch (10) Rheumatoid arthritis Current Visit: Yes Status: Chronic Assessment and Plan: Supportive care. Pain control. DVT Prophylaxis: On Eliquis - Time Spent with Patient Total time spent is greater than 50% in coordination of care (as documented) at patient's floor/unit and/or counseling patient: Internal Medicine: Result - Labs CBC & Chem 7: 10/23/18 06:55 10/23/18 05:09 - ABG Interpretation ABG results: ABG ABG pH 7.43 pH Units (7.32-7.45) 10/22/18 17:11 ABG pCO2 54 mmHg (35-45) H 10/22/18 17:11 ABG pO2 69 mmHg (85-104) L 10/22/18 17:11 ABG O2 Saturation 94 % (95-98) L 10/22/18 17:11 PT/INR, D-dimer PT 11.6 Seconds (9.4-12.1) 10/12/18 19:25 - Impressions Impressions Chest CTA 10/23/18 15:05 IMPRESSION: 1. Subsegmental right middle lobe PE. No evidence of right heart strain. No large or central pulmonary embolism. 2. Stable 7 mm left upper lobe nodule, although, this nodule has slowly enlarged since 2016. Given the presence of severe emphysema, this nodule may be a slow growing primary lung neoplasm. Continued CT surveillance is recommended, which can be obtained in 6-12 months. 3. New small left pleural effusion. 4. Stable mass in the spinal canal at the level of T10. This is without significant change from 2016, and is most likely benign. A calcified meningioma is a consideration. Consider further evaluation with MRI. Results of this examination were verbally communicated to the nurse practitioner John Rossi at 7:19 p.m. on 10/23/2018. RECOMMENDATIONS: Fleischner Society guidelines for follow-up and management of incidentally detected pulmonary nodules: Single Solid Nodule: Nodule size equals 6-8 mm In a low-risk patient, CT at 6-12 months, then consider CT at 18-24 months. In a high-risk patient, CT at 6-12 months, then CT at 18-24 months. - Low risk patients include individuals with minimal or absent history of smoking and other known risk factors. - High risk patients include individuals with a history or smoking or known risk factors. Radiology 2017 http://pubs.rsna.org/doi/full/10.1148/radiol.4206879931 D/ / 10/23/2018 19:26:39 Liam Bar MD / lico Interpreting Provider: Liam Bar MD Consult Discharge Plan - Plan Referrals: NONE,PCP [Primary Care Provider] - Prescriptions: Apixaban [Eliquis] 5 mg PO AD #1 tab.ds.pk (1) Acute and chronic respiratory failure ([id number]) Qualifiers: Respiratory failure complication: hypoxia and hypercapnia Qualified Code(s): J96.21 - Acute and chronic respiratory failure with hypoxia; J96.22 - Acute and chronic respiratory failure with hypercapnia (2) Pulmonary embolism Qualifiers: Pulmonary embolism type: unspecified Chronicity: acute Acute cor pulmonale presence: without acute cor pulmonale Qualified Code(s): I26.99 - Other pulmonary embolism without acute cor pulmonale (3) Deep venous thrombosis of right upper extremity Qualifiers: Affected thrombotic vein of extremity: brachial Chronicity: acute Qualified Code(s): I82.621 - Acute embolism and thrombosis of deep veins of right upper extremity (4) Pulmonary edema Qualifiers: Chronicity: acute Qualified Code(s): J81.0 - Acute pulmonary edema (6) Diabetes mellitus Qualifiers: Diabetes mellitus type: type 2 Diabetes mellitus terminal operations manager insulin use: without terminal operations manager use Diabetes mellitus complication status: with hyperglycemia Qualified Code(s): E11.65 - Type 2 diabetes mellitus with hyperglycemia (7) Hypertension Qualifiers: Hypertension type: essential hypertension Qualified Code(s): I10 - Essential (primary) hypertension (8) Hypothyroidism Qualifiers: Hypothyroidism type: unspecified Qualified Code(s): E03.9 - Hypothyroidism, unspecified (9) Nicotine dependence Qualifiers: Nicotine product type: cigarettes Substance use status: unspecified nicotine-induced disorder Qualified Code(s): F17.219 - Nicotine dependence, cigarettes, with unspecified nicotine-induced disorders (10) Rheumatoid arthritis Qualifiers: Rheumatoid arthritis location: wrist Rheumatoid factor presence: with rheumatoid factor Laterality: bilateral Qualified Code(s): M05.731 - Rheumatoid arthritis with rheumatoid factor of right wrist without organ or systems involvement; M05.732 - Rheumatoid arthritis with rheumatoid factor of left wrist without organ or systems involvement
[2018-10-24] MEDS: Apixaban 5 MG TABLET PO SCH (17:26)
[2018-10-25] MEDS: Ipratropium/Albuterol Neb 3 ML IH SCH ×6 (00:06→20:05)
[2018-10-25 04:49] LABS: Basophils % 0.2 %; Eosinophils # 0.1 K/mcL (0.0-0.6); Eosinophils % 0.9 %; Hematocrit 34.4 % (35.3-44.9); Hemoglobin 10.7 g/dL (11.5-15.4); Immature Granulocytes % 1.2 % (0-4); Lymphocytes # 1.8 K/mcL (0.6-4.6); Lymphocytes % 17.3 %; Mean Corpuscular HGB Conc 31.1 g/dL (31.6-35.5); Mean Corpuscular Hemoglobin 29.6 pg (28.0-33.3); Mean Corpuscular Volume 95.3 fL (83.0-100.0); Mean Platelet Volume 10.6 fL (9.4-12.4); Monocytes # 0.5 K/mcL (0.0-1.3); Monocytes % 4.7 %; Neutrophils # 7.7 K/mcL (1.6-8.9); Platelet Count 183 K/mcL (140-400); Red Blood Count 3.61 M/mcL (3.82-4.97); Red Cell Distribution Width 13.7 % (11.5-14.5); Segmented Neutrophils % 75.7 %
[2018-10-25 05:07] LABS: BUN/Creatinine Ratio 35 (6-26); Blood Urea Nitrogen 28 mg/dL (8-23); Carbon Dioxide 37 mEq/L (23-29); Chloride 104 mEq/L (98-107); Glucose 111 mg/dL (70-105); Osmolality,Calculated 298 (280-300); Potassium 4.5 mEq/L (3.5-5.1); Sodium 141 mEq/L (136-145); eGFR For Non-African Americans > 60 (> 60)
[2018-10-25] MEDS: Apixaban 5 MG TABLET PO SCH ×2 (05:57→17:27)
[2018-10-25] MEDS: Budesonide/Formoterol 160/4.5 1 PUFF INH IH SCH ×2 (07:24→20:06)
[2018-10-25] MEDS: Insulin LISPRO 300 UNITS/3 ML VIAL SQ SCH ×4 (09:29→21:13)
[2018-10-25] MEDS: Aspirin Enteric Coated 325 MG Tablet PO SCH (09:30)
[2018-10-25] MEDS: Gabapentin 300 MG CAPSULE PO SCH ×2 (09:31→21:13)
[2018-10-25] MEDS: Furosemide 40 MG TABLET PO SCH ×2 (09:31→17:27)
[2018-10-25] MEDS: predniSONE 20 MG TABLET PO SCH (09:31)
[2018-10-25] MEDS: amLODIPine 5 MG TABLET PO SCH (09:32)
[2018-10-25] MEDS: Nicotine 21 MG PATCH.TD24 TD SCH (09:32)
[2018-10-25] MEDS: Potassium Chloride Elixir 20 MEQ/15 ML UDC PO SCH ×2 (09:32→21:13)
[2018-10-25] MEDS: Folic Acid 1 MG TABLET PO SCH (09:32)
[2018-10-25] MEDS: *HR* HYDROcodone/Acet 5/325 mg TABLET PO PRN ×2 (09:46→17:27)
[2018-10-25] MEDS: Insulin DETEMIR 100 UNIT/ML X5UNITS SQ SCH (09:47)
[2018-10-25] MEDS: Miconazole 2% ointment 114 GM TUBE TP SCH ×2 (10:07→21:13)
--- NOTE | 2018-10-25 11:31 | Pulmonology Progress Note ---
<Genie Sanders - Last Filed: 10/25/18 11:24> Date of Encounter: 10/25/18 Time of Encounter: 09:15 Assessment and Plan (1) Acute exacerbation of chronic obstructive airways disease Current Visit: Yes Status: Acute History of COPD, appeared to be in exacerbation at presentation and required intubation but was successfully extubated on 10/19/18 -Does not appear to be currently in exacerbation -Currently on high flow oxygen, titrate as tolerated -Continue oral prednisone -Will require a taper at discharge -Continue Bronchodilators -CTA chest showed a pulmonary embolism two days ago -On eliquis for the PE (2) Acute respiratory failure with hypoxia and hypercapnia Current Visit: No Status: Acute Presented with shortness of breath has history of advanced emphysema as surveyed from ammonia. Continues to have small bilateral pleural effusion with left-sided atelectasis. -Currently requiring high flow oxygen -CTA of the chest showed pulmonary embolism on the right pulmonary vasculature two days ago -Transitioned to eliquis -Her echo yesterday showed EF of 60-65% with mild concentric LVH mild LV diastolic dysfunction no wall motion abnormalities noted -Has been transitioned to oral prednisone completed IV Solu-Medrol for 9 days -Completed antibiotics for pneumonia -Continue IV Lasix, can transition to oral due to improvement in her respiratory status (3) Pulmonary edema Current Visit: Yes Status: Acute To have bilateral pleural effusions left greater than right last chest x-ray was on 10/18/18. -Chest xray from yesterday shows small bilateral opacification, right worse than left -Continue IV Lasix, can transition to oral due to improvement in respiratory status Qualifiers: Chronicity: acute Qualified Code(s): J81.0 - Acute pulmonary edema (4) Pulmonary embolism Current Visit: Yes Status: Acute Noted to have a right sided peripheral pulmonary emobolism, likely from her right upper extremity DVT -She is currently requiring 20 liters of oxygen -Continue to titrate oxygen as tolerated -Continue eliquis Qualifiers: Pulmonary embolism type: unspecified Chronicity: acute Acute cor pulmo nale presence: without acute cor pulmonale Qualified Code(s): I26.99 - Other pulmonary embolism without acute cor pulmonale Subjective Principal diagnosis: Acute respiratory distress secondary to COPD exacerbation possible pneumo Interval history: Ms. Jhaveri was seen at bedside this morning. She was resting comfortably in bed. She was requiring 5 liters of nasal canula. Her shortness of breath has significantly improved and she is requiring 5 liters of nasal canula today. She denies productive cough. She also denies fever, chills, nausea, emesis or chest pain. Objective PUL Vital signs: Last Vital Signs Temp 98.1 F 10/25/18 07:11 Pulse 66 10/25/18 07:11 Resp 16 10/25/18 07:24 BP 144/77 10/25/18 07:11 Pulse Ox 99 10/25/18 07:24 General appearance: no acute distress, alert Eyes: nonicteric ENT: oropharynx moist Neck: supple Auscultation: bilateral: wheezes (lower lung lobes) Cardiovascular: regular rate and rhythm Gastrointestinal: normoactive bowel sounds, soft, non-tender, non-distended Integumentary: normal Extremities: other (bilateral lower extremity vascular changes) Musculoskeletal: no deformities Gait: normal gait normal mental status, pupils equal and round mood appropriate, affect normal Results - Laboratory Findings CBC and BMP: 10/25/18 04:29 10/25/18 04:29 ABG ABG pH 7.43 pH Units (7.32-7.45) 10/22/18 17:11 ABG pCO2 54 mmHg (35-45) H 10/22/18 17:11 ABG pO2 69 mmHg (85-104) L 10/22/18 17:11 ABG O2 Saturation 94 % (95-98) L 10/22/18 17:11 PT/INR, D-dimer PT 11.6 Seconds (9.4-12.1) 10/12/18 19:25 Abnormal lab findings: Abnormal lab results RBC 3.61 M/mcL (3.82-4.97) L 10/25/18 04:29 Hgb 10.7 g/dL (11.5-15.4) L 10/25/18 04:29 Hct 34.4 % (35.3-44.9) L 10/25/18 04:29 MCHC 31.1 g/dL (31.6-35.5) L 10/25/18 04:29 ABG pCO2 54 mmHg (35-45) H 10/22/18 17:11 ABG pO2 69 mmHg (85-104) L 10/22/18 17:11 ABG HCO3 36 mEq/L (21-27) H 10/22/18 17:11 ABG Total CO2 38 mEq/L (20-26) H 10/22/18 17:11 ABG O2 Saturation 94 % (95-98) L 10/22/18 17:11 ABG Base Excess 10 mEq/L (-2 to 3) H 10/22/18 17:11 Carbon Dioxide 37 mEq/L (23-29) H 10/25/18 04:29 BUN 28 mg/dL (8-23) H 10/25/18 04:29 BUN/Creatinine Ratio 35 (6-26) H 10/25/18 04:29 Glucose 111 mg/dL (70-105) H 10/25/18 04:29 POC Glucose 216 mg/dL (70-99) H 10/24/18 16:47 Venous Ioniz Calcium 1.09 mmol/L (1.15-1.35) L 10/18/18 04:17 B-Natriuretic Peptide 181 pg/mL (Less than 100) H 10/15/18 17:33 TSH 18.059 mcIU/mL (0.340-5.600) H 10/15/18 17:36 Ur Specific [place] 1.008 (1.010-1.025) L 10/22/18 22:17 Urine Microscopic RBC 3-5 per hpf (0-3) H 10/12/18 21:10 Ur Squamous Epith Cells Many per lpf (None-Few) H 10/12/18 21:10 Fluid Appearance Hazy (Clear) A 10/13/18 10:10 - Clinical Findings Intake & Output: Intake & Output 10/24/18 10/25/18 10/25/18 23:59 07:59 15:59 Intake Total 0 / 0 360 / 360 Output Total 250 / 250 0 / 0 Balance -250 / -250 0 / 0 360 / 360 Weight 75.4 kg Consult Discharge Plan - Plan Referrals: NONE,PCP [Primary Care Provider] - Prescriptions: Apixaban [Eliquis] 5 mg PO AD #1 tab.ds.pk <Felipe Putnam M - Last Filed: 10/25/18 16:00> Date of Encounter: 10/25/18 Objective PUL Vital signs: Last Vital Signs Temp 98.2 F 10/25/18 15:53 Pulse 79 10/25/18 15:53 Resp 16 10/25/18 15:53 BP 138/74 10/25/18 15:53 Pulse Ox 94 10/25/18 15:53 Results - Laboratory Findings CBC and BMP: 10/25/18 04:29 10/25/18 04:29 ABG ABG pH 7.43 pH Units (7.32-7.45) 10/22/18 17:11 ABG pCO2 54 mmHg (35-45) H 10/22/18 17:11 ABG pO2 69 mmHg (85-104) L 10/22/18 17:11 ABG O2 Saturation 94 % (95-98) L 10/22/18 17:11 PT/INR, D-dimer PT 11.6 Seconds (9.4-12.1) 10/12/18 19:25 Abnormal lab findings: Abnormal lab results RBC 3.61 M/mcL (3.82-4.97) L 10/25/18 04:29 Hgb 10.7 g/dL (11.5-15.4) L 10/25/18 04:29 Hct 34.4 % (35.3-44.9) L 10/25/18 04:29 MCHC 31.1 g/dL (31.6-35.5) L 10/25/18 04:29 ABG pCO2 54 mmHg (35-45) H 10/22/18 17:11 ABG pO2 69 mmHg (85-104) L 10/22/18 17:11 ABG HCO3 36 mEq/L (21-27) H 10/22/18 17:11 ABG Total CO2 38 mEq/L (20-26) H 10/22/18 17:11 ABG O2 Saturation 94 % (95-98) L 10/22/18 17:11 ABG Base Excess 10 mEq/L (-2 to 3) H 10/22/18 17:11 Carbon Dioxide 37 mEq/L (23-29) H 10/25/18 04:29 BUN 28 mg/dL (8-23) H 10/25/18 04:29 BUN/Creatinine Ratio 35 (6-26) H 10/25/18 04:29 Glucose 111 mg/dL (70-105) H 10/25/18 04:29 POC Glucose 257 mg/dL (70-99) H 10/25/18 11:29 Venous Ioniz Calcium 1.09 mmol/L (1.15-1.35) L 10/18/18 04:17 B-Natriuretic Peptide 181 pg/mL (Less than 100) H 10/15/18 17:33 TSH 18.059 mcIU/mL (0.340-5.600) H 10/15/18 17:36 Ur Specific [place] 1.008 (1.010-1.025) L 10/22/18 22:17 Urine Microscopic RBC 3-5 per hpf (0-3) H 10/12/18 21:10 Ur Squamous Epith Cells Many per lpf (None-Few) H 10/12/18 21:10 Fluid Appearance Hazy (Clear) A 10/13/18 10:10 - Clinical Findings Intake & Output: Intake & Output 10/24/18 10/25/18 10/25/18 23:59 07:59 15:59 Intake Total 0 / 0 480 / 480 Output Total 250 / 250 0 / 0 300 / 300 Balance -250 / -250 0 / 0 180 / 180 Weight 75.4 kg - Attending Attestation I examined this patient and my medical decision-making was reviewed with the Resident Physician. I agree with the documented findings, disposition and treatment plan as described except to the extent set forth below. Patient seen and examined. Labs, radiology, chart personally reviewed. 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 Wean off oxygen as tolerated to keep SPO2 around 90%. Patient can follow-up as outpatient in 4-8 weeks. Please call for any questions.
--- NOTE | 2018-10-25 12:59 | Internal Med Progress Note ---
Hospitalist Progress Note - Encounter Date of Encounter: 10/25/18 Time of Encounter: 09:00 - Subjective Interval History: Patient has less shortness of breath and decreased oxygen requirement. Currently on 5 L nasal cannula oxygen. Her baseline is 4 L at home. Mild nonproductive cough. Denies fever. - Exam Vitals: Temp Pulse Resp BP Pulse Ox 98.2 F 72 16 136/66 99 10/25/18 11:32 10/25/18 11:32 10/25/18 11:32 10/25/18 11:32 10/25/18 11:32 Exam: General: Patient is alert, mild distress, oriented x 3 ENT: High flow Nasal cannula in place Respiratory: Diminished breath sounds bilaterally. No wheezes. Cardiovascular: Regular rate and rhythm. s1 and s2 normal No clicks, rubs, gallops, or murmurs. Bilateral pedal edema Abdomen: Abdomen is soft, nontender. Bowel sounds are present Musculoskeletal: Spontaneously moving all extremities Skin: warm, dry, intact. Neuro: Alert oriented x 3 normal cranial nerves, no focal deficits - Assessment and Plan (1) Acute exacerbation of chronic obstructive airways disease Current Visit: Yes Status: Acute Assessment and Plan: Continue bronchodilators, continue to taper steroids. (2) Pulmonary edema Current Visit: Yes Status: Acute Assessment and Plan: Continue Lasix. Echocardiogram done, which showed EF of 60-65% with mild left ventricular diastolic dysfunction. (3) Acute and chronic respiratory failure ([id number]) Current Visit: Yes Status: Acute Assessment and Plan: Pulmonology following. CT angioggram yesterday showed small right-sided PE. Patient on anticoagulation. Most likely provoked due to presence of right powerglide with thrombosis in right upper extremity. Continue to wean FiO2. (4) Diabetes mellitus Current Visit: Yes Status: Chronic Assessment and Plan: Blood sugars are elevated during the day, likely due to steroid use . Increased Levemir dosage, continue sliding scale (5) Nicotine dependence Current Visit: No Status: Chronic Assessment and Plan: Continue nicotine patch (6) Hypothyroidism Current Visit: Yes Status: Chronic Assessment and Plan: Continue levothyroxin (7) Hypertension Current Visit: Yes Status: Chronic Assessment and Plan: Increased carvedilol to 6.25 mg twice a day. Blood pressure is well controlled now. (8) Rheumatoid arthritis Current Visit: Yes Status: Chronic Assessment and Plan: Supportive care. Pain control. (9) Deep venous thrombosis of right upper extremity Current Visit: Yes Status: Acute Assessment and Plan: With right-sided PE. Continue anticoagulation. Will transition to Eliquis. (10) Pulmonary embolism Current Visit: Yes Status: Acute Assessment and Plan: Patient with acute subsegmental PE involving the right middle lobe. Continue anticoagulation with Eliquis. DVT Prophylaxis: On Eliquis - Time Spent with Patient Total time spent is greater than 50% in coordination of care (as documented) at patient's floor/unit and/or counseling patient: 30 min 25 - 35 minutes Plan of Care Discussed with: patient Internal Medicine: Result - Labs CBC & Chem 7: 10/25/18 04:29 10/25/18 04:29 Labs: Short CBC 10/25/18 Range/Units 04:29 WBC 10.2 (4.3-11.1) K/mcL Hgb 10.7 L (11.5-15.4) g/dL Hct 34.4 L (35.3-44.9) % Plt Count 183 (140-400) K/mcL Neutrophils # 7.7 (1.6-8.9) K/mcL BMP 10/25/18 04:29 Sodium 141 Potassium 4.5 Chloride 104 Carbon Dioxide 37 H BUN 28 H Creatinine 0.81 Glucose 111 H Calcium 9.0 - ABG Interpretation ABG results: ABG ABG pH 7.43 pH Units (7.32-7.45) 10/22/18 17:11 ABG pCO2 54 mmHg (35-45) H 10/22/18 17:11 ABG pO2 69 mmHg (85-104) L 10/22/18 17:11 ABG O2 Saturation 94 % (95-98) L 10/22/18 17:11 PT/INR, D-dimer PT 11.6 Seconds (9.4-12.1) 10/12/18 19:25 Consult Discharge Plan - Plan Referrals: NONE,PCP [Primary Care Provider] - Prescriptions: Apixaban [Eliquis] 5 mg PO AD #1 tab.ds.pk (2) Pulmonary edema Qualifiers: Chronicity: acute Qualified Code(s): J81.0 - Acute pulmonary edema (3) Acute and chronic respiratory failure ([id number]) Qualifiers: Respiratory failure complication: hypoxia and hypercapnia Qualified Code(s): J96.21 - Acute and chronic respiratory failure with hypoxia; J96.22 - Acute and chronic respiratory failure with hypercapnia (4) Diabetes mellitus Qualifiers: Diabetes mellitus type: type 2 Diabetes mellitus shelter insulin use: without shelter use Diabetes mellitus complication status: with hyperglycemia Qualified Code(s): E11.65 - Type 2 diabetes mellitus with hyperglycemia (5) Nicotine dependence Qualifiers: Nicotine product type: cigarettes Substance use status: unspecified nicotine- induced disorder Qualified Code(s): F17.219 - Nicotine dependence, cigarettes, with unspecified nicotine-induced disorders (6) Hypothyroidism Qualifiers: Hypothyroidism type: unspecified Qualified Code(s): E03.9 - Hypothyroidism, unspecified (7) Hypertension Qualifiers: Hypertension type: essential hypertension Qualified Code(s): I10 - Essential (primary) hypertension (8) Rheumatoid arthritis Qualifiers: Rheumatoid arthritis location: wrist Rheumatoid factor presence: with rheumatoid factor Laterality: bilateral Qualified Code(s): M05.731 - Rh eumatoid arthritis with rheumatoid factor of right wrist without organ or systems involvement; M05.732 - Rheumatoid arthritis with rheumatoid factor of left wrist without organ or systems involvement (9) Deep venous thrombosis of right upper extremity Qualifiers: Affected thrombotic vein of extremity: brachial Chronicity: acute Qualified Code(s): I82.621 - Acute embolism and thrombosis of deep veins of right upper extremity (10) Pulmonary embolism Qualifiers: Pulmonary embolism type: unspecified Chronicity: acute Acute cor pulmonale presence: without acute cor pulmonale Qualified Code(s): I26.99 - Other pulmonary embolism without acute cor pulmonale
[2018-10-26] MEDS: Ipratropium/Albuterol Neb 3 ML IH SCH ×4 (00:16→11:28)
[2018-10-26 04:53] LABS: Basophils % 0.1 %; Eosinophils % 0.1 %; Hematocrit 33.9 % (35.3-44.9); Hemoglobin 10.6 g/dL (11.5-15.4); Immature Granulocytes % 0.8 % (0-4); Lymphocytes # 1.1 K/mcL (0.6-4.6); Mean Corpuscular HGB Conc 31.3 g/dL (31.6-35.5); Mean Corpuscular Hemoglobin 30.2 pg (28.0-33.3); Mean Corpuscular Volume 96.6 fL (83.0-100.0); Mean Platelet Volume 10.6 fL (9.4-12.4); Monocytes # 0.5 K/mcL (0.0-1.3); Monocytes % 4.3 %; Neutrophils # 10.4 K/mcL (1.6-8.9); Platelet Count 195 K/mcL (140-400); Red Blood Count 3.51 M/mcL (3.82-4.97); Red Cell Distribution Width 13.3 % (11.5-14.5); Segmented Neutrophils % 85.7 %
[2018-10-26 05:09] LABS: BUN/Creatinine Ratio 42 (6-26); Blood Urea Nitrogen 31 mg/dL (8-23); Calcium 9.1 mg/dL (8.6-10.3); Carbon Dioxide 37 mEq/L (23-29); Chloride 98 mEq/L (98-107); Glucose 129 mg/dL (70-105); Osmolality,Calculated 298 (280-300); Potassium 4.8 mEq/L (3.5-5.1); Sodium 140 mEq/L (136-145); eGFR For Non-African Americans > 60 (> 60)
[2018-10-26] MEDS: Apixaban 5 MG TABLET PO SCH (05:25)
[2018-10-26] MEDS: *HR* HYDROcodone/Acet 5/325 mg TABLET PO PRN (05:26)
[2018-10-26 07:07] VITALS: BP 150/87
[2018-10-26] MEDS: Budesonide/Formoterol 160/4.5 1 PUFF INH IH SCH (07:34)
[2018-10-26] MEDS: Insulin LISPRO 300 UNITS/3 ML VIAL SQ SCH ×2 (08:19→11:38)
[2018-10-26] MEDS: Potassium Chloride Elixir 20 MEQ/15 ML UDC PO SCH (08:40)
[2018-10-26] MEDS: Insulin DETEMIR 100 UNIT/ML X5UNITS SQ SCH (08:41)
[2018-10-26] MEDS: Folic Acid 1 MG TABLET PO SCH (08:41)
[2018-10-26] MEDS: predniSONE 20 MG TABLET PO SCH (08:41)
[2018-10-26] MEDS: Furosemide 40 MG TABLET PO SCH (08:41)
[2018-10-26] MEDS: amLODIPine 5 MG TABLET PO SCH (08:41)
[2018-10-26] MEDS: Gabapentin 300 MG CAPSULE PO SCH (08:41)
[2018-10-26] MEDS: Miconazole 2% ointment 114 GM TUBE TP SCH (08:42)
[2018-10-26] MEDS: Nicotine 21 MG PATCH.TD24 TD SCH (08:42)
[2018-10-26] MEDS ORDERED: Aspirin Enteric Coated 81 MG Tablet PO SCH (09:00)
--- NOTE | 2018-10-26 11:06 | Discharge Summary ---
- NOTES TO OUTPATIENT PROVIDER Notes to Outpatient Provider: 1. Pt was found DVT and PE, provoked by central line, on Eliquis, will take 10mg po bid x 7 days then switch to 5mg po bid. Po ASA dose decreased from 325 to 81 mg as patient started Eliquis. Please follow. Orders not resulted at time of discharge: Pending orders 10/13/18 10:10 AFB Culture, Respiratory [TB] Routine AFB Smear [TB] Routine Fungal Culture [MYC] Routine Date of Encounter: 10/26/18 Time of Encounter: 09:00 - Discharge Diagnosis (1) Acute exacerbation of chronic obstructive airways disease Priority: Primary Status: Acute (2) Pulmonary edema Priority: Primary Status: Acute Qualifiers: Chronicity: acute Qualified Code(s): J81.0 - Acute pulmonary edema (3) Acute and chronic respiratory failure ([id number]) Priority: Primary Status: Acute Qualifiers: Respiratory failure complication: hypoxia and hypercapnia Qualified Code(s): J96.21 - Acute and chronic respiratory failure with hypoxia; J96.22 - Acute and chronic respiratory failure with hypercapnia (4) Diabetes mellitus Priority: Secondary Status: Chronic Qualifiers: Diabetes mellitus type: type 2 Diabetes mellitus tank terminal gauger insulin use: without tank terminal gauger use Diabetes mellitus complication status: with hyperglycemia Qualified Code(s): E11.65 - Type 2 diabetes mellitus with hyperglycemia (5) Nicotine dependence Priority: Secondary Status: Chronic Qualifiers: Nicotine product type: cigarettes Substance use status: unspecified nicotine-induced disorder Qualified Code(s): F17.219 - Nicotine dependence, cigarettes, with unspecified nicotine-induced disorders (6) Hypothyroidism Priority: Secondary Status: Chronic Qualifiers: Hypothyroidism type: unspecified Qualified Code(s): E03.9 - Hypothyroidism, unspecified (7) Hypertension Priority: Secondary Status: Chronic Qualifiers: Hypertension type: essential hypertension Qualified Code(s): I10 - Essential (primary) hypertension (8) Rheumatoid arthritis Priority: Secondary Status: Chronic Qualifiers: Rheumatoid arthritis location: wrist Rheumatoid factor presence: with rheumatoid factor Laterality: bilateral Qualified Code(s): M05.731 - Rheumatoid arthritis with rheumatoid factor of right wrist without organ or systems involvement; M05.732 - Rheumatoid arthritis with rheumatoid factor of left wrist without organ or systems involvement (9) Deep venous thrombosis of right upper extremity Priority: Primary Status: Acute Qualifiers: Affected thrombotic vein of extremity: brachial Chronicity: acute Qualified Code(s): I82.621 - Acute embolism and thrombosis of deep veins of rig ht upper extremity (10) Pulmonary embolism Priority: Primary Status: Acute Qualifiers: Pulmonary embolism type: unspecified Chronicity: acute Acute cor pulmonale presence: without acute cor pulmonale Qualified Code(s): I26.99 - Other pulmonary embolism without acute cor pulmonale Hospital course: Ms. Jhaveri is a 73 year old female present to ER for shortness of breath. Patient was admitted as COPD exacerbation and possible pneumonia. Patient was treated with antibiotics, bronchodilator, and steroid. Her condition getting worse during hospitalization and she has to be intubated and transferred to ICU. Patient was extubated later and continue high flow oxygen and BiPAP. Patient was found acute right arm DVT and PE, likely provoked by central line. Patient was started anticoagulation and switched to by mouth Eliquis. Patient has history of COPD need 4 liter oxygen at home and has home BiPAP during night. After treatment, she feels her shortness of breath get back to her baseline. Today, her SPO2 100% on 4 L oxygen, which is her baseline. I have seen and examined the patient today. Patient denies chest pain. Mild shortness of breath at baseline. No nausea or vomiting. Vitals are stable. No overnight fever. Will DC patient home. Continue tapering down by mouth steroid. Continue home oxygen and home BiPAP. Will arrange home health with home nurse and home PT OT. Continue follow-up with PCP as outpatient. Smoking cessation education done at the bedside, nicotine patch prescribed. Patient needs to continue by mouth Eliquis 10mg bid for totally 7 days (last dose 10/31/18, 6am) then switch to 5 mg by mouth twice a day. Discharge discussed with: patient Time spent discussing smoking cessation with patient: 3 to 10 minutes - Time Spent with Patient Total time spent providing and/or coordinating discharge services: 40 minutes Time spent: Greater than 30 minutes, D/C greater than 8 hours after Admission - Discharge Medications Prescriptions: New Apixaban [Eliquis] 5 mg PO AD #1 tab.ds.pk Aspirin Enteric Coated [Aspirin EC] 81 mg PO DAILY 30 Days #30 tablet. Nicotine Patch [Nicoderm] 21 mg TD DAILY 14 Days #14 patch.td24 predniSONE [PredniSONE] See Taper PO DAILY 10 Days #10 tablet Continue amLODIPine [Norvasc] 5 mg PO DAILY Lovastatin [Mevacor] 20 mg PO DAILY Folic Acid 1 mg PO DAILY Atenolol [Tenormin] 25 mg PO DAILY Albuterol Sulfate [Ventolin Hfa] 2 puff IH Q4H PRN PRN Reason: Shortness Of Breath Potassium Chloride [Klor-Con 10] 10 meq PO BID Metformin HCl [Metformin ER Gastric] 1,500 mg PO QPM Ipratropium/Albuterol Neb [Duoneb] 3 ml IH QID PRN PRN Reason: Shortness Of Breath Gabapentin [Neurontin] 300 mg PO BID Alendronate Sodium [Fosamax] 70 mg PO QWEEK Cholecalciferol (Vitamin D3) [Vitamin D3] 50,000 unit PO TU Oxygen 4 l NS AD Escitalopram [Lexapro] 10 mg PO DAILY Furosemide [Lasix] 40 mg PO QAM Levothyroxine Sodium [Levo-T] 200 mcg PO QAM Losartan Potassium [Cozaar] 100 mg PO DAILY Albuterol Neb [Proventil Neb] 2.5 mg IH QID PRN PRN Reason: Shortness Of Breath Furosemide [Lasix] 20 mg PO QPM Linagliptin [Tradjenta] 5 mg PO DAILY Mupirocin [Bactroban Oint] 1 appl TP TID Docusate [Colace] 100 mg PO BID PRN PRN Reason: Constipation Discontinued Aspirin Enteric Coated [Aspirin EC] 325 mg PO DAILY Home Medications: Albuterol Sulfate [Ventolin Hfa] 2 puff IH Q4H PRN 11/16/16 [History] Atenolol [Tenormin] 25 mg PO DAILY 11/16/16 [History] Folic Acid 1 mg PO DAILY 11/16/16 [History] Gabapentin [Neurontin] 300 mg PO BID 11/16/16 [History] Ipratropium/Albuterol Neb [Duoneb] 3 ml IH QID PRN 11/16/16 [History] Lovastatin [Mevacor] 20 mg PO DAILY 11/16/16 [History] Metformin HCl [Metformin ER Gastric] 1,500 mg PO QPM 11/16/16 [History] Potassium Chloride [Klor-Con 10] 10 meq PO BID 11/16/16 [History] amLODIPine [Norvasc] 5 mg PO DAILY 11/16/16 [History] Alendronate Sodium [Fosamax] 70 mg PO QWEEK 12/31/16 [History] Cholecalciferol (Vitamin D3) [Vitamin D3] 50,000 unit PO TU 01/21/17 [History] Oxygen 4 l NS AD 01/21/17 [History] Escitalopram [Lexapro] 10 mg PO DAILY 08/31/17 [History] Furosemide [Lasix] 40 mg PO QAM 01/02/18 [History] Levothyroxine Sodium [Levo-T] 200 mcg PO QAM 01/02/18 [History] Losartan Potassium [Cozaar] 100 mg PO DAILY 01/02/18 [History] Albuterol Neb [Proventil Neb] 2.5 mg IH QID PRN 10/13/18 [History] Docusate [Colace] 100 mg PO BID PRN 10/13/18 [History] Furosemide [Lasix] 20 mg PO QPM 10/13/18 [History] Linagliptin [Tradjenta] 5 mg PO DAILY 10/13/18 [History] Mupirocin [Bactroban Oint] 1 appl TP TID 10/13/18 [History] Apixaban [Eliquis] 5 mg PO AD #1 tab.ds.pk 10/23/18 [Rx] Aspirin Enteric Coated [Aspirin EC] 81 mg PO DAILY 30 Days #30 tablet. [Rx] Nicotine Patch [Nicoderm] 21 mg TD DAILY 14 Days #14 patch.td24 10/26/18 [Rx] predniSONE [PredniSONE] See Taper PO DAILY 10 Days #10 tablet 10/26/18 [Rx] Allergies/Adverse Reactions: Allergy/AdvReac Type Severity Reaction Status Date / Time No Known Allergies Allergy Verified 01/21/17 03:23 Date of admission: 10/12/18 21:18 Primary care physician: PCP NONE Consults: 10/12/18 20:51 Consult to Pulmonology [CONS] Stat Consulting Provider: [facility] [place] Reason for Consult: intubation, ventilation management Call Completed: No 10/12/18 23:51 Consult to Wound Care [CONS] Routine Reason for Consult: lower extremity venous stasis Time Notified: 23:53 Call Completed: No 10/13/18 11:07 Consult to Nutrition [CONS] Routine Comment: Consulting Provider: NUTRITION Reason for Dietary Consult: Tube Feed Start & Manage 10/17/18 09:08 Consult to Nurse Navigator [CONS] Routine Comment: COPD 10/17/18 10:42 Consult to Speech Therapy [CONS] Routine Comment: Evaluate, develop and implement POC Reason for Consult: swallowing evaluation Time Notified: 10:42 Call Completed: No 10/22/18 13:51 Consult to Pulmonology [CONS] Routine Consulting Provider: [facility] [place] Reason for Consult: Hypoxic Respiratory failure Time Notified: 13:51 Call Completed: Yes Discharging clinician: Lexie Piedra Anticipated date of discharge: 10/26/18 - Constitutional Vitals: Temp Pulse Resp BP Pulse Ox 98.0 F 64 18 150/87 100 10/26/18 07:00 10/26/18 07:00 10/26/18 07:36 10/26/18 07:00 10/26/18 07:36 General appearance: Present: A&O X 3, obese. Absent: answers questions appropriately Exam: General: Patient is alert, in no acute distress, oriented x 3 ENT: 4L/min Nasal cannula in place Respiratory: Diminished breath sounds bilaterally. No wheezes. Cardiovascular: Regular rate and rhythm. s1 and s2 normal No clicks, rubs, gallops, or murmurs. Abdomen: Abdomen is soft, nontender. Bowel sounds are present Musculoskeletal: Spontaneously moving all extremities Skin: warm, dry, intact. Neuro: Alert oriented x 3 normal cranial nerves, no focal deficits - Patient Status Disposition: Home Health Service Condition: Good Functional capacity at discharge: uses cane/walker Overall status at discharge: patient is back to baseline - Discharge Instructions Follow Up With: NONE,PCP [Primary Care Provider] - - Diet and Activity Activity: as per physical therapy, increase activity as tolerated Diet: diabetic diet, low fat, low cholesterol, low salt diet
--- NOTE | 2018-10-26 11:33 | Physician Discharge Referral ---
Home Health/Hosp Referral Info Transfer to: Home Health Provider in Charge Post Discharge: PCP - Diagnosis (1) Acute exacerbation of chronic obstructive airways disease Priority: Primary Status: Acute (2) Pulmonary edema Status: Acute (3) Acute and chronic respiratory failure ([id number]) Status: Acute (4) Diabetes mellitus Status: Chronic (5) Nicotine dependence Status: Chronic (6) Hypothyroidism Status: Chronic (7) Hypertension Status: Chronic (8) Rheumatoid arthritis Status: Chronic (9) Deep venous thrombosis of right upper extremity Status: Acute (10) Pulmonary embolism Status: Acute - Respiratory Orders Oxygen / L per min (4), Other (BiPAP during night) Smoking Cessation: Smoking cessation has been advised. For more information, call the [place] Tobacco Quit Line at 5-062-EUET-NOW. - Diet/Nutrition Diet/Nutrition Orders: Cardiac, No Concentrated Sweets - Services Needed Following services are medically necessary services: Nursing, Home Health Aide, Physical Therapy, Occupational Therapy - Transfer Medications Prescriptions: Apixaban [Eliquis] 5 mg PO AD #1 tab.ds.pk Aspirin Enteric Coated [Aspirin EC] 81 mg PO DAILY 30 Days #30 tablet. Nicotine Patch [Nicoderm] 21 mg TD DAILY 14 Days #14 patch.td24 predniSONE [PredniSONE] See Taper PO DAILY 10 Days #10 tablet Home Medications: Albuterol Sulfate [Ventolin Hfa] 2 puff IH Q4H PRN 11/16/16 [History] Atenolol [Tenormin] 25 mg PO DAILY 11/16/16 [History] Folic Acid 1 mg PO DAILY 11/16/16 [History] Gabapentin [Neurontin] 300 mg PO BID 11/16/16 [History] Ipratropium/Albuterol Neb [Duoneb] 3 ml IH QID PRN 11/16/16 [History] Lovastatin [Mevacor] 20 mg PO DAILY 11/16/16 [History] Metformin HCl [Metformin ER Gastric] 1,500 mg PO QPM 11/16/16 [History] Potassium Chloride [Klor-Con 10] 10 meq PO BID 11/16/16 [History] amLODIPine [Norvasc] 5 mg PO DAILY 11/16/16 [History] Alendronate Sodium [Fosamax] 70 mg PO QWEEK 12/31/16 [History] Cholecalciferol (Vitamin D3) [Vitamin D3] 50,000 unit PO TU 01/21/17 [History] Oxygen 4 l NS AD 01/21/17 [History] Escitalopram [Lexapro] 10 mg PO DAILY 08/31/17 [History] Furosemide [Lasix] 40 mg PO QAM 01/02/18 [History] Levothyroxine Sodium [Levo-T] 200 mcg PO QAM 01/02/18 [History] Losartan Potassium [Cozaar] 100 mg PO DAILY 01/02/18 [History] Albuterol Neb [Proventil Neb] 2.5 mg IH QID PRN 10/13/18 [History] Docusate [Colace] 100 mg PO BID PRN 10/13/18 [History] Furosemide [Lasix] 20 mg PO QPM 10/13/18 [History] Linagliptin [Tradjenta] 5 mg PO DAILY 10/13/18 [History] Mupirocin [Bactroban Oint] 1 appl TP TID 10/13/18 [History] Apixaban [Eliquis] 5 mg PO AD #1 tab.ds.pk 10/23/18 [Rx] Aspirin Enteric Coated [Aspirin EC] 81 mg PO DAILY 30 Days #30 tablet. 10/26/18 [Rx] Nicotine Patch [Nicoderm] 21 mg TD DAILY 14 Days #14 patch.td24 10/26/18 [Rx] predniSONE [PredniSONE] See Taper PO DAILY 10 Days #10 tablet 10/26/18 [Rx] Allergies/Adverse Reactions: Allergy/AdvReac Type Severity Reaction Status Date / Time No Known Allergies Allergy Verified 01/21/17 03:23 Certification: Further, I certify that my clinical findings support that this patient is homebound (i.e. absences from home require considerable and taxing effort and are for medical reasons or adventist services or infrequently or short duration when for other reasons) because: Homebound Reason: Patient requires assistance of a person or device to safely leave home Attestation: My signature below is to certify that this patient is under my care and that I, or nurse practitioner, or a physician's assistant surveyor working with me, has a [id number] encounter with this patient.
== END 2018-10-26 15:14 | disposition home health service (06) | DRG 133 ==
LOC: EMEROOARM 18:50 → ICNU 21:18 → SUATTDRO 21:18 → ICNU 23:07 → 2NENU 10-20 17:27
PROVIDERS: ADMIT Internal Medicine; ATTEND Internal Medicine

== ENCOUNTER 2019-02-01 22:33 | Inpatient (IN) ==
--- NOTE | 2019-02-01 23:31 | Emergency Department Note ---
Disposition Clinical Impression: Pneumonia Qualifiers: Pneumonia type: due to unspecified organism Laterality: left Lung location: lower lobe of lung Qualified Code(s): J18.1 - Lobar pneumonia, unspecified organism CHF exacerbation Qualifiers: Heart failure type: systolic Qualified Code(s): I50.23 - Acute on chronic systolic (congestive) heart failure Acute and chronic respiratory failure ([id number]) Qualifiers: Respiratory failure complication: hypoxia and hypercapnia Qualified Code(s): J96.21 - Acute and chronic respiratory failure with hypoxia Disposition: Admitted As Inpatient Condition: Fair Time of Disposition: 03:20 General Adult HPI - General Chief complaint: ED Shortness of Breath/Dyspnea Stated complaint: sob x3 days Time Seen by Provider: 02/01/19 22:46 Source: patient Limitations: no limitations Nursing Notes Reviewed: Yes Vital Signs Reviewed: Yes - History of Present Illness HPI Narrative: 73-year-old female who presents emergency department from nursing facility due to shortness of breath and increased fatigue for the last day. The patient is on chronic oxygen at home for COPD using 3L daily. She has not had to change this recently. She does note a nonproductive cough but denies any fever, chills, vomiting. She has no chest pain. She does complain of increased urinary frequency otherwise denies any significant change in her chronic leg swelling. Pain Scale: 8 - Related Data Home Medications Medication Instructions Recorded Confirmed Albuterol Sulfate [Ventolin Hfa] 2 puff IH Q4H PRN 11/16/16 01/10/19 Atenolol [Tenormin] 25 mg PO DAILY 11/16/16 01/10/19 Folic Acid 1 mg PO DAILY 11/16/16 01/10/19 Ipratropium/Albuterol Neb [Duoneb] 3 ml IH QID PRN 11/16/16 01/10/19 Lovastatin [Mevacor] 20 mg PO DAILY 11/16/16 01/10/19 Potassium Chloride [Klor-Con 10] 10 meq PO BID 11/16/16 01/10/19 amLODIPine [Norvasc] 5 mg PO DAILY 11/16/16 01/10/19 Alendronate Sodium [Fosamax] 70 mg PO 12/31/16 01/10/19 Cholecalciferol (Vitamin D3) 50,000 unit PO 01/21/1719 [Vitamin D3] Oxygen 4 l NS AD 01/21/17 01/10/19 Escitalopram [Lexapro] 10 mg PO DAILY 08/31/17 12/08/18 Furosemide [Lasix] 40 mg PO QAM 01/02/18 01/10/19 Levothyroxine Sodium [Levo-T] 200 mcg PO QAM 01/02/18 01/10/19 Losartan Potassium [Cozaar] 100 mg PO DAILY 01/02/18 01/10/19 Albuterol Neb [Proventil Neb] 2.5 mg IH QID PRN 10/13/18 01/10/19 Docusate [Colace] 100 mg PO BID PRN 10/13/18 01/10/19 Furosemide [Lasix] 20 mg PO QPM 10/13/18 01/10/19 Linagliptin [Tradjenta] 5 mg PO DAILY 10/13/18 01/10/19 Apixaban [Eliquis] 5 mg PO BID 11/19/18 01/10/19 Metformin HCl [Fortamet] 1,500 mg PO QPM 11/19/18 01/10/19 Aspirin [Adult Aspirin] 81 mg PO DAILY 12/08/18 01/10/19 Previous Rx's Medication Instructions Recorded Azithromycin [Zithromax] 500 mg PO DAILY #3 tablet 01/12/19 Gabapentin [Neurontin] 300 mg PO BID #20 capsule 01/12/19 predniSONE [PredniSONE] 30 mg PO DAILY #6 tablet 01/12/19 Allergies Allergy/AdvReac Type Severity Reaction Status Date / Time No Known Allergies Allergy Verified 02/01/19 22:41 Review of Systems: ROS per history of present illness, all other systems reviewed and negative or normal. All systems ED: reviewed and negative except as stated. Review of Systems: As Per HPI Past Medical History - Past Medical History Medical history: Reports: COPD, diabetes, hyperlipidemia, hypertension, pulmonary embolus, thyroid disease, other Surgical history: Reports: cholecystectomy Psychiatric history: Reports: anxiety, depression - Social History Smoking Status: Former smoker Smokeless Tobacco Status: No Alcohol use: Reports: none Drug use: Reports: none Physical Exam General: Conversant. No apparent distress. Follow commands. Appears stated age. Neck: No JVD. Trachea midline. Neck supple. Eyes: PERRL. No scleral icterus. HENT: Normocephalic and atraumatic. Moist mucus membranes. Cardiovascular: Regular rate and rhythm. Normal S1 and S2. No murmurs appreciated. Normal capillary refill. Extremities well perfused with 2+ distal pulses bilaterally. 1+ edema bilaterally which she states is baseline Pulmonary: Wheezing and anterior bases with coarse breath sounds in posterior lung renee, mild crackles at bases posteriorly. Abdomen: Soft, nondistended, and tontender. No bruits or masses. No guarding. Neuro: Alert and oriented x3. No slurred speech. No focal deficits noted. Skin: No rashes noted on visualized skin. Musculoskeletal: No bony abnormalities visualized. Moves all extremities. Psych: Normal mood. Pleasant. Makes appropriate eye contact. - General Limitations: no limitations General appearance: alert Course Vital Signs Temperature 97.7 F 02/01/19 22:34 Pulse Rate 50 02/01/19 22:34 Respiratory Rate 20 02/01/19 22:34 Blood Pressure 121/65 02/01/19 22:34 O2 Sat by Pulse Oximetry 92 02/01/19 22:34 Temperature 97.4 F L 02/02/19 04:23 Pulse Rate 92 02/02/19 04:23 Respiratory Rate 21 02/02/19 04:52 Blood Pressure 132/74 02/02/19 04:23 O2 Sat by Pulse Oximetry 96 02/02/19 04:52 Oxygen Delivery Oxygen Delivery Oximizer Medical Decision Making - [facility] Narrative Medical decision making narrative: 73-year-old female with history of COPD on 3-1/2 L at home who presents the emergency department from a nursing facility following recent hospitalization due to shortness of breath. She has had for the nursing facility today due to decreased activity levels. On arrival the patient has tachypnea with coarse breath sounds and wheezing that clears with deep inhalation. The patient is alert and oriented 3 and able to answer questions appropriately but does appear drowsy. She is on her baseline oxygen with no desaturations. We did obtain CBC, BMP, BNP, EKG, chest x-ray and troponin. The patient does not have significant leukocytosis but does have anemia of 11 which appears occur approximately patient's baseline. The patient has hypernatremia which is also chronic along with hypercapnia with CO2 at 45 which is approximately her baseline. Otherwise the patient does have elevated BNP of 500. TSH significantly elevated. Troponin less than 0.03. Urinalysis negative for urinary tract infection. Chest x-ray shows left-sided days later the bony versus effusion. Given the patient's recent hospitalization, cough and increased work of breathing we will cover for hospital-acquired pneumonia with vancomycin, Zosyn and azithromycin. Patient was also given 40 milligrams IV Lasix for treatment of likely exacerbation of her CHF. The patient did have one episode of hypoxia requiring increase of her baseline oxygen up to 6 L patient does continue to appear drowsy. She states she typically uses BiPAP at night. This order was placed prior to her transitioning to the floor but apparently was not started. Discussed case with on-call hospitalist Dr. Genao who agrees with plan for admission and accepts the patient to the inpatient service. Patient agrees with and understands course of treatment plan including plan for admission. All questions answered. - Medical Records Medical records reviewed: Yes I reviewed the patient's medical records. - Lab Data Lab results reviewed: Yes I reviewed the patient's lab results. Result diagrams: 02/02/19 01:56 02/02/19 00:22 Lab Results 02/01/19 02/01/19 02/01/19 Range/Units 00:22 23:04 23:37 WBC (4.3-11.1) K/mcL RBC (3.82-4.97) M/mcL Hgb (11.5-15.4) g/dL Hct (35.3-44.9) % MCV (83.0-100.0) fL MCH (28.0-33.3) pg MCHC (31.6-35.5) g/dL RDW (11.5-14.5) % Plt Count (140-400) K/mcL MPV (9.4-12.4) fL Immature Gran % (0-4) % Seg Neutrophils % % Lymphocytes % % Monocytes % % Eosinophils % % Basophils % % Neutrophils # (1.6-8.9) K/mcL Lymphocytes # (0.6-4.6) K/mcL Monocytes # (0.0-1.3) K/mcL Eosinophils # (0.0-0.6) K/mcL Basophils # (0.0-0.2) K/mcL Sodium (136-145) mEq/L Potassium (3.5-5.1) mEq/L Chloride (98-107) mEq/L Carbon Dioxide (23-29) mEq/L BUN (8-23) mg/dL Creatinine (0.60-1.20) mg/dL Est GFR ( Amer) (> 60) Est GFR (Non-Af Amer) (> 60) BUN/Creatinine Ratio (6-26) Glucose (70-105) mg/dL POC Glucose 161 H (70-99) mg/dL Calculated Osmolality (280-300) Lactic Acid (0.5-2.2) mmol/L Calcium (8.6-10.3) mg/dL Magnesium (1.6-2.6) mg/dL Troponin I (< 0.04) ng/mL B-Natriuretic Peptide (Less than 100) pg/mL TSH (0.340-5.600) mcIU/mL Urine Color Yellow (Yellow) Urine Clarity Clear (Clear) Urine pH 5.0 (5.0-8.0) pH Units Ur Specific [place] 1.015 (1.010-1.025) Urine Protein Negative (Neg-Trace) mg/dL Urine Glucose (UA) Normal (Normal) mg/dL Urine Ketones Negative (Negative) mg/dL Urine Blood Negative (Negative) Urine Nitrite Negative (Negative) Urine Bilirubin Negative (Negative) Urine Urobilinogen Normal (Normal) mg/dL Ur Leukocyte Esterase Negative (Negative) Ur Culture Indicated? NO (NO) Specimen Rejected MCV Delta 02/02/19 02/02/19 02/02/19 Range/Units 00:22 00:22 00:22 WBC (4.3-11.1) K/mcL RBC (3.82-4.97) M/mcL Hgb (11.5-15.4) g/dL Hct (35.3-44.9) % MCV (83.0-100.0) fL MCH (28.0-33.3) pg MCHC (31.6-35.5) g/dL RDW (11.5-14.5) % Plt Count (140-400) K/mcL MPV (9.4-12.4) fL Immature Gran % (0-4) % Seg Neutrophils % % Lymphocytes % % Monocytes % % Eosinophils % % Basophils % % Neutrophils # (1.6-8.9) K/mcL Lymphocytes # (0.6-4.6) K/mcL Monocytes # (0.0-1.3) K/mcL Eosinophils # (0.0-0.6) K/mcL Basophils # (0.0-0.2) K/mcL Sodium 146 H (136-145) mEq/L Potassium 4.2 (3.5-5.1) mEq/L Chloride 97 L (98-107) mEq/L Carbon Dioxide 45 H* (23-29) mEq/L BUN 19 (8-23) mg/dL Creatinine 0.74 (0.60-1.20) mg/dL Est GFR ( Amer) > 60 (> 60) Est GFR (Non-Af Amer) > 60 (> 60) BUN/Creatinine Ratio 26 (6-26) Glucose 150 H (70-105) mg/dL POC Glucose (70-99) mg/dL Calculated Osmolality 307 H (280-300) Lactic Acid 0.6 (0.5-2.2) mmol/L Calcium 9.1 (8.6-10.3) mg/dL Magnesium 2.0 (1.6-2.6) mg/dL Troponin I < 0.03 (< 0.04) ng/mL B-Natriuretic Peptide (Less than 100) pg/mL TSH 1.082 (0.340-5.600) mcIU/mL Urine Color (Yellow) Urine Clarity (Clear) Urine pH (5.0-8.0) pH Units Ur Specific [place] (1.010-1.025) Urine Protein (Neg-Trace) mg/dL Urine Glucose (UA) (Normal) mg/dL Urine Ketones (Negative) mg/dL Urine Blood (Negative) Urine Nitrite (Negative) Urine Bilirubin (Negative) Urine Urobilinogen (Normal) mg/dL Ur Leukocyte Esterase (Negative) Ur Culture Indicated? (NO) Specimen Rejected 02/02/19 02/02/19 Range/Units 00:22 01:56 WBC 9.3 (4.3-11.1) K/mcL RBC 3.74 L (3.82-4.97) M/mcL Hgb 10.9 L (11.5-15.4) g/dL Hct 37.5 (35.3-44.9) % MCV 100.3 H (83.0-100.0) fL MCH 29.1 (28.0-33.3) pg MCHC 29.1 L (31.6-35.5) g/dL RDW 13.2 (11.5-14.5) % Plt Count 150 (140-400) K/mcL MPV 10.7 (9.4-12.4) fL Immature Gran % 0.3 (0-4) % Seg Neutrophils % 82.8 % Lymphocytes % 10.0 % Monocytes % 5.8 % Eosinophils % 0.9 % Basophils % 0.2 % Neutrophils # 7.7 (1.6-8.9) K/mcL Lymphocytes # 0.9 (0.6-4.6) K/mcL Monocytes # 0.5 (0.0-1.3) K/mcL Eosinophils # 0.1 (0.0-0.6) K/mcL Basophils # 0.0 (0.0-0.2) K/mcL Sodium (136-145) mEq/L Potassium (3.5-5.1) mEq/L Chloride (98-107) mEq/L Carbon Dioxide (23-29) mEq/L BUN (8-23) mg/dL Creatinine (0.60-1.20) mg/dL Est GFR ( Amer) (> 60) Est GFR (Non-Af Amer) (> 60) BUN/Creatinine Ratio (6-26) Glucose (70-105) mg/dL POC Glucose (70-99) mg/dL Calculated Osmolality (280-300) Lactic Acid (0.5-2.2) mmol/L Calcium (8.6-10.3) mg/dL Magnesium (1.6-2.6) mg/dL Troponin I (< 0.04) ng/mL B-Natriuretic Peptide 509 H (Less than 100) pg/mL TSH (0.340-5.600) mcIU/mL Urine Color (Yellow) Urine Clarity (Clear) Urine pH (5.0-8.0) pH Units Ur Specific [place] (1.010-1.025) Urine Protein (Neg-Trace) mg/dL Urine Glucose (UA) (Normal) mg/dL Urine Ketones (Negative) mg/dL Urine Blood (Negative) Urine Nitrite (Negative) Urine Bilirubin (Negative) Urine Urobilinogen (Normal) mg/dL Ur Leukocyte Esterase (Negative) Ur Culture Indicated? (NO) Specimen Rejected - Radiology Data Radiology results reviewed: Yes I reviewed the patient's radiology results. Chest X-Ray 02/01/19 22:58 IMPRESSION: Emphysema with COPD. Suspect mild superimposed pulmonary edema and small left pleural effusion, not substantially changed since 01/29/2019. Left basilar opacities, favored to reflect a combination of atelectasis and effusion although superimposed infection could be present in the appropriate context.. D/ / Johnathon Song / Johnathon Song Interpreting Provider: Johnathon Song - EKG Data EKG #1 EKG attestation: Yes I reviewed and interpreted this EKG. EKG results narrative: Sinus bradycardia rate of 52. Normal axis. Normal intervals. Intermittent PVC. No evidence of acute ischemic changes. When compared with prior from 02/25/19 there are no significant changes with exception to rate
[2019-02-01 23:56] LABS: Bilirubin,Urine Negative (Negative); Blood,Urine Negative (Negative); Clarity,Urine Clear (Clear); Color,Urine Yellow (Yellow); Glucose,Urine (UA) Normal (Normal); Ketones,Urine Negative (Negative); Leukocyte Esterase,Urine Negative (Negative); Nitrite,Urine Negative (Negative); Protein,Urine Negative (Neg-Trace); Specific Gravity,Urine 1.015 (1.010-1.025); Urobilinogen,Urine Normal (Normal)
[2019-02-02 01:05] LABS: BUN/Creatinine Ratio 26 (6-26); Blood Urea Nitrogen 19 mg/dL (8-23); Calcium 9.1 mg/dL (8.6-10.3); Carbon Dioxide 45 mEq/L (23-29); Chloride 97 mEq/L (98-107); Glucose 150 mg/dL (70-105); Osmolality,Calculated 307 (280-300); Potassium 4.2 mEq/L (3.5-5.1); Sodium 146 mEq/L (136-145); eGFR For African Americans > 60 (> 60); eGFR For Non-African Americans > 60 (> 60)
[2019-02-02 01:06] LABS: Troponin I < 0.03 ng/mL (< 0.04)
[2019-02-02] MEDS ORDERED: Azithromycin 500 MG in D5% in Water 250 ML IVPB STA (01:12)
[2019-02-02] MEDS ORDERED: Piperacillin/Tazobactam 3.375 GM in 0.9 % Sodium Chloride Mini Bag 100 ML IVPB ONE (01:12)
[2019-02-02 01:20] LABS: Thyroid Stimulating Hormone 1.082 mcIU/mL (0.340-5.600)
--- NOTE | 2019-02-02 02:02 | Emergency Department Note ---
Disposition Clinical Impression: Pneumonia Qualifiers: Pneumonia type: due to unspecified organism Laterality: left Lung location: lower lobe of lung Qualified Code(s): J18.1 - Lobar pneumonia, unspecified organism CHF exacerbation Qualifiers: Heart failure type: systolic Qualified Code(s): I50.23 - Acute on chronic systolic (congestive) heart failure Acute and chronic respiratory failure ([id number]) Qualifiers: Respiratory failure complication: hypoxia and hypercapnia Qualified Code(s): J96.21 - Acute and chronic respiratory failure with hypoxia Disposition: Admitted As Inpatient Condition: Fair Time of Disposition: 03:20 General Adult HPI - General Chief complaint: ED Shortness of Breath/Dyspnea Stated complaint: sob x3 days Time Seen by Provider: 02/01/19 22:46 Source: patient Limitations: no limitations Nursing Notes Reviewed: Yes Vital Signs Reviewed: Yes - History of Present Illness Pain Scale: 8 - Related Data Home Medications Medication Instructions Recorded Confirmed Albuterol Sulfate [Ventolin Hfa] 2 puff IH Q4H PRN 11/16/16 01/10/19 Atenolol [Tenormin] 25 mg PO DAILY 11/16/16 01/10/19 Folic Acid 1 mg PO DAILY 11/16/16 01/10/19 Ipratropium/Albuterol Neb [Duoneb] 3 ml IH QID PRN 11/16/16 01/10/19 Lovastatin [Mevacor] 20 mg PO DAILY 11/16/16 01/10/19 Potassium Chloride [Klor-Con 10] 10 meq PO BID 11/16/16 01/10/19 amLODIPine [Norvasc] 5 mg PO DAILY 11/16/16 01/10/19 Alendronate Sodium [Fosamax] 70 mg PO TU 12/31/16 01/10/19 Cholecalciferol (Vitamin D3) 50,000 unit PO 01/21/17 01/10/19 [Vitamin D3] Oxygen 4 l NS AD 01/21/17 01/10/19 Escitalopram [Lexapro] 10 mg PO DAILY 08/31/17 12/08/18 Furosemide [Lasix] 40 mg PO QAM 01/02/18 01/10/19 Levothyroxine Sodium [Levo-T] 200 mcg PO QAM 01/02/18 01/10/19 Losartan Potassium [Cozaar] 100 mg PO DAILY 01/02/18 01/10/19 Albuterol Neb [Proventil Neb] 2.5 mg IH QID PRN 10/13/18 01/10/19 Docusate [Colace] 100 mg PO BID PRN 10/13/18 01/10/19 Furosemide [Lasix] 20 mg PO QPM 10/13/18 01/10/19 Linagliptin [Tradjenta] 5 mg PO DAILY 10/13/18 01/10/19 Apixaban [Eliquis] 5 mg PO BID 11/19/18 01/10/19 Metformin HCl [Fortamet] 1,500 mg PO QPM 11/19/18 01/10/19 Aspirin [Adult Aspirin] 81 mg PO DAILY 12/08/18 01/10/19 Previous Rx's Medication Instructions Recorded Azithromycin [Zithromax] 500 mg PO DAILY #3 tablet 01/12/19 Gabapentin [Neurontin] 300 mg PO BID #20 capsule 01/12/19 predniSONE [PredniSONE] 30 mg PO DAILY #6 tablet 01/12/19 Allergies Allergy/AdvReac Type Severity Reaction Status Date / Time No Known Allergies Allergy Verified 02/01/19 22:41 Past Medical History - Past Medical History Medical history: Reports: COPD, diabetes, hyperlipidemia, hypertension, pulmonary embolus, thyroid disease, other Surgical history: Reports: cholecystectomy Psychiatric history: Reports: anxiety, depression - Social History Smoking Status: Former smoker Smokeless Tobacco Status: No Alcohol use: Reports: none Drug use: Reports: none Physical Exam - General Limitations: no limitations General appearance: alert Course Vital Signs Temperature 97.7 F 02/01/19 22:34 Pulse Rate 50 02/01/19 22:34 Respiratory Rate 20 02/01/19 22:34 Blood Pressure 121/65 02/01/19 22:34 O2 Sat by Pulse Oximetry 92 02/01/19 22:34 Temperature 97.4 F L 02/02/19 04:23 Pulse Rate 92 02/02/19 04:23 Respiratory Rate 21 02/02/19 04:52 Blood Pressure 132/74 02/02/19 04:23 O2 Sat by Pulse Oximetry 96 02/02/19 04:52 Oxygen Delivery Oxygen Delivery Oximizer Medical Decision Making - Medical Records Medical records reviewed: Yes I reviewed the patient's medical records. - Lab Data Lab results reviewed: Yes I reviewed the patient's lab results. Result diagrams: 02/02/19 01:56 02/02/19 00:22 Lab Results 02/01/19 02/01/19 02/01/19 Range/Units 00:22 23:04 23:37 WBC (4.3-11.1) K/mcL RBC (3.82-4.97) M/mcL Hgb (11.5-15.4) g/dL Hct (35.3-44.9) % MCV (83.0-100.0) fL MCH (28.0-33.3) pg MCHC (31.6-35.5) g/dL RDW (11.5-14.5) % Plt Count (140-400) K/mcL MPV (9.4-12.4) fL Immature Gran % (0-4) % Seg Neutrophils % % Lymphocytes % % Monocytes % % Eosinophils % % Basophils % % Neutrophils # (1.6-8.9) K/mcL Lymphocytes # (0.6-4.6) K/mcL Monocytes # (0.0-1.3) K/mcL Eosinophils # (0.0-0.6) K/mcL Basophils # (0.0-0.2) K/mcL Sodium (136-145) mEq/L Potassium (3.5-5.1) mEq/L Chloride (98-107) mEq/L Carbon Dioxide (23-29) mEq/L BUN (8-23) mg/dL Creatinine (0.60-1.20) mg/dL Est GFR ( Amer) (> 60) Est GFR (Non-Af Amer) (> 60) BUN/Creatinine Ratio (6-26) Glucose (70-105) mg/dL POC Glucose 161 H (70-99) mg/dL Calculated Osmolality (280-300) Lactic Acid (0.5-2.2) mmol/L Calcium (8.6-10.3) mg/dL Magnesium (1.6-2.6) mg/dL Troponin I (< 0.04) ng/mL B-Natriuretic Peptide (Less than 100) pg/mL TSH (0.340-5.600) mcIU/mL Urine Color Yellow (Yellow) Urine Clarity Clear (Clear) Urine pH 5.0 (5.0-8.0) pH Units Ur Specific [place] 1.015 (1.010-1.025) Urine Protein Negative (Neg-Trace) mg/dL Urine Glucose (UA) Normal (Normal) mg/dL Urine Ketones Negative (Negative) mg/dL Urine Blood Negative (Negative) Urine Nitrite Negative (Negative) Urine Bilirubin Negative (Negative) Urine Urobilinogen Normal (Normal) mg/dL Ur Leukocyte Esterase Negative (Negative) Ur Culture Indicated? NO (NO) Specimen Rejected MCV Delta 02/02/19 02/02/19 02/02/19 Range/Units 00:22 00:22 00:22 WBC (4.3-11.1) K/mcL RBC (3.82-4.97) M/mcL Hgb (11.5-15.4) g/dL Hct (35.3-44.9) % MCV (83.0-100.0) fL MCH (28.0-33.3) pg MCHC (31.6-35.5) g/dL RDW (11.5-14.5) % Plt Count (140-400) K/mcL MPV (9.4-12.4) fL Immature Gran % (0-4) % Seg Neutrophils % % Lymphocytes % % Monocytes % % Eosinophils % % Basophils % % Neutrophils # (1.6-8.9) K/mcL Lymphocytes # (0.6-4.6) K/mcL Monocytes # (0.0-1.3) K/mcL Eosinophils # (0.0-0.6) K/mcL Basophils # (0.0-0.2) K/mcL Sodium 146 H (136-145) mEq/L Potassium 4.2 (3.5-5.1) mEq/L Chloride 97 L (98-107) mEq/L Carbon Dioxide 45 H* (23-29) mEq/L BUN 19 (8-23) mg/dL Creatinine 0.74 (0.60-1.20) mg/dL Est GFR ( Amer) > 60 (> 60) Est GFR (Non-Af Amer) > 60 (> 60) BUN/Creatinine Ratio 26 (6-26) Glucose 150 H (70-105) mg/dL POC Glucose (70-99) mg/dL Calculated Osmolality 307 H (280-300) Lactic Acid 0.6 (0.5-2.2) mmol/L Calcium 9.1 (8.6-10.3) mg/dL Magnesium 2.0 (1.6-2.6) mg/dL Troponin I < 0.03 (< 0.04) ng/mL B-Natriuretic Peptide (Less than 100) pg/mL TSH 1.082 (0.340-5.600) mcIU/mL Urine Color (Yellow) Urine Clarity (Clear) Urine pH (5.0-8.0) pH Units Ur Specific [place] (1.010-1.025) Urine Protein (Neg-Trace) mg/dL Urine Glucose (UA) (Normal) mg/dL Urine Ketones (Negative) mg/dL Urine Blood (Negative) Urine Nitrite (Negative) Urine Bilirubin (Negative) Urine Urobilinogen (Normal) mg/dL Ur Leukocyte Esterase (Negative) Ur Culture Indicated? (NO) Specimen Rejected 02/02/19 02/02/19 Range/Units 00:22 01:56 WBC 9.3 (4.3-11.1) K/mcL RBC 3.74 L (3.82-4.97) M/mcL Hgb 10.9 L (11.5-15.4) g/dL Hct 37.5 (35.3-44.9) % MCV 100.3 H (83.0-100.0) fL MCH 29.1 (28.0-33.3) pg MCHC 29.1 L (31.6-35.5) g/dL RDW 13.2 (11.5-14.5) % Plt Count 150 (140-400) K/mcL MPV 10.7 (9.4-12.4) fL Immature Gran % 0.3 (0-4) % Seg Neutrophils % 82.8 % Lymphocytes % 10.0 % Monocytes % 5.8 % Eosinophils % 0.9 % Basophils % 0.2 % Neutrophils # 7.7 (1.6-8.9) K/mcL Lymphocytes # 0.9 (0.6-4.6) K/mcL Monocytes # 0.5 (0.0-1.3) K/mcL Eosinophils # 0.1 (0.0-0.6) K/mcL Basophils # 0.0 (0.0-0.2) K/mcL Sodium (136-145) mEq/L Potassium (3.5-5.1) mEq/L Chloride (98-107) mEq/L Carbon Dioxide (23-29) mEq/L BUN (8-23) mg/dL Creatinine (0.60-1.20) mg/dL Est GFR ( Amer) (> 60) Est GFR (Non-Af Amer) (> 60) BUN/Creatinine Ratio (6-26) Glucose (70-105) mg/dL POC Glucose (70-99) mg/dL Calculated Osmolality (280-300) Lactic Acid (0.5-2.2) mmol/L Calcium (8.6-10.3) mg/dL Magnesium (1.6-2.6) mg/dL Troponin I (< 0.04) ng/mL B-Natriuretic Peptide 509 H (Less than 100) pg/mL TSH (0.340-5.600) mcIU/mL Urine Color (Yellow) Urine Clarity (Clear) Urine pH (5.0-8.0) pH Units Ur Specific [place] (1.010-1.025) Urine Protein (Neg-Trace) mg/dL Urine Glucose (UA) (Normal) mg/dL Urine Ketones (Negative) mg/dL Urine Blood (Negative) Urine Nitrite (Negative) Urine Bilirubin (Negative) Urine Urobilinogen (Normal) mg/dL Ur Leukocyte Esterase (Negative) Ur Culture Indicated? (NO) Specimen Rejected - Radiology Data Radiology results reviewed: Yes I reviewed the patient's radiology results. Chest X-Ray 02/01/19 22:58 IMPRESSION: Emphysema with COPD. Suspect mild superimposed pulmonary edema and small left pleural effusion, not substantially changed since 01/29/2019. Left basilar opacities, favored to reflect a combination of atelectasis and effusion although superimposed infection could be present in the appropriate context.. D/ / Johnathon Song / Johnathon Song Interpreting Provider: Johnathon Song - EKG Data EKG #1 EKG attestation: Yes I reviewed and interpreted this EKG. EKG results narrative: EKG shows a sinus bradycardia with ventricular rate of 52. No significant ST segment elevation or depression. No arrhythmia or ectopy. No significant change from prior EKG dated 01/29/2019. Critical Care Time Critical Care Time: Yes Total Critical Care Time: 35 Attestation: Critical care performed: Time is exclusive of separately billable procedures. Time includes: direct patient care, patient reassessment, coordination of patient care, interpretation of data (laboratory data, radiology data, and respiratory data), review of patient's medical records, medical consultation and documentation of patient car e. Procedures included in critical care time: Procedures excluded from critical care time: Attestation Statement - Attestation Attestation: I, Javier Dutta MD, personally evaluated this patient and discussed their management with the resident physician. I reviewed the resident's note and agree with the documented findings, medical decision making, and plan of care. I reviewed the residents documentation and agree with the residents assessment and plan of care. I have personally had face to face time with the patient. I personally supervised and was present for the jimenes/critical portions of the following procedures completed by the resident: EKG interpretation. 73-year-old female presented to the emergency department from an extended care facility with a complaint of increased shortness of breath over the past 3 days. Patient was recently admitted to the hospital for the same symptoms and was discharged to rehabilitation at the half-way. She was seen here in the emergency department 3 days ago. She presents again tonight from a half-way for increased shortness of breath. Have some cough with some thick clear sputum production. She denies any fever or chest pain. On examination patient is a well-developed well-nourished elderly female in no acute distress. She is alert and oriented. No cyanosis or diaphoresis. Breath sounds are markedly decreased bilaterally with some bibasilar rales. No definite wheezes noted. Heart regular rate and rhythm. Abdomen soft and nontender with present bowel sounds. Patient has chronic appearing edema and discoloration of both lower extremities with dressings to the left lower extremity. EKG shows a sinus bradycardia with ventricular rate of 52. No significant ST segment elevation or depression. No arrhythmia or ectopy. No significant change from prior EKG dated 01/29/2019. EKG shows COPD with some possible superimposed pulmonary edema. Also left lower lobe air space disease, likely atelectasis and effusion but cannot rule out infection. Labs reviewed. Patient received IV Lasix. She was started on broad-spectrum antibiotics. The hospitalist, Dr. Genao, was consulted and accepted admission of the patient.
[2019-02-02] MEDS: Furosemide 40 MG/4 ML VIAL IVP ONE (02:32)
[2019-02-02 03:00] LABS: Basophils % 0.2 %; Eosinophils # 0.1 K/mcL (0.0-0.6); Eosinophils % 0.9 %; Hematocrit 37.5 % (35.3-44.9); Hemoglobin 10.9 g/dL (11.5-15.4); Immature Granulocytes % 0.3 % (0-4); Lymphocytes # 0.9 K/mcL (0.6-4.6); Mean Corpuscular HGB Conc 29.1 g/dL (31.6-35.5); Mean Corpuscular Hemoglobin 29.1 pg (28.0-33.3); Mean Corpuscular Volume 100.3 fL (83.0-100.0); Mean Platelet Volume 10.7 fL (9.4-12.4); Monocytes # 0.5 K/mcL (0.0-1.3); Monocytes % 5.8 %; Neutrophils # 7.7 K/mcL (1.6-8.9); Platelet Count 150 K/mcL (140-400); Red Blood Count 3.74 M/mcL (3.82-4.97); Red Cell Distribution Width 13.2 % (11.5-14.5); Segmented Neutrophils % 82.8 %; White Blood Count 9.3 K/mcL (4.3-11.1)
[2019-02-02] MEDS: MethylPREDNISolone 40 MG/ML VIAL IVP SCH ×3 (06:34→17:14)
[2019-02-02] MEDS: Ipratropium/Albuterol Neb 3 ML IH SCH ×4 (06:38→22:13)
--- NOTE | 2019-02-02 08:12 | Internal Med History&Physical ---
Date of Encounter: 02/02/19 Time of Encounter: 08:12 Internal Medicine - H&P: HPI Chief complaint: shortness of breath History of present illness: 73-year-old female with past medical history of COPD, CVA, diabetes, hyperlipidemia, hypertension, pulmonary embolus, thyroid disease, TIA. She was recently hospitalized for acute COPD exacerbation and acute on chronic hypoxia with hypercapnia and was suppose to follow-up with pulmonology and now presented to the emergency from nursing facility with progressive worsening of shortness of breath associated with Number that the and generalized weakness. The patient is on home oxygen for COPD. The patient denies chest pain, palpitation, orthopnea, paroxysmal nocturnal dyspnea, progressive worsening of lower extremity edema, vomiting, diarrhea, fever, and chills. chest x-ray revealed Left basilar opacities, favored to reflect a combination of atelectasis and effusion although superimposed infection could be present. The patient was admitted for further evaluation and management of COPD exacerbation as well as p ossible hospital-acquired pneumonia. The patient is DNR however she stated that her current code status in not her wishes and that was the decision of her daughter. In the presence of RN as a witness, I confirmed that patient is oriented to place,time and person and discussed code status. I was able identify that patient might not aware of the difference between comfort care and DNR-DNI. After I discussed with her all options, It was clear that she still would like to be DNR - DNI, but would like all possible medical care including (invasive procedures if needed) to be provided in case if she would not be able to speak for herself untill her heart stop, then she would prefer medication only to revive her, other than that she would like the nature to take its course. Past Med Surg Social Fam HX - Past Medical History Medical history: COPD, CVA, diabetes, hyperlipidemia, hypertension, pulmonary embolus, thyroid disease, TIA, other Additional medical history: CVA (2015) Psychiatric history: anxiety, depression - Past Surgical History Surgical History: cholecystectomy Additional surgical history: Throat biopsy, back surgery - Social History Smoking Status: Current every day smoker Packs per day: 2-3 cigarettes Smokeless Tobacco Status: No Alcohol use: none Drug use: none - Family History Father Family Member Ethnicity: Non- Living Status: Hx Family Cardiac Disorders: Yes (Stroke,) Hx Family Respiratory Disorders: Yes Hx Family Endocrine Disorder: Yes (Diabetes) Mother History Unknown: Yes Adopted: No Living Status: Hx Family Cardiac Disorders: Yes Hx Family Respiratory Disorders: Yes Hx Family Cancer: Yes Hx Family GI Disorders: No Hx Family Genitourinary Disorders: No Hx Family Endocrine Disorder: No Hx Family Musculoskeletal Disorders: No Hx Family Neuromuscular Disorders: No Hx Family Neurologic Disorders: No Hx Family HEENT Disorders: No Hx Family Autoimmune Disorders: No Hx Family Reproductive Disorders: No Internal Medicine - H&P: Meds Atenolol [Tenormin] 25 mg PO DAILY 11/16/16 [History] Folic Acid 1 mg PO DAILY 11/16/16 [History] Lovastatin [Mevacor] 20 mg PO HS 11/16/16 [History] Potassium Chloride [Klor-Con 10] 10 meq PO BID 11/16/16 [History] Alendronate Sodium [Fosamax] 70 mg PO TU 12/31/16 [History] Escitalopram [Lexapro] 10 mg PO DAILY 08/31/17 [History] Levothyroxine Sodium [Levo-T] 200 mcg PO DAILY 01/02/18 [History] Losartan Potassium [Cozaar] 100 mg PO DAILY 01/02/18 [History] Albuterol Neb [Proventil Neb] 2.5 mg IH QID PRN 10/13/18 [History] Docusate [Colace] 100 mg PO BID PRN 10/13/18 [History] Linagliptin [Tradjenta] 5 mg PO DAILY 10/13/18 [History] Aspirin [Adult Aspirin] 81 mg PO DAILY 12/08/18 [History] Gabapentin [Neurontin] 300 mg PO BID #20 capsule 01/12/19 [Rx] Acetaminophen [Tylenol] 650 mg PO Q6HR PRN 02/02/19 [History] Albuterol Sulfate [Albuterol Inhaler] 2 puff IH Q4H PRN 02/02/19 [History] Apixaban [Eliquis] 5 mg PO BID 02/02/19 [History] Ergocalciferol (VITAMIN D2) [Vitamin D2] 50,000 unit PO TU 02/02/19 [History] Fluticasone/Umeclidin/Vilanter [Trelegy Ellipta 100-62.5-25] 1 puff IH DAILY 02/02/19 [History] Furosemide [Lasix] 40 mg PO QAM 02/02/19 [History] Insulin LISPRO [HumaLOG] 0 units SQ ACHS 02/02/19 [History] Ipratropium/Albuterol Sulfate [Iprat-Albut 0.5-3(2.5) mg/3 ml] 3 ml IH QID PRN 02/02/19 [History] metFORMIN [Glucophage] 1,500 mg PO QPM 02/02/19 [History] Furosemide [Lasix] 40 mg PO QPM #60 tablet 02/05/19 [Rx] HYDROcodone/Acet 5/325 mg [Tropic 5-325 mg] 1 tab PO Q6HR PRN 2 Days #8 tablet 02/05/19 [Rx] amLODIPine [Norvasc] 5 mg PO DAILY #60 tablet 02/05/19 [Rx] levoFLOXacin [Levaquin] 750 mg PO DAILY #1 tablet 02/05/19 [Rx] predniSONE [PredniSONE] 40 mg PO DAILY #13 tablet 02/05/19 [Rx] Allergy/AdvReac Type Severity Reaction Status Date / Time No Known Allergies Allergy Verified 02/02/19 09:29 All Systems PM: A 10-system review of systems was performed and is negative for pertinent findings except as documented above in the HPI. - Constitutional Vitals: Temp Pulse Resp BP Pulse Ox 97.8 F 53 24 104/59 95 02/02/19 07:45 02/02/19 07:45 02/02/19 07:45 02/02/19 07:45 02/02/19 07:45 General appearance: Present: A&O X 3 Exam: - - Head Head exam: Present: atraumatic, normocephalic - Neck Neck exam general surgery: Present: supple, trachea midline. Absent: lymphadenopathy - Respiratory Respiratory exam: Present: CTAB. Absent: accessory muscle use, rales, rhonchi, wheezes - Cardiovascular Cardiovascular exam: Present: RRR, +S1, +S2. Absent: diastolic murmur, gallop, rubs, systolic murmur - GI/Abdominal GI/Abdominal exam: Present: normal bowel sounds, soft, no peritoneal signs. Absent: distended, tenderness - Extremities Exam Extremities exam: Present: pedal edema, warm, radial pulses palpable and symmetrical. Absent: calf tenderness, cyanotic - Skin Skin exam: Present: erythema, excoriation, rash Internal Med - H&P Results - Labs CBC & Chem 7: 02/05/19 03:52 02/05/19 03:52 Labs: Short CBC 02/02/19 Range/Units 01:56 WBC 9.3 (4.3-11.1) K/mcL Hgb 10.9 L (11.5-15.4) g/dL Hct 37.5 (35.3-44.9) % Plt Count 150 (140-400) K/mcL Neutrophils # 7.7 (1.6-8.9) K/mcL BMP 02/02/19 00:22 Sodium 146 H Potassium 4.2 Chloride 97 L Carbon Dioxide 45 H* BUN 19 Creatinine 0.74 Glucose 150 H Calcium 9.1 Cardiac Enzymes 02/02/19 Range/Units 00:22 Troponin I < 0.03 (< 0.04) ng/mL Urine 02/01/19 Range/Units 23:37 Urine Color Yellow (Yellow) Urine Clarity Clear (Clear) Urine pH 5.0 (5.0-8.0) pH Units Ur Specific [place] 1.015 (1.010-1.025) Urine Protein Negative (Neg-Trace) mg/dL Urine Glucose (UA) Normal (Normal) mg/dL - Impressions ITS Impressions Chest X-Ray 02/01/19 22:58 IMPRESSION: Emphysema with COPD. Suspect mild superimposed pulmonary edema and small left pleural effusion, not substantially changed since 01/29/2019. Left basilar opacities, favored to reflect a combination of atelectasis and effusion although superimposed infection could be present in the appropriate context.. D/ / Johnathon Song / Johnathon Song Interpreting Provider: Johnathon Song - Assessment and Plan (1) Acute exacerbation of chronic obstructive airways disease Status: Acute Assessment and plan: ASSESSMENT: - SOB due to COPD exacerbation caused by URTI vs allergen exposure vs medication nonocompliance R/o Hospital acquired Pneumonia - no clear cut infiltrate on CXR, there is Left basilar opacities, favored to reflect a combination of atelectasis and effusion although superimposed infection could be present. PLAN: - Aerosols q 4 hr and PRN SOB - Solu-medrol 40 mg IV q 6 hr - O2 to keep SpO2 higher than 92% (SpO higher than 95% if CAD) - CBCD, BMP in AM - Sputum Gram stain, C+S - Tylenol 650 mg PO q 4-6 hr PRN pain/fever - ABs (2) Diabetes mellitus Status: Chronic Assessment and plan: we will start the patient on insulin sliding scale with moderate coverage. 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 (3) Nicotine dependence Status: Chronic Qualifiers: Nicotine product type: cigarettes Substance use status: unspecified nicotine-induced disorder Qualified Code(s): F17.219 - Nicotine dependence, cigarettes, with unspecified nicotine-induced disorders (4) History of CVA (cerebrovascular accident) Status: Chronic (5) Hypertension Status: Chronic Qualifiers: Hypertension type: essential hypertension Qualified Code(s): I10 - Essential (primary) hypertension (6) Hypothyroidism Status: Chronic Assessment and plan: We will continue home thyroxine Qualifiers: Hypothyroidism type: unspecified Qualified Code(s): E03.9 - Hypothyroidism, unspecified (7) Cellulitis of lower leg Status: Acute Assessment and plan: Appear to be chronic with some ulceration, we will consult wound care. (8) History of DVT (deep vein thrombosis) Status: Acute Assessment and plan: We will place SCDs - Time Spent With Patient Total time spent is greater than 50% in coordination of care (as documented) at patient's floor/unit and/or counseling patient:
[2019-02-02] MEDS ORDERED: Acetaminophen 325 MG TABLET PO PRN ×2 (09:43→09:48)
[2019-02-02] MEDS ORDERED: Ondansetron 4 MG/2 ML VIAL IVP PRN (09:43)
[2019-02-02] MEDS ORDERED: Naloxone 0.4 MG/ML INJ IVP PRN (09:43)
[2019-02-02] MEDS ORDERED: Ipratropium/Albuterol Neb 3 ML IH PRN (09:48)
[2019-02-02] MEDS ORDERED: Albuterol 2.5 MG/3 ML NEBULIZER IH PRN (09:48)
[2019-02-02] MEDS: *HR* HYDROcodone/Acet 5/325 mg TABLET PO PRN ×2 (12:17→21:10)
[2019-02-02] MEDS ORDERED: Dextrose Gel 15 GM/37.5 ML TUBE PO PRN ×2 (16:14)
[2019-02-02] MEDS ORDERED: *HR* Dextrose 50 % in Water (Syg) 50 ML SYRINGE IVP PRN (16:14)
[2019-02-02] MEDS ORDERED: D5% in Water 1,000 ML IVC PRN (16:14)
[2019-02-02] MEDS: Insulin LISPRO 300 UNITS/3 ML VIAL SQ SCH ×2 (17:14→21:08)
[2019-02-02 17:15] LABS: Estimated Average Glucose 146 mg/dl; Hemoglobin A1C 6.7 %
--- NOTE | 2019-02-02 17:41 | Electrocardiograph Report ---
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
[2019-02-02] MEDS: Gabapentin 300 MG CAPSULE PO SCH (21:07)
[2019-02-02] MEDS: Apixaban 5 MG TABLET PO SCH (21:08)
[2019-02-02 21:09] LABS: ABG Base Excess 15 mEq/L (-2 to 3); ABG HCO3 44 mEq/L (21-27); ABG Oxygen Saturation 86 % (95-98); ABG PCO2 87 mmHg (35-45); ABG PH 7.31 pH Units (7.32-7.45); ABG PO2 59 mmHg (85-104); ABG TCO2 47 mEq/L (20-26)
[2019-02-03] MEDS: MethylPREDNISolone 40 MG/ML VIAL IVP SCH ×2 (00:21→19:05)
[2019-02-03] MEDS: Piperacillin/Tazobactam 3.375 GM in 0.9 % Sodium Chloride Mini Bag 100 ML IVPB SCH ×4 (00:21→23:26)
[2019-02-03] MEDS: Ipratropium/Albuterol Neb 3 ML IH SCH ×5 (04:04→23:35)
[2019-02-03 05:14] LABS: Basophils % 0.2 %; Hematocrit 32.3 % (35.3-44.9); Hemoglobin 10.2 g/dL (11.5-15.4); Immature Granulocytes % 0.2 % (0-4); Lymphocytes # 0.4 K/mcL (0.6-4.6); Mean Corpuscular HGB Conc 31.6 g/dL (31.6-35.5); Mean Corpuscular Hemoglobin 29.8 pg (28.0-33.3); Mean Corpuscular Volume 94.4 fL (83.0-100.0); Mean Platelet Volume 11.2 fL (9.4-12.4); Monocytes # 0.1 K/mcL (0.0-1.3); Monocytes % 2.4 %; Neutrophils # 4.9 K/mcL (1.6-8.9); Platelet Count 130 K/mcL (140-400); Red Blood Count 3.42 M/mcL (3.82-4.97); Red Cell Distribution Width 13.2 % (11.5-14.5); Segmented Neutrophils % 90.2 %; White Blood Count 5.4 K/mcL (4.3-11.1)
[2019-02-03 05:17] LABS: INR 1.2; Prothrombin Time 13.3 Seconds (9.4-12.1)
[2019-02-03 05:19] LABS: Activated Partial Thrombo Time 21.4 Seconds (26.0-36.0)
[2019-02-03 05:26] LABS: Alanine Aminotransferase 4 Units/L (7-52); Albumin 3.7 g/dL (3.5-5.7); Albumin/Globulin Ratio 1.9 (1.1-2.2); Alkaline Phosphatase 65 Units/L (34-104); Aspartate Amino Transferase 9 Units/L (13-39); BUN/Creatinine Ratio 39 (6-26); Bilirubin,Total 0.4 mg/dL (0.3-1.0); Blood Urea Nitrogen 30 mg/dL (8-23); Calcium 9.1 mg/dL (8.6-10.3); Carbon Dioxide 40 mEq/L (23-29); Chloride 103 mEq/L (98-107); Chol/HDL Ratio 3.3 (0-4.9); Cholesterol 136 mg/dL (< 200); Glucose 242 mg/dL (70-105); HDL Cholesterol 41 mg/dL (40-59); LDL Cholesterol,Calculated 75 mg/dL (0-99); Magnesium 2.1 mg/dL (1.6-2.6); Osmolality,Calculated 302 (280-300); Potassium 4.1 mEq/L (3.5-5.1); Sodium 139 mEq/L (136-145); Total Protein 5.7 g/dL (6.4-8.9); Triglycerides 98 mg/dL (< 150); eGFR For African Americans > 60 (> 60); eGFR For Non-African Americans > 60 (> 60)
[2019-02-03 06:51] LABS: ABG Base Excess 16 mEq/L (-2 to 3); ABG HCO3 43 mEq/L (21-27); ABG Oxygen Saturation 85 % (95-98); ABG PCO2 65 mmHg (35-45); ABG PH 7.43 pH Units (7.32-7.45); ABG PO2 52 mmHg (85-104); ABG TCO2 45 mEq/L (20-26)
[2019-02-03] MEDS ORDERED: Furosemide 40 MG TABLET PO SCH (09:00)
[2019-02-03] MEDS: Apixaban 5 MG TABLET PO SCH ×2 (09:50→22:00)
[2019-02-03] MEDS: amLODIPine 5 MG TABLET PO SCH (09:50)
[2019-02-03] MEDS: Folic Acid 1 MG TABLET PO SCH (09:50)
[2019-02-03] MEDS: Insulin LISPRO 300 UNITS/3 ML VIAL SQ SCH ×4 (09:51→20:58)
[2019-02-03] MEDS: Aspirin Enteric Coated 81 MG Tablet PO SCH (09:51)
[2019-02-03] MEDS: *HR* HYDROcodone/Acet 5/325 mg TABLET PO PRN (09:51)
[2019-02-03] MEDS: Gabapentin 300 MG CAPSULE PO SCH ×2 (10:44→22:01)
--- NOTE | 2019-02-03 12:39 | Internal Med Progress Note ---
Hospitalist Progress Note - Encounter Date of Encounter: 02/03/19 Time of Encounter: 11:45 - Subjective Interval History: Reports mild improvement in her shortness of breath. Denies any fever/chills or significant sputum production. No chest pain - Exam Vitals: Temp Pulse Resp BP Pulse Ox 98.2 F 71 18 152/52 96 02/03/19 12:30 02/03/19 12:30 02/03/19 12:30 02/03/19 12:30 02/03/19 12:30 Exam: General: Alert and oriented, not in acute distress. Cardiovascular:Normal S1 & S2, No JVD. Pulse regular. Lungs: diminished bilaterally with minimal wheezes Abdomen:Soft, non-tender, no rigidity. Extremities:No deformity or swelling Neurological:Normal cognition and motor skills. Non-focal - Assessment and Plan (1) Acute and chronic respiratory failure ([id number]) Current Visit: Yes Status: Acute Assessment and Plan: Chest x-ray is reported to show left basilar opacities likely from atelectasis + effusion but could also represent consolidative changes from PNA nevertheless, she did not endorse much sputum production nor fever/chiils. No leukocytosis as well too pt also has hx of HFpEF and is noted to have elevated BNP on presentation ?decom pensated heart failure nevertheless, pt was empirically started on vanc/zosyn and reports improvement, will continue for today and add IV diuretics. Repeat CXR tomorrow MRSA screen, strep/legionella ag continue steroid and bronchodilators wean O2 as tolerated BiPAP PRN (2) (HFpEF) heart failure with preserved ejection fraction Current Visit: Yes Status: Acute Assessment and Plan: her symptoms could possibly be attributed to CHF exacerbation, will give IV diuretics today and repeat CXR tomorrow morning (3) Acute exacerbation of chronic obstructive airways disease Current Visit: Yes Status: Acute Assessment and Plan: as above (4) Diabetes mellitus Current Visit: No Status: Chronic Assessment and Plan: metformin and tradjenta on hold moderate dose sliding scale (5) Hypothyroidism Current Visit: No Status: Chronic Assessment and Plan: Continue levothyroxine (6) Hypertension Current Visit: No Status: Chronic Assessment and Plan: Resume home meds (7) History of CVA (cerebrovascular accident) Current Visit: No Status: Chronic Assessment and Plan: ASA and statin (8) Pulmonary embolism Current Visit: No Status: Chronic Assessment and Plan: Continue Eliquis - Time Spent with Patient Total time spent is greater than 50% in coordination of care (as documented) at patient's floor/unit and/or counseling patient: 25 - 35 minutes Plan of Care Discussed with: patient Internal Medicine: Result - Labs CBC & Chem 7: 02/03/19 04:44 02/03/19 04:44 Labs: Short CBC 02/03/19 Range/Units 04:44 WBC 5.4 (4.3-11.1) K/mcL Hgb 10.2 L (11.5-15.4) g/dL Hct 32.3 L (35.3-44.9) % Plt Count 130 L (140-400) K/mcL Neutrophils # 4.9 (1.6-8.9) K/mcL BMP 02/03/19 04:44 Sodium 139 Potassium 4.1 Chloride 103 Carbon Dioxide 40 H* BUN 30 H Creatinine 0.77 Glucose 242 H Calcium 9.1 Cardiac Enzymes 02/02/19 02/02/19 Range/Units 16:29 21:54 Troponin I < 0.03 < 0.03 (< 0.04) ng/mL Liver Function 02/03/19 Range/Units 04:44 Total Bilirubin 0.4 (0.3-1.0) mg/dL AST 9 L (13-39) Units/L ALT 4 L (7-52) Units/L Alkaline Phosphatase 65 (34-104) Units/L Albumin 3.7 (3.5-5.7) g/dL - ABG Interpretation ABG results: ABG ABG pH 7.43 pH Units (7.32-7.45) 02/03/19 06:48 ABG pCO2 65 mmHg (35-45) H 02/03/19 06:48 ABG pO2 52 mmHg (85-104) L 02/03/19 06:48 ABG O2 Saturation 85 % (95-98) L 02/03/19 06:48 PT/INR, D-dimer PT 13.3 Seconds (9.4-12.1) H 02/03/19 04:44 Consult Discharge Plan - Plan Referrals: NONE,PCP [Primary Care Provider] - (1) Acute and chronic respiratory failure ([id number]) Qualifiers: Respiratory failure complication: hypoxia and hypercapnia Qualified Code(s): J96.21 - Acute and chronic respiratory failure with hypoxia; J96.22 - Acute and chronic respiratory failure with hypercapnia (2) (HFpEF) heart failure with preserved ejection fraction Qualifiers: Heart failure chronicity: acute on chronic Qualified Code(s): I50.33 - Acute on chronic diastolic (congestive) heart failure (4) Diabetes mellitus Qualifiers: Diabetes mellitus type: type 2 Diabetes mellitus senior care insulin use: with senior care use Diabetes mellitus complication status: with hyperglycemia Qualified Code(s): E11.65 - Type 2 diabetes mellitus with hyperglycemia; Z79.4 - assisted (current) use of insulin (5) Hypothyroidism Qualifiers: Hypothyroidism type: unspecified Qualified Code(s): E03.9 - Hypothyroidism, unspecified (6) Hypertension Qualifiers: Hypertension type: essential hypertension Qualified Code(s): I10 - Essential (primary) hypertension (8) Pulmonary embolism Qualifiers: Pulmonary embolism type: other Chronicity: chronic Acute cor pulmonale presence: without acute cor pulmonale Qualified Code(s): I27.82 - Chronic p ulmonary embolism
[2019-02-03 13:01] LABS: Adenovirus Not Detected (Not Detect); Bordetella Pertussis Not Detected (Not Detect); Chlamydophila pneumoniae Not Detected (Not Detect); Coronavirus 229E Not Detected (Not Detect); Coronavirus HKU1 Not Detected (Not Detect); Coronavirus NL63 Not Detected (Not Detect); Coronavirus OC43 Not Detected (Not Detect); Human Metapneumovirus Not Detected (Not Detect); Human Rhinovirus/Enterovirus Not Detected (Not Detect); Influenza A Subtype 2009 H1 Not Detected (Not Detect); Influenza A Untypeable Not Detected (Not Detect); Influenza B Not Detected (Not Detect); Mycoplasma pneumoniae Not Detected (Not Detect); Parainfluenza Virus 1 Not Detected (Not Detect); Parainfluenza Virus 2 Not Detected (Not Detect); Parainfluenza Virus 3 Not Detected (Not Detect); Parainfluenza Virus 4 Not Detected (Not Detect); Respiratory Syncytial Virus Not Detected (Not Detect)
[2019-02-03] MEDS ORDERED: Furosemide 40 MG/4 ML VIAL IVP ONE (17:00)
[2019-02-03] MEDS ORDERED: Furosemide 20 MG TABLET PO SCH (18:00)
[2019-02-04 03:32] LABS: Basophils % 0.2 %; Eosinophils # 0.2 K/mcL (0.0-0.6); Eosinophils % 3.2 %; Hematocrit 28.4 % (35.3-44.9); Hemoglobin 8.8 g/dL (11.5-15.4); Immature Granulocytes % 0.2 % (0-4); Lymphocytes # 0.9 K/mcL (0.6-4.6); Lymphocytes % 14.7 %; Mean Corpuscular Hemoglobin 29.3 pg (28.0-33.3); Mean Corpuscular Volume 94.7 fL (83.0-100.0); Mean Platelet Volume 10.6 fL (9.4-12.4); Monocytes # 0.3 K/mcL (0.0-1.3); Monocytes % 4.9 %; Neutrophils # 4.8 K/mcL (1.6-8.9); Platelet Count 135 K/mcL (140-400); Red Cell Distribution Width 13.4 % (11.5-14.5); Segmented Neutrophils % 76.8 %; White Blood Count 6.2 K/mcL (4.3-11.1)
[2019-02-04 03:55] LABS: BUN/Creatinine Ratio 39 (6-26); Blood Urea Nitrogen 25 mg/dL (8-23); Calcium 8.7 mg/dL (8.6-10.3); Carbon Dioxide 43 mEq/L (23-29); Chloride 98 mEq/L (98-107); Glucose 155 mg/dL (70-105); Magnesium 1.9 mg/dL (1.6-2.6); Osmolality,Calculated 304 (280-300); Potassium 3.1 mEq/L (3.5-5.1); Sodium 143 mEq/L (136-145); eGFR For African Americans > 60 (> 60); eGFR For Non-African Americans > 60 (> 60)
[2019-02-04] MEDS: Ipratropium/Albuterol Neb 3 ML IH SCH ×6 (03:58→23:58)
[2019-02-04 04:31] LABS: ABG Base Excess 19 mEq/L (-2 to 3); ABG HCO3 45 mEq/L (21-27); ABG Oxygen Saturation 96 % (95-98); ABG PCO2 65 mmHg (35-45); ABG PH 7.45 pH Units (7.32-7.45); ABG PO2 81 mmHg (85-104); ABG TCO2 47 mEq/L (20-26); Blood Gas Modality avaps; Blood Gas PEEP 8 cm H2O; Blood Gas VT 500 cc
[2019-02-04] MEDS: MethylPREDNISolone 40 MG/ML VIAL IVP SCH ×2 (05:28→18:21)
[2019-02-04] MEDS ORDERED: Furosemide 40 MG/4 ML VIAL ONE (08:47)
[2019-02-04] MEDS: Folic Acid 1 MG TABLET PO SCH (08:55)
[2019-02-04] MEDS: Gabapentin 300 MG CAPSULE PO SCH ×2 (08:55→20:30)
[2019-02-04] MEDS: Aspirin Enteric Coated 81 MG Tablet PO SCH (08:55)
[2019-02-04] MEDS: amLODIPine 5 MG TABLET PO SCH (08:55)
[2019-02-04] MEDS: Furosemide 40 MG/4 ML VIAL IVP ONE (08:56)
[2019-02-04] MEDS: Apixaban 5 MG TABLET PO SCH ×2 (08:56→20:30)
[2019-02-04] MEDS: Potassium Chloride Elixir 20 MEQ/15 ML UDC PO SCH ×2 (08:57→12:36)
[2019-02-04] MEDS: Insulin LISPRO 300 UNITS/3 ML VIAL SQ SCH ×4 (08:57→20:30)
[2019-02-04] MEDS: Piperacillin/Tazobactam 3.375 GM in 0.9 % Sodium Chloride Mini Bag 100 ML IVPB SCH ×3 (08:57→23:23)
[2019-02-04] MEDS: Furosemide 40 MG/4 ML VIAL IVP SCH (12:23)
--- NOTE | 2019-02-04 12:27 | Internal Med Progress Note ---
Hospitalist Progress Note - Encounter Date of Encounter: 02/04/19 Time of Encounter: 11:15 - Subjective Interval History: Patient states that her breathing slightly worsened yesterday. Requiring 6L of O2 currently. There was an issue with her IV Access which was only obtained at 1999 last night, hence she did not receive a dose of IV lasix that was ordered earlier during the day. Mild LE swelling noted. - Exam Vitals: Temp Pulse Resp BP Pulse Ox 97.9 F 60 20 171/85 93 02/04/19 11:36 02/04/19 11:36 02/04/19 11:36 02/04/19 11:36 02/04/19 11:36 Exam: General: Alert and oriented, not in acute distress. Cardiovascular:Normal S1 & S2, No JVD. Pulse regular. Mild pitting LE edema bilaterally Lungs: diminished bilaterally with minimal wheezes. Unable to appreciate much rales due to poor effort Abdomen:Soft, non-tender, no rigidity. Extremities:No deformity or swelling Neurological:Normal cognition and motor skills. Non-focal - Assessment and Plan (1) Acute and chronic respiratory failure ([id number]) Current Visit: Yes Status: Acute Assessment and Plan: Initial CXR is reported to show left basilar opacities likely from atelectasis + effusion but could also represent consolidative changes from PNA nevertheless, she did not endorse much sputum production nor fever/chiils. No leukocytosis as well too pt also has hx of HFpEF and is noted to have elevated BNP on presentation ?decompensated heart failure nevertheless, pt was empirically started on vanc/zosyn and reports improvement, continue. Will d/c Vanc pending MRSA swab repeat CXR today shows worsening edema, did not receive any IV diuretics apart from the PO dose that she is on at home IV lasix 40mg once, may dose another one in the afternoon depending on her clinical course strep/legionella ag -ve continue steroid and bronchodilators wean O2 as tolerated BiPAP PRN (2) (HFpEF) heart failure with preserved ejection fraction Current Visit: Yes Status: Acute Assessment and Plan: her symptoms could possibly be attributed to CHF exacerbation, especially given the CXR finding 02/04 that showed progression of pulm edema (was not given IV lasix due to lack of IV Access) will give IV diuretics today and monitor limited echo (3) Acute exacerbation of chronic obstructive airways disease Current Visit: Yes Status: Acute Assessment and Plan: as above (4) Diabetes mellitus Current Visit: No Status: Chronic Assessment and Plan: metformin and tradjenta on hold moderate dose sliding scale (5) Hypothyroidism Current Visit: No Status: Chronic Assessment and Plan: Continue levothyroxine (6) Hypertension Current Visit: No Status: Chronic Assessment and Plan: Resume home meds (7) History of CVA (cerebrovascular accident) Current Visit: No Status: Chronic Assessment and Plan: ASA and statin (8) Pulmonary embolism Current Visit: No Status: Chronic Assessment and Plan: Continue Eliquis DVT Prophylaxis: On Eliquis - Time Spent with Patient Total time spent is greater than 50% in coordination of care (as documented) at patient's floor/unit and/or counseling patient: 25 - 35 minutes Plan of Care Discussed with: patient (discussed with RN) Internal Medicine: Result - Labs CBC & Chem 7: 02/04/19 03:18 02/04/19 03:18 Labs: Short CBC 02/04/19 Range/Units 03:18 WBC 6.2 (4.3-11.1) K/mcL Hgb 8.8 L (11.5-15.4) g/dL Hct 28.4 L (35.3-44.9) % Plt Count 135 L (140-400) K/mcL Neutrophils # 4.8 (1.6-8.9) K/mcL BMP 02/04/19 03:18 Sodium 143 Potassium 3.1 L Chloride 98 Carbon Dioxide 43 H* BUN 25 H Creatinine 0.64 Glucose 155 H Calcium 8.7 - ABG Interpretation ABG results: ABG ABG pH 7.45 pH Units (7.32-7.45) 02/04/19 04:24 ABG pCO2 65 mmHg (35-45) H 02/04/19 04:24 ABG pO2 81 mmHg (85-104) L 02/04/19 04:24 ABG O2 Saturation 96 % (95-98) 02/04/19 04:24 PT/INR, D-dimer PT 13.3 Seconds (9.4-12.1) H 02/03/19 04:44 - Impressions Impressions Chest X-Ray 02/04/19 06:00 IMPRESSION: 1. Findings suggesting progressive acute congestive heart failure with new trace right and mild progressive mild left pleural effusion. 2. Progressive left lung base consolidation which may represent atelectasis versus superimposed pneumonia. D/ / 02/04/2019 11:39:08 Sebastian Barker MD / Kely Samson Interpreting Provider: Sebastian Barker MD Consult Discharge Plan - Plan Referrals: NONE,PCP [Primary Care Provider] - (1) Acute and chronic respiratory failure ([id number]) Qualifiers: Respiratory failure complication: hypoxia and hypercapnia Qualified Code(s): J96.21 - Acute and chronic respiratory failure with hypoxia; J96.22 - Acute and chronic respiratory failure with hypercapnia (2) (HFpEF) heart failure with preserved ejection fraction Qualifiers: Heart failure chronicity: acute on chronic Qualified Code(s): I50.33 - Acute on chronic diastolic (congestive) heart failure (4) Diabetes mellitus Qualifiers: Diabetes mellitus type: type 2 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 Diabetes mellitus complication status: with hyperglycemia Qualified Code(s): E11.65 - Type 2 diabetes mellitus with hyperglycemia; 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
[2019-02-04] MEDS: *HR* HYDROcodone/Acet 5/325 mg TABLET PO PRN (16:48)
[2019-02-05] MEDS: Ipratropium/Albuterol Neb 3 ML IH SCH ×3 (03:41→10:57)
[2019-02-05 04:08] LABS: Basophils % 0.2 %; Hematocrit 32.3 % (35.3-44.9); Hemoglobin 10.1 g/dL (11.5-15.4); Immature Granulocytes % 0.6 % (0-4); Lymphocytes # 0.4 K/mcL (0.6-4.6); Lymphocytes % 6.9 %; Mean Corpuscular HGB Conc 31.3 g/dL (31.6-35.5); Mean Corpuscular Hemoglobin 29.5 pg (28.0-33.3); Mean Corpuscular Volume 94.4 fL (83.0-100.0); Mean Platelet Volume 10.1 fL (9.4-12.4); Monocytes # 0.2 K/mcL (0.0-1.3); Monocytes % 3.1 %; Neutrophils # 4.7 K/mcL (1.6-8.9); Platelet Count 152 K/mcL (140-400); Red Blood Count 3.42 M/mcL (3.82-4.97); Red Cell Distribution Width 13.2 % (11.5-14.5); Segmented Neutrophils % 89.2 %; White Blood Count 5.2 K/mcL (4.3-11.1)
[2019-02-05 04:25] LABS: % Iron Saturation 19 % (15-50); Iron 58 mcg/dL (50-170); Transferrin 223 mg/dL (203-362)
[2019-02-05 04:40] LABS: BUN/Creatinine Ratio 31 (6-26); Blood Urea Nitrogen 23 mg/dL (8-23); Calcium 8.9 mg/dL (8.6-10.3); Carbon Dioxide 43 mEq/L (23-29); Chloride 97 mEq/L (98-107); Glucose 212 mg/dL (70-105); Osmolality,Calculated 304 (280-300); Sodium 142 mEq/L (136-145); eGFR For African Americans > 60 (> 60); eGFR For Non-African Americans > 60 (> 60)
[2019-02-05] MEDS: MethylPREDNISolone 40 MG/ML VIAL IVP SCH (05:18)
[2019-02-05] MEDS: *HR* HYDROcodone/Acet 5/325 mg TABLET PO PRN (05:30)
[2019-02-05] MEDS ORDERED: amLODIPine 5 MG TABLET PO SCH (09:00)
[2019-02-05] MEDS: Insulin LISPRO 300 UNITS/3 ML VIAL SQ SCH ×2 (09:10→12:19)
[2019-02-05] MEDS: Piperacillin/Tazobactam 3.375 GM in 0.9 % Sodium Chloride Mini Bag 100 ML IVPB SCH (09:11)
[2019-02-05] MEDS: Folic Acid 1 MG TABLET PO SCH (09:12)
[2019-02-05] MEDS: Apixaban 5 MG TABLET PO SCH (09:13)
[2019-02-05] MEDS: Furosemide 40 MG/4 ML VIAL IVP SCH (09:13)
[2019-02-05] MEDS: Gabapentin 300 MG CAPSULE PO SCH (09:13)
[2019-02-05] MEDS: Aspirin Enteric Coated 81 MG Tablet PO SCH (09:13)
--- NOTE | 2019-02-05 09:30 | Discharge Summary ---
- NOTES TO OUTPATIENT PROVIDER Notes to Outpatient Provider: Follow up with Pulmonary and PCP as an outpatient Orders not resulted at time of discharge: Pending orders 02/01/19 22:58 Culture,Blood [BC] Stat 02/04/19 12:23 Occult Blood,Stool [BF] Routine Date of Encounter: 02/05/19 Time of Encounter: 07:45 - Discharge Diagnosis (1) Acute and chronic respiratory failure ([id number]) Priority: Primary Status: Acute Qualifiers: Respiratory failure complication: hypoxia and hypercapnia Qualified Code(s): J96.21 - Acute and chronic respiratory failure with hypoxia; J96.22 - Acute and chronic respiratory failure with hypercapnia (2) (HFpEF) heart failure with preserved ejection fraction Priority: Secondary Status: Acute Qualifiers: Heart failure chronicity: acute on chronic Qualified Code(s): I50.33 - Acute on chronic diastolic (congestive) heart failure (3) Acute exacerbation of chronic obstructive airways disease Priority: Secondary Status: Acute (4) Diabetes mellitus Priority: Secondary Status: Chronic Qualifiers: Diabetes mellitus type: type 2 Diabetes mellitus retirement insulin use: with retirement use Diabetes mellitus complication status: with hyperglycemia Qualified Code(s): E11.65 - Type 2 diabetes mellitus with hyperglycemia; Z79.4 - [facility] (current) use of insulin (5) Hypothyroidism Priority: Secondary Status: Chronic Qualifiers: Hypothyroidism type: unspecified Qualified Code(s): E03.9 - Hypothyroidism, unspecified (6) Hypertension Priority: Secondary Status: Chronic Qualifiers: Hypertension type: essential hypertension Qualified Code(s): I10 - Essential (primary) hypertension (7) History of CVA (cerebrovascular accident) Priority: Secondary Status: Chronic (8) Pulmonary embolism Priority: Secondary Status: Chronic Qualifiers: Pulmonary embolism type: other Chronicity: chronic Acute cor pulmonale presence: without acute cor pulmonale Qualified Code(s): I27.82 - Chronic pulmonary embolism (9) Pneumonia Priority: Secondary Status: Acute Qualifiers: Pneumonia type: due to unspecified organism Laterality: left Lung location: lower lobe of lung Qualified Code(s): J18.1 - Lobar pneumonia, unspecified organism Hospital course: Ms. Jhaveri is a 73 year old female with history of oxygen dependent COPD, HFpEF, CVA, DM, PE, HTN, who was admitted for acute on chronic hypoxic/hypercarbic respiratory failure. Initially attributed to HCAP complicated by COPD exacerbation mainly but pt did not have any fever/chills nor leukocytosis. She did marginally improve on IV abx, steroid, and bronchodilators, but she had the most significant improvement after being started on IV diuretics that was started given worsening pulmonary edema on repeat chest x-ray. Therefore, she will be discharged on a short course of Levaquin (as the dx for PNA is not as strong), 2 week steroid taper, and increased dose of lasix to 40mg BID. Norvasc was increased to 10mg QD to optimize BP control as well. Discharge discussed with: patient, nurse, social work, case management - Time Spent with Patient Total time spent providing and/or coordinating discharge services: 33 mins - Discharge Medications Prescriptions: New levoFLOXacin [Levaquin] 750 mg PO DAILY #1 tablet HYDROcodone/Acet 5/325 mg [[place] 5-325 mg] 1 tab PO Q6HR PRN 2 Days #8 tablet PRN Reason: Severe Pain predniSONE [PredniSONE] 40 mg PO DAILY #13 tablet Continued Lovastatin [Mevacor] 20 mg PO HS Folic Acid 1 mg PO DAILY Atenolol [Tenormin] 25 mg PO DAILY Potassium Chloride [Klor-Con 10] 10 meq PO BID Alendronate Sodium [Fosamax] 70 mg PO TU Escitalopram [Lexapro] 10 mg PO DAILY Levothyroxine Sodium [Levo-T] 200 mcg PO DAILY Losartan Potassium [Cozaar] 100 mg PO DAILY Albuterol Neb [Proventil Neb] 2.5 mg IH QID PRN PRN Reason: Shortness Of Breath Linagliptin [Tradjenta] 5 mg PO DAILY Docusate [Colace] 100 mg PO BID PRN PRN Reason: Constipation Aspirin [Adult Aspirin] 81 mg PO DAILY Gabapentin [Neurontin] 300 mg PO BID #20 capsule Fluticasone/Umeclidin/Vilanter [Trelegy Ellipta 100-62.5-25] 1 puff IH DAILY Acetaminophen [Tylenol] 650 mg PO Q6HR PRN PRN Reason: MILD PAIN/FEVER Albuterol Sulfate [Albuterol Inhaler] 2 puff IH Q4H PRN PRN Reason: Shortness Of Breath Apixaban [Eliquis] 5 mg PO BID Ergocalciferol (VITAMIN D2) [Vitamin D2] 50,000 unit PO TU Furosemide [Lasix] 40 mg PO QAM Insulin LISPRO [HumaLOG] 0 units SQ ACHS Ipratropium/Albuterol Sulfate [Iprat-Albut 0.5-3(2.5) mg/3 ml] 3 ml IH QID PRN PRN Reason: Shortness Of Breath metFORMIN [Glucophage] 1,500 mg PO QPM amLODIPine [Norvasc] 5 mg PO DAILY #60 tablet Changed Furosemide [Lasix] 40 mg PO QPM #60 tablet Home Medications: Atenolol [Tenormin] 25 mg PO DAILY 11/16/16 [History] Folic Acid 1 mg PO DAILY 11/16/16 [History] Lovastatin [Mevacor] 20 mg PO 11/16/16 [History] Potassium Chloride [Klor-Con 10] 10 meq PO BID 11/16/16 [History] Alendronate Sodium [Fosamax] 70 mg PO TU 12/31/16 [History] Escitalopram [Lexapro] 10 mg PO DAILY 08/31/17 [History] Levothyroxine Sodium [Levo-T] 200 mcg PO DAILY 01/02/18 [History] Losartan Potassium [Cozaar] 100 mg PO DAILY 01/02/18 [History] Albuterol Neb [Proventil Neb] 2.5 mg IH QID PRN 10/13/18 [History] Docusate [Colace] 100 mg PO BID PRN 10/13/18 [History] Linagliptin [Tradjenta] 5 mg PO DAILY 10/13/18 [History] Aspirin [Adult Aspirin] 81 mg PO DAILY 12/08/18 [History] Gabapentin [Neurontin] 300 mg PO BID #20 capsule 01/12/19 [Rx] Acetaminophen [Tylenol] 650 mg PO Q6HR PRN 02/02/19 [History] Albuterol Sulfate [Albuterol Inhaler] 2 puff IH Q4H PRN 02/02/19 [History] Apixaban [Eliquis] 5 mg PO BID 02/02/19 [History] Ergocalciferol (VITAMIN D2) [Vitamin D2] 50,000 unit PO TU 02/02/19 [History] Fluticasone/Umeclidin/Vilanter [Trelegy Ellipta 100-62.5-25] 1 puff IH DAILY 02/02/19 [History] Furosemide [Lasix] 40 mg PO QAM 02/02/19 [History] Insulin LISPRO [HumaLOG] 0 units SQ ACHS 02/02/19 [History] Ipratropium/Albuterol Sulfate [Iprat-Albut 0.5-3(2.5) mg/3 ml] 3 ml IH QID PRN 02/02/19 [History] metFORMIN [Glucophage] 1,500 mg PO QPM 02/02/19 [History] Furosemide [Lasix] 40 mg PO QPM #60 tablet 02/05/19 [Rx] HYDROcodone/Acet 5/325 mg [[place] 5-325 mg] 1 tab PO Q6HR PRN 2 Days #8 tablet 02/05/19 [Rx] amLODIPine [Norvasc] 5 mg PO DAILY #60 tablet 02/05/19 [Rx] levoFLOXacin [Levaquin] 750 mg PO DAILY #1 tablet 02/05/19 [Rx] predniSONE [PredniSONE] 40 mg PO DAILY #13 tablet 02/05/19 [Rx] Allergies/Adverse Reactions: Allergy/AdvReac Type Severity Reaction Status Date / Time No Known Allergies Allergy Verified 02/02/19 09:29 Date of admission: 02/04/19 16:45 Primary care physician: PCP NONE Consults: 02/02/19 04:24 Consult to Nutrition [CONS] Routine Comment: Consulting Provider: NUTRITION Reason for Dietary Consult: MST Score Consult to Pastoral Services [CONS] Routine Comment: 02/02/19 04:48 Consult to Nurse Navigator [CONS] Routine Comment: 02/02/19 11:21 Consult to Acoustical Installer [CONS] Routine Reason for SW Consult: patient admitted from facility 02/02/19 11:22 Consult to Wound Care [CONS] Routine Reason for Consult: Bilateral Leg Wounds Call Completed: Yes - Constitutional Vitals: Temp Pulse Resp BP Pulse Ox 98.8 F 69 19 154/65 92 02/05/19 07:52 02/05/19 07:52 02/05/19 07:52 02/05/19 07:52 02/05/19 07:52 General appearance: Present: A&O X 3 Exam: General: Alert and oriented, not in acute distress. Cardiovascular:Normal S1 & S2, No JVD. Pulse regular. Mild pitting LE edema bilaterally Lungs: diminished bilaterally with minimal wheezes. Unable to appreciate much rales due to poor effort Abdomen:Soft, non-tender, no rigidity. Extremities:No deformity or swelling Neurological:Normal cognition and motor skills. Non-focal - Patient Status Disposition: Transfer SNF Condition: Fair Overall status at discharge: patient is progressing back to baseline - Discharge Instructions Instructions: Chronic Obstructive Pulmonary Disease (DC), Heart Failure (DC) Follow Up With: NONE,PCP [Primary Care Provider] - - Diet and Activity Activity: as per physical therapy Diet: diabetic diet, low salt diet
--- NOTE | 2019-02-05 09:42 | Physician Discharge Referral ---
ExtendedCare Referral Info Institutional Level of Care: Skilled - Diagnosis (1) Acute and chronic respiratory failure ([id number]) Priority: Primary Status: Acute (2) (HFpEF) heart failure with preserved ejection fraction Priority: Secondary Status: Acute (3) Acute exacerbation of chronic obstructive airways disease Priority: Secondary Status: Acute (4) Diabetes mellitus Priority: Secondary Status: Chronic (5) Hypothyroidism Priority: Secondary Status: Chronic (6) Hypertension Priority: Secondary Status: Chronic (7) History of CVA (cerebrovascular accident) Priority: Secondary Status: Chronic (8) Pulmonary embolism Priority: Secondary Status: Chronic (9) Pneumonia Priority: Secondary Status: Acute - Transfer Medications Prescriptions: Furosemide [Lasix] 40 mg PO QPM #60 tablet levoFLOXacin [Levaquin] 750 mg PO DAILY #1 tablet HYDROcodone/Acet 5/325 mg [[place] 5-325 mg] 1 tab PO Q6HR PRN 2 Days #8 tablet PRN Reason: Severe Pain amLODIPine [Norvasc] 5 mg PO DAILY #60 tablet predniSONE [PredniSONE] 40 mg PO DAILY #13 tablet Home Medications: Atenolol [Tenormin] 25 mg PO DAILY 11/16/16 [History] Folic Acid 1 mg PO DAILY 11/16/16 [History] Lovastatin [Mevacor] 20 mg PO HS 11/16/16 [History] Potassium Chloride [Klor-Con 10] 10 meq PO BID 11/16/16 [History] Alendronate Sodium [Fosamax] 70 mg PO TU 12/31/16 [History] Escitalopram [Lexapro] 10 mg PO DAILY 08/31/17 [History] Levothyroxine Sodium [Levo-T] 200 mcg PO DAILY 01/02/18 [History] Losartan Potassium [Cozaar] 100 mg PO DAILY 01/02/18 [History] Albuterol Neb [Proventil Neb] 2.5 mg IH QID PRN 10/13/18 [History] Docusate [Colace] 100 mg PO BID PRN 10/13/18 [History] Linagliptin [Tradjenta] 5 mg PO DAILY 10/13/18 [History] Aspirin [Adult Aspirin] 81 mg PO DAILY 12/08/18 [History] Gabapentin [Neurontin] 300 mg PO BID #20 capsule 01/12/19 [Rx] Acetaminophen [Tylenol] 650 mg PO Q6HR PRN 02/02/19 [History] Albuterol Sulfate [Albuterol Inhaler] 2 puff IH Q4H PRN 02/02/19 [History] Apixaban [Eliquis] 5 mg PO BID 02/02/19 [History] Ergocalciferol (VITAMIN D2) [Vitamin D2] 50,000 unit PO TU 02/02/19 [History] Fluticasone/Umeclidin/Vilanter [Trelegy Ellipta 100-62.5-25] 1 puff IH DAILY 02/02/19 [History] Furosemide [Lasix] 40 mg PO QAM 02/02/19 [History] Insulin LISPRO [HumaLOG] 0 units SQ ACHS 02/02/19 [History] Ipratropium/Albuterol Sulfate [Iprat-Albut 0.5-3(2.5) mg/3 ml] 3 ml IH QID PRN 02/02/19 [History] metFORMIN [Glucophage] 1,500 mg PO QPM 02/02/19 [History] Furosemide [Lasix] 40 mg PO QPM #60 tablet 02/05/19 [Rx] HYDROcodone/Acet 5/325 mg [[place] 5-325 mg] 1 tab PO Q6HR PRN 2 Days #8 tablet 02/05/19 [Rx] amLODIPine [Norvasc] 5 mg PO DAILY #60 tablet 02/05/19 [Rx] levoFLOXacin [Levaquin] 750 mg PO DAILY #1 tablet 02/05/19 [Rx] predniSONE [PredniSONE] 40 mg PO DAILY #13 tablet 02/05/19 [Rx] Allergies/Adverse Reactions: Allergy/AdvReac Type Severity Reaction Status Date / Time No Known Allergies Allergy Verified 02/02/19 09:29 - Respiratory Orders Oxygen / L per min (4L continuous) Smoking Cessation: Smoking cessation has been advised. For more information, call the [place] Tobacco Quit Line at 9-208-SGPR-NOW. - Rehabiliation Orders Rehab Orders: Evaluation for Physical Therapy, Evaluation for Occupational Therapy CERTIFICATION: I certify that the transfer of the above named patient to an Extended Care Facility is necessary for the continuing treatment of the diagnosis listed. The above information is true and accurate reflection of patient's current condition. Confidential - Redisclosure prohibited without a patient's written consent.
[2019-02-05 11:20] VITALS: BP 163/77
[2019-02-06] MEDS ORDERED: (Alendronate Sodium [Fosamax] 70 MG) PO SCH (06:00)
== END 2019-02-05 15:01 | DRG 194 ==
LOC: EMEROOARM 22:33 → 3NENU 22:33 → SUATTDRO 02-02 02:57 → 3NENU 02-02 04:00
PROVIDERS: ADMIT Internal Medicine; ATTEND Internal Medicine

== ENCOUNTER 2019-04-20 21:01 | Inpatient (IN) ==
[2019-04-20] MEDS ORDERED: Ipratropium/Albuterol Neb 3 ML IH ONE (21:15)
[2019-04-20] MEDS ORDERED: methylPREDNISolone 125 MG/2 ML VIAL IVP ONE (21:15)
--- NOTE | 2019-04-20 21:29 | Emergency Department Note ---
Disposition Clinical Impression: Acute on chronic respiratory failure with hypoxia and hypercapnia, Respiratory acidosis, Elevated brain natriuretic peptide (BNP) level, COPD exacerbation UTI (urinary tract infection) Qualifiers: Urinary tract infection type: acute cystitis Hematuria presence: with hematuria Qualified Code(s): N30.01 - Acute cystitis with hematuria Hypothyroidism Qualifiers: Hypothyroidism type: unspecified Qualified Code(s): E03.9 - Hypothyroidism, unspecified Disposition: Admitted As Inpatient Referrals: NONE,PCP [Primary Care Provider] - Forms: ED Satisfaction Letter Time of Disposition: 00:36 General Adult HPI - General Time Seen by Provider: 04/20/19 21:14 Source: EMS Mode of arrival: EMS Limitations: altered mental status Nursing Notes Reviewed: Yes Vital Signs Reviewed: Yes - History of Present Illness HPI Narrative: Patient is a 73-year-old female with past medical history including oxygen-de pendent COPD, congestive heart failure, prior CVA, hypothyroidism, diabetes mellitus, pulmonary embolism on Eliquis, hypertension, presenting with altered mental status and respiratory distress. The patient was recently admitted in January for acute on chronic hypercarbic respiratory failure. She was treated with IV antibiotics, steroids, bronchodilators. She had IV diuretics that she had worsening pulmonary edema. She was discharged home on a short course of Levaquin with a steroid taper. She has been residing in a alf she recently came home from the alf. EMS states that the family told them that she was more sleepy today, more confused than usual. She would not wake up at times. They would try to place her on the BiPAP and she would ask them to take them it off after several minutes. This has been going on since this morning. She is not complaining of any chest pain. History is limited as family is not at bedside. The patient arrived, she was sleeping, she did respond to sternal rub and painful stimuli and would open her eyes and track. She did not answer any questions. She is tachypneic and has a quiet chest concerning for COPD exacerbation. Glucose 180 per EMS - Related Data Home Medications Medication Instructions Recorded Confirmed Atenolol [Tenormin] 25 mg PO DAILY 11/16/16 02/02/19 Folic Acid 1 mg PO DAILY 11/16/16 02/02/19 Lovastatin [Mevacor] 20 mg PO HS 11/16/16 02/02/19 Potassium Chloride [Klor-Con 10] 10 meq PO BID 11/16/16 02/02/19 Alendronate Sodium [Fosamax] 70 mg PO TU 12/31/16 02/02/19 Escitalopram [Lexapro] 10 mg PO DAILY 08/31/17 02/02/19 Levothyroxine Sodium [Levo-T] 200 mcg PO DAILY 01/02/18 02/02/19 Losartan Potassium [Cozaar] 100 mg PO DAILY 01/02/18 02/02/19 Albuterol Neb [Proventil Neb] 2.5 mg IH QID PRN 10/13/18 02/02/19 Docusate [Colace] 100 mg PO BID PRN 10/13/18 02/02/19 Linagliptin [Tradjenta] 5 mg PO DAILY 10/13/18 02/02/19 Aspirin [Adult Aspirin] 81 mg PO DAILY 12/08/18 02/02/19 Acetaminophen [Tylenol] 650 mg PO Q6HR PRN 02/02/19 02/02/19 Albuterol Sulfate [Proventil 2 puff IH Q4H PRN 02/02/19 02/02/19 Inhaler] Apixaban [Eliquis] 5 mg PO BID 02/02/19 02/02/19 Ergocalciferol (VITAMIN D2) 50,000 unit PO TU 02/02/19 02/02/19 [Vitamin D2] Fluticasone/Umeclidin/Vilanter 1 puff IH DAILY 02/02/19 02/02/19 [Trelegy Ellipta 100-62.5-25] Furosemide [Lasix] 40 mg PO QAM 02/02/19 02/02/19 Insulin LISPRO [HumaLOG] 0 units SQ ACHS 02/02/19 02/02/19 Ipratropium/Albuterol Sulfate 3 ml IH QID PRN 02/02/19 02/02/19 [Iprat-Albut 0.5-3(2.5) mg/3 ml] metFORMIN [Glucophage] 1,500 mg PO QPM 02/02/19 02/02/19 Gabapentin [Neurontin] 300 mg PO HS 04/20/19 04/20/19 Methotrexate [Otrexup] 12.5 mg PO NEGRETE 04/20/19 04/20/19 Oxymetazoline [Afrin] 2 spray NS Q12HR PRN 04/20/19 04/20/19 cloNIDine HCl [CloNIDine HCl] 0.1 mg PO BID 04/20/19 04/20/19 Previous Rx's Medication Instructions Recorded amLODIPine [Norvasc] 5 mg PO DAILY #60 tablet 02/05/19 Allergies Allergy/AdvReac Type Severity Reaction Status Date / Time No Known Allergies Allergy Verified 02/02/19 09:29 Limitations: ROS unobtainable due to patients medical condition (altered mental status) Past Medical History - Past Medical History Attestation: Yes The following information was validated with the patient. Source: old records reviewed Medical history: Reports: COPD, CVA, diabetes, hyperlipidemia, hypertension, pulmonary embolus, thyroid disease, TIA, other Surgical history: Reports: cholecystectomy Psychiatric history: Reports: anxiety, depression - Social History Smoking Status: Current every day smoker Smokeless Tobacco Status: No Alcohol use: Reports: none Drug use: Reports: none Physical Exam - General Limitations: altered mental status General appearance: other (malodorous, sleeping, awakens and opens eyes to sternal rub and painful stimuli, and to name) - Head Head exam: atraumatic, normocephalic - Eye Eye exam: Present: normal appearance, PERRL - ENT ENT exam: mucous membranes moist - Neck Neck exam: Present: trachea midline - Chest Chest inspection: Present: normal inspection, symmetric chest wall rise - Respiratory Respiratory exam: Present: other (Significantly diminished breath sounds bilaterally, mild scattered expiratory wheezing, no crackles, tachypnea, accessory muscle use is noted) - Cardiovascular Cardiovascular exam: Present: regular rate, normal rhythm - Abdominal Exam Abdominal exam: Present: soft, Non-Tender. Absent: distention - Extremities Exam Extremities exam: Present: normal capillary refill. Absent: pedal edema, calf tenderness - Neurological Exam Neurological exam: Present: other (Sleeping, opens eyes to name, sternal rub, painful stimuli however will not answer questions or follow commands. Spontaneous movements of extremities) - Skin Skin exam: Present: warm, dry. Absent: diaphoresis Course Vital Signs Temperature 96.6 F L 04/20/19 21:15 Pulse Rate 67 04/20/19 21:15 Respiratory Rate 30 04/20/19 21:15 Blood Pressure 183/82 04/20/19 21:15 O2 Sat by Pulse Oximetry 100 04/20/19 21:15 Temperature 96.7 F L 04/20/19 22:52 Pulse Rate 70 04/20/19 23:46 Respiratory Rate 16 04/20/19 23:46 Blood Pressure 121/66 04/20/19 23:46 O2 Sat by Pulse Oximetry 99 04/20/19 23:46 Oxygen Delivery Oxygen Delivery Bipap Medical Decision Making - MDM Narrative Medical decision making narrative: Patient is presenting with altered mental status, respiratory distress. She is likely in a COPD exacerbation, acute on chronic respiratory failure causing her altered mental status, hypercapnia. Respiratory was called and the patient was placed on BiPAP and given triple DuoNeb treatments. She will receive IV Solu- Medrol as well as her lung sounds are significantly diminished with mild scattered expiratory wheezing, quiet chest. She is tachypneic. We were able to awaken the patient and she denies any pain. Her temperature is 96.6 rectal. We are going to obtain a urinalysis as there was foul-smelling urine in the patient's room. We will obtain CBC, BMP, troponin, BNP, lactate, blood cultures, chest x-ray, CT head. We will monitor the patient closely. Anticipate admission. The patient has been intubated in the past multiple t imes. Patient is not bradycardic or hypotensive, do not suspect a myxedema coma she has history of hypothyroidism however we will obtain TSH. She also does not have any prescriptions for any narcotics. Family is currently not at bedside to discuss CODE STATUS and further history. 21:50 pH 7.1 with a CO2 of 132. Patient tolerating BiPAP at this time. Bear hugger will be placed as well for low temperature. 22:15 Labs and imaging reviewed. The patient also has a urinary tract infection. We will start IV Rocephin. Discussed with patient's daughter, Michelle, who states the patient is full code. 00:00 CT head shows no acute intracranial abnormality. The patient was reevaluated. She is tolerating BiPAP. She is much more responsive and able to nod yes and no to questions. Improved air movement. Hospitalist is for admission. 00:[address] Lam, hospitalist, who accepts admission - Medical Records Medical records reviewed: Yes I reviewed the patient's medical records. - Lab Data Lab results reviewed: Yes I reviewed the patient's lab results. Result diagrams: 08/23/19 22:02 04/20/19 22:02 Lab Results 04/20/19 04/20/19 04/20/19 Range/Units 21:29 21:50 22:02 WBC 9.2 (4.3-11.1) K/mcL RBC 3.86 (3.82-4.97) M/mcL Hgb 11.2 L (11.5-15.4) g/dL Hct 37.6 (35.3-44.9) % MCV 97.4 (83.0-100.0) fL MCH 29.0 (28.0-33.3) pg MCHC 29.8 L (31.6-35.5) g/dL RDW 14.6 H (11.5-14.5) % Plt Count 211 (140-400) K/mcL MPV 10.0 (9.4-12.4) fL Immature Gran % 0.9 (0-4) % Seg Neutrophils % 84.9 % Lymphocytes % 7.0 % Monocytes % 4.8 % Eosinophils % 2.2 % Basophils % 0.2 % Neutrophils # 7.8 (1.6-8.9) K/mcL Lymphocytes # 0.6 (0.6-4.6) K/mcL Monocytes # 0.4 (0.0-1.3) K/mcL Eosinophils # 0.2 (0.0-0.6) K/mcL Basophils # 0.0 (0.0-0.2) K/mcL Sample Site R Brach ABG pH 7.17 L* (7.32-7.45) pH Units ABG pCO2 132 H* (35-45) mmHg ABG pO2 111 H (85-104) mmHg ABG HCO3 49 H (21-27) mEq/L ABG Total CO2 > 50 H (20-26) mEq/L ABG O2 Saturation 96 (95-98) % ABG Base Excess 15 H (-2 to 3) mEq/L Chase Test N/A O2 Delivery Device BiPAP Blood Gas Modality BiLevel Inspired O2 50.0 (1-15=lpm [id number]=%) PEEP 7 cm H2O Sodium (136-145) mEq/L Potassium (3.5-5.1) mEq/L Chloride (98-107) mEq/L Carbon Dioxide (23-29) mEq/L BUN (8-23) mg/dL Creatinine (0.60-1.20) mg/dL Est GFR ( Amer) (> 60) Est GFR (Non-Af Amer) (> 60) BUN/Creatinine Ratio (6-26) Glucose (70-105) mg/dL Calculated Osmolality (280-300) Lactic Acid (0.5-2.2) mmol/L Calcium (8.6-10.3) mg/dL Troponin I (< 0.04) ng/mL B-Natriuretic Peptide (Less than 100) pg/mL TSH (0.340-5.600) mcIU/mL Urine Color Yellow (Yellow) Urine Clarity Cloudy A (Clear) Urine pH 5.5 (5.0-8.0) pH Units Ur Specific [place] 1.016 (1.010-1.025) Urine Protein 100 H (Neg-Trace) mg/dL Urine Glucose (UA) Normal (Normal) mg/dL Urine Ketones Negative (Negative) mg/dL Urine Blood Large H (Negative) Urine Nitrite Negative (Negative) Urine Bilirubin Negative (Negative) Urine Urobilinogen Normal (Normal) mg/dL Ur Leukocyte Esterase Moderate H (Negative) Urine Microscopic RBC TNTC H (0-3) per hpf Urine Microscopic WBC 50-100 H (0-3) per hpf Ur Squamous Epith Cells Few (None-Few) per lpf Urine Bacteria Many H (None-Few) per hpf Hyaline Casts None Seen (None-Few) per lpf Ur Culture Indicated? YES A (NO) Person Notif of Jeff Carter 04/20/19 04/20/19 04/20/19 Range/Units 22:02 22:02 22:02 WBC (4.3-11.1) K/mcL RBC (3.82-4.97) M/mcL Hgb (11.5-15.4) g/dL Hct (35.3-44.9) % MCV (83.0-100.0) fL MCH (28.0-33.3) pg MCHC (31.6-35.5) g/dL RDW (11.5-14.5) % Plt Count (140-400) K/mcL MPV (9.4-12.4) fL Immature Gran % (0-4) % Seg Neutrophils % % Lymphocytes % % Monocytes % % Eosinophils % % Basophils % % Neutrophils # (1.6-8.9) K/mcL Lymphocytes # (0.6-4.6) K/mcL Monocytes # (0.0-1.3) K/mcL Eosinophils # (0.0-0.6) K/mcL Basophils # (0.0-0.2) K/mcL Sample Site ABG pH (7.32-7.45) pH Units ABG pCO2 (35-45) mmHg ABG pO2 (85-104) mmHg ABG HCO3 (21-27) mEq/L ABG Total CO2 (20-26) mEq/L ABG O2 Saturation (95-98) % ABG Base Excess (-2 to 3) mEq/L Chase Test O2 Delivery Device Blood Gas Modality Inspired O2 (1-15=lpm [id number]=%) PEEP cm H2O Sodium 143 (136-145) mEq/L Potassium 4.7 (3.5-5.1) mEq/L Chloride 99 (98-107) mEq/L Carbon Dioxide 40 H* (23-29) mEq/L BUN 17 (8-23) mg/dL Creatinine 0.76 (0.60-1.20) mg/dL Est GFR ( Amer) > 60 (> 60) Est GFR (Non-Af Amer) > 60 (> 60) BUN/Creatinine Ratio 22 (6-26) Glucose 169 H (70-105) mg/dL Calculated Osmolality 301 H (280-300) Lactic Acid 0.8 (0.5-2.2) mmol/L Calcium 9.4 (8.6-10.3) mg/dL Troponin I < 0.03 (< 0.04) ng/mL B-Natriuretic Peptide 431 H (Less than 100) pg/mL TSH (0.340-5.600) mcIU/mL Urine Color (Yellow) Urine Clarity (Clear) Urine pH (5.0-8.0) pH Units Ur Specific [place] (1.010-1.025) Urine Protein (Neg-Trace) mg/dL Urine Glucose (UA) (Normal) mg/dL Urine Ketones (Negative) mg/dL Urine Blood (Negative) Urine Nitrite (Negative) Urine Bilirubin (Negative) Urine Urobilinogen (Normal) mg/dL Ur Leukocyte Esterase (Negative) Urine Microscopic RBC (0-3) per hpf Urine Microscopic WBC (0-3) per hpf Ur Squamous Epith Cells (None-Few) per lpf Urine Bacteria (None-Few) per hpf Hyaline Casts (None-Few) per lpf Ur Culture Indicated? (NO) Person Notif of Crit 04/20/19 Range/Units 22:02 WBC (4.3-11.1) K/mcL RBC (3.82-4.97) M/mcL Hgb (11.5-15.4) g/dL Hct (35.3-44.9) % MCV (83.0-100.0) fL MCH (28.0-33.3) pg MCHC (31.6-35.5) g/dL RDW (11.5-14.5) % Plt Count (140-400) K/mcL MPV (9.4-12.4) fL Immature Gran % (0-4) % Seg Neutrophils % % Lymphocytes % % Monocytes % % Eosinophils % % Basophils % % Neutrophils # (1.6-8.9) K/mcL Lymphocytes # (0.6-4.6) K/mcL Monocytes # (0.0-1.3) K/mcL Eosinophils # (0.0-0.6) K/mcL Basophils # (0.0-0.2) K/mcL Sample Site ABG pH (7.32-7.45) pH Units ABG pCO2 (35-45) mmHg ABG pO2 (85-104) mmHg ABG HCO3 (21-27) mEq/L ABG Total CO2 (20-26) mEq/L ABG O2 Saturation (95-98) % ABG Base Excess (-2 to 3) mEq/L Chase Test O2 Delivery Device Blood Gas Modality Inspired O2 (1-15=lpm [id number]=%) PEEP cm H2O Sodium (136-145) mEq/L Potassium (3.5-5.1) mEq/L Chloride (98-107) mEq/L Carbon Dioxide (23-29) mEq/L BUN (8-23) mg/dL Creatinine (0.60-1.20) mg/dL Est GFR ( Amer) (> 60) Est GFR (Non-Af Amer) (> 60) BUN/Creatinine Ratio (6-26) Glucose (70-105) mg/dL Calculated Osmolality (280-300) Lactic Acid (0.5-2.2) mmol/L Calcium (8.6-10.3) mg/dL Troponin I (< 0.04) ng/mL B-Natriuretic Peptide (Less than 100) pg/mL TSH 7.795 H (0.340-5.600) mcIU/mL Urine Color (Yellow) Urine Clarity (Clear) Urine pH (5.0-8.0) pH Units Ur Specific [place] (1.010-1.025) Urine Protein (Neg-Trace) mg/dL Urine Glucose (UA) (Normal) mg/dL Urine Ketones (Negative) mg/dL Urine Blood (Negative) Urine Nitrite (Negative) Urine Bilirubin (Negative) Urine Urobilinogen (Normal) mg/dL Ur Leukocyte Esterase (Negative) Urine Microscopic RBC (0-3) per hpf Urine Microscopic WBC (0-3) per hpf Ur Squamous Epith Cells (None-Few) per lpf Urine Bacteria (None-Few) per hpf Hyaline Casts (None-Few) per lpf Ur Culture Indicated? (NO) Person Notif of Crit - Radiology Data Radiology results reviewed: Yes I reviewed the patient's radiology results. Head CT 04/20/19 21:15 IMPRESSION: No acute intracranial abnormality. D/ / Gregoria Cabello Cha, MD / Gregoria Cabello Cha, MD Interpreting Provider: Gregoria Cabello Cha, MD Chest X-Ray 04/20/19 21:33 IMPRESSION: Emphysema with COPD and possible trace left effusion versus pleural reflection in the setting of hyperinflation. Difficult to exclude mild interstitial edema. Enlarged main pulmonary arteries suggest underlying pulmonary hypertension. D/ / Johnathon Song / Johnathon Song Interpreting Provider: Johnathon Song - EKG Data EKG #1 EKG attestation: Yes I reviewed and interpreted this EKG. EKG results narrative: EKG obtained at 2127 shows sinus rhythm with heart rate 62, OR interval 143, QRS duration 104, QTC 471, no ST elevation, no ST depression, compared to old EKG on 02/01/2019 which shows no new changes.
[2019-04-20 21:42] LABS: Bilirubin,Urine Negative (Negative); Blood,Urine Large (Negative); Clarity,Urine Cloudy (Clear); Color,Urine Yellow (Yellow); Glucose,Urine (UA) Normal (Normal); Ketones,Urine Negative (Negative); Leukocyte Esterase,Urine Moderate (Negative); Nitrite,Urine Negative (Negative); PH,Urine 5.5 pH Units (5.0-8.0); Protein,Urine 100 mg/dL (Neg-Trace); Specific Gravity,Urine 1.016 (1.010-1.025); Urobilinogen,Urine Normal (Normal)
[2019-04-20 21:45] LABS: Bacteria,Urine Many per hpf (None-Few); Hyaline Casts,Urine None Seen per lpf (None-Few); RBC,Urine TNTC per hpf (0-3); Squamous Epithelial Cell,Urine Few per lpf (None-Few); WBC,Urine 50-100 per hpf (0-3)
[2019-04-20 21:55] LABS: ABG Base Excess 15 mEq/L (-2 to 3); ABG HCO3 49 mEq/L (21-27); ABG Oxygen Saturation 96 % (95-98); ABG PCO2 132 mmHg (35-45); ABG PH 7.17 pH Units (7.32-7.45); ABG PO2 111 mmHg (85-104); ABG TCO2 > 50 mEq/L (20-26); Blood Gas Modality BiLevel; Blood Gas PEEP 7 cm H2O
[2019-04-20 22:17] LABS: Basophils % 0.2 %; Eosinophils # 0.2 K/mcL (0.0-0.6); Eosinophils % 2.2 %; Hematocrit 37.6 % (35.3-44.9); Hemoglobin 11.2 g/dL (11.5-15.4); Immature Granulocytes % 0.9 % (0-4); Lymphocytes # 0.6 K/mcL (0.6-4.6); Mean Corpuscular HGB Conc 29.8 g/dL (31.6-35.5); Mean Corpuscular Volume 97.4 fL (83.0-100.0); Monocytes # 0.4 K/mcL (0.0-1.3); Monocytes % 4.8 %; Neutrophils # 7.8 K/mcL (1.6-8.9); Platelet Count 211 K/mcL (140-400); Red Blood Count 3.86 M/mcL (3.82-4.97); Red Cell Distribution Width 14.6 % (11.5-14.5); Segmented Neutrophils % 84.9 %; White Blood Count 9.2 K/mcL (4.3-11.1)
--- NOTE | 2019-04-20 22:23 | Emergency Department Note ---
Disposition Clinical Impression: Acute on chronic respiratory failure with hypoxia and hypercapnia, Respiratory acidosis, Elevated brain natriuretic peptide (BNP) level, COPD exacerbation UTI (urinary tract infection) Qualifiers: Urinary tract infection type: acute cystitis Hematuria presence: with hematuria Qualified Code(s): N30.01 - Acute cystitis with hematuria Hypothyroidism Qualifiers: Hypothyroidism type: unspecified Qualified Code(s): E03.9 - Hypothyroidism, unspecified Disposition: Admitted As Inpatient Condition: Good Referrals: NONE,PCP [Primary Care Provider] - Forms: ED Satisfaction Letter Time of Disposition: 00:36 General Adult HPI - General Chief complaint: ED Shortness of Breath/Dyspnea Stated complaint: SoB/Disoriented Time Seen by Provider: 04/20/19 21:14 Source: EMS Mode of arrival: EMS Limitations: altered mental status - History of Present Illness Pain Scale: 0 - Related Data Home Medications Medication Instructions Recorded Confirmed Atenolol [Tenormin] 25 mg PO DAILY 11/16/16 04/20/19 Folic Acid 1 mg PO DAILY 11/16/16 04/20/19 Lovastatin [Mevacor] 20 mg PO HS 11/16/16 04/20/19 Potassium Chloride [Klor-Con 10] 10 meq PO BID 11/16/16 04/20/19 Alendronate Sodium [Fosamax] 70 mg PO TU 12/31/16 04/20/19 Escitalopram [Lexapro] 10 mg PO DAILY 08/31/17 04/20/19 Levothyroxine Sodium [Levo-T] 200 mcg PO DAILY 01/02/18 04/20/19 Losartan Potassium [Cozaar] 100 mg PO DAILY 01/02/18 04/20/19 Albuterol Neb [Proventil Neb] 2.5 mg IH Q4H PRN 10/13/18 04/20/19 Docusate [Colace] 100 mg PO BID PRN 10/13/18 04/20/19 Linagliptin [Tradjenta] 5 mg PO DAILY 10/13/18 04/20/19 Aspirin [Adult Aspirin] 81 mg PO DAILY 12/08/18 04/20/19 Acetaminophen [Tylenol] 650 mg PO Q4H PRN 02/02/19 04/20/19 Albuterol Sulfate [Proventil 2 puff IH Q4H PRN 02/02/19 04/20/19 Inhaler] Apixaban [Eliquis] 5 mg PO BID 02/02/19 04/20/19 Ergocalciferol (VITAMIN D2) 50,000 unit PO TU 02/02/19 04/20/19 [Vitamin D2] Fluticasone/Umeclidin/Vilanter 1 puff IH DAILY 02/02/19 04/20/19 [Trelegy Ellipta 100-62.5-25] Furosemide [Lasix] 40 mg PO QAM 02/02/19 04/20/19 Insulin LISPRO [HumaLOG] 0 units SQ ACHS 02/02/19 04/20/19 Ipratropium/Albuterol Sulfate 3 ml IH Q4H PRN 02/02/19 04/20/19 [Iprat-Albut 0.5-3(2.5) mg/3 ml] metFORMIN [Glucophage] 1,500 mg PO QPM 02/02/19 04/20/19 Gabapentin [Neurontin] 300 mg PO HS 04/20/19 04/20/19 Methotrexate [Otrexup] 12.5 mg PO NEGRETE 04/20/19 04/20/19 Oxymetazoline [Afrin] 2 spray NS Q12HR PRN 04/20/19 04/20/19 cloNIDine HCl [CloNIDine HCl] 0.1 mg PO BID 04/20/19 04/20/19 Previous Rx's Medication Instructions Recorded amLODIPine [Norvasc] 5 mg PO DAILY #60 tablet 02/05/19 Allergies Allergy/AdvReac Type Severity Reaction Status Date / Time No Known Allergies Allergy Verified 02/02/19 09:29 Past Medical History - Past Medical History Medical history: Reports: COPD, CVA, diabetes, hyperlipidemia, hypertension, pulmonary embolus, thyroid disease, TIA, other Surgical history: Reports: cholecystectomy Psychiatric history: Reports: anxiety, depression - Social History Smoking Status: Current every day smoker Smokeless Tobacco Status: No Alcohol use: Reports: none Drug use: Reports: none Physical Exam - General Limitations: altered mental status General appearance: other (malodorous, sleeping, awakens and opens eyes to sternal rub and painful stimuli, and to name) Course Vital Signs Temperature 96.6 F L 04/20/19 21:15 Pulse Rate 67 04/20/19 21:15 Respiratory Rate 30 04/20/19 21:15 Blood Pressure 183/82 04/20/19 21:15 O2 Sat by Pulse Oximetry 100 04/20/19 21:15 Temperature 96.9 F L 04/21/19 00:20 Pulse Rate 59 04/21/19 00:30 Respiratory Rate 28 04/21/19 00:30 Blood Pressure 110/41 04/21/19 00:30 O2 Sat by Pulse Oximetry 97 04/21/19 00:30 Oxygen Delivery Oxygen Delivery Bipap Medical Decision Making - Lab Data Result diagrams: 04/20/19 22:02 04/20/19 22:02 Lab Results 04/20/19 04/20/19 04/20/19 Range/Units 21:29 21:50 22:02 WBC 9.2 (4.3-11.1) K/mcL RBC 3.86 (3.82-4.97) M/mcL Hgb 11.2 L (11.5-15.4) g/dL Hct 37.6 (35.3-44.9) % MCV 97.4 (83.0-100.0) fL MCH 29.0 (28.0-33.3) pg MCHC 29.8 L (31.6-35.5) g/dL RDW 14.6 H (11.5-14.5) % Plt Count 211 (140-400) K/mcL MPV 10.0 (9.4-12.4) fL Immature Gran % 0.9 (0-4) % Seg Neutrophils % 84.9 % Lymphocytes % 7.0 % Monocytes % 4.8 % Eosinophils % 2.2 % Basophils % 0.2 % Neutrophils # 7.8 (1.6-8.9) K/mcL Lymphocytes # 0.6 (0.6-4.6) K/mcL Monocytes # 0.4 (0.0-1.3) K/mcL Eosinophils # 0.2 (0.0-0.6) K/mcL Basophils # 0.0 (0.0-0.2) K/mcL Sample Site R Brach ABG pH 7.17 L* (7.32-7.45) pH Units ABG pCO2 132 H* (35-45) mmHg ABG pO2 111 H (85-104) mmHg ABG HCO3 49 H (21-27) mEq/L ABG Total CO2 > 50 H (20-26) mEq/L ABG O2 Saturation 96 (95-98) % ABG Base Excess 15 H (-2 to 3) mEq/L Chase Test N/A O2 Delivery Device BiPAP Blood Gas Modality BiLevel Inspired O2 50.0 (1-15=lpm [id number]=%) PEEP 7 cm H2O Sodium (136-145) mEq/L Potassium (3.5-5.1) mEq/L Chloride (98-107) mEq/L Carbon Dioxide (23-29) mEq/L BUN (8-23) mg/dL Creatinine (0.60-1.20) mg/dL Est GFR ( Amer) (> 60) Est GFR (Non-Af Amer) (> 60) BUN/Creatinine Ratio (6-26) Glucose (70-105) mg/dL Calculated Osmolality (280-300) Lactic Acid (0.5-2.2) mmol/L Calcium (8.6-10.3) mg/dL Troponin I (< 0.04) ng/mL B-Natriuretic Peptide (Less than 100) pg/mL TSH (0.340-5.600) mcIU/mL Urine Color Yellow (Yellow) Urine Clarity Cloudy A (Clear) Urine pH 5.5 (5.0-8.0) pH Units Ur Specific [place] 1.016 (1.010-1.025) Urine Protein 100 H (Neg-Trace) mg/dL Urine Glucose (UA) Normal (Normal) mg/dL Urine Ketones Negative (Negative) mg/dL Urine Blood Large H (Negative) Urine Nitrite Negative (Negative) Urine Bilirubin Negative (Negative) Urine Urobilinogen Normal (Normal) mg/dL Ur Leukocyte Esterase Moderate H (Negative) Urine Microscopic RBC TNTC H (0-3) per hpf Urine Microscopic WBC 50-100 H (0-3) per hpf Ur Squamous Epith Cells Few (None-Few) per lpf Urine Bacteria Many H (None-Few) per hpf Hyaline Casts None Seen (None-Few) per lpf Ur Culture Indicated? YES A (NO) Person Notif of Jeff Carter 04/20/19 04/20/19 04/20/19 Range/Units 22:02 22:02 22:02 WBC (4.3-11.1) K/mcL RBC (3.82-4.97) M/mcL Hgb (11.5-15.4) g/dL Hct (35.3-44.9) % MCV (83.0-100.0) fL MCH (28.0-33.3) pg MCHC (31.6-35.5) g/dL RDW (11.5-14.5) % Plt Count (140-400) K/mcL MPV (9.4-12.4) fL Immature Gran % (0-4) % Seg Neutrophils % % Lymphocytes % % Monocytes % % Eosinophils % % Basophils % % Neutrophils # (1.6-8.9) K/mcL Lymphocytes # (0.6-4.6) K/mcL Monocytes # (0.0-1.3) K/mcL Eosinophils # (0.0-0.6) K/mcL Basophils # (0.0-0.2) K/mcL Sample Site ABG pH (7.32-7.45) pH Units ABG pCO2 (35-45) mmHg ABG pO2 (85-104) mmHg ABG HCO3 (21-27) mEq/L ABG Total CO2 (20-26) mEq/L ABG O2 Saturation (95-98) % ABG Base Excess (-2 to 3) mEq/L Chase Test O2 Delivery Device Blood Gas Modality Inspired O2 (1-15=lpm [id number]=%) PEEP cm H2O Sodium 143 (136-145) mEq/L Potassium 4.7 (3.5-5.1) mEq/L Chloride 99 (98-107) mEq/L Carbon Dioxide 40 H* (23-29) mEq/L BUN 17 (8-23) mg/dL Creatinine 0.76 (0.60-1.20) mg/dL Est GFR ( Amer) > 60 (> 60) Est GFR (Non-Af Amer) > 60 (> 60) BUN/Creatinine Ratio 22 (6-26) Glucose 169 H (70-105) mg/dL Calculated Osmolality 301 H (280-300) Lactic Acid 0.8 (0.5-2.2) mmol/L Calcium 9.4 (8.6-10.3) mg/dL Troponin I < 0.03 (< 0.04) ng/mL B-Natriuretic Peptide 431 H (Less than 100) pg/mL TSH (0.340-5.600) mcIU/mL Urine Color (Yellow) Urine Clarity (Clear) Urine pH (5.0-8.0) pH Units Ur Specific [place] (1.010-1.025) Urine Protein (Neg-Trace) mg/dL Urine Glucose (UA) (Normal) mg/dL Urine Ketones (Negative) mg/dL Urine Blood (Negative) Urine Nitrite (Negative) Urine Bilirubin (Negative) Urine Urobilinogen (Normal) mg/dL Ur Leukocyte Esterase (Negative) Urine Microscopic RBC (0-3) per hpf Urine Microscopic WBC (0-3) per hpf Ur Squamous Epith Cells (None-Few) per lpf Urine Bacteria (None-Few) per hpf Hyaline Casts (None-Few) per lpf Ur Culture Indicated? (NO) Person Notif of Crit 04/20/19 Range/Units 22:02 WBC (4.3-11.1) K/mcL RBC (3.82-4.97) M/mcL Hgb (11.5-15.4) g/dL Hct (35.3-44.9) % MCV (83.0-100.0) fL MCH (28.0-33.3) pg MCHC (31.6-35.5) g/dL RDW (11.5-14.5) % Plt Count (140-400) K/mcL MPV (9.4-12.4) fL Immature Gran % (0-4) % Seg Neutrophils % % Lymphocytes % % Monocytes % % Eosinophils % % Basophils % % Neutrophils # (1.6-8.9) K/mcL Lymphocytes # (0.6-4.6) K/mcL Monocytes # (0.0-1.3) K/mcL Eosinophils # (0.0-0.6) K/mcL Basophils # (0.0-0.2) K/mcL Sample Site ABG pH (7.32-7.45) pH Units ABG pCO2 (35-45) mmHg ABG pO2 (85-104) mmHg ABG HCO3 (21-27) mEq/L ABG Total CO2 (20-26) mEq/L ABG O2 Saturation (95-98) % ABG Base Excess (-2 to 3) mEq/L Chase Test O2 Delivery Device Blood Gas Modality Inspired O2 (1-15=lpm [id number]=%) PEEP cm H2O Sodium (136-145) mEq/L Potassium (3.5-5.1) mEq/L Chloride (98-107) mEq/L Carbon Dioxide (23-29) mEq/L BUN (8-23) mg/dL Creatinine (0.60-1.20) mg/dL Est GFR ( Amer) (> 60) Est GFR (Non-Af Amer) (> 60) BUN/Creatinine Ratio (6-26) Glucose (70-105) mg/dL Calculated Osmolality (280-300) Lactic Acid (0.5-2.2) mmol/L Calcium (8.6-10.3) mg/dL Troponin I (< 0.04) ng/mL B-Natriuretic Peptide (Less than 100) pg/mL TSH 7.795 H (0.340-5.600) mcIU/mL Urine Color (Yellow) Urine Clarity (Clear) Urine pH (5.0-8.0) pH Units Ur Specific [place] (1.010-1.025) Urine Protein (Neg-Trace) mg/dL Urine Glucose (UA) (Normal) mg/dL Urine Ketones (Negative) mg/dL Urine Blood (Negative) Urine Nitrite (Negative) Urine Bilirubin (Negative) Urine Urobilinogen (Normal) mg/dL Ur Leukocyte Esterase (Negative) Urine Microscopic RBC (0-3) per hpf Urine Microscopic WBC (0-3) per hpf Ur Squamous Epith Cells (None-Few) per lpf Urine Bacteria (None-Few) per hpf Hyaline Casts (None-Few) per lpf Ur Culture Indicated? (NO) Person Notif of Crit Attestation Statement - Attestation Attestation: I examined this patient and my medical decision-making was reviewed with the Resident Physician. I agree with the documented findings, disposition and treatment plan as described except to the extent set forth below. Patient 73-year-old female presents to the emergency department with chief co mplaint of shortness of breath and decreased responsiveness. The patient has prior history of COPD and has required BiPAP on many occasions per the EMS reports the patient has not been compliant with her BiPAP at home Physical exam patient is minimally responsive is in mild tachypnea very malodoro us with the strong smell of urine Medical decision management the patient will be started on BiPAP ABG showed the patient to be profoundly acidotic with a PCO2 of greater than 130. The plan will be to admit the patient to the hospitalist service
[2019-04-20] MEDS ORDERED: cefTRIAXone 1,000 MG in Water for inj. (sterile) 10 ML IVP ONE (22:26)
[2019-04-20 22:41] LABS: BUN/Creatinine Ratio 22 (6-26); Blood Urea Nitrogen 17 mg/dL (8-23); Calcium 9.4 mg/dL (8.6-10.3); Carbon Dioxide 40 mEq/L (23-29); Chloride 99 mEq/L (98-107); Glucose 169 mg/dL (70-105); Osmolality,Calculated 301 (280-300); Potassium 4.7 mEq/L (3.5-5.1); Sodium 143 mEq/L (136-145); Troponin I < 0.03 ng/mL (< 0.04); eGFR For African Americans > 60 (> 60); eGFR For Non-African Americans > 60 (> 60)
[2019-04-20] MEDS ORDERED: 0.9 % Sodium Chloride 500 ML IVC ONE (23:09)
[2019-04-21] MEDS ORDERED: Albuterol 2.5 MG/3 ML NEBULIZER IH PRN (02:54)
[2019-04-21] MEDS ORDERED: Naloxone 0.4 MG/ML INJ IVP PRN (03:00)
[2019-04-21] MEDS ORDERED: *HR* Dextrose 50 % in Water (Syg) 50 ML SYRINGE IVP PRN (03:03)
[2019-04-21] MEDS ORDERED: D5% in Water 1,000 ML IVC PRN (03:03)
[2019-04-21] MEDS ORDERED: Dextrose Gel 15 GM/37.5 ML TUBE PO PRN ×2 (03:03)
--- NOTE | 2019-04-21 03:33 | Internal Med History&Physical ---
Date of Encounter: 04/21/19 Time of Encounter: 03:30 Internal Medicine - H&P: HPI Chief complaint: Somnolence, SOB Admitted From: Emergency Dept Plans for Post Hospital Care: Transfer [facility] Care History of present illness: Ms. Jhaveri is a 73 year old female with history of severe COPD, DM2, who presented to the ED today with somnolence and shortness of breath. She was living at a detention [facility] facility but had to go home over this past week because of financial issues. Her family noticed that she was sleepier and had altered mentation so she was brought to the ED for evaluation. In the ED she was reportedly somnolent, and ABG showed pH 7.17 with pCO2 of 132. She was placed on BIPAP and her mental status is improved on arrival to the ICU, however she is still unable to provide much history of what happened over the past several days. She denies any pain currently. Past Med Surg Social Fam HX - Past Medical History Medical history: COPD, CVA, diabetes, hyperlipidemia, hypertension, pulmonary embolus, thyroid disease, TIA, other Additional medical history: CVA (2015) Psychiatric history: anxiety, depression - Past Surgical History Surgical History: cholecystectomy Additional surgical history: Throat biopsy, back surgery - Social History Smoking Status: Current every day smoker Smokeless Tobacco Status: No Alcohol use: none Drug use: none - Family History Father Family Member Ethnicity: Non- Living Status: Hx Family Cardiac Disorders: Yes (Stroke,) Hx Family Respiratory Disorders: Yes Hx Family Endocrine Disorder: Yes (Diabetes) Mother Adopted: No Living Status: Hx Family Cardiac Disorders: Yes Hx Family Respiratory Disorders: Yes Hx Family Cancer: Yes Hx Family GI Disorders: No Hx Family Endocrine Disorder: No Hx Family Neuromuscular Disorders: No Hx Family Neurologic Disorders: No Hx Family HEENT Disorders: No Hx Family Autoimmune Disorders: No Internal Medicine - H&P: Meds Atenolol [Tenormin] 25 mg PO DAILY 11/16/16 [History] Folic Acid 1 mg PO DAILY 11/16/16 [History] Lovastatin [Mevacor] 20 mg PO HS 11/16/16 [History] Potassium Chloride [Klor-Con 10] 10 meq PO BID 11/16/16 [History] Alendronate Sodium [Fosamax] 70 mg PO TU 05/05/17 [History] Escitalopram [Lexapro] 10 mg PO DAILY 08/31/17 [History] Levothyroxine Sodium [Levo-T] 200 mcg PO DAILY 01/02/18 [History] Losartan Potassium [Cozaar] 100 mg PO DAILY 01/02/18 [History] Albuterol Neb [Proventil Neb] 2.5 mg IH Q4H PRN 10/13/18 [History] Docusate [Colace] 100 mg PO BID PRN 10/13/18 [History] Linagliptin [Tradjenta] 5 mg PO DAILY 10/13/18 [History] Aspirin [Adult Aspirin] 81 mg PO DAILY 12/08/18 [History] Acetaminophen [Tylenol] 650 mg PO Q4H PRN 02/02/19 [History] Albuterol Sulfate [Proventil Inhaler] 2 puff IH Q4H PRN 02/02/19 [History] Apixaban [Eliquis] 5 mg PO BID 02/02/19 [History] Ergocalciferol (VITAMIN D2) [Vitamin D2] 50,000 unit PO TU 02/02/19 [History] Fluticasone/Umeclidin/Vilanter [Trelegy Ellipta 100-62.5-25] 1 puff IH DAILY 02/02/19 [History] Furosemide [Lasix] 40 mg PO QAM 02/02/19 [History] Insulin LISPRO [HumaLOG] 0 units SQ ACHS 02/02/19 [History] Ipratropium/Albuterol Sulfate [Iprat-Albut 0.5-3(2.5) mg/3 ml] 3 ml IH Q4H PRN 02/02/19 [History] metFORMIN [Glucophage] 1,500 mg PO QPM 02/02/19 [History] amLODIPine [Norvasc] 5 mg PO DAILY #60 tablet 02/05/19 [Rx] Gabapentin [Neurontin] 300 mg PO HS 04/20/19 [History] Methotrexate [Otrexup] 12.5 mg PO NEGRETE 04/20/19 [History] Oxymetazoline [Afrin] 2 spray NS Q12HR PRN 04/20/19 [History] cloNIDine HCl [CloNIDine HCl] 0.1 mg PO BID 04/20/19 [History] Allergy/AdvReac Type Severity Reaction Status Date / Time No Known Allergies Allergy Verified 02/02/19 09:29 ROS unobtainable: due to mental status All Systems PM: A 10-system review of systems was performed and is negative for pertinent findings except as documented above in the HPI. - Constitutional Vitals: Temp Pulse Resp BP Pulse Ox 97.6 F 56 20 146/71 94 04/21/19 01:41 04/21/19 03:00 04/21/19 03:00 04/21/19 03:00 04/21/19 03:00 General appearance: Present: A&O X 3, no acute distress Exam: Patient sleeping with BIPAP in place, but wakes easily with verbal stimulus - Head Head exam: Present: atraumatic - Eye Eye exam: Present: EOMI, sclera anicteric - ENT ENT exam: Present: mucous membranes moist - Neck Neck exam general surgery: Present: supple - Respiratory Respiratory exam: Present: decreased breath sounds, wheezes - Cardiovascular Cardiovascular exam: Present: RRR. Absent: diastolic murmur, gallop, rubs, systolic murmur - GI/Abdominal GI/Abdominal exam: Present: normal bowel sounds, soft. Absent: distended, tenderness - Neurological Exam Neurological exam: Present: no focal deficits - Skin Skin exam: Absent: rash Internal Med - H&P Results - Labs CBC & Chem 7: 04/20/19 22:02 04/20/19 22:02 Labs: Short CBC 04/20/19 Range/Units 22:02 WBC 9.2 (4.3-11.1) K/mcL Hgb 11.2 L (11.5-15.4) g/dL Hct 37.6 (35.3-44.9) % Plt Count 211 (140-400) K/mcL Neutrophils # 7.8 (1.6-8.9) K/mcL BMP 04/20/19 22:02 Sodium 143 Potassium 4.7 Chloride 99 Carbon Dioxide 40 H* BUN 17 Creatinine 0.76 Glucose 169 H Calcium 9.4 Cardiac Enzymes 04/20/19 Range/Units 22:02 Troponin I < 0.03 (< 0.04) ng/mL Urine 04/20/19 Range/Units 21:29 Urine Color Yellow (Yellow) Urine Clarity Cloudy A (Clear) Urine pH 5.5 (5.0-8.0) pH Units Ur Specific [place] 1.016 (1.010-1.025) Urine Protein 100 H (Neg-Trace) mg/dL Urine Glucose (UA) Normal (Normal) mg/dL - ABG Interpretation ABG results: 04/20/19 21:50 ABG pH 7.17 L* ABG pCO2 132 H* ABG pO2 111 H ABG HCO3 49 H ABG Total CO2 > 50 H ABG O2 Saturation 96 ABG Base Excess 15 H - Impressions ITS Impressions Head CT 04/20/19 21:15 IMPRESSION: No acute intracranial abnormality. D/ / Gregoria Cabello Cha, MD / Gregoria Cabello Cha, MD Interpreting Provider: Gregoria Cabello Cha, MD Chest X-Ray 04/20/19 21:33 IMPRESSION: Emphysema with COPD and possible trace left effusion versus pleural reflection in the setting of hyperinflation. Difficult to exclude mild interstitial edema. Enlarged main pulmonary arteries suggest underlying pulmonary hypertension. D/ / Johnathon Song / Johnathon Song Interpreting Provider: Johnathon Song - Assessment and Plan (1) Acute exacerbation of chronic obstructive airways disease Current Visit: No Status: Acute Assessment and plan: In setting of severe COPD. - Received 125mg IV solumedrol given in ED, will continue with 40IV solumedrol Q6H - PRN and scheduled nebs - BIPAP in place, patient tolerating well (2) Acute respiratory failure with hypoxia and hypercapnia Current Visit: No Status: Acute Assessment and plan: Acute respiratory acidosis secondary to COPD exacerbation. - Continue BIPAP - Patient clinically improving, monitor closely in ICU (3) Altered mental status Current Visit: No Status: Acute Assessment and plan: Secondary to hypercarbia, UTI. - Treat COPD exacerbation, continue NIPPV - Treat UTI Qualifiers: Altered mental status type: somnolence Qualified Code(s): R40.0 - Somnolence (4) UTI (urinary tract infection) Current Visit: Yes Status: Acute Assessment and plan: Received Ceftriaxone in the ED, will continue. Urine and blood cultures pending Qualifiers: Urinary tract infection type: acute cystitis Hematuria presence: with hematuria Qualified Code(s): N30.01 - Acute cystitis with hematuria (5) Hypothyroidism Current Visit: No Status: Chronic Assessment and plan: Continue home levothyroxine Qualifiers: Hypothyroidism type: unspecified Qualified Code(s): E03.9 - Hypothyroidism, unspecified (6) Hypertension Current Visit: No Status: Chronic Assessment and plan: BP stable, continue home meds Qualifiers: Hypertension type: essential hypertension Qualified Code(s): I10 - Essential (primary) hypertension - Time Spent With Patient Total time spent is greater than 50% in coordination of care (as documented) at patient's floor/unit and/or counseling patient: Greater than 35 minutes
[2019-04-21] MEDS: Ipratropium/Albuterol Neb 3 ML IH SCH ×4 (03:42→22:10)
[2019-04-21 03:46] LABS: Basophils % 0.1 %; Eosinophils % 0.4 %; Hematocrit 34.4 % (35.3-44.9); Hemoglobin 10.5 g/dL (11.5-15.4); Immature Granulocytes % 0.5 % (0-4); Lymphocytes # 0.4 K/mcL (0.6-4.6); Lymphocytes % 3.8 %; Mean Corpuscular HGB Conc 30.5 g/dL (31.6-35.5); Mean Corpuscular Hemoglobin 29.9 pg (28.0-33.3); Mean Platelet Volume 9.7 fL (9.4-12.4); Monocytes # 0.2 K/mcL (0.0-1.3); Monocytes % 1.7 %; Neutrophils # 9.3 K/mcL (1.6-8.9); Platelet Count 185 K/mcL (140-400); Red Blood Count 3.51 M/mcL (3.82-4.97); Red Cell Distribution Width 14.6 % (11.5-14.5); Segmented Neutrophils % 93.5 %
[2019-04-21 04:10] LABS: Alanine Aminotransferase < 3 Units/L (7-52); Albumin 4.2 g/dL (3.5-5.7); Albumin/Globulin Ratio 1.7 (1.1-2.2); Alkaline Phosphatase 55 Units/L (34-104); Aspartate Amino Transferase 9 Units/L (13-39); BUN/Creatinine Ratio 25 (6-26); Bilirubin,Total 0.2 mg/dL (0.3-1.0); Blood Urea Nitrogen 20 mg/dL (8-23); Calcium 9.2 mg/dL (8.6-10.3); Carbon Dioxide 39 mEq/L (23-29); Chloride 99 mEq/L (98-107); Globulin 2.5 g/dL (2.4-3.5); Glucose 174 mg/dL (70-105); Osmolality,Calculated 303 (280-300); Potassium 4.8 mEq/L (3.5-5.1); Sodium 143 mEq/L (136-145); Total Protein 6.7 g/dL (6.4-8.9); eGFR For African Americans > 60 (> 60); eGFR For Non-African Americans > 60 (> 60)
[2019-04-21] MEDS: MethylPREDNISolone 40 MG/ML VIAL IVP SCH ×3 (05:56→16:56)
--- NOTE | 2019-04-21 06:17 | Pulmonology Progress Note ---
Date of Encounter: 04/21/19 Subjective Interval history: Mrs. Jhaveri is a 73-year-old female who came to the ER on 04/20 for altered mental status and respiratory distress. Past medical history per EMR: COPD on home oxygen, CHF, prior CVA, hypothyroidism, diabetes mellitus, pulmonary embolism on apixaban, hypertension She was brought to the ED by her family and was not responsive initially. Vital signs significant for temp 96.6, respiratory rate 30, blood pressure 183/82. Labs: CBC and BMP relatively unremarkable ABG showed pH of 7.17 with PCO2 132. HCO3 49 TSH 7.795 from 1.082 on 02/02/19 UA showing moderate leukocyte esterase, too many to count RBCs, 50-100 WBCs, many bacteria. CXR showed emphysema with COPD and possible trace left effusion versus pleural reflection in the setting of hyperinflation. Could not exclude mild interstitial edema. Enlarged main pulmonary arteries that may suggest pulmonary hypertension. CT head negative. Interventions: 1/2 L fluid bolus. She was placed on BiPAP. Bear hugger for hypothermia. Was given ceftriaxone for UTI. IV Solu-Medrol. Last hospital stay from 02/01/19-02/05/19 for respiratory failure secondary to pneumonia treated with Levaquin and furosemide for pulmonary edema. Today: Nursing reports that patient has a history of this type of event where she is brought to the hospital after respiratory distress at home. Often involves element of noncompliance. The patient was alert and oriented when she arrived to the ICU from the ED. They tried nasal cannula therapy but the patient desatted to 86% so the BiPAP was placed back on. When asked how she feels she said that she does not feel anything. She has some pain in her right arm that has been chronic. She remembers some of the incident that brought her in and said that she could not breathe and agrees that that was the main thing. She feels the same as yesterday. A/P # Acute respiratory failure with hypoxia and hypercapnia Failed BiPAP therapy at home Initial ABG showed respiratory acidosis with metabolic acidosis Aa gradient 183 -Currently on BiPAP and satting well -Steroids, DuoNeb's, albuterol when necessary -Continue to monitor on BiPAP and trial nasal cannula therapy #metabolic acidosis Lactic acid WNL #UTI Suspected Moderate leukocyte esterase with RBCs and WBCs and bacteria -Culture 04/20/19 pending -Ceftriaxone day 1 #Hypothyroidism Chronic TSH elevated -Home dose levothyroxine Objective PUL Vital signs: Last Vital Signs Temp 96.7 F L 04/21/19 04:00 Pulse 73 04/21/19 06:00 Resp 30 04/21/19 06:00 BP 123/81 04/21/19 06:00 Pulse Ox 95 04/21/19 06:00 Results - Laboratory Findings CBC and BMP: 04/21/19 03:35 04/21/19 03:35 ABG ABG pH 7.17 pH Units (7.32-7.45) L* 04/20/19 21:50 ABG pCO2 132 mmHg (35-45) H* 04/20/19 21:50 ABG pO2 111 mmHg (85-104) H 04/20/19 21:50 ABG O2 Saturation 96 % (95-98) 04/20/19 21:50 Abnormal lab findings: Abnormal lab results RBC 3.51 M/mcL (3.82-4.97) L 04/21/19 03:35 Hgb 10.5 g/dL (11.5-15.4) L 04/21/19 03:35 Hct 34.4 % (35.3-44.9) L 04/21/19 03:35 MCHC 30.5 g/dL (31.6-35.5) L 04/21/19 03:35 RDW 14.6 % (11.5-14.5) H 04/21/19 03:35 Neutrophils # 9.3 K/mcL (1.6-8.9) H 04/21/19 03:35 Lymphocytes # 0.4 K/mcL (0.6-4.6) L 04/21/19 03:35 ABG pH 7.17 pH Units (7.32-7.45) L* 04/20/19 21:50 ABG pCO2 132 mmHg (35-45) H* 04/20/19 21:50 ABG pO2 111 mmHg (85-104) H 04/20/19 21:50 ABG HCO3 49 mEq/L (21-27) H 04/20/19 21:50 ABG Total CO2 > 50 mEq/L (20-26) H 04/20/19 21:50 ABG Base Excess 15 mEq/L (-2 to 3) H 04/20/19 21:50 Carbon Dioxide 39 mEq/L (23-29) H 04/21/19 03:35 Glucose 174 mg/dL (70-105) H 04/21/19 03:35 POC Glucose 148 mg/dL (70-99) H 04/21/19 01:37 Calculated Osmolality 303 (280-300) H 04/21/19 03:35 Total Bilirubin 0.2 mg/dL (0.3-1.0) L 04/21/19 03:35 AST 9 Units/L (13-39) L 04/21/19 03:35 ALT < 3 Units/L (7-52) L 04/21/19 03:35 B-Natriuretic Peptide 431 pg/mL (Less than 100) H 04/20/19 22:02 TSH 7.795 mcIU/mL (0.340-5.600) H 04/20/19 22:02 Urine Clarity Cloudy (Clear) A 04/20/19 21:29 Urine Protein 100 mg/dL (Neg-Trace) H 04/20/19 21:29 Urine Blood Large (Negative) H 04/20/19 21:29 Ur Leukocyte Esterase Moderate (Negative) H 04/20/19 21:29 Urine Microscopic RBC TNTC per hpf (0-3) H 04/20/19 21:29 Urine Microscopic WBC 50-100 per hpf (0-3) H 04/20/19 21:29 Urine Bacteria Many per hpf (None-Few) H 04/20/19 21:29 Ur Culture Indicated? YES (NO) A 04/20/19 21:29 - Microbiology Findings Microbiology Findings: Microbiology, Last 48 Hours 04/20/19 21:29 Urine Culture - Preliminary Urine,Catheterized (Straight) Culture is incubating. 04/20/19 22:02 Blood Culture - Preliminary Peripheral Venipuncture Culture is incubating and being continuously monitored for growth. Final report to follow. 04/20/19 22:02 Blood Culture - Preliminary Peripheral Venipuncture Culture is incubating and being continuously monitored for growth. Final report to follow. - Clinical Findings Intake & Output: Intake & Output 04/20/19 04/20/19 04/21/19 15:59 23:59 07:59 Intake Total 500 / 500 Output Total 200 / 200 Balance 300 / 300 Weight 72.212 kg 68.8 kg Consult Discharge Plan - Plan Referrals: NONE,PCP [Primary Care Provider] -
--- NOTE | 2019-04-21 07:48 | Pulmonology Consult Note ---
<Sumit Mills - Last Filed: 04/21/19 08:12> Date of Encounter: 04/21/19 Time of Encounter: 07:48 Assessment and Plan (1) Acute on chronic respiratory failure with hypoxia and hypercapnia Current Visit: Yes Status: Acute (2) COPD exacerbation Current Visit: Yes Status: Acute (3) Hypothyroidism Current Visit: Yes Status: Acute Qualifiers: Hypothyroidism type: unspecified Qualified Code(s): E03.9 - Hypothyroidism, unspecified (4) UTI (urinary tract infection) Current Visit: Yes Status: Acute Qualifiers: Urinary tract infection type: acute cystitis Hematuria presence: with hematuria Qualified Code(s): N30.01 - Acute cystitis with hematuria History of Present Illness Consult date: 04/21/19 History of present illness: Mrs. Jhaveri is a 73-year-old female who came to the ER on 04/20 for altered mental status and respiratory distress. Past medical history per EMR: COPD on home oxygen, CHF, prior CVA, hypothyroidism, diabetes mellitus, pulmonary embolism on apixaban, hypertension She was brought to the ED by her family and was not responsive initially. Vital signs significant for temp 96.6, respiratory rate 30, blood pressure 183/82. Labs: CBC and BMP relatively unremarkable ABG showed pH of 7.17 with PCO2 132. HCO3 49 TSH 7.795 from 1.082 on 02/02/19 UA showing moderate leukocyte esterase, too many to count RBCs, 50-100 WBCs, many bacteria. CXR showed emphysema with COPD and possible trace left effusion versus pleural reflection in the setting of hyperinflation. Could not exclude mild interstitial edema. Enlarged main pulmonary arteries that may suggest pulmonary hypertension. CT head negative. Interventions: 1/2 L fluid bolus. She was placed on BiPAP. Bear hugger for hypothermia. Was given ceftriaxone for UTI. IV Solu-Medrol. Last hospital stay from 02/01/19-02/05/19 for respiratory failure secondary to pneumonia treated with Levaquin and furosemide for pulmonary edema. Today: Nursing reports that patient has a history of this type of event where she is brought to the hospital after respiratory distress at home. Often involves element of noncompliance. The patient was alert and oriented when she arrived to the ICU from the ED. They tried nasal cannula therapy but the patient desatted to 86% so the BiPAP was placed back on. When asked how she feels she said that she does not feel anything. She has some pain in her right arm that has been chronic. She remembers some of the incident that brought her in and said that she could not breathe and agrees that that was the main thing. She feels the same as yesterday. A/P # Acute respiratory failure with hypoxia and hypercapnia secondary to COPD exacerbation Failed BiPAP therapy at home Initial ABG showed respiratory acidosis with metabolic acidosis initial A-a gradient 183 -Currently on BiPAP and satting well -Steroids, DuoNeb's, albuterol when necessary -Continue to monitor on BiPAP and trial nasal cannula therapy -repeat ABG pending #UTI Suspected Moderate leukocyte esterase with RBCs and WBCs and bacteria -Culture 04/20/19 pending -Ceftriaxone day 1 #Hypothyroidism Chronic TSH elevated -Home dose levothyroxine Past Med Surg Social Fam HX - Past Medical History Medical history: COPD, CVA, diabetes, hyperlipidemia, hypertension, pulmonary embolus, thyroid disease, TIA, other Additional medical history: CVA (2014) Psychiatric history: anxiety, depression - Past Surgical History Surgical History: cholecystectomy Additional surgical history: Throat biopsy, back surgery - Social History Smoking Status: Current every day smoker Smokeless Tobacco Status: No Alcohol use: none Drug use: none - Family History Father Family Member Ethnicity: Non- Living Status: Hx Family Cardiac Disorders: Yes (Stroke,) Hx Family Respiratory Disorders: Yes Hx Family Endocrine Disorder: Yes (Diabetes) Mother Adopted: No Living Status: Hx Family Cardiac Disorders: Yes Hx Family Respiratory Disorders: Yes Hx Family Cancer: Yes Hx Family GI Disorders: No Hx Family Endocrine Disorder: No Hx Family Neuromuscular Disorders: No Hx Family Neurologic Disorders: No Hx Family HEENT Disorders: No Hx Family Autoimmune Disorders: No Medications and Allergies Atenolol [Tenormin] 25 mg PO DAILY 11/16/16 [History] Folic Acid 1 mg PO DAILY 11/16/16 [History] Lovastatin [Mevacor] 20 mg PO HS 11/16/16 [History] Potassium Chloride [Klor-Con 10] 10 meq PO BID 11/16/16 [History] Alendronate Sodium [Fosamax] 70 mg PO TU 12/31/16 [History] Escitalopram [Lexapro] 10 mg PO DAILY 08/31/17 [History] Levothyroxine Sodium [Levo-T] 200 mcg PO DAILY 01/02/18 [History] Losartan Potassium [Cozaar] 100 mg PO DAILY 01/02/18 [History] Albuterol Neb [Proventil Neb] 2.5 mg IH Q4H PRN 10/13/18 [History] Docusate [Colace] 100 mg PO BID PRN 10/13/18 [History] Linagliptin [Tradjenta] 5 mg PO DAILY 10/13/18 [History] Aspirin [Adult Aspirin] 81 mg PO DAILY 12/08/18 [History] Acetaminophen [Tylenol] 650 mg PO Q4H PRN 02/02/19 [History] Albuterol Sulfate [Proventil Inhaler] 2 puff IH Q4H PRN 02/02/19 [History] Apixaban [Eliquis] 5 mg PO BID 02/02/19 [History] Ergocalciferol (VITAMIN D2) [Vitamin D2] 50,000 unit PO TU 02/02/19 [History] Fluticasone/Umeclidin/Vilanter [Trelegy Ellipta 100-62.5-25] 1 puff IH DAILY 02/02/19 [History] Furosemide [Lasix] 40 mg PO QAM 02/02/19 [History] Insulin LISPRO [HumaLOG] 0 units SQ ACHS 02/02/19 [History] Ipratropium/Albuterol Sulfate [Iprat-Albut 0.5-3(2.5) mg/3 ml] 3 ml IH Q4H PRN 02/02/19 [History] metFORMIN [Glucophage] 1,500 mg PO QPM 02/02/19 [History] amLODIPine [Norvasc] 5 mg PO DAILY #60 tablet 02/05/19 [Rx] Gabapentin [Neurontin] 300 mg PO HS 04/20/19 [History] Methotrexate [Otrexup] 12.5 mg PO NEGRETE 04/20/19 [History] Oxymetazoline [Afrin] 2 spray NS Q12HR PRN 04/20/19 [History] cloNIDine HCl [CloNIDine HCl] 0.1 mg PO BID 04/20/19 [History] Allergy/AdvReac Type Severity Reaction Status Date / Time No Known Allergies Allergy Verified 02/02/19 09:29 All Systems: The remainder of the systems were reviewed and are negative Review of Systems: admits: Chronic right upper extremity pain. Cold intolerance. thirst Denies: Cough at home. Current chest pain. Stomach pains at home. Pain or burning with urination Physical Examination Vital Signs: Vital Signs, Last 4 Hours Temp Pulse Resp BP Pulse Ox 04/21/19 07:31 98.5 F 04/21/19 06:00 73 30 123/81 95 04/21/19 05:00 66 28 106/85 89 04/21/19 04:00 96.7 F L 65 24 160/83 100 Gen.: Elderly female. Some discomfort Skin: Venous stasis changes bilateral lower extremities Eyes: Moist. Anicteric Cardiac: Only tricuspid post heard reliably. Regular rate and rhythm. No murm urs gallops rubs. Sinus rhythm on monitor Respiratory: Bilateral basilar and middle lobar posterior wheezes GI: Nonobese. Not diffusely tender Extremities: Capillary refill less than 2 seconds bilateral upper extremities. Bilateral lower extremity edema Neuro: Alert and oriented to person and month. She does not know that today is the and thought it was the nd. She did not know the year. She asked which hospital she was in. Answers questions appropriately. Some agitation from being examined while she feels cold. Results - Laboratory Findings CBC and BMP: 04/21/19 03:35 04/21/19 03:35 ABG ABG pH 7.17 pH Units (7.32-7.45) L* 04/20/19 21:50 ABG pCO2 132 mmHg (35-45) H* 04/20/19 21:50 ABG pO2 111 mmHg (85-104) H 04/20/19 21:50 ABG O2 Saturation 96 % (95-98) 04/20/19 21:50 Abnormal lab findings: Abnormal lab results RBC 3.51 M/mcL (3.82-4.97) L 04/21/19 03:35 Hgb 10.5 g/dL (11.5-15.4) L 04/21/19 03:35 Hct 34.4 % (35.3-44.9) L 04/21/19 03:35 MCHC 30.5 g/dL (31.6-35.5) L 04/21/19 03:35 RDW 14.6 % (11.5-14.5) H 04/21/19 03:35 Neutrophils # 9.3 K/mcL (1.6-8.9) H 04/21/19 03:35 Lymphocytes # 0.4 K/mcL (0.6-4.6) L 04/21/19 03:35 ABG pH 7.17 pH Units (7.32-7.45) L* 04/20/19 21:50 ABG pCO2 132 mmHg (35-45) H* 04/20/19 21:50 ABG pO2 111 mmHg (85-104) H 04/20/19 21:50 ABG HCO3 49 mEq/L (21-27) H 04/20/19 21:50 ABG Total CO2 > 50 mEq/L (20-26) H 04/20/19 21:50 ABG Base Excess 15 mEq/L (-2 to 3) H 04/20/19 21:50 Carbon Dioxide 39 mEq/L (23-29) H 04/21/19 03:35 Glucose 174 mg/dL (70-105) H 04/21/19 03:35 POC Glucose 148 mg/dL (70-99) H 04/21/19 01:37 Calculated Osmolality 303 (280-300) H 04/21/19 03:35 Total Bilirubin 0.2 mg/dL (0.3-1.0) L 04/21/19 03:35 AST 9 Units/L (13-39) L 04/21/19 03:35 ALT < 3 Units/L (7-52) L 04/21/19 03:35 B-Natriuretic Peptide 431 pg/mL (Less than 100) H 04/20/19 22:02 TSH 7.795 mcIU/mL (0.340-5.600) H 04/20/19 22:02 Urine Clarity Cloudy (Clear) A 04/20/19 21:29 Urine Protein 100 mg/dL (Neg-Trace) H 04/20/19 21:29 Urine Blood Large (Negative) H 04/20/19 21:29 Ur Leukocyte Esterase Moderate (Negative) H 04/20/19 21:29 Urine Microscopic RBC TNTC per hpf (0-3) H 04/20/19 21:29 Urine Microscopic WBC 50-100 per hpf (0-3) H 04/20/19 21:29 Urine Bacteria Many per hpf (None-Few) H 04/20/19 21:29 Ur Culture Indicated? YES (NO) A 04/20/19 21:29 - Microbiology Findings Microbiology Findings: Microbiology, Last 48 Hours 04/20/19 21:29 Urine Culture - Preliminary Urine,Catheterized (Straight) Culture is incubating. 04/20/19 22:02 Blood Culture - Preliminary Peripheral Venipuncture Culture is incubating and being continuously monitored for growth. Final report to follow. 04/20/19 22:02 Blood Culture - Preliminary Peripheral Venipuncture Culture is incubating and being continuously monitored for growth. Final report to follow. - Clinical Findings Intake & Output: Intake & Output 04/20/19 04/20/19 04/21/19 15:59 23:59 07:59 Intake Total 500 / 500 Output Total 275 / 275 Balance 225 / 225 Weight 72.212 kg 68.8 kg Consult Discharge Plan - Plan Referrals: NONE,PCP [Primary Care Provider] - <Felipe Putnam - Last Filed: 04/21/19 08:58> Date of Encounter: 04/21/19 All Systems: The remainder of the systems were reviewed and are negative Physical Examination Vital Signs: Vital Signs, Last 4 Hours Temp Pulse Resp BP Pulse Ox 04/21/19 07:49 72 16 176/89 90 04/21/19 07:31 98.5 F 04/21/19 07:00 72 28 173/135 93 04/21/19 06:00 73 30 123/81 95 04/21/19 05:00 66 28 106/85 89 Results - Laboratory Findings CBC and BMP: 04/21/19 03:35 04/21/19 03:35 ABG ABG pH 7.17 pH Units (7.32-7.45) L* 04/20/19 21:50 ABG pCO2 132 mmHg (35-45) H* 04/20/19 21:50 ABG pO2 111 mmHg (85-104) H 04/20/19 21:50 ABG O2 Saturation 96 % (95-98) 04/20/19 21:50 Abnormal lab findings: Abnormal lab results RBC 3.51 M/mcL (3.82-4.97) L 04/21/19 03:35 Hgb 10.5 g/dL (11.5-15.4) L 04/21/19 03:35 Hct 34.4 % (35.3-44.9) L 04/21/19 03:35 MCHC 30.5 g/dL (31.6-35.5) L 04/21/19 03:35 RDW 14.6 % (11.5-14.5) H 04/21/19 03:35 Neutrophils # 9.3 K/mcL (1.6-8.9) H 04/21/19 03:35 Lymphocytes # 0.4 K/mcL (0.6-4.6) L 04/21/19 03:35 ABG pH 7.17 pH Units (7.32-7.45) L* 04/20/19 21:50 ABG pCO2 132 mmHg (35-45) H* 04/20/19 21:50 ABG pO2 111 mmHg (85-104) H 04/20/19 21:50 ABG HCO3 49 mEq/L (21-27) H 04/20/19 21:50 ABG Total CO2 > 50 mEq/L (20-26) H 04/20/19 21:50 ABG Base Excess 15 mEq/L (-2 to 3) H 04/20/19 21:50 Carbon Dioxide 39 mEq/L (23-29) H 04/21/19 03:35 Glucose 174 mg/dL (70-105) H 04/21/19 03:35 POC Glucose 148 mg/dL (70-99) H 04/21/19 01:37 Calculated Osmolality 303 (280-300) H 04/21/19 03:35 Total Bilirubin 0.2 mg/dL (0.3-1.0) L 04/21/19 03:35 AST 9 Units/L (13-39) L 04/21/19 03:35 ALT < 3 Units/L (7-52) L 04/21/19 03:35 B-Natriuretic Peptide 431 pg/mL (Less than 100) H 04/20/19 22:02 TSH 7.795 mcIU/mL (0.340-5.600) H 04/20/19 22:02 Urine Clarity Cloudy (Clear) A 04/20/19 21:29 Urine Protein 100 mg/dL (Neg-Trace) H 04/20/19 21:29 Urine Blood Large (Negative) H 04/20/19 21:29 Ur Leukocyte Esterase Moderate (Negative) H 04/20/19 21:29 Urine Microscopic RBC TNTC per hpf (0-3) H 04/20/19 21:29 Urine Microscopic WBC 50-100 per hpf (0-3) H 04/20/19 21:29 Urine Bacteria Many per hpf (None-Few) H 04/20/19 21:29 Ur Culture Indicated? YES (NO) A 04/20/19 21:29 - Microbiology Findings Microbiology Findings: Microbiology, Last 48 Hours 04/20/19 21:29 Urine Culture - Preliminary Urine,Catheterized (Straight) Culture is incubating. 04/20/19 22:02 Blood Culture - Preliminary Peripheral Venipuncture Culture is incubating and being continuously monitored for growth. Final report to follow. 04/20/19 22:02 Blood Culture - Preliminary Peripheral Venipuncture Culture is incubating and being continuously monitored for growth. Final report to follow. - Clinical Findings Intake & Output: Intake & Output 04/20/19 04/21/19 04/21/19 23:59 07:59 15:59 Intake Total 500 / 500 Output Total 275 / 275 Balance 225 / 225 Weight 72.212 kg 68.8 kg - Attending Attestation I examined this patient and my medical decision-making was reviewed with the Resident Physician. I agree with the documented findings, disposition and treat ment plan as described except to the extent set forth below. Patient seen and examined. Labs, radiology, chart personally reviewed. 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 Patient has very advanced COPD and palliative care is very appropriate for her. This was done in the past and will need to consult them again. Patient is high risk of her condition could deteriorate and she may need invasive mechanical ventilation which might be difficult to get patient off. ABG was done and it seems to be VBG and there is evidence of hypercapnia has improved some. Cardiovascular: Some hypertension could be related to that she is sometimes not comfortable on BiPAP. GI: Nutrition per dietary and GI prophylaxis per routine. Because she is on BiPAP with keep nothing by mouth especially the risk of she might need to be intubated. Heme: DVT prophylaxis per routine ID: Continue antibiotics and plan to de-escalation Renal; urine out put and renal function reviewed Endorcine: blood glucose is monitored Lines: all lines checked and no evidence of infections Skin: skin care to prevent pressure ulcers per nursing routine care Dispo: ICU Code: Full. Prognosis. Overall poor I spent 35 min of Critical Care time with this patient. It involved decision making of high complexity to assess, manipulate, and support vital organ system failure and/or to prevent further life threatening deterioration of the patient's condition. The time involved in the performance of separately reportable procedures was not counted toward critical care time.
--- NOTE | 2019-04-21 08:07 | Electrocardiograph Report ---
[place] [id number] Test Date: 2019-04-20 Pat Name: Lilly Jhaveri Department: EXAM2 Room: 03 Gender: F Histology Manager: : [id number] Requested By: Jing Carter Order Number: [id number] Reading MD: You Steele Measurements Intervals Wirtz Rate: 62 P: -4 GA: 143 QRS: -18 QRSD: 104 T: 47 QT: 463 QTc: 471 Interpretive Statements Sinus rhythm Borderline left axis deviation Anteroseptal infarct, old Electronically Signed On 04-21-2019 8:05:49 EDT by You Steele
[2019-04-21] MEDS ORDERED: NON-FORMULARY MEDICATION 1 EACH EACH (Fluticasone/Umeclidin/Vilanter [Trelegy Ellipta 100- IH SCH (09:00)
[2019-04-21] MEDS: Nicotine 21 MG PATCH.TD24 TD SCH (09:17)
[2019-04-21] MEDS: Insulin LISPRO 300 UNITS/3 ML VIAL SQ SCH ×3 (09:19→16:56)
[2019-04-21] MEDS: Azithromycin 250 MG TABLET PO SCH (09:32)
[2019-04-21] MEDS: cefTRIAXone 1,000 MG in Water for inj. (sterile) 10 ML IVP SCH (09:32)
[2019-04-21] MEDS: cloNIDine HCl 0.1 MG TABLET PO SCH ×2 (09:34→20:03)
[2019-04-21] MEDS: Furosemide 40 MG TABLET PO SCH (09:34)
[2019-04-21] MEDS: Apixaban 5 MG TABLET PO SCH ×2 (09:34→20:03)
[2019-04-21] MEDS: Aspirin Enteric Coated 81 MG Tablet PO SCH (09:35)
[2019-04-21] MEDS: amLODIPine 5 MG TABLET PO SCH (09:35)
[2019-04-21] MEDS: Folic Acid 1 MG TABLET PO SCH (09:36)
[2019-04-21] MEDS ORDERED: Acetaminophen 325 MG TABLET PO PRN (15:19)
[2019-04-21] MEDS ORDERED: Gabapentin 300 MG CAPSULE PO SCH (21:00)
[2019-04-21] MEDS ORDERED: Insulin LISPRO 300 UNITS/3 ML VIAL SQ SCH (21:00)
[2019-04-21] MEDS ORDERED: traMADol 50 MG TABLET PO PRN (21:00)
[2019-04-22] MEDS: MethylPREDNISolone 40 MG/ML VIAL IVP SCH ×5 (00:17→16:58)
[2019-04-22] MEDS: Ipratropium/Albuterol Neb 3 ML IH SCH ×4 (03:32→21:19)
--- NOTE | 2019-04-22 07:05 | Pulmonology Progress Note ---
<Sumit Mills - Last Filed: 04/22/19 06:55> Date of Encounter: 04/22/19 Time of Encounter: 06:25 Assessment and Plan (1) Acute on chronic respiratory failure with hypoxia and hypercapnia Current Visit: Yes Status: Acute (2) COPD exacerbation Current Visit: Yes Status: Acute (3) Hypothyroidism Current Visit: Yes Status: Acute Qualifiers: Hypothyroidism type: unspecified Qualified Code(s): E03.9 - Hypothyroidism, unspecified (4) UTI (urinary tract infection) Current Visit: Yes Status: Acute Qualifiers: Urinary tract infection type: acute cystitis Hematuria presence: with hematuria Qualified Code(s): N30.01 - Acute cystitis with hematuria Subjective Interval history: Nursing staff reports that the patient has been fine overnight. She has been sleeping mostly and tolerating the BiPAP well. Patient seen and examined at bedside. She denies any new issues. Objective PUL Vital signs: Last Vital Signs Temp 97.9 F 04/22/19 04:00 Pulse 55 04/22/19 06:00 Resp 22 04/22/19 06:00 BP 135/64 04/22/19 06:00 Pulse Ox 96 04/22/19 06:00 Gen.: Elderly female. Resting tranquilly Skin: Some edema over the right thigh. Ecchymosis of bilateral forearms. Eyes: Moist. Anicteric Cardiac: Regular rate and rhythm. No murmurs gallops rubs. Mitral post not auscultated Respiratory: Low rhonchi in left lung base. Otherwise her posterior renee show little air movement. GI: Not diffusely tender Extremities: Capillary refill less than 2 seconds bilateral upper extremities. Venous stasis changes of bilateral lower extremities Neuro: Lorenzo 2. Somewhat sleepy but easily arousable Psych: Appropriate behavior. Answers questions A/P # Acute respiratory failure with hypoxia and hypercapnia secondary to COPD exacerbation Failed BiPAP therapy at home Initial ABG showed respiratory acidosis with metabolic acidosis initial A-a gradient 183 -Currently on BiPAP and satting well -Steroids, DuoNeb's, albuterol when necessary -Continue to monitor on BiPAP and nasal cannula -At high risk for invasive mechanical ventilation -Continue nothing by mouth diet for now #UTI Suspected Moderate leukocyte esterase with RBCs and WBCs and bacteria -Urine and blood Culture 04/20/19 pending -Ceftriaxone day 2 #Hypothyroidism Chronic TSH elevated -Home dose levothyroxine Results - Laboratory Findings CBC and BMP: 04/21/19 03:35 04/21/19 03:35 ABG ABG pH 7.17 pH Units (7.32-7.45) L* 04/20/19 21:50 ABG pCO2 132 mmHg (35-45) H* 04/20/19 21:50 ABG pO2 111 mmHg (85-104) H 04/20/19 21:50 ABG O2 Saturation 96 % (95-98) 04/20/19 21:50 Abnormal lab findings: Abnormal lab results RBC 3.51 M/mcL (3.82-4.97) L 04/21/19 03:35 Hgb 10.5 g/dL (11.5-15.4) L 04/21/19 03:35 Hct 34.4 % (35.3-44.9) L 04/21/19 03:35 MCHC 30.5 g/dL (31.6-35.5) L 04/21/19 03:35 RDW 14.6 % (11.5-14.5) H 04/21/19 03:35 Neutrophils # 9.3 K/mcL (1.6-8.9) H 04/21/19 03:35 Lymphocytes # 0.4 K/mcL (0.6-4.6) L 04/21/19 03:35 ABG pH 7.17 pH Units (7.32-7.45) L* 04/20/19 21:50 ABG pCO2 132 mmHg (35-45) H* 04/20/19 21:50 ABG pO2 111 mmHg (85-104) H 04/20/19 21:50 ABG HCO3 49 mEq/L (21-27) H 04/20/19 21:50 ABG Total CO2 > 50 mEq/L (20-26) H 04/20/19 21:50 ABG Base Excess 15 mEq/L (-2 to 3) H 04/20/19 21:50 Carbon Dioxide 39 mEq/L (23-29) H 04/21/19 03:35 Glucose 174 mg/dL (70-105) H 04/21/19 03:35 POC Glucose 127 mg/dL (70-99) H 04/21/19 20:05 Calculated Osmolality 303 (280-300) H 04/21/19 03:35 Total Bilirubin 0.2 mg/dL (0.3-1.0) L 04/21/19 03:35 AST 9 Units/L (13-39) L 04/21/19 03:35 ALT < 3 Units/L (7-52) L 04/21/19 03:35 B-Natriuretic Peptide 431 pg/mL (Less than 100) H 04/20/19 22:02 TSH 7.795 mcIU/mL (0.340-5.600) H 04/20/19 22:02 Urine Clarity Cloudy (Clear) A 04/20/19 21:29 Urine Protein 100 mg/dL (Neg-Trace) H 04/20/19 21:29 Urine Blood Large (Negative) H 04/20/19 21:29 Ur Leukocyte Esterase Moderate (Negative) H 04/20/19 21:29 Urine Microscopic RBC TNTC per hpf (0-3) H 04/20/19 21:29 Urine Microscopic WBC 50-100 per hpf (0-3) H 04/20/19 21:29 Urine Bacteria Many per hpf (None-Few) H 04/20/19 21:29 Ur Culture Indicated? YES (NO) A 04/20/19 21:29 - Microbiology Findings Microbiology Findings: Microbiology, Last 48 Hours 04/20/19 21:29 Urine Culture - Preliminary Urine,Catheterized (Straight) Culture is incubating. 04/20/19 22:02 Blood Culture - Preliminary Peripheral Venipuncture Culture is incubating and being continuously monitored for growth. Final report to follow. 04/20/19 22:02 Blood Culture - Preliminary Peripheral Venipuncture Culture is incubating and being continuously monitored for growth. Final report to follow. - Clinical Findings Intake & Output: Intake & Output 04/21/19 04/21/19 04/22/19 15:59 23:59 07:59 Intake Total 130 / 750 120 / 750 Output Total 175 / 530 80 / 530 120 / 120 Balance -45 / 220 40 / 220 -120 / -120 Weight 70 kg Consult Discharge Plan - Plan Referrals: NONE,PCP [Primary Care Provider] - <Felipe Putnam - Last Filed: 04/22/19 09:10> Date of Encounter: 04/22/19 Objective PUL Vital signs: Last Vital Signs Temp 98.0 F 04/22/19 08:23 Pulse 73 04/22/19 08:00 Resp 20 04/22/19 08:00 BP 124/56 04/22/19 08:00 Pulse Ox 94 04/22/19 08:00 Results - Laboratory Findings CBC and BMP: 04/21/19 03:35 04/21/19 03:35 ABG ABG pH 7.17 pH Units (7.32-7.45) L* 04/20/19 21:50 ABG pCO2 132 mmHg (35-45) H* 04/20/19 21:50 ABG pO2 111 mmHg (85-104) H 04/20/19 21:50 ABG O2 Saturation 96 % (95-98) 04/20/19 21:50 Abnormal lab findings: Abnormal lab results RBC 3.51 M/mcL (3.82-4.97) L 04/21/19 03:35 Hgb 10.5 g/dL (11.5-15.4) L 04/21/19 03:35 Hct 34.4 % (35.3-44.9) L 04/21/19 03:35 MCHC 30.5 g/dL (31.6-35.5) L 04/21/19 03:35 RDW 14.6 % (11.5-14.5) H 04/21/19 03:35 Neutrophils # 9.3 K/mcL (1.6-8.9) H 04/21/19 03:35 Lymphocytes # 0.4 K/mcL (0.6-4.6) L 04/21/19 03:35 ABG pH 7.17 pH Units (7.32-7.45) L* 04/20/19 21:50 ABG pCO2 132 mmHg (35-45) H* 04/20/19 21:50 ABG pO2 111 mmHg (85-104) H 04/20/19 21:50 ABG HCO3 49 mEq/L (21-27) H 04/20/19 21:50 ABG Total CO2 > 50 mEq/L (20-26) H 04/20/19 21:50 ABG Base Excess 15 mEq/L (-2 to 3) H 04/20/19 21:50 Carbon Dioxide 39 mEq/L (23-29) H 04/21/19 03:35 Glucose 174 mg/dL (70-105) H 04/21/19 03:35 POC Glucose 127 mg/dL (70-99) H 04/21/19 20:05 Calculated Osmolality 303 (280-300) H 04/21/19 03:35 Total Bilirubin 0.2 mg/dL (0.3-1.0) L 04/21/19 03:35 AST 9 Units/L (13-39) L 04/21/19 03:35 ALT < 3 Units/L (7-52) L 04/21/19 03:35 B-Natriuretic Peptide 431 pg/mL (Less than 100) H 04/20/19 22:02 TSH 7.795 mcIU/mL (0.340-5.600) H 04/20/19 22:02 Urine Clarity Cloudy (Clear) A 04/20/19 21:29 Urine Protein 100 mg/dL (Neg-Trace) H 04/20/19 21:29 Urine Blood Large (Negative) H 04/20/19 21:29 Ur Leukocyte Esterase Moderate (Negative) H 04/20/19 21:29 Urine Microscopic RBC TNTC per hpf (0-3) H 04/20/19 21:29 Urine Microscopic WBC 50-100 per hpf (0-3) H 04/20/19 21:29 Urine Bacteria Many per hpf (None-Few) H 04/20/19 21:29 Ur Culture Indicated? YES (NO) A 04/20/19 21:29 - Microbiology Findings Microbiology Findings: Microbiology, Last 48 Hours 04/20/19 21:29 Urine Culture - Preliminary Urine,Catheterized (Straight) Gram Negative Andre 04/20/19 22:02 Blood Culture - Preliminary Peripheral Venipuncture Culture is incubating and being continuously monitored for growth. Final report to follow. 04/20/19 22:02 Blood Culture - Preliminary Peripheral Venipuncture Culture is incubating and being continuously monitored for growth. Final report to follow. - Clinical Findings Intake & Output: Intake & Output 04/21/19 04/22/19 04/22/19 23:59 07:59 15:59 Intake Total 120 / 750 Output Total 80 / 530 120 / 195 75 / 195 Balance 40 / 220 -120 / -195 -75 / -195 Weight 70 kg - Attending Attestation I examined this patient and my medical decision-making was reviewed with the Philip chout Physician. I agree with the documented findings, disposition and treatment plan as described except to the extent set forth below. Patient seen and examined. Labs, radiology, chart personally reviewed. Agree with resident's history and physical, assessment, plan with following comments: CLAIM EXAMINER: Patient follows commands, Pulmonary: Acceptable oxygenation and ventilation. Patient is feeling better and breathing better. Continue noninvasive ventilation when necessary and as tolerated. Continue treatment for COPD exacerbation with bronchodilators and systemic steroid which hopefully will be able to taper down soon. Encourage incentive spirometry. Cardiovascular: stable GI: Nutrition per dietary and GI prophylaxis per routine Heme: DVT prophylaxis per routine ID: Continue antibiotics and plan to de-escalation Renal; urine out put and renal function reviewed. Remove Rivas catheter. Endorcine: blood glucose is monitored Lines: all lines checked and no evidence of infections Skin: skin care to prevent pressure ulcers per nursing routine care Dispo: Transferred to the floor Code: Full. Prognosis. Overall prognosis is poor from her underlying pulmonary disease. Overall patient is making good progress and can be transferred to the floor and need physical therapy.
[2019-04-22] MEDS: cefTRIAXone 1,000 MG in Water for inj. (sterile) 10 ML IVP SCH (08:05)
[2019-04-22] MEDS: Folic Acid 1 MG TABLET PO SCH (08:05)
[2019-04-22] MEDS: Nicotine 21 MG PATCH.TD24 TD SCH (08:06)
[2019-04-22] MEDS: Aspirin Enteric Coated 81 MG Tablet PO SCH (08:06)
[2019-04-22] MEDS: Furosemide 40 MG TABLET PO SCH (08:06)
[2019-04-22] MEDS: amLODIPine 5 MG TABLET PO SCH (08:06)
[2019-04-22] MEDS: Apixaban 5 MG TABLET PO SCH ×2 (08:06→20:35)
[2019-04-22] MEDS: cloNIDine HCl 0.1 MG TABLET PO SCH ×2 (08:06→20:34)
[2019-04-22] MEDS: Insulin LISPRO 300 UNITS/3 ML VIAL SQ SCH ×3 (08:07→16:59)
[2019-04-22] MEDS: Azithromycin 250 MG TABLET PO SCH (09:40)
[2019-04-22] MEDS ORDERED: traMADol 50 MG TABLET PO PRN (11:41)
[2019-04-22] MEDS ORDERED: Acetaminophen 325 MG TABLET PO PRN (11:41)
[2019-04-22] MEDS ORDERED: Albuterol 2.5 MG/3 ML NEBULIZER IH PRN (11:41)
[2019-04-22] MEDS ORDERED: *HR* Dextrose 50 % in Water (Syg) 50 ML SYRINGE IVP PRN (11:41)
[2019-04-22] MEDS ORDERED: Dextrose Gel 15 GM/37.5 ML TUBE PO PRN ×2 (11:41)
[2019-04-22] MEDS ORDERED: Naloxone 0.4 MG/ML INJ IVP PRN (11:41)
[2019-04-22] MEDS ORDERED: D5% in Water 1,000 ML IVC PRN (11:41)
[2019-04-22] MEDS: Gabapentin 300 MG CAPSULE PO SCH (20:34)
[2019-04-23] MEDS: Insulin LISPRO 300 UNITS/3 ML VIAL SQ SCH ×4 (00:32→18:09)
[2019-04-23] MEDS: MethylPREDNISolone 40 MG/ML VIAL IVP SCH ×2 (00:34→05:26)
[2019-04-23] MEDS: Ipratropium/Albuterol Neb 3 ML IH SCH ×4 (03:30→21:53)
[2019-04-23] MEDS: Aspirin Enteric Coated 81 MG Tablet PO SCH (09:06)
[2019-04-23] MEDS: Apixaban 5 MG TABLET PO SCH ×2 (09:06→22:27)
[2019-04-23] MEDS: Azithromycin 250 MG TABLET PO SCH (09:07)
[2019-04-23] MEDS: Furosemide 40 MG TABLET PO SCH (09:09)
[2019-04-23] MEDS: cloNIDine HCl 0.1 MG TABLET PO SCH ×2 (09:09→22:28)
[2019-04-23] MEDS: amLODIPine 5 MG TABLET PO SCH (09:09)
[2019-04-23] MEDS: Folic Acid 1 MG TABLET PO SCH (09:09)
[2019-04-23] MEDS: cefTRIAXone 1,000 MG in Water for inj. (sterile) 10 ML IVP SCH (09:10)
[2019-04-23] MEDS: Nicotine 21 MG PATCH.TD24 TD SCH (09:10)
--- NOTE | 2019-04-23 12:56 | Internal Med Progress Note ---
Hospitalist Progress Note - Encounter Date of Encounter: 04/23/19 Time of Encounter: 09:45 - Subjective Interval History: Patient was seen this morning, no events overnight. She was saturating well on 4 L of oxygen. She denied chest pain, shortness of breath or palpitation. She has no nausea/vomiting or abdominal pain. - Exam Vitals: Temp Pulse Resp BP Pulse Ox 97.7 F 57 21 145/67 99 04/23/19 10:55 04/23/19 10:55 04/23/19 10:55 04/23/19 10:55 04/23/19 10:55 Exam: General: Patient is alert, oriented 3. No distress Head: Atraumatic, normal inspection, normocephalic. Eye: EOMI, PERRLA ENT: Mucous membranes moist. Neck: Normal inspection,. Respiratory: Diminished lung sounds bilaterally, scattered wheezing. Cardiovascular: Regular rate and regular rhythm GI: Soft, nondistended, normal bowel sounds. Extremities:No joint swelling, pedal edema, or tenderness noted. Neurological: Alert, oriented 3, no focal deficits. Psychiatric: normal affect, normal mood. Skin: Dry, intact, warm. Normal color. No rashes. - Assessment and Plan (1) UTI (urinary tract infection) Current Visit: Yes Status: Acute (2) Acute respiratory failure with hypoxia and hypercapnia Current Visit: Yes Status: Resolved (3) Acute exacerbation of chronic obstructive airways disease Current Visit: Yes Status: Acute (4) Hypothyroidism Current Visit: Yes Status: Chronic (5) Hypertension Current Visit: Yes Status: Chronic (6) Altered mental status Current Visit: Yes Status: Resolved - Summary of Assessment and Plan Summary of Assessment and Plan: 73-year-old female with history of COPD on 4 L, rheumatoid arthritis, type II DM, PE, pulmonary hypertension who was admitted to the hospital due to change in mental status and was measuring the ICU for hypercarbic respiratory failure. Patient was transferred to the floor and her symptoms are managed as following: Acute hypercarbic respiratory failure: - 2/2 to COPD exacerbation, currently saturating well on 4 L of oxygen. - Continue breathing treatment, azithromycin day 3, switch her status to oral. UTI due to Escherichia coli: - On Rocephin day 2, will continue. IDDM: - Uncontrolled likely due to steroids, continue ADA diet, HTN: Continue home medications HFpEF: Looks euvolemic, NOT decompensated. Continue Lasix History of PE: Continue Eliquis Hypothyroidism: Continue home levothyroxine History of back surgery: Continue pain medication DVT prophylaxis: sc HEPARIN - Time Spent with Patient Total time spent is greater than 50% in coordination of care (as documented) at patient's floor/unit and/or counseling patient: Plan of Care Discussed with: patient Internal Medicine: Result - Labs CBC & Chem 7: 04/21/19 03:35 04/21/19 03:35 - ABG Interpretation ABG results: ABG ABG pH 7.17 pH Units (7.32-7.45) L* 04/20/19 21:50 ABG pCO2 132 mmHg (35-45) H* 04/20/19 21:50 ABG pO2 111 mmHg (85-104) H 04/20/19 21:50 ABG O2 Saturation 96 % (95-98) 04/20/19 21:50 Consult Discharge Plan - Plan Referrals: NONE,PCP [Primary Care Provider] - (1) UTI (urinary tract infection) Qualifiers: Urinary tract infection type: acute cystitis Hematuria presence: with hematuria Qualified Code(s): N30.01 - Acute cystitis with hematuria (4) Hypothyroidism Qualifiers: Hypothyroidism type: unspecified Qualified Code(s): E03.9 - Hypothyroidism, unspecified (5) Hypertension Qualifiers: Hypertension type: essential hypertension Qualified Code(s): I10 - Essential (primary) hypertension (6) Altered mental status Qualifiers: Altered mental status type: somnolence Qualified Code(s): R40.0 - Somnolence
[2019-04-24] MEDS: Gabapentin 300 MG CAPSULE PO SCH ×2 (01:17→22:18)
[2019-04-24] MEDS: Insulin LISPRO 300 UNITS/3 ML VIAL SQ SCH ×5 (01:17→22:26)
[2019-04-24 02:13] LABS: Hematocrit 30.1 % (35.3-44.9); Mean Corpuscular HGB Conc 29.9 g/dL (31.6-35.5); Mean Corpuscular Hemoglobin 29.4 pg (28.0-33.3); Mean Corpuscular Volume 98.4 fL (83.0-100.0); Mean Platelet Volume 10.3 fL (9.4-12.4); Platelet Count 179 K/mcL (140-400); Red Blood Count 3.06 M/mcL (3.82-4.97); Red Cell Distribution Width 14.5 % (11.5-14.5); White Blood Count 8.4 K/mcL (4.3-11.1)
[2019-04-24 02:41] LABS: BUN/Creatinine Ratio 43 (6-26); Blood Urea Nitrogen 49 mg/dL (8-23); Calcium 9.3 mg/dL (8.6-10.3); Carbon Dioxide > 45 mEq/L (23-29); Chloride 96 mEq/L (98-107); Glucose 157 mg/dL (70-105); Osmolality,Calculated 316 (280-300); Sodium 145 mEq/L (136-145); eGFR For African Americans 57 (> 60); eGFR For Non-African Americans 47 (> 60)
[2019-04-24 03:08] LABS: ABG Base Excess 16 mEq/L (-2 to 3); ABG HCO3 46 mEq/L (21-27); ABG Oxygen Saturation 96 % (95-98); ABG PCO2 106 mmHg (35-45); ABG PH 7.25 pH Units (7.32-7.45); ABG PO2 100 mmHg (85-104); ABG TCO2 50 mEq/L (20-26); Blood Gas FiO2 4.5 (1-15=lpm or21-100=%)
[2019-04-24] MEDS: Ipratropium/Albuterol Neb 3 ML IH SCH ×4 (03:50→22:17)
[2019-04-24 05:58] LABS: ABG Base Excess 16 mEq/L (-2 to 3); ABG HCO3 46 mEq/L (21-27); ABG Oxygen Saturation 97 % (95-98); ABG PCO2 106 mmHg (35-45); ABG PH 7.25 pH Units (7.32-7.45); ABG PO2 117 mmHg (85-104); ABG TCO2 50 mEq/L (20-26); Blood Gas Modality AVAPS; Blood Gas PEEP 8 cm H2O; Blood Gas VT 450 cc
[2019-04-24] MEDS ORDERED: predniSONE 20 MG TABLET PO SCH (09:00)
[2019-04-24] MEDS ORDERED: Ergocalciferol (VIT D2) 50,000 UNIT (1.25MG) CAP PO SCH ×2 (09:00)
[2019-04-24] MEDS ORDERED: MethylPREDNISolone 40 MG/ML VIAL IVP SCH (09:00)
[2019-04-24] MEDS: cefTRIAXone 1,000 MG in Water for inj. (sterile) 10 ML IVP SCH (10:23)
[2019-04-24] MEDS: Azithromycin 250 MG TABLET PO SCH (10:26)
[2019-04-24] MEDS: Apixaban 5 MG TABLET PO SCH ×2 (10:27→22:19)
[2019-04-24] MEDS: Furosemide 40 MG TABLET PO SCH (10:27)
[2019-04-24] MEDS: Aspirin Enteric Coated 81 MG Tablet PO SCH (10:27)
[2019-04-24] MEDS: amLODIPine 5 MG TABLET PO SCH (10:27)
[2019-04-24] MEDS: cloNIDine HCl 0.1 MG TABLET PO SCH ×2 (10:27→22:19)
[2019-04-24] MEDS: Folic Acid 1 MG TABLET PO SCH (10:27)
[2019-04-24] MEDS: Nicotine 21 MG PATCH.TD24 TD SCH (10:28)
[2019-04-24 10:37] LABS: ABG Base Excess 16 mEq/L (-2 to 3); ABG HCO3 47 mEq/L (21-27); ABG Oxygen Saturation 98 % (95-98); ABG PCO2 111 mmHg (35-45); ABG PH 7.24 pH Units (7.32-7.45); ABG PO2 141 mmHg (85-104); ABG TCO2 > 50 mEq/L (20-26); Blood Gas Modality AVAPS; Blood Gas VT 500 cc
[2019-04-24 13:41] LABS: ABG Base Excess 18 mEq/L (-2 to 3); ABG HCO3 49 mEq/L (21-27); ABG Oxygen Saturation 97 % (95-98); ABG PCO2 107 mmHg (35-45); ABG PH 7.27 pH Units (7.32-7.45); ABG PO2 117 mmHg (85-104); ABG TCO2 > 50 mEq/L (20-26); Blood Gas PEEP 8 cm H2O; Blood Gas VT 500 cc
--- NOTE | 2019-04-24 14:38 | Internal Med Progress Note ---
Hospitalist Progress Note - Encounter Date of Encounter: 04/24/19 Time of Encounter: 09:45 - Subjective Interval History: Patient was seen this morning, looks more somnolent but arousable. She is oriented 3 however she gets back to sleep quickly. She remained on BiPAP most of the day and overnight. She denied any chest pain shortness of breath or pa lpitation. She has no nausea/vomiting or abdominal pain. - Exam Vitals: Temp Pulse Resp BP Pulse Ox 97.7 F 68 20 120/72 100 04/24/19 11:31 04/24/19 11:31 04/24/19 11:31 04/24/19 11:31 04/24/19 11:31 Exam: General: Somnolent but arousable, oriented 3 Head: Atraumatic, normal inspection, normocephalic. Eye: EOMI, PERRLA ENT: Mucous membranes moist. Neck: Normal inspection,. Respiratory: Diminished lung sounds bilaterally, scattered wheezing. Cardiovascular: Regular rate and regular rhythm GI: Soft, nondistended, normal bowel sounds. Extremities:No joint swelling, pedal edema, or tenderness noted. Neurological: no focal deficits. Psychiatric: normal affect, normal mood. Skin: Dry, intact, warm. Normal color. No rashes. - Assessment and Plan (1) Acute respiratory failure with hypoxia and hypercapnia Current Visit: Yes Status: Resolved (2) UTI (urinary tract infection) Current Visit: Yes Status: Acute (3) Acute exacerbation of chronic obstructive airways disease Current Visit: Yes Status: Acute (4) Hypothyroidism Current Visit: Yes Status: Chronic (5) Hypertension Current Visit: Yes Status: Chronic (6) Altered mental status Current Visit: Yes Status: Resolved - Summary of Assessment and Plan Summary of Assessment and Plan: 73-year-old female with history of COPD on 4 L, rheumatoid arthritis, type II DM, PE, pulmonary hypertension who was admitted to the hospital due to change in mental status and was measuring the ICU for hypercarbic respiratory failure. Patient was transferred to the floor and her symptoms are managed as following: Acute hypercarbic respiratory failure: - 2/2 to COPD exacerbation, currently on bipap. ABG this morning with woresening PCO2. COnsult placed to pulm. She may require re-admission to the ICU. - Continue breathing treatment, azithromycin day 4, IV steroids. . UTI due to Escherichia coli: - On Rocephin day 3, will continue. IDDM: - Uncontrolled likely due to steroids, continue ADA diet, HTN: Continue home medications HFpEF: Looks euvolemic, NOT decompensated. Continue Lasix History of PE: Continue Eliquis Hypothyroidism: Continue home levothyroxine History of back surgery: Continue pain medication DVT prophylaxis: sc HEPARIN - Time Spent with Patient Total time spent is greater than 50% in coordination of care (as documented) at patient's floor/unit and/or counseling patient: Plan of Care Discussed with: patient Internal Medicine: Result - Labs CBC & Chem 7: 04/24/19 01:47 04/24/19 01:47 Labs: Short CBC 04/24/19 Range/Units 01:47 WBC 8.4 (4.3-11.1) K/mcL Hgb 9.0 L D (11.5-15.4) g/dL Hct 30.1 L (35.3-44.9) % Plt Count 179 (140-400) K/mcL BMP 04/24/19 01:47 Sodium 145 Potassium 5.0 Chloride 96 L Carbon Dioxide > 45 H* BUN 49 H Creatinine 1.14 Glucose 157 H Calcium 9.3 - ABG Interpretation ABG results: ABG ABG pH 7.27 pH Units (7.32-7.45) L 04/24/19 13:33 ABG pCO2 107 mmHg (35-45) H* 04/24/19 13:33 ABG pO2 117 mmHg (85-104) H 04/24/19 13:33 ABG O2 Saturation 97 % (95-98) 04/24/19 13:33 Consult Discharge Plan - Plan Referrals: NONE,PCP [Primary Care Provider] - (2) UTI (urinary tract infection) Qualifiers: Urinary tract infection type: acute cystitis Hematuria presence: with hematuria Qualified Code(s): N30.01 - Acute cystitis with hematuria (4) Hypothyroidism Qualifiers: Hypothyroidism type: unspecified Qualified Code(s): E03.9 - Hypothyroidism, unspecified (5) Hypertension Qualifiers: Hypertension type: essential hypertension Qualified Code(s): I10 - Essential (primary) hypertension (6) Altered mental status Qualifiers: Altered mental status type: somnolence Qualified Code(s): R40.0 - Somnolence
--- NOTE | 2019-04-24 15:35 | Pulmonology Progress Note ---
<Jose F Salinas W - Last Filed: 04/24/19 15:51> Date of Encounter: 04/24/19 Objective PUL Vital signs: Last Vital Signs Temp 97.7 F 04/24/19 11:31 Pulse 68 04/24/19 11:31 Resp 20 04/24/19 11:31 BP 120/72 04/24/19 11:31 Pulse Ox 100 04/24/19 11:31 Ventilator Settings Ventilator Settings: Ventilator Settings, Last 8 Hours Ventilator Tidal Volume 500 Setting Ventilator Respiratory Rate 12 Setting Positive End Expiratory 8 Pressure Results - Laboratory Findings CBC and BMP: 04/24/19 01:47 04/24/19 01:47 ABG ABG pH 7.27 pH Units (7.32-7.45) L 04/24/19 13:33 ABG pCO2 107 mmHg (35-45) H* 04/24/19 13:33 ABG pO2 117 mmHg (85-104) H 04/24/19 13:33 ABG O2 Saturation 97 % (95-98) 04/24/19 13:33 Abnormal lab findings: Abnormal lab results RBC 3.06 M/mcL (3.82-4.97) L 04/24/19 01:47 Hgb 9.0 g/dL (11.5-15.4) L D 04/24/19 01:47 Hct 30.1 % (35.3-44.9) L 04/24/19 01:47 MCHC 29.9 g/dL (31.6-35.5) L 04/24/19 01:47 RDW 14.6 % (11.5-14.5) H 04/21/19 03:35 Neutrophils # 9.3 K/mcL (1.6-8.9) H 04/21/19 03:35 Lymphocytes # 0.4 K/mcL (0.6-4.6) L 04/21/19 03:35 ABG pH 7.27 pH Units (7.32-7.45) L 04/24/19 13:33 ABG pCO2 107 mmHg (35-45) H* 04/24/19 13:33 ABG pO2 117 mmHg (85-104) H 04/24/19 13:33 ABG HCO3 49 mEq/L (21-27) H 04/24/19 13:33 ABG Total CO2 > 50 mEq/L (20-26) H 04/24/19 13:33 ABG Base Excess 18 mEq/L (-2 to 3) H 04/24/19 13:33 Chloride 96 mEq/L (98-107) L 04/24/19 01:47 Carbon Dioxide > 45 mEq/L (23-29) H* 04/24/19 01:47 BUN 49 mg/dL (8-23) H 04/24/19 01:47 Est GFR ( Amer) 57 (> 60) L 04/24/19 01:47 Est GFR (Non-Af Amer) 47 (> 60) L 04/24/19 01:47 BUN/Creatinine Ratio 43 (6-26) H 04/24/19 01:47 Glucose 157 mg/dL (70-105) H 04/24/19 01:47 POC Glucose 162 mg/dL (70-99) H 04/23/19 21:05 Calculated Osmolality 316 (280-300) H 04/24/19 01:47 Total Bilirubin 0.2 mg/dL (0.3-1.0) L 04/21/19 03:35 AST 9 Units/L (13-39) L 04/21/19 03:35 ALT < 3 Units/L (7-52) L 04/21/19 03:35 B-Natriuretic Peptide 431 pg/mL (Less than 100) H 04/20/19 22:02 TSH 7.795 mcIU/mL (0.340-5.600) H 04/20/19 22:02 Urine Clarity Cloudy (Clear) A 04/20/19 21:29 Urine Protein 100 mg/dL (Neg-Trace) H 04/20/19 21:29 Urine Blood Large (Negative) H 04/20/19 21:29 Ur Leukocyte Esterase Moderate (Negative) H 04/20/19 21:29 Urine Microscopic RBC TNTC per hpf (0-3) H 04/20/19 21:29 Urine Microscopic WBC 50-100 per hpf (0-3) H 04/20/19 21:29 Urine Bacteria Many per hpf (None-Few) H 04/20/19 21:29 Ur Culture Indicated? YES (NO) A 04/20/19 21:29 - Microbiology Findings Microbiology Findings: Microbiology, Last 48 Hours 04/20/19 21:29 Urine Culture - Final Urine,Catheterized (Straight) Escherichia coli - Clinical Findings Intake & Output: Intake & Output 04/23/19 04/24/19 04/24/19 23:59 07:59 15:59 Intake Total 240 / 890 Balance 240 / 740 Weight 72.2 kg Consult Discharge Plan - Plan Referrals: NONE,PCP [Primary Care Provider] - - Attending Attestation I examined this patient and my medical decision-making was reviewed with the Resident Physician. I agree with the documented findings, disposition and treatment plan as described except to the extent set forth below. We independently had [id number] contact with the patient Patient seen and examined at bedside Labs, radiology, chart personally reviewed. Impression/Recs: Acute on chronic hypoxic hypercapnic respiratory failure COPD exacerbation Metabolic encephalopathy Heart failure with preserved ejection fraction Lilly is well-known to the pulmonary service for multiple episodes of respiratory failure including endotracheal intubation. Unfortunately she suffers from essentially terminal lung disease and her ABGs reflection of that PCO2 today is still greater than 100 although her pH 7.27. She is having acceptable mentation but is still clearly quite confused from my degree of hypercarbia. Unfortunately patient has also resumed smoking. She will need continuous noninvasive ventilation for the next 12-24 hours. Repeat ABG should be performed if mental status worsens she remains at high risk for further progression to requirement of endotracheal intubation especially if her mentation worsens. I recommend she be transferred to higher level of acuity such as [address] [place] [address] (stepdown unit) for closer monitoring. She is appropriately on antibiotics and I have augmented her systemic glucocorticoid regimen. It is quite possible that she is steroid resistant unfortunately. She should have continued scheduled bronchodilators. Ideally patient would benefit from some diuresis but her renal function is tenuous I would avoid aggressive diuresis right now but keep her more even to slightly negative over the next 24-48 hours. Please avoid any [employer] depressant medications (review of her MAR reveal use of gabapentin and tramadol). Given advanced lung disease and frequent exacerbations should be a candidate for palliative care consultation and is hospice appropriate. Pulmonary will continue to follow Do not hesitate to call me with any questions or concerns Red Salinas [phone] <Simone Butler M - Last Filed: 04/24/19 16:51> Date of Encounter: 04/24/19 Time of Encounter: 14:00 Assessment and Plan (1) Acute on chronic respiratory failure with hypoxia and hypercapnia Current Visit: Yes Status: Acute Patient has multiple admissions for similar presentation over the past several years. Pulmonary function test performed previously revealed severe gas exchange impairment with severe obstructive lung disease. Secondary to patient's significant history of tobacco abuse. Patient has recently resumed smoking though she has been counseled multiple times in the past to stop. Previous CT chest revealed severe emphysematous changes. Chest x-ray on admission this time reveals redemonstration of emphysema with possible trace left effusions and what appears to be mild interstitial edema, in addition to enlarged main pulmonary arteries suggesting possible underlying pulmonary hypertension. Patient was started on IV steroids and admitted to the ICU with continuous BiPAP initiated secondary to hypercarbia and somnolence. Patient was switched to oral steroids yesterday continued on azithromycin and scheduled bronchodilators. Today patient's CO2 continues to remain significantly elevated, 1074 readings despite continued BiPAP. Acute decompensated heart diastolic heart failure is complicating treatment plan as patient would likely benefit from diuresis thus improving her respiratory status and decreasing her pulmonary edema, however her GFR has declined recently, her BUN continues to rise, creatinine is within normal limits but has increased since admission from 0.79-1.19. Plan: -Solu-Medrol 60 mg every 8 hours -Continue scheduled bronchodilators -Transfer to stepdown unit for closer monitoring -We will give one-time dose IV Lasix 40 -Continue azithromycin -Patient suffers from severe end-stage emphysematous changes with multiple recurrent hospital admissions for acute on chronic respiratory failure, would likely benefit from palliative consult to discuss ongoing goals of care (2) Acute exacerbation of chronic obstructive airways disease Current Visit: Yes Status: Acute Continue steroids Continuous BiPAP Continuous oximetry Continue azithromycin and scheduled bronchodilators Rest of plan as above (3) Acute on chronic diastolic (congestive) heart failure Current Visit: No Status: Acute Known history of heart failure with preserved ejection fraction Plan acute decompensation, chest x-ray with evidence of pulmonary edema and pulmonary hypertension Her home dose of Lasix by mouth 40 mg daily has been resumed Patient is having mild elevation in her serum creatinine and decreasing GFR however would likely benefit from increased diuresis as this is likely contributing to her significant respiratory distress Subjective Principal diagnosis: Respiratory Failure Interval history: Patient was seen and examined at bedside. Recent stepdown from the ICU, admitted for hypercapnic respiratory failure with hypoxia and worsening worsening somnolence. ABG on admission showed PCO2 132, responded well to BiPAP and was more arousable. Today her PCO2 was still 107, has been on BiPAP continuously since admission. Respiratory acidosis is somewhat improving, pH 7.27 up from 7.17 on admission. Patient bicarbonate continues to rise, was 40 on admission, 49 today, possible contraction alkalosis secondary to diuresis. Patient subjectively reports she is doing no better than yesterday. States she has recently resumed smoking, 3-5 cigarettes per day, likely precipitated her acute compensated respiratory failure. Objective PUL Vital signs: Last Vital Signs Temp 97.7 F 04/24/19 11:31 Pulse 68 04/24/19 11:31 Resp 20 04/24/19 11:31 BP 120/72 04/24/19 11:31 Pulse Ox 100 04/24/19 11:31 Gen.: Arousable but lethargic, oriented 2, mild distress Head: Atraumatic, normocephalic Eyes: Anicteric sclera, moist conjunctiva ENT: Mucous members are moist CV: Regular rate and rhythm, no murmurs, gallops, rubs Respiratory: Scattered wheezes noted throughout all lung bases, occasional rhonchi appreciated as well, no crackles on exam, poor inspiratory, expiratory effort Extremities: No peripheral edema, no cyanosis, no clubbing Skin: Venous stasis dermatitis changes noted bilaterally Ventilator Settings Ventilator Settings: Ventilator Settings, Last 8 Hours Ventilator Tidal Volume 500 Setting Ventilator Respiratory Rate 12 Setting Positive End Expiratory 8 Pressure Results - Laboratory Findings CBC and BMP: 04/24/19 01:47 04/24/19 01:47 ABG ABG pH 7.27 pH Units (7.32-7.45) L 04/24/19 13:33 ABG pCO2 107 mmHg (35-45) H* 04/24/19 13:33 ABG pO2 117 mmHg (85-104) H 04/24/19 13:33 ABG O2 Saturation 97 % (95-98) 04/24/19 13:33 Abnormal lab findings: Abnormal lab results RBC 3.06 M/mcL (3.82-4.97) L 04/24/19 01:47 Hgb 9.0 g/dL (11.5-15.4) L D 04/24/19 01:47 Hct 30.1 % (35.3-44.9) L 04/24/19 01:47 MCHC 29.9 g/dL (31.6-35.5) L 04/24/19 01:47 RDW 14.6 % (11.5-14.5) H 04/21/19 03:35 Neutrophils # 9.3 K/mcL (1.6-8.9) H 04/21/19 03:35 Lymphocytes # 0.4 K/mcL (0.6-4.6) L 04/21/19 03:35 ABG pH 7.27 pH Units (7.32-7.45) L 04/24/19 13:33 ABG pCO2 107 mmHg (35-45) H* 04/24/19 13:33 ABG pO2 117 mmHg (85-104) H 04/24/19 13:33 ABG HCO3 49 mEq/L (21-27) H 04/24/19 13:33 ABG Total CO2 > 50 mEq/L (20-26) H 04/24/19 13:33 ABG Base Excess 18 mEq/L (-2 to 3) H 04/24/19 13:33 Chloride 96 mEq/L (98-107) L 04/24/19 01:47 Carbon Dioxide > 45 mEq/L (23-29) H* 04/24/19 01:47 BUN 49 mg/dL (8-23) H 04/24/19 01:47 Est GFR ( Amer) 57 (> 60) L 04/24/19 01:47 Est GFR (Non-Af Amer) 47 (> 60) L 04/24/19 01:47 BUN/Creatinine Ratio 43 (6-26) H 04/24/19 01:47 Glucose 157 mg/dL (70-105) H 04/24/19 01:47 POC Glucose 162 mg/dL (70-99) H 04/23/19 21:05 Calculated Osmolality 316 (280-300) H 04/24/19 01:47 Total Bilirubin 0.2 mg/dL (0.3-1.0) L 04/21/19 03:35 AST 9 Units/L (13-39) L 04/21/19 03:35 ALT < 3 Units/L (7-52) L 04/21/19 03:35 B-Natriuretic Peptide 431 pg/mL (Less than 100) H 04/20/19 22:02 TSH 7.795 mcIU/mL (0.340-5.600) H 04/20/19 22:02 Urine Clarity Cloudy (Clear) A 04/20/19 21:29 Urine Protein 100 mg/dL (Neg-Trace) H 04/20/19 21:29 Urine Blood Large (Negative) H 04/20/19 21:29 Ur Leukocyte Esterase Moderate (Negative) H 04/20/19 21:29 Urine Microscopic RBC TNTC per hpf (0-3) H 04/20/19 21:29 Urine Microscopic WBC 50-100 per hpf (0-3) H 04/20/19 21:29 Urine Bacteria Many per hpf (None-Few) H 04/20/19 21:29 Ur Culture Indicated? YES (NO) A 04/20/19 21:29 - Microbiology Findings Microbiology Findings: Microbiology, Last 48 Hours 04/20/19 21:29 Urine Culture - Final Urine,Catheterized (Straight) Escherichia coli - Clinical Findings Intake & Output: Intake & Output 04/23/19 04/24/19 04/24/19 23:59 07:59 15:59 Intake Total 240 / 890 Balance 240 / 740 Weight 72.2 kg
[2019-04-24] MEDS ORDERED: Acetaminophen 325 MG TABLET PO PRN (19:47)
[2019-04-24] MEDS ORDERED: Naloxone 0.4 MG/ML INJ IVP PRN (19:47)
[2019-04-24] MEDS ORDERED: *HR* Dextrose 50 % in Water (Syg) 50 ML SYRINGE IVP PRN (19:47)
[2019-04-24] MEDS ORDERED: Albuterol 2.5 MG/3 ML NEBULIZER IH PRN (19:47)
[2019-04-24] MEDS ORDERED: Dextrose Gel 15 GM/37.5 ML TUBE PO PRN ×2 (19:47)
[2019-04-24] MEDS ORDERED: D5% in Water 1,000 ML IVC PRN (19:47)
[2019-04-24] MEDS: methylPREDNISolone 125 MG/2 ML VIAL IVP SCH (22:19)
[2019-04-24] MEDS: Ergocalciferol (VIT D2) 50,000 UNIT (1.25MG) CAP PO SCH (22:45)
[2019-04-25] MEDS ORDERED: methylPREDNISolone 125 MG/2 ML VIAL IVP SCH
[2019-04-25 02:14] LABS: Hematocrit 29.6 % (35.3-44.9); Mean Corpuscular HGB Conc 30.4 g/dL (31.6-35.5); Mean Corpuscular Hemoglobin 29.9 pg (28.0-33.3); Mean Corpuscular Volume 98.3 fL (83.0-100.0); Mean Platelet Volume 11.2 fL (9.4-12.4); Platelet Count 117 K/mcL (140-400); Red Blood Count 3.01 M/mcL (3.82-4.97); Red Cell Distribution Width 14.3 % (11.5-14.5); White Blood Count 5.9 K/mcL (4.3-11.1)
[2019-04-25 02:34] LABS: BUN/Creatinine Ratio 54 (6-26); Blood Urea Nitrogen 45 mg/dL (8-23); Carbon Dioxide 44 mEq/L (23-29); Chloride 95 mEq/L (98-107); Glucose 129 mg/dL (70-105); Osmolality,Calculated 311 (280-300); Potassium 5.5 mEq/L (3.5-5.1); Sodium 144 mEq/L (136-145); eGFR For African Americans > 60 (> 60); eGFR For Non-African Americans > 60 (> 60)
[2019-04-25] MEDS: Ipratropium/Albuterol Neb 3 ML IH SCH ×4 (04:47→22:20)
[2019-04-25 05:05] LABS: ABG Base Excess 23 mEq/L (-2 to 3); ABG HCO3 53 mEq/L (21-27); ABG Oxygen Saturation 98 % (95-98); ABG PCO2 103 mmHg (35-45); ABG PH 7.32 pH Units (7.32-7.45); ABG PO2 126 mmHg (85-104); ABG TCO2 > 50 mEq/L (20-26)
[2019-04-25] MEDS: methylPREDNISolone 125 MG/2 ML VIAL IVP SCH ×3 (05:59→20:39)
[2019-04-25] MEDS ORDERED: Furosemide 40 MG/4 ML VIAL IVP ONE (07:19)
[2019-04-25] MEDS: Apixaban 5 MG TABLET PO SCH ×2 (08:02→20:40)
[2019-04-25] MEDS: Folic Acid 1 MG TABLET PO SCH (08:03)
[2019-04-25] MEDS: Aspirin Enteric Coated 81 MG Tablet PO SCH (08:03)
[2019-04-25] MEDS: Nicotine 21 MG PATCH.TD24 TD SCH (08:03)
[2019-04-25] MEDS: amLODIPine 5 MG TABLET PO SCH (08:03)
[2019-04-25] MEDS: cloNIDine HCl 0.1 MG TABLET PO SCH ×2 (08:03→20:39)
[2019-04-25] MEDS: Insulin LISPRO 300 UNITS/3 ML VIAL SQ SCH ×4 (08:04→20:40)
[2019-04-25] MEDS ORDERED: cefTRIAXone 1,000 MG in Water for inj. (sterile) 10 ML IVP SCH (09:00)
[2019-04-25] MEDS ORDERED: Azithromycin 250 MG TABLET PO SCH (09:00)
[2019-04-25] MEDS ORDERED: Furosemide 40 MG TABLET PO SCH (09:00)
--- NOTE | 2019-04-25 10:25 | Pulmonology Progress Note ---
Date of Encounter: 04/25/19 Time of Encounter: 09:00 Assessment and Plan (1) Acute on chronic respiratory failure with hypoxia and hypercapnia Current Visit: Yes Status: Acute Patient has multiple admissions for similar presentation over the past several years. Pulmonary function test performed previously revealed severe gas exchange impairment with severe obstructive lung disease. Secondary to patient's significant history of tobacco abuse. Patient has recently resumed smoking though she has been counseled multiple times in the past to stop. P revious CT chest revealed severe emphysematous changes. Chest x-ray on admission this time reveals redemonstration of emphysema with possible trace left effusions and what appears to be mild interstitial edema, in addition to enlarged main pulmonary arteries suggesting possible underlying pulmonary hypertension. Patient was started on IV steroids and admitted to the ICU with continuous BiPAP initiated secondary to hypercarbia and somnolence. Patient was switched to oral steroids yesterday continued on azithromycin and scheduled bronchodilators. Today patient's CO2 continues to remain significantly elevated, 1074 readings despite continued BiPAP. Acute decompensated heart diastolic heart failure is complicating treatment plan as patient would likely benefit from diuresis thus improving her respiratory status and decreasing her pulmonary edema, however her GFR has declined recently, her BUN continues to rise, creatinine is within normal limits but has increased since admission from 0.79-1.19. Plan: -Solu-Medrol 60 mg every 8 hours -Continue scheduled bronchodilators -Transfer to stepdown unit for closer monitoring -We will give one-time dose IV Lasix 40 -Continue azithromycin -Patient suffers from severe end-stage emphysematous changes with multiple recurrent hospital admissions for acute on chronic respiratory failure, would likely benefit from palliative consult to discuss ongoing goals of care (2) Acute exacerbation of chronic obstructive airways disease Current Visit: Yes Status: Acute Continue steroids Continuous BiPAP Continuous oximetry Continue azithromycin and scheduled bronchodilators Rest of plan as above (3) Acute on chronic diastolic (congestive) heart failure Current Visit: No Status: Acute Known history of heart failure with preserved ejection fraction Plan acute decompensation, chest x-ray with evidence of pulmonary edema and pulmonary hypertension Her home dose of Lasix by mouth 40 mg daily has been resumed Patient is having mild elevation in her serum creatinine and decreasing GFR however would likely benefit from increased diuresis as this is likely contributing to her significant respiratory distress Subjective Principal diagnosis: Respiratory Failure Interval history: Patient was seen and examined at bedside. Patient significantly improved today compared to yesterday. Objective PUL Vital signs: Last Vital Signs Temp 97.7 F 04/25/19 07:20 Pulse 48 04/25/19 07:20 Resp 20 04/25/19 07:20 BP 140/77 04/25/19 07:20 Pulse Ox 99 04/25/19 07:20 Results - Laboratory Findings CBC and BMP: 04/25/19 01:36 04/25/19 01:36 ABG ABG pH 7.32 pH Units (7.32-7.45) 04/25/19 04:47 ABG pCO2 103 mmHg (35-45) H* 04/25/19 04:47 ABG pO2 126 mmHg (85-104) H 04/25/19 04:47 ABG O2 Saturation 98 % (95-98) 04/25/19 04:47 Abnormal lab findings: Abnormal lab results RBC 3.01 M/mcL (3.82-4.97) L 04/25/19 01:36 Hgb 9.0 g/dL (11.5-15.4) L 04/25/19 01:36 Hct 29.6 % (35.3-44.9) L 04/25/19 01:36 MCHC 30.4 g/dL (31.6-35.5) L 04/25/19 01:36 RDW 14.6 % (11.5-14.5) H 04/21/19 03:35 Plt Count 117 K/mcL (140-400) L 04/25/19 01:36 Neutrophils # 9.3 K/mcL (1.6-8.9) H 04/21/19 03:35 Lymphocytes # 0.4 K/mcL (0.6-4.6) L 04/21/19 03:35 ABG pH 7.27 pH Units (7.32-7.45) L 04/24/19 13:33 ABG pCO2 103 mmHg (35-45) H* 04/25/19 04:47 ABG pO2 126 mmHg (85-104) H 04/25/19 04:47 ABG HCO3 53 mEq/L (21-27) H 04/25/19 04:47 ABG Total CO2 > 50 mEq/L (20-26) H 04/25/19 04:47 ABG Base Excess 23 mEq/L (-2 to 3) H 04/25/19 04:47 Potassium 5.5 mEq/L (3.5-5.1) H 04/25/19 01:36 Chloride 95 mEq/L (98-107) L 04/25/19 01:36 Carbon Dioxide 44 mEq/L (23-29) H* 04/25/19 01:36 BUN 45 mg/dL (8-23) H 04/25/19 01:36 Est GFR ( Amer) 57 (> 60) L 04/24/19 01:47 Est GFR (Non-Af Amer) 47 (> 60) L 04/24/19 01:47 BUN/Creatinine Ratio 54 (6-26) H 04/25/19 01:36 Glucose 129 mg/dL (70-105) H 04/25/19 01:36 POC Glucose 232 mg/dL (70-99) H 04/24/19 19:19 Calculated Osmolality 311 (280-300) H 04/25/19 01:36 Total Bilirubin 0.2 mg/dL (0.3-1.0) L 04/21/19 03:35 AST 9 Units/L (13-39) L 04/21/19 03:35 ALT < 3 Units/L (7-52) L 04/21/19 03:35 B-Natriuretic Peptide 431 pg/mL (Less than 100) H 04/20/19 22:02 TSH 7.795 mcIU/mL (0.340-5.600) H 04/20/19 22:02 Urine Clarity Cloudy (Clear) A 04/20/19 21:29 Urine Protein 100 mg/dL (Neg-Trace) H 04/20/19 21:29 Urine Blood Large (Negative) H 04/20/19 21:29 Ur Leukocyte Esterase Moderate (Negative) H 04/20/19 21:29 Urine Microscopic RBC TNTC per hpf (0-3) H 04/20/19 21:29 Urine Microscopic WBC 50-100 per hpf (0-3) H 04/20/19 21:29 Urine Bacteria Many per hpf (None-Few) H 04/20/19 21:29 Ur Culture Indicated? YES (NO) A 04/20/19 21:29 - Microbiology Findings Microbiology Findings: Microbiology, Last 48 Hours 04/20/19 21:29 Urine Culture - Final Urine,Catheterized (Straight) Escherichia coli - Clinical Findings Intake & Output: Intake & Output 04/24/19 04/25/19 04/25/19 23:59 07:59 15:59 Intake Total 360 / 360 Balance 360 / 360 Weight 71.6 kg Consult Discharge Plan - Plan Referrals: NONE,PCP [Primary Care Provider] -
--- NOTE | 2019-04-25 11:11 | Internal Med Progress Note ---
Hospitalist Progress Note - Encounter Date of Encounter: 04/25/19 Time of Encounter: 08:00 - Subjective Interval History: Hospital course reviewed. Patient with multiple admissions for COPD exacerbation requiring intubations 2 for the last 6 months was admitted for acute on chronic hypercapnic respiratory failure secondary to another bout of COPD exacerbation. She was persistently hypercapnic with encephalopathy yesterday requiring continuous BiPAP. Today, she was seen sitting up by bedside and was completely alert and oriented 3. Denies any chest pain, palpitation, or worsening cough. - Exam Vitals: Temp Pulse Resp BP Pulse Ox 97.7 F 48 20 140/77 99 04/25/19 07:20 04/25/19 07:20 04/25/19 10:30 04/25/19 07:20 04/25/19 10:30 Exam: General: A&O x 3, mild distress Respiratory: Diminished lung sounds bilaterally with scattered wheezing. Cardiovascular: Regular rate and regular rhythm GI: Soft, nondistended, normal bowel sounds. Extremities:No joint swelling or tenderness noted. Neurological: no focal deficits. - Assessment and Plan (1) Acute on chronic respiratory failure with hypoxia and hypercapnia Current Visit: Yes Status: Acute (2) Acute exacerbation of chronic obstructive airways disease Current Visit: Yes Status: Acute (3) Metabolic encephalopathy Current Visit: Yes Status: Acute (4) Hypothyroidism Current Visit: Yes Status: Chronic (5) Hypertension Current Visit: Yes Status: Chronic (6) UTI (urinary tract infection) Current Visit: Yes Status: Acute DVT Prophylaxis: On Eliquis - Summary of Assessment and Plan Summary of Assessment and Plan: 73-year-old female with history of COPD on 4 L with multiple admissions requiring intubation for the last several months, rheumatoid arthritis, type II DM, PE, pulmonary hypertension who was admitted for acute on chronic hypercapnic respiratory failure secondary to another bout of COPD exacerbation. She was persistently hypercapnic with encephalopathy requiring continuous BiPAP. Acute on chronic hypercarbic respiratory failure - 2/2 to COPD exacerbation, ABG improved on continuous BiPaP yesterday. - Appreciate pulm input, steroid increased to 60mg Q8 yesterday - continue D5 azithromycin and schedueld bronchodilators - Given her recurrent admissions requiring intubations 2, will consult palliative care UTI due to Escherichia coli: - Completed 3 days of IV Rocephin, will discontinue today IDDM: - Linagliptin and metformin on hold - Continue low-dose sliding scale, add basal insulin HFpEF: doesn't look overly volume overloaded but given her tenuous respiratory condition and mild hyperkalemia of 5.5, will give one-time dose of IV Lasix 40 mg today HTN: Continue home medications History of PE: Continue Eliquis Hypothyroidism: Continue levothyroxine History of back surgery: Continue pain medication - Time Spent with Patient Total time spent is greater than 50% in coordination of care (as documented) at patient's floor/unit and/or counseling patient: 25 - 35 minutes Plan of Care Discussed with: [employer] consultant (Discussed with palliative care) - Is Patient Candidate for Palliative Care Consider palliative consult if one or more criteria present:: Multiple recent admissions; same symptoms/problem and no prior consult Internal Medicine: Result - Labs CBC & Chem 7: 04/25/19 01:36 04/25/19 01:36 Labs: Short CBC 04/25/19 Range/Units 01:36 WBC 5.9 (4.3-11.1) K/mcL Hgb 9.0 L (11.5-15.4) g/dL Hct 29.6 L (35.3-44.9) % Plt Count 117 L (140-400) K/mcL BMP 04/25/19 01:36 Sodium 144 Potassium 5.5 H Chloride 95 L Carbon Dioxide 44 H* BUN 45 H Creatinine 0.84 Glucose 129 H Calcium 9.0 - ABG Interpretation ABG results: ABG ABG pH 7.32 pH Units (7.32-7.45) 04/25/19 04:47 ABG pCO2 103 mmHg (35-45) H* 04/25/19 04:47 ABG pO2 126 mmHg (85-104) H 04/25/19 04:47 ABG O2 Saturation 98 % (95-98) 04/25/19 04:47 Consult Discharge Plan - Plan Referrals: Jose G Toure MD [Non-Partnered Physician] - 05/07/19 11:00 am Jose F Salinas MD [Partnered Physician] - (4) Hypothyroidism Qualifiers: Hypothyroidism type: unspecified Qualified Code(s): E03.9 - Hypothyroidism, unspecified (5) Hypertension Qualifiers: Hypertension type: essential hypertension Qualified Code(s): I10 - Essential (primary) hypertension (6) UTI (urinary tract infection) Qualifiers: Urinary tract infection type: acute cystitis Hematuria presence: with hemat uria Qualified Code(s): N30.01 - Acute cystitis with hematuria
--- NOTE | 2019-04-25 15:13 | Palliative - Consult Note ---
<Chica Madrigal B - Last Filed: 04/25/19 16:20> Date of Encounter: 04/25/19 Time of Encounter: 14:30 - Assessment and Plan (1) Goals of care, counseling/discussion Current Visit: No Status: Acute Assessment and plan: Had discussion regarding patient's goals of care as per HPI. Patient at this time has a goal to return to [place] but does also want to make sure that her daughter is able to have stable living as well. Had discussion regarding patients code status, on examination of the chart patient had signed a DNR- CCA/CCI in December 2018, however at this time the patient would like to be intubated in situations where it would be used temporarily to help her improve an acute exacerbation, she would not want to stay intubated to prolong her life if she would be unable to come off of intubation. She does express a desire to not have CPR. Patient signed a DNR-CCA form today, and her code status was changed to DNR-CCA. Also a call was placed to patient;s daughter to schedule a goals of care conversation. Patient's daughter plans to have a meeting tomorrow for a goals of care conversation.Patient's daughter was able to be reached at the home phone number in the chart. Daughter also gave the following cell number: [phone] (2) Acute exacerbation of chronic obstructive airways disease Current Visit: Yes Status: Acute (3) Acute respiratory failure with hypoxia and hypercapnia Current Visit: Yes Status: Resolved Palliative-CN HPI - Data of Consult Consult date: 04/25/19 Requesting Physician: Humberto Brody MD Primary Care Provider: PCP NONE - Consult Narrative Palliative Care/Comfort Measures: Palliative care Reason for consult: Goals of Care conversation History of present illness: Ms. Jhaveri is a 73 year old female with a past medical history of COPD, pulmonary edema, hypothyroidism, DM and hypertension who presented for acute respiratory failure with hypoxia and hypercarbia. Patient was on Bipap when entered the room, and was temporarily changed to NC for conversation, and then placed back on Bipap at the end of the conversation. A goals of care conversation was had with the patient. Discussed with the patient regarding her diagnosis of COPD and her understanding of her current disease process. Also discussed patient's current living situation where she has been in the hospital multiple times recently, and concerns regarding her housing stability as she currently moves from [place], to home with her daughter and then to the hospital for medical decompensation. The patient is understanding that she needs a stable environment for her to be able to take care of herself medically however she has concerns about her daughter and grandson to have a place to live. She does express that she likes it when she is a [place]. Also had a conversation regarding patient's code status. Patient reports that she would not like to have CPR done. However she reports that she would like intubation if she would be able to come off of being intubated like she has during past hospital stays. She does say that she would not like to stay on intubation if she became dependent on it. Also discussed having a family meeting to discuss goals of care, patient is ok with this, but is not sure if she has the correct number for her daughter. CC: Humberto Brody MD - Time Spent with Patient Time: Total time spent is greater than 50% in coordination of care (as documented) at patient's floor/unit and/or counseling patient: Time with patient: 45 minutes Past Med Surg Social Fam HX - Past Medical History Medical history: COPD, CVA, diabetes, hyperlipidemia, hypertension, pulmonary embolus, thyroid disease, TIA, other Additional medical history: CVA (2015) Psychiatric history: anxiety, depression - Past Surgical History Surgical History: cholecystectomy Additional surgical history: Throat biopsy, back surgery - Social History Smoking Status: Current every day smoker Smokeless Tobacco Status: No Alcohol use: none Drug use: none - Family History Father Family Member Ethnicity: Non- Living Status: Hx Family Cardiac Disorders: Yes (Stroke,) Hx Family Respiratory Disorders: Yes Hx Family Endocrine Disorder: Yes (Diabetes) Mother Adopted: No Living Status: Hx Family Cardiac Disorders: Yes Hx Family Respiratory Disorders: Yes Hx Family Cancer: Yes Hx Family GI Disorders: No Hx Family Endocrine Disorder: No Hx Family Neuromuscular Disorders: No Hx Family Neurologic Disorders: No Hx Family HEENT Disorders: No Hx Family Autoimmune Disorders: No Medications and Allergies Atenolol [Tenormin] 25 mg PO DAILY 11/16/16 [History] Folic Acid 1 mg PO DAILY 11/16/16 [History] Lovastatin [Mevacor] 20 mg PO HS 11/16/16 [History] Potassium Chloride [Klor-Con 10] 10 meq PO BID 11/16/16 [History] Alendronate Sodium [Fosamax] 70 mg PO TU 12/31/16 [History] Escitalopram [Lexapro] 10 mg PO DAILY 08/31/17 [History] Levothyroxine Sodium [Levo-T] 200 mcg PO DAILY 01/02/18 [History] Losartan Potassium [Cozaar] 100 mg PO DAILY 01/02/18 [History] Albuterol Neb [Proventil Neb] 2.5 mg IH Q4H PRN 10/13/18 [History] Docusate [Colace] 100 mg PO BID PRN 10/13/18 [History] Linagliptin [Tradjenta] 5 mg PO DAILY 10/13/18 [History] Aspirin [Adult Aspirin] 81 mg PO DAILY 12/08/18 [History] Acetaminophen [Tylenol] 650 mg PO Q4H PRN 02/02/19 [History] Albuterol Sulfate [Proventil Inhaler] 2 puff IH Q4H PRN 02/02/19 [History] Apixaban [Eliquis] 5 mg PO BID 02/02/19 [History] Ergocalciferol (VITAMIN D2) [Vitamin D2] 50,000 unit PO TU 02/02/19 [History] Fluticasone/Umeclidin/Vilanter [Trelegy Ellipta 100-62.5-25] 1 puff IH DAILY 02/02/19 [History] Furosemide [Lasix] 40 mg PO QAM 02/02/19 [History] Insulin LISPRO [HumaLOG] 0 units SQ ACHS 02/02/19 [History] Ipratropium/Albuterol Sulfate [Iprat-Albut 0.5-3(2.5) mg/3 ml] 3 ml IH Q4H PRN 02/02/19 [History] metFORMIN [Glucophage] 1,500 mg PO QPM 02/02/19 [History] amLODIPine [Norvasc] 5 mg PO DAILY #60 tablet 02/05/19 [Rx] Gabapentin [Neurontin] 300 mg PO HS 04/20/19 [History] Methotrexate [Otrexup] 12.5 mg PO NEGRETE 04/20/19 [History] Oxymetazoline [Afrin] 2 spray NS Q12HR PRN 04/20/19 [History] cloNIDine HCl [CloNIDine HCl] 0.1 mg PO BID 04/20/19 [History] Allergy/AdvReac Type Severity Reaction Status Date / Time No Known Allergies Allergy Verified 02/02/19 09:29 - Constitutional Constitutional ROS PAL: as per HPI - EENT Eyes: as per HPI - Cardiovascular Cardiovascular ROS: as per HPI - Respiratory Respiratory: as per HPI, dyspnea on exertion - Gastrointestinal Gastrointestinal: as per HPI - Musculoskeletal Musculoskeletal ROS IM: as per HPI - Integumentary Additional comments: bleedign at site of left arm IV Hep-lock - Neurological Neurological ROS: as per HPI - Psychiatric Psychiatric general PM: as per HPI Palliative Care-Exam - Constitutional Vitals: Temp Pulse Resp BP Pulse Ox 98.2 F 51 24 132/67 100 04/25/19 11:34 04/25/19 11:34 04/25/19 11:34 04/25/19 11:34 04/25/19 11:34 General appearance: Present: cooperative, no acute distress - Head Head Exam: Present: atraumatic - Eye Eye exam: Present: normal appearance - ENT ENT exam: Present: mucous membranes moist - Respiratory Respiratory exam: Present: decreased breath sounds, CTAB. Absent: rales, rhonchi, wheezes - Cardiovascular Cardiovascular exam: Present: RRR, +S1, +S2 - GI/Abdominal Exam GI/Abdominal exam: Present: normal bowel sounds, soft. Absent: tenderness - Extremities Exam Extremities exam: Absent: pedal edema - Neurological Exam Neurological exam: Present: oriented X3. Absent: speech deficit Internal Medicine - CN: Reslt - Labs CBC & Chem 7: 04/25/19 01:36 04/25/19 01:36 Labs: Short CBC 04/25/19 Range/Units 01:36 WBC 5.9 (4.3-11.1) K/mcL Hgb 9.0 L (11.5-15.4) g/dL Hct 29.6 L (35.3-44.9) % Plt Count 117 L (140-400) K/mcL BMP 04/25/19 01:36 Sodium 144 Potassium 5.5 H Chloride 95 L Carbon Dioxide 44 H* BUN 45 H Creatinine 0.84 Glucose 129 H Calcium 9.0 - ABG Interpretation ABG results: ABG ABG pH 7.32 pH Units (7.32-7.45) 04/25/19 04:47 ABG pCO2 103 mmHg (35-45) H* 04/25/19 04:47 ABG pO2 126 mmHg (85-104) H 04/25/19 04:47 ABG O2 Saturation 98 % (95-98) 04/25/19 04:47 Consult Discharge Plan - Plan Referrals: Jose G Toure MD [Non-Partnered Physician] - 05/07/19 11:00 am Jose F Salinas MD [Partnered Physician] - 05/23/19 8:30 am Palliative Quality Palliative Quality: Screen for Code Status: Yes, Screen for Goals of Care: Yes, Screen for Pain: NA, Screen for Nausea/Vomitting: NA Code Status: 04/21/19 03:00 Resuscitation Status: Active [RES] Routine Comment: Resuscitation Status: Full Code Palliative Scale - Palliative Performance Scale How ambulatory is this patient?: Mainly sit / lie What is patient's level of activity and evidence of disease?: Unable hobby/housework, Significant disease How much self-care assistance does patient require?: Considerable assistance required How much oral intake does the patient have?: Normal What is this patient's level of consciousness?: Full Palliative Performance Score: 50 % <CarlosCecelia - Last Filed: 04/26/19 11:15> Date of Encounter: 04/26/19 Palliative-CN HPI - Data of Consult Requesting Physician: Humberto Brody MD Primary Care Provider: PCP NONE - Consult Narrative History of present illness: Ms. Jhaveri is a 73 year old female CC: Humberto Brody MD - Time Spent with Patient Time: Total time spent is greater than 50% in coordination of care (as documented) at patient's floor/unit and/or counseling patient: Palliative Care-Exam - Constitutional Vitals: Temp Pulse Resp BP Pulse Ox 98.0 F 55 28 132/75 100 04/25/19 16:14 04/25/19 16:14 04/25/19 16:14 04/25/19 16:14 04/25/19 16:14 Internal Medicine - CN: Reslt - Labs CBC & Chem 7: 04/26/19 04:11 04/26/19 04:11 Labs: Short CBC 04/25/19 Range/Units 01:36 WBC 5.9 (4.3-11.1) K/mcL Hgb 9.0 L (11.5-15.4) g/dL Hct 29.6 L (35.3-44.9) % Plt Count 117 L (140-400) K/mcL BMP 04/25/19 01:36 Sodium 144 Potassium 5.5 H Chloride 95 L Carbon Dioxide 44 H* BUN 45 H Creatinine 0.84 Glucose 129 H Calcium 9.0 - ABG Interpretation ABG results: ABG ABG pH 7.32 pH Units (7.32-7.45) 04/25/19 04:47 ABG pCO2 103 mmHg (35-45) H* 04/25/19 04:47 ABG pO2 126 mmHg (85-104) H 04/25/19 04:47 ABG O2 Saturation 98 % (95-98) 04/25/19 04:47 - Attending Attestation I performed a history and physical examination of the patient and discussed his management with the resident. I reviewed the residents note and agree with the documented findings and plan of care. Patient decided for DNRCCA, but wants a trial of intubation if necessary. However, she wants no long-term life support, trach or PEG. PC scheduled meeting with daughter tomorrow at 12pm, I will be beneficiary for SW to be present. Palliative Quality Code Status: 04/21/19 03:00 Resuscitation Status: Active [RES] Routine Comment: Resuscitation Status: Full Code 04/25/19 15:29 CODE [Resuscitation Status: Active] [RES] Routine Comment: Resuscitation Status: DNR-Comfort Care-Arrest
[2019-04-25] MEDS: Gabapentin 300 MG CAPSULE PO SCH (20:39)
[2019-04-25] MEDS: traMADol 50 MG TABLET PO PRN (20:42)
[2019-04-25] MEDS ORDERED: Insulin DETEMIR 100 UNIT/ML X5UNITS SQ SCH (21:00)
[2019-04-26] MEDS: Ipratropium/Albuterol Neb 3 ML IH SCH ×4 (04:03→22:21)
[2019-04-26] MEDS: methylPREDNISolone 125 MG/2 ML VIAL IVP SCH ×3 (04:57→21:18)
[2019-04-26] MEDS ORDERED: Menthol 9.1 MG LOZENGE PO PRN (05:20)
[2019-04-26 05:25] LABS: Basophils % 0.2 %; Hematocrit 30.2 % (35.3-44.9); Hemoglobin 9.2 g/dL (11.5-15.4); Immature Granulocytes % 0.5 % (0-4); Lymphocytes # 0.3 K/mcL (0.6-4.6); Lymphocytes % 5.2 %; Mean Corpuscular HGB Conc 30.5 g/dL (31.6-35.5); Mean Corpuscular Hemoglobin 29.2 pg (28.0-33.3); Mean Corpuscular Volume 95.9 fL (83.0-100.0); Mean Platelet Volume 10.8 fL (9.4-12.4); Monocytes # 0.1 K/mcL (0.0-1.3); Monocytes % 1.9 %; Platelet Count 171 K/mcL (140-400); Red Blood Count 3.15 M/mcL (3.82-4.97); Red Cell Distribution Width 14.2 % (11.5-14.5); Segmented Neutrophils % 92.2 %; White Blood Count 6.5 K/mcL (4.3-11.1)
[2019-04-26 05:52] LABS: BUN/Creatinine Ratio 59 (6-26); Blood Urea Nitrogen 53 mg/dL (8-23); Calcium 9.4 mg/dL (8.6-10.3); Carbon Dioxide > 45 mEq/L (23-29); Chloride 92 mEq/L (98-107); Glucose 211 mg/dL (70-105); Magnesium 2.2 mg/dL (1.6-2.6); Osmolality,Calculated 317 (280-300); Potassium 5.2 mEq/L (3.5-5.1); Sodium 143 mEq/L (136-145); eGFR For African Americans > 60 (> 60); eGFR For Non-African Americans > 60 (> 60)
--- NOTE | 2019-04-26 08:36 | Pulmonology Progress Note ---
Date of Encounter: 04/26/19 Assessment and Plan (1) Acute on chronic respiratory failure with hypoxia and hypercapnia Current Visit: Yes Status: Acute Patient has multiple admissions for similar presentation over the past several years. Pulmonary function test performed previously revealed severe gas exchange impairment with severe obstructive lung disease. Secondary to roni ent's significant history of tobacco abuse. Patient has recently resumed smoking though she has been counseled multiple times in the past to stop. Previous CT chest revealed severe emphysematous changes. Chest x-ray on admission this time reveals redemonstration of emphysema with possible trace l eft effusions and what appears to be mild interstitial edema, in addition to enlarged main pulmonary arteries suggesting possible underlying pulmonary hypertension. Patient was started on IV steroids and admitted to the ICU with continuous BiPAP initiated secondary to hypercarbia and somnolence. Patient was switched to oral steroids yesterday continued on azithromycin and scheduled bronchodilators. Today patient's CO2 continues to remain significantly elevated, 1074 readings despite continued BiPAP. Acute decompensated heart diastolic heart failure is complicating treatment plan as patient would likely benefit from diuresis thus improving her respiratory status and decreasing her pulmonary edema, however her GFR has declined recently, her BUN continues to rise, creatinine is within normal limits but has increased since admission from 0.79-1.19. Plan: -Solu-Medrol 60 mg every 8 hours -Continue scheduled bronchodilators -Transfer to stepdown unit for closer monitoring -We will give one-time dose IV Lasix 40 -Continue azithromycin -Patient suffers from severe end-stage emphysematous changes with multiple recurrent hospital admissions for acute on chronic respiratory failure, would likely benefit from palliative consult to discuss ongoing goals of care (2) Acute exacerbation of chronic obstructive airways disease Current Visit: Yes Status: Acute Continue steroids Continuous BiPAP Continuous oximetry Continue azithromycin and scheduled bronchodilators Rest of plan as above (3) Acute on chronic diastolic (congestive) heart failure Current Visit: No Status: Acute Known history of heart failure with preserved ejection fraction Plan acute decompensation, chest x-ray with evidence of pulmonary edema and pulmonary hypertension Her home dose of Lasix by mouth 40 mg daily has been resumed Patient is having mild elevation in her serum creatinine and decreasing GFR however would likely benefit from increased diuresis as this is likely contributing to her significant respiratory distress Subjective Principal diagnosis: Respiratory Failure Interval history: Patient was seen and examined at bedside. Patient continues to make significant improvement. Objective PUL Vital signs: Last Vital Signs Temp 97.5 F L 04/26/19 07:15 Pulse 56 04/26/19 07:15 Resp 28 04/26/19 07:15 BP 156/73 04/26/19 07:15 Pulse Ox 95 04/26/19 07:15 Results - Laboratory Findings CBC and BMP: 04/26/19 04:11 04/26/19 04:11 ABG ABG pH 7.32 pH Units (7.32-7.45) 04/25/19 04:47 ABG pCO2 103 mmHg (35-45) H* 04/25/19 04:47 ABG pO2 126 mmHg (85-104) H 04/25/19 04:47 ABG O2 Saturation 98 % (95-98) 04/25/19 04:47 Abnormal lab findings: Abnormal lab results RBC 3.15 M/mcL (3.82-4.97) L 04/26/19 04:11 Hgb 9.2 g/dL (11.5-15.4) L 04/26/19 04:11 Hct 30.2 % (35.3-44.9) L 04/26/19 04:11 MCHC 30.5 g/dL (31.6-35.5) L 04/26/19 04:11 RDW 14.6 % (11.5-14.5) H 04/21/19 03:35 Plt Count 117 K/mcL (140-400) L 04/25/19 01:36 Neutrophils # 9.3 K/mcL (1.6-8.9) H 04/21/19 03:35 Lymphocytes # 0.3 K/mcL (0.6-4.6) L 04/26/19 04:11 ABG pH 7.27 pH Units (7.32-7.45) L 04/24/19 13:33 ABG pCO2 103 mmHg (35-45) H* 04/25/19 04:47 ABG pO2 126 mmHg (85-104) H 04/25/19 04:47 ABG HCO3 53 mEq/L (21-27) H 04/25/19 04:47 ABG Total CO2 > 50 mEq/L (20-26) H 04/25/19 04:47 ABG Base Excess 23 mEq/L (-2 to 3) H 04/25/19 04:47 Potassium 5.2 mEq/L (3.5-5.1) H 04/26/19 04:11 Chloride 92 mEq/L (98-107) L 04/26/19 04:11 Carbon Dioxide > 45 mEq/L (23-29) H* 04/26/19 04:11 BUN 53 mg/dL (8-23) H 04/26/19 04:11 Est GFR ( Amer) 57 (> 60) L 04/24/19 01:47 Est GFR (Non-Af Amer) 47 (> 60) L 04/24/19 01:47 BUN/Creatinine Ratio 59 (6-26) H 04/26/19 04:11 Glucose 211 mg/dL (70-105) H 04/26/19 04:11 POC Glucose 194 mg/dL (70-99) H 04/25/19 20:06 Calculated Osmolality 317 (280-300) H 04/26/19 04:11 Total Bilirubin 0.2 mg/dL (0.3-1.0) L 04/21/19 03:35 AST 9 Units/L (13-39) L 04/21/19 03:35 ALT < 3 Units/L (7-52) L 04/21/19 03:35 B-Natriuretic Peptide 431 pg/mL (Less than 100) H 04/20/19 22:02 TSH 7.795 mcIU/mL (0.340-5.600) H 04/20/19 22:02 Urine Clarity Cloudy (Clear) A 04/20/19 21:29 Urine Protein 100 mg/dL (Neg-Trace) H 04/20/19 21:29 Urine Blood Large (Negative) H 04/20/19 21:29 Ur Leukocyte Esterase Moderate (Negative) H 04/20/19 21:29 Urine Microscopic RBC TNTC per hpf (0-3) H 04/20/19 21:29 Urine Microscopic WBC 50-100 per hpf (0-3) H 04/20/19 21:29 Urine Bacteria Many per hpf (None-Few) H 04/20/19 21:29 Ur Culture Indicated? YES (NO) A 04/20/19 21:29 - Microbiology Findings Microbiology Findings: Microbiology, Last 48 Hours 04/20/19 22:02 Blood Culture - Final Peripheral Venipuncture No growth. Final report. 04/20/19 22:02 Blood Culture - Final Peripheral Venipuncture No growth. Final report. - Clinical Findings Intake & Output: Intake & Output 04/25/19 04/26/19 04/26/19 23:59 07:59 15:59 Weight 72.2 kg Consult Discharge Plan - Plan Referrals: Jose G Toure MD [Non-Partnered Physician] - 05/07/19 11:00 am Jose F Salinas MD [Partnered Physician] - 05/23/19 8:30 am
[2019-04-26] MEDS: Insulin LISPRO 300 UNITS/3 ML VIAL SQ SCH ×4 (09:11→21:18)
[2019-04-26] MEDS: Apixaban 5 MG TABLET PO SCH ×2 (09:11→21:17)
[2019-04-26] MEDS: amLODIPine 5 MG TABLET PO SCH (09:11)
[2019-04-26] MEDS: Nicotine 21 MG PATCH.TD24 TD SCH (09:11)
[2019-04-26] MEDS: Folic Acid 1 MG TABLET PO SCH (09:11)
[2019-04-26] MEDS: cloNIDine HCl 0.1 MG TABLET PO SCH ×2 (09:11→21:17)
[2019-04-26] MEDS: Aspirin Enteric Coated 81 MG Tablet PO SCH (09:11)
[2019-04-26] MEDS ORDERED: Furosemide 20 MG/2 ML VIAL IVP ONE (10:46)
--- NOTE | 2019-04-26 10:50 | Internal Med Progress Note ---
Hospitalist Progress Note - Encounter Date of Encounter: 04/26/19 Time of Encounter: 08:45 - Subjective Interval History: Reports ongoing improvement in her breathing. Denies any chest pain. No nausea/vomiting or fever. - Exam Vitals: Temp Pulse Resp BP Pulse Ox 97.5 F L 56 28 156/73 95 04/26/19 07:15 04/26/19 07:15 04/26/19 07:15 04/26/19 07:15 04/26/19 07:15 Exam: General: A&O x 3, mild distress Respiratory: Diminished lung sounds bilaterally with scattered wheezing. Cardiovascular: Regular rate and regular rhythm GI: Soft, nondistended, normal bowel sounds. Extremities:No joint swelling or tenderness noted. Neurological: no focal deficits. - Assessment and Plan (1) Acute on chronic respiratory failure with hypoxia and hypercapnia Current Visit: Yes Status: Acute (2) Acute exacerbation of chronic obstructive airways disease Current Visit: Yes Status: Acute (3) Metabolic encephalopathy Current Visit: Yes Status: Acute (4) Hypothyroidism Current Visit: Yes Status: Chronic (5) Hypertension Current Visit: Yes Status: Chronic (6) UTI (urinary tract infection) Current Visit: Yes Status: Acute DVT Prophylaxis: On Eliquis - Summary of Assessment and Plan Summary of Assessment and Plan: 73-year-old female with history of COPD on 4L with multiple admissions requiring intubation for the last several months, rheumatoid arthritis, type II DM, PE, pu lmonary hypertension who was admitted for acute on chronic hypercapnic respiratory failure secondary to another bout of COPD exacerbation. She was persistently hypercapnic with encephalopathy requiring continuous BiPAP. Acute on chronic hypercarbic respiratory failure - 2/2 to COPD exacerbation, ABG improved on continuous BiPaP - Appreciate pulm input, steroid increased to 60mg Q8 on 04/24. Will continue for today and start tapering from tomorrow - completed 5 days of azithromycin. Continue schedueld bronchodilators - palliative care input appreciated UTI due to Escherichia coli: - Completed 3 days of IV Rocephin IDDM: - Linagliptin and metformin on hold - Continue low-dose sliding scale, will increase basal insulin to 18U HFpEF: doesn't look overly volume overloaded but given her tenuous respiratory condition, will intermittently dose lasix HTN: Continue home medications History of PE: Continue Eliquis Hypothyroidism: Continue levothyroxine History of back surgery: Continue pain medication - Time Spent with Patient Total time spent is greater than 50% in coordination of care (as documented) at patient's floor/unit and/or counseling patient: 25 - 35 minutes Internal Medicine: Result - Labs CBC & Chem 7: 04/26/19 04:11 04/26/19 04:11 Labs: Short CBC 04/26/19 Range/Units 04:11 WBC 6.5 (4.3-11.1) K/mcL Hgb 9.2 L (11.5-15.4) g/dL Hct 30.2 L (35.3-44.9) % Plt Count 171 (140-400) K/mcL Neutrophils # 6.0 (1.6-8.9) K/mcL BMP 04/26/19 04:11 Sodium 143 Potassium 5.2 H Chloride 92 L Carbon Dioxide > 45 H* BUN 53 H Creatinine 0.90 Glucose 211 H Calcium 9.4 - ABG Interpretation ABG results: ABG ABG pH 7.32 pH Units (7.32-7.45) 04/25/19 04:47 ABG pCO2 103 mmHg (35-45) H* 04/25/19 04:47 ABG pO2 126 mmHg (85-104) H 04/25/19 04:47 ABG O2 Saturation 98 % (95-98) 04/25/19 04:47 Consult Discharge Plan - Plan Referrals: Jose G Toure MD [Non-Partnered Physician] - 05/07/19 11:00 am Jose F Salinas MD [Partnered Physician] - 05/23/19 8:30 am (4) Hypothyroidism Qualifiers: Hypothyroidism type: unspecified Qualified Code(s): E03.9 - Hypothyroidism, unspecified (5) Hypertension Qualifiers: Hypertension type: essential hypertension Qualified Code(s): I10 - Essential (primary) hypertension (6) UTI (urinary tract infection) Qualifiers: Urinary tract infection type: acute cystitis Hematuria presence: with hematuria Qualified Code(s): N30.01 - Acute cystitis with hematuria
[2019-04-26] MEDS: traMADol 50 MG TABLET PO PRN (11:29)
--- NOTE | 2019-04-26 12:19 | Palliative Progress Note ---
Date of Encounter: 04/26/19 Time of Encounter: 10:00 - Assessment and plan (1) Goals of care, counseling/discussion Current Visit: No Status: Acute Assessment and plan: Patient yesterday decided for DNRCCA. Meeting to be held today with pt's daughter to define further goals of care and disposition. SUMANTH Jerardo is aware. (2) Acute exacerbation of chronic obstructive airways disease Current Visit: Yes Status: Acute Assessment and plan: management per primary team - Time Spent With Patient Total time spent is greater than 50% in coordination of care (as documented) at patient's floor/unit and/or counseling patient: less than 15 minutes - Subjective Interval history: Patient today was AAOx3, sitting on bed, nc in place on 4L. She appeared comfortable, using less accessory muscles. She stated to be feeling better. She has spoken with her daughter and is aware of the meeting scheduled for later today. - Constitutional Vitals: Abnormal lab results RBC 3.15 M/mcL (3.82-4.97) L 04/26/19 04:11 Hgb 9.2 g/dL (11.5-15.4) L 04/26/19 04:11 Hct 30.2 % (35.3-44.9) L 04/26/19 04:11 MCHC 30.5 g/dL (31.6-35.5) L 04/26/19 04:11 RDW 14.6 % (11.5-14.5) H 04/21/19 03:35 Plt Count 117 K/mcL (140-400) L 04/25/19 01:36 Neutrophils # 9.3 K/mcL (1.6-8.9) H 04/21/19 03:35 Lymphocytes # 0.3 K/mcL (0.6-4.6) L 04/26/19 04:11 ABG pH 7.27 pH Units (7.32-7.45) L 04/24/19 13:33 ABG pCO2 103 mmHg (35-45) H* 04/25/19 04:47 ABG pO2 126 mmHg (85-104) H 04/25/19 04:47 ABG HCO3 53 mEq/L (21-27) H 04/25/19 04:47 ABG Total CO2 > 50 mEq/L (20-26) H 04/25/19 04:47 ABG Base Excess 23 mEq/L (-2 to 3) H 04/25/19 04:47 Potassium 5.2 mEq/L (3.5-5.1) H 04/26/19 04:11 Chloride 92 mEq/L (98-107) L 04/26/19 04:11 Carbon Dioxide > 45 mEq/L (23-29) H* 04/26/19 04:11 BUN 53 mg/dL (8-23) H 04/26/19 04:11 Est GFR ( Amer) 57 (> 60) L 04/24/19 01:47 Est GFR (Non-Af Amer) 47 (> 60) L 04/24/19 01:47 BUN/Creatinine Ratio 59 (6-26) H 04/26/19 04:11 Glucose 211 mg/dL (70-105) H 04/26/19 04:11 POC Glucose 194 mg/dL (70-99) H 04/25/19 20:06 Calculated Osmolality 317 (280-300) H 04/26/19 04:11 Total Bilirubin 0.2 mg/dL (0.3-1.0) L 04/21/19 03:35 AST 9 Units/L (13-39) L 04/21/19 03:35 ALT < 3 Units/L (7-52) L 04/21/19 03:35 B-Natriuretic Peptide 431 pg/mL (Less than 100) H 04/20/19 22:02 TSH 7.795 mcIU/mL (0.340-5.600) H 04/20/19 22:02 Urine Clarity Cloudy (Clear) A 04/20/19 21:29 Urine Protein 100 mg/dL (Neg-Trace) H 04/20/19 21:29 Urine Blood Large (Negative) H 04/20/19 21:29 Ur Leukocyte Esterase Moderate (Negative) H 04/20/19 21:29 Urine Microscopic RBC TNTC per hpf (0-3) H 04/20/19 21:29 Urine Microscopic WBC 50-100 per hpf (0-3) H 04/20/19 21:29 Urine Bacteria Many per hpf (None-Few) H 04/20/19 21:29 Ur Culture Indicated? YES (NO) A 04/20/19 21:29 Exam: General appearance: Present: cooperative, no acute distress - Head Head Exam: Present: atraumatic - Eye Eye exam: Present: normal appearance - ENT ENT exam: Present: mucous membranes moist - Respiratory Respiratory exam: Present: decreased breath sounds, CTAB. Absent: rales, rhonchi, wheezes - Cardiovascular Cardiovascular exam: Present: RRR, +S1, +S2 - GI/Abdominal Exam GI/Abdominal exam: Present: normal bowel sounds, soft. Absent: tenderness - Extremities Exam Extremities exam: Absent: pedal edema - Neurological Exam Neurological exam: Present: oriented X3. Absent: speech deficit Palliative Quality Palliative Quality: Screen for Code Status: Yes, Screen for Goals of Care: Yes, Screen for Pain: NA, Screen for Nausea/Vomitting: NA Code Status: 04/21/19 03:00 Resuscitation Status: Active [RES] Routine Comment: Resuscitation Status: Full Code 04/25/19 15:29 CODE [Resuscitation Status: Active] [RES] Routine Comment: Resuscitation Status: DNR-Comfort Care-Arrest - Labs CBC & Chem 7: 04/26/19 04:11 04/26/19 04:11 Labs: Laboratory Results - last 24 hr 04/25/19 04/25/19 04/25/19 07:24 11:33 11:34 WBC RBC Hgb Hct MCV MCH MCHC RDW Plt Count MPV Immature Gran % Seg Neutrophils % Lymphocytes % Monocytes % Eosinophils % Basophils % Neutrophils # Lymphocytes # Monocytes # Eosinophils # Basophils # Sodium Potassium Chloride Carbon Dioxide BUN Creatinine Est GFR ( Amer) Est GFR (Non-Af Amer) BUN/Creatinine Ratio Glucose POC Glucose 220 H 424 H* 416 H* Calculated Osmolality Calcium Magnesium 04/25/19 04/25/19 04/26/19 16:18 20:06 04:11 WBC 6.5 RBC 3.15 L Hgb 9.2 L Hct 30.2 L MCV 95.9 MCH 29.2 MCHC 30.5 L RDW 14.2 Plt Count 171 MPV 10.8 Immature Gran % 0.5 Seg Neutrophils % 92.2 Lymphocytes % 5.2 Monocytes % 1.9 Eosinophils % 0.0 Basophils % 0.2 Neutrophils # 6.0 Lymphocytes # 0.3 L Monocytes # 0.1 Eosinophils # 0.0 Basophils # 0.0 Sodium Potassium Chloride Carbon Dioxide BUN Creatinine Est GFR ( Amer) Est GFR (Non-Af Amer) BUN/Creatinine Ratio Glucose POC Glucose 288 H 194 H Calculated Osmolality Calcium Magnesium 04/26/19 04:11 WBC RBC Hgb Hct MCV MCH MCHC RDW Plt Count MPV Immature Gran % Seg Neutrophils % Lymphocytes % Monocytes % Eosinophils % Basophils % Neutrophils # Lymphocytes # Monocytes # Eosinophils # Basophils # Sodium 143 Potassium 5.2 H Chloride 92 L Carbon Dioxide > 45 H* BUN 53 H Creatinine 0.90 Est GFR ( Amer) > 60 Est GFR (Non-Af Amer) > 60 BUN/Creatinine Ratio 59 H Glucose 211 H POC Glucose Calculated Osmolality 317 H Calcium 9.4 Magnesium 2.2 - ABG Interpretation ABG results: ABG ABG pH 7.32 pH Units (7.32-7.45) 04/25/19 04:47 ABG pCO2 103 mmHg (35-45) H* 04/25/19 04:47 ABG pO2 126 mmHg (85-104) H 04/25/19 04:47 ABG O2 Saturation 98 % (95-98) 04/25/19 04:47 Palliative Scale - Palliative Performance Scale How ambulatory is this patient?: Mainly sit / lie What is patient's level of activity and evidence of disease?: Unable hobby/housework, Significant disease How much self-care assistance does patient require?: Considerable assistance required How much oral intake does the patient have?: Normal What is this patient's level of consciousness?: Full Palliative Performance Score: 50 % Consult Discharge Plan - Plan Referrals: Jose G Toure MD [Non-Partnered Physician] - 05/07/19 11:00 am Jose F Salinas MD [Partnered Physician] - 05/23/19 8:30 am
[2019-04-26] MEDS: Insulin DETEMIR 100 UNIT/ML X5UNITS SQ SCH (21:17)
[2019-04-26] MEDS: Gabapentin 300 MG CAPSULE PO SCH (21:17)
[2019-04-27] MEDS ORDERED: Insulin Human Regular 10 UNIT in 0.9 % Sodium Chloride 10 ML IV ONE (01:20)
[2019-04-27] MEDS: Ipratropium/Albuterol Neb 3 ML IH SCH ×4 (04:29→22:17)
[2019-04-27] MEDS: methylPREDNISolone 125 MG/2 ML VIAL IVP SCH (06:07)
[2019-04-27 06:31] LABS: Hematocrit 28.2 % (35.3-44.9); Hemoglobin 8.9 g/dL (11.5-15.4); Immature Granulocytes % 0.2 % (0-4); Lymphocytes # 0.4 K/mcL (0.6-4.6); Lymphocytes % 8.9 %; Mean Corpuscular HGB Conc 31.6 g/dL (31.6-35.5); Mean Corpuscular Hemoglobin 29.7 pg (28.0-33.3); Mean Platelet Volume 10.9 fL (9.4-12.4); Monocytes # 0.1 K/mcL (0.0-1.3); Monocytes % 2.9 %; Platelet Count 159 K/mcL (140-400); White Blood Count 4.5 K/mcL (4.3-11.1)
[2019-04-27 07:07] LABS: BUN/Creatinine Ratio 53 (6-26); Blood Urea Nitrogen 42 mg/dL (8-23); Calcium 8.9 mg/dL (8.6-10.3); Carbon Dioxide > 45 mEq/L (23-29); Chloride 91 mEq/L (98-107); Glucose 212 mg/dL (70-105); Magnesium 2.3 mg/dL (1.6-2.6); Osmolality,Calculated 311 (280-300); Sodium 142 mEq/L (136-145); eGFR For African Americans > 60 (> 60); eGFR For Non-African Americans > 60 (> 60)
[2019-04-27] MEDS: Aspirin Enteric Coated 81 MG Tablet PO SCH (08:48)
[2019-04-27] MEDS: amLODIPine 5 MG TABLET PO SCH (08:48)
[2019-04-27] MEDS: cloNIDine HCl 0.1 MG TABLET PO SCH ×2 (08:48→21:28)
[2019-04-27] MEDS: Nicotine 21 MG PATCH.TD24 TD SCH (08:48)
[2019-04-27] MEDS: Apixaban 5 MG TABLET PO SCH ×2 (08:48→21:28)
[2019-04-27] MEDS: Folic Acid 1 MG TABLET PO SCH (08:48)
[2019-04-27] MEDS: Insulin LISPRO 300 UNITS/3 ML VIAL SQ SCH ×4 (08:51→21:28)
[2019-04-27] MEDS: MethylPREDNISolone 40 MG/ML VIAL IVP SCH ×2 (09:15→17:16)
--- NOTE | 2019-04-27 11:08 | Internal Med Progress Note ---
Hospitalist Progress Note - Encounter Date of Encounter: 04/27/19 Time of Encounter: 08:30 - Subjective Interval History: Reports that her breathing seems to be close to her baseline. No chest pain, palpitation, or worsening leg swelling. No fever or cough. - Exam Vitals: Temp Pulse Resp BP Pulse Ox 97.8 F 47 21 149/73 98 04/27/19 04:09 04/27/19 07:39 04/27/19 10:45 04/27/19 07:39 04/27/19 10:45 Exam: General: A&O x 3, not in distress Respiratory: Diminished lung sounds bilaterally with minimal wheezing. Cardiovascular: Regular rate and regular rhythm GI: Soft, nondistended, normal bowel sounds. Extremities:No joint swelling or tenderness noted. Neurological: no focal deficits. - Assessment and Plan (1) Acute on chronic respiratory failure with hypoxia and hypercapnia Current Visit: Yes Status: Acute (2) Acute exacerbation of chronic obstructive airways disease Current Visit: Yes Status: Acute (3) Metabolic encephalopathy Current Visit: Yes Status: Acute (4) Hypothyroidism Current Visit: Yes Status: Chronic (5) Hypertension Current Visit: Yes Status: Chronic (6) UTI (urinary tract infection) Current Visit: Yes Status: Acute DVT Prophylaxis: On Eliquis - Summary of Assessment and Plan Summary of Assessment and Plan: 73-year-old female with history of COPD on 4L with multiple admissions requiring intubation for the last several months, rheumatoid arthritis, type II DM, PE, pulmonary hypertension who was admitted for acute on chronic hypercapnic respiratory failure secondary to another bout of COPD exacerbation. She was persistently hypercapnic with encephalopathy requiring continuous BiPAP. Acute on chronic hypercarbic respiratory failure - 2/2 to COPD exacerbation, ABG improved on continuous BiPaP - Appreciate pulm input, steroid increased to 60mg Q8 on 04/24. Will start tapering from today - completed 5 days of azithromycin. Continue schedueld bronchodilators - palliative care input appreciated UTI due to Escherichia coli: - Completed 3 days of IV Rocephin IDDM: - Linagliptin and metformin on hold - Increase to medium-dose sliding scale, continue basal insulin of 18U HFpEF: doesn't look overly volume overloaded but given her tenuous respiratory condition, will keep her on low-dose of maintenance Lasix HTN: Continue home medications History of PE: Continue Eliquis Hypothyroidism: Continue levothyroxine History of back surgery: Continue pain medication Physical deconditioning: PT/OT evaluation today to determine the need for SNF. Discussed with social work nurse and case management - Time Spent with Patient Total time spent is greater than 50% in coordination of care (as documented) at patient's floor/unit and/or counseling patient: 25 - 35 minutes Plan of Care Discussed with: patient Internal Medicine: Result - Labs CBC & Chem 7: 04/27/19 06:18 04/27/19 06:18 Labs: Short CBC 04/27/19 Range/Units 06:18 WBC 4.5 (4.3-11.1) K/mcL Hgb 8.9 L (11.5-15.4) g/dL Hct 28.2 L (35.3-44.9) % Plt Count 159 (140-400) K/mcL Neutrophils # 4.0 (1.6-8.9) K/mcL BMP 04/27/19 06:18 Sodium 142 Potassium 5.0 Chloride 91 L Carbon Dioxide > 45 H* BUN 42 H Creatinine 0.79 Glucose 212 H Calcium 8.9 - ABG Interpretation ABG results: ABG ABG pH 7.32 pH Units (7.32-7.45) 04/25/19 04:47 ABG pCO2 103 mmHg (35-45) H* 04/25/19 04:47 ABG pO2 126 mmHg (85-104) H 04/25/19 04:47 ABG O2 Saturation 98 % (95-98) 04/25/19 04:47 Consult Discharge Plan - Plan Referrals: Jose G Toure MD [Non-Partnered Physician] - 05/07/19 11:00 am Jose F Salinas MD [Partnered Physician] - 05/23/19 8:30 am (4) Hypothyroidism Qualifiers: Hypothyroidism type: unspecified Qualified Code(s): E03.9 - Hypothyroidism, unspecified (5) Hypertension Qualifiers: Hypertension type: essential hypertension Qualified Code(s): I10 - Essential (primary) hypertension (6) UTI (urinary tract infection) Qualifiers: Urinary tract infection type: acute cystitis Hematuria presence: with hematuria Qualified Code(s): N30.01 - Acute cystitis with hematuria
[2019-04-27] MEDS: Furosemide 20 MG TABLET PO SCH (11:49)
[2019-04-27] MEDS ORDERED: Acetaminophen 325 MG TABLET PO PRN (16:01)
[2019-04-27] MEDS: Insulin DETEMIR 100 UNIT/ML X5UNITS SQ SCH (21:28)
[2019-04-27] MEDS: Gabapentin 300 MG CAPSULE PO SCH (21:35)
[2019-04-28] MEDS: Ipratropium/Albuterol Neb 3 ML IH SCH ×4 (04:29→22:00)
[2019-04-28 04:39] LABS: Hematocrit 29.9 % (35.3-44.9); Hemoglobin 9.3 g/dL (11.5-15.4); Mean Corpuscular HGB Conc 31.1 g/dL (31.6-35.5); Mean Corpuscular Hemoglobin 29.1 pg (28.0-33.3); Mean Corpuscular Volume 93.4 fL (83.0-100.0); Mean Platelet Volume 11.2 fL (9.4-12.4); Platelet Count 165 K/mcL (140-400); Red Cell Distribution Width 13.7 % (11.5-14.5); White Blood Count 5.8 K/mcL (4.3-11.1)
[2019-04-28 05:05] LABS: BUN/Creatinine Ratio 52 (6-26); Blood Urea Nitrogen 44 mg/dL (8-23); Calcium 8.7 mg/dL (8.6-10.3); Carbon Dioxide 44 mEq/L (23-29); Chloride 92 mEq/L (98-107); Glucose 151 mg/dL (70-105); Magnesium 2.2 mg/dL (1.6-2.6); Osmolality,Calculated 306 (280-300); Potassium 4.5 mEq/L (3.5-5.1); Sodium 141 mEq/L (136-145); eGFR For African Americans > 60 (> 60); eGFR For Non-African Americans > 60 (> 60)
[2019-04-28] MEDS: MethylPREDNISolone 40 MG/ML VIAL IVP SCH ×2 (05:54→17:37)
[2019-04-28] MEDS: amLODIPine 5 MG TABLET PO SCH (08:27)
[2019-04-28] MEDS: Apixaban 5 MG TABLET PO SCH ×2 (08:27→20:22)
[2019-04-28] MEDS: cloNIDine HCl 0.1 MG TABLET PO SCH ×2 (08:27→20:22)
[2019-04-28] MEDS: Aspirin Enteric Coated 81 MG Tablet PO SCH (08:27)
[2019-04-28] MEDS: Furosemide 20 MG TABLET PO SCH (08:27)
[2019-04-28] MEDS: Insulin LISPRO 300 UNITS/3 ML VIAL SQ SCH ×7 (08:28→20:23)
[2019-04-28] MEDS: Nicotine 21 MG PATCH.TD24 TD SCH (08:28)
[2019-04-28] MEDS: Folic Acid 1 MG TABLET PO SCH (08:28)
--- NOTE | 2019-04-28 10:05 | Event Note ---
Date of Encounter: 04/27/19 Time of Encounter: 10:02 Patient was seen today, stated her breathing is back close to baseline. Daughter did not come for meeting, and per conversation with [employer] TECHNICIAN Jerardo, she is not likely to make any changes to current goals of care and disposition of pt. Patient's goals of care are clear, she is now DNRCCA, and wants to return to SNF for as long as it does not harm her family financially. Palliative care will sign off, please reconsult prn.
--- NOTE | 2019-04-28 11:16 | Internal Med Progress Note ---
Hospitalist Progress Note - Encounter Date of Encounter: 04/28/19 Time of Encounter: 08:45 - Subjective Interval History: States that her breathing appears to be close to her baseline. No chest pain, fever/chills, N/V, or palpitation. - Exam Vitals: Temp Pulse Resp BP Pulse Ox 98.8 F 46 22 152/80 100 04/28/19 07:44 04/28/19 07:44 04/28/19 07:44 04/28/19 07:44 04/28/19 07:44 Exam: General: A&O x 3, not in distress Respiratory: Diminished lung sounds bilaterally, unable to appreciate any wheezing today Cardiovascular: Regular rate and regular rhythm GI: Soft, nondistended, normal bowel sounds. Extremities:No joint swelling or tenderness noted. Neurological: no focal deficits. - Assessment and Plan (1) Acute on chronic respiratory failure with hypoxia and hypercapnia Current Visit: Yes Status: Acute (2) Acute exacerbation of chronic obstructive airways disease Current Visit: Yes Status: Acute (3) Metabolic encephalopathy Current Visit: Yes Status: Acute (4) Hypothyroidism Current Visit: Yes Status: Chronic (5) Hypertension Current Visit: Yes Status: Chronic (6) UTI (urinary tract infection) Current Visit: Yes Status: Acute DVT Prophylaxis: On Eliquis - Summary of Assessment and Plan Summary of Assessment and Plan: 73-year-old female with history of COPD on 4L with multiple admissions requiring intubation for the last several months, rheumatoid arthritis, type II DM, PE, pulmonary hypertension who was admitted for acute on chronic hypercapnic respiratory failure secondary to another bout of COPD exacerbation. She was persistently hypercapnic with encephalopathy requiring continuous BiPAP. Acute on chronic hypercarbic respiratory failure - 2/2 to COPD exacerbation, ABG improved on continuous BiPaP - Appreciate pulm input, steroid increased to 60mg Q8 on 04/24 and started tapering from 04/27. Will switch to PO soon - completed 5 days of azithromycin. Continue schedueld bronchodilators - palliative care input appreciated, DNRCCA UTI due to Escherichia coli: - Completed 3 days of IV Rocephin IDDM: - Linagliptin and metformin on hold - add 5U lispro TIDAC, continue medium-dose sliding scale. Also increase basal insulin to 22U HFpEF: doesn't look overly volume overloaded but given her tenuous respiratory condition, will keep her on low-dose of maintenance Lasix HTN: Continue home medications History of PE: Continue Eliquis Hypothyroidism: Continue levothyroxine History of back surgery: Continue pain medication Physical deconditioning: PT/OT pending, will likely need ECF given her recurrent admissions and profound deconditioning - Time Spent with Patient Total time spent is greater than 50% in coordination of care (as documented) at patient's floor/unit and/or counseling patient: 25 - 35 minutes Plan of Care Discussed with: nurse Internal Medicine: Result - Labs CBC & Chem 7: 04/28/19 03:42 04/28/19 03:42 Labs: Short CBC 04/28/19 Range/Units 03:42 WBC 5.8 (4.3-11.1) K/mcL Hgb 9.3 L (11.5-15.4) g/dL Hct 29.9 L (35.3-44.9) % Plt Count 165 (140-400) K/mcL BMP 04/28/19 03:42 Sodium 141 Potassium 4.5 Chloride 92 L Carbon Dioxide 44 H* BUN 44 H Creatinine 0.85 Glucose 151 H Calcium 8.7 - ABG Interpretation ABG results: ABG ABG pH 7.32 pH Units (7.32-7.45) 04/25/19 04:47 ABG pCO2 103 mmHg (35-45) H* 04/25/19 04:47 ABG pO2 126 mmHg (85-104) H 04/25/19 04:47 ABG O2 Saturation 98 % (95-98) 04/25/19 04:47 Consult Discharge Plan - Plan Referrals: Jose G Toure MD [Non-Partnered Physician] - 05/07/19 11:00 am Jose F Salinas MD [Partnered Physician] - 05/23/19 8:30 am (4) Hypothyroidism Qualifiers: Hypothyroidism type: unspecified Qualified Code(s): E03.9 - Hypothyroidism, unspecified (5) Hypertension Qualifiers: Hypertension type: essential hypertension Qualified Code(s): I10 - Essential (primary) hypertension (6) UTI (urinary tract infection) Qualifiers: Urinary tract infection type: acute cystitis Hematuria presence: with hematuria Qualified Code(s): N30.01 - Acute cystitis with hematuria
[2019-04-28] MEDS: Gabapentin 300 MG CAPSULE PO SCH (20:23)
[2019-04-28] MEDS: Insulin DETEMIR 100 UNIT/ML X5UNITS SQ SCH (20:23)
[2019-04-29] MEDS: Ipratropium/Albuterol Neb 3 ML IH SCH ×4 (04:09→22:25)
[2019-04-29] MEDS: MethylPREDNISolone 40 MG/ML VIAL IVP SCH (05:27)
[2019-04-29] MEDS: Insulin LISPRO 300 UNITS/3 ML VIAL SQ SCH ×7 (08:01→21:34)
[2019-04-29] MEDS: Folic Acid 1 MG TABLET PO SCH (08:02)
[2019-04-29] MEDS: Aspirin Enteric Coated 81 MG Tablet PO SCH (08:02)
[2019-04-29] MEDS: Nicotine 21 MG PATCH.TD24 TD SCH (08:02)
[2019-04-29] MEDS: amLODIPine 5 MG TABLET PO SCH (08:02)
[2019-04-29] MEDS: cloNIDine HCl 0.1 MG TABLET PO SCH ×2 (08:02→20:01)
[2019-04-29] MEDS: Apixaban 5 MG TABLET PO SCH ×2 (08:02→20:01)
[2019-04-29] MEDS: Furosemide 20 MG TABLET PO SCH (08:02)
--- NOTE | 2019-04-29 10:11 | Internal Med Progress Note ---
Hospitalist Progress Note - Encounter Date of Encounter: 04/29/19 Time of Encounter: 08:15 - Subjective Interval History: No acute events overnight. Remains stable on nasal cannula through the day and had worn BiPAP throughout the night. Anxious to return to the [facility] - Exam Vitals: Temp Pulse Resp BP Pulse Ox 98.7 F 53 18 161/71 98 04/29/19 07:21 04/29/19 07:21 04/29/19 07:21 04/29/19 07:21 04/29/19 07:21 Exam: General: A&O x 3, not in distress Respiratory: Diminished lung sounds bilaterally, unable to appreciate any wheezing Cardiovascular: Regular rate and regular rhythm GI: Soft, non-tender, non-distended, normal bowel sounds. Extremities:No joint swelling or tenderness noted. Neurological: no focal deficits. - Assessment and Plan (1) Acute on chronic respiratory failure with hypoxia and hypercapnia Current Visit: Yes Status: Acute (2) Acute exacerbation of chronic obstructive airways disease Current Visit: Yes Status: Acute (3) Metabolic encephalopathy Current Visit: Yes Status: Acute (4) Hypothyroidism Current Visit: Yes Status: Chronic (5) Hypertension Current Visit: Yes Status: Chronic (6) UTI (urinary tract infection) Current Visit: Yes Status: Acute DVT Prophylaxis: On Eliquis - Summary of Assessment and Plan Summary of Assessment and Plan: 73-year-old female with history of COPD on 4L with multiple admissions requiring intubation for the last several months, rheumatoid arthritis, type II DM, PE, pulmonary hypertension who was admitted for acute on chronic hypercapnic respiratory failure secondary to another bout of COPD exacerbation. She was persistently hypercapnic with encephalopathy requiring continuous BiPAP. Acute on chronic hypercarbic respiratory failure - 2/2 to COPD exacerbation, ABG improved on continuous BiPaP - Appreciate pulm input, steroid increased to 60mg Q8 on 04/24 and started tapering from 04/27. Currently on PO 40mg QD (D10 total so far) - completed 5 days of azithromycin. Continue schedueld bronchodilators - palliative care input appreciated, DNRCCA UTI due to Escherichia coli: - Completed 3 days of IV Rocephin IDDM: - Linagliptin and metformin on hold - increasing premeal lispro to 8U TIDAC. Continue medium-dose sliding scale and basal insulin HFpEF: doesn't look overly volume overloaded but given her tenuous respiratory condition, will keep her on low-dose of maintenance Lasix HTN: Continue home medications History of PE: Continue Eliquis Hypothyroidism: Continue levothyroxine History of back surgery: Continue pain medication Physical deconditioning: PT/OT pending, will likely need ECF given her recurrent admissions and profound deconditioning - Time Spent with Patient Total time spent is greater than 50% in coordination of care (as documented) at patient's floor/unit and/or counseling patient: less than 15 minutes Plan of Care Discussed with: patient Internal Medicine: Result - Labs CBC & Chem 7: 04/28/19 03:42 04/28/19 03:42 - ABG Interpretation ABG results: ABG ABG pH 7.32 pH Units (7.32-7.45) 04/25/19 04:47 ABG pCO2 103 mmHg (35-45) H* 04/25/19 04:47 ABG pO2 126 mmHg (85-104) H 04/25/19 04:47 ABG O2 Saturation 98 % (95-98) 04/25/19 04:47 Consult Discharge Plan - Plan Referrals: Jose G Toure MD [Non-Partnered Physician] - 05/07/19 11:00 am Jose F Salinas MD [Partnered Physician] - 05/23/19 8:30 am (4) Hypothyroidism Qualifiers: Hypothyroidism type: unspecified Qualified Code(s): E03.9 - Hypothyroidism, unspecified (5) Hypertension Qualifiers: Hypertension type: essential hypertension Qualified Code(s): I10 - Essential (primary) hypertension (6) UTI (urinary tract infection) Qualifiers: Urinary tract infection type: acute cystitis Hematuria presence: with hematu linda Qualified Code(s): N30.01 - Acute cystitis with hematuria
[2019-04-29] MEDS: Gabapentin 300 MG CAPSULE PO SCH (20:02)
[2019-04-29] MEDS: Insulin DETEMIR 100 UNIT/ML X5UNITS SQ SCH (21:34)
[2019-04-30] MEDS: Ipratropium/Albuterol Neb 3 ML IH SCH ×4 (04:22→22:23)
[2019-04-30] MEDS ORDERED: predniSONE 20 MG TABLET PO SCH (09:00)
[2019-04-30] MEDS: Nicotine 21 MG PATCH.TD24 TD SCH (09:02)
[2019-04-30] MEDS: Insulin LISPRO 300 UNITS/3 ML VIAL SQ SCH ×6 (09:02→17:36)
[2019-04-30] MEDS: Furosemide 20 MG TABLET PO SCH (09:03)
[2019-04-30] MEDS: cloNIDine HCl 0.1 MG TABLET PO SCH ×2 (09:03→20:53)
[2019-04-30] MEDS: Apixaban 5 MG TABLET PO SCH ×2 (09:03→20:52)
[2019-04-30] MEDS: Folic Acid 1 MG TABLET PO SCH (09:03)
[2019-04-30] MEDS: Aspirin Enteric Coated 81 MG Tablet PO SCH (09:03)
[2019-04-30] MEDS: amLODIPine 5 MG TABLET PO SCH (09:03)
--- NOTE | 2019-04-30 10:05 | Internal Med Progress Note ---
Hospitalist Progress Note - Encounter Date of Encounter: 04/30/19 Time of Encounter: 09:00 - Subjective Interval History: No new complaints, reports good appetite. States that her breathing appears to be at her baseline. - Exam Vitals: Temp Pulse Resp BP Pulse Ox 97.7 F 64 16 138/67 100 04/30/19 06:31 04/30/19 06:31 04/30/19 06:31 04/30/19 06:31 04/30/19 09:09 Exam: General: A&O x 3, not in distress Respiratory: Diminished lung sounds bilaterally, unable to appreciate any wheezing Cardiovascular: Regular rate and regular rhythm GI: Soft, non-tender, non-distended, normal bowel sounds. Extremities:No joint swelling or tenderness noted. Neurological: no focal deficits. - Assessment and Plan (1) Acute on chronic respiratory failure with hypoxia and hypercapnia Current Visit: Yes Status: Acute (2) Acute exacerbation of chronic obstructive airways disease Current Visit: Yes Status: Acute (3) Metabolic encephalopathy Current Visit: Yes Status: Acute (4) Hypothyroidism Current Visit: Yes Status: Chronic (5) Hypertension Current Visit: Yes Status: Chronic (6) UTI (urinary tract infection) Current Visit: Yes Status: Acute DVT Prophylaxis: On Eliquis - Summary of Assessment and Plan Summary of Assessment and Plan: 73-year-old female with history of COPD on 4L with multiple admissions requiring intubation for the last several months, rheumatoid arthritis, type II DM, PE, pulmonary hypertension who was admitted for acute on chronic hypercapnic resp iratory failure secondary to another bout of COPD exacerbation. She was persistently hypercapnic with encephalopathy requiring continuous BiPAP. Acute on chronic hypercarbic respiratory failure - 2/2 to COPD exacerbation, ABG improved on continuous BiPaP - Appreciate pulm input, steroid increased to 60mg Q8 on 04/24 and started tapering from 04/27. Currently on PO 40mg QD (D11 total so far). Will decrease to 20mg QD from tomorrow and complete 5 more days. - completed 5 days of azithromycin. Continue schedueld bronchodilators - palliative care input appreciated, DNRCCA UTI due to Escherichia coli: - Completed 3 days of IV Rocephin IDDM: - Linagliptin and metformin on hold - BG 85 this morning, will dc HS lispro coverage - continue basal-bolus insulin HFpEF: doesn't look overly volume overloaded but given her tenuous respiratory condition, will keep her on low-dose of maintenance Lasix HTN: Continue home medications History of PE: Continue Eliquis Hypothyroidism: Continue levothyroxine History of back surgery: Continue pain medication Physical deconditioning: PT/OT pending, will likely need ECF given her recurrent admissions and profound deconditioning - Time Spent with Patient Total time spent is greater than 50% in coordination of care (as documented) at patient's floor/unit and/or counseling patient: less than 15 minutes Plan of Care Discussed with: patient Internal Medicine: Result - Labs CBC & Chem 7: 04/28/19 03:42 04/28/19 03:42 - ABG Interpretation ABG results: ABG ABG pH 7.32 pH Units (7.32-7.45) 04/25/19 04:47 ABG pCO2 103 mmHg (35-45) H* 04/25/19 04:47 ABG pO2 126 mmHg (85-104) H 04/25/19 04:47 ABG O2 Saturation 98 % (95-98) 04/25/19 04:47 Consult Discharge Plan - Plan Referrals: Jose G Toure MD [Non-Partnered Physician] - 05/07/19 11:00 am Jose F Salinas MD [Partnered Physician] - 05/23/19 8:30 am (4) Hypothyroidism Qualifiers: Hypothyroidism type: unspecified Qualified Code(s): E03.9 - Hypothyroidism, unspecified (5) Hypertension Qualifiers: Hypertension type: essential hypertension Qualified Code(s): I10 - Essential (primary) hypertension (6) UTI (urinary tract infection) Qualifiers: Urinary tract infection type: acute cystitis Hematuria presence: with hematuria Qualified Code(s): N30.01 - Acute cystitis with hematuria
[2019-04-30] MEDS: Gabapentin 300 MG CAPSULE PO SCH (20:52)
[2019-04-30] MEDS: Insulin DETEMIR 100 UNIT/ML X5UNITS SQ SCH (21:02)
[2019-05-01 01:39] LABS: Eosinophils % 0.3 %; Hemoglobin 8.8 g/dL (11.5-15.4); Red Cell Distribution Width 14.2 % (11.5-14.5)
[2019-05-01 01:41] LABS: Basophils % 0.2 %; Hematocrit 28.5 % (35.3-44.9); Immature Granulocytes % 0.5 % (0-4); Immature Platelets 12.4 % (1.1-6.1); Lymphocytes # 0.7 K/mcL (0.6-4.6); Lymphocytes % 12.2 %; Mean Corpuscular HGB Conc 30.9 g/dL (31.6-35.5); Mean Corpuscular Hemoglobin 29.6 pg (28.0-33.3); Mean Platelet Volume 12.9 fL (9.4-12.4); Monocytes # 0.5 K/mcL (0.0-1.3); Monocytes % 8.4 %; Neutrophils # 4.8 K/mcL (1.6-8.9); Red Blood Count 2.97 M/mcL (3.82-4.97); Segmented Neutrophils % 78.4 %; White Blood Count 6.1 K/mcL (4.3-11.1)
[2019-05-01 01:42] LABS: Platelet Count 92 K/mcL (140-400)
[2019-05-01 01:59] LABS: BUN/Creatinine Ratio 40 (6-26); Blood Urea Nitrogen 34 mg/dL (8-23); Calcium 8.4 mg/dL (8.6-10.3); Carbon Dioxide 31 mEq/L (23-29); Chloride 97 mEq/L (98-107); Glucose 220 mg/dL (70-105); Osmolality,Calculated 294 (280-300); Potassium 4.2 mEq/L (3.5-5.1); Sodium 135 mEq/L (136-145); eGFR For African Americans > 60 (> 60); eGFR For Non-African Americans > 60 (> 60)
[2019-05-01] MEDS: Ipratropium/Albuterol Neb 3 ML IH SCH ×4 (04:39→21:56)
[2019-05-01] MEDS: Folic Acid 1 MG TABLET PO SCH (09:33)
[2019-05-01] MEDS: Aspirin Enteric Coated 81 MG Tablet PO SCH (09:33)
[2019-05-01] MEDS: predniSONE 20 MG TABLET PO SCH (09:33)
[2019-05-01] MEDS: Insulin LISPRO 300 UNITS/3 ML VIAL SQ SCH ×6 (09:34→17:51)
[2019-05-01] MEDS: Apixaban 5 MG TABLET PO SCH ×2 (09:34→21:31)
[2019-05-01] MEDS: cloNIDine HCl 0.1 MG TABLET PO SCH ×2 (09:34→21:31)
[2019-05-01] MEDS: amLODIPine 5 MG TABLET PO SCH (09:34)
[2019-05-01] MEDS: Furosemide 20 MG TABLET PO SCH (09:34)
[2019-05-01] MEDS: Nicotine 21 MG PATCH.TD24 TD SCH (09:43)
--- NOTE | 2019-05-01 10:04 | Discharge Summary ---
- NOTES TO OUTPATIENT PROVIDER Notes to Outpatient Provider: Follow-up with PCP and pulmonology. Extremely poor prognosis but complicated by poor insight to her disease process. Date of Encounter: 05/01/19 Time of Encounter: 07:30 - Discharge Diagnosis (1) Acute on chronic respiratory failure with hypoxia and hypercapnia Priority: Primary Status: Acute (2) Acute exacerbation of chronic obstructive airways disease Priority: Secondary Status: Acute (3) Metabolic encephalopathy Priority: Secondary Status: Acute (4) Hypothyroidism Priority: Secondary Status: Chronic Qualifiers: Hypothyroidism type: unspecified Qualified Code(s): E03.9 - Hypothyroidism, unspecified (5) Hypertension Priority: Secondary Status: Chronic Qualifiers: Hypertension type: essential hypertension Qualified Code(s): I10 - Essent ial (primary) hypertension (6) UTI (urinary tract infection) Priority: Secondary Status: Acute Qualifiers: Urinary tract infection type: acute cystitis Hematuria presence: with hematuria Qualified Code(s): N30.01 - Acute cystitis with hematuria Hospital course: Ms. Jhaveri is a 74 year old female with history of COPD on 4L with multiple admissions requiring intubation for the last several months, rheumatoid arth ritis, type II DM, PE, pulmonary hypertension who was admitted for acute on chronic hypercapnic respiratory failure secondary to another bout of COPD exacerbation. She was persistently hypercapnic with encephalopathy requiring continuous BiPAP but eventually started to improve without having to be intubated and transferred to ICU. Steroid is tapered very slowly per pulm rec and she will be discharged home on 4 more days of PO Prednisone after receiving it inpatient for 12 days. She also had E. Coli cystitis for which she received 3 doses of IV Rocephin. Due to significant deconditioning from prolonged/recurrent hospital stay, she will be discharged to [facility] for further management. Palliative care team was involved to delineate her code status but she remained DNRCCA and continues to want intubation if it becomes necessary. Discharge discussed with: patient, nurse, social work, case management, distributor sales consultant - Time Spent with Patient Total time spent providing and/or coordinating discharge services: 33 mins - Discharge Medications Prescriptions: New Nicotine Patch [Nicoderm] 21 mg TD DAILY #30 patch.td24 predniSONE [PredniSONE] 20 mg PO DAILY #4 tablet Continued Lovastatin [Mevacor] 20 mg PO HS Folic Acid 1 mg PO DAILY Potassium Chloride [Klor-Con 10] 10 meq PO BID Alendronate Sodium [Fosamax] 70 mg PO TU Escitalopram [Lexapro] 10 mg PO DAILY Levothyroxine Sodium [Levo-T] 200 mcg PO DAILY Losartan Potassium [Cozaar] 100 mg PO DAILY Albuterol Neb [Proventil Neb] 2.5 mg IH Q4H PRN PRN Reason: Shortness Of Breath Linagliptin [Tradjenta] 5 mg PO DAILY Docusate [Colace] 100 mg PO BID PRN PRN Reason: Constipation Aspirin [Adult Aspirin] 81 mg PO DAILY Fluticasone/Umeclidin/Vilanter [Trelegy Ellipta 100-62.5-25] 1 puff IH DAILY Acetaminophen [Tylenol] 650 mg PO Q4H PRN PRN Reason: MILD PAIN/FEVER Albuterol Sulfate [Proventil Inhaler] 2 puff IH Q4H PRN PRN Reason: Shortness Of Breath Apixaban [Eliquis] 5 mg PO BID Ergocalciferol (VITAMIN D2) [Vitamin D2] 50,000 unit PO TU Furosemide [Lasix] 40 mg PO QAM Insulin LISPRO [HumaLOG] 0 units SQ ACHS Ipratropium/Albuterol Sulfate [Iprat-Albut 0.5-3(2.5) mg/3 ml] 3 ml IH Q4H PRN PRN Reason: Shortness Of Breath metFORMIN [Glucophage] 1,500 mg PO QPM amLODIPine [Norvasc] 5 mg PO DAILY #60 tablet cloNIDine HCl [CloNIDine HCl] 0.1 mg PO BID Gabapentin [Neurontin] 300 mg PO HS Methotrexate [Otrexup] 12.5 mg PO NEGRETE Oxymetazoline [Afrin] 2 spray NS Q12HR PRN PRN Reason: Nasal Congestion Discontinued Atenolol [Tenormin] 25 mg PO DAILY Home Medications: Folic Acid 1 mg PO DAILY 11/16/16 [History] Lovastatin [Mevacor] 20 mg PO HS 11/16/16 [History] Potassium Chloride [Klor-Con 10] 10 meq PO BID 11/16/16 [History] Alendronate Sodium [Fosamax] 70 mg PO TU 12/31/16 [History] Escitalopram [Lexapro] 10 mg PO DAILY 08/31/17 [History] Levothyroxine Sodium [Levo-T] 200 mcg PO DAILY 01/02/18 [History] Losartan Potassium [Cozaar] 100 mg PO DAILY 01/02/18 [History] Albuterol Neb [Proventil Neb] 2.5 mg IH Q4H PRN 10/13/18 [History] Docusate [Colace] 100 mg PO BID PRN 10/13/18 [History] Linagliptin [Tradjenta] 5 mg PO DAILY 10/13/18 [History] Aspirin [Adult Aspirin] 81 mg PO DAILY 12/08/18 [History] Acetaminophen [Tylenol] 650 mg PO Q4H PRN 02/02/19 [History] Albuterol Sulfate [Proventil Inhaler] 2 puff IH Q4H PRN 02/02/19 [History] Apixaban [Eliquis] 5 mg PO BID 02/02/19 [History] Ergocalciferol (VITAMIN D2) [Vitamin D2] 50,000 unit PO TU 02/02/19 [History] Fluticasone/Umeclidin/Vilanter [Trelegy Ellipta 100-62.5-25] 1 puff IH DAILY 02/02/19 [History] Furosemide [Lasix] 40 mg PO QAM 02/02/19 [History] Insulin LISPRO [HumaLOG] 0 units SQ ACHS 02/02/19 [History] Ipratropium/Albuterol Sulfate [Iprat-Albut 0.5-3(2.5) mg/3 ml] 3 ml IH Q4H PRN 02/02/19 [History] metFORMIN [Glucophage] 1,500 mg PO QPM 02/02/19 [History] amLODIPine [Norvasc] 5 mg PO DAILY #60 tablet 02/05/19 [Rx] Gabapentin [Neurontin] 300 mg PO HS 04/20/19 [History] Methotrexate [Otrexup] 12.5 mg PO NEGRETE 04/20/19 [History] Oxymetazoline [Afrin] 2 spray NS Q12HR PRN 04/20/19 [History] cloNIDine HCl [CloNIDine HCl] 0.1 mg PO BID 04/20/19 [History] Nicotine Patch [Nicoderm] 21 mg TD DAILY #30 patch.td24 05/01/19 [Rx] predniSONE [PredniSONE] 20 mg PO DAILY #4 tablet 05/01/19 [Rx] Allergies/Adverse Reactions: Allergy/AdvReac Type Severity Reaction Status Date / Time No Known Allergies Allergy Verified 02/02/19 09:29 Date of admission: 04/21/19 03:00 Primary care physician: PCP NONE Consults: 04/21/19 02:54 Consult to Nurse Navigator [CONS] Routine Comment: Consult to Pulmonology [CONS] Routine Consulting Provider: [facility] [place] Reason for Consult: COPD exacerbation Call Completed: Yes 04/22/19 19:13 Consult to Communications Consultant [CONS] Routine Reason for SW Consult: Possible placement 04/24/19 13:50 Consult to Pulmonology [CONS] Routine Consulting Provider: [facility] [place] Reason for Consult: hypercarbic respiratory failure Call Completed: Yes 04/25/19 10:00 Consult to Palliative Care [CONS] Routine Comment: Consulting Provider: Palliative Care [place] Reason for Consult: frequent admissions for COPD exacerbation including intubation x 2 since 10/2018. GOC discussion Call Completed: Yes 04/27/19 09:21 Consult to Occupational Therapy [CONS] Routine Comment: Evaluate, develop and implement POC Reason for Consult: Plan for discharge Does patient have active BEDREST order?: No Is patient medically & hemodynamically stable?: Yes Consult to Physical Therapy [CONS] Routine Comment: Evaluate, develop and implement POC Reason for Consult: PLan for discharge Does patient have active BEDREST order?: No Is patient medically & hemodynamically stable?: Yes - Constitutional Vitals: Temp Pulse Resp BP Pulse Ox 97.6 F 50 16 140/65 84 05/01/19 04:19 05/01/19 07:25 05/01/19 04:39 05/01/19 07:25 05/01/19 07:25 General appearance: Present: A&O X 3, no acute distress Exam: General: A&O x 3, not in distress Respiratory: Diminished lung sounds bilaterally, unable to appreciate any wheezing Cardiovascular: Regular rate and regular rhythm GI: Soft, non-tender, non-distended, normal bowel sounds. Extremities:No joint swelling or tenderness noted. Neurological: no focal deficits. - Patient Status Disposition: Transfer SNF Condition: Good Overall status at discharge: patient is progressing back to baseline - Discharge Instructions Instructions: Chronic Obstructive Pulmonary Disease (DC), Acute Respiratory Distress Syndrome (DC), Urinary Tract Infection in Women (DC), Diabetes Mellitus Type 2 in Adults (DC), Pulmonary Embolism (DC) Follow Up With: Jose G Toure MD [Non-Partnered Physician] - 05/07/19 11:00 am Jose F Salinas MD [Partnered Physician] - 05/23/19 8:30 am - Diet and Activity Activity: as per physical therapy Diet: diabetic diet
--- NOTE | 2019-05-01 10:09 | Physician Discharge Referral ---
ExtendedCare Referral Info Institutional Level of Care: Skilled - Diagnosis (1) Acute on chronic respiratory failure with hypoxia and hypercapnia Priority: Primary Status: Acute (2) Acute exacerbation of chronic obstructive airways disease Priority: Secondary Status: Acute (3) Metabolic encephalopathy Priority: Secondary Status: Acute (4) Hypothyroidism Priority: Secondary Status: Chronic (5) Hypertension Priority: Secondary Status: Chronic (6) UTI (urinary tract infection) Priority: Secondary Status: Acute - Transfer Medications Prescriptions: Nicotine Patch [Nicoderm] 21 mg TD DAILY #30 patch.td24 predniSONE [PredniSONE] 20 mg PO DAILY #4 tablet Home Medications: Folic Acid 1 mg PO DAILY 11/16/16 [History] Lovastatin [Mevacor] 20 mg PO HS 11/16/16 [History] Potassium Chloride [Klor-Con 10] 10 meq PO BID 11/16/16 [History] Alendronate Sodium [Fosamax] 70 mg PO TU 12/31/16 [History] Escitalopram [Lexapro] 10 mg PO DAILY 08/31/17 [History] Levothyroxine Sodium [Levo-T] 200 mcg PO DAILY 01/02/18 [History] Losartan Potassium [Cozaar] 100 mg PO DAILY 01/02/18 [History] Albuterol Neb [Proventil Neb] 2.5 mg IH Q4H PRN 10/13/18 [History] Docusate [Colace] 100 mg PO BID PRN 10/13/18 [History] Linagliptin [Tradjenta] 5 mg PO DAILY 10/13/18 [History] Aspirin [Adult Aspirin] 81 mg PO DAILY 12/08/18 [History] Acetaminophen [Tylenol] 650 mg PO Q4H PRN 02/02/19 [History] Albuterol Sulfate [Proventil Inhaler] 2 puff IH Q4H PRN 02/02/19 [History] Apixaban [Eliquis] 5 mg PO BID 02/02/19 [History] Ergocalciferol (VITAMIN D2) [Vitamin D2] 50,000 unit PO TU 02/02/19 [History] Fluticasone/Umeclidin/Vilanter [Trelegy Ellipta 100-62.5-25] 1 puff IH DAILY 02/02/19 [History] Furosemide [Lasix] 40 mg PO QAM 02/02/19 [History] Insulin LISPRO [HumaLOG] 0 units SQ ACHS 02/02/19 [History] Ipratropium/Albuterol Sulfate [Iprat-Albut 0.5-3(2.5) mg/3 ml] 3 ml IH Q4H PRN 02/02/19 [History] metFORMIN [Glucophage] 1,500 mg PO QPM 02/02/19 [History] amLODIPine [Norvasc] 5 mg PO DAILY #60 tablet 02/05/19 [Rx] Gabapentin [Neurontin] 300 mg PO HS 04/20/19 [History] Methotrexate [Otrexup] 12.5 mg PO NEGRETE 04/20/19 [History] Oxymetazoline [Afrin] 2 spray NS Q12HR PRN 04/20/19 [History] cloNIDine HCl [CloNIDine HCl] 0.1 mg PO BID 04/20/19 [History] Nicotine Patch [Nicoderm] 21 mg TD DAILY #30 patch.td24 05/01/19 [Rx] predniSONE [PredniSONE] 20 mg PO DAILY #4 tablet 05/01/19 [Rx] Allergies/Adverse Reactions: Allergy/AdvReac Type Severity Reaction Status Date / Time No Known Allergies Allergy Verified 02/02/19 09:29 - Respiratory Orders Oxygen / L per min (4L NC continous, BiPAP PRN and HS) Smoking Cessation: Smoking cessation has been advised. For more information, call the [place] Tobacco Quit Line at 2-675-BPQM-NOW. - Advance Directives Code Status: DNR-Arrest - Rehabiliation Orders Rehab Orders: Evaluation for Physical Therapy, Evaluation for Occupational Therapy - Diet Orders No Concentrated Sweets CERTIFICATION: I certify that the transfer of the above named patient to an Extended Care Facility is necessary for the continuing treatment of the diagnosis listed. The above information is true and accurate reflection of patient's current condition. Confidential - Redisclosure prohibited without a patient's written consent.
[2019-05-01] MEDS ORDERED: *HR* Methotrexate 2.5 MG TABLET PO ONE (14:00)
[2019-05-01] MEDS ORDERED: Insulin DETEMIR 100 UNIT/ML X5UNITS SQ SCH (21:00)
[2019-05-01] MEDS: Gabapentin 300 MG CAPSULE PO SCH (21:31)
[2019-05-01] MEDS: Ergocalciferol (VIT D2) 50,000 UNIT (1.25MG) CAP PO SCH (22:35)
[2019-05-02] MEDS: Ipratropium/Albuterol Neb 3 ML IH SCH ×3 (04:02→16:33)
[2019-05-02 08:09] VITALS: BP 142/64
[2019-05-02] MEDS: Apixaban 5 MG TABLET PO SCH (09:30)
[2019-05-02] MEDS: amLODIPine 5 MG TABLET PO SCH (09:30)
[2019-05-02] MEDS: predniSONE 20 MG TABLET PO SCH (09:30)
[2019-05-02] MEDS: Aspirin Enteric Coated 81 MG Tablet PO SCH (09:30)
[2019-05-02] MEDS: Folic Acid 1 MG TABLET PO SCH (09:30)
[2019-05-02] MEDS: Furosemide 20 MG TABLET PO SCH (10:18)
[2019-05-02] MEDS: cloNIDine HCl 0.1 MG TABLET PO SCH (10:18)
[2019-05-02] MEDS: Nicotine 21 MG PATCH.TD24 TD SCH (10:19)
[2019-05-02] MEDS: Insulin LISPRO 300 UNITS/3 ML VIAL SQ SCH ×6 (10:21→16:08)
== END 2019-05-02 17:18 | DRG 140 ==
LOC: ICNU 21:01 → EMEROOARM 21:01 → ICNU 04-21 01:22 → SUATTDRO 04-21 03:00 → 2NENU 04-22 11:24 → 2NNU 04-24 19:46 → 2NENU 04-26 11:07
PROVIDERS: ADMIT Family Medicine; ATTEND Internal Medicine

== ENCOUNTER 2019-07-24 15:48 | Inpatient (IN) ==
[~2019-07-24 15:48] MED LIST changes: +*HR* Midazolam HCl 2 MG/2 ML VIAL IV ONE; -*HR* Rocuronium Bromide 100 MG/10 ML VIAL IVC ONE
[2019-07-24] MEDS ORDERED: methylPREDNISolone 125 MG/2 ML VIAL IVP ONE (15:59)
[2019-07-24] MEDS ORDERED: Ipratropium/Albuterol Neb 3 ML IH ONE (15:59)
[2019-07-24 16:24] LABS: ABG Base Excess 10 mEq/L (-2 to 3); ABG HCO3 42 mEq/L (21-27); ABG Oxygen Saturation 96 % (95-98); ABG PCO2 116 mmHg (35-45); ABG PH 7.17 pH Units (7.32-7.45); ABG PO2 109 mmHg (85-104); ABG TCO2 46 mEq/L (20-26); Blood Gas Modality AF; Blood Gas VT 400 cc
[2019-07-24 16:39] LABS: Basophils % 0.3 %; Eosinophils % 0.2 %; Hematocrit 37.1 % (35.3-44.9); Hemoglobin 11.2 g/dL (11.5-15.4); INR 1.1; Immature Granulocytes % 1.8 % (0-4); Lymphocytes # 0.4 K/mcL (0.6-4.6); Lymphocytes % 3.8 %; Mean Corpuscular HGB Conc 30.2 g/dL (31.6-35.5); Mean Corpuscular Hemoglobin 29.1 pg (28.0-33.3); Mean Corpuscular Volume 96.4 fL (83.0-100.0); Mean Platelet Volume 10.3 fL (9.4-12.4); Monocytes # 0.6 K/mcL (0.0-1.3); Monocytes % 5.1 %; Neutrophils # 9.6 K/mcL (1.6-8.9); Platelet Count 259 K/mcL (140-400); Prothrombin Time 12.7 Seconds (9.4-12.1); Red Blood Count 3.85 M/mcL (3.82-4.97); Red Cell Distribution Width 13.8 % (11.5-14.5); Segmented Neutrophils % 88.8 %; White Blood Count 10.8 K/mcL (4.3-11.1)
[2019-07-24 16:40] LABS: Activated Partial Thrombo Time 33.9 Seconds (26.0-36.0)
[2019-07-24 16:56] LABS: Alanine Aminotransferase 4 Units/L (7-52); Albumin 4.3 g/dL (3.5-5.7); Albumin/Globulin Ratio 1.5 (1.1-2.2); Alkaline Phosphatase 68 Units/L (34-104); Aspartate Amino Transferase 11 Units/L (13-39); BUN/Creatinine Ratio 24 (6-26); Bilirubin,Direct 0.1 mg/dL (0.0-0.2); Bilirubin,Indirect 0.2 mg/dL (0.0-1.0); Bilirubin,Total 0.3 mg/dL (0.3-1.0); Blood Urea Nitrogen 21 mg/dL (8-23); Calcium 9.8 mg/dL (8.6-10.3); Carbon Dioxide 37 mEq/L (23-29); Chloride 98 mEq/L (98-107); Creatine Kinase 27 Units/L (30-223); Globulin 2.9 g/dL (2.4-3.5); Glucose 169 mg/dL (70-105); Osmolality,Calculated 307 (280-300); Sodium 145 mEq/L (136-145); Total Protein 7.2 g/dL (6.4-8.9); Troponin I 0.03 ng/mL (< 0.04); eGFR For African Americans > 60 (> 60); eGFR For Non-African Americans > 60 (> 60)
[2019-07-24 17:20] LABS: ABG Base Excess 10 mEq/L (-2 to 3); ABG HCO3 41 mEq/L (21-27); ABG Oxygen Saturation 97 % (95-98); ABG PCO2 101 mmHg (35-45); ABG PH 7.22 pH Units (7.32-7.45); ABG PO2 111 mmHg (85-104); ABG TCO2 44 mEq/L (20-26); Blood Gas Modality AF; Blood Gas VT 400 cc
[2019-07-24] MEDS ORDERED: Furosemide 40 MG/4 ML VIAL IVP ONE (17:36)
[2019-07-24 19:01] LABS: Bilirubin,Urine Small (Negative); Blood,Urine Negative (Negative); Clarity,Urine Clear (Clear); Color,Urine Yellow (Yellow); Glucose,Urine (UA) 100 mg/dL (Normal); Ketones,Urine Negative (Negative); Leukocyte Esterase,Urine Negative (Negative); Nitrite,Urine Negative (Negative); PH,Urine 5.5 pH Units (5.0-8.0); Protein,Urine 100 mg/dL (Neg-Trace); Specific Gravity,Urine 1.019 (1.010-1.025); Urobilinogen,Urine Normal (Normal)
[2019-07-24 19:04] LABS: Bacteria,Urine None Seen per hpf (None-Few); Squamous Epithelial Cell,Urine Moderate per lpf (None-Few); WBC,Urine 0-3 per hpf (0-3)
[2019-07-24] MEDS ORDERED: Isovue-370 500 ML BOTTLE IVP ONE (19:40)
[2019-07-24 21:36] LABS: Magnesium 2.2 mg/dL (1.6-2.6)
[2019-07-24] MEDS ORDERED: Naloxone 0.4 MG/ML INJ IVP PRN (22:21)
[2019-07-24 22:35] LABS: ABG Base Excess 11 mEq/L (-2 to 3); ABG HCO3 42 mEq/L (21-27); ABG Oxygen Saturation 95 % (95-98); ABG PCO2 105 mmHg (35-45); ABG PH 7.21 pH Units (7.32-7.45); ABG PO2 98 mmHg (85-104); ABG TCO2 45 mEq/L (20-26); Blood Gas Modality BiLevel; Blood Gas VT 450 cc
[2019-07-25 00:46] LABS: ABG Base Excess 14 mEq/L (-2 to 3); ABG HCO3 42 mEq/L (21-27); ABG Oxygen Saturation 92 % (95-98); ABG PCO2 70 mmHg (35-45); ABG PH 7.38 pH Units (7.32-7.45); ABG PO2 69 mmHg (85-104); ABG TCO2 44 mEq/L (20-26); Blood Gas Modality ASSIST CONTROL; Blood Gas VT 500 cc
[2019-07-25] MEDS: FentaNYL (PF) 1,000 MCG in 0.9 % Sodium Chloride 80 ML IVC SCH ×2 (02:27→18:30)
[2019-07-25] MEDS: Ipratropium/Albuterol Neb 3 ML IH SCH ×6 (03:30→23:20)
[2019-07-25] MEDS ORDERED: Acetaminophen IV 1,000 MG/100 ML INFUS..BTL IVPB SCH (06:00)
[2019-07-25] MEDS ORDERED: methylPREDNISolone 125 MG/2 ML VIAL IVP SCH (06:00)
[2019-07-25 06:47] LABS: Hematocrit 31.9 % (35.3-44.9); Hemoglobin 10.1 g/dL (11.5-15.4); Immature Granulocytes % 0.7 % (0-4); Lymphocytes # 0.3 K/mcL (0.6-4.6); Lymphocytes % 4.5 %; Mean Corpuscular HGB Conc 31.7 g/dL (31.6-35.5); Mean Corpuscular Hemoglobin 29.5 pg (28.0-33.3); Mean Corpuscular Volume 93.3 fL (83.0-100.0); Mean Platelet Volume 10.2 fL (9.4-12.4); Monocytes # 0.6 K/mcL (0.0-1.3); Monocytes % 8.2 %; Neutrophils # 6.3 K/mcL (1.6-8.9); Platelet Count 241 K/mcL (140-400); Red Blood Count 3.42 M/mcL (3.82-4.97); Red Cell Distribution Width 13.8 % (11.5-14.5); Segmented Neutrophils % 86.6 %; White Blood Count 7.3 K/mcL (4.3-11.1)
[2019-07-25 07:06] LABS: Calcium 9.5 mg/dL (8.6-10.3); Potassium 3.7 mEq/L (3.5-5.1)
[2019-07-25] MEDS ORDERED: *HR* Metoprolol 5 MG/5 ML VIAL IVP ONE (08:37)
[2019-07-25] MEDS: *HR* Metoprolol 5 MG/5 ML VIAL IVP PRN (08:50)
[2019-07-25] MEDS ORDERED: Artificial Tears SOLN 15 ML BOTTLE BOTH EYES PRN (08:54)
[2019-07-25] MEDS ORDERED: Furosemide 20 MG/2 ML VIAL IVP SCH (09:00)
[2019-07-25] MEDS: Chlorhexidine Rinse 15 ML MOUTHWASH MM SCH ×2 (09:23→20:00)
[2019-07-25] MEDS ORDERED: Acetaminophen 650 MG RECTAL SUPP RC PRN (10:39)
[2019-07-25] MEDS ORDERED: *HR* Dextrose 50 % in Water (Syg) 50 ML SYRINGE IVP PRN (11:42)
[2019-07-25] MEDS ORDERED: Dextrose Gel 15 GM/37.5 ML TUBE PO PRN (11:42)
[2019-07-25] MEDS ORDERED: D5% in Water 1,000 ML IVC PRN (11:42)
[2019-07-25] MEDS: Insulin LISPRO 300 UNITS/3 ML VIAL SQ SCH ×2 (12:27→17:25)
[2019-07-25] MEDS: Artificial Tears SOLN 15 ML BOTTLE BOTH EYES SCH ×4 (12:27→23:42)
[2019-07-25] MEDS: 0.9 % Sodium Chloride 1,000 ML IVC SCH ×2 (12:28→23:58)
[2019-07-25] MEDS: Pantoprazole 40 MG VIAL IVP SCH (12:28)
[2019-07-25] MEDS: *HR* Heparin 5,000 UNIT/ML VIAL SQ SCH ×2 (12:28→20:00)
[2019-07-25 14:47] LABS: Calcium 9.5 mg/dL (8.6-10.3); Magnesium 2.1 mg/dL (1.6-2.6); Potassium 3.3 mEq/L (3.5-5.1)
[2019-07-25] MEDS ORDERED: Potassium Chloride Elixir 20 MEQ/15 ML UDC GTUBE ONE (15:03)
[2019-07-25] MEDS: MethylPREDNISolone 40 MG/ML VIAL IVP SCH ×2 (15:22→23:44)
[2019-07-26] MEDS: Insulin LISPRO 300 UNITS/3 ML VIAL SQ SCH ×5 (01:35→23:50)
[2019-07-26] MEDS: Artificial Tears SOLN 15 ML BOTTLE BOTH EYES SCH ×6 (03:44→23:41)
[2019-07-26] MEDS: Ipratropium/Albuterol Neb 3 ML IH SCH ×5 (03:52→19:47)
[2019-07-26 03:54] LABS: Basophils % 0.1 %; Hematocrit 30.1 % (35.3-44.9); Hemoglobin 9.6 g/dL (11.5-15.4); Immature Granulocytes % 0.3 % (0-4); Lymphocytes # 0.2 K/mcL (0.6-4.6); Lymphocytes % 2.1 %; Mean Corpuscular HGB Conc 31.9 g/dL (31.6-35.5); Mean Corpuscular Hemoglobin 29.2 pg (28.0-33.3); Mean Corpuscular Volume 91.5 fL (83.0-100.0); Mean Platelet Volume 9.7 fL (9.4-12.4); Monocytes # 0.9 K/mcL (0.0-1.3); Monocytes % 7.7 %; Neutrophils # 10.1 K/mcL (1.6-8.9); Platelet Count 234 K/mcL (140-400); Red Blood Count 3.29 M/mcL (3.82-4.97); Red Cell Distribution Width 14.2 % (11.5-14.5); Segmented Neutrophils % 89.8 %; White Blood Count 11.2 K/mcL (4.3-11.1)
[2019-07-26 04:17] LABS: Calcium 9.1 mg/dL (8.6-10.3); Potassium 3.8 mEq/L (3.5-5.1)
[2019-07-26 04:49] LABS: ABG Base Excess 12 mEq/L (-2 to 3); ABG HCO3 39 mEq/L (21-27); ABG Oxygen Saturation 84 % (95-98); ABG PCO2 64 mmHg (35-45); ABG PH 7.39 pH Units (7.32-7.45); ABG PO2 51 mmHg (85-104); ABG TCO2 41 mEq/L (20-26); Blood Gas Modality ASSIST CONTROL; Blood Gas VT 420 cc
[2019-07-26] MEDS: *HR* Heparin 5,000 UNIT/ML VIAL SQ SCH ×3 (05:05→20:14)
[2019-07-26] MEDS: FentaNYL (PF) 1,000 MCG in 0.9 % Sodium Chloride 80 ML IVC SCH ×3 (05:08→15:45)
[2019-07-26] MEDS: MethylPREDNISolone 40 MG/ML VIAL IVP SCH ×3 (08:51→23:41)
[2019-07-26] MEDS: Chlorhexidine Rinse 15 ML MOUTHWASH MM SCH ×2 (08:51→19:12)
[2019-07-26] MEDS: Pantoprazole 40 MG VIAL IVP SCH (08:51)
[2019-07-26 09:09] LABS: Acinetobacter baumannii by PCR Not Detected (Not Detect); Candida albicans by PCR Not Detected (Not Detect); Candida glabrata by PCR Not Detected (Not Detect); Candida krusei by PCR Not Detected (Not Detect); Candida tropicalis by PCR Not Detected (Not Detect); Enterobacter cloacae Cmplx PCR Not Detected (Not Detect); Enterobacteriaceae by PCR Not Detected (Not Detect); Enterococcus by PCR Not Detected (Not Detect); Escherichia coli by PCR Not Detected (Not Detect); Klebsiella oxytoca by PCR Not Detected (Not Detect); Klebsiella pneumoniae by PCR Not Detected (Not Detect); Proteus by PCR Not Detected (Not Detect); Pseudomonas aeruginosa by PCR Not Detected (Not Detect); Serratia marcescens by PCR Not Detected (Not Detect); Staphylococcus aureus by PCR Not Detected (Not Detect); Staphylococcus by PCR Not Detected (Not Detect); Streptococcus agalactiae(B)PCR Not Detected (Not Detect); Streptococcus by PCR Not Detected (Not Detect); Streptococcus pneumoniae PCR Not Detected (Not Detect); Streptococcus pyogenes (A) PCR Not Detected (Not Detect)
[2019-07-26] MEDS: 0.9 % Sodium Chloride 1,000 ML IVC SCH (11:29)
[2019-07-26] MEDS: Dexmedetomidine HCl 400 MCG/100 ML MLS IVC SCH (23:42)
[2019-07-27] MEDS: Ipratropium/Albuterol Neb 3 ML IH SCH ×7 (00:05→23:18)
[2019-07-27] MEDS: FentaNYL (PF) 1,000 MCG in 0.9 % Sodium Chloride 80 ML IVC SCH ×2 (02:45→19:59)
[2019-07-27] MEDS: Artificial Tears SOLN 15 ML BOTTLE BOTH EYES SCH ×6 (03:08→23:42)
[2019-07-27 04:39] LABS: Basophils % 0.1 %; Hematocrit 31.9 % (35.3-44.9); Hemoglobin 9.8 g/dL (11.5-15.4); Immature Granulocytes % 0.5 % (0-4); Lymphocytes # 0.2 K/mcL (0.6-4.6); Lymphocytes % 1.5 %; Mean Corpuscular HGB Conc 30.7 g/dL (31.6-35.5); Mean Corpuscular Hemoglobin 29.3 pg (28.0-33.3); Mean Corpuscular Volume 95.5 fL (83.0-100.0); Mean Platelet Volume 10.5 fL (9.4-12.4); Monocytes # 0.5 K/mcL (0.0-1.3); Monocytes % 4.9 %; Neutrophils # 9.4 K/mcL (1.6-8.9); Platelet Count 222 K/mcL (140-400); Red Blood Count 3.34 M/mcL (3.82-4.97); Red Cell Distribution Width 14.5 % (11.5-14.5); White Blood Count 10.1 K/mcL (4.3-11.1)
[2019-07-27 04:52] LABS: Calcium 8.9 mg/dL (8.6-10.3); Potassium 4.8 mEq/L (3.5-5.1)
[2019-07-27 05:11] LABS: ABG Base Excess 9 mEq/L (-2 to 3); ABG HCO3 38 mEq/L (21-27); ABG Oxygen Saturation 89 % (95-98); ABG PCO2 83 mmHg (35-45); ABG PH 7.27 pH Units (7.32-7.45); ABG PO2 68 mmHg (85-104); ABG TCO2 41 mEq/L (20-26); Blood Gas Modality ASSIST CONTROL; Blood Gas VT 430 cc
[2019-07-27 05:12] LABS: Platelet Estimate Normal (Normal)
[2019-07-27] MEDS: *HR* Heparin 5,000 UNIT/ML VIAL SQ SCH ×3 (05:15→23:41)
[2019-07-27] MEDS: Insulin LISPRO 300 UNITS/3 ML VIAL SQ SCH ×4 (06:08→23:42)
[2019-07-27] MEDS: Dexmedetomidine HCl 400 MCG/100 ML MLS IVC SCH ×2 (06:56→17:58)
[2019-07-27] MEDS: 0.9 % Sodium Chloride 1,000 ML IVC SCH (07:45)
[2019-07-27] MEDS: MethylPREDNISolone 40 MG/ML VIAL IVP SCH ×3 (07:48→23:40)
[2019-07-27] MEDS: Chlorhexidine Rinse 15 ML MOUTHWASH MM SCH ×2 (07:48→19:58)
[2019-07-27] MEDS: Pantoprazole 40 MG VIAL IVP SCH (07:48)
[2019-07-27] MEDS ORDERED: Aminoglycoside Consult 1 EACH MC ONE (09:31)
[2019-07-27 12:28] LABS: Adenovirus Not Detected (Not Detect); Bordetella Pertussis Not Detected (Not Detect); Chlamydophila pneumoniae Not Detected (Not Detect); Coronavirus 229E Not Detected (Not Detect); Coronavirus HKU1 Not Detected (Not Detect); Coronavirus NL63 Not Detected (Not Detect); Coronavirus OC43 Not Detected (Not Detect); Human Metapneumovirus Not Detected (Not Detect); Human Rhinovirus/Enterovirus DETECTED (Not Detect); Influenza A Subtype 2009 H1 Not Detected (Not Detect); Influenza A Untypeable Not Detected (Not Detect); Influenza B Not Detected (Not Detect); Mycoplasma pneumoniae Not Detected (Not Detect); Parainfluenza Virus 1 Not Detected (Not Detect); Parainfluenza Virus 2 Not Detected (Not Detect); Parainfluenza Virus 3 Not Detected (Not Detect); Parainfluenza Virus 4 Not Detected (Not Detect); Respiratory Syncytial Virus Not Detected (Not Detect)
[2019-07-27] MEDS: Piperacillin/Tazobactam 3.375 GM in 0.9 % Sodium Chloride Mini Bag 100 ML IVPB SCH ×2 (16:29→23:41)
[2019-07-27] MEDS ORDERED: Piperacillin/Tazobactam 3.375 GM in 0.9 % Sodium Chloride Mini Bag 100 ML IVPB SCH (18:00)
[2019-07-28] MEDS: Dexmedetomidine HCl 400 MCG/100 ML MLS IVC SCH ×4 (02:17→19:07)
[2019-07-28] MEDS: Ipratropium/Albuterol Neb 3 ML IH SCH ×6 (03:20→23:43)
[2019-07-28] MEDS: Artificial Tears SOLN 15 ML BOTTLE BOTH EYES SCH ×6 (04:00→23:49)
[2019-07-28 04:52] LABS: ABG Base Excess 9 mEq/L (-2 to 3); ABG HCO3 36 mEq/L (21-27); ABG Oxygen Saturation 93 % (95-98); ABG PCO2 62 mmHg (35-45); ABG PH 7.37 pH Units (7.32-7.45); ABG PO2 72 mmHg (85-104); ABG TCO2 38 mEq/L (20-26); Blood Gas Modality AF; Blood Gas VT 460 cc
[2019-07-28] MEDS: *HR* Heparin 5,000 UNIT/ML VIAL SQ SCH ×3 (06:11→21:21)
[2019-07-28] MEDS: Insulin LISPRO 300 UNITS/3 ML VIAL SQ SCH ×4 (06:15→23:48)
[2019-07-28 06:23] LABS: Basophils # 0.1 K/mcL (0.0-0.2); Basophils % 0.4 %; Hematocrit 30.3 % (35.3-44.9); Hemoglobin 9.8 g/dL (11.5-15.4); Immature Granulocytes % 5.2 % (0-4); Lymphocytes # 0.4 K/mcL (0.6-4.6); Lymphocytes % 3.2 %; Mean Corpuscular HGB Conc 32.3 g/dL (31.6-35.5); Mean Corpuscular Hemoglobin 29.4 pg (28.0-33.3); Mean Platelet Volume 10.8 fL (9.4-12.4); Monocytes # 0.4 K/mcL (0.0-1.3); Monocytes % 3.6 %; Nucleated Red Blood Cells 0.2 /100 WBC (0); Platelet Count 197 K/mcL (140-400); Red Blood Count 3.33 M/mcL (3.82-4.97); Red Cell Distribution Width 14.6 % (11.5-14.5); Segmented Neutrophils % 87.6 %; White Blood Count 11.4 K/mcL (4.3-11.1)
[2019-07-28 06:37] LABS: Calcium 8.8 mg/dL (8.6-10.3); Potassium 5.4 mEq/L (3.5-5.1)
[2019-07-28 06:46] LABS: Platelet Estimate Normal (Normal)
[2019-07-28] MEDS ORDERED: 0.9 % Sodium Chloride 500 ML IVC ONE (07:49)
[2019-07-28] MEDS: MethylPREDNISolone 40 MG/ML VIAL IVP SCH ×3 (08:44→23:48)
[2019-07-28] MEDS: Piperacillin/Tazobactam 3.375 GM in 0.9 % Sodium Chloride Mini Bag 100 ML IVPB SCH ×3 (08:44→23:48)
[2019-07-28] MEDS: Chlorhexidine Rinse 15 ML MOUTHWASH MM SCH ×2 (08:45→19:45)
[2019-07-28] MEDS: Pantoprazole 40 MG VIAL IVP SCH (08:45)
[2019-07-28] MEDS ORDERED: Aminoglycoside Consult 1 EACH MC ONE (10:01)
[2019-07-28] MEDS: Insulin DETEMIR 100 UNIT/ML X5UNITS SQ SCH ×2 (12:06→21:08)
[2019-07-28 14:43] LABS: Calcium 8.7 mg/dL (8.6-10.3); Potassium 4.3 mEq/L (3.5-5.1)
[2019-07-28] MEDS: FentaNYL (PF) 1,000 MCG in 0.9 % Sodium Chloride 80 ML IVC SCH (17:58)
[2019-07-29] MEDS: Ipratropium/Albuterol Neb 3 ML IH SCH ×6 (03:17→23:39)
[2019-07-29] MEDS: Artificial Tears SOLN 15 ML BOTTLE BOTH EYES SCH ×5 (03:58→19:46)
[2019-07-29] MEDS: Dexmedetomidine HCl 400 MCG/100 ML MLS IVC SCH ×3 (03:59→23:13)
[2019-07-29 05:21] LABS: ABG Base Excess 8 mEq/L (-2 to 3); ABG HCO3 35 mEq/L (21-27); ABG Oxygen Saturation 92 % (95-98); ABG PCO2 59 mmHg (35-45); ABG PH 7.38 pH Units (7.32-7.45); ABG PO2 68 mmHg (85-104); ABG TCO2 37 mEq/L (20-26); Blood Gas Modality PRVC; Blood Gas VT 480 cc
[2019-07-29 05:34] LABS: Hematocrit 30.2 % (35.3-44.9); Hemoglobin 9.5 g/dL (11.5-15.4); Lymphocytes # 0.2 K/mcL (0.6-4.6); Mean Corpuscular HGB Conc 31.5 g/dL (31.6-35.5); Mean Corpuscular Hemoglobin 29.3 pg (28.0-33.3); Mean Corpuscular Volume 93.2 fL (83.0-100.0); Mean Platelet Volume 10.3 fL (9.4-12.4); Platelet Count 213 K/mcL (140-400); Red Blood Count 3.24 M/mcL (3.82-4.97); Red Cell Distribution Width 14.8 % (11.5-14.5); White Blood Count 10.3 K/mcL (4.3-11.1)
[2019-07-29 05:50] LABS: Calcium 8.7 mg/dL (8.6-10.3); Potassium 4.2 mEq/L (3.5-5.1)
[2019-07-29 05:57] LABS: Monocytes # 0.6 K/mcL (0.0-1.3); Neutrophils # 9.3 K/mcL (1.6-8.9); Platelet Estimate Normal (Normal)
[2019-07-29] MEDS: *HR* Heparin 5,000 UNIT/ML VIAL SQ SCH ×3 (06:02→23:13)
[2019-07-29] MEDS: Insulin LISPRO 300 UNITS/3 ML VIAL SQ SCH ×3 (06:03→17:57)
[2019-07-29] MEDS: *HR* Metoprolol 5 MG/5 ML VIAL IVP PRN ×2 (06:15→18:02)
[2019-07-29] MEDS: MethylPREDNISolone 40 MG/ML VIAL IVP SCH ×2 (07:25→15:47)
[2019-07-29] MEDS: Piperacillin/Tazobactam 3.375 GM in 0.9 % Sodium Chloride Mini Bag 100 ML IVPB SCH (07:29)
[2019-07-29] MEDS: Chlorhexidine Rinse 15 ML MOUTHWASH MM SCH ×2 (07:30→19:44)
[2019-07-29] MEDS ORDERED: Furosemide 20 MG/2 ML VIAL IVP ONE (07:59)
[2019-07-29 08:29] LABS: Bilirubin,Urine Negative (Negative); Blood,Urine Negative (Negative); Clarity,Urine Cloudy (Clear); Color,Urine Yellow (Yellow); Glucose,Urine (UA) Normal (Normal); Ketones,Urine Negative (Negative); Leukocyte Esterase,Urine Negative (Negative); Nitrite,Urine Negative (Negative); Protein,Urine 30 mg/dL (Neg-Trace); Specific Gravity,Urine 1.023 (1.010-1.025); Urobilinogen,Urine Normal (Normal)
[2019-07-29 08:32] LABS: Bacteria,Urine None Seen per hpf (None-Few); Hyaline Casts,Urine None Seen per lpf (None-Few); Squamous Epithelial Cell,Urine Many per lpf (None-Few); WBC,Urine 0-3 per hpf (0-3)
[2019-07-29] MEDS: cefTRIAXone 1,000 MG in Water for inj. (sterile) 10 ML IVP SCH (09:33)
[2019-07-29] MEDS: *HR* LORazepam 2 MG/ML VIAL IVP PRN (09:33)
[2019-07-29] MEDS: Pantoprazole 40 MG VIAL IVP SCH (09:33)
[2019-07-29 10:03] LABS: Prothrombin Time 11.8 Seconds (9.4-12.1)
[2019-07-29 10:05] LABS: Activated Partial Thrombo Time 29.4 Seconds (26.0-36.0)
[2019-07-29] MEDS: Insulin DETEMIR 100 UNIT/ML X5UNITS SQ SCH ×2 (10:10→19:44)
[2019-07-29 10:11] LABS: Albumin 3.1 g/dL (3.5-5.7); Albumin/Globulin Ratio 1.1 (1.1-2.2); Bilirubin,Direct 0.1 mg/dL (0.0-0.2); Bilirubin,Indirect 0.2 mg/dL (0.0-1.0); Bilirubin,Total 0.3 mg/dL (0.3-1.0); Globulin 2.7 g/dL (2.4-3.5); Total Protein 5.8 g/dL (6.4-8.9)
[2019-07-29 11:03] LABS: Candida parapsilosis by PCR Not Detected (Not Detect)
[2019-07-29] MEDS: FentaNYL (PF) 1,000 MCG in 0.9 % Sodium Chloride 80 ML IVC SCH (16:38)
[2019-07-30] MEDS: Insulin LISPRO 300 UNITS/3 ML VIAL SQ SCH ×4 (00:52→17:44)
[2019-07-30] MEDS: Artificial Tears SOLN 15 ML BOTTLE BOTH EYES SCH ×6 (00:53→21:07)
[2019-07-30] MEDS: Ipratropium/Albuterol Neb 3 ML IH SCH ×6 (04:07→23:41)
[2019-07-30 04:47] LABS: Hematocrit 30.5 % (35.3-44.9); Hemoglobin 9.5 g/dL (11.5-15.4); Mean Corpuscular HGB Conc 31.1 g/dL (31.6-35.5); Mean Corpuscular Hemoglobin 29.1 pg (28.0-33.3); Mean Corpuscular Volume 93.6 fL (83.0-100.0); Mean Platelet Volume 10.4 fL (9.4-12.4); Platelet Count 193 K/mcL (140-400); Red Blood Count 3.26 M/mcL (3.82-4.97); Red Cell Distribution Width 14.6 % (11.5-14.5); White Blood Count 9.7 K/mcL (4.3-11.1)
[2019-07-30 05:11] LABS: Calcium 8.9 mg/dL (8.6-10.3); Potassium 3.7 mEq/L (3.5-5.1)
[2019-07-30 05:16] LABS: ABG Base Excess 9 mEq/L (-2 to 3); ABG HCO3 35 mEq/L (21-27); ABG Oxygen Saturation 90 % (95-98); ABG PCO2 57 mmHg (35-45); ABG PH 7.41 pH Units (7.32-7.45); ABG PO2 61 mmHg (85-104); ABG TCO2 37 mEq/L (20-26)
[2019-07-30] MEDS: *HR* Heparin 5,000 UNIT/ML VIAL SQ SCH ×3 (05:58→21:07)
[2019-07-30 06:13] LABS: Lymphocytes # 2.5 K/mcL (0.6-4.6); Neutrophils # 7.2 K/mcL (1.6-8.9); Platelet Estimate Normal (Normal); Reactive Lymphocytes Present (Not Present)
[2019-07-30] MEDS: Chlorhexidine Rinse 15 ML MOUTHWASH MM SCH ×2 (08:19→21:07)
[2019-07-30] MEDS: Insulin DETEMIR 100 UNIT/ML X5UNITS SQ SCH ×3 (08:19→21:07)
[2019-07-30] MEDS: MethylPREDNISolone 40 MG/ML VIAL IVP SCH (08:20)
[2019-07-30] MEDS: cefTRIAXone 1,000 MG in Water for inj. (sterile) 10 ML IVP SCH (08:20)
[2019-07-30] MEDS: Pantoprazole 40 MG VIAL IVP SCH (08:20)
[2019-07-30] MEDS: Dexmedetomidine HCl 400 MCG/100 ML MLS IVC SCH (08:22)
[2019-07-30] MEDS ORDERED: Budesonide/Formoterol 160/4.5 1 PUFF INH IH ONE (09:34)
[2019-07-30] MEDS: Budesonide/Formoterol 160/4.5 1 PUFF INH IH SCH ×2 (09:45→20:01)
[2019-07-31] MEDS: Dexmedetomidine HCl 400 MCG/100 ML MLS IVC SCH ×2 (00:03→18:56)
[2019-07-31] MEDS: Artificial Tears SOLN 15 ML BOTTLE BOTH EYES SCH ×3 (00:03→08:37)
[2019-07-31] MEDS: Insulin LISPRO 300 UNITS/3 ML VIAL SQ SCH ×5 (00:10→21:14)
[2019-07-31] MEDS: Ipratropium/Albuterol Neb 3 ML IH SCH ×6 (03:41→23:41)
[2019-07-31 04:58] LABS: Hematocrit 29.7 % (35.3-44.9); Hemoglobin 9.7 g/dL (11.5-15.4); Mean Corpuscular HGB Conc 32.7 g/dL (31.6-35.5); Mean Corpuscular Hemoglobin 30.9 pg (28.0-33.3); Mean Corpuscular Volume 94.6 fL (83.0-100.0); Mean Platelet Volume 11.3 fL (9.4-12.4); Platelet Count 172 K/mcL (140-400); Red Blood Count 3.14 M/mcL (3.82-4.97); Red Cell Distribution Width 14.6 % (11.5-14.5); White Blood Count 9.6 K/mcL (4.3-11.1)
[2019-07-31 05:01] LABS: BUN/Creatinine Ratio 52 (6-26); Blood Urea Nitrogen 56 mg/dL (8-23); Calcium 8.8 mg/dL (8.6-10.3); Carbon Dioxide 30 mEq/L (23-29); Chloride 109 mEq/L (98-107); Glucose 108 mg/dL (70-105); Osmolality,Calculated 322 (280-300); Potassium 3.6 mEq/L (3.5-5.1); Sodium 148 mEq/L (136-145); eGFR For African Americans > 60 (> 60); eGFR For Non-African Americans 50 (> 60)
[2019-07-31] MEDS: *HR* Heparin 5,000 UNIT/ML VIAL SQ SCH (06:48)
[2019-07-31] MEDS: cefTRIAXone 1,000 MG in Water for inj. (sterile) 10 ML IVP SCH (08:36)
[2019-07-31] MEDS: MethylPREDNISolone 40 MG/ML VIAL IVP SCH (08:37)
[2019-07-31] MEDS: Pantoprazole 40 MG VIAL IVP SCH (08:37)
[2019-07-31] MEDS: Chlorhexidine Rinse 15 ML MOUTHWASH MM SCH ×2 (08:37→21:14)
[2019-07-31] MEDS ORDERED: Docusate Oral Soln 100 MG/10 ML UDC PO SCH (09:00)
[2019-07-31] MEDS: Insulin DETEMIR 100 UNIT/ML X5UNITS SQ SCH ×2 (10:00→23:53)
[2019-07-31] MEDS: Budesonide/Formoterol 160/4.5 1 PUFF INH IH SCH ×2 (11:22→19:49)
[2019-07-31] MEDS: Apixaban 5 MG TABLET PO SCH ×2 (12:51→21:11)
[2019-07-31 13:14] LABS: Thyroid Stimulating Hormone 0.835 mcIU/mL (0.340-5.600)
[2019-07-31] MEDS ORDERED: Ibuprofen 400 MG TABLET PO ONE (16:17)
[2019-07-31] MEDS ORDERED: cloNIDine HCl 0.1 MG TABLET PO STA (16:18)
[2019-07-31] MEDS ORDERED: amLODIPine 5 MG TABLET PO STA (16:20)
[2019-07-31] MEDS: Gabapentin 300 MG CAPSULE PO SCH (21:12)
[2019-07-31] MEDS: Sennosides/Docusate Sodium TABLET PO SCH (21:13)
[2019-08-01] MEDS: *HR* LORazepam 2 MG/ML VIAL IVP PRN (00:28)
[2019-08-01] MEDS: *HR* Metoprolol 5 MG/5 ML VIAL IVP PRN (00:28)
[2019-08-01] MEDS: Dexmedetomidine HCl 400 MCG/100 ML MLS IVC SCH (01:05)
[2019-08-01] MEDS: Ipratropium/Albuterol Neb 3 ML IH SCH ×6 (03:45→23:56)
[2019-08-01 04:08] LABS: ABG Base Excess 10 mEq/L (-2 to 3); ABG HCO3 35 mEq/L (21-27); ABG Oxygen Saturation 91 % (95-98); ABG PCO2 49 mmHg (35-45); ABG PH 7.46 pH Units (7.32-7.45); ABG PO2 58 mmHg (85-104); ABG TCO2 37 mEq/L (20-26)
[2019-08-01 06:26] LABS: Alanine Aminotransferase 8 Units/L (7-52); Albumin 3.1 g/dL (3.5-5.7); Albumin/Globulin Ratio 1.2 (1.1-2.2); Alkaline Phosphatase 53 Units/L (34-104); Aspartate Amino Transferase 16 Units/L (13-39); BUN/Creatinine Ratio 38 (6-26); Bilirubin,Total 0.3 mg/dL (0.3-1.0); Blood Urea Nitrogen 32 mg/dL (8-23); Calcium 8.8 mg/dL (8.6-10.3); Carbon Dioxide 33 mEq/L (23-29); Chloride 103 mEq/L (98-107); Globulin 2.5 g/dL (2.4-3.5); Glucose 48 mg/dL (70-105); Osmolality,Calculated 306 (280-300); Sodium 146 mEq/L (136-145); Total Protein 5.6 g/dL (6.4-8.9); eGFR For African Americans > 60 (> 60); eGFR For Non-African Americans > 60 (> 60)
[2019-08-01] MEDS: Budesonide/Formoterol 160/4.5 1 PUFF INH IH SCH ×2 (07:20→20:38)
[2019-08-01 07:47] LABS: Basophils # 0.1 K/mcL (0.0-0.2); Basophils % 0.6 %; Eosinophils # 0.1 K/mcL (0.0-0.6); Hematocrit 33.1 % (35.3-44.9); Immature Granulocytes % 4.5 % (0-4); Lymphocytes % 8.1 %; Mean Corpuscular HGB Conc 33.2 g/dL (31.6-35.5); Mean Corpuscular Hemoglobin 29.6 pg (28.0-33.3); Mean Platelet Volume 10.4 fL (9.4-12.4); Monocytes # 0.9 K/mcL (0.0-1.3); Monocytes % 7.5 %; Neutrophils # 9.2 K/mcL (1.6-8.9); Platelet Count 224 K/mcL (140-400); Red Blood Count 3.72 M/mcL (3.82-4.97); Red Cell Distribution Width 14.5 % (11.5-14.5); Segmented Neutrophils % 78.3 %; White Blood Count 11.8 K/mcL (4.3-11.1)
[2019-08-01] MEDS: Dextrose Gel 15 GM/37.5 ML TUBE PO PRN ×2 (07:54→08:29)
[2019-08-01] MEDS: Insulin LISPRO 300 UNITS/3 ML VIAL SQ SCH ×4 (08:28→20:02)
[2019-08-01] MEDS: amLODIPine 5 MG TABLET PO SCH (08:30)
[2019-08-01] MEDS: Apixaban 5 MG TABLET PO SCH ×2 (08:30→20:01)
[2019-08-01] MEDS: Sennosides/Docusate Sodium TABLET PO SCH ×2 (08:30→20:01)
[2019-08-01] MEDS: MethylPREDNISolone 40 MG/ML VIAL IVP SCH (08:31)
[2019-08-01] MEDS: Pantoprazole 40 MG VIAL IVP SCH (08:31)
[2019-08-01] MEDS: cloNIDine HCl 0.1 MG TABLET PO SCH ×2 (08:31→20:01)
[2019-08-01] MEDS: cefTRIAXone 1,000 MG in Water for inj. (sterile) 10 ML IVP SCH (08:31)
[2019-08-01] MEDS: Chlorhexidine Rinse 15 ML MOUTHWASH MM SCH ×2 (08:32→20:01)
[2019-08-01] MEDS: Insulin DETEMIR 100 UNIT/ML X5UNITS SQ SCH ×2 (11:35→20:03)
[2019-08-01] MEDS: *HR* Labetalol 20 MG/4 ML SYRINGE IVP PRN ×2 (17:35→23:56)
[2019-08-01] MEDS ORDERED: *HR* Methotrexate 2.5 MG TABLET PO SCH (18:45)
[2019-08-01] MEDS: Gabapentin 300 MG CAPSULE PO SCH (20:01)
[2019-08-02] MEDS: Ipratropium/Albuterol Neb 3 ML IH SCH ×5 (03:48→20:28)
[2019-08-02 05:56] LABS: Basophils % 0.2 %; Eosinophils # 0.2 K/mcL (0.0-0.6); Eosinophils % 1.3 %; Hematocrit 33.3 % (35.3-44.9); Hemoglobin 10.3 g/dL (11.5-15.4); Immature Granulocytes % 2.6 % (0-4); Lymphocytes # 0.9 K/mcL (0.6-4.6); Lymphocytes % 7.1 %; Mean Corpuscular HGB Conc 30.9 g/dL (31.6-35.5); Mean Corpuscular Hemoglobin 28.5 pg (28.0-33.3); Mean Corpuscular Volume 92.2 fL (83.0-100.0); Mean Platelet Volume 10.9 fL (9.4-12.4); Monocytes # 0.8 K/mcL (0.0-1.3); Monocytes % 5.9 %; Neutrophils # 10.8 K/mcL (1.6-8.9); Platelet Count 247 K/mcL (140-400); Red Blood Count 3.61 M/mcL (3.82-4.97); Red Cell Distribution Width 14.6 % (11.5-14.5); Segmented Neutrophils % 82.9 %
[2019-08-02] MEDS: *HR* Labetalol 20 MG/4 ML SYRINGE IVP PRN (06:03)
[2019-08-02 06:07] LABS: BUN/Creatinine Ratio 30 (6-26); Blood Urea Nitrogen 26 mg/dL (8-23); Calcium 8.8 mg/dL (8.6-10.3); Carbon Dioxide 34 mEq/L (23-29); Chloride 104 mEq/L (98-107); Glucose 46 mg/dL (70-105); Magnesium 2.2 mg/dL (1.6-2.6); Osmolality,Calculated 306 (280-300); Sodium 147 mEq/L (136-145); eGFR For African Americans > 60 (> 60); eGFR For Non-African Americans > 60 (> 60)
[2019-08-02] MEDS: Insulin LISPRO 300 UNITS/3 ML VIAL SQ SCH ×3 (07:26→17:02)
[2019-08-02] MEDS ORDERED: Potassium Chloride 20 MEQ, Lidocaine 1% 2 ML in 0.9 % Sodium Chloride 250 ML IVPB ONE (07:36)
[2019-08-02] MEDS: Budesonide/Formoterol 160/4.5 1 PUFF INH IH SCH ×2 (07:36→20:28)
[2019-08-02] MEDS: predniSONE 20 MG TABLET PO SCH (07:37)
[2019-08-02] MEDS: amLODIPine 5 MG TABLET PO SCH (07:38)
[2019-08-02] MEDS: Apixaban 5 MG TABLET PO SCH ×2 (07:38→20:39)
[2019-08-02] MEDS: cefTRIAXone 1,000 MG in Water for inj. (sterile) 10 ML IVP SCH (07:38)
[2019-08-02] MEDS: cloNIDine HCl 0.1 MG TABLET PO SCH ×2 (07:38→20:39)
[2019-08-02] MEDS: Folic Acid 1 MG TABLET PO SCH (07:38)
[2019-08-02] MEDS: Sennosides/Docusate Sodium TABLET PO SCH ×2 (07:38→20:39)
[2019-08-02] MEDS: Chlorhexidine Rinse 15 ML MOUTHWASH MM SCH ×2 (07:39→20:39)
[2019-08-02] MEDS: Pantoprazole 40 MG VIAL IVP SCH (07:39)
[2019-08-02 10:29] LABS: Estimated Average Glucose 151 mg/dl
[2019-08-02] MEDS ORDERED: D5% in Water 1,000 ML IVC PRN (10:58)
[2019-08-02] MEDS ORDERED: Dextrose Gel 15 GM/37.5 ML TUBE PO PRN ×2 (10:58)
[2019-08-02] MEDS ORDERED: *HR* Dextrose 50 % in Water (Syg) 50 ML SYRINGE IVP PRN (10:58)
[2019-08-02] MEDS: Azithromycin 500 MG in 0.9 % Sodium Chloride 250 ML IVPB SCH (11:31)
[2019-08-02] MEDS: Insulin DETEMIR 100 UNIT/ML X5UNITS SQ SCH (11:36)
[2019-08-02] MEDS ORDERED: Acetaminophen 325 MG TABLET PO PRN (17:00)
[2019-08-02] MEDS: Gabapentin 300 MG CAPSULE PO SCH ×2 (20:39→23:03)
[2019-08-03] MEDS: Ipratropium/Albuterol Neb 3 ML IH SCH ×6 (00:20→20:53)
[2019-08-03 04:39] LABS: Basophils % 0.2 %; Eosinophils # 0.1 K/mcL (0.0-0.6); Eosinophils % 0.8 %; Hematocrit 34.7 % (35.3-44.9); Hemoglobin 10.6 g/dL (11.5-15.4); Immature Granulocytes % 1.2 % (0-4); Lymphocytes % 7.6 %; Mean Corpuscular HGB Conc 30.5 g/dL (31.6-35.5); Mean Corpuscular Hemoglobin 29.5 pg (28.0-33.3); Mean Corpuscular Volume 96.7 fL (83.0-100.0); Mean Platelet Volume 12.8 fL (9.4-12.4); Monocytes # 0.7 K/mcL (0.0-1.3); Monocytes % 5.4 %; Neutrophils # 11.2 K/mcL (1.6-8.9); Platelet Count 140 K/mcL (140-400); Red Blood Count 3.59 M/mcL (3.82-4.97); Red Cell Distribution Width 14.8 % (11.5-14.5); Segmented Neutrophils % 84.8 %; White Blood Count 13.3 K/mcL (4.3-11.1)
[2019-08-03 05:34] LABS: BUN/Creatinine Ratio 29 (6-26); Blood Urea Nitrogen 27 mg/dL (8-23); Calcium 8.5 mg/dL (8.6-10.3); Carbon Dioxide 22 mEq/L (23-29); Chloride 108 mEq/L (98-107); Glucose 178 mg/dL (70-105); Magnesium 2.1 mg/dL (1.6-2.6); Osmolality,Calculated 306 (280-300); Potassium 4.3 mEq/L (3.5-5.1); Sodium 143 mEq/L (136-145); eGFR For African Americans > 60 (> 60); eGFR For Non-African Americans 59 (> 60)
[2019-08-03] MEDS: Budesonide/Formoterol 160/4.5 1 PUFF INH IH SCH ×2 (07:45→20:53)
[2019-08-03] MEDS: Insulin LISPRO 300 UNITS/3 ML VIAL SQ SCH ×3 (08:36→17:04)
[2019-08-03] MEDS: cefTRIAXone 1,000 MG in Water for inj. (sterile) 10 ML IVP SCH (08:36)
[2019-08-03] MEDS: Chlorhexidine Rinse 15 ML MOUTHWASH MM SCH ×2 (08:36→22:07)
[2019-08-03] MEDS: amLODIPine 5 MG TABLET PO SCH (08:37)
[2019-08-03] MEDS: Sennosides/Docusate Sodium TABLET PO SCH ×2 (08:37→22:07)
[2019-08-03] MEDS: predniSONE 20 MG TABLET PO SCH (08:37)
[2019-08-03] MEDS: Apixaban 5 MG TABLET PO SCH ×2 (08:37→22:07)
[2019-08-03] MEDS: Folic Acid 1 MG TABLET PO SCH (08:37)
[2019-08-03] MEDS: cloNIDine HCl 0.1 MG TABLET PO SCH ×2 (08:37→22:07)
[2019-08-03] MEDS: Insulin DETEMIR 100 UNIT/ML X5UNITS SQ SCH (08:42)
[2019-08-03] MEDS: Azithromycin 500 MG in 0.9 % Sodium Chloride 250 ML IVPB SCH (10:39)
[2019-08-03] MEDS: Gabapentin 300 MG CAPSULE PO SCH (22:07)
[2019-08-04] MEDS: Ipratropium/Albuterol Neb 3 ML IH SCH ×5 (00:17→15:35)
[2019-08-04 01:34] LABS: Basophils % 0.1 %; Eosinophils % 0.3 %; Hematocrit 30.7 % (35.3-44.9); Hemoglobin 9.6 g/dL (11.5-15.4); Immature Granulocytes % 1.7 % (0-4); Lymphocytes # 0.7 K/mcL (0.6-4.6); Lymphocytes % 5.5 %; Mean Corpuscular HGB Conc 31.3 g/dL (31.6-35.5); Mean Corpuscular Hemoglobin 28.7 pg (28.0-33.3); Mean Corpuscular Volume 91.6 fL (83.0-100.0); Mean Platelet Volume 10.6 fL (9.4-12.4); Monocytes # 0.3 K/mcL (0.0-1.3); Monocytes % 2.5 %; Platelet Count 279 K/mcL (140-400); Red Blood Count 3.35 M/mcL (3.82-4.97); Red Cell Distribution Width 14.7 % (11.5-14.5); Segmented Neutrophils % 89.9 %; White Blood Count 12.2 K/mcL (4.3-11.1)
[2019-08-04 03:11] LABS: BUN/Creatinine Ratio 27 (6-26); Blood Urea Nitrogen 23 mg/dL (8-23); Calcium 8.5 mg/dL (8.6-10.3); Carbon Dioxide 29 mEq/L (23-29); Chloride 106 mEq/L (98-107); Glucose 161 mg/dL (70-105); Osmolality,Calculated 299 (280-300); Potassium 4.3 mEq/L (3.5-5.1); Sodium 141 mEq/L (136-145); eGFR For African Americans > 60 (> 60); eGFR For Non-African Americans > 60 (> 60)
[2019-08-04] MEDS: *HR* Labetalol 20 MG/4 ML SYRINGE IVP PRN (03:50)
[2019-08-04] MEDS: Budesonide/Formoterol 160/4.5 1 PUFF INH IH SCH (07:33)
[2019-08-04] MEDS: predniSONE 20 MG TABLET PO SCH (10:36)
[2019-08-04] MEDS: Insulin DETEMIR 100 UNIT/ML X5UNITS SQ SCH (10:36)
[2019-08-04] MEDS: cefTRIAXone 1,000 MG in Water for inj. (sterile) 10 ML IVP SCH (10:37)
[2019-08-04] MEDS: Apixaban 5 MG TABLET PO SCH (10:37)
[2019-08-04] MEDS: Azithromycin 500 MG in 0.9 % Sodium Chloride 250 ML IVPB SCH (10:37)
[2019-08-04] MEDS: Folic Acid 1 MG TABLET PO SCH (10:37)
[2019-08-04] MEDS: cloNIDine HCl 0.1 MG TABLET PO SCH (10:37)
[2019-08-04] MEDS: amLODIPine 5 MG TABLET PO SCH (10:38)
[2019-08-04] MEDS: Chlorhexidine Rinse 15 ML MOUTHWASH MM SCH (10:38)
[2019-08-04] MEDS: Insulin LISPRO 300 UNITS/3 ML VIAL SQ SCH ×2 (10:39→13:03)
[2019-08-04] MEDS: Sennosides/Docusate Sodium TABLET PO SCH (10:43)
[2019-08-04 14:48] VITALS: BP 127/85
== END 2019-08-04 17:12 | DRG 130 ==
LOC: EMEROOARM 15:48 → 2NENU 15:48 → SUATTDRO 20:34 → OBSVTOIN 20:34 → 2NENU 21:05 → ICNU 22:51 → 2NNU 08-01 00:56 → 3ANU 08-03 20:34
PROVIDERS: ADMIT Internal Medicine; ATTEND Pharmacist

== ENCOUNTER 2019-08-12 04:43 | Inpatient (IN) ==
[2019-08-12 05:59] LABS: Basophils % 0.1 %; Eosinophils % 0.1 %; Hematocrit 19.5 % (35.3-44.9); Hemoglobin 6.1 g/dL (11.5-15.4); Immature Granulocytes % 1.9 % (0-4); Lymphocytes # 0.9 K/mcL (0.6-4.6); Lymphocytes % 5.1 %; Mean Corpuscular HGB Conc 31.3 g/dL (31.6-35.5); Mean Corpuscular Hemoglobin 29.5 pg (28.0-33.3); Mean Corpuscular Volume 94.2 fL (83.0-100.0); Mean Platelet Volume 10.4 fL (9.4-12.4); Monocytes % 6.1 %; Neutrophils # 14.4 K/mcL (1.6-8.9); Platelet Count 254 K/mcL (140-400); Red Blood Count 2.07 M/mcL (3.82-4.97); Red Cell Distribution Width 15.1 % (11.5-14.5); Segmented Neutrophils % 86.7 %; White Blood Count 16.6 K/mcL (4.3-11.1)
[2019-08-12 06:09] LABS: INR 1.7; Prothrombin Time 19.6 Seconds (9.4-12.1)
[2019-08-12 06:12] LABS: Activated Partial Thrombo Time 26.8 Seconds (26.0-36.0)
[2019-08-12] MEDS ORDERED: 0.9 % Sodium Chloride 1,000 ML IVC ONE (06:13)
[2019-08-12] MEDS ORDERED: Ondansetron 4 MG/2 ML VIAL IVP ONE (06:13)
[2019-08-12 06:24] LABS: Albumin 2.9 g/dL (3.5-5.7); Albumin/Globulin Ratio 1.9 (1.1-2.2); Bilirubin,Indirect 0.2 mg/dL (0.0-1.0); Bilirubin,Total 0.2 mg/dL (0.3-1.0); Calcium 7.9 mg/dL (8.6-10.3); Globulin 1.5 g/dL (2.4-3.5); Magnesium 1.3 mg/dL (1.6-2.6); Phosphorous 3.5 mg/dL (2.7-4.5); Total Protein 4.4 g/dL (6.4-8.9); Troponin I 0.08 ng/mL (< 0.04)
[2019-08-12] MEDS ORDERED: WATER FOR INJ IVPB ONE (06:28)
[2019-08-12] MEDS ORDERED: HUM PROTHROMBIN CPLX IVPB ONE (06:28)
[2019-08-12] MEDS ORDERED: [UNRECOGNIZED DRUG - OTHER] IVPB ONE (06:28)
[2019-08-12] MEDS ORDERED: *HR* LORazepam 2 MG/ML VIAL IVP ONE (06:31)
[2019-08-12] MEDS ORDERED: 0.9 % Sodium Chloride 500 ML ONE (06:40)
[2019-08-12] MEDS ORDERED: *HR* Etomidate 20 MG/10 ML AMPUL IVP ONE ×2 (07:32→07:50)
[2019-08-12] MEDS ORDERED: *HR* Rocuronium Bromide 50 MG/5 ML VIAL IVP ONE (07:33)
[2019-08-12] MEDS ORDERED: *HR* EPINEPHrine 1 MG/10 ML SYRINGE ONE (07:40)
[2019-08-12] MEDS ORDERED: Dexmedetomidine HCl 400 MCG/100 ML MLS IVC ONE (07:48)
[2019-08-12] MEDS ORDERED: *HR* Rocuronium Bromide 100 MG/10 ML VIAL IVC ONE (07:50)
[2019-08-12] MEDS ORDERED: Dexmedetomidine HCl 400 MCG/100 ML MLS IVC SCH (08:00)
[2019-08-12 08:52] LABS: Bilirubin,Urine Negative (Negative); Blood,Urine Negative (Negative); Clarity,Urine Cloudy (Clear); Color,Urine Yellow (Yellow); Glucose,Urine (UA) Normal (Normal); Ketones,Urine Negative (Negative); Leukocyte Esterase,Urine Negative (Negative); Nitrite,Urine Negative (Negative); Protein,Urine 30 mg/dL (Neg-Trace); Specific Gravity,Urine 1.017 (1.010-1.025); Urobilinogen,Urine Normal (Normal)
[2019-08-12 08:55] LABS: Bacteria,Urine None Seen per hpf (None-Few); Squamous Epithelial Cell,Urine Many per lpf (None-Few); WBC,Urine 0-3 per hpf (0-3)
[2019-08-12 08:56] LABS: ABG Base Excess 5 mEq/L (-2 to 3); ABG HCO3 33 mEq/L (21-27); ABG Oxygen Saturation 100 % (95-98); ABG PCO2 72 mmHg (35-45); ABG PH 7.27 pH Units (7.32-7.45); ABG PO2 542 mmHg (85-104); ABG TCO2 35 mEq/L (20-26); Blood Gas VT 450 cc
[2019-08-12 09:05] LABS: Hyaline Casts,Urine Few per lpf (None-Few)
[2019-08-12] MEDS ORDERED: Artificial Tears SOLN 15 ML BOTTLE BOTH EYES PRN (10:14)
[2019-08-12] MEDS ORDERED: 0.9 % Sodium Chloride 250 ML IVC SCH ×2 (10:30→13:45)
[2019-08-12] MEDS: Dexmedetomidine HCl 400 MCG/100 ML MLS IVC SCH ×2 (10:34→20:01)
[2019-08-12] MEDS: FentaNYL (PF) 1,000 MCG in 0.9 % Sodium Chloride 80 ML IVC SCH (11:06)
[2019-08-12] MEDS ORDERED: *HR* Midazolam HCl 5 MG/5 ML VIAL IVP ONE (11:25)
[2019-08-12] MEDS ORDERED: *HR* FentaNYL (PF) 100 MCG/2 ML VIAL IVP ONE (11:25)
[2019-08-12] MEDS: Pantoprazole 40 MG in 0.9 % Sodium Chloride Mini Bag 100 ML IVC SCH ×3 (11:31→23:23)
[2019-08-12] MEDS: Artificial Tears SOLN 15 ML BOTTLE BOTH EYES SCH ×4 (11:31→23:27)
[2019-08-12] MEDS ORDERED: Ringers Solution, Lactated 500 ML ONE (12:21)
[2019-08-12 12:27] LABS: Hematocrit 22.3 % (35.3-44.9); Hemoglobin 7.4 g/dL (11.5-15.4)
[2019-08-12] MEDS ORDERED: Metoclopramide 10 MG/2 ML VIAL IVP ONE (12:29)
[2019-08-12 12:33] LABS: ABG Base Excess 8 mEq/L (-2 to 3); ABG HCO3 34 mEq/L (21-27); ABG Oxygen Saturation 99 % (95-98); ABG PCO2 61 mmHg (35-45); ABG PH 7.35 pH Units (7.32-7.45); ABG PO2 124 mmHg (85-104); ABG TCO2 36 mEq/L (20-26); Blood Gas Modality VC; Blood Gas VT 480 cc
[2019-08-12] MEDS ORDERED: Norepinephrine 4 MG in 0.9 % Sodium Chloride 250 ML IVC STA (12:56)
[2019-08-12 14:03] LABS: Albumin 2.2 g/dL (3.5-5.7); Albumin/Globulin Ratio 1.8 (1.1-2.2); Bilirubin,Total 0.5 mg/dL (0.3-1.0); Calcium 6.9 mg/dL (8.6-10.3); Globulin 1.2 g/dL (2.4-3.5); Potassium 4.1 mEq/L (3.5-5.1); Total Protein 3.4 g/dL (6.4-8.9)
[2019-08-12 17:34] LABS: Hematocrit 28.7 % (35.3-44.9)
[2019-08-12 17:36] LABS: Hemoglobin 9.8 g/dL (11.5-15.4)
[2019-08-12 17:54] LABS: Calcium 7.2 mg/dL (8.6-10.3); Potassium 4.1 mEq/L (3.5-5.1)
[2019-08-12] MEDS ORDERED: Insulin LISPRO 300 UNITS/3 ML VIAL SQ SCH (20:00)
[2019-08-12] MEDS: Chlorhexidine Rinse 15 ML MOUTHWASH MM SCH (20:02)
[2019-08-12] MEDS: Insulin LISPRO 300 UNITS/3 ML VIAL SQ SCH ×2 (20:09→23:27)
[2019-08-12 22:34] LABS: Hematocrit 27.9 % (35.3-44.9); Hemoglobin 9.8 g/dL (11.5-15.4)
[2019-08-12 22:54] LABS: Albumin 2.6 g/dL (3.5-5.7); Bilirubin,Total 0.8 mg/dL (0.3-1.0); Calcium 7.1 mg/dL (8.6-10.3); Globulin 1.3 g/dL (2.4-3.5); Total Protein 3.9 g/dL (6.4-8.9)
[2019-08-13] MEDS: Norepinephrine 4 MG in 0.9 % Sodium Chloride 250 ML IVC SCH ×2 (01:16→23:39)
[2019-08-13 03:52] LABS: ABG Base Excess 4 mEq/L (-2 to 3); ABG HCO3 30 mEq/L (21-27); ABG Oxygen Saturation 85 % (95-98); ABG PCO2 51 mmHg (35-45); ABG PH 7.38 pH Units (7.32-7.45); ABG PO2 51 mmHg (85-104); ABG TCO2 32 mEq/L (20-26); Blood Gas VT 480 cc
[2019-08-13] MEDS: Pantoprazole 40 MG in 0.9 % Sodium Chloride Mini Bag 100 ML IVC SCH ×5 (04:21→20:57)
[2019-08-13] MEDS: Artificial Tears SOLN 15 ML BOTTLE BOTH EYES SCH ×5 (04:22→19:56)
[2019-08-13] MEDS: Insulin LISPRO 300 UNITS/3 ML VIAL SQ SCH ×5 (04:22→19:56)
[2019-08-13] MEDS: FentaNYL (PF) 1,000 MCG in 0.9 % Sodium Chloride 80 ML IVC SCH (04:24)
[2019-08-13 04:30] LABS: Basophils % 0.2 %; Eosinophils # 0.2 K/mcL (0.0-0.6); Eosinophils % 1.1 %; Hematocrit 27.2 % (35.3-44.9); Hemoglobin 9.1 g/dL (11.5-15.4); Immature Granulocytes % 1.2 % (0-4); Lymphocytes # 1.1 K/mcL (0.6-4.6); Lymphocytes % 7.3 %; Mean Corpuscular HGB Conc 33.5 g/dL (31.6-35.5); Mean Corpuscular Hemoglobin 29.4 pg (28.0-33.3); Mean Platelet Volume 10.4 fL (9.4-12.4); Monocytes # 0.9 K/mcL (0.0-1.3); Monocytes % 5.7 %; Neutrophils # 12.7 K/mcL (1.6-8.9); Platelet Count 153 K/mcL (140-400); Segmented Neutrophils % 84.5 %; White Blood Count 15.1 K/mcL (4.3-11.1)
[2019-08-13 04:32] LABS: Mean Corpuscular Volume 87.7 fL (83.0-100.0)
[2019-08-13 04:52] LABS: Calcium 7.2 mg/dL (8.6-10.3); Potassium 3.7 mEq/L (3.5-5.1)
[2019-08-13] MEDS: Chlorhexidine Rinse 15 ML MOUTHWASH MM SCH ×2 (08:22→20:58)
[2019-08-13] MEDS ORDERED: Pantoprazole 40 MG VIAL IVP SCH (09:00)
[2019-08-13] MEDS ORDERED: Albuterol 2.5 MG/3 ML NEBULIZER IH PRN (10:15)
[2019-08-13] MEDS: Hydrocortisone Sodium Succ 100 MG/2 ML VIAL IVP SCH ×2 (15:04→23:39)
[2019-08-13] MEDS: Ipratropium/Albuterol Neb 3 ML IH SCH ×2 (15:37→22:09)
[2019-08-13] MEDS ORDERED: Hydrocortisone Sodium Succ 100 MG/2 ML VIAL IVP SCH (18:00)
[2019-08-13 20:29] LABS: Hemoglobin 9.8 g/dL (11.5-15.4)
[2019-08-13 20:34] LABS: INR 1.1; Prothrombin Time 12.5 Seconds (9.4-12.1)
[2019-08-13 20:36] LABS: Activated Partial Thrombo Time 30.1 Seconds (26.0-36.0)
[2019-08-14] MEDS: Insulin LISPRO 300 UNITS/3 ML VIAL SQ SCH ×6 (00:13→20:01)
[2019-08-14] MEDS: Artificial Tears SOLN 15 ML BOTTLE BOTH EYES SCH ×3 (00:13→08:00)
[2019-08-14] MEDS: Pantoprazole 40 MG in 0.9 % Sodium Chloride Mini Bag 100 ML IVC SCH ×2 (01:30→05:51)
[2019-08-14] MEDS: Ipratropium/Albuterol Neb 3 ML IH SCH ×4 (03:36→22:11)
[2019-08-14 04:29] LABS: ABG Base Excess 4 mEq/L (-2 to 3); ABG HCO3 31 mEq/L (21-27); ABG Oxygen Saturation 93 % (95-98); ABG PCO2 56 mmHg (35-45); ABG PH 7.34 pH Units (7.32-7.45); ABG PO2 74 mmHg (85-104); ABG TCO2 32 mEq/L (20-26)
[2019-08-14 04:40] LABS: Basophils % 0.1 %; Hematocrit 26.6 % (35.3-44.9); Hemoglobin 8.5 g/dL (11.5-15.4); Immature Granulocytes % 0.5 % (0-4); Lymphocytes # 0.3 K/mcL (0.6-4.6); Lymphocytes % 3.2 %; Mean Corpuscular Hemoglobin 29.4 pg (28.0-33.3); Mean Platelet Volume 10.3 fL (9.4-12.4); Monocytes # 0.3 K/mcL (0.0-1.3); Monocytes % 3.6 %; Neutrophils # 8.6 K/mcL (1.6-8.9); Platelet Count 117 K/mcL (140-400); Red Blood Count 2.89 M/mcL (3.82-4.97); Red Cell Distribution Width 16.4 % (11.5-14.5); Segmented Neutrophils % 92.6 %; White Blood Count 9.3 K/mcL (4.3-11.1)
[2019-08-14 04:48] LABS: Acinetobacter baumannii by PCR Not Detected (Not Detect); Candida albicans by PCR Not Detected (Not Detect); Candida glabrata by PCR Not Detected (Not Detect); Candida krusei by PCR Not Detected (Not Detect); Candida parapsilosis by PCR Not Detected (Not Detect); Candida tropicalis by PCR Not Detected (Not Detect); Enterobacter cloacae Cmplx PCR Not Detected (Not Detect); Enterobacteriaceae by PCR Not Detected (Not Detect); Enterococcus by PCR Not Detected (Not Detect); Escherichia coli by PCR Not Detected (Not Detect); Klebsiella oxytoca by PCR Not Detected (Not Detect); Klebsiella pneumoniae by PCR Not Detected (Not Detect); Proteus by PCR Not Detected (Not Detect); Pseudomonas aeruginosa by PCR Not Detected (Not Detect); Serratia marcescens by PCR Not Detected (Not Detect); Staphylococcus aureus by PCR Not Detected (Not Detect); Staphylococcus by PCR DETECTED (Not Detect); Streptococcus agalactiae(B)PCR Not Detected (Not Detect); Streptococcus by PCR Not Detected (Not Detect); Streptococcus pneumoniae PCR Not Detected (Not Detect); Streptococcus pyogenes (A) PCR Not Detected (Not Detect); mecA Methicillin-Resist Gene DETECTED (Not Detect)
[2019-08-14 05:02] LABS: % Iron Saturation 6 % (15-50); Iron 12 mcg/dL (50-170); Transferrin 143 mg/dL (203-362)
[2019-08-14 05:09] LABS: Alanine Aminotransferase 6 Units/L (7-52); Albumin 2.9 g/dL (3.5-5.7); Albumin/Globulin Ratio 1.8 (1.1-2.2); Alkaline Phosphatase 31 Units/L (34-104); Aspartate Amino Transferase 11 Units/L (13-39); BUN/Creatinine Ratio 59 (6-26); Bilirubin,Total 0.4 mg/dL (0.3-1.0); Blood Urea Nitrogen 63 mg/dL (8-23); Calcium 7.5 mg/dL (8.6-10.3); Carbon Dioxide 29 mEq/L (23-29); Chloride 108 mEq/L (98-107); Globulin 1.6 g/dL (2.4-3.5); Glucose 174 mg/dL (70-105); Magnesium 1.6 mg/dL (1.6-2.6); Osmolality,Calculated 334 (280-300); Potassium 3.9 mEq/L (3.5-5.1); Sodium 151 mEq/L (136-145); Total Protein 4.5 g/dL (6.4-8.9); eGFR For African Americans > 60 (> 60); eGFR For Non-African Americans 50 (> 60)
[2019-08-14] MEDS ORDERED: Piperacillin/Tazobactam 3.375 GM in 0.9 % Sodium Chloride Mini Bag 100 ML IVPB SCH (08:00)
[2019-08-14] MEDS: Chlorhexidine Rinse 15 ML MOUTHWASH MM SCH ×2 (08:01→20:01)
[2019-08-14] MEDS: Dexmedetomidine HCl 400 MCG/100 ML MLS IVC SCH (08:50)
[2019-08-14] MEDS ORDERED: Ondansetron 4 MG/2 ML VIAL ONE (09:02)
[2019-08-14] MEDS ORDERED: Ondansetron 4 MG/2 ML VIAL IVP PRN ×2 (09:02→09:07)
[2019-08-14] MEDS ORDERED: Albuterol 2.5 MG/3 ML NEBULIZER IH PRN (09:07)
[2019-08-14] MEDS ORDERED: 0.9 % Sodium Chloride 250 ML IVC SCH ×2 (09:07)
[2019-08-14] MEDS ORDERED: Artificial Tears SOLN 15 ML BOTTLE BOTH EYES PRN (09:07)
[2019-08-14] MEDS ORDERED: *HR* LORazepam 0.5 MG TABLET PO PRN (09:16)
[2019-08-14] MEDS ORDERED: Chloraseptic Spray 177 ML BOTTLE MM PRN (09:17)
[2019-08-14] MEDS: Hydrocortisone Sodium Succ 100 MG/2 ML VIAL IVP SCH ×2 (12:33→23:14)
[2019-08-14 12:44] LABS: BUN/Creatinine Ratio 52 (6-26); Blood Urea Nitrogen 49 mg/dL (8-23); Calcium 7.2 mg/dL (8.6-10.3); Carbon Dioxide 32 mEq/L (23-29); Chloride 107 mEq/L (98-107); Glucose 94 mg/dL (70-105); Osmolality,Calculated 321 (280-300); Potassium 3.6 mEq/L (3.5-5.1); Sodium 149 mEq/L (136-145); eGFR For African Americans > 60 (> 60); eGFR For Non-African Americans 59 (> 60)
[2019-08-14] MEDS ORDERED: Hydrocortisone Sodium Succ 100 MG/2 ML VIAL IVP SCH (13:00)
[2019-08-14] MEDS: Piperacillin/Tazobactam 3.375 GM in 0.9 % Sodium Chloride Mini Bag 100 ML IVPB SCH ×2 (18:01→23:14)
[2019-08-14] MEDS ORDERED: Acetaminophen IV 1,000 MG/100 ML INFUS..BTL IVPB ONE (20:25)
[2019-08-14] MEDS ORDERED: D5% in Water 1,000 ML IVC PRN (23:47)
[2019-08-14] MEDS ORDERED: Dextrose Gel 15 GM/37.5 ML TUBE PO PRN ×2 (23:47)
[2019-08-14] MEDS: *HR* Dextrose 50 % in Water (Syg) 50 ML SYRINGE IVP PRN (23:55)
[2019-08-15] MEDS: Insulin LISPRO 300 UNITS/3 ML VIAL SQ SCH ×6 (00:15→20:17)
[2019-08-15 01:11] LABS: ABG Base Excess 5 mEq/L (-2 to 3); ABG HCO3 35 mEq/L (21-27); ABG Oxygen Saturation 99 % (95-98); ABG PCO2 87 mmHg (35-45); ABG PH 7.21 pH Units (7.32-7.45); ABG PO2 169 mmHg (85-104); ABG TCO2 38 mEq/L (20-26); Blood Gas Modality BiLevel
[2019-08-15] MEDS ORDERED: Furosemide 40 MG/4 ML VIAL IVP ONE (01:18)
[2019-08-15 01:24] LABS: Basophils % 0.1 %; Eosinophils % 0.1 %; Hematocrit 31.1 % (35.3-44.9); Hemoglobin 9.9 g/dL (11.5-15.4); Immature Granulocytes % 1.7 % (0-4); Lymphocytes # 0.4 K/mcL (0.6-4.6); Lymphocytes % 2.7 %; Mean Corpuscular HGB Conc 31.8 g/dL (31.6-35.5); Mean Corpuscular Hemoglobin 29.9 pg (28.0-33.3); Mean Platelet Volume 9.8 fL (9.4-12.4); Monocytes # 0.4 K/mcL (0.0-1.3); Monocytes % 3.1 %; Neutrophils # 11.8 K/mcL (1.6-8.9); Platelet Count 130 K/mcL (140-400); Red Blood Count 3.31 M/mcL (3.82-4.97); Segmented Neutrophils % 92.3 %; White Blood Count 12.8 K/mcL (4.3-11.1)
[2019-08-15 01:43] LABS: Alanine Aminotransferase 9 Units/L (7-52); Albumin 3.2 g/dL (3.5-5.7); Albumin/Globulin Ratio 1.5 (1.1-2.2); Alkaline Phosphatase 36 Units/L (34-104); Aspartate Amino Transferase 13 Units/L (13-39); BUN/Creatinine Ratio 36 (6-26); Bilirubin,Total 0.4 mg/dL (0.3-1.0); Blood Urea Nitrogen 36 mg/dL (8-23); Calcium 7.9 mg/dL (8.6-10.3); Carbon Dioxide 32 mEq/L (23-29); Chloride 111 mEq/L (98-107); Globulin 2.1 g/dL (2.4-3.5); Glucose 96 mg/dL (70-105); Osmolality,Calculated 312 (280-300); Potassium 3.7 mEq/L (3.5-5.1); Sodium 147 mEq/L (136-145); Total Protein 5.3 g/dL (6.4-8.9); eGFR For African Americans > 60 (> 60); eGFR For Non-African Americans 55 (> 60)
[2019-08-15] MEDS: Calcium Gluconate 1gm/50mL 1 GM/50 ML BAG IVPB SCH ×2 (01:47→03:06)
[2019-08-15 01:48] LABS: Troponin I 0.06 ng/mL (< 0.04)
[2019-08-15 02:30] LABS: ABG Base Excess 8 mEq/L (-2 to 3); ABG HCO3 35 mEq/L (21-27); ABG Oxygen Saturation 85 % (95-98); ABG PCO2 70 mmHg (35-45); ABG PH 7.31 pH Units (7.32-7.45); ABG PO2 58 mmHg (85-104); ABG TCO2 37 mEq/L (20-26); Blood Gas VT 550 cc
[2019-08-15] MEDS: Ipratropium/Albuterol Neb 3 ML IH SCH ×4 (03:49→22:26)
[2019-08-15] MEDS: *HR* Dextrose 50 % in Water (Syg) 50 ML SYRINGE IVP PRN (03:50)
[2019-08-15 04:45] LABS: ABG Base Excess 8 mEq/L (-2 to 3); ABG HCO3 36 mEq/L (21-27); ABG Oxygen Saturation 95 % (95-98); ABG PCO2 76 mmHg (35-45); ABG PH 7.28 pH Units (7.32-7.45); ABG PO2 86 mmHg (85-104); ABG TCO2 38 mEq/L (20-26); Blood Gas VT 550 cc
[2019-08-15 05:07] LABS: BUN/Creatinine Ratio 33 (6-26); Blood Urea Nitrogen 35 mg/dL (8-23); Calcium 8.1 mg/dL (8.6-10.3); Carbon Dioxide 32 mEq/L (23-29); Chloride 108 mEq/L (98-107); Glucose 150 mg/dL (70-105); Osmolality,Calculated 315 (280-300); Potassium 3.4 mEq/L (3.5-5.1); Sodium 147 mEq/L (136-145); eGFR For African Americans > 60 (> 60); eGFR For Non-African Americans 50 (> 60)
[2019-08-15 05:36] LABS: Basophils % 0.1 %; Eosinophils % 0.1 %; Hematocrit 28.8 % (35.3-44.9); Hemoglobin 9.1 g/dL (11.5-15.4); Immature Granulocytes % 0.6 % (0-4); Lymphocytes # 0.1 K/mcL (0.6-4.6); Lymphocytes % 1.2 %; Mean Corpuscular HGB Conc 31.6 g/dL (31.6-35.5); Mean Corpuscular Hemoglobin 29.4 pg (28.0-33.3); Mean Corpuscular Volume 92.9 fL (83.0-100.0); Mean Platelet Volume 10.5 fL (9.4-12.4); Monocytes # 0.3 K/mcL (0.0-1.3); Neutrophils # 9.3 K/mcL (1.6-8.9); Platelet Count 118 K/mcL (140-400); Red Cell Distribution Width 15.9 % (11.5-14.5); White Blood Count 9.8 K/mcL (4.3-11.1)
[2019-08-15] MEDS ORDERED: Aminoglycoside Consult 1 EACH MC ONE (07:50)
[2019-08-15] MEDS: Chlorhexidine Rinse 15 ML MOUTHWASH MM SCH ×2 (08:42→20:18)
[2019-08-15] MEDS: Piperacillin/Tazobactam 3.375 GM in 0.9 % Sodium Chloride Mini Bag 100 ML IVPB SCH ×3 (08:45→23:23)
[2019-08-15] MEDS ORDERED: predniSONE 20 MG TABLET PO SCH (09:00)
[2019-08-15 12:00] LABS: ABG Base Excess 9 mEq/L (-2 to 3); ABG HCO3 37 mEq/L (21-27); ABG Oxygen Saturation 90 % (95-98); ABG PCO2 70 mmHg (35-45); ABG PH 7.32 pH Units (7.32-7.45); ABG PO2 65 mmHg (85-104); ABG TCO2 39 mEq/L (20-26)
[2019-08-15] MEDS ORDERED: Acetaminophen 325 MG TABLET PO PRN (12:25)
[2019-08-15] MEDS: Gabapentin 300 MG CAPSULE PO SCH (20:18)
[2019-08-16] MEDS: Ipratropium/Albuterol Neb 3 ML IH SCH ×4 (04:05→22:24)
[2019-08-16 07:32] LABS: Basophils % 0.2 %; Eosinophils % 0.5 %; Hematocrit 24.6 % (35.3-44.9); Hemoglobin 8.1 g/dL (11.5-15.4); Lymphocytes # 0.5 K/mcL (0.6-4.6); Lymphocytes % 13.2 %; Mean Corpuscular HGB Conc 32.9 g/dL (31.6-35.5); Mean Corpuscular Hemoglobin 29.5 pg (28.0-33.3); Mean Corpuscular Volume 89.5 fL (83.0-100.0); Mean Platelet Volume 10.5 fL (9.4-12.4); Monocytes # 0.5 K/mcL (0.0-1.3); Monocytes % 12.2 %; Neutrophils # 2.9 K/mcL (1.6-8.9); Platelet Count 118 K/mcL (140-400); Red Blood Count 2.75 M/mcL (3.82-4.97); Red Cell Distribution Width 15.4 % (11.5-14.5); Segmented Neutrophils % 72.9 %
[2019-08-16 07:42] LABS: BUN/Creatinine Ratio 28 (6-26); Blood Urea Nitrogen 26 mg/dL (8-23); Calcium 7.8 mg/dL (8.6-10.3); Carbon Dioxide 36 mEq/L (23-29); Chloride 104 mEq/L (98-107); Glucose 105 mg/dL (70-105); Osmolality,Calculated 309 (280-300); Potassium 3.2 mEq/L (3.5-5.1); Sodium 147 mEq/L (136-145); eGFR For African Americans > 60 (> 60); eGFR For Non-African Americans 59 (> 60)
[2019-08-16] MEDS ORDERED: D5% in 0.45% NACL 1,000 ML IVC SCH (08:00)
[2019-08-16] MEDS: Insulin LISPRO 300 UNITS/3 ML VIAL SQ SCH ×4 (08:58→20:58)
[2019-08-16] MEDS: Aspirin Enteric Coated 81 MG Tablet PO SCH (08:59)
[2019-08-16] MEDS: Folic Acid 1 MG TABLET PO SCH (08:59)
[2019-08-16] MEDS: Furosemide 40 MG TABLET PO SCH (08:59)
[2019-08-16] MEDS: predniSONE 10 MG TABLET PO SCH (08:59)
[2019-08-16] MEDS: Piperacillin/Tazobactam 3.375 GM in 0.9 % Sodium Chloride Mini Bag 100 ML IVPB SCH (09:00)
[2019-08-16] MEDS: Chlorhexidine Rinse 15 ML MOUTHWASH MM SCH ×2 (09:01→20:58)
[2019-08-16] MEDS: amLODIPine 5 MG TABLET PO SCH (09:14)
[2019-08-16] MEDS: Budesonide/Formoterol 160/4.5 1 PUFF INH IH SCH ×2 (15:18→21:55)
[2019-08-16] MEDS ORDERED: *HR* Metoprolol 5 MG/5 ML VIAL IVP ONE (15:48)
[2019-08-16] MEDS: Gabapentin 300 MG CAPSULE PO SCH (20:58)
[2019-08-17] MEDS: Ipratropium/Albuterol Neb 3 ML IH SCH ×4 (03:46→21:58)
[2019-08-17] MEDS: Insulin LISPRO 300 UNITS/3 ML VIAL SQ SCH ×4 (07:28→19:46)
[2019-08-17] MEDS: Chlorhexidine Rinse 15 ML MOUTHWASH MM SCH ×2 (08:01→19:45)
[2019-08-17] MEDS: Aspirin Enteric Coated 81 MG Tablet PO SCH (08:01)
[2019-08-17] MEDS: amLODIPine 5 MG TABLET PO SCH (08:02)
[2019-08-17] MEDS: Furosemide 40 MG TABLET PO SCH (08:02)
[2019-08-17] MEDS: predniSONE 10 MG TABLET PO SCH (08:02)
[2019-08-17] MEDS: Folic Acid 1 MG TABLET PO SCH (08:02)
[2019-08-17 09:36] LABS: Basophils % 0.2 %; Eosinophils % 0.8 %; Hematocrit 27.3 % (35.3-44.9); Hemoglobin 9.1 g/dL (11.5-15.4); Immature Granulocytes % 0.4 % (0-4); Lymphocytes # 0.5 K/mcL (0.6-4.6); Lymphocytes % 9.9 %; Mean Corpuscular HGB Conc 33.3 g/dL (31.6-35.5); Mean Corpuscular Hemoglobin 29.6 pg (28.0-33.3); Mean Corpuscular Volume 88.9 fL (83.0-100.0); Mean Platelet Volume 11.6 fL (9.4-12.4); Monocytes # 0.4 K/mcL (0.0-1.3); Platelet Count 119 K/mcL (140-400); Red Blood Count 3.07 M/mcL (3.82-4.97); Red Cell Distribution Width 15.2 % (11.5-14.5); Segmented Neutrophils % 81.7 %; White Blood Count 5.2 K/mcL (4.3-11.1)
[2019-08-17 09:47] LABS: BUN/Creatinine Ratio 20 (6-26); Blood Urea Nitrogen 20 mg/dL (8-23); Calcium 7.8 mg/dL (8.6-10.3); Carbon Dioxide 34 mEq/L (23-29); Chloride 101 mEq/L (98-107); Glucose 163 mg/dL (70-105); Osmolality,Calculated 300 (280-300); Potassium 3.7 mEq/L (3.5-5.1); Sodium 142 mEq/L (136-145); eGFR For African Americans > 60 (> 60); eGFR For Non-African Americans 56 (> 60)
[2019-08-17 09:54] LABS: Neutrophils # 4.3 K/mcL (1.6-8.9)
[2019-08-17] MEDS: Budesonide/Formoterol 160/4.5 1 PUFF INH IH SCH ×2 (10:23→21:58)
[2019-08-17] MEDS: Metoprolol XL (24 HR) Succ 50 MG TAB.ER.24H PO SCH (11:17)
[2019-08-17] MEDS ORDERED: *HR* Metoprolol 5 MG/5 ML VIAL IVP ONE (12:19)
[2019-08-17] MEDS ORDERED: Perflutren Lipid Microsphere 1.3 ML in 0.9 % Sodium Chloride 8.7 ML IVP ONE (18:06)
[2019-08-17] MEDS: Gabapentin 300 MG CAPSULE PO SCH (19:45)
[2019-08-18] MEDS: Ipratropium/Albuterol Neb 3 ML IH SCH ×2 (05:00→10:09)
[2019-08-18 06:25] LABS: Basophils % 0.2 %; Eosinophils # 0.1 K/mcL (0.0-0.6); Eosinophils % 2.3 %; Hematocrit 28.3 % (35.3-44.9); Hemoglobin 9.2 g/dL (11.5-15.4); Immature Granulocytes % 0.6 % (0-4); Lymphocytes # 0.9 K/mcL (0.6-4.6); Lymphocytes % 18.8 %; Mean Corpuscular HGB Conc 32.5 g/dL (31.6-35.5); Mean Corpuscular Hemoglobin 29.9 pg (28.0-33.3); Mean Corpuscular Volume 91.9 fL (83.0-100.0); Mean Platelet Volume 9.7 fL (9.4-12.4); Monocytes # 0.4 K/mcL (0.0-1.3); Monocytes % 8.1 %; Neutrophils # 3.4 K/mcL (1.6-8.9); Platelet Count 150 K/mcL (140-400); Red Blood Count 3.08 M/mcL (3.82-4.97); White Blood Count 4.8 K/mcL (4.3-11.1)
[2019-08-18 06:47] LABS: BUN/Creatinine Ratio 18 (6-26); Blood Urea Nitrogen 19 mg/dL (8-23); Calcium 8.4 mg/dL (8.6-10.3); Carbon Dioxide 43 mEq/L (23-29); Chloride 97 mEq/L (98-107); Glucose 129 mg/dL (70-105); Osmolality,Calculated 302 (280-300); Potassium 3.5 mEq/L (3.5-5.1); Sodium 144 mEq/L (136-145); eGFR For African Americans > 60 (> 60); eGFR For Non-African Americans 52 (> 60)
[2019-08-18 07:06] VITALS: BP 159/79
[2019-08-18] MEDS: Folic Acid 1 MG TABLET PO SCH (08:18)
[2019-08-18] MEDS: Chlorhexidine Rinse 15 ML MOUTHWASH MM SCH (08:18)
[2019-08-18] MEDS: Aspirin Enteric Coated 81 MG Tablet PO SCH (08:18)
[2019-08-18] MEDS: Metoprolol XL (24 HR) Succ 50 MG TAB.ER.24H PO SCH (08:19)
[2019-08-18] MEDS: Furosemide 40 MG TABLET PO SCH (08:19)
[2019-08-18] MEDS: amLODIPine 5 MG TABLET PO SCH (08:19)
[2019-08-18] MEDS: Insulin LISPRO 300 UNITS/3 ML VIAL SQ SCH ×2 (08:27→11:57)
[2019-08-18] MEDS ORDERED: predniSONE 10 MG TABLET PO SCH (09:00)
[2019-08-18] MEDS: Budesonide/Formoterol 160/4.5 1 PUFF INH IH SCH (10:09)
[2019-08-18] MEDS ORDERED: Sucralfate 1 GM TABLET PO SCH (11:30)
== END 2019-08-18 12:47 | DRG 241 ==
LOC: ICNU 04:43 → EMEROOARM 04:43 → OBSVTOIN 09:17 → SUATTDRO 09:17 → ICNU 09:49 → 2ANU 08-14 12:50
PROVIDERS: ADMIT Internal Medicine Hospice and Palliative Medicine; ATTEND Pharmacist
PROC: ENDOEBX (2019-08-12 12:30)

== ENCOUNTER 2019-09-16 02:19 | Inpatient (IN) ==
[2019-09-16] MEDS ORDERED: methylPREDNISolone 125 MG/2 ML VIAL IVP ONE (02:58)
[2019-09-16] MEDS ORDERED: Ipratropium/Albuterol Neb 3 ML IH ONE (02:58)
[2019-09-16 03:34] LABS: ABG Base Excess 5 mEq/L (-2 to 3); ABG HCO3 33 mEq/L (21-27); ABG Oxygen Saturation 94 % (95-98); ABG PCO2 73 mmHg (35-45); ABG PH 7.27 pH Units (7.32-7.45); ABG PO2 85 mmHg (85-104); ABG TCO2 36 mEq/L (20-26)
[2019-09-16 03:42] LABS: Basophils % 0.4 %; Eosinophils # 0.3 K/mcL (0.0-0.6); Eosinophils % 5.5 %; Hematocrit 29.9 % (35.3-44.9); Hemoglobin 9.4 g/dL (11.5-15.4); Immature Granulocytes % 0.4 % (0-4); Immature Platelets 2.2 % (1.1-6.1); Lymphocytes # 0.9 K/mcL (0.6-4.6); Lymphocytes % 18.1 %; Mean Corpuscular HGB Conc 31.4 g/dL (31.6-35.5); Mean Corpuscular Hemoglobin 29.8 pg (28.0-33.3); Mean Corpuscular Volume 94.9 fL (83.0-100.0); Mean Platelet Volume 10.8 fL (9.4-12.4); Monocytes # 0.3 K/mcL (0.0-1.3); Monocytes % 6.1 %; Neutrophils # 3.4 K/mcL (1.6-8.9); Platelet Count 172 K/mcL (140-400); Red Blood Count 3.15 M/mcL (3.82-4.97); Red Cell Distribution Width 15.9 % (11.5-14.5); Segmented Neutrophils % 69.5 %; White Blood Count 4.9 K/mcL (4.3-11.1)
[2019-09-16 03:51] LABS: BUN/Creatinine Ratio 27 (6-26); Blood Urea Nitrogen 27 mg/dL (8-23); Calcium 8.7 mg/dL (8.6-10.3); Carbon Dioxide 29 mEq/L (23-29); Chloride 104 mEq/L (98-107); Glucose 127 mg/dL (70-105); Osmolality,Calculated 301 (280-300); Potassium 4.3 mEq/L (3.5-5.1); Sodium 142 mEq/L (136-145); eGFR For African Americans > 60 (> 60); eGFR For Non-African Americans 54 (> 60)
[2019-09-16 04:01] LABS: Troponin I 0.11 ng/mL (< 0.04)
[2019-09-16] MEDS ORDERED: Mag Hydrox/Al Hydrox/Simeth 30 ML UDC PO PRN (05:31)
[2019-09-16] MEDS ORDERED: Furosemide 40 MG/4 ML VIAL IVP SCH (05:31)
[2019-09-16] MEDS ORDERED: Ondansetron ODT 4 MG TAB.RAPDIS SL PRN (05:31)
[2019-09-16] MEDS ORDERED: Albuterol 2.5 MG/3 ML NEBULIZER IH PRN (05:33)
[2019-09-16] MEDS ORDERED: *HR* Dextrose 50 % in Water (Syg) 50 ML SYRINGE IVP PRN (05:33)
[2019-09-16] MEDS ORDERED: D5% in Water 1,000 ML IVC PRN (05:33)
[2019-09-16] MEDS ORDERED: Dextrose Gel 15 GM/37.5 ML TUBE PO PRN ×2 (05:33)
[2019-09-16] MEDS ORDERED: MethylPREDNISolone 40 MG/ML VIAL IVP SCH (06:00)
[2019-09-16] MEDS: Azithromycin 500 MG in 0.9 % Sodium Chloride 250 ML IVPB SCH (06:57)
[2019-09-16] MEDS: Nicotine 14 MG PATCH.TD24 TD SCH (08:51)
[2019-09-16] MEDS: Insulin LISPRO 300 UNITS/3 ML VIAL SQ SCH ×3 (08:51→17:46)
[2019-09-16] MEDS: Ipratropium/Albuterol Neb 3 ML IH SCH ×5 (10:30→23:38)
[2019-09-16 10:42] LABS: Adenovirus Not Detected (Not Detect); Coronavirus 229E Not Detected (Not Detect); Coronavirus HKU1 Not Detected (Not Detect); Coronavirus NL63 Not Detected (Not Detect); Coronavirus OC43 Not Detected (Not Detect); Human Metapneumovirus Not Detected (Not Detect)
[2019-09-16 10:43] LABS: Bordetella Pertussis Not Detected (Not Detect); Chlamydophila pneumoniae Not Detected (Not Detect); Human Rhinovirus/Enterovirus DETECTED (Not Detect); Influenza A Subtype 2009 H1 Not Detected (Not Detect); Influenza B Not Detected (Not Detect); Mycoplasma pneumoniae Not Detected (Not Detect); Parainfluenza Virus 1 Not Detected (Not Detect); Parainfluenza Virus 2 Not Detected (Not Detect); Parainfluenza Virus 3 Not Detected (Not Detect); Parainfluenza Virus 4 Not Detected (Not Detect); Respiratory Syncytial Virus DETECTED (Not Detect)
[2019-09-16 10:46] LABS: ABG Base Excess 8 mEq/L (-2 to 3); ABG HCO3 37 mEq/L (21-27); ABG Oxygen Saturation 97 % (95-98); ABG PCO2 73 mmHg (35-45); ABG PH 7.31 pH Units (7.32-7.45); ABG PO2 107 mmHg (85-104); ABG TCO2 39 mEq/L (20-26)
[2019-09-16] MEDS ORDERED: Ipratropium/Albuterol Neb 3 ML IH SCH (11:00)
[2019-09-16] MEDS: MethylPREDNISolone 40 MG/ML VIAL IVP SCH (17:46)
[2019-09-17] MEDS: *HR* LORazepam 2 MG/ML VIAL IVP ONE ×2 (00:45→22:36)
[2019-09-17] MEDS: Ipratropium/Albuterol Neb 3 ML IH SCH ×5 (04:25→19:51)
[2019-09-17 04:52] LABS: Basophils % 0.3 %; Eosinophils % 0.3 %; Hemoglobin 8.9 g/dL (11.5-15.4); Immature Granulocytes % 0.8 % (0-4); Lymphocytes # 0.6 K/mcL (0.6-4.6); Lymphocytes % 15.4 %; Mean Corpuscular HGB Conc 30.7 g/dL (31.6-35.5); Mean Corpuscular Hemoglobin 29.8 pg (28.0-33.3); Mean Platelet Volume 9.8 fL (9.4-12.4); Monocytes # 0.1 K/mcL (0.0-1.3); Monocytes % 3.1 %; Neutrophils # 3.1 K/mcL (1.6-8.9); Platelet Count 217 K/mcL (140-400); Red Blood Count 2.99 M/mcL (3.82-4.97); Red Cell Distribution Width 15.3 % (11.5-14.5); Segmented Neutrophils % 80.1 %; White Blood Count 3.8 K/mcL (4.3-11.1)
[2019-09-17 05:15] LABS: Calcium 8.7 mg/dL (8.6-10.3); Potassium 3.9 mEq/L (3.5-5.1)
[2019-09-17] MEDS: MethylPREDNISolone 40 MG/ML VIAL IVP SCH ×2 (06:27→17:33)
[2019-09-17] MEDS: Azithromycin 500 MG in 0.9 % Sodium Chloride 250 ML IVPB SCH (06:27)
[2019-09-17] MEDS: Nicotine 14 MG PATCH.TD24 TD SCH (08:27)
[2019-09-17] MEDS: Insulin LISPRO 300 UNITS/3 ML VIAL SQ SCH ×3 (08:33→17:32)
[2019-09-17] MEDS ORDERED: Naloxone 0.4 MG/ML INJ IVP PRN (13:10)
[2019-09-17] MEDS ORDERED: Acetaminophen 325 MG TABLET PO PRN (13:10)
[2019-09-17] MEDS: Sucralfate 1 GM TABLET PO SCH ×2 (17:33→22:35)
[2019-09-17] MEDS: *HR* HYDROcodone/Acet 5/325 mg TABLET PO PRN (17:33)
[2019-09-17] MEDS ORDERED: *HR* LORazepam 2 MG/ML VIAL IVP ONE (19:37)
[2019-09-17] MEDS: Budesonide/Formoterol 160/4.5 1 PUFF INH IH SCH (19:57)
[2019-09-17] MEDS: Gabapentin 300 MG CAPSULE PO SCH ×2 (22:35→22:40)
[2019-09-18] MEDS: Ipratropium/Albuterol Neb 3 ML IH SCH ×6 (00:03→20:07)
[2019-09-18 05:06] LABS: Basophils % 0.2 %; Eosinophils # 0.2 K/mcL (0.0-0.6); Eosinophils % 3.1 %; Hematocrit 27.5 % (35.3-44.9); Hemoglobin 8.6 g/dL (11.5-15.4); Immature Granulocytes % 0.4 % (0-4); Lymphocytes # 1.1 K/mcL (0.6-4.6); Lymphocytes % 19.4 %; Mean Corpuscular HGB Conc 31.3 g/dL (31.6-35.5); Mean Corpuscular Hemoglobin 30.4 pg (28.0-33.3); Mean Corpuscular Volume 97.2 fL (83.0-100.0); Mean Platelet Volume 9.9 fL (9.4-12.4); Monocytes # 0.1 K/mcL (0.0-1.3); Monocytes % 1.3 %; Neutrophils # 4.1 K/mcL (1.6-8.9); Platelet Count 234 K/mcL (140-400); Red Blood Count 2.83 M/mcL (3.82-4.97); Red Cell Distribution Width 15.2 % (11.5-14.5); Segmented Neutrophils % 75.6 %; White Blood Count 5.5 K/mcL (4.3-11.1)
[2019-09-18 05:18] LABS: BUN/Creatinine Ratio 33 (6-26); Blood Urea Nitrogen 27 mg/dL (8-23); Calcium 8.5 mg/dL (8.6-10.3); Carbon Dioxide 35 mEq/L (23-29); Chloride 103 mEq/L (98-107); Glucose 133 mg/dL (70-105); Magnesium 1.8 mg/dL (1.6-2.6); Osmolality,Calculated 301 (280-300); Potassium 3.3 mEq/L (3.5-5.1); Sodium 142 mEq/L (136-145); eGFR For African Americans > 60 (> 60); eGFR For Non-African Americans > 60 (> 60)
[2019-09-18] MEDS: *HR* HYDROcodone/Acet 5/325 mg TABLET PO PRN (06:22)
[2019-09-18] MEDS: MethylPREDNISolone 40 MG/ML VIAL IVP SCH ×2 (06:23→21:45)
[2019-09-18] MEDS: Azithromycin 500 MG in 0.9 % Sodium Chloride 250 ML IVPB SCH (06:23)
[2019-09-18] MEDS: Budesonide/Formoterol 160/4.5 1 PUFF INH IH SCH ×2 (07:41→20:07)
[2019-09-18] MEDS: Aspirin Enteric Coated 81 MG Tablet PO SCH (09:26)
[2019-09-18] MEDS: Sucralfate 1 GM TABLET PO SCH ×4 (09:26→21:58)
[2019-09-18] MEDS: Furosemide 40 MG TABLET PO SCH (09:26)
[2019-09-18] MEDS: Metoprolol XL (24 HR) Succ 50 MG TAB.ER.24H PO SCH (09:26)
[2019-09-18] MEDS: amLODIPine 5 MG TABLET PO SCH (09:26)
[2019-09-18] MEDS: Nicotine 14 MG PATCH.TD24 TD SCH (09:27)
[2019-09-18] MEDS: Insulin LISPRO 300 UNITS/3 ML VIAL SQ SCH ×3 (09:29→17:19)
[2019-09-18] MEDS: Azithromycin 250 MG TABLET PO SCH (15:47)
[2019-09-18] MEDS: Gabapentin 300 MG CAPSULE PO SCH (21:58)
[2019-09-19] MEDS: Ipratropium/Albuterol Neb 3 ML IH SCH ×6 (00:28→20:08)
[2019-09-19 05:22] LABS: Hematocrit 26.3 % (35.3-44.9); Hemoglobin 8.1 g/dL (11.5-15.4); Mean Corpuscular HGB Conc 30.8 g/dL (31.6-35.5); Mean Corpuscular Hemoglobin 29.1 pg (28.0-33.3); Mean Corpuscular Volume 94.6 fL (83.0-100.0); Mean Platelet Volume 11.1 fL (9.4-12.4); Platelet Count 163 K/mcL (140-400); Red Blood Count 2.78 M/mcL (3.82-4.97); Red Cell Distribution Width 14.9 % (11.5-14.5); White Blood Count 6.4 K/mcL (4.3-11.1)
[2019-09-19 05:44] LABS: BUN/Creatinine Ratio 27 (6-26); Blood Urea Nitrogen 29 mg/dL (8-23); Calcium 8.4 mg/dL (8.6-10.3); Carbon Dioxide 31 mEq/L (23-29); Chloride 102 mEq/L (98-107); Glucose 136 mg/dL (70-105); Magnesium 1.9 mg/dL (1.6-2.6); Osmolality,Calculated 300 (280-300); Sodium 141 mEq/L (136-145); eGFR For African Americans > 60 (> 60); eGFR For Non-African Americans 51 (> 60)
[2019-09-19] MEDS: MethylPREDNISolone 40 MG/ML VIAL IVP SCH ×2 (05:54→18:05)
[2019-09-19] MEDS: Azithromycin 250 MG TABLET PO SCH (05:54)
[2019-09-19] MEDS: Furosemide 40 MG TABLET PO SCH (08:40)
[2019-09-19] MEDS: Metoprolol XL (24 HR) Succ 50 MG TAB.ER.24H PO SCH (08:40)
[2019-09-19] MEDS: Sucralfate 1 GM TABLET PO SCH ×4 (08:40→22:59)
[2019-09-19] MEDS: Nicotine 14 MG PATCH.TD24 TD SCH (08:40)
[2019-09-19] MEDS: Aspirin Enteric Coated 81 MG Tablet PO SCH (08:40)
[2019-09-19] MEDS: amLODIPine 5 MG TABLET PO SCH (08:40)
[2019-09-19] MEDS: *HR* HYDROcodone/Acet 5/325 mg TABLET PO PRN ×2 (08:44→23:18)
[2019-09-19] MEDS: Insulin LISPRO 300 UNITS/3 ML VIAL SQ SCH ×3 (08:44→16:27)
[2019-09-19] MEDS: Budesonide/Formoterol 160/4.5 1 PUFF INH IH SCH ×2 (11:20→20:08)
[2019-09-19] MEDS: Gabapentin 300 MG CAPSULE PO SCH (22:59)
[2019-09-20] MEDS: Ipratropium/Albuterol Neb 3 ML IH SCH ×7 (00:01→23:04)
[2019-09-20 05:04] LABS: Basophils % 0.2 %; Eosinophils % 0.2 %; Hematocrit 27.7 % (35.3-44.9); Hemoglobin 8.7 g/dL (11.5-15.4); Immature Granulocytes % 0.8 % (0-4); Lymphocytes # 0.6 K/mcL (0.6-4.6); Lymphocytes % 9.2 %; Mean Corpuscular HGB Conc 31.4 g/dL (31.6-35.5); Mean Corpuscular Hemoglobin 30.3 pg (28.0-33.3); Mean Corpuscular Volume 96.5 fL (83.0-100.0); Monocytes # 0.1 K/mcL (0.0-1.3); Monocytes % 1.8 %; Neutrophils # 5.3 K/mcL (1.6-8.9); Platelet Count 260 K/mcL (140-400); Red Blood Count 2.87 M/mcL (3.82-4.97); Red Cell Distribution Width 14.6 % (11.5-14.5); Segmented Neutrophils % 87.8 %; White Blood Count 6.1 K/mcL (4.3-11.1)
[2019-09-20 05:49] LABS: Platelet Estimate Normal (Normal)
[2019-09-20] MEDS ORDERED: predniSONE 20 MG TABLET PO ONE (06:00)
[2019-09-20] MEDS: Azithromycin 250 MG TABLET PO SCH (06:25)
[2019-09-20 06:42] LABS: Calcium 8.6 mg/dL (8.6-10.3); Potassium 4.4 mEq/L (3.5-5.1)
[2019-09-20] MEDS: Budesonide/Formoterol 160/4.5 1 PUFF INH IH SCH ×2 (07:27→20:32)
[2019-09-20] MEDS: amLODIPine 5 MG TABLET PO SCH (08:04)
[2019-09-20] MEDS: Aspirin Enteric Coated 81 MG Tablet PO SCH (08:04)
[2019-09-20] MEDS: Furosemide 40 MG TABLET PO SCH (08:04)
[2019-09-20] MEDS: Sucralfate 1 GM TABLET PO SCH ×4 (08:04→21:11)
[2019-09-20] MEDS: Metoprolol XL (24 HR) Succ 50 MG TAB.ER.24H PO SCH (08:04)
[2019-09-20] MEDS: Nicotine 14 MG PATCH.TD24 TD SCH (08:05)
[2019-09-20] MEDS: *HR* HYDROcodone/Acet 5/325 mg TABLET PO PRN ×2 (08:08→21:11)
[2019-09-20] MEDS: Insulin LISPRO 300 UNITS/3 ML VIAL SQ SCH ×3 (08:23→17:05)
[2019-09-20] MEDS: MethylPREDNISolone 40 MG/ML VIAL IVP SCH (17:05)
[2019-09-20] MEDS: Gabapentin 300 MG CAPSULE PO SCH (21:11)
[2019-09-21] MEDS: Ipratropium/Albuterol Neb 3 ML IH SCH ×5 (03:53→20:46)
[2019-09-21] MEDS: MethylPREDNISolone 40 MG/ML VIAL IVP SCH ×2 (06:27→17:05)
[2019-09-21 07:10] LABS: BUN/Creatinine Ratio 34 (6-26); Blood Urea Nitrogen 37 mg/dL (8-23); Calcium 8.7 mg/dL (8.6-10.3); Carbon Dioxide 37 mEq/L (23-29); Chloride 97 mEq/L (98-107); Glucose 192 mg/dL (70-105); Osmolality,Calculated 302 (280-300); Sodium 139 mEq/L (136-145); eGFR For African Americans > 60 (> 60); eGFR For Non-African Americans 50 (> 60)
[2019-09-21 07:30] LABS: Basophils % 0.2 %; Eosinophils % 0.6 %; Hematocrit 25.5 % (35.3-44.9); Hemoglobin 8.3 g/dL (11.5-15.4); Immature Granulocytes % 2.3 % (0-4); Lymphocytes # 0.9 K/mcL (0.6-4.6); Lymphocytes % 17.6 %; Mean Corpuscular HGB Conc 32.5 g/dL (31.6-35.5); Mean Corpuscular Hemoglobin 29.6 pg (28.0-33.3); Mean Corpuscular Volume 91.1 fL (83.0-100.0); Monocytes # 0.3 K/mcL (0.0-1.3); Monocytes % 6.1 %; Neutrophils # 3.8 K/mcL (1.6-8.9); Platelet Count 264 K/mcL (140-400); Red Cell Distribution Width 14.7 % (11.5-14.5); Segmented Neutrophils % 73.2 %; White Blood Count 5.2 K/mcL (4.3-11.1)
[2019-09-21] MEDS: Budesonide/Formoterol 160/4.5 1 PUFF INH IH SCH ×2 (07:37→20:46)
[2019-09-21] MEDS: amLODIPine 5 MG TABLET PO SCH (08:49)
[2019-09-21] MEDS: Nicotine 14 MG PATCH.TD24 TD SCH (08:49)
[2019-09-21] MEDS: Metoprolol XL (24 HR) Succ 50 MG TAB.ER.24H PO SCH (08:49)
[2019-09-21] MEDS: Aspirin Enteric Coated 81 MG Tablet PO SCH (08:49)
[2019-09-21] MEDS: *HR* HYDROcodone/Acet 5/325 mg TABLET PO PRN ×2 (08:49→17:05)
[2019-09-21] MEDS: Sucralfate 1 GM TABLET PO SCH ×4 (08:50→21:33)
[2019-09-21] MEDS: Furosemide 40 MG TABLET PO SCH (08:50)
[2019-09-21] MEDS: Insulin LISPRO 300 UNITS/3 ML VIAL SQ SCH ×3 (08:51→17:06)
[2019-09-21] MEDS: Gabapentin 300 MG CAPSULE PO SCH (21:33)
[2019-09-22] MEDS: Ipratropium/Albuterol Neb 3 ML IH SCH ×5 (00:08→16:27)
[2019-09-22] MEDS: *HR* HYDROcodone/Acet 5/325 mg TABLET PO PRN (03:09)
[2019-09-22 04:27] LABS: Basophils % 0.2 %; Eosinophils % 0.2 %; Hematocrit 26.8 % (35.3-44.9); Hemoglobin 8.4 g/dL (11.5-15.4); Lymphocytes # 0.8 K/mcL (0.6-4.6); Lymphocytes % 12.4 %; Mean Corpuscular HGB Conc 31.3 g/dL (31.6-35.5); Mean Corpuscular Hemoglobin 29.8 pg (28.0-33.3); Mean Platelet Volume 10.2 fL (9.4-12.4); Monocytes # 0.3 K/mcL (0.0-1.3); Monocytes % 5.3 %; Neutrophils # 4.9 K/mcL (1.6-8.9); Platelet Count 263 K/mcL (140-400); Red Blood Count 2.82 M/mcL (3.82-4.97); Red Cell Distribution Width 14.9 % (11.5-14.5); Segmented Neutrophils % 78.9 %; White Blood Count 6.2 K/mcL (4.3-11.1)
[2019-09-22 04:32] LABS: Calcium 9.1 mg/dL (8.6-10.3); Potassium 4.1 mEq/L (3.5-5.1)
[2019-09-22] MEDS: MethylPREDNISolone 40 MG/ML VIAL IVP SCH (05:51)
[2019-09-22] MEDS: Budesonide/Formoterol 160/4.5 1 PUFF INH IH SCH (07:19)
[2019-09-22 07:36] VITALS: BP 171/73
[2019-09-22] MEDS: Sucralfate 1 GM TABLET PO SCH ×2 (08:26→12:12)
[2019-09-22] MEDS: Aspirin Enteric Coated 81 MG Tablet PO SCH (08:26)
[2019-09-22] MEDS: Metoprolol XL (24 HR) Succ 50 MG TAB.ER.24H PO SCH (08:26)
[2019-09-22] MEDS: Insulin LISPRO 300 UNITS/3 ML VIAL SQ SCH ×2 (08:26→12:16)
[2019-09-22] MEDS: amLODIPine 5 MG TABLET PO SCH (08:26)
[2019-09-22] MEDS: Furosemide 40 MG TABLET PO SCH (08:26)
[2019-09-22] MEDS: Nicotine 14 MG PATCH.TD24 TD SCH (08:26)
== END 2019-09-22 16:42 | disposition home or self-care (01) | DRG 194 ==
LOC: 2NENU 02:19 → EMEROOARM 02:19 → SUATTDRO 05:31 → 2NENU 06:03
PROVIDERS: ADMIT Student in an Organized Health Care Education/Training Program; ATTEND Internal Medicine

== ENCOUNTER 2019-09-29 19:46 | Inpatient (IN) ==
[2019-09-29] MEDS ORDERED: Ipratropium/Albuterol Neb 3 ML IH ONE (19:56)
[2019-09-29] MEDS ORDERED: methylPREDNISolone 125 MG/2 ML VIAL IVP ONE (19:56)
[2019-09-29] MEDS ORDERED: *HR* OxyCODONE Immed Rel 5 MG TABLET PO STA (20:00)
[2019-09-29 20:35] LABS: Basophils % 0.2 %; Eosinophils # 0.4 K/mcL (0.0-0.6); Eosinophils % 4.8 %; Hematocrit 32.3 % (35.3-44.9); Immature Granulocytes % 0.6 % (0-4); Lymphocytes # 0.6 K/mcL (0.6-4.6); Lymphocytes % 6.6 %; Mean Platelet Volume 10.4 fL (9.4-12.4); Monocytes # 0.3 K/mcL (0.0-1.3); Monocytes % 4.1 %; Platelet Count 245 K/mcL (140-400); Red Blood Count 3.33 M/mcL (3.82-4.97); Red Cell Distribution Width 14.6 % (11.5-14.5); Segmented Neutrophils % 83.7 %; White Blood Count 8.4 K/mcL (4.3-11.1)
[2019-09-29 20:49] LABS: VBG HCO3 40 mEq/L (21-27); VBG PCO2 107 mmHg (41-51); VBG PH 7.18 pH Units (7.32-7.42); VBG PO2 50 mmHg (25-50)
[2019-09-29 21:01] LABS: BUN/Creatinine Ratio 19 (6-26); Blood Urea Nitrogen 21 mg/dL (8-23); Calcium 9.8 mg/dL (8.6-10.3); Carbon Dioxide 37 mEq/L (23-29); Chloride 101 mEq/L (98-107); Glucose 162 mg/dL (70-105); Osmolality,Calculated 307 (280-300); Potassium 4.3 mEq/L (3.5-5.1); Sodium 145 mEq/L (136-145); eGFR For African Americans > 60 (> 60); eGFR For Non-African Americans 50 (> 60)
[2019-09-29 21:02] LABS: Troponin I 0.03 ng/mL (< 0.04)
[2019-09-29] MEDS ORDERED: levoFLOXacin 750 MG/150 ML 750 MG/150 ML BAG IVPB STA (21:31)
[2019-09-29] MEDS ORDERED: Cefepime HCl 2,000 MG in Water for inj. (sterile) 20 ML IVP STA (21:31)
[2019-09-29 22:18] LABS: VBG HCO3 38 mEq/L (21-27); VBG PCO2 74 mmHg (41-51); VBG PH 7.32 pH Units (7.32-7.42); VBG PO2 91 mmHg (25-50)
[2019-09-29] MEDS ORDERED: Naloxone 0.4 MG/ML INJ IVP PRN (23:48)
[2019-09-30] MEDS ORDERED: *HR* Dextrose 50 % in Water (Syg) 50 ML SYRINGE IVP PRN (00:18)
[2019-09-30] MEDS ORDERED: D5% in Water 1,000 ML IVC PRN (00:18)
[2019-09-30] MEDS ORDERED: Dextrose Gel 15 GM/37.5 ML TUBE PO PRN ×2 (00:18)
[2019-09-30 01:52] LABS: Basophils % 0.1 %; Eosinophils % 0.3 %; Hematocrit 30.9 % (35.3-44.9); Hemoglobin 9.2 g/dL (11.5-15.4); Immature Granulocytes % 0.5 % (0-4); Lymphocytes # 0.2 K/mcL (0.6-4.6); Lymphocytes % 2.2 %; Mean Corpuscular HGB Conc 29.8 g/dL (31.6-35.5); Mean Corpuscular Hemoglobin 29.4 pg (28.0-33.3); Mean Corpuscular Volume 98.7 fL (83.0-100.0); Mean Platelet Volume 10.6 fL (9.4-12.4); Monocytes # 0.1 K/mcL (0.0-1.3); Monocytes % 0.5 %; Neutrophils # 9.4 K/mcL (1.6-8.9); Platelet Count 203 K/mcL (140-400); Red Blood Count 3.13 M/mcL (3.82-4.97); Red Cell Distribution Width 14.5 % (11.5-14.5); Segmented Neutrophils % 96.4 %; White Blood Count 9.7 K/mcL (4.3-11.1)
[2019-09-30 02:08] LABS: BUN/Creatinine Ratio 22 (6-26); Blood Urea Nitrogen 23 mg/dL (8-23); Calcium 9.5 mg/dL (8.6-10.3); Carbon Dioxide 35 mEq/L (23-29); Chloride 102 mEq/L (98-107); Glucose 307 mg/dL (70-105); Osmolality,Calculated 311 (280-300); Potassium 4.7 mEq/L (3.5-5.1); Sodium 143 mEq/L (136-145); eGFR For African Americans > 60 (> 60); eGFR For Non-African Americans 51 (> 60)
[2019-09-30 05:52] LABS: ABG Base Excess 9 mEq/L (-2 to 3); ABG HCO3 38 mEq/L (21-27); ABG Oxygen Saturation 97 % (95-98); ABG PCO2 83 mmHg (35-45); ABG PH 7.27 pH Units (7.32-7.45); ABG PO2 114 mmHg (85-104); ABG TCO2 40 mEq/L (20-26); Blood Gas Pressure Support 8 cm H2O; Blood Gas VT 500 cc
[2019-09-30] MEDS: *HR* Heparin 5,000 UNIT/ML VIAL SQ SCH ×3 (06:42→20:18)
[2019-09-30 08:02] LABS: ABG Base Excess 12 mEq/L (-2 to 3); ABG HCO3 39 mEq/L (21-27); ABG Oxygen Saturation 96 % (95-98); ABG PCO2 62 mmHg (35-45); ABG PO2 86 mmHg (85-104); ABG TCO2 41 mEq/L (20-26); Blood Gas VT 500 cc
[2019-09-30] MEDS: MethylPREDNISolone 40 MG/ML VIAL IVP SCH ×3 (08:44→23:30)
[2019-09-30] MEDS: Furosemide 40 MG/4 ML VIAL IVP SCH (08:45)
[2019-09-30] MEDS: Insulin LISPRO 300 UNITS/3 ML VIAL SQ SCH ×3 (08:47→17:31)
[2019-09-30] MEDS ORDERED: Acetaminophen 325 MG TABLET PO PRN (11:55)
[2019-09-30] MEDS: *HR* OxyCODONE/APAP 5/325 TABLET PO PRN ×2 (14:35→23:30)
[2019-09-30] MEDS: Sucralfate 1 GM TABLET PO SCH ×3 (14:35→20:18)
[2019-09-30] MEDS: Ipratropium/Albuterol Neb 3 ML IH PRN (17:12)
[2019-09-30] MEDS: Gabapentin 300 MG CAPSULE PO SCH (20:21)
[2019-09-30] MEDS ORDERED: *HR* LORazepam 2 MG/ML VIAL IVP ONE (21:54)
[2019-09-30] MEDS: Budesonide/Formoterol 160/4.5 1 PUFF INH IH SCH (23:09)
[2019-10-01 03:51] LABS: Basophils % 0.1 %; Eosinophils % 0.1 %; Hematocrit 28.5 % (35.3-44.9); Hemoglobin 8.7 g/dL (11.5-15.4); Immature Granulocytes % 0.8 % (0-4); Lymphocytes # 0.3 K/mcL (0.6-4.6); Lymphocytes % 4.5 %; Mean Corpuscular HGB Conc 30.5 g/dL (31.6-35.5); Mean Corpuscular Hemoglobin 29.7 pg (28.0-33.3); Mean Corpuscular Volume 97.3 fL (83.0-100.0); Mean Platelet Volume 10.3 fL (9.4-12.4); Monocytes # 0.1 K/mcL (0.0-1.3); Monocytes % 1.4 %; Neutrophils # 6.6 K/mcL (1.6-8.9); Platelet Count 216 K/mcL (140-400); Red Blood Count 2.93 M/mcL (3.82-4.97); Red Cell Distribution Width 14.6 % (11.5-14.5); Segmented Neutrophils % 93.1 %; White Blood Count 7.1 K/mcL (4.3-11.1)
[2019-10-01 04:08] LABS: Calcium 9.4 mg/dL (8.6-10.3); Potassium 4.7 mEq/L (3.5-5.1)
[2019-10-01] MEDS ORDERED: *HR* LORazepam 2 MG/ML VIAL IVP ONE (04:18)
[2019-10-01 04:39] LABS: ABG Base Excess 13 mEq/L (-2 to 3); ABG HCO3 39 mEq/L (21-27); ABG Oxygen Saturation 88 % (95-98); ABG PCO2 56 mmHg (35-45); ABG PH 7.45 pH Units (7.32-7.45); ABG PO2 55 mmHg (85-104); ABG TCO2 41 mEq/L (20-26)
[2019-10-01] MEDS: *HR* Heparin 5,000 UNIT/ML VIAL SQ SCH ×3 (05:35→20:59)
[2019-10-01] MEDS: Ipratropium/Albuterol Neb 3 ML IH PRN ×4 (06:44→19:59)
[2019-10-01] MEDS: Metoprolol XL (24 HR) Succ 50 MG TAB.ER.24H PO SCH (08:44)
[2019-10-01] MEDS: Aspirin Enteric Coated 81 MG Tablet PO SCH (08:45)
[2019-10-01] MEDS: Sucralfate 1 GM TABLET PO SCH ×4 (08:45→20:59)
[2019-10-01] MEDS: Folic Acid 1 MG TABLET PO SCH (08:45)
[2019-10-01] MEDS: Cholecalciferol (D-3) 1,000 UNIT (25MCG) TABLET PO SCH (08:46)
[2019-10-01] MEDS: Nicotine 7 MG PATCH.TD24 TD SCH (08:46)
[2019-10-01] MEDS: MethylPREDNISolone 40 MG/ML VIAL IVP SCH ×2 (08:48→16:00)
[2019-10-01] MEDS: Insulin DETEMIR 100 UNIT/ML X5UNITS SQ SCH (08:49)
[2019-10-01] MEDS: Insulin LISPRO 300 UNITS/3 ML VIAL SQ SCH ×3 (08:52→16:45)
[2019-10-01] MEDS ORDERED: amLODIPine 5 MG TABLET PO SCH (09:00)
[2019-10-01] MEDS ORDERED: levoFLOXacin 750 MG/150 ML 750 MG/150 ML BAG IVPB SCH ×2 (09:00→18:00)
[2019-10-01] MEDS ORDERED: (Roflumilast [Daliresp] 500 MCG) PO SCH (09:00)
[2019-10-01] MEDS ORDERED: Spironolactone 25 MG TABLET PO SCH (09:00)
[2019-10-01] MEDS ORDERED: hydrOXYzine pamoate 25 MG CAPSULE PO ONE (09:40)
[2019-10-01] MEDS: Budesonide/Formoterol 160/4.5 1 PUFF INH IH SCH ×2 (10:45→19:59)
[2019-10-01] MEDS: Acetaminophen 325 MG TABLET PO PRN (12:50)
[2019-10-01] MEDS: *HR* OxyCODONE/APAP 5/325 TABLET PO PRN (18:57)
[2019-10-01] MEDS: Gabapentin 300 MG CAPSULE PO SCH (21:01)
[2019-10-02 00:50] LABS: Basophils % 0.1 %; Hematocrit 26.7 % (35.3-44.9); Hemoglobin 8.7 g/dL (11.5-15.4); Immature Granulocytes % 0.5 % (0-4); Lymphocytes # 0.4 K/mcL (0.6-4.6); Mean Corpuscular HGB Conc 32.6 g/dL (31.6-35.5); Mean Corpuscular Hemoglobin 30.1 pg (28.0-33.3); Mean Corpuscular Volume 92.4 fL (83.0-100.0); Mean Platelet Volume 10.9 fL (9.4-12.4); Monocytes # 0.2 K/mcL (0.0-1.3); Monocytes % 1.9 %; Neutrophils # 8.8 K/mcL (1.6-8.9); Platelet Count 232 K/mcL (140-400); Red Blood Count 2.89 M/mcL (3.82-4.97); Red Cell Distribution Width 14.8 % (11.5-14.5); Segmented Neutrophils % 93.5 %; White Blood Count 9.4 K/mcL (4.3-11.1)
[2019-10-02] MEDS: Acetaminophen 325 MG TABLET PO PRN (00:52)
[2019-10-02] MEDS: MethylPREDNISolone 40 MG/ML VIAL IVP SCH ×2 (00:52→07:59)
[2019-10-02 00:55] LABS: VBG HCO3 28 mEq/L (21-27); VBG PCO2 32 mmHg (41-51); VBG PH 7.55 pH Units (7.32-7.42); VBG PO2 151 mmHg (25-50)
[2019-10-02 01:02] LABS: Calcium 9.2 mg/dL (8.6-10.3); Potassium 5.4 mEq/L (3.5-5.1)
[2019-10-02] MEDS: *HR* Heparin 5,000 UNIT/ML VIAL SQ SCH ×3 (05:43→19:53)
[2019-10-02] MEDS: *HR* OxyCODONE/APAP 5/325 TABLET PO PRN ×2 (05:52→19:54)
[2019-10-02] MEDS: Budesonide/Formoterol 160/4.5 1 PUFF INH IH SCH ×2 (07:27→20:25)
[2019-10-02] MEDS: Insulin LISPRO 300 UNITS/3 ML VIAL SQ SCH ×4 (07:46→21:40)
[2019-10-02] MEDS: Sucralfate 1 GM TABLET PO SCH ×4 (07:46→19:53)
[2019-10-02] MEDS: Cholecalciferol (D-3) 1,000 UNIT (25MCG) TABLET PO SCH (07:59)
[2019-10-02] MEDS: Aspirin Enteric Coated 81 MG Tablet PO SCH (08:00)
[2019-10-02] MEDS: amLODIPine 5 MG TABLET PO SCH (08:00)
[2019-10-02] MEDS: Folic Acid 1 MG TABLET PO SCH (08:01)
[2019-10-02] MEDS: Metoprolol XL (24 HR) Succ 50 MG TAB.ER.24H PO SCH (08:01)
[2019-10-02] MEDS: Nicotine 7 MG PATCH.TD24 TD SCH (08:01)
[2019-10-02] MEDS: Insulin DETEMIR 100 UNIT/ML X5UNITS SQ SCH (09:40)
[2019-10-02] MEDS: Furosemide 40 MG/4 ML VIAL IVP SCH (09:40)
[2019-10-02] MEDS ORDERED: Aminoglycoside Consult 1 EACH MC ONE (09:42)
[2019-10-02] MEDS: Gabapentin 100 MG CAPSULE PO SCH ×2 (09:51→19:53)
[2019-10-02] MEDS ORDERED: Ergocalciferol (VIT D2) 50,000 UNIT (1.25MG) CAP PO SCH (11:55)
[2019-10-02] MEDS: Doxycycline 100 MG in 0.9 % Sodium Chloride Mini Bag 100 ML IVPB SCH (17:32)
[2019-10-03 02:57] LABS: Calcium 8.5 mg/dL (8.6-10.3); Potassium 4.9 mEq/L (3.5-5.1)
[2019-10-03] MEDS: Doxycycline 100 MG in 0.9 % Sodium Chloride Mini Bag 100 ML IVPB SCH ×2 (05:13→17:07)
[2019-10-03] MEDS: *HR* Heparin 5,000 UNIT/ML VIAL SQ SCH ×3 (05:18→20:58)
[2019-10-03] MEDS ORDERED: 0.9 % Sodium Chloride 1,000 ML IVC SCH (07:15)
[2019-10-03] MEDS: Budesonide/Formoterol 160/4.5 1 PUFF INH IH SCH ×2 (07:45→19:46)
[2019-10-03] MEDS: Aspirin Enteric Coated 81 MG Tablet PO SCH (08:05)
[2019-10-03] MEDS: amLODIPine 5 MG TABLET PO SCH (08:05)
[2019-10-03] MEDS: Sucralfate 1 GM TABLET PO SCH ×4 (08:06→20:58)
[2019-10-03] MEDS: Metoprolol XL (24 HR) Succ 50 MG TAB.ER.24H PO SCH (08:06)
[2019-10-03] MEDS: Folic Acid 1 MG TABLET PO SCH (08:07)
[2019-10-03] MEDS: Nicotine 7 MG PATCH.TD24 TD SCH (08:07)
[2019-10-03] MEDS: predniSONE 20 MG TABLET PO SCH (08:07)
[2019-10-03] MEDS: Gabapentin 100 MG CAPSULE PO SCH ×2 (08:07→20:58)
[2019-10-03] MEDS: Insulin LISPRO 300 UNITS/3 ML VIAL SQ SCH ×4 (08:08→20:58)
[2019-10-03] MEDS: *HR* OxyCODONE/APAP 5/325 TABLET PO PRN ×2 (08:17→16:13)
[2019-10-03] MEDS: Cholecalciferol (D-3) 1,000 UNIT (25MCG) TABLET PO SCH (08:23)
[2019-10-03] MEDS: Insulin DETEMIR 100 UNIT/ML X5UNITS SQ SCH (08:24)
[2019-10-03] MEDS ORDERED: levoFLOXacin 750 MG TABLET PO SCH (09:00)
[2019-10-04 04:53] LABS: Calcium 8.2 mg/dL (8.6-10.3); Potassium 5.3 mEq/L (3.5-5.1)
[2019-10-04] MEDS: Doxycycline 100 MG in 0.9 % Sodium Chloride Mini Bag 100 ML IVPB SCH (05:40)
[2019-10-04] MEDS: *HR* Heparin 5,000 UNIT/ML VIAL SQ SCH ×2 (05:40→16:53)
[2019-10-04] MEDS: Budesonide/Formoterol 160/4.5 1 PUFF INH IH SCH (07:27)
[2019-10-04] MEDS: Gabapentin 100 MG CAPSULE PO SCH (08:40)
[2019-10-04] MEDS: *HR* OxyCODONE/APAP 5/325 TABLET PO PRN ×2 (08:40→16:52)
[2019-10-04] MEDS: Cholecalciferol (D-3) 1,000 UNIT (25MCG) TABLET PO SCH (08:40)
[2019-10-04] MEDS: Aspirin Enteric Coated 81 MG Tablet PO SCH (08:40)
[2019-10-04] MEDS: predniSONE 20 MG TABLET PO SCH (08:40)
[2019-10-04] MEDS: Nicotine 7 MG PATCH.TD24 TD SCH (08:40)
[2019-10-04] MEDS: amLODIPine 5 MG TABLET PO SCH (08:41)
[2019-10-04] MEDS: Insulin LISPRO 300 UNITS/3 ML VIAL SQ SCH ×3 (08:41→16:52)
[2019-10-04] MEDS: Sucralfate 1 GM TABLET PO SCH ×3 (08:41→16:52)
[2019-10-04] MEDS: Metoprolol XL (24 HR) Succ 50 MG TAB.ER.24H PO SCH (08:41)
[2019-10-04] MEDS: Folic Acid 1 MG TABLET PO SCH (08:41)
[2019-10-04] MEDS: Insulin DETEMIR 100 UNIT/ML X5UNITS SQ SCH (09:00)
[2019-10-04 14:58] VITALS: BP 133/52
[2019-10-04] MEDS ORDERED: Doxycycline 100 MG CAPSULE PO SCH (21:00)
== END 2019-10-04 17:56 | disposition home or self-care (01) | DRG 194 ==
LOC: EMEROOARM 19:46 → 2NNU 19:46 → OBSVTOIN 23:37 → SUATTDRO 23:37 → 2NNU 09-30 00:08 → 2ANU 10-01 05:26
PROVIDERS: ADMIT Internal Medicine; ATTEND Internal Medicine

== ENCOUNTER 2019-10-18 01:17 | Observation (INO) ==
[2019-10-18] MEDS ORDERED: Ipratropium/Albuterol Neb 3 ML IH STA (01:29)
[2019-10-18] MEDS ORDERED: Albuterol 2.5 MG/3 ML NEBULIZER IH STA (01:29)
[2019-10-18 02:36] LABS: Basophils % 0.1 %; Eosinophils % 0.4 %; Hematocrit 31.2 % (35.3-44.9); Hemoglobin 9.4 g/dL (11.5-15.4); Immature Granulocytes % 0.7 % (0-4); Lymphocytes % 14.2 %; Mean Corpuscular HGB Conc 30.1 g/dL (31.6-35.5); Mean Corpuscular Hemoglobin 29.4 pg (28.0-33.3); Mean Corpuscular Volume 97.5 fL (83.0-100.0); Mean Platelet Volume 10.4 fL (9.4-12.4); Monocytes # 0.6 K/mcL (0.0-1.3); Monocytes % 8.2 %; Neutrophils # 5.2 K/mcL (1.6-8.9); Platelet Count 171 K/mcL (140-400); Red Cell Distribution Width 14.6 % (11.5-14.5); Segmented Neutrophils % 76.4 %; White Blood Count 6.8 K/mcL (4.3-11.1)
[2019-10-18 03:08] LABS: BUN/Creatinine Ratio 27 (6-26); Blood Urea Nitrogen 20 mg/dL (8-23); Calcium 9.4 mg/dL (8.6-10.3); Carbon Dioxide 40 mEq/L (23-29); Chloride 102 mEq/L (98-107); Glucose 144 mg/dL (70-105); Osmolality,Calculated 305 (280-300); Potassium 4.3 mEq/L (3.5-5.1); Sodium 145 mEq/L (136-145); eGFR For African Americans > 60 (> 60); eGFR For Non-African Americans > 60 (> 60)
[2019-10-18] MEDS ORDERED: Piperacillin/Tazobactam 3.375 GM in 0.9 % Sodium Chloride Mini Bag 100 ML IVPB STA (03:14)
[2019-10-18] MEDS ORDERED: Aminoglycoside Consult 1 EACH MC ONE (04:02)
[2019-10-18 04:59] LABS: VBG HCO3 35 mEq/L (21-27); VBG PCO2 40 mmHg (41-51); VBG PH 7.55 pH Units (7.32-7.42); VBG PO2 147 mmHg (25-50)
[2019-10-18] MEDS ORDERED: Naloxone 0.4 MG/ML INJ IVP PRN (06:35)
[2019-10-18] MEDS ORDERED: Albuterol 2.5 MG/3 ML NEBULIZER IH PRN (06:48)
[2019-10-18] MEDS ORDERED: D5% in Water 1,000 ML IVC PRN (06:52)
[2019-10-18] MEDS ORDERED: Dextrose Gel 15 GM/37.5 ML TUBE PO PRN ×2 (06:52)
[2019-10-18] MEDS ORDERED: *HR* Dextrose 50 % in Water (Syg) 50 ML SYRINGE IVP PRN (06:52)
[2019-10-18] MEDS: Furosemide 40 MG TABLET PO SCH (10:23)
[2019-10-18] MEDS: (Roflumilast [Daliresp] 500 MCG) PO SCH (10:23)
[2019-10-18] MEDS: Aspirin Enteric Coated 81 MG Tablet PO SCH (10:23)
[2019-10-18] MEDS: Metoprolol XL (24 HR) Succ 50 MG TAB.ER.24H PO SCH (10:23)
[2019-10-18] MEDS: amLODIPine 5 MG TABLET PO SCH (10:23)
[2019-10-18] MEDS ORDERED: Piperacillin/Tazobactam 3.375 GM in 0.9 % Sodium Chloride Mini Bag 100 ML IVPB SCH (11:00)
[2019-10-18] MEDS: Budesonide/Formoterol 160/4.5 1 PUFF INH IH SCH ×2 (11:35→21:51)
[2019-10-18] MEDS: Ipratropium/Albuterol Neb 3 ML IH SCH ×3 (11:35→21:51)
[2019-10-18] MEDS ORDERED: MethylPREDNISolone 40 MG/ML VIAL IVP SCH (12:00)
[2019-10-18] MEDS: predniSONE 20 MG TABLET PO SCH (12:08)
[2019-10-18] MEDS: Acetaminophen 325 MG TABLET PO PRN ×2 (12:18→21:36)
[2019-10-18] MEDS: Insulin LISPRO 300 UNITS/3 ML VIAL SQ SCH ×3 (12:22→21:35)
[2019-10-18] MEDS: *HR* Heparin 5,000 UNIT/ML VIAL SQ SCH (17:01)
[2019-10-19] MEDS: Gabapentin 100 MG CAPSULE PO SCH ×3 (01:57→21:22)
[2019-10-19] MEDS: Ipratropium/Albuterol Neb 3 ML IH SCH ×4 (03:36→22:15)
[2019-10-19] MEDS: *HR* Heparin 5,000 UNIT/ML VIAL SQ SCH ×2 (06:41→17:18)
[2019-10-19] MEDS: Budesonide/Formoterol 160/4.5 1 PUFF INH IH SCH ×2 (09:29→22:15)
[2019-10-19] MEDS: Insulin LISPRO 300 UNITS/3 ML VIAL SQ SCH ×4 (11:06→21:22)
[2019-10-19] MEDS: Furosemide 40 MG TABLET PO SCH (11:10)
[2019-10-19] MEDS: Aspirin Enteric Coated 81 MG Tablet PO SCH (11:10)
[2019-10-19] MEDS: predniSONE 20 MG TABLET PO SCH (11:10)
[2019-10-19] MEDS: amLODIPine 5 MG TABLET PO SCH (11:11)
[2019-10-19] MEDS: Metoprolol XL (24 HR) Succ 50 MG TAB.ER.24H PO SCH (11:11)
[2019-10-19] MEDS: (Roflumilast [Daliresp] 500 MCG) PO SCH (11:11)
[2019-10-19 11:40] LABS: BUN/Creatinine Ratio 19 (6-26); Blood Urea Nitrogen 20 mg/dL (8-23); Calcium 9.1 mg/dL (8.6-10.3); Carbon Dioxide 41 mEq/L (23-29); Chloride 98 mEq/L (98-107); Glucose 172 mg/dL (70-105); Osmolality,Calculated 303 (280-300); Potassium 3.4 mEq/L (3.5-5.1); Sodium 143 mEq/L (136-145); eGFR For African Americans > 60 (> 60); eGFR For Non-African Americans 51 (> 60)
[2019-10-19] MEDS: Nicotine 21 MG PATCH.TD24 TD SCH (11:49)
[2019-10-19] MEDS: Insulin DETEMIR 100 UNIT/ML X5UNITS SQ SCH (11:50)
[2019-10-19 12:13] LABS: Basophils % 0.1 %; Eosinophils # 0.2 K/mcL (0.0-0.6); Eosinophils % 2.2 %; Hematocrit 28.9 % (35.3-44.9); Hemoglobin 9.1 g/dL (11.5-15.4); Immature Granulocytes % 0.4 % (0-4); Lymphocytes # 1.2 K/mcL (0.6-4.6); Lymphocytes % 16.4 %; Mean Corpuscular HGB Conc 31.5 g/dL (31.6-35.5); Mean Corpuscular Hemoglobin 29.6 pg (28.0-33.3); Mean Corpuscular Volume 94.1 fL (83.0-100.0); Mean Platelet Volume 11.5 fL (9.4-12.4); Monocytes # 0.7 K/mcL (0.0-1.3); Monocytes % 9.4 %; Neutrophils # 5.2 K/mcL (1.6-8.9); Platelet Count 170 K/mcL (140-400); Red Blood Count 3.07 M/mcL (3.82-4.97); Red Cell Distribution Width 14.8 % (11.5-14.5); Segmented Neutrophils % 71.5 %; White Blood Count 7.3 K/mcL (4.3-11.1)
[2019-10-19] MEDS: Nystatin POWDER 30 GM BOTTLE TP SCH (21:22)
[2019-10-20] MEDS: Ipratropium/Albuterol Neb 3 ML IH SCH ×3 (03:54→16:05)
[2019-10-20] MEDS: *HR* Heparin 5,000 UNIT/ML VIAL SQ SCH (06:30)
[2019-10-20] MEDS: Insulin LISPRO 300 UNITS/3 ML VIAL SQ SCH ×2 (09:11→12:11)
[2019-10-20] MEDS: Nicotine 21 MG PATCH.TD24 TD SCH (09:13)
[2019-10-20] MEDS: predniSONE 20 MG TABLET PO SCH (09:16)
[2019-10-20] MEDS: Aspirin Enteric Coated 81 MG Tablet PO SCH (09:16)
[2019-10-20] MEDS: amLODIPine 5 MG TABLET PO SCH (09:24)
[2019-10-20] MEDS: Insulin DETEMIR 100 UNIT/ML X5UNITS SQ SCH (09:24)
[2019-10-20] MEDS: Gabapentin 100 MG CAPSULE PO SCH (09:24)
[2019-10-20] MEDS: Furosemide 40 MG TABLET PO SCH (09:24)
[2019-10-20] MEDS: Metoprolol XL (24 HR) Succ 50 MG TAB.ER.24H PO SCH (09:24)
[2019-10-20] MEDS: Nystatin POWDER 30 GM BOTTLE TP SCH (09:32)
[2019-10-20] MEDS: (Roflumilast [Daliresp] 500 MCG) PO SCH (09:33)
[2019-10-20] MEDS: Budesonide/Formoterol 160/4.5 1 PUFF INH IH SCH (10:04)
[2019-10-20 15:21] VITALS: BP 167/66
== END 2019-10-20 17:30 | disposition home or self-care (01) ==
LOC: EMEROOARM 01:17 → 2ANU 01:17 → SUATTDRO 04:01 → 2ANU 05:00
PROVIDERS: ADMIT Internal Medicine; ATTEND Internal Medicine

== ENCOUNTER 2019-11-01 17:20 | Inpatient (IN) ==
[2019-11-01] MEDS ORDERED: Furosemide 40 MG/4 ML VIAL IVP ONE (18:09)
[2019-11-01] MEDS ORDERED: Nitroglycerin 1 INCH/GM PACKET TP ONE (18:09)
[2019-11-01 19:16] LABS: Troponin I 0.03 ng/mL (< 0.04)
[2019-11-01 19:25] LABS: BUN/Creatinine Ratio 23 (6-26); Blood Urea Nitrogen 23 mg/dL (8-23); Carbon Dioxide 38 mEq/L (23-29); Chloride 102 mEq/L (98-107); Glucose 168 mg/dL (70-105); Osmolality,Calculated 308 (280-300); Potassium 4.2 mEq/L (3.5-5.1); Sodium 145 mEq/L (136-145); eGFR For African Americans > 60 (> 60); eGFR For Non-African Americans 53 (> 60)
[2019-11-01 20:17] LABS: Basophils % 0.2 %; Eosinophils # 0.2 K/mcL (0.0-0.6); Eosinophils % 1.6 %; Hematocrit 32.8 % (35.3-44.9); Hemoglobin 9.7 g/dL (11.5-15.4); Immature Granulocytes % 0.3 % (0-4); Lymphocytes % 11.1 %; Mean Corpuscular HGB Conc 29.6 g/dL (31.6-35.5); Mean Corpuscular Hemoglobin 29.9 pg (28.0-33.3); Mean Corpuscular Volume 101.2 fL (83.0-100.0); Mean Platelet Volume 10.1 fL (9.4-12.4); Monocytes # 0.6 K/mcL (0.0-1.3); Monocytes % 6.3 %; Neutrophils # 7.5 K/mcL (1.6-8.9); Platelet Count 174 K/mcL (140-400); Red Blood Count 3.24 M/mcL (3.82-4.97); Red Cell Distribution Width 13.8 % (11.5-14.5); Segmented Neutrophils % 80.5 %; White Blood Count 9.3 K/mcL (4.3-11.1)
[2019-11-01] MEDS ORDERED: Naloxone 0.4 MG/ML INJ IVP PRN (22:32)
[2019-11-01] MEDS ORDERED: Albuterol 2.5 MG/3 ML NEBULIZER IH PRN (22:34)
[2019-11-01] MEDS ORDERED: D5% in Water 1,000 ML IVC PRN (22:36)
[2019-11-01] MEDS ORDERED: *HR* Dextrose 50 % in Water (Syg) 50 ML SYRINGE IVP PRN (22:36)
[2019-11-01] MEDS ORDERED: Dextrose Gel 15 GM/37.5 ML TUBE PO PRN ×2 (22:36)
[2019-11-01] MEDS: Ipratropium/Albuterol Neb 3 ML IH SCH (22:49)
[2019-11-01] MEDS: Nicotine 21 MG PATCH.TD24 TD SCH (23:13)
[2019-11-02] MEDS ORDERED: Azithromycin 500 MG in D5% in Water 250 ML IVPB SCH (01:00)
[2019-11-02] MEDS ORDERED: Acetaminophen 325 MG TABLET PO PRN (02:43)
[2019-11-02] MEDS: *HR* HYDROcodone/Acet 5/325 mg TABLET PO PRN (03:00)
[2019-11-02] MEDS: Ipratropium/Albuterol Neb 3 ML IH SCH ×4 (03:34→22:02)
[2019-11-02] MEDS: *HR* Heparin 5,000 UNIT/ML VIAL SQ SCH ×2 (05:01→17:30)
[2019-11-02] MEDS: Furosemide 40 MG/4 ML VIAL IVP SCH ×2 (07:56→21:13)
[2019-11-02] MEDS: Nicotine 21 MG PATCH.TD24 TD SCH (07:56)
[2019-11-02] MEDS: Insulin LISPRO 300 UNITS/3 ML VIAL SQ SCH ×4 (07:57→21:11)
[2019-11-02] MEDS ORDERED: predniSONE 20 MG TABLET PO SCH (09:00)
[2019-11-02] MEDS ORDERED: polyethylene glycoL 3350 17 GM POWD.PACK PO PRN (09:33)
[2019-11-02] MEDS: Budesonide/Formoterol 160/4.5 1 PUFF INH IH SCH ×2 (10:31→22:02)
[2019-11-02 10:44] LABS: ABG Base Excess 17 mEq/L (-2 to 3); ABG HCO3 49 mEq/L (21-27); ABG Oxygen Saturation 85 % (95-98); ABG PCO2 117 mmHg (35-45); ABG PH 7.23 pH Units (7.32-7.45); ABG PO2 64 mmHg (85-104); ABG TCO2 > 50 mEq/L (20-26)
[2019-11-02] MEDS: *HR* OxyCODONE Immed Rel 5 MG TABLET PO PRN (11:49)
[2019-11-02] MEDS: Sucralfate 1 GM TABLET PO SCH ×3 (11:49→21:13)
[2019-11-02] MEDS: Doxycycline 100 MG in 0.9 % Sodium Chloride Mini Bag 100 ML IVPB SCH ×2 (11:50→17:31)
[2019-11-02] MEDS: MethylPREDNISolone 40 MG/ML VIAL IVP SCH ×2 (17:30→23:18)
[2019-11-02] MEDS ORDERED: Insulin DETEMIR 100 UNIT/ML X5UNITS SQ SCH (21:00)
[2019-11-03 00:11] LABS: ABG Base Excess 16 mEq/L (-2 to 3); ABG HCO3 45 mEq/L (21-27); ABG Oxygen Saturation 99 % (95-98); ABG PCO2 91 mmHg (35-45); ABG PO2 146 mmHg (85-104); ABG TCO2 48 mEq/L (20-26); Blood Gas Modality BiLevel; Blood Gas VT 500 cc
[2019-11-03 03:00] LABS: Basophils % 0.2 %; Hematocrit 33.2 % (35.3-44.9); Hemoglobin 9.7 g/dL (11.5-15.4); Immature Granulocytes % 0.9 % (0-4); Lymphocytes # 0.2 K/mcL (0.6-4.6); Lymphocytes % 3.4 %; Mean Corpuscular HGB Conc 29.2 g/dL (31.6-35.5); Mean Corpuscular Hemoglobin 28.8 pg (28.0-33.3); Mean Corpuscular Volume 98.5 fL (83.0-100.0); Monocytes % 0.5 %; Neutrophils # 5.3 K/mcL (1.6-8.9); Platelet Count 174 K/mcL (140-400); Red Blood Count 3.37 M/mcL (3.82-4.97); Red Cell Distribution Width 13.5 % (11.5-14.5); White Blood Count 5.6 K/mcL (4.3-11.1)
[2019-11-03 03:22] LABS: Magnesium 1.8 mg/dL (1.6-2.6); Phosphorous 4.3 mg/dL (2.7-4.5); Potassium 4.2 mEq/L (3.5-5.1)
[2019-11-03 03:30] LABS: Platelet Estimate Normal (Normal)
[2019-11-03] MEDS: Ipratropium/Albuterol Neb 3 ML IH SCH ×4 (04:08→22:16)
[2019-11-03 04:24] LABS: ABG Base Excess 16 mEq/L (-2 to 3); ABG HCO3 44 mEq/L (21-27); ABG Oxygen Saturation 94 % (95-98); ABG PCO2 75 mmHg (35-45); ABG PH 7.37 pH Units (7.32-7.45); ABG PO2 76 mmHg (85-104); ABG TCO2 46 mEq/L (20-26); Blood Gas VT 500 cc
[2019-11-03] MEDS: Doxycycline 100 MG in 0.9 % Sodium Chloride Mini Bag 100 ML IVPB SCH ×2 (05:29→16:54)
[2019-11-03] MEDS: *HR* Heparin 5,000 UNIT/ML VIAL SQ SCH ×2 (05:29→16:54)
[2019-11-03] MEDS: Metoprolol XL (24 HR) Succ 50 MG TAB.ER.24H PO SCH (08:09)
[2019-11-03] MEDS: Aspirin Enteric Coated 81 MG Tablet PO SCH (08:09)
[2019-11-03] MEDS: Folic Acid 1 MG TABLET PO SCH (08:09)
[2019-11-03] MEDS: Sucralfate 1 GM TABLET PO SCH ×4 (08:09→19:54)
[2019-11-03] MEDS: Insulin LISPRO 300 UNITS/3 ML VIAL SQ SCH ×4 (08:10→19:52)
[2019-11-03] MEDS: Furosemide 40 MG/4 ML VIAL IVP SCH ×2 (08:10→19:54)
[2019-11-03] MEDS: MethylPREDNISolone 40 MG/ML VIAL IVP SCH ×3 (08:10→23:36)
[2019-11-03] MEDS: Nicotine 21 MG PATCH.TD24 TD SCH (08:10)
[2019-11-03] MEDS: Nystatin POWDER 30 GM BOTTLE TP SCH ×2 (08:26→19:55)
[2019-11-03] MEDS: Insulin DETEMIR 100 UNIT/ML X5UNITS SQ SCH ×3 (09:36→21:33)
[2019-11-03] MEDS: Budesonide/Formoterol 160/4.5 1 PUFF INH IH SCH ×2 (10:49→22:16)
[2019-11-03] MEDS: *HR* HYDROcodone/Acet 5/325 mg TABLET PO PRN (17:05)
[2019-11-03] MEDS: *HR* OxyCODONE Immed Rel 5 MG TABLET PO PRN (19:54)
[2019-11-04 04:13] LABS: Calcium 9.2 mg/dL (8.6-10.3); Magnesium 1.9 mg/dL (1.6-2.6); Phosphorous 4.3 mg/dL (2.7-4.5); Potassium 4.4 mEq/L (3.5-5.1)
[2019-11-04] MEDS: *HR* Heparin 5,000 UNIT/ML VIAL SQ SCH ×2 (04:23→17:31)
[2019-11-04] MEDS: Doxycycline 100 MG in 0.9 % Sodium Chloride Mini Bag 100 ML IVPB SCH ×2 (04:23→17:31)
[2019-11-04] MEDS: Ipratropium/Albuterol Neb 3 ML IH SCH ×4 (04:41→22:03)
[2019-11-04 04:42] LABS: ABG Base Excess 17 mEq/L (-2 to 3); ABG HCO3 45 mEq/L (21-27); ABG Oxygen Saturation 97 % (95-98); ABG PCO2 75 mmHg (35-45); ABG PH 7.39 pH Units (7.32-7.45); ABG PO2 94 mmHg (85-104); ABG TCO2 47 mEq/L (20-26); Blood Gas Modality NIV; Blood Gas VT 500 cc
[2019-11-04] MEDS: *HR* OxyCODONE Immed Rel 5 MG TABLET PO PRN ×2 (05:46→20:41)
[2019-11-04] MEDS ORDERED: amLODIPine 5 MG TABLET PO SCH (09:00)
[2019-11-04] MEDS: Aspirin Enteric Coated 81 MG Tablet PO SCH (09:50)
[2019-11-04] MEDS: Metoprolol XL (24 HR) Succ 50 MG TAB.ER.24H PO SCH (09:50)
[2019-11-04] MEDS: Sucralfate 1 GM TABLET PO SCH ×4 (09:50→20:41)
[2019-11-04] MEDS: Folic Acid 1 MG TABLET PO SCH (09:50)
[2019-11-04] MEDS: Furosemide 40 MG/4 ML VIAL IVP SCH ×2 (09:51→20:42)
[2019-11-04] MEDS: Insulin LISPRO 300 UNITS/3 ML VIAL SQ SCH ×4 (09:51→20:42)
[2019-11-04] MEDS: Nystatin POWDER 30 GM BOTTLE TP SCH ×2 (09:51→20:42)
[2019-11-04] MEDS: Nicotine 21 MG PATCH.TD24 TD SCH (09:51)
[2019-11-04] MEDS: Insulin DETEMIR 100 UNIT/ML X5UNITS SQ SCH ×2 (09:54→20:41)
[2019-11-04] MEDS: Budesonide/Formoterol 160/4.5 1 PUFF INH IH SCH ×2 (10:06→22:03)
[2019-11-04] MEDS: *HR* HYDROcodone/Acet 5/325 mg TABLET PO PRN (10:56)
[2019-11-04] MEDS: MethylPREDNISolone 40 MG/ML VIAL IVP SCH (17:31)
[2019-11-04] MEDS: hydrALAZINE 25 MG TABLET PO SCH (17:31)
[2019-11-05] MEDS: hydrALAZINE 25 MG TABLET PO SCH ×3 (00:23→15:53)
[2019-11-05] MEDS: Ipratropium/Albuterol Neb 3 ML IH SCH ×4 (03:25→22:06)
[2019-11-05 03:37] LABS: Platelet Count 180 K/mcL (140-400)
[2019-11-05 03:39] LABS: Hematocrit 31.5 % (35.3-44.9); Hemoglobin 9.7 g/dL (11.5-15.4); Immature Granulocytes % 0.4 % (0-4); Immature Platelets 2.8 % (1.1-6.1); Lymphocytes # 0.5 K/mcL (0.6-4.6); Mean Corpuscular HGB Conc 30.8 g/dL (31.6-35.5); Mean Corpuscular Volume 94.3 fL (83.0-100.0); Mean Platelet Volume 10.4 fL (9.4-12.4); Monocytes # 0.3 K/mcL (0.0-1.3); Monocytes % 3.7 %; Neutrophils # 6.3 K/mcL (1.6-8.9); Red Blood Count 3.34 M/mcL (3.82-4.97); Red Cell Distribution Width 13.7 % (11.5-14.5); Segmented Neutrophils % 88.9 %; White Blood Count 7.1 K/mcL (4.3-11.1)
[2019-11-05 04:03] LABS: Platelet Estimate Normal (Normal)
[2019-11-05 04:12] LABS: BUN/Creatinine Ratio 37 (6-26); Blood Urea Nitrogen 54 mg/dL (8-23); Calcium 8.7 mg/dL (8.6-10.3); Carbon Dioxide > 45 mEq/L (23-29); Chloride 90 mEq/L (98-107); Glucose 174 mg/dL (70-105); Magnesium 1.8 mg/dL (1.6-2.6); Osmolality,Calculated 307 (280-300); Phosphorous 3.7 mg/dL (2.7-4.5); Potassium 4.1 mEq/L (3.5-5.1); Sodium 139 mEq/L (136-145); eGFR For African Americans 43 (> 60); eGFR For Non-African Americans 35 (> 60)
[2019-11-05] MEDS: Doxycycline 100 MG in 0.9 % Sodium Chloride Mini Bag 100 ML IVPB SCH (05:37)
[2019-11-05] MEDS: MethylPREDNISolone 40 MG/ML VIAL IVP SCH ×2 (05:37→21:04)
[2019-11-05] MEDS: *HR* Heparin 5,000 UNIT/ML VIAL SQ SCH ×2 (05:38→18:43)
[2019-11-05] MEDS: *HR* OxyCODONE Immed Rel 5 MG TABLET PO PRN ×2 (05:42→11:42)
[2019-11-05] MEDS: Metoprolol XL (24 HR) Succ 50 MG TAB.ER.24H PO SCH (07:58)
[2019-11-05] MEDS: Sucralfate 1 GM TABLET PO SCH ×4 (07:58→21:04)
[2019-11-05] MEDS: amLODIPine 5 MG TABLET PO SCH (07:59)
[2019-11-05] MEDS: Folic Acid 1 MG TABLET PO SCH (07:59)
[2019-11-05] MEDS: Nicotine 21 MG PATCH.TD24 TD SCH (07:59)
[2019-11-05] MEDS: Aspirin Enteric Coated 81 MG Tablet PO SCH (07:59)
[2019-11-05] MEDS: Furosemide 40 MG/4 ML VIAL IVP SCH ×2 (08:00→21:04)
[2019-11-05] MEDS: Nystatin POWDER 30 GM BOTTLE TP SCH ×2 (08:01→21:09)
[2019-11-05] MEDS: Insulin LISPRO 300 UNITS/3 ML VIAL SQ SCH ×4 (08:01→21:05)
[2019-11-05] MEDS: Insulin DETEMIR 100 UNIT/ML X5UNITS SQ SCH ×2 (08:21→21:05)
[2019-11-05] MEDS: Budesonide/Formoterol 160/4.5 1 PUFF INH IH SCH ×2 (10:52→22:06)
[2019-11-05 12:00] LABS: ABG Base Excess 20 mEq/L (-2 to 3); ABG HCO3 49 mEq/L (21-27); ABG Oxygen Saturation 89 % (95-98); ABG PCO2 76 mmHg (35-45); ABG PH 7.42 pH Units (7.32-7.45); ABG PO2 61 mmHg (85-104); ABG TCO2 > 50 mEq/L (20-26)
[2019-11-05] MEDS ORDERED: Apixaban 5 MG TABLET PO SCH (21:00)
[2019-11-05] MEDS: Doxycycline 100 MG CAPSULE PO SCH (21:04)
[2019-11-05] MEDS: *HR* HYDROcodone/Acet 5/325 mg TABLET PO PRN (21:26)
[2019-11-06] MEDS: hydrALAZINE 25 MG TABLET PO SCH (00:29)
[2019-11-06] MEDS: *HR* OxyCODONE Immed Rel 5 MG TABLET PO PRN ×2 (03:51→15:23)
[2019-11-06] MEDS: Ipratropium/Albuterol Neb 3 ML IH SCH ×3 (03:59→15:18)
[2019-11-06 05:11] LABS: BUN/Creatinine Ratio 46 (6-26); Blood Urea Nitrogen 61 mg/dL (8-23); Calcium 8.5 mg/dL (8.6-10.3); Chloride 90 mEq/L (98-107); Glucose 181 mg/dL (70-105); Magnesium 1.8 mg/dL (1.6-2.6); Osmolality,Calculated 310 (280-300); Phosphorous 3.1 mg/dL (2.7-4.5); Potassium 3.7 mEq/L (3.5-5.1); Sodium 139 mEq/L (136-145); eGFR For African Americans 47 (> 60); eGFR For Non-African Americans 39 (> 60)
[2019-11-06 05:13] LABS: Carbon Dioxide > 45 mEq/L (23-29)
[2019-11-06] MEDS: *HR* Heparin 5,000 UNIT/ML VIAL SQ SCH (05:49)
[2019-11-06] MEDS: MethylPREDNISolone 40 MG/ML VIAL IVP SCH (05:50)
[2019-11-06 07:44] VITALS: BP 146/95
[2019-11-06] MEDS ORDERED: hydrALAZINE 25 MG TABLET PO SCH (08:00)
[2019-11-06] MEDS: Nicotine 21 MG PATCH.TD24 TD SCH (08:59)
[2019-11-06] MEDS: Folic Acid 1 MG TABLET PO SCH (08:59)
[2019-11-06] MEDS: Metoprolol XL (24 HR) Succ 50 MG TAB.ER.24H PO SCH (08:59)
[2019-11-06] MEDS: Sucralfate 1 GM TABLET PO SCH ×2 (08:59→11:59)
[2019-11-06] MEDS: Furosemide 40 MG/4 ML VIAL IVP SCH (09:00)
[2019-11-06] MEDS: Insulin DETEMIR 100 UNIT/ML X5UNITS SQ SCH (09:00)
[2019-11-06] MEDS: Doxycycline 100 MG CAPSULE PO SCH (09:00)
[2019-11-06] MEDS: Aspirin Enteric Coated 81 MG Tablet PO SCH (09:00)
[2019-11-06] MEDS: amLODIPine 5 MG TABLET PO SCH (09:00)
[2019-11-06] MEDS: Insulin LISPRO 300 UNITS/3 ML VIAL SQ SCH ×2 (09:01→12:00)
[2019-11-06] MEDS: Nystatin POWDER 30 GM BOTTLE TP SCH (09:06)
[2019-11-06] MEDS: Budesonide/Formoterol 160/4.5 1 PUFF INH IH SCH (10:30)
== END 2019-11-06 16:23 | disposition home or self-care (01) ==
LOC: EMEROOARM 17:20 → 2NENU 17:20 → SUATTDRO 20:22 → 2NENU 21:25
PROVIDERS: ADMIT Family Medicine; ATTEND Internal Medicine

== ENCOUNTER 2019-11-15 03:19 | Observation (INO) ==
[2019-11-15 04:27] LABS: Bilirubin,Urine Negative (Negative); Blood,Urine Negative (Negative); Clarity,Urine Clear (Clear); Color,Urine Yellow (Yellow); Glucose,Urine (UA) Normal (Normal); Ketones,Urine Negative (Negative); Leukocyte Esterase,Urine Negative (Negative); Nitrite,Urine Negative (Negative); PH,Urine 5.5 pH Units (5.0-8.0); Protein,Urine Trace mg/dL (Neg-Trace); Specific Gravity,Urine 1.021 (1.010-1.025); Urobilinogen,Urine Normal (Normal)
[2019-11-15] MEDS ORDERED: Albuterol 2.5 MG/3 ML NEBULIZER IH ONE (04:38)
[2019-11-15 04:55] LABS: Basophils % 0.1 %; Hemoglobin 10.8 g/dL (11.5-15.4)
[2019-11-15 04:57] LABS: Eosinophils # 0.2 K/mcL (0.0-0.6); Hematocrit 36.4 % (35.3-44.9); Lymphocytes % 14.4 %; Mean Corpuscular HGB Conc 29.7 g/dL (31.6-35.5); Mean Corpuscular Hemoglobin 29.6 pg (28.0-33.3); Mean Corpuscular Volume 99.7 fL (83.0-100.0); Mean Platelet Volume 10.7 fL (9.4-12.4); Monocytes # 0.5 K/mcL (0.0-1.3); Monocytes % 6.6 %; Neutrophils # 5.2 K/mcL (1.6-8.9); Platelet Count 194 K/mcL (140-400); Red Blood Count 3.65 M/mcL (3.82-4.97); Red Cell Distribution Width 13.2 % (11.5-14.5); Segmented Neutrophils % 74.9 %; White Blood Count 6.9 K/mcL (4.3-11.1)
[2019-11-15 05:18] LABS: BUN/Creatinine Ratio 22 (6-26); Blood Urea Nitrogen 21 mg/dL (8-23); Calcium 9.6 mg/dL (8.6-10.3); Carbon Dioxide 44 mEq/L (23-29); Chloride 98 mEq/L (98-107); Glucose 199 mg/dL (70-105); Osmolality,Calculated 307 (280-300); Potassium 4.5 mEq/L (3.5-5.1); Sodium 144 mEq/L (136-145); Troponin I < 0.03 ng/mL (< 0.04); eGFR For African Americans > 60 (> 60); eGFR For Non-African Americans 59 (> 60)
[2019-11-15 05:26] LABS: Hypochromasia Present (Not Present); Platelet Estimate Normal (Normal)
[2019-11-15] MEDS ORDERED: predniSONE 20 MG TABLET PO ONE (05:47)
[2019-11-15] MEDS ORDERED: Naloxone 0.4 MG/ML INJ IVP PRN (07:24)
[2019-11-15] MEDS ORDERED: Ondansetron 4 MG/2 ML VIAL IVP PRN (07:24)
[2019-11-15] MEDS ORDERED: Ipratropium/Albuterol Neb 3 ML IH PRN (07:26)
[2019-11-15] MEDS ORDERED: *HR* Dextrose 50 % in Water (Syg) 50 ML SYRINGE IVP PRN (07:29)
[2019-11-15] MEDS ORDERED: Dextrose Gel 15 GM/37.5 ML TUBE PO PRN ×2 (07:29)
[2019-11-15] MEDS ORDERED: D5% in Water 1,000 ML IVC PRN (07:29)
[2019-11-15] MEDS ORDERED: Nicotine 7 MG PATCH.TD24 TD SCH (09:00)
[2019-11-15] MEDS: predniSONE 20 MG TABLET PO SCH (09:38)
[2019-11-15] MEDS: *HR* Heparin 5,000 UNIT/ML VIAL SQ SCH ×2 (09:38→17:05)
[2019-11-15] MEDS: Insulin LISPRO 300 UNITS/3 ML VIAL SQ SCH ×3 (09:38→17:06)
[2019-11-15] MEDS: Furosemide 20 MG TABLET PO SCH (09:39)
[2019-11-15] MEDS: amLODIPine 5 MG TABLET PO SCH (09:39)
[2019-11-15] MEDS: Azithromycin 250 MG TABLET PO SCH (09:39)
[2019-11-15] MEDS: hydrALAZINE 25 MG TABLET PO SCH ×3 (09:39→20:29)
[2019-11-15] MEDS: Nicotine 14 MG PATCH.TD24 TD SCH (09:39)
[2019-11-15] MEDS: Folic Acid 1 MG TABLET PO SCH (09:39)
[2019-11-15] MEDS: Ipratropium/Albuterol Neb 3 ML IH SCH ×3 (10:55→22:31)
[2019-11-15 10:56] LABS: Adenovirus Not Detected (Not Detect); Bordetella Pertussis Not Detected (Not Detect); Chlamydophila pneumoniae Not Detected (Not Detect); Coronavirus 229E Not Detected (Not Detect); Coronavirus HKU1 Not Detected (Not Detect); Coronavirus NL63 Not Detected (Not Detect); Coronavirus OC43 Not Detected (Not Detect); Human Metapneumovirus Not Detected (Not Detect); Human Rhinovirus/Enterovirus Not Detected (Not Detect); Influenza A Subtype 2009 H1 Not Detected (Not Detect); Influenza B Not Detected (Not Detect); Mycoplasma pneumoniae Not Detected (Not Detect); Parainfluenza Virus 1 Not Detected (Not Detect); Parainfluenza Virus 2 Not Detected (Not Detect); Parainfluenza Virus 3 Not Detected (Not Detect); Parainfluenza Virus 4 Not Detected (Not Detect); Respiratory Syncytial Virus Not Detected (Not Detect)
[2019-11-15] MEDS: Budesonide/Formoterol 160/4.5 1 PUFF INH IH SCH ×2 (11:01→22:31)
[2019-11-15] MEDS: Sucralfate 1 GM TABLET PO SCH ×3 (13:01→20:30)
[2019-11-15 13:39] LABS: VBG HCO3 44 mEq/L (21-27); VBG PCO2 85 mmHg (41-51); VBG PH 7.33 pH Units (7.32-7.42); VBG PO2 200 mmHg (25-50)
[2019-11-15] MEDS ORDERED: Acetaminophen 325 MG TABLET PO PRN (17:21)
[2019-11-15] MEDS: *HR* HYDROcodone/Acet 5/325 mg TABLET PO PRN ×2 (17:32→23:20)
[2019-11-15] MEDS: Gabapentin 100 MG CAPSULE PO SCH (20:30)
[2019-11-15] MEDS ORDERED: Insulin LISPRO 300 UNITS/3 ML VIAL SQ SCH (21:00)
[2019-11-15] MEDS: Insulin DETEMIR 100 UNIT/ML X5UNITS SQ SCH (22:21)
[2019-11-16] MEDS: Ipratropium/Albuterol Neb 3 ML IH SCH ×2 (03:38→10:36)
[2019-11-16] MEDS: *HR* Heparin 5,000 UNIT/ML VIAL SQ SCH ×2 (06:15→17:03)
[2019-11-16] MEDS: Sucralfate 1 GM TABLET PO SCH ×4 (06:15→20:17)
[2019-11-16] MEDS: Insulin LISPRO 300 UNITS/3 ML VIAL SQ SCH ×4 (07:49→20:18)
[2019-11-16] MEDS: hydrALAZINE 25 MG TABLET PO SCH ×3 (08:55→20:17)
[2019-11-16] MEDS: amLODIPine 5 MG TABLET PO SCH (08:55)
[2019-11-16] MEDS: Furosemide 20 MG TABLET PO SCH (08:55)
[2019-11-16] MEDS: Folic Acid 1 MG TABLET PO SCH (08:55)
[2019-11-16] MEDS: predniSONE 20 MG TABLET PO SCH (08:55)
[2019-11-16] MEDS: Azithromycin 250 MG TABLET PO SCH (08:55)
[2019-11-16] MEDS: *HR* HYDROcodone/Acet 5/325 mg TABLET PO PRN ×2 (08:55→20:17)
[2019-11-16] MEDS: Gabapentin 100 MG CAPSULE PO SCH ×2 (08:56→20:17)
[2019-11-16] MEDS: Nicotine 14 MG PATCH.TD24 TD SCH (08:56)
[2019-11-16 10:24] LABS: BUN/Creatinine Ratio 26 (6-26); Blood Urea Nitrogen 24 mg/dL (8-23); Calcium 9.4 mg/dL (8.6-10.3); Carbon Dioxide 45 mEq/L (23-29); Chloride 96 mEq/L (98-107); Glucose 144 mg/dL (70-105); Magnesium 1.8 mg/dL (1.6-2.6); Osmolality,Calculated 301 (280-300); Phosphorous 3.5 mg/dL (2.7-4.5); Potassium 4.2 mEq/L (3.5-5.1); Sodium 142 mEq/L (136-145); eGFR For African Americans > 60 (> 60); eGFR For Non-African Americans 59 (> 60)
[2019-11-16] MEDS: Budesonide/Formoterol 160/4.5 1 PUFF INH IH SCH ×2 (10:36→20:28)
[2019-11-16] MEDS: Metoprolol XL (24 HR) Succ 50 MG TAB.ER.24H PO SCH (11:20)
[2019-11-16] MEDS: Levalbuterol Neb 1.25 MG/3 ML IH SCH ×3 (13:34→20:28)
[2019-11-16] MEDS: MethylPREDNISolone 40 MG/ML VIAL IVP SCH (17:05)
[2019-11-16] MEDS: Insulin DETEMIR 100 UNIT/ML X5UNITS SQ SCH (21:15)
[2019-11-17 01:33] LABS: BUN/Creatinine Ratio 32 (6-26); Blood Urea Nitrogen 34 mg/dL (8-23); Calcium 9.1 mg/dL (8.6-10.3); Carbon Dioxide 40 mEq/L (23-29); Chloride 98 mEq/L (98-107); Glucose 263 mg/dL (70-105); Osmolality,Calculated 305 (280-300); Phosphorous 3.3 mg/dL (2.7-4.5); Potassium 4.6 mEq/L (3.5-5.1); Sodium 139 mEq/L (136-145); eGFR For African Americans > 60 (> 60); eGFR For Non-African Americans 51 (> 60)
[2019-11-17] MEDS: Levalbuterol Neb 1.25 MG/3 ML IH SCH ×4 (03:43→21:46)
[2019-11-17 04:08] LABS: Basophils % 0.1 %; Hematocrit 32.4 % (35.3-44.9); Hemoglobin 9.7 g/dL (11.5-15.4); Immature Granulocytes % 1.1 % (0-4); Lymphocytes # 0.4 K/mcL (0.6-4.6); Lymphocytes % 3.9 %; Mean Corpuscular HGB Conc 29.9 g/dL (31.6-35.5); Mean Corpuscular Hemoglobin 28.4 pg (28.0-33.3); Mean Platelet Volume 10.7 fL (9.4-12.4); Monocytes # 0.3 K/mcL (0.0-1.3); Monocytes % 2.8 %; Neutrophils # 8.8 K/mcL (1.6-8.9); Platelet Count 191 K/mcL (140-400); Red Blood Count 3.41 M/mcL (3.82-4.97); Red Cell Distribution Width 13.4 % (11.5-14.5); Segmented Neutrophils % 92.1 %; White Blood Count 9.5 K/mcL (4.3-11.1)
[2019-11-17] MEDS: MethylPREDNISolone 40 MG/ML VIAL IVP SCH ×2 (05:44→17:41)
[2019-11-17] MEDS: *HR* Heparin 5,000 UNIT/ML VIAL SQ SCH ×2 (05:44→17:41)
[2019-11-17] MEDS: Budesonide/Formoterol 160/4.5 1 PUFF INH IH SCH ×2 (09:30→21:46)
[2019-11-17] MEDS: Gabapentin 100 MG CAPSULE PO SCH ×2 (10:04→21:39)
[2019-11-17] MEDS: amLODIPine 5 MG TABLET PO SCH (10:04)
[2019-11-17] MEDS: Folic Acid 1 MG TABLET PO SCH (10:04)
[2019-11-17] MEDS: Furosemide 20 MG TABLET PO SCH (10:05)
[2019-11-17] MEDS: hydrALAZINE 25 MG TABLET PO SCH ×3 (10:05→21:38)
[2019-11-17] MEDS: Metoprolol XL (24 HR) Succ 50 MG TAB.ER.24H PO SCH (10:06)
[2019-11-17] MEDS: Azithromycin 250 MG TABLET PO SCH (10:06)
[2019-11-17] MEDS: Nicotine 14 MG PATCH.TD24 TD SCH (10:06)
[2019-11-17] MEDS: Sucralfate 1 GM TABLET PO SCH ×4 (10:06→21:39)
[2019-11-17] MEDS: Insulin LISPRO 300 UNITS/3 ML VIAL SQ SCH ×4 (10:08→21:39)
[2019-11-17] MEDS: *HR* HYDROcodone/Acet 5/325 mg TABLET PO PRN (19:28)
[2019-11-17] MEDS: Insulin DETEMIR 100 UNIT/ML X5UNITS SQ SCH (21:39)
[2019-11-18] MEDS: *HR* HYDROcodone/Acet 5/325 mg TABLET PO PRN (01:42)
[2019-11-18 02:14] LABS: Hematocrit 30.5 % (35.3-44.9); Hemoglobin 9.5 g/dL (11.5-15.4); Mean Corpuscular HGB Conc 31.1 g/dL (31.6-35.5); Mean Corpuscular Hemoglobin 29.3 pg (28.0-33.3); Mean Corpuscular Volume 94.1 fL (83.0-100.0); Mean Platelet Volume 11.8 fL (9.4-12.4); Platelet Count 154 K/mcL (140-400); Red Blood Count 3.24 M/mcL (3.82-4.97); Red Cell Distribution Width 13.5 % (11.5-14.5); White Blood Count 12.1 K/mcL (4.3-11.1)
[2019-11-18 02:26] LABS: BUN/Creatinine Ratio 40 (6-26); Blood Urea Nitrogen 41 mg/dL (8-23); Carbon Dioxide 40 mEq/L (23-29); Chloride 100 mEq/L (98-107); Glucose 216 mg/dL (70-105); Osmolality,Calculated 309 (280-300); Potassium 4.2 mEq/L (3.5-5.1); Sodium 141 mEq/L (136-145); eGFR For African Americans > 60 (> 60); eGFR For Non-African Americans 53 (> 60)
[2019-11-18] MEDS: Levalbuterol Neb 1.25 MG/3 ML IH SCH ×2 (03:41→09:49)
[2019-11-18] MEDS: MethylPREDNISolone 40 MG/ML VIAL IVP SCH (05:58)
[2019-11-18] MEDS: *HR* Heparin 5,000 UNIT/ML VIAL SQ SCH (06:01)
[2019-11-18 07:16] VITALS: BP 167/76
[2019-11-18] MEDS: Nicotine 14 MG PATCH.TD24 TD SCH (09:04)
[2019-11-18] MEDS: hydrALAZINE 25 MG TABLET PO SCH (09:04)
[2019-11-18] MEDS: Gabapentin 100 MG CAPSULE PO SCH (09:05)
[2019-11-18] MEDS: Folic Acid 1 MG TABLET PO SCH (09:05)
[2019-11-18] MEDS: Furosemide 20 MG TABLET PO SCH (09:05)
[2019-11-18] MEDS: Azithromycin 250 MG TABLET PO SCH (09:05)
[2019-11-18] MEDS: Sucralfate 1 GM TABLET PO SCH (09:05)
[2019-11-18] MEDS: Metoprolol XL (24 HR) Succ 50 MG TAB.ER.24H PO SCH (09:05)
[2019-11-18] MEDS: amLODIPine 5 MG TABLET PO SCH (09:05)
[2019-11-18] MEDS: Insulin LISPRO 300 UNITS/3 ML VIAL SQ SCH (09:08)
[2019-11-18] MEDS: Budesonide/Formoterol 160/4.5 1 PUFF INH IH SCH (09:49)
== END 2019-11-18 10:42 | disposition home or self-care (01) ==
LOC: 3BNU 03:19 → EMEROOARM 03:19 → 3BNU 06:34 → SUATTDRO 07:24 → OBSVTOIN 07:24 → INTOOBSV 07:24
PROVIDERS: ADMIT Family Medicine; ATTEND Internal Medicine

== ENCOUNTER 2019-11-29 13:45 | Inpatient (IN) ==
[~2019-11-29 13:45] MED LIST changes: -*HR* Midazolam HCl 2 MG/2 ML VIAL IV ONE; +*HR* Rocuronium Bromide 100 MG/10 ML VIAL IVC ONE
[2019-11-29] MEDS ORDERED: Furosemide 40 MG/4 ML VIAL IVP ONE (13:55)
[2019-11-29] MEDS ORDERED: Nitroglycerin 1 INCH/GM PACKET TP ONE (13:56)
[2019-11-29] MEDS ORDERED: Nitroglycerin 0.4 MG TAB.SUBL SL ONE (13:57)
[2019-11-29 14:34] LABS: Basophils % 0.3 %; Eosinophils # 0.1 K/mcL (0.0-0.6); Eosinophils % 1.4 %; Hematocrit 38.7 % (35.3-44.9); Hemoglobin 11.3 g/dL (11.5-15.4); Immature Granulocytes % 0.7 % (0-4); Lymphocytes # 0.7 K/mcL (0.6-4.6); Lymphocytes % 9.2 %; Mean Corpuscular HGB Conc 29.2 g/dL (31.6-35.5); Mean Corpuscular Hemoglobin 29.6 pg (28.0-33.3); Mean Platelet Volume 10.1 fL (9.4-12.4); Monocytes # 0.3 K/mcL (0.0-1.3); Monocytes % 4.1 %; Neutrophils # 6.2 K/mcL (1.6-8.9); Platelet Count 212 K/mcL (140-400); Red Blood Count 3.82 M/mcL (3.82-4.97); Red Cell Distribution Width 13.6 % (11.5-14.5); Segmented Neutrophils % 84.3 %; White Blood Count 7.3 K/mcL (4.3-11.1)
[2019-11-29 14:35] LABS: Mean Corpuscular Volume 101.3 fL (83.0-100.0)
[2019-11-29 14:55] LABS: BUN/Creatinine Ratio 21 (6-26); Blood Urea Nitrogen 20 mg/dL (8-23); Calcium 9.7 mg/dL (8.6-10.3); Carbon Dioxide 39 mEq/L (23-29); Chloride 103 mEq/L (98-107); Glucose 177 mg/dL (70-105); Osmolality,Calculated 309 (280-300); Potassium 4.1 mEq/L (3.5-5.1); Sodium 146 mEq/L (136-145); Troponin I < 0.03 ng/mL (< 0.04); eGFR For African Americans > 60 (> 60); eGFR For Non-African Americans 58 (> 60)
[2019-11-29 14:57] LABS: VBG PCO2 > 150 mmHg (41-51); VBG PH 7.05 pH Units (7.32-7.42); VBG PO2 119 mmHg (25-50)
[2019-11-29] MEDS ORDERED: Piperacillin/Tazobactam 3.375 GM in 0.9 % Sodium Chloride Mini Bag 100 ML IVPB ONE (15:59)
[2019-11-29] MEDS: FentaNYL (PF) 1,000 MCG in 0.9 % Sodium Chloride 80 ML IVC SCH (16:03)
[2019-11-29 17:22] LABS: ABG Base Excess 11 mEq/L (-2 to 3); ABG HCO3 40 mEq/L (21-27); ABG Oxygen Saturation 66 % (95-98); ABG PCO2 77 mmHg (35-45); ABG PH 7.33 pH Units (7.32-7.45); ABG PO2 39 mmHg (85-104); ABG TCO2 42 mEq/L (20-26); Blood Gas Modality VC; Blood Gas VT 500 cc
[2019-11-29] MEDS ORDERED: Naloxone 0.4 MG/ML INJ IVP PRN (17:37)
[2019-11-29] MEDS ORDERED: Artificial Tears SOLN 15 ML BOTTLE BOTH EYES PRN (17:49)
[2019-11-29] MEDS ORDERED: Dextrose Gel 15 GM/37.5 ML TUBE PO PRN ×2 (17:55)
[2019-11-29] MEDS ORDERED: *HR* Dextrose 50 % in Water (Syg) 50 ML SYRINGE IVP PRN (17:55)
[2019-11-29] MEDS ORDERED: D5% in Water 1,000 ML IVC PRN (17:55)
[2019-11-29] MEDS ORDERED: Vancomycin (wt based) 1,000 MG VIAL IVPB SCH (18:00)
[2019-11-29] MEDS ORDERED: *HR* Norepinephrine 4 MG/4 ML VIAL IVC ONE (18:07)
[2019-11-29] MEDS ORDERED: 0.9 % Sodium Chloride 250 ML ONE (18:07)
[2019-11-29] MEDS: Norepinephrine 4 MG in 0.9 % Sodium Chloride 250 ML IVC SCH (18:20)
[2019-11-29] MEDS ORDERED: CLEAR EYES NATURAL TEARS 15 ML BOTTLE BOTH EYES PRN (18:30)
[2019-11-29] MEDS: Famotidine 20 MG/2 ML VIAL IVP SCH (18:31)
[2019-11-29] MEDS: Scopolamine Patch 1.5 MG PATCH.TD72 TD SCH (18:31)
[2019-11-29] MEDS ORDERED: Albumin 25% 25gram/100mL 25 GM/100 ML IV.SOLN IVPB ONE ×2 (18:36)
[2019-11-29] MEDS ORDERED: *HR* Midazolam HCl 2 MG/2 ML VIAL IVP PRN (18:41)
[2019-11-29] MEDS: Albumin 25% 25gram/100mL 25 GM/100 ML IV.SOLN IVPB SCH ×2 (18:57→20:43)
[2019-11-29 19:16] LABS: Bilirubin,Urine Negative (Negative); Blood,Urine Negative (Negative); Clarity,Urine Cloudy (Clear); Color,Urine Yellow (Yellow); Glucose,Urine (UA) Normal (Normal); Ketones,Urine Negative (Negative); Leukocyte Esterase,Urine Small (Negative); Nitrite,Urine Negative (Negative); PH,Urine 5.5 pH Units (5.0-8.0); Protein,Urine Trace mg/dL (Neg-Trace); Specific Gravity,Urine 1.017 (1.010-1.025); Urobilinogen,Urine Normal (Normal)
[2019-11-29 19:18] LABS: Bacteria,Urine None Seen per hpf (None-Few); Squamous Epithelial Cell,Urine Many per lpf (None-Few)
[2019-11-29 19:31] LABS: Hyaline Casts,Urine Few per lpf (None-Few)
[2019-11-29 19:43] LABS: Adenovirus Not Detected (Not Detect); Bordetella Pertussis Not Detected (Not Detect); Chlamydophila pneumoniae Not Detected (Not Detect); Coronavirus 229E Not Detected (Not Detect); Coronavirus HKU1 Not Detected (Not Detect); Coronavirus NL63 Not Detected (Not Detect); Coronavirus OC43 Not Detected (Not Detect); Human Metapneumovirus Not Detected (Not Detect); Human Rhinovirus/Enterovirus Not Detected (Not Detect); Influenza A Subtype 2009 H1 Not Detected (Not Detect); Influenza B Not Detected (Not Detect); Mycoplasma pneumoniae Not Detected (Not Detect); Parainfluenza Virus 1 Not Detected (Not Detect); Parainfluenza Virus 2 Not Detected (Not Detect); Parainfluenza Virus 3 Not Detected (Not Detect); Parainfluenza Virus 4 Not Detected (Not Detect); Respiratory Syncytial Virus Not Detected (Not Detect)
[2019-11-29] MEDS: Albuterol 2.5 MG/3 ML NEBULIZER IH SCH ×3 (19:49→23:16)
[2019-11-29] MEDS: Chlorhexidine Rinse 15 ML MOUTHWASH MM SCH (19:59)
[2019-11-29] MEDS: CLEAR EYES NATURAL TEARS 15 ML BOTTLE BOTH EYES SCH ×2 (20:00→23:27)
[2019-11-29] MEDS: Insulin LISPRO 300 UNITS/3 ML VIAL SQ SCH ×2 (20:00→23:29)
[2019-11-29] MEDS ORDERED: Albuterol 2.5 MG/3 ML NEBULIZER IH SCH (22:00)
[2019-11-29] MEDS: *HR* Heparin 5,000 UNIT/ML VIAL SQ SCH (23:19)
[2019-11-29] MEDS: MethylPREDNISolone 40 MG/ML VIAL IVP SCH (23:19)
[2019-11-30] MEDS ORDERED: Piperacillin/Tazobactam 3.375 GM in 0.9 % Sodium Chloride Mini Bag 100 ML IVPB SCH
[2019-11-30] MEDS: Albuterol 2.5 MG/3 ML NEBULIZER IH SCH ×4 (01:13→08:19)
[2019-11-30] MEDS: Piperacillin/Tazobactam 3.375 GM in 0.9 % Sodium Chloride Mini Bag 100 ML IVPB SCH ×3 (02:49→19:39)
[2019-11-30] MEDS: CLEAR EYES NATURAL TEARS 15 ML BOTTLE BOTH EYES SCH ×6 (03:45→23:51)
[2019-11-30] MEDS: Insulin LISPRO 300 UNITS/3 ML VIAL SQ SCH ×5 (03:45→21:24)
[2019-11-30 04:17] LABS: Basophils % 0.1 %; Eosinophils % 0.3 %; Hematocrit 29.9 % (35.3-44.9); Immature Granulocytes % 0.4 % (0-4); Lymphocytes # 0.2 K/mcL (0.6-4.6); Lymphocytes % 3.1 %; Mean Corpuscular HGB Conc 29.4 g/dL (31.6-35.5); Mean Corpuscular Hemoglobin 29.1 pg (28.0-33.3); Mean Platelet Volume 10.3 fL (9.4-12.4); Monocytes # 0.1 K/mcL (0.0-1.3); Monocytes % 1.3 %; Neutrophils # 6.8 K/mcL (1.6-8.9); Platelet Count 158 K/mcL (140-400); Red Blood Count 3.02 M/mcL (3.82-4.97); Red Cell Distribution Width 13.6 % (11.5-14.5); Segmented Neutrophils % 94.8 %; White Blood Count 7.2 K/mcL (4.3-11.1)
[2019-11-30 04:18] LABS: Hemoglobin 8.8 g/dL (11.5-15.4)
[2019-11-30 04:30] LABS: BUN/Creatinine Ratio 23 (6-26); Blood Urea Nitrogen 25 mg/dL (8-23); Calcium 9.6 mg/dL (8.6-10.3); Carbon Dioxide 40 mEq/L (23-29); Chloride 103 mEq/L (98-107); Glucose 172 mg/dL (70-105); Osmolality,Calculated 314 (280-300); Potassium 4.3 mEq/L (3.5-5.1); Sodium 148 mEq/L (136-145); eGFR For African Americans > 60 (> 60); eGFR For Non-African Americans 50 (> 60)
[2019-11-30 05:09] LABS: ABG Base Excess 14 mEq/L (-2 to 3); ABG HCO3 43 mEq/L (21-27); ABG Oxygen Saturation 92 % (95-98); ABG PCO2 84 mmHg (35-45); ABG PH 7.31 pH Units (7.32-7.45); ABG PO2 74 mmHg (85-104); ABG TCO2 45 mEq/L (20-26); Blood Gas Modality AF; Blood Gas VT 450 cc
[2019-11-30] MEDS: *HR* Heparin 5,000 UNIT/ML VIAL SQ SCH ×3 (05:31→20:19)
[2019-11-30] MEDS: Famotidine 20 MG/2 ML VIAL IVP SCH ×2 (05:31→19:39)
[2019-11-30] MEDS: FentaNYL (PF) 1,000 MCG in 0.9 % Sodium Chloride 80 ML IVC SCH ×2 (05:56→19:22)
[2019-11-30] MEDS ORDERED: Ringers Solution, Lactated 1,000 ML IVC SCH (07:00)
[2019-11-30] MEDS: MethylPREDNISolone 40 MG/ML VIAL IVP SCH ×3 (07:57→23:50)
[2019-11-30] MEDS: Nicotine 21 MG PATCH.TD24 TD SCH (07:57)
[2019-11-30] MEDS: Chlorhexidine Rinse 15 ML MOUTHWASH MM SCH ×2 (07:58→20:19)
[2019-11-30] MEDS: Norepinephrine 4 MG in 0.9 % Sodium Chloride 250 ML IVC SCH (19:49)
[2019-12-01] MEDS: Insulin LISPRO 300 UNITS/3 ML VIAL SQ SCH ×6 (01:13→21:38)
[2019-12-01] MEDS: Piperacillin/Tazobactam 3.375 GM in 0.9 % Sodium Chloride Mini Bag 100 ML IVPB SCH ×3 (01:18→18:22)
[2019-12-01] MEDS: FentaNYL (PF) 1,000 MCG in 0.9 % Sodium Chloride 80 ML IVC SCH ×3 (03:12→21:00)
[2019-12-01] MEDS: CLEAR EYES NATURAL TEARS 15 ML BOTTLE BOTH EYES SCH ×5 (04:00→21:28)
[2019-12-01 04:21] LABS: Hematocrit 25.4 % (35.3-44.9); Mean Corpuscular HGB Conc 31.9 g/dL (31.6-35.5); Mean Corpuscular Hemoglobin 29.9 pg (28.0-33.3); Mean Corpuscular Volume 93.7 fL (83.0-100.0); Mean Platelet Volume 10.7 fL (9.4-12.4); Platelet Count 146 K/mcL (140-400); Red Blood Count 2.71 M/mcL (3.82-4.97); Red Cell Distribution Width 13.8 % (11.5-14.5); White Blood Count 5.7 K/mcL (4.3-11.1)
[2019-12-01 04:22] LABS: Hemoglobin 8.1 g/dL (11.5-15.4)
[2019-12-01 04:33] LABS: ABG Base Excess 14 mEq/L (-2 to 3); ABG HCO3 40 mEq/L (21-27); ABG Oxygen Saturation 95 % (95-98); ABG PCO2 59 mmHg (35-45); ABG PH 7.44 pH Units (7.32-7.45); ABG PO2 74 mmHg (85-104); ABG TCO2 42 mEq/L (20-26); Blood Gas Modality AF; Blood Gas VT 500 cc
[2019-12-01 04:39] LABS: Calcium 9.1 mg/dL (8.6-10.3); Potassium 3.7 mEq/L (3.5-5.1)
[2019-12-01] MEDS: Famotidine 20 MG/2 ML VIAL IVP SCH ×2 (04:55→18:21)
[2019-12-01] MEDS: *HR* Heparin 5,000 UNIT/ML VIAL SQ SCH ×3 (04:55→21:00)
[2019-12-01 07:11] LABS: Magnesium 1.9 mg/dL (1.6-2.6); Phosphorous 4.1 mg/dL (2.7-4.5)
[2019-12-01] MEDS: Nicotine 21 MG PATCH.TD24 TD SCH (08:07)
[2019-12-01] MEDS ORDERED: Aminoglycoside Consult 1 EACH MC ONE (08:08)
[2019-12-01] MEDS: Chlorhexidine Rinse 15 ML MOUTHWASH MM SCH ×2 (08:09→21:39)
[2019-12-01] MEDS: MethylPREDNISolone 40 MG/ML VIAL IVP SCH ×3 (08:09→23:59)
[2019-12-02] MEDS: Insulin LISPRO 300 UNITS/3 ML VIAL SQ SCH ×7 (00:11→23:07)
[2019-12-02] MEDS: Piperacillin/Tazobactam 3.375 GM in 0.9 % Sodium Chloride Mini Bag 100 ML IVPB SCH ×3 (01:28→17:00)
[2019-12-02 03:38] LABS: ABG Base Excess 10 mEq/L (-2 to 3); ABG HCO3 37 mEq/L (21-27); ABG Oxygen Saturation 94 % (95-98); ABG PCO2 64 mmHg (35-45); ABG PH 7.37 pH Units (7.32-7.45); ABG PO2 77 mmHg (85-104); ABG TCO2 39 mEq/L (20-26); Blood Gas Modality AF; Blood Gas VT 500 cc
[2019-12-02] MEDS: CLEAR EYES NATURAL TEARS 15 ML BOTTLE BOTH EYES SCH ×7 (03:40→23:07)
[2019-12-02] MEDS: *HR* Heparin 5,000 UNIT/ML VIAL SQ SCH ×3 (03:49→20:31)
[2019-12-02] MEDS: Famotidine 20 MG/2 ML VIAL IVP SCH (03:50)
[2019-12-02 04:43] LABS: Hematocrit 25.8 % (35.3-44.9); Hemoglobin 7.9 g/dL (11.5-15.4); Mean Corpuscular HGB Conc 30.6 g/dL (31.6-35.5); Mean Corpuscular Hemoglobin 29.3 pg (28.0-33.3); Mean Corpuscular Volume 95.6 fL (83.0-100.0); Mean Platelet Volume 10.8 fL (9.4-12.4); Platelet Count 154 K/mcL (140-400); Red Cell Distribution Width 14.3 % (11.5-14.5); White Blood Count 4.5 K/mcL (4.3-11.1)
[2019-12-02 04:58] LABS: Calcium 8.7 mg/dL (8.6-10.3)
[2019-12-02] MEDS: FentaNYL (PF) 1,000 MCG in 0.9 % Sodium Chloride 80 ML IVC SCH ×2 (07:12→17:04)
[2019-12-02] MEDS: MethylPREDNISolone 40 MG/ML VIAL IVP SCH ×3 (07:48→23:07)
[2019-12-02] MEDS: Chlorhexidine Rinse 15 ML MOUTHWASH MM SCH ×2 (07:48→20:31)
[2019-12-02] MEDS: Nicotine 21 MG PATCH.TD24 TD SCH (07:48)
[2019-12-02] MEDS: Scopolamine Patch 1.5 MG PATCH.TD72 TD SCH (17:01)
[2019-12-03] MEDS: Piperacillin/Tazobactam 3.375 GM in 0.9 % Sodium Chloride Mini Bag 100 ML IVPB SCH ×3 (00:49→18:10)
[2019-12-03] MEDS: Insulin LISPRO 300 UNITS/3 ML VIAL SQ SCH ×5 (04:05→20:52)
[2019-12-03] MEDS: CLEAR EYES NATURAL TEARS 15 ML BOTTLE BOTH EYES SCH ×5 (04:05→20:52)
[2019-12-03 04:18] LABS: ABG Base Excess 6 mEq/L (-2 to 3); ABG HCO3 33 mEq/L (21-27); ABG Oxygen Saturation 88 % (95-98); ABG PCO2 60 mmHg (35-45); ABG PH 7.35 pH Units (7.32-7.45); ABG PO2 59 mmHg (85-104); ABG TCO2 35 mEq/L (20-26); Blood Gas Modality AF; Blood Gas VT 500 cc
[2019-12-03] MEDS: *HR* Heparin 5,000 UNIT/ML VIAL SQ SCH ×3 (04:57→20:51)
[2019-12-03] MEDS: FentaNYL (PF) 1,000 MCG in 0.9 % Sodium Chloride 80 ML IVC SCH ×2 (05:00→15:18)
[2019-12-03 05:01] LABS: Hemoglobin 9.1 g/dL (11.5-15.4); Mean Corpuscular HGB Conc 29.4 g/dL (31.6-35.5); Mean Corpuscular Hemoglobin 28.4 pg (28.0-33.3); Mean Corpuscular Volume 96.9 fL (83.0-100.0); Mean Platelet Volume 10.8 fL (9.4-12.4); Platelet Count 185 K/mcL (140-400); Red Cell Distribution Width 14.2 % (11.5-14.5); White Blood Count 5.7 K/mcL (4.3-11.1)
[2019-12-03 05:15] LABS: Calcium 8.8 mg/dL (8.6-10.3); Potassium 4.5 mEq/L (3.5-5.1)
[2019-12-03] MEDS: Nicotine 21 MG PATCH.TD24 TD SCH (07:53)
[2019-12-03] MEDS: Famotidine 20 MG/2 ML VIAL IVP SCH (07:55)
[2019-12-03] MEDS: MethylPREDNISolone 40 MG/ML VIAL IVP SCH ×2 (07:55→15:12)
[2019-12-03] MEDS: Chlorhexidine Rinse 15 ML MOUTHWASH MM SCH ×2 (07:55→20:51)
[2019-12-03] MEDS ORDERED: QUEtiapine Fumarate 25 MG TABLET PO SCH (21:00)
[2019-12-04] MEDS: CLEAR EYES NATURAL TEARS 15 ML BOTTLE BOTH EYES SCH ×3 (00:01→08:00)
[2019-12-04] MEDS: Insulin LISPRO 300 UNITS/3 ML VIAL SQ SCH ×6 (00:01→19:38)
[2019-12-04] MEDS: MethylPREDNISolone 40 MG/ML VIAL IVP SCH ×3 (00:03→21:13)
[2019-12-04] MEDS: Piperacillin/Tazobactam 3.375 GM in 0.9 % Sodium Chloride Mini Bag 100 ML IVPB SCH (01:47)
[2019-12-04 04:39] LABS: Hematocrit 30.5 % (35.3-44.9); Hemoglobin 9.4 g/dL (11.5-15.4); Mean Corpuscular HGB Conc 30.8 g/dL (31.6-35.5); Mean Corpuscular Hemoglobin 28.6 pg (28.0-33.3); Mean Corpuscular Volume 92.7 fL (83.0-100.0); Mean Platelet Volume 10.6 fL (9.4-12.4); Platelet Count 174 K/mcL (140-400); Red Blood Count 3.29 M/mcL (3.82-4.97); Red Cell Distribution Width 14.3 % (11.5-14.5); White Blood Count 5.7 K/mcL (4.3-11.1)
[2019-12-04 04:51] LABS: ABG Base Excess 8 mEq/L (-2 to 3); ABG HCO3 33 mEq/L (21-27); ABG Oxygen Saturation 93 % (95-98); ABG PCO2 44 mmHg (35-45); ABG PH 7.48 pH Units (7.32-7.45); ABG PO2 62 mmHg (85-104); ABG TCO2 34 mEq/L (20-26); Blood Gas Modality VC; Blood Gas VT 400 cc
[2019-12-04 04:52] LABS: Calcium 8.8 mg/dL (8.6-10.3); Potassium 4.3 mEq/L (3.5-5.1)
[2019-12-04] MEDS: *HR* Heparin 5,000 UNIT/ML VIAL SQ SCH ×3 (05:18→21:13)
[2019-12-04] MEDS: Famotidine 20 MG/2 ML VIAL IVP SCH (08:06)
[2019-12-04] MEDS: Chlorhexidine Rinse 15 ML MOUTHWASH MM SCH (08:06)
[2019-12-04] MEDS: Nicotine 21 MG PATCH.TD24 TD SCH (08:07)
[2019-12-04] MEDS ORDERED: MethylPREDNISolone 40 MG/ML VIAL IVP SCH (09:00)
[2019-12-04] MEDS ORDERED: cefTRIAXone 2,000 MG in Water for inj. (sterile) 20 ML IVP SCH (09:00)
[2019-12-04] MEDS ORDERED: Dextrose Gel 15 GM/37.5 ML TUBE PO PRN ×2 (11:32)
[2019-12-04] MEDS ORDERED: D5% in Water 1,000 ML IVC PRN (11:32)
[2019-12-04] MEDS ORDERED: Metoprolol XL (24 HR) Succ 50 MG TAB.ER.24H PO SCH (11:32)
[2019-12-04] MEDS ORDERED: *HR* Dextrose 50 % in Water (Syg) 50 ML SYRINGE IVP PRN (11:32)
[2019-12-04] MEDS ORDERED: Naloxone 0.4 MG/ML INJ IVP PRN (11:32)
[2019-12-04] MEDS: amLODIPine 5 MG TABLET PO SCH (13:03)
[2019-12-04] MEDS: Sucralfate 1 GM TABLET PO SCH ×3 (14:06→21:13)
[2019-12-04] MEDS ORDERED: Acetaminophen 325 MG TABLET PO PRN (15:12)
[2019-12-04] MEDS: hydrALAZINE 25 MG TABLET PO SCH ×2 (15:32→21:13)
[2019-12-04] MEDS ORDERED: *HR* Metformin 500 MG TABLET PO SCH (18:00)
[2019-12-04] MEDS: Budesonide/Formoterol 160/4.5 1 PUFF INH IH SCH (19:48)
[2019-12-04] MEDS ORDERED: QUEtiapine Fumarate 25 MG TABLET PO SCH (21:00)
[2019-12-04] MEDS ORDERED: Levalbuterol Neb 1.25 MG/3 ML ONE (22:57)
[2019-12-04] MEDS: Levalbuterol Neb 1.25 MG/3 ML IH SCH ×2 (23:00→23:19)
[2019-12-05] MEDS: Insulin LISPRO 300 UNITS/3 ML VIAL SQ SCH ×2 (01:06→05:10)
[2019-12-05] MEDS: Levalbuterol Neb 1.25 MG/3 ML IH SCH ×3 (03:23→11:24)
[2019-12-05] MEDS: *HR* Heparin 5,000 UNIT/ML VIAL SQ SCH (05:09)
[2019-12-05] MEDS: Budesonide/Formoterol 160/4.5 1 PUFF INH IH SCH (07:56)
[2019-12-05] MEDS ORDERED: carvediloL 6.25 MG TABLET PO SCH (08:06)
[2019-12-05] MEDS ORDERED: cefTRIAXone 2,000 MG in Water for inj. (sterile) 20 ML IVP SCH (09:00)
[2019-12-05] MEDS ORDERED: Nicotine 21 MG PATCH.TD24 TD SCH (09:00)
[2019-12-05] MEDS ORDERED: Famotidine 20 MG/2 ML VIAL IVP SCH (09:00)
[2019-12-05] MEDS ORDERED: Furosemide 20 MG TABLET PO SCH (09:00)
[2019-12-05] MEDS: Sucralfate 1 GM TABLET PO SCH (09:20)
[2019-12-05] MEDS: hydrALAZINE 25 MG TABLET PO SCH (09:20)
[2019-12-05] MEDS: amLODIPine 5 MG TABLET PO SCH (09:20)
[2019-12-05] MEDS: MethylPREDNISolone 40 MG/ML VIAL IVP SCH (09:22)
[2019-12-05 11:05] VITALS: BP 168/68
[2019-12-05] MEDS ORDERED: Insulin LISPRO 300 UNITS/3 ML VIAL SQ SCH (11:30)
[2019-12-05] MEDS ORDERED: Scopolamine Patch 1.5 MG PATCH.TD72 TD SCH (17:45)
[2019-12-05] MEDS ORDERED: Levalbuterol Neb 1.25 MG/3 ML IH SCH (22:47)
== END 2019-12-05 11:48 | disposition home or self-care (01) | DRG 130 ==
LOC: EMEROOARM 13:45 → ICNU 16:33 → SUATTDRO 16:33 → ICNU 17:30 → 2NNU 11-30 10:22 → ICNU 12-02 19:19 → 2ANU 12-04 14:03
PROVIDERS: ADMIT Internal Medicine Pulmonary Disease; ATTEND Internal Medicine

== ENCOUNTER 2019-12-10 13:59 | Inpatient (IN) ==
[2019-12-10 15:43] LABS: Bilirubin,Urine Negative (Negative); Blood,Urine Negative (Negative); Clarity,Urine Clear (Clear); Color,Urine Yellow (Yellow); Glucose,Urine (UA) 100 mg/dL (Normal); Ketones,Urine Negative (Negative); Leukocyte Esterase,Urine Negative (Negative); Nitrite,Urine Negative (Negative); PH,Urine 5.5 pH Units (5.0-8.0); Protein,Urine 30 mg/dL (Neg-Trace); Specific Gravity,Urine 1.019 (1.010-1.025); Urobilinogen,Urine Normal (Normal)
[2019-12-10 15:45] LABS: Bacteria,Urine None Seen per hpf (None-Few); Hyaline Casts,Urine None Seen per lpf (None-Few); RBC,Urine 0-3 per hpf (0-3); Squamous Epithelial Cell,Urine Few per lpf (None-Few); WBC,Urine 0-3 per hpf (0-3)
[2019-12-10 17:02] LABS: Basophils % 0.1 %; Mean Platelet Volume 9.8 fL (9.4-12.4); Red Cell Distribution Width 14.1 % (11.5-14.5)
[2019-12-10 17:04] LABS: Eosinophils # 0.2 K/mcL (0.0-0.6); Eosinophils % 1.4 %; Hematocrit 32.8 % (35.3-44.9); Hemoglobin 9.4 g/dL (11.5-15.4); Immature Granulocytes % 1.2 % (0-4); Lymphocytes # 0.6 K/mcL (0.6-4.6); Lymphocytes % 5.7 %; Mean Corpuscular HGB Conc 28.7 g/dL (31.6-35.5); Mean Corpuscular Hemoglobin 28.9 pg (28.0-33.3); Mean Corpuscular Volume 100.9 fL (83.0-100.0); Monocytes # 0.7 K/mcL (0.0-1.3); Monocytes % 6.8 %; Neutrophils # 8.8 K/mcL (1.6-8.9); Platelet Count 213 K/mcL (140-400); Red Blood Count 3.25 M/mcL (3.82-4.97); Segmented Neutrophils % 84.8 %; White Blood Count 10.4 K/mcL (4.3-11.1)
[2019-12-10 17:19] LABS: Prothrombin Time 10.8 Seconds (9.4-12.1)
[2019-12-10 17:22] LABS: Activated Partial Thrombo Time 32.9 Seconds (26.0-36.0)
[2019-12-10 17:33] LABS: Alanine Aminotransferase 8 Units/L (7-52); Albumin 4.1 g/dL (3.5-5.7); Alkaline Phosphatase 52 Units/L (34-104); Aspartate Amino Transferase 10 Units/L (13-39); BUN/Creatinine Ratio 19 (6-26); Bilirubin,Direct 0.1 mg/dL (0.0-0.2); Bilirubin,Indirect 0.2 mg/dL (0.0-1.0); Bilirubin,Total 0.3 mg/dL (0.3-1.0); Blood Urea Nitrogen 13 mg/dL (8-23); Calcium 9.4 mg/dL (8.6-10.3); Carbon Dioxide 39 mEq/L (23-29); Chloride 104 mEq/L (98-107); Ethanol < 10 mg/dL (Less than 10); Globulin 2.1 g/dL (2.4-3.5); Glucose 162 mg/dL (70-105); Osmolality,Calculated 306 (280-300); Potassium 3.8 mEq/L (3.5-5.1); Sodium 146 mEq/L (136-145); Total Protein 6.2 g/dL (6.4-8.9); Troponin I 0.07 ng/mL (< 0.04); eGFR For African Americans > 60 (> 60); eGFR For Non-African Americans > 60 (> 60)
[2019-12-10 17:35] LABS: Basophilic Stippling 1+ (Not Present); Platelet Estimate Normal (Normal); Polychromasia 1+ (Not Present)
[2019-12-10] MEDS ORDERED: Piperacillin/Tazobactam 3.375 GM in 0.9 % Sodium Chloride Mini Bag 100 ML IVPB ONE (18:46)
[2019-12-10 19:14] LABS: ABG Base Excess 13 mEq/L (-2 to 3); ABG HCO3 43 mEq/L (21-27); ABG Oxygen Saturation 97 % (95-98); ABG PCO2 97 mmHg (35-45); ABG PH 7.26 pH Units (7.32-7.45); ABG PO2 114 mmHg (85-104); ABG TCO2 46 mEq/L (20-26); Blood Gas Modality ASSIST CONTROL; Blood Gas VT 450 cc
[2019-12-10] MEDS ORDERED: Naloxone 0.4 MG/ML INJ IVP PRN (20:22)
[2019-12-10] MEDS ORDERED: Dextrose Gel 15 GM/37.5 ML TUBE PO PRN ×2 (20:28)
[2019-12-10] MEDS ORDERED: *HR* Dextrose 50 % in Water (Syg) 50 ML SYRINGE IVP PRN (20:28)
[2019-12-10] MEDS ORDERED: D5% in Water 1,000 ML IVC PRN (20:28)
[2019-12-10] MEDS ORDERED: Ipratropium/Albuterol Neb 3 ML IH SCH (20:30)
[2019-12-10] MEDS: Pantoprazole 40 MG VIAL IVP SCH (22:48)
[2019-12-10] MEDS: *HR* Heparin 5,000 UNIT/ML VIAL SQ SCH (22:48)
[2019-12-10] MEDS: FentaNYL (PF) 1,000 MCG in 0.9 % Sodium Chloride 80 ML IVC SCH (22:49)
[2019-12-10 23:54] LABS: ABG Base Excess 14 mEq/L (-2 to 3); ABG HCO3 39 mEq/L (21-27); ABG Oxygen Saturation 95 % (95-98); ABG PCO2 56 mmHg (35-45); ABG PH 7.46 pH Units (7.32-7.45); ABG PO2 73 mmHg (85-104); ABG TCO2 41 mEq/L (20-26); Blood Gas Modality ASSIST CONTROL; Blood Gas VT 450 cc
[2019-12-11] MEDS ORDERED: 0.9 % Sodium Chloride 500 ML IVC ONE (00:05)
[2019-12-11] MEDS: Insulin LISPRO 300 UNITS/3 ML VIAL SQ SCH ×6 (00:28→23:44)
[2019-12-11 03:58] LABS: ABG Base Excess 14 mEq/L (-2 to 3); ABG HCO3 39 mEq/L (21-27); ABG Oxygen Saturation 96 % (95-98); ABG PCO2 54 mmHg (35-45); ABG PH 7.47 pH Units (7.32-7.45); ABG PO2 83 mmHg (85-104); ABG TCO2 41 mEq/L (20-26); Blood Gas Modality ASSIST CONTROL; Blood Gas VT 400 cc
[2019-12-11 04:30] LABS: Hematocrit 25.5 % (35.3-44.9); Mean Corpuscular HGB Conc 29.4 g/dL (31.6-35.5); Mean Corpuscular Hemoglobin 28.8 pg (28.0-33.3); Mean Corpuscular Volume 98.1 fL (83.0-100.0); Platelet Count 177 K/mcL (140-400); Red Cell Distribution Width 13.8 % (11.5-14.5); White Blood Count 7.6 K/mcL (4.3-11.1)
[2019-12-11 04:32] LABS: Hemoglobin 7.5 g/dL (11.5-15.4)
[2019-12-11 04:38] LABS: INR 1.1; Prothrombin Time 12.3 Seconds (9.4-12.1)
[2019-12-11 04:51] LABS: Alanine Aminotransferase 6 Units/L (7-52); Albumin 3.2 g/dL (3.5-5.7); Albumin/Globulin Ratio 1.8 (1.1-2.2); Alkaline Phosphatase 39 Units/L (34-104); Aspartate Amino Transferase 8 Units/L (13-39); BUN/Creatinine Ratio 20 (6-26); Bilirubin,Total 0.3 mg/dL (0.3-1.0); Blood Urea Nitrogen 18 mg/dL (8-23); Carbon Dioxide 39 mEq/L (23-29); Chloride 107 mEq/L (98-107); Globulin 1.8 g/dL (2.4-3.5); Glucose 124 mg/dL (70-105); Magnesium 1.8 mg/dL (1.6-2.6); Osmolality,Calculated 309 (280-300); Phosphorous 1.7 mg/dL (2.7-4.5); Potassium 3.5 mEq/L (3.5-5.1); Sodium 148 mEq/L (136-145); eGFR For African Americans > 60 (> 60); eGFR For Non-African Americans > 60 (> 60)
[2019-12-11 05:24] LABS: Troponin I 0.17 ng/mL (< 0.04)
[2019-12-11] MEDS ORDERED: Aspirin 325 MG TABLET PO ONE (05:45)
[2019-12-11] MEDS: *HR* Heparin 5,000 UNIT/ML VIAL SQ SCH ×3 (06:32→21:47)
[2019-12-11] MEDS: Pantoprazole 40 MG VIAL IVP SCH (07:27)
[2019-12-11] MEDS: Furosemide 20 MG/2 ML VIAL IVP SCH (07:27)
[2019-12-11 08:18] LABS: Hemoglobin 7.7 g/dL (11.5-15.4)
[2019-12-11] MEDS: Doxycycline 100 MG in 0.9 % Sodium Chloride Mini Bag 100 ML IVPB SCH ×2 (08:21→18:22)
[2019-12-11 08:24] LABS: Fibrinogen 306 mg/dL (169-393)
[2019-12-11 08:25] LABS: D-Dimer 1341 ng/mLFEU (0-500)
[2019-12-11 08:36] LABS: C-Reactive Protein 37 mg/L (Less than 10)
[2019-12-11 08:54] LABS: Ferritin 32 ng/mL (10-120)
[2019-12-11] MEDS ORDERED: Furosemide 40 MG/4 ML VIAL IVP ONE (10:03)
[2019-12-11] MEDS ORDERED: Potassium Phosphate 44 MEQ in 0.9 % Sodium Chloride 250 ML IVPB ONE (11:13)
[2019-12-11] MEDS: D5% in Water 1,000 ML IVC SCH (12:26)
[2019-12-11] MEDS: FentaNYL (PF) 1,000 MCG in 0.9 % Sodium Chloride 80 ML IVC SCH (12:49)
[2019-12-11] MEDS: Budesonide/Formoterol 160/4.5 1 PUFF INH IH SCH (20:07)
[2019-12-12] MEDS: FentaNYL (PF) 1,000 MCG in 0.9 % Sodium Chloride 80 ML IVC SCH ×3 (03:16→20:35)
[2019-12-12 03:44] LABS: Basophils % 0.1 %; Eosinophils # 0.2 K/mcL (0.0-0.6); Eosinophils % 2.6 %; Hematocrit 24.5 % (35.3-44.9); Hemoglobin 7.5 g/dL (11.5-15.4); Immature Granulocytes % 0.6 % (0-4); Mean Corpuscular HGB Conc 30.6 g/dL (31.6-35.5); Mean Corpuscular Hemoglobin 29.1 pg (28.0-33.3); Mean Platelet Volume 10.2 fL (9.4-12.4); Monocytes # 0.7 K/mcL (0.0-1.3); Monocytes % 8.3 %; Neutrophils # 5.9 K/mcL (1.6-8.9); Platelet Count 187 K/mcL (140-400); Red Blood Count 2.58 M/mcL (3.82-4.97); Red Cell Distribution Width 14.7 % (11.5-14.5); Segmented Neutrophils % 75.4 %; White Blood Count 7.8 K/mcL (4.3-11.1)
[2019-12-12] MEDS: Insulin LISPRO 300 UNITS/3 ML VIAL SQ SCH ×6 (03:44→23:46)
[2019-12-12 04:05] LABS: BUN/Creatinine Ratio 24 (6-26); Blood Urea Nitrogen 22 mg/dL (8-23); Calcium 8.2 mg/dL (8.6-10.3); Carbon Dioxide 32 mEq/L (23-29); Chloride 104 mEq/L (98-107); Glucose 161 mg/dL (70-105); Magnesium 1.9 mg/dL (1.6-2.6); Osmolality,Calculated 301 (280-300); Potassium 3.1 mEq/L (3.5-5.1); Sodium 142 mEq/L (136-145); eGFR For African Americans > 60 (> 60); eGFR For Non-African Americans > 60 (> 60)
[2019-12-12 04:45] LABS: ABG Base Excess 10 mEq/L (-2 to 3); ABG HCO3 36 mEq/L (21-27); ABG Oxygen Saturation 93 % (95-98); ABG PCO2 53 mmHg (35-45); ABG PH 7.44 pH Units (7.32-7.45); ABG PO2 65 mmHg (85-104); ABG TCO2 37 mEq/L (20-26); Blood Gas Modality ASSIST CONTROL; Blood Gas VT 400 cc
[2019-12-12] MEDS: Doxycycline 100 MG in 0.9 % Sodium Chloride Mini Bag 100 ML IVPB SCH ×2 (06:14→17:33)
[2019-12-12] MEDS: *HR* Heparin 5,000 UNIT/ML VIAL SQ SCH ×3 (06:14→21:42)
[2019-12-12] MEDS ORDERED: Potassium Chloride Elixir 20 MEQ/15 ML UDC PO ONE (07:03)
[2019-12-12] MEDS: Budesonide/Formoterol 160/4.5 1 PUFF INH IH SCH ×2 (07:26→20:06)
[2019-12-12] MEDS: Pantoprazole 40 MG VIAL IVP SCH (08:17)
[2019-12-12] MEDS: Furosemide 20 MG/2 ML VIAL IVP SCH (08:17)
[2019-12-12] MEDS ORDERED: *HR* Succinylcholine 200 MG/10 ML VIAL IVP ONE (09:18)
[2019-12-12] MEDS ORDERED: *HR* Etomidate 20 MG/10 ML AMPUL IVP ONE (09:18)
[2019-12-12 10:01] LABS: Folate 19.5 ng/mL (3.0-16.0)
[2019-12-12 10:54] LABS: Phosphorous 3.7 mg/dL (2.7-4.5)
[2019-12-12] MEDS ORDERED: Cyanocobalamin (B-12) 1,000 MCG/ML VIAL IM ONE (16:04)
[2019-12-12] MEDS ORDERED: Artificial Tears SOLN 15 ML BOTTLE BOTH EYES PRN ×2 (17:08→18:58)
[2019-12-12] MEDS ORDERED: Racepinephrine Neb 0.5 ML VIAL IH ONE ×2 (18:08→18:09)
[2019-12-12] MEDS ORDERED: Ipratropium/Albuterol Neb 3 ML ONE (18:24)
[2019-12-12] MEDS: Ipratropium/Albuterol Neb 3 ML IH SCH ×2 (18:28→23:45)
[2019-12-12] MEDS ORDERED: Furosemide 40 MG/4 ML VIAL IVP ONE (18:31)
[2019-12-12] MEDS: Chlorhexidine Rinse 15 ML MOUTHWASH MM SCH (19:32)
[2019-12-12] MEDS: Artificial Tears SOLN 15 ML BOTTLE BOTH EYES SCH ×2 (19:33→23:46)
[2019-12-12] MEDS ORDERED: Artificial Tears SOLN 15 ML BOTTLE BOTH EYES SCH (20:00)
[2019-12-12] MEDS ORDERED: Chlorhexidine Rinse 15 ML MOUTHWASH MM SCH (21:00)
[2019-12-12 21:08] LABS: ABG Base Excess 10 mEq/L (-2 to 3); ABG HCO3 37 mEq/L (21-27); ABG Oxygen Saturation 90 % (95-98); ABG PCO2 65 mmHg (35-45); ABG PH 7.36 pH Units (7.32-7.45); ABG PO2 62 mmHg (85-104); ABG TCO2 39 mEq/L (20-26); Blood Gas Modality AF; Blood Gas VT 400 cc
[2019-12-12] MEDS ORDERED: Albuterol 2.5 MG/3 ML NEBULIZER IH PRN (22:06)
[2019-12-13] MEDS: Artificial Tears SOLN 15 ML BOTTLE BOTH EYES SCH ×6 (03:41→23:28)
[2019-12-13] MEDS: Piperacillin/Tazobactam 3.375 GM in 0.9 % Sodium Chloride Mini Bag 100 ML IVPB SCH ×3 (03:42→17:56)
[2019-12-13] MEDS: Insulin LISPRO 300 UNITS/3 ML VIAL SQ SCH ×6 (03:57→23:28)
[2019-12-13] MEDS: Ipratropium/Albuterol Neb 3 ML IH SCH ×6 (04:00→23:26)
[2019-12-13 04:01] LABS: Basophils % 0.1 %; Eosinophils # 0.2 K/mcL (0.0-0.6); Eosinophils % 2.4 %; Hematocrit 25.6 % (35.3-44.9); Hemoglobin 7.7 g/dL (11.5-15.4); Immature Granulocytes % 1.2 % (0-4); Lymphocytes # 0.9 K/mcL (0.6-4.6); Lymphocytes % 13.5 %; Mean Corpuscular HGB Conc 30.1 g/dL (31.6-35.5); Mean Corpuscular Hemoglobin 28.5 pg (28.0-33.3); Mean Corpuscular Volume 94.8 fL (83.0-100.0); Mean Platelet Volume 10.1 fL (9.4-12.4); Monocytes # 0.5 K/mcL (0.0-1.3); Monocytes % 6.5 %; Neutrophils # 5.3 K/mcL (1.6-8.9); Platelet Count 220 K/mcL (140-400); Red Cell Distribution Width 14.6 % (11.5-14.5); Segmented Neutrophils % 76.3 %; White Blood Count 6.9 K/mcL (4.3-11.1)
[2019-12-13 04:25] LABS: BUN/Creatinine Ratio 23 (6-26); Blood Urea Nitrogen 21 mg/dL (8-23); Calcium 8.6 mg/dL (8.6-10.3); Carbon Dioxide 38 mEq/L (23-29); Chloride 100 mEq/L (98-107); Glucose 86 mg/dL (70-105); Osmolality,Calculated 294 (280-300); Potassium 3.3 mEq/L (3.5-5.1); Sodium 141 mEq/L (136-145); eGFR For African Americans > 60 (> 60); eGFR For Non-African Americans > 60 (> 60)
[2019-12-13 04:43] LABS: ABG Base Excess 10 mEq/L (-2 to 3); ABG HCO3 36 mEq/L (21-27); ABG Oxygen Saturation 86 % (95-98); ABG PCO2 59 mmHg (35-45); ABG PH 7.39 pH Units (7.32-7.45); ABG PO2 53 mmHg (85-104); ABG TCO2 38 mEq/L (20-26); Blood Gas Modality AF; Blood Gas VT 400 cc
[2019-12-13] MEDS: FentaNYL (PF) 1,000 MCG in 0.9 % Sodium Chloride 80 ML IVC SCH ×2 (04:50→17:47)
[2019-12-13] MEDS: Doxycycline 100 MG in 0.9 % Sodium Chloride Mini Bag 100 ML IVPB SCH (06:35)
[2019-12-13] MEDS: *HR* Heparin 5,000 UNIT/ML VIAL SQ SCH ×2 (06:35→17:52)
[2019-12-13] MEDS: MethylPREDNISolone 40 MG/ML VIAL IVP SCH ×2 (06:35→17:53)
[2019-12-13] MEDS ORDERED: Potassium Chloride Elixir 20 MEQ/15 ML UDC GTUBE ONE (07:15)
[2019-12-13] MEDS: Budesonide/Formoterol 160/4.5 1 PUFF INH IH SCH ×2 (07:37→19:41)
[2019-12-13] MEDS: Furosemide 20 MG/2 ML VIAL IVP SCH (08:07)
[2019-12-13] MEDS: Chlorhexidine Rinse 15 ML MOUTHWASH MM SCH ×2 (08:07→19:36)
[2019-12-13] MEDS ORDERED: Aminoglycoside Consult 1 EACH MC ONE (08:14)
[2019-12-13] MEDS: Pantoprazole 40 MG VIAL IVP SCH (08:20)
[2019-12-13] MEDS ORDERED: Furosemide 20 MG/2 ML VIAL IVP ONE (09:07)
[2019-12-13] MEDS: carvediloL 6.25 MG TABLET PO SCH ×2 (09:33→16:31)
[2019-12-13] MEDS: Dexmedetomidine HCl 400 MCG/100 ML MLS IVC SCH (09:33)
[2019-12-13] MEDS: amLODIPine 5 MG TABLET PO SCH (11:34)
[2019-12-13] MEDS: Sennosides/Docusate Sodium TABLET PO SCH ×2 (11:59→19:36)
[2019-12-13 15:00] LABS: BUN/Creatinine Ratio 23 (6-26); Blood Urea Nitrogen 23 mg/dL (8-23); Calcium 8.8 mg/dL (8.6-10.3); Carbon Dioxide 34 mEq/L (23-29); Chloride 98 mEq/L (98-107); Glucose 142 mg/dL (70-105); Magnesium 2.1 mg/dL (1.6-2.6); Osmolality,Calculated 298 (280-300); Potassium 4.2 mEq/L (3.5-5.1); Sodium 141 mEq/L (136-145); eGFR For African Americans > 60 (> 60); eGFR For Non-African Americans 55 (> 60)
[2019-12-13] MEDS ORDERED: Furosemide 40 MG/4 ML VIAL IVP SCH (18:00)
[2019-12-14] MEDS: Dexmedetomidine HCl 400 MCG/100 ML MLS IVC SCH ×2 (00:38→10:28)
[2019-12-14] MEDS: FentaNYL (PF) 1,000 MCG in 0.9 % Sodium Chloride 80 ML IVC SCH ×2 (01:15→13:04)
[2019-12-14] MEDS: Piperacillin/Tazobactam 3.375 GM in 0.9 % Sodium Chloride Mini Bag 100 ML IVPB SCH ×3 (03:22→18:23)
[2019-12-14] MEDS: Artificial Tears SOLN 15 ML BOTTLE BOTH EYES SCH ×5 (03:22→19:42)
[2019-12-14] MEDS: Ipratropium/Albuterol Neb 3 ML IH SCH ×6 (03:25→23:39)
[2019-12-14] MEDS: Insulin LISPRO 300 UNITS/3 ML VIAL SQ SCH ×5 (03:50→19:41)
[2019-12-14 04:11] LABS: Hematocrit 26.6 % (35.3-44.9); Hemoglobin 8.3 g/dL (11.5-15.4); Lymphocytes # 0.5 K/mcL (0.6-4.6); Lymphocytes % 6.6 %; Mean Corpuscular HGB Conc 31.2 g/dL (31.6-35.5); Mean Corpuscular Hemoglobin 28.7 pg (28.0-33.3); Mean Platelet Volume 10.6 fL (9.4-12.4); Monocytes # 0.2 K/mcL (0.0-1.3); Neutrophils # 6.5 K/mcL (1.6-8.9); Platelet Count 239 K/mcL (140-400); Red Blood Count 2.89 M/mcL (3.82-4.97); Red Cell Distribution Width 14.6 % (11.5-14.5); Segmented Neutrophils % 89.4 %; White Blood Count 7.3 K/mcL (4.3-11.1)
[2019-12-14 04:27] LABS: Calcium 8.8 mg/dL (8.6-10.3); Magnesium 1.9 mg/dL (1.6-2.6); Phosphorous 4.7 mg/dL (2.7-4.5); Potassium 4.3 mEq/L (3.5-5.1)
[2019-12-14 05:19] LABS: ABG Base Excess 9 mEq/L (-2 to 3); ABG HCO3 34 mEq/L (21-27); ABG Oxygen Saturation 92 % (95-98); ABG PCO2 51 mmHg (35-45); ABG PH 7.44 pH Units (7.32-7.45); ABG PO2 64 mmHg (85-104); ABG TCO2 36 mEq/L (20-26); Blood Gas Modality AF; Blood Gas VT 400 cc
[2019-12-14] MEDS: *HR* Heparin 5,000 UNIT/ML VIAL SQ SCH ×2 (05:23→18:26)
[2019-12-14] MEDS: MethylPREDNISolone 40 MG/ML VIAL IVP SCH ×2 (05:23→18:26)
[2019-12-14] MEDS ORDERED: Furosemide 40 MG/4 ML VIAL IVP SCH (06:00)
[2019-12-14] MEDS: Budesonide/Formoterol 160/4.5 1 PUFF INH IH SCH ×2 (07:35→19:40)
[2019-12-14] MEDS: carvediloL 6.25 MG TABLET PO SCH ×2 (08:06→16:34)
[2019-12-14] MEDS: Chlorhexidine Rinse 15 ML MOUTHWASH MM SCH ×2 (08:06→19:40)
[2019-12-14] MEDS: Pantoprazole 40 MG VIAL IVP SCH (08:09)
[2019-12-14] MEDS: Sennosides/Docusate Sodium TABLET PO SCH ×2 (08:09→19:40)
[2019-12-14] MEDS: amLODIPine 5 MG TABLET PO SCH (08:10)
[2019-12-14] MEDS ORDERED: *HR* Midazolam HCl 2 MG/2 ML VIAL IVP ONE (10:08)
[2019-12-14] MEDS ORDERED: *HR* Midazolam HCl 2 MG/2 ML VIAL IVP PRN (10:21)
[2019-12-14] MEDS: D5% in Water 1,000 ML IVC SCH (19:33)
[2019-12-15] MEDS: Dexmedetomidine HCl 400 MCG/100 ML MLS IVC SCH ×2 (00:13→14:56)
[2019-12-15] MEDS: Insulin LISPRO 300 UNITS/3 ML VIAL SQ SCH ×7 (00:37→23:47)
[2019-12-15] MEDS: Artificial Tears SOLN 15 ML BOTTLE BOTH EYES SCH ×7 (00:39→23:46)
[2019-12-15] MEDS: FentaNYL (PF) 1,000 MCG in 0.9 % Sodium Chloride 80 ML IVC SCH (01:07)
[2019-12-15] MEDS: Piperacillin/Tazobactam 3.375 GM in 0.9 % Sodium Chloride Mini Bag 100 ML IVPB SCH ×3 (03:04→18:12)
[2019-12-15] MEDS: Ipratropium/Albuterol Neb 3 ML IH SCH ×6 (03:40→23:13)
[2019-12-15 04:09] LABS: Eosinophils % 0.1 %; Hematocrit 26.9 % (35.3-44.9); Hemoglobin 8.2 g/dL (11.5-15.4); Immature Granulocytes % 0.4 % (0-4); Lymphocytes # 0.6 K/mcL (0.6-4.6); Lymphocytes % 7.9 %; Mean Corpuscular HGB Conc 30.5 g/dL (31.6-35.5); Mean Corpuscular Hemoglobin 28.7 pg (28.0-33.3); Mean Corpuscular Volume 94.1 fL (83.0-100.0); Mean Platelet Volume 10.6 fL (9.4-12.4); Monocytes # 0.4 K/mcL (0.0-1.3); Monocytes % 5.3 %; Platelet Count 230 K/mcL (140-400); Red Blood Count 2.86 M/mcL (3.82-4.97); Red Cell Distribution Width 14.6 % (11.5-14.5); Segmented Neutrophils % 86.3 %; White Blood Count 6.9 K/mcL (4.3-11.1)
[2019-12-15 04:28] LABS: Calcium 8.4 mg/dL (8.6-10.3); Potassium 3.9 mEq/L (3.5-5.1)
[2019-12-15 04:30] LABS: ABG Base Excess 13 mEq/L (-2 to 3); ABG HCO3 40 mEq/L (21-27); ABG Oxygen Saturation 89 % (95-98); ABG PCO2 64 mmHg (35-45); ABG PO2 59 mmHg (85-104); ABG TCO2 41 mEq/L (20-26); Blood Gas Modality AF; Blood Gas VT 400 cc
[2019-12-15] MEDS: *HR* Heparin 5,000 UNIT/ML VIAL SQ SCH ×2 (05:33→18:12)
[2019-12-15] MEDS: MethylPREDNISolone 40 MG/ML VIAL IVP SCH ×2 (05:33→18:12)
[2019-12-15] MEDS: Budesonide/Formoterol 160/4.5 1 PUFF INH IH SCH ×2 (07:29→19:28)
[2019-12-15] MEDS: amLODIPine 5 MG TABLET PO SCH (07:46)
[2019-12-15] MEDS: Pantoprazole 40 MG VIAL IVP SCH (07:46)
[2019-12-15] MEDS: Sennosides/Docusate Sodium TABLET PO SCH ×2 (07:46→20:18)
[2019-12-15] MEDS: carvediloL 6.25 MG TABLET PO SCH ×2 (07:46→15:27)
[2019-12-15] MEDS: Chlorhexidine Rinse 15 ML MOUTHWASH MM SCH ×2 (07:46→20:18)
[2019-12-15] MEDS: Cyanocobalamin (B-12) 1,000 MCG/ML VIAL IM SCH (07:47)
[2019-12-15] MEDS ORDERED: Furosemide 40 MG/4 ML VIAL IVP SCH (09:00)
[2019-12-16] MEDS: Piperacillin/Tazobactam 3.375 GM in 0.9 % Sodium Chloride Mini Bag 100 ML IVPB SCH ×3 (02:40→18:53)
[2019-12-16] MEDS: Ipratropium/Albuterol Neb 3 ML IH SCH ×6 (03:43→23:48)
[2019-12-16 03:55] LABS: Basophils % 0.2 %; Hematocrit 27.6 % (35.3-44.9); Hemoglobin 8.5 g/dL (11.5-15.4); Immature Granulocytes % 0.7 % (0-4); Lymphocytes # 0.4 K/mcL (0.6-4.6); Lymphocytes % 5.7 %; Mean Corpuscular HGB Conc 30.8 g/dL (31.6-35.5); Mean Corpuscular Hemoglobin 28.8 pg (28.0-33.3); Mean Corpuscular Volume 93.6 fL (83.0-100.0); Mean Platelet Volume 9.9 fL (9.4-12.4); Monocytes # 0.3 K/mcL (0.0-1.3); Monocytes % 4.6 %; Neutrophils # 5.4 K/mcL (1.6-8.9); Platelet Count 239 K/mcL (140-400); Red Blood Count 2.95 M/mcL (3.82-4.97); Red Cell Distribution Width 14.2 % (11.5-14.5); Segmented Neutrophils % 88.8 %; White Blood Count 6.1 K/mcL (4.3-11.1)
[2019-12-16 04:16] LABS: BUN/Creatinine Ratio 31 (6-26); Blood Urea Nitrogen 29 mg/dL (8-23); Carbon Dioxide 38 mEq/L (23-29); Chloride 99 mEq/L (98-107); Glucose 156 mg/dL (70-105); Osmolality,Calculated 305 (280-300); Potassium 3.7 mEq/L (3.5-5.1); Sodium 143 mEq/L (136-145); eGFR For African Americans > 60 (> 60); eGFR For Non-African Americans 58 (> 60)
[2019-12-16] MEDS: Artificial Tears SOLN 15 ML BOTTLE BOTH EYES SCH ×2 (04:45→08:22)
[2019-12-16] MEDS: Insulin LISPRO 300 UNITS/3 ML VIAL SQ SCH ×6 (04:46→20:45)
[2019-12-16] MEDS: Dexmedetomidine HCl 400 MCG/100 ML MLS IVC SCH (04:48)
[2019-12-16] MEDS: *HR* Heparin 5,000 UNIT/ML VIAL SQ SCH ×2 (05:43→17:46)
[2019-12-16] MEDS: MethylPREDNISolone 40 MG/ML VIAL IVP SCH (05:43)
[2019-12-16] MEDS ORDERED: *HR* HYDROcodone/Acet 5/325 mg TABLET PO ONE (06:49)
[2019-12-16] MEDS: Budesonide/Formoterol 160/4.5 1 PUFF INH IH SCH ×2 (07:27→19:50)
[2019-12-16] MEDS: Chlorhexidine Rinse 15 ML MOUTHWASH MM SCH ×2 (08:22→19:53)
[2019-12-16] MEDS: Cyanocobalamin (B-12) 1,000 MCG/ML VIAL IM SCH (08:26)
[2019-12-16] MEDS: Pantoprazole 40 MG VIAL IVP SCH (08:26)
[2019-12-16] MEDS: Sennosides/Docusate Sodium TABLET PO SCH ×3 (08:27→21:07)
[2019-12-16] MEDS: carvediloL 6.25 MG TABLET PO SCH ×2 (08:27→17:45)
[2019-12-16] MEDS: amLODIPine 5 MG TABLET PO SCH (08:27)
[2019-12-16] MEDS ORDERED: D5% in Water 1,000 ML IVC PRN (10:45)
[2019-12-16] MEDS ORDERED: Naloxone 0.4 MG/ML INJ IVP PRN (10:45)
[2019-12-16] MEDS ORDERED: Artificial Tears SOLN 15 ML BOTTLE BOTH EYES PRN (10:45)
[2019-12-16] MEDS ORDERED: *HR* Dextrose 50 % in Water (Syg) 50 ML SYRINGE IVP PRN (10:45)
[2019-12-16] MEDS ORDERED: Albuterol 2.5 MG/3 ML NEBULIZER IH PRN (10:45)
[2019-12-16] MEDS ORDERED: Dextrose Gel 15 GM/37.5 ML TUBE PO PRN ×2 (10:45)
[2019-12-16] MEDS ORDERED: carvediloL 6.25 MG TABLET PO SCH (17:00)
[2019-12-16] MEDS: predniSONE 20 MG TABLET PO SCH (18:54)
[2019-12-16] MEDS ORDERED: predniSONE 20 MG TABLET PO SCH (19:00)
[2019-12-17] MEDS: Piperacillin/Tazobactam 3.375 GM in 0.9 % Sodium Chloride Mini Bag 100 ML IVPB SCH ×3 (01:49→18:26)
[2019-12-17] MEDS: Ipratropium/Albuterol Neb 3 ML IH SCH ×6 (03:39→23:21)
[2019-12-17] MEDS: *HR* Heparin 5,000 UNIT/ML VIAL SQ SCH (04:47)
[2019-12-17] MEDS: Budesonide/Formoterol 160/4.5 1 PUFF INH IH SCH ×2 (07:45→19:33)
[2019-12-17] MEDS: Chlorhexidine Rinse 15 ML MOUTHWASH MM SCH (07:49)
[2019-12-17] MEDS: Insulin LISPRO 300 UNITS/3 ML VIAL SQ SCH ×4 (07:49→21:14)
[2019-12-17] MEDS: Sennosides/Docusate Sodium TABLET PO SCH ×2 (07:49→21:16)
[2019-12-17] MEDS: carvediloL 6.25 MG TABLET PO SCH ×2 (07:49→16:11)
[2019-12-17] MEDS: amLODIPine 5 MG TABLET PO SCH (07:50)
[2019-12-17] MEDS: predniSONE 20 MG TABLET PO SCH ×2 (07:50→16:11)
[2019-12-17] MEDS ORDERED: Pantoprazole 40 MG VIAL IVP SCH (09:00)
[2019-12-17] MEDS ORDERED: Cyanocobalamin (B-12) 1,000 MCG/ML VIAL IM SCH (09:00)
[2019-12-17] MEDS: Doxycycline 100 MG in 0.9 % Sodium Chloride Mini Bag 100 ML IVPB SCH (13:29)
[2019-12-17] MEDS: Sucralfate 1 GM TABLET PO SCH (16:11)
[2019-12-18] MEDS: Doxycycline 100 MG in 0.9 % Sodium Chloride Mini Bag 100 ML IVPB SCH ×2 (00:55→11:14)
[2019-12-18] MEDS: Piperacillin/Tazobactam 3.375 GM in 0.9 % Sodium Chloride Mini Bag 100 ML IVPB SCH ×3 (03:30→19:32)
[2019-12-18] MEDS: Ipratropium/Albuterol Neb 3 ML IH SCH ×6 (03:48→23:30)
[2019-12-18] MEDS: Sucralfate 1 GM TABLET PO SCH ×2 (06:55→16:34)
[2019-12-18] MEDS: Sennosides/Docusate Sodium TABLET PO SCH ×2 (07:31→20:32)
[2019-12-18] MEDS: carvediloL 6.25 MG TABLET PO SCH ×2 (07:31→16:33)
[2019-12-18] MEDS: amLODIPine 5 MG TABLET PO SCH (07:32)
[2019-12-18] MEDS: predniSONE 20 MG TABLET PO SCH ×2 (07:32→16:34)
[2019-12-18] MEDS: Insulin LISPRO 300 UNITS/3 ML VIAL SQ SCH ×4 (08:13→22:03)
[2019-12-18] MEDS: Budesonide/Formoterol 160/4.5 1 PUFF INH IH SCH ×2 (11:02→19:58)
[2019-12-18] MEDS: Furosemide 20 MG/2 ML VIAL IVP SCH ×2 (11:10→20:32)
[2019-12-19] MEDS: Piperacillin/Tazobactam 3.375 GM in 0.9 % Sodium Chloride Mini Bag 100 ML IVPB SCH (03:23)
[2019-12-19] MEDS ORDERED: hydrALAZINE 10 MG TABLET PO ONE (03:44)
[2019-12-19] MEDS: Ipratropium/Albuterol Neb 3 ML IH SCH ×2 (03:57→07:58)
[2019-12-19 06:59] VITALS: BP 166/96
[2019-12-19] MEDS: Budesonide/Formoterol 160/4.5 1 PUFF INH IH SCH (07:58)
== END 2019-12-19 08:46 | disposition home health service (06) | DRG 133 ==
LOC: EMEROOARM 13:59 → 2NNU 13:59 → SUATTDRO 20:26 → 2NENU 12-11 17:51 → ICNU 12-11 20:08 → 3ANU 12-16 15:35
PROVIDERS: ADMIT Student in an Organized Health Care Education/Training Program; ATTEND Pharmacist
PROC: ENDOEBX (2019-12-12 14:00)